=== PATIENT | male | born 1950 | race Caucasian/White ===

== ENCOUNTER → 2017-09-26 | Outpatient (CLI) | payer MEDICARE, MEDICAID ==
[~2017-09-26] MED LIST: ACET-2267 PO; ACET325T38 PO; ACHD5005 PO; ALBU17AE3 IH; ALBU8.5H2 INH; AMIN887L16 PO; AMOX-358 PO; ASPI-983 PO; CALC10009 PO; CALCIUM ALGINATE TOP; CHOL10007 PO; CHOL200059 PO; CHOLESTEROL PILL PO; CIPR-225 PO; CLIN150C17 PO; CLN150C PO; CLOP75TA28 PO; CLOP75TA69 PO; CYAN10006 PO; DCS100C PO; DESV50TA PO; DESV50TA18 PO; DOXY100C2 PO; DULO20CA PO; DULO60CA58 PO; DVL125C PO; ENXP40I.4 SQ; EXELON; FAMO1TAB3 PO; FERR-84 PO; FERR325T18 PO; FOLI1TAB24 PO; GABA-488 PO; GABA-490 PO; GABA300C PO; GUAI100L13 PO; HYDR1TAB PO; IBUP-1780 PO; INSU100I29 SC; INSU100V5 SQ; IPRA3AMP IH; Insulin Human Lispro SC; LACT1CAP57 PO; LACT1CAP8 PO; LITH150C PO; LURA20TA PO; LURA40TA3 PO; MECL-124 PO; MELA1TAB10 PO; MENT5.8L MM; MENT71OI TP; METF-380 PO; METF1000 PO; METF500T4 PO; MULT-928 PO; PIOG45TA18 PO; PIOG45TA7 PO; POLY119P PO; POLY17PO6 PO; PRAV40TA PO; Polyethylene Glycol PO; RIVA1.5C2 PO; RIVA1.5C6 PO; RIVA1PAT TD; SERT100T PO; SIMV40TA4 PO; SULF1TAB35 PO; TRAM50TA2 PO; ZIPR80CA9 PO; ZPR20C PO; [UNRECOGNIZED DRUG - CODE] TP
[2017-09-26 12:09] LABS: BILIRUBIN,URINE NEGATIVE (NEGATIVE); CLARITY,URINE CLEAR; COLOR,URINE YELLOW; GLUCOSE, URINE (UA) 1+ (NEGATIVE); KETONES,URINE NEGATIVE (NEGATIVE); LEUKOCYTE ESTERASE ,URINE 2+ (NEGATIVE); NITRITE,URINE NEGATIVE (NEGATIVE); PH,URINE 6 (5-9); PROTEIN,URINE 1+ (NEGATIVE); UROBILINOGEN,URINE 1 MG/DL (NORMAL)
[2017-09-26 12:17] LABS: BACTERIA,URINE NEGATIVE /HPF; CALCIUM OXALATE CRYSTALS,UR LARGE /LPF; RBC,URINE RARE /HPF; WBC,URINE 0-2 /HPF
== END ==
PROVIDERS: ATTEND Internal Medicine
DX: N40.0 Benign prostatic hyperplasia without lower urinary tract symptoms (principal)
CPT/HCPCS: 81000

== ENCOUNTER 2018-05-13 07:00 | Inpatient (IN) | payer MEDICARE, MEDICAID ==
[~2018-05-13] VITALS: Ht 182.9 cm; Wt 86.7 kg
[~2018-05-13 07:00] MED LIST changes: +DIVA125C PO; -DVL125C PO; -IPRA3AMP IH; +IPRA3AMP31 IH; +METF-399 PO; -METF1000 PO; -PIOG45TA18 PO; +PIOG45TA65 PO
[2018-05-13] MEDS ORDERED: NS IV 1000 ML 1,000 ML ONE (07:21)
--- OUTSIDE RECORDS SUMMARY | 2018-05-13 07:28 | XMS REPORT ---
Author Author PRECIOUS BOTELLO [facility] Address [address] [place] [address] Care Team Providers Care Individual Pension Consultant Name Role Phone PRECIOUS BOTELLO Unavailable PROBLEMS Type Condition ICD9-CM Code LYF27-BQ Code Onset Dates Condition Status SNOMED Code Problem Status post closed fracture of hip Z87.81 Active 621165758 Problem Dementia in other diseases classified elsewhere without behavioral disturbance F02.80 Active 735908293 Problem Type 2 diabetes mellitus with other circulatory complication, without long-term current use of insulin E11.59 Active 48250422 Problem Panlobular emphysema J43.1 Active 0618074 Problem Enlarged prostate with lower urinary tract symptoms N40.1 Active [id number] Problem Benign prostatic hyperplasia with lower urinary tract symptoms N40.1 Active 834739613 Problem Polydipsia R63.1 Active 01438651 Problem Depression F32.9 Active 75433032 Problem Type 2 diabetes mellitus with hyperglycemia E11.65 Active [id number] Problem HTN (hypertension) I10 Active 54678078 Problem Bipolar disorder, unspecified F31.9 Active 67604314 Problem Acute left-sided low back pain with left-sided sciatica M54.42 Active 827132771 Problem Low back pain, unspecified back pain laterality, with sciatica presence unspecified M54.5 Active 284779146 Problem 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 Active 44392674 Problem Type 2 diabetes mellitus with diabetic polyneuropathy E11.42 Active 175620549 Problem GERD with esophagitis K21.0 Active 136375424 Problem Status post partial amputation of left foot Z89.432 Active 867197274 Problem Hammer toe, unspecified laterality M20.40 Active 002310671 Problem Tinea pedis, unspecified laterality B35.3 Active 9229001 Problem Other Alzheimers disease G30.8 Active 31114898 Problem Peripheral vascular disease due to secondary diabetes E13.51 Active 0440553 Problem Severe pain R52 Active 58841657 ALLERGIES Substance Reaction Event Type Date Status Keflex Unknown Drug Allergy Apr, Active ENCOUNTERS Encounter Location Date Diagnosis [facility] [address] [id number] 15 Apr, 2018 Depression F32.9 and Bipolar disorder, unspecified F31.9 [facility] [address] [place] [address] 85446- 7887 13 Apr, 2018 [facility] [id number] [place] [address] 07584- 4634 Apr, [facility] [id number] [place] [address] 33831- 2425 Mar, [facility] [id number] [place] [address] 83258- 0221 14 Feb, 2018 Acute left-sided low back pain with left-sided sciatica M54.42 [facility] [id number] [place] [address] 50073- 5600 Feb, [facility] [address] [id number] Jan, Acute left-sided low back pain with left-sided sciatica M54.42 [facility] [id number] [place] [address] 84318- 6145 Jan, Arthralgia, unspecified joint M25.[address] [facility] [address] [id number] Jan, Left hip pain M25.552 ; Acute pain of left knee M25.562 and Tobacco abuse Z72.0 [facility] [address] [place] [address] 31617- 4765 Jan, [facility] [address] [place] [id number] Jan, Tobacco abuse Z72.0 [facility] [address] [place] [address] 96644- 1041 Dec, [facility] [id number] [place] [address] 30340- 7657 Dec, Arthralgia, unspecified joint M25.50 [facility] [address] [place] [address] 00252- 9478 Dec, [facility] [id number] [place] [address] 71333- 6815 Dec, [facility] [id number] Dec, Dementia in other diseases classified elsewhere without behavioral disturbance F02.80 ; Peripheral vascular disease due to secondary diabetes E13.51 and 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 [facility] [id number] [place] [address] 04744- 2614 Nov, Arthralgia, unspecified joint M25.50 [facility] [id number] [place] [address] 39515- 6321 Nov, [facility] [id number] [place] [address] 12350- 8610 October, Arthralgia, unspecified joint M25.[address] [id number] October, Arthralgia, unspecified joint M25.[address] [id number] Sep, Weakness R53.1 ; Panlobular emphysema J43.1 ; Bipolar disorder, unspecified F31.9 ; Benign prostatic hyperplasia with lower urinary tract symptoms N40.1 and Frequency of micturition R35.0 [facility] [address] [address] 0528 Sep, [facility] [id number] [place] [address] 25475- 1474 Aug, [address] [id number] Jul, Dementia in other diseases classified elsewhere without behavioral disturbance F02.80 [facility] [id number] [place] [address] [id number] Jul, [facility] [id number] [address] 4056 Jun, Bipolar disorder, unspecified F31.[address] [facility] [address] [id number] Jun, Pneumonia due to infectious organism, unspecified laterality, unspecified part of lung J18.9 [facility] [id number] [place] [address] 45989- 6046 Jun, [facility] [id number] [place] [address] [id number] Jun, [facility] [address] [id number] Apr, Type 2 diabetes mellitus with other circulatory complication, without long -term current use of insulin E11.59 [facility] [id number] [place] [address] 14857- 9306 Apr, [facility] [id number] [place] [address] [id number] Feb, [facility] [id number] [place] [address] [id number] Feb, [facility] [address] [id number] Feb, Sore throat J02.9 and Polyuria R35.8 [facility] [id number] [place] [address] [id number] Jan, Bronchitis J40 [facility] [address] [id number] Dec, Cervicalgia M54.2 [facility] [address] [place] [address] 99800- 4723 October, Acute left-sided low back pain with left-sided sciatica M54.42 and Cervicalgia M54.2 [facility] [address] [address]- 6926 Sep, Acute left-sided low back pain with left-sided sciatica M54.42 [facility] [id number] [id number] Sep, Cervicalgia M54.[address] [id number] Sep, Cervicalgia M54.2 and Acute left-sided low back pain with left-sided sciatica M54.42 [facility] [id number] [place] [address] [id number] Sep, [address] [id number] Jul, Type 2 diabetes mellitus with hyperglycemia E11.65 ; Bipolar disorder F31.9 ; 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 ; Peripheral vascular disease due to secondary diabetes E13.51 and Status post partial amputation of left foot Z89.432 [facility] [id number] [place] [address] 11508- 5972 Mar, [facility] [id number] [place] [address] 93416- 2015 Mar, [facility] [address] [place] [address] 38659- 9742 Mar, [address] [id number] Mar, Dementia in other diseases classified elsewhere without behavioral disturbance F02.80 ; Polydipsia R63.1 ; HTN (hypertension) I10 ; Hypo- osmolality and hyponatremia E87.1 ; Type 2 diabetes mellitus with other circulatory complication, without long-term current use of insulin E11.59 ; Peripheral vascular disease due to secondary diabetes E13.51 and Bipolar disorder, unspecified F31.9 [facility] [address] [place] [address] 29341- 5477 Feb, [facility] [id number] [place] [address] 83871- 3982 Jan, [facility] [address] [address]- 5114 Jan, [address] [place] [id number] Jan, Pain of left hip joint M25.552 ; Tobacco abuse Z72.0 and Polydipsia R63.1 [facility] [address] [address]- 7213 Jan, [facility] [address] [address]- 6578 Jan, [facility] [address] [address] 2002 Dec, [facility] [id number] [place] [address] 89372- 5303 Dec, [facility] [address] [id number] Dec, Status post partial amputation of left foot Z89.432 and Peripheral vascular disease due to secondary diabetes E13.51 [facility] [address], [place] [address]- 0360 Dec, [facility] [address], [place] [address]- 1653 Dec, [facility] [address], [place] [address]- 3025 Dec, [facility] [address] [address]- 4639 Nov, [facility] [address] [address]- 2406 Nov, [facility] [address] [id number] Nov, Severe pain R52 and Status post closed fracture of hip Z87.81 [facility] [address] [address]- 2900 Nov, [facility] [address], [place] [address]- 6415 Nov, [facility] [address] [address]- 3846 October, Severe pain R52 [facility] [facility] [address] [place] [address] 50903- 8159 October, [facility] [id number] [place] [address] 42168- 3694 October, Other Alzheimers disease G30.8 and Dementia in other diseases classified elsewhere without behavioral disturbance F02.80 [facility] [address] [place] [address] 40830- 0160 Sep, [facility] [id number] [place] [address] 68171- 7486 Aug, [facility] [address] [id number] Aug, Status post partial amputation of left foot Z89.432 ; 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 and Peripheral vascular disease due to secondary diabetes E13.51 [address] [place] [address] 06302- 4132 Jun, [address] [place] [address] 05518- 5235 Jun, [facility] [address] [id number] Jun, 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 and Status post partial amputation of left foot Z89.432 [facility] [address] [place] [id number] May, Peripheral vascular disease due to secondary diabetes E13.51 ; Status post partial amputation of left foot Z89.432 and 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 [place] [facility] [address] [place] [address] 67539- 2903 Mar, Gangrene associated with type II diabetes mellitus E11.52 [facility] [address], [place] [address]- 9413 Mar, [facility] [address] [id number] Mar, [facility] [address], [place] [address]- 9259 Feb, Nicotine abuse 305.1 [facility] [address], [place] [address]- 4206 Feb, [facility] [address], [place] [address]- 2290 Feb, [facility] [id number] [place] [address] 27759- 1632 Jan, [facility] [address], [place] [address]- 6774 Jan, Diabetes 250.00 ; Peripheral vascular disease 443.9 and Bipolar affective disorder 296.80 [facility] [address], [place] [address]- 1379 Dec, [facility] [id number] [place] [address] 69411- 6278 Dec, [facility] [address], [place] [address]- 6560 Dec, [facility] [address], [place] [address]- 6500 Dec, [facility] [id number], [place] [address]- 3450 Dec, Diabetes mellitus without mention of complication, type II or unspecified type, uncontrolled 250.02 and Vertigo 780.4 [facility] [id number], [place] [address]- 5851 Nov, [facility] [id number], [place] [address]- 4535 October, Follow-up examination V67.9 ; Diabetes mellitus without mention of complication, type II or unspecified type, uncontrolled 250.02 and Upper respiratory infection 465.9 [facility] [id number], [place] [address]- 9399 October, [facility] [place] [facility] [address] [id number] [place] [address]- 0227 14 Sep, 2014 [facility] [place] [facility] [address] [id number] [place] [address]- 0250 Sep, [facility] [place] [facility] [address] [id number] [place] [address]- 6849 Aug, [facility] [place] [facility] [address] [id number] [place] [address]- 2865 Aug, [facility] [place] [facility] [address] [id number] [place] [address]- 6405 Aug, [facility] [place] [facility] [address] [id number] [place] [address]- 3388 Jul, 2014 [facility] [place] [facility] [address] [id number] [place] [address]- 4455 Jul, 2014 [facility] [place] [facility] [address] [id number] [place] [address]- 6206 Jul, 2014 [facility] [place] [facility] [address] [id number] [place] [address]- 3443 Jul, [facility] [place] [facility] [address] [id number] [place] [address]- 0314 May, [facility] [place] [facility] [address] [id number] [place] [address]- 0881 May, [facility] [place] [facility] [address] [id number] [place] [address]- 2695 May, [facility] [place] [facility] [address] [id number] [place] [address]- 6504 May, [facility] [place] [facility] [address] [id number] [place] [address]- 6955 Apr, [facility] [place] [facility] [address] [id number] [place] [address]- 2061 Apr, [facility] [place] [facility] [address] [id number], [place] [address]- 0885 16 Mar, 2013 [facility] [place] [facility] [address] [id number] [place] [address]- 7010 16 Mar, 2013 [facility] [place] [facility] [address] [id number] [place] [address]- 9729 07 Mar, 2013 [facility] [place] [facility] [address] [id number] [place] [address]- 7985 07 Mar, 2013 [facility] [place] [facility] [address] [id number] [place] [address]- 1435 29 Sep, 2013 [facility] [place] [facility] [address] [id number] [place] [address]- 6451 29 Sep, 2013 [facility] [place] [facility] [address] [id number] [place] [address]- 0136 23 Sep, 2013 [facility] [place] [facility] [address] [id number] [place] [address]- 4237 23 Sep, 2013 [facility] [place] [facility] [address] [id number] [place] [address]- 2743 22 Sep, 2013 [facility] [place] [facility] [address] [id number] [place] [address]- 0060 22 Sep, 2013 [facility] [place] [facility] [address] [id number] [place] [address]- 9664 16 Sep, 2013 [facility] [place] [facility] [address] [id number] [place] [address]- 2544 16 Sep, 2013 [facility] [place] [facility] [address] [id number], [place] [address]- 2540 16 Sep, 2013 [facility] [place] [facility] [address] [id number] [place] [address]- 254 16 Sep, 2013 [facility] [place] [facility] [address] [id number] [place] [address]- 2542 16 Sep, 2013 [facility] [place] [facility] [address] [id number] [place] [address]- 4806 16 Sep, 2013 [facility] [place] [facility] [address] [id number] [place] [address]- 2267 11 Feb, 2013 [facility] [place] [facility] [address] [id number] [place] [address]- 2231 11 Feb, 2013 [facility] [place] [facility] [address] [id number] [place] [address]- 2916 10 Feb, 2013 [facility] [place] [facility] [address] [id number] [place] [address]- 7655 10 Feb, 2013 [facility] [place] [facility] [address] [id number] [place] [address]- 4645 07 Feb, 2013 [facility] [place] [facility] [address] [id number] [place] [address]- 1202 04 Feb, 2013 [facility] [place] [facility] [address] [id number] [place] [address]- 7041 04 Feb, 2013 [facility] [place] [facility] [address] [id number] [place] [address]- 4767 Feb, 2013 [facility] [place] [facility] [address] [id number] [place] [address]- 9309 Feb, [facility] [place] [facility] [address] [id number] [place] [address]- 3635 Jan, [facility] [place] [facility] [address] [id number] [place] [address]- 4817 Jan, [facility] [place] [facility] [address] [id number] [place] [address]- 7020 Jan, [facility] [place] [facility] [address] [id number] [place] [address]- 2575 Jan, [facility] [place] [facility] [address] [id number] [place] [address]- 1335 Nov, [facility] [place] [facility] [address] [id number] [place] [address]- 3504 Nov, [facility] [place] [facility] [address] [id number] [place] [address]- 6002 October, [facility] [place] [facility] [address] [id number] [place] [address]- 9941 October, [facility] [place] [facility] [address] [id number] [place] [address]- 3356 October, [facility] [place] [facility] [address] [id number] [place] [address]- 4616 October, [facility] [place] [facility] [address] [id number] [place] [address]- 8356 October, [facility] [place] [facility] [address] [id number] [place] [address]- 9978 October, [facility] [place] [facility] [address] [id number] [place] [address]- 5796 October, [facility] [place] [facility] [address] [id number] [place] [address]- 1579 October, [facility] [place] [facility] [address] [id number] [place] [address]- 0055 Sep, [facility] [place] [facility] [address] [id number] [place] [address]- 7421 Sep, [facility] [place] [facility] [address] [id number] [place] [address]- 9861 Sep, [facility] [place] [facility] [address] [id number] [place] [address]- 2286 Sep, [facility] [place] [facility] [address] [id number], [place] [address]- 9055 Jul, [facility] [place] [facility] [address] [id number] [place] [address]- 5579 Jul, [facility] [place] [facility] [address] [id number] [place] [address]- 6227 May, [facility] [place] [facility] [address] [id number] [place] [address]- 5202 May, [facility] [place] [facility] [address] [id number] [place] [address]- 5578 Apr, [facility] [place] [facility] [address] [id number] [place] [address]- 3168 Apr, [facility] [place] [facility] [address] [id number] [place] [address]- 6141 Apr, [facility] [place] [facility] [address] [id number] [place] [address]- 4339 Apr, [facility] [place] [facility] [address] [id number] [place] [address]- 8837 Mar, [facility] [place] [facility] [address] [id number] [place] [address]- 9547 Mar, [facility] [place] [facility] [address] [id number] [place] [address] 2540 Mar, [facility] [place] [facility] [address] [id number] [place] [address]- 6201 Mar, [facility] [place] [facility] [address] [id number] [place] [address]- 9398 Feb, [facility] [place] [facility] [address] [id number] [place] [address]- 6553 Jan, [facility] [place] [facility] [address] [id number] [place] [address]- 0422 Jan, [facility] [place] [facility] [address] [id number] [place] [address]- 0569 Jan, [facility] [place] [facility] [address] [id number] [place] [address]- 2549 Dec, [facility] [place] [facility] [address] [id number] [place] [address]- 5247 October, [facility] [place] [facility] [address] [id number] [place] [address] 2546 October, [facility] [place] [facility] [address] [id number] [place] [address]- 8305 October, [facility] [place] [facility] [address] [id number] [place] [address]- 9114 October, [facility] [address] [id number] [place] [address]- 6362 October, [facility] [address] [id number] [place] [address]- 2856 October, [facility] [address] [id number] [place] [address]- 9436 Sep, [facility] [address] [id number] [place] [address]- 9543 Sep, [facility] [address] [id number] [place] [address]- 0961 Jul, [facility] [address] [id number] [place] [address]- 6092 Jun, [facility] [address] [id number] [place] [address]- 8358 Jun, [facility] [address] [id number] [place] [address]- 3525 Jun, [facility] [address] [id number] [place] [address] May, [facility] [address] [id number] [place] [address] May, [facility] [address] [id number] [place] [address] May, [facility] [address] [id number] [place] [address] May, [facility] [address] [id number] [place] May, [facility] [address] [id number] [place] [address] May, [facility] [address] [id number] [place] [address] Mar, [facility] [place] [facility] [address] [id number] [place] [address] Mar, [facility] [place] [facility] [address] [id number] [place] [address] Mar, [facility] [place] [facility] [address] [id number] [place] [address] Mar, [facility] [place] [facility] [address] [id number] [place] [address] Feb, [facility] [place] [facility] [address] [id number] [place] [address] Dec, [facility] [place] [facility] [address] [id number] [place] [address] Dec, [facility] [place] [facility] [address] [id number] [place] [address] Dec, [facility] [place] [facility] [address] [id number] [place] [address] Nov, [facility] [place] [facility] [address] [id number] [place] [address] Nov, [facility] [place] [facility] [address] [id number] [place] [address] Nov, [facility] [place] [facility] [address] [id number] [place] [address] Nov, [facility] [place] [facility] [address] [id number] [place] [address] Aug, [facility] [place] [facility] [address] [id number] [place] [address] Jun, [facility] [place] [facility] [address] [id number] [place] [address] May, [facility] [place] [facility] [address] [id number] [place] [address] Apr, [facility] [place] [facility] [address] [id number] [place] [id number] Mar, [facility] [address] [facility] [id number] [id number] May, IMMUNIZATIONS No Known Immunizations SOCIAL HISTORY Never Assessed REASON FOR VISIT Routine Visit PLAN OF CARE Activity Details Follow Up prn Reason: VITAL SIGNS MEDICATIONS Medication Instructions Dosage Frequency Start Date End Date Duration Status Simvastatin 20 mg Orally Once a day 1 tablet in the evening 24h 30 days Active Clopidogrel Bisulfate 75 MG TAKE 1 TABLET BY MOUTH ONCE DAILY 30 Active Stress B Complex/Zinc by oral route Once a day 1 tablet 24h Active Zinc Oxide 10 % as directed Active Aspirin Adult Low Dose 81 MG Orally Once a day 1 tablet 24h Active Folic Acid 1 MG Orally Once a day 1 tablet 24h Active Calmoseptine 0.44-20.6 % Externally to buttocks as needed Not- Taking Latuda 40 MG TAKE 1 TABLET BY MOUTH EVERY DAY 30 Active Exelon 1.5 MG Orally Twice a day 1 capsule with food 12h October, 30 day(s) Active Albuterol Sulfate 1.25 MG/3ML Inhalation every 12 hours 3 ml as needed 12h Active Tamsulosin HCl 0.4 MG TAKE 1 CAPSULE BY MOUTH ONCE DAILY 30 Active Gabapentin 300 MG TAKE 1 CAPSULE BY MOUTH THREE TIMES DAILY 30 Active Actos 45 MG Orally Once a day 1 tablet 24h Apr, Active MiraLax 17 gm/dose Orally once daily as needed 17 grams mixed in 8 oz of water or juice Active Ferrous Sulfate 325 (65 Fe) MG Orally Once a day 1 tablet 24h Active Metformin HCl 1000 MG TAKE 1 TABLET BY MOUTH TWICE DAILY 30 Active Tums 500 mg Orally every 12 hrs 1 tablet as needed 12h Active Cough Drops 5.8 MG Mouth/Throat every 2-4 hrs 1 lozenge as needed Active Vitamin D3 2000 UNIT Orally Once a day 1 capsule 24h Active Ibuprofen 200 mg Orally Three times a day with the Tramado 1 capsule Jan, Apr, 30 days Active Tramadol HCl 50 mg Orally 4 times a day 1 tablet as needed 6h 17 Mar, 2018 28 days Active Venlafaxine HCl ER 150 MG TAKE 1 CAPSULE BY MOUTH ONCE DAILY 30 Active Lactobacillus Orally Once a day 1 tablet 24h Active Pioglitazone HCl 45 MG TAKE 1 TABLET BY MOUTH EVERY DAY 30 Not- Taking Carlota-Tussin 100 MG/5ML Orally every 6 hrs 15 ml as needed 6h Active Rivastigmine Tartrate 1.5 MG TAKE 1 CAPSULE BY MOUTH TWICE DAILY 30 Not-Taking RESULTS No Results PROCEDURES Procedure Date Ordered Result Body Site Minor complication (15 mins) May 07, 2018 INSTRUCTIONS MEDICATIONS ADMINISTERED No Known Medications MEDICAL (GENERAL) HISTORY Type Description Date Medical History diabetes mellitus Medical History back pain Medical History peripheral neuropathy Medical History hyperlipidemia Medical History Bipolar Medical History constipation Medical History hyponatremia Medical History polydipsia Medical History muscle weakness Medical History catatonia Surgical History orthopedic surgery Surgical History S/P Left hip IM nail (Left Femoral Neck Fracture) 11/18/15 Hospitalization History Left Femoral Neck Fracture with left hip IM Nail 11/16 Hospitalization History [facility]. discharged 07/07/17 07/04/17
[2018-05-13 07:29] LABS: BASOPHILS % (AUTO) 0 % (0-10); EOSINOPHILS # (AUTO) 0.3 10^3/uL (0.0-0.3); EOSINOPHILS % (AUTO) 2 % (0-10); HEMATOCRIT 35 % (40-54); HEMOGLOBIN 12.3 G/DL (13.3-17.7); LYMPHOCYTES # (AUTO) 0.8 X 10^3 (1.0-4.0); LYMPHOCYTES % (AUTO) 6 % (12-44); MEAN CORPUSCULAR HEMOGLOBIN 33 PG (25-34); MEAN CORPUSCULAR HGB CONC 35 G/DL (32-36); MEAN CORPUSCULAR VOLUME 93 FL (80-99); MEAN PLATELET VOLUME 9.4 FL (7.4-10.4); MONOCYTES # (AUTO) 1.8 X 10^3 (0.0-1.0); MONOCYTES % (AUTO) 14 % (0-12); NEUTROPHILS # (AUTO) 10.1 X 10^3 (1.8-7.8); NEUTROPHILS % (AUTO) 78 % (42-75); PLATELET COUNT 231 10^3/uL (130-400); RED BLOOD COUNT 3.79 10^6/uL (4.35-5.85); RED CELL DISTRIBUTION WIDTH 12.4 % (10.0-14.5)
--- OUTSIDE RECORDS SUMMARY | 2018-05-13 07:29 | XMS REPORT ---
Author Author PRECIOUS BOTELLO [facility] Address [address] [place] [address] Care Team Providers Care Systems Librarian Name Role Phone PRECIOUS BOTELLO Unavailable PROBLEMS Type Condition ICD9-CM Code BJS07-UQ Code Onset Dates Condition Status SNOMED Code Problem Status post closed fracture of hip Z87.81 Active 556636221 Problem Dementia in other diseases classified elsewhere without behavioral disturbance F02.80 Active 164771800 Problem Type 2 diabetes mellitus with other circulatory complication, without long-term current use of insulin E11.59 Active 82191155 Problem Panlobular emphysema J43.1 Active 1378382 Problem Enlarged prostate with lower urinary tract symptoms N40.1 Active [id number] Problem Benign prostatic hyperplasia with lower urinary tract symptoms N40.1 Active 137056745 Problem Polydipsia R63.1 Active 27728786 Problem Depression F32.9 Active 34032554 Problem Type 2 diabetes mellitus with hyperglycemia E11.65 Active 815668043027084 Problem HTN (hypertension) I10 Active 38676005 Problem Bipolar disorder, unspecified F31.9 Active 79489075 Problem Acute left-sided low back pain with left-sided sciatica M54.42 Active 884905121 Problem Low back pain, unspecified back pain laterality, with sciatica presence unspecified M54.5 Active 265030379 Problem 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 Active 53119105 Problem Type 2 diabetes mellitus with diabetic polyneuropathy E11.42 Active 765711128 Problem GERD with esophagitis K21.0 Active 582700334 Problem Status post partial amputation of left foot Z89.432 Active 124864578 Problem Hammer toe, unspecified laterality M20.40 Active 169307548 Problem Tinea pedis, unspecified laterality B35.3 Active 3768920 Problem Other Alzheimers disease G30.8 Active 40440014 Problem Peripheral vascular disease due to secondary diabetes E13.51 Active 7247232 Problem Severe pain R52 Active 42743318 ALLERGIES No Information ENCOUNTERS Encounter Location Date Diagnosis [facility] [address], [place] [address] Apr, [facility] [address], [place] [address] Apr, [facility] [address], [place] [address] Mar, [facility] [id number] [place] [address] 30216- 5180 Feb, Acute left-sided low back pain with left-sided sciatica M54.42 [facility] [id number] [place] [address] 12047- 5967 Feb, [facility] [address] [id number] Jan, Acute left-sided low back pain with left-sided sciatica M54.42 [facility] [id number] [place] [address] 57752- 9319 Jan, Arthralgia, unspecified joint M25.[address] [facility] [address] [id number] Jan, Left hip pain M25.552 ; Acute pain of left knee M25.562 and Tobacco abuse Z72.0 [place] [id number] [place] [address] 95605- 4434 Jan, [facility] [address] [id number] Jan, Tobacco abuse Z72.0 [facility] [address], [place] [address] Dec, [facility] [id number] [place] [address] 39770- 1310 Dec, Arthralgia, unspecified joint M25.50 [facility] [address], [place] [address]- 4749 Dec, [place] [id number] [place] [address] 25083- 4809 Dec, [facility] [address] [id number] Dec, Dementia in other diseases classified elsewhere without behavioral disturbance F02.80 ; Peripheral vascular disease due to secondary diabetes E13.51 and 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 [place] [id number] [place] [address] 63267- 8000 Nov, Arthralgia, unspecified joint M25.50 [place] [id number] [place] [address] 34052- 9033 Nov, [place] [id number] [place] [address] 677537- 5553 October, Arthralgia, unspecified joint M25.[address] [id number] October, Arthralgia, unspecified joint M25.[address] [facility] [address] [id number] Sep, Weakness R53.1 ; Panlobular emphysema J43.1 ; Bipolar disorder, unspecified F31.9 ; Benign prostatic hyperplasia with lower urinary tract symptoms N40.1 and Frequency of micturition R35.0 [place] [address] [place] [address] 66421- 4002 Sep, [place] [address] [place] [address] 32011- 3814 Aug, [facility] [address] [id number] Jul, Dementia in other diseases classified elsewhere without behavioral disturbance F02.80 [place] [id number] [place] [address] [id number] Jul, [place] [id number] [place] [address] [id number]- 2212 Jun, Bipolar disorder, unspecified F31.[address] [facility] [address] [id number] Jun, Pneumonia due to infectious organism, unspecified laterality, unspecified part of lung J18.9 [facility] [address], [place] [address] 9976 Jun, [facility] [id number] [id number] Jun, [facility] [address] [id number] Apr, Type 2 diabetes mellitus with other circulatory complication, without long -term current use of insulin E11.59 [place] [address] [place] [address] 57042- 1276 Apr, [facility] [id number] [place] [address] [id number] Feb, [place] [id number] [place] [address] [id number] Feb, [facility] [address] [id number] Feb, Sore throat J02.9 and Polyuria R35.8 [facility] [id number] [place] [address] [id number] Jan, Bronchitis J[address] [facility] [id number] Dec, Cervicalgia M54.2 [facility] [address] [place] [address] 07500- 0723 October, Acute left-sided low back pain with left-sided sciatica M54.42 and Cervicalgia M54.2 [facility] [address], [place] [address]- 6945 Sep, Acute left-sided low back pain with left-sided sciatica M54.42 [facility] [id number] [id number] Sep, Cervicalgia M54.[address] [facility] [address] [id number] Sep, Cervicalgia M54.2 and Acute left-sided low back pain with left-sided sciatica M54.42 [facility] [id number] [place] [address] [id number] Sep, [facility] [id number] Jul, Type 2 diabetes mellitus with hyperglycemia E11.65 ; Bipolar disorder F31.9 ; 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 ; Peripheral vascular disease due to secondary diabetes E13.51 and Status post partial amputation of left foot Z89.432 [place] [id number] [place] [address] 30346- 2800 Mar, [place] [id number] [place] [address] 59324- 3831 Mar, [place] [id number] [place] [address] 60969- 8235 Mar, [address] [id number] Mar, Dementia in other diseases classified elsewhere without behavioral disturbance F02.80 ; Polydipsia R63.1 ; HTN (hypertension) I10 ; Hypo- osmolality and hyponatremia E87.1 ; Type 2 diabetes mellitus with other circulatory complication, without long-term current use of insulin E11.59 ; Peripheral vascular disease due to secondary diabetes E13.51 and Bipolar disorder, unspecified F31.9 [place] [address], [place] [address]- 7148 Feb, [place] [address] [place] [address] 81911- 4309 Jan, [address] [place] [address] 14021- 9241 Jan, [facility] [id number] Jan, Pain of left hip joint M25.552 ; Tobacco abuse Z72.0 and Polydipsia R63.1 [place] [id number], [place] [address]- 1838 Jan, [facility] [address] [facility] [id number] [address] 6442 Jan, [facility] [address] [facility] [id number] [address]- 2894 Dec, [facility] [address], [place] [address]- 3318 Dec, [facility] [place] [address] [id number] Dec, Status post partial amputation of left foot Z89.432 and Peripheral vascular disease due to secondary diabetes E13.51 [facility] [id number], [place] [address]- 2476 Dec, [facility] [id number], [place] [address]- 2182 Dec, [facility] [address], [place] [address]- 2439 Dec, [facility] [id number], [place] [address]- 9109 Nov, [facility] [id number], [place] [address]- 7458 Nov, [facility] [place] [address] [id number] Nov, Severe pain R52 and Status post closed fracture of hip Z87.81 [facility] [address] [facility] [id number], [place] [address]- 3700 Nov, [facility] [address] [facility] [id number] 6988 Nov, [facility] [address] [facility] [id number] 4173 October, Severe pain R52 [facility] [id number] 0353 October, [place] [address], [place] [address]- 9676 October, Other Alzheimers disease G30.8 and Dementia in other diseases classified elsewhere without behavioral disturbance F02.80 [place] [address], [place] [address]- 5584 Sep, [place] [id number] [place] [address] 90635- 4205 Aug, [facility] [id number] Aug, Status post partial amputation of left foot Z89.432 ; 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 and Peripheral vascular disease due to secondary diabetes E13.51 [place] [address] [place] [address] 36896- 3733 Jun, [id number] [place] [address] 40706- 3219 Jun, [facility] [address] [id number] Jun, 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 and Status post partial amputation of left foot Z89.[address] [id number] May, Peripheral vascular disease due to secondary diabetes E13.51 ; Status post partial amputation of left foot Z89.432 and 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 [place] [address] [place] [address] 89240- 0990 Mar, Gangrene associated with type II diabetes mellitus E11.52 [place] [address] [place] [address] 27269- 5978 Mar, [facility] [address] [id number] Mar, [place] [address] [place] [address] 46980- 0746 16 Feb, 2015 Nicotine abuse 305.1 [address] [id number] [place] [address] 49951- 1780 Feb, [facility] [id number], [place] [address]- 1753 Feb, [facility] [address], [place] [address]- 0055 Jan, [facility] [address] 4403 Jan, Diabetes 250.00 ; Peripheral vascular disease 443.9 and Bipolar affective disorder 296.80 [facility] [id number], [place] [address]- 7227 Dec, [facility] [address] 8145 Dec, [facility] [address], [place] [address]- 2250 Dec, [facility] [address], [place] [address]- 7681 Dec, [facility] [id number], [place] [address]- 2089 Dec, Diabetes mellitus without mention of complication, type II or unspecified type, uncontrolled 250.02 and Vertigo 780.4 [facility] [id number], [place] [address]- 0069 Nov, [facility] [id number] 2126 October, Follow-up examination V67.9 ; Diabetes mellitus without mention of complication, type II or unspecified type, uncontrolled 250.02 and Upper respiratory infection 465.9 [facility] [id number], [place] [address]- 0346 October, [facility] [id number] 2883 Sep, [facility] [id number], [place] [address]- 9580 Sep, [facility] [place] [facility] [address] [id number] [place] [address]- 4328 Aug, [facility] [place] [facility] [address] [id number] [place] [address]- 9877 Aug, 2014 [facility] [place] [facility] [address] [id number] [place] 9377 Aug, [facility] [place] [facility] [address] [id number] [place] [address]- 4051 Jul, 2014 [facility] [place] [facility] [address] [id number] [place] [address]- 6144 Jul, [facility] [place] [facility] [address] [id number] [place] [address]- 0782 Jul, [facility] [place] [facility] [address] [id number] [place] [address]- 1993 Jul, [facility] [place] [facility] [address] [id number] [place] [address]- 5826 May, [facility] [place] [facility] [address] [id number] [place] [address]- 6929 May, [facility] [place] [facility] [address] [id number] [place] [address]- 9988 May, [facility] [place] [facility] [address] [id number] [place] [address]- 9269 May, [facility] [place] [facility] [address] [id number] [place] [address]- 4247 Apr, [facility] [place] [facility] [address] [id number] [place] [address]- 7929 Apr, [facility] [place] [facility] [address] [id number] [place] 0438 Mar, [facility] [place] [facility] [address] [id number] [place]- 3959 Mar, [facility] [place] [facility] [address] [id number] [place] [address]- 9327 07 Mar, 2013 [facility] [place] [facility] [address] [id number] [place] [address]- 2998 07 Mar, 2013 [facility] [place] [facility] [address] [id number] [place] [address]- 2546 29 Sep, 2013 [facility] [place] [facility] [address] [id number] [place] [address]- 6181 29 Sep, 2013 [facility] [place] [facility] [address] [id number] [place] [address]- 2543 23 Sep, 2013 [facility] [place] [facility] [address] [id number] [place] [address]- 8250 23 Sep, 2013 [facility] [place] [facility] [address] [id number] [place] [address]- 6142 22 Sep, 2013 [facility] [place] [facility] [address] [id number] [place] [address]- 2545 22 Sep, 2013 [facility] [place] [facility] [address] [id number] [place] [address]- 2541 16 Sep, 2013 [facility] [place] [facility] [address] [id number] [place] [address]- 2540 16 Sep, 2013 [facility] [place] [facility] [address] [id number] [place] [address]- 2545 16 Sep, 2013 [facility] [place] [facility] [address] [id number] [place] [address] 2544 16 Sep, 2013 [facility] [place] [facility] [address] [id number] [place] [address]- 2549 16 Sep, 2013 [facility] [place] [facility] [address] [id number] [place] [address]- 2548 16 Sep, 2013 [facility] [place] [facility] [address] [id number] [place] [address]- 2545 11 Sep, 2013 [facility] [place] [facility] [address] [id number] [place]- 7068 11 Sep, 2013 [facility] [place] [facility] [address] [id number] [place] [address]- 0261 10 Feb, 2013 [facility] [place] [facility] [address] [id number] [place] [address]- 0625 10 Feb, 2013 [facility] [place] [facility] [address] [id number] [place] [address]- 1360 07 Feb, 2013 [facility] [place] [facility] [address] [id number] [place] [address]- 6421 04 Feb, 2013 [facility] [place] [facility] [address] [id number] [place] [address]- 7909 04 Feb, 2013 [facility] [place] [facility] [address] [id number] [place] [address]- 6390 Feb, 2013 [facility] [place] [facility] [address] [id number] [place] [address]- 3331 Feb, 2013 [facility] [place] [facility] [address] [id number] [place] [address]- 1489 Jan, [facility] [place] [facility] [address] [id number] [place] [address]- 6138 Jan, [facility] [place] [facility] [address] [id number] [place] [address]- 4903 Jan, [facility] [place] [facility] [address] [id number] [place] [address]- 0134 Jan, [facility] [place] [facility] [address] [id number], [place] [address]- 8094 Nov, [facility] [place] [facility] [address] [id number] [place] [address]- 6480 Nov, [facility] [place] [facility] [address] [id number] [place] [address]- 1437 October, [facility] [place] [facility] [address] [id number] [place] [address]- 4800 October, [facility] [place] [facility] [address] [id number], [place] [address]- 4365 October, [facility] [address] [id number] [place] [address]- 1199 October, [facility] [place] [facility] [address] [id number] [place] [address]- 5149 October, [facility] [address] [id number] [place] [address]- 2471 October, [facility] [place] [facility] [address] [id number] [place] [address]- 2099 October, [facility] [address] [id number] [place] [address]- 9432 October, [facility] [address] [id number] [place] [address]- 2206 Sep, [facility] [address] [id number] [place] [address]- 8784 Sep, [facility] [place] [facility] [address] [id number] [place] [address]- 2225 Sep, [facility] [address] [id number] [place] [address]- 9896 Sep, [facility] [place] [facility] [address] [facility] [id number] [place] [address]- 4198 Jul, [facility] [place] [facility] [address] [id number] [place] [address]- 3892 Jul, [facility] [place] [facility] [address] [id number] [place] [address]- 7081 May, [facility] [place] [facility] [address] [id number] [place] 7449 May, [facility] [place] [facility] [address] [id number] [place] [address]- 1593 Apr, [facility] [place] [facility] [address] [facility] [id number] [place] 0297 Apr, [facility] [place] [facility] [address] [id number] [place] [address] 2549 Apr, [facility] [place] [facility] [address] [id number] [place] [address]- 0863 Apr, [facility] [place] [facility] [address] [id number] [place] [address]- 2546 Mar, [facility] [place] [facility] [address] [id number] [place] [address] 2540 Mar, [facility] [place] [facility] [address] [id number] [place] [address]- 2540 Mar, [facility] [place] [facility] [address] [id number] [place] [address]- 2549 Mar, [facility] [place] [facility] [address] [id number] [place] [address] 2540 Feb, [facility] [place] [facility] [address] [id number] [place] [address]- 5162 Jan, [facility] [place] [facility] [address] [id number] [place] [address]- 2525 Jan, [facility] [place] [facility] [address] [id number] [place] [address]- 5319 Jan, [facility] [place] [facility] [address] [id number] [place] [address]- 6400 Dec, [facility] [place] [facility] [address] [id number] [place] [address]- 0306 October, [facility] [place] [facility] [address] [id number] [place] [address]- 4188 October, [facility] [place] [facility] [address] [id number] [place] [address]- 5336 October, [facility] [place] [facility] [address] [id number] [place] [address]- 2546 October, [facility] [place] [facility] [address] [id number] [place] [address]- 2684 October, [facility] [address] [id number] [place] [address]- 1209 October, [facility] [address] [id number] [place] [address]- 8639 Sep, [facility] [address] [facility] [id number] [place] [address]- 0907 Sep, [facility] [address] [id number] [place] [address]- 8355 Jul, [facility] [address] [id number] [place] [address]- 6899 Jun, [facility] [address] [id number] [place] 7794 Jun, [facility] [address] [id number] [place] [address]- 7649 Jun, [facility] [address] [id number] [place] [address]- 8156 May, [facility] [address] [id number] [place] [address]- 5155 May, [facility] [place] [facility] [address] [id number] [place] [address]- 9011 May, [facility] [address] [id number], [place] [address]- 8857 May, [facility] [place] [facility] [address] [id number], [place] [address]- 2522 May, [facility] [place] [facility] [address] [id number] [place] 3741 May, [facility] [place] [facility] [address] [facility] [place] [id number] [place] [address] Mar, [facility] [place] [facility] [address] [facility] [place] [id number] [place] [address] Mar, [facility] [place] [facility] [address] [id number] [place] [address] Mar, [facility] [address] [id number] [place] [address] Mar, [facility] [address] [id number] [place] [address] Feb, [facility] [address] [id number] [place] [address] Dec, [facility] [address] [id number] [place] [address] Dec, [facility] [address] [facility] [place] [id number] [place] [address], [place] [address] Dec, [facility] [address] [facility] [place] [id number] [place] [address] Nov, [facility] [address] [facility] [place] [id number] [place] [address] Nov, [facility] [address] [facility] [place] [id number] [place] [address] Nov, [facility] [id number] [place] [address] Nov, [facility] [address] [facility] [place] [id number] [place] [address] Aug, [facility] [address] [facility] [place] [id number] [place] [address] Jun, [facility] [address] [facility] [place] [id number] [place] [address] May, [facility] [address] [facility] [place] [id number] [place] [address] Apr, [facility] [address] [facility] [place] [id number] [place] [address] Mar, [facility] [address] [facility] [place] [id number] [place] [address] May, IMMUNIZATIONS No Known Immunizations SOCIAL HISTORY Never Assessed REASON FOR VISIT Controlled Med Refill 05/06/18 PLAN OF CARE VITAL SIGNS MEDICATIONS Medication Instructions Dosage Frequency Start Date End Date Duration Status Tramadol HCl 50 mg Orally 4 times a day 1 tablet as needed 6h Mar, 28 days Active RESULTS No Results PROCEDURES No Known procedures INSTRUCTIONS MEDICATIONS ADMINISTERED No Known Medications MEDICAL [...]
--- OUTSIDE RECORDS SUMMARY | 2018-05-13 07:29 | XMS REPORT ---
Author Author PRECIOUS BOTELLO [facility] Address [address] [place] [address] Care Team Providers Care Office Clerk Routine Name Role Phone PRECIOUS BOTELLO Unavailable PROBLEMS Type Condition ICD9-CM Code CPG56-DH Code Onset Dates Condition Status SNOMED Code Problem Status post closed fracture of hip Z87.81 Active 432982383 Problem Dementia in other diseases classified elsewhere without behavioral disturbance F02.80 Active 068298764 Problem Type 2 diabetes mellitus with other circulatory complication, without long-term current use of insulin E11.59 Active 29473458 Problem Panlobular emphysema J43.1 Active 4364476 Problem Enlarged prostate with lower urinary tract symptoms N40.1 Active 440440833000873 Problem Benign prostatic hyperplasia with lower urinary tract symptoms N40.1 Active 687768627 Problem Polydipsia R63.1 Active 56746447 Problem Depression F32.9 Active 32156738 Problem Type 2 diabetes mellitus with hyperglycemia E11.65 Active 706701233382451 Problem HTN (hypertension) I10 Active 15592854 Problem Bipolar disorder, unspecified F31.9 Active 61174161 Problem Acute left-sided low back pain with left-sided sciatica M54.42 Active 619667447 Problem Low back pain, unspecified back pain laterality, with sciatica presence unspecified M54.5 Active 354322480 Problem 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 Active 96392249 Problem Type 2 diabetes mellitus with diabetic polyneuropathy E11.42 Active 699860686 Problem GERD with esophagitis K21.0 Active 739746398 Problem Status post partial amputation of left foot Z89.432 Active 342041281 Problem Hammer toe, unspecified laterality M20.40 Active 048674661 Problem Tinea pedis, unspecified laterality B35.3 Active 8695565 Problem Other Alzheimers disease G30.8 Active 85495790 Problem Peripheral vascular disease due to secondary diabetes E13.51 Active 7559671 Problem Severe pain R52 Active 92010879 ALLERGIES No Information ENCOUNTERS Encounter Location Date Diagnosis [facility] [address] [address] Apr, [facility] [address] [place] [address] Mar, [facility] [address] [place] [address] Feb, Acute left-sided low back pain with left-sided sciatica M54.42 [facility] [address] [place] [address] Feb, [facility] [address] [id number] Jan, Acute left-sided low back pain with left-sided sciatica M54.42 [facility] [address] [place] [address] Jan, Arthralgia, unspecified joint M25.50 [facility] [address] [id number] Jan, Left hip pain M25.552 ; Acute pain of left knee M25.562 and Tobacco abuse Z72.0 [facility] [address] [place] [address] Jan, [facility] [address] [id number] Jan, Tobacco abuse Z72.0 [facility] [address] [place] [address] Dec, [facility] [address] [place] [address] Dec, Arthralgia, unspecified joint M25.50 [facility] [address] [place] [address] Dec, [facility] [address] [place] [address] Dec, [facility] [address] [place] [id number] Dec, Dementia in other diseases classified elsewhere without behavioral disturbance F02.80 ; Peripheral vascular disease due to secondary diabetes E13.51 and 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 [place] [address] [place] [address] Nov, Arthralgia, unspecified joint M25.50 [place] [id number] [place] [address] 9936 Nov, [place] [id number] [place] [address] October, Arthralgia, unspecified joint M25.[address] [id number] October, Arthralgia, unspecified joint M25.[address] [id number] Sep, Weakness R53.1 ; Panlobular emphysema J43.1 ; Bipolar disorder, unspecified F31.9 ; Benign prostatic hyperplasia with lower urinary tract symptoms N40.1 and Frequency of micturition R35.0 [place] [id number] [place] [address]- 4916 Sep, [place] [id number] [place] [address]- [address] Aug, [address] [id number] Jul, Dementia in other diseases classified elsewhere without behavioral disturbance F02.80 [facility] [id number] [place] [id number] Jul, [place] [id number] [place] [address]- 7696 Jun, Bipolar disorder, unspecified F31.[address] [id number] Jun, Pneumonia due to infectious organism, unspecified laterality, unspecified part of lung J18.9 [place] [address] [address] Jun, [place] [id number] [place] [address] Jun, [facility] [place] [address] [id number] Apr, Type 2 diabetes mellitus with other circulatory complication, without long -term current use of insulin E11.59 [place] [address] [address] Apr, [place] [id number] [place] [id number] Feb, [place] [address] [id number] [place] [id number] Feb, [facility] [address] [id number] Feb, Sore throat J02.9 and Polyuria R35.8 [place] [id number] [place] [address] Jan, Bronchitis J40 [facility] [address] [id number] Dec, Cervicalgia M54.2 [place] [address] [address] October, Acute left-sided low back pain with left-sided sciatica M54.42 and Cervicalgia M54.2 [place] [address] [id number] [address] Sep, Acute left-sided low back pain with left-sided sciatica M54.42 [place] [id number] [place] [id number] Sep, Cervicalgia M54.[address] [facility] [address] [id number] Sep, Cervicalgia M54.2 and Acute left-sided low back pain with left-sided sciatica M54.42 [facility] [id number] [place] [address] Sep, [facility] [id number] Jul, Type 2 diabetes mellitus with hyperglycemia E11.65 ; Bipolar disorder F31.9 ; 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 ; Peripheral vascular disease due to secondary diabetes E13.51 and Status post partial amputation of left foot Z89.432 [place] [address] [place] [address]- 8929 Mar, [place] [id number] [place] [address]- 1362 Mar, [place] [id number] [place] [address] 9017 Mar, [address] [id number] Mar, Dementia in other diseases classified elsewhere without behavioral disturbance F02.80 ; Polydipsia R63.1 ; HTN (hypertension) I10 ; Hypo- osmolality and hyponatremia E87.1 ; Type 2 diabetes mellitus with other circulatory complication, without long-term current use of insulin E11.59 ; Peripheral vascular disease due to secondary diabetes E13.51 and Bipolar disorder, unspecified F31.9 [place] [address] [address] Feb, [place] [address] [address] Jan, [place] [address] [address] Jan, [address] [id number] Jan, Pain of left hip joint M25.552 ; Tobacco abuse Z72.0 and Polydipsia R63.1 [address] [place] [address]- 9708 Jan, [place] [address] [place] [id number] [address] Jan, [facility] [address] [facility] [id number] [place] [address] Dec, [facility] [address] [facility] [id number] [place] [address] Dec, [facility] [address] [id number] Dec, Status post partial amputation of left foot Z89.432 and Peripheral vascular disease due to secondary diabetes E13.51 [facility] [address] [facility] [id number] [place] [address] 7[address] Dec, [facility] [address] [id number] [place] [address] 3086 Dec, [facility] [address] [place] [address]- 6968 Dec, [facility] [address] [place] [address]- 61[address] Nov, [facility] [address] [place] [id number] [address] 80[address] Nov, [facility] [address] [id number] Nov, Severe pain R52 and Status post closed fracture of hip Z87.81 [facility] [address] [place] [address]- 49[address] Nov, [facility] [address] [facility] [id number] [place] [address]- 5448 Nov, [facility] [address] [id number] [place] [address]- 0111 October, Severe pain R52 [facility] [address] 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 and Peripheral vascular disease due to secondary diabetes E13.51 [place] [id number] [place] [address] 71293- 7716 Jun, [place] [id number] [place] [address] 01287- 0248 Jun, [facility] [address] [address] Jun, 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 and Status post partial amputation of left foot Z89.432 [facility] [address] [id number] May, Peripheral vascular disease due to secondary diabetes E13.51 ; Status post partial amputation of left foot Z89.432 and 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 [place] [address] [place] [address]05- 5029 Mar, Gangrene associated with type II diabetes mellitus E11.52 [place] [address] [place] [address]27- 9634 Mar, [facility] [address] [id number] Mar, [place] [id number] [place] [address]859- 6934 Feb, Nicotine abuse 305.1 [place] [address] [address]- 1315 Feb, [place] [address] [address] [id number] [place] [address] 73754- 2286 Feb, [facility] [address] [address]- 6463 Jan, [facility] [address] [place] [address]- 9276 Jan, Diabetes 250.00 ; Peripheral vascular disease 443.9 and Bipolar affective disorder 296.80 [facility] [address] [place] [address]- 8476 Dec, [facility] [address] [place] [address]- 9388 Dec, [facility] [address] [place] [address]- 9896 Dec, [facility] [address] [place] [address]- 3538 Dec, [facility] [address] [place] [address]- 5420 Dec, Diabetes mellitus without mention of complication, type II or unspecified type, uncontrolled 250.02 and Vertigo 780.4 [facility] [address] [address]- 6056 Nov, [facility] [address] [id number] [address]- 9626 October, Follow-up examination V67.9 ; Diabetes mellitus without mention of complication, type II or unspecified type, uncontrolled 250.02 and Upper respiratory infection 465.9 [facility] [address] [place] [address]- 6976 October, [facility] [address] [place] [address]- 2866 Sep, [facility] [address] [place] [address] [id number] [address]- 4476 Sep, [facility] [id number] [place] [address]- 9126 Aug, 2014 [facility] [place] [facility] [address] [id number] [place] [address]- 6190 Aug, [facility] [place] [facility] [address] [id number] [place] [address]- 3435 Aug, 2014 [facility] [place] [facility] [address] [id number] [place] [address]- 4979 Jul, 2014 [facility] [place] [facility] [address] [id number] [place] [address]- 6149 Jul, 2014 [facility] [place] [facility] [address] [id number] [place] [address]- 7933 Jul, [facility] [place] [facility] [address] [id number] [place] [address]- 1880 Jul, [facility] [place] [facility] [address] [id number] [place] [address]- 2208 May, [facility] [place] [facility] [address] [id number] [place] [address]- 4098 May, [facility] [place] [facility] [address] [id number] [place] [address]- 2547 May, [facility] [place] [facility] [address] [id number] [place] [address]- 9785 May, [facility] [place] [facility] [address] [id number] [place] [address]- 8288 Apr, [facility] [place] [facility] [address] [id number] [place] [address]- 1691 Apr, [facility] [place] [facility] [address] [id number] [place] [address]- 2066 Mar, [facility] [place] [facility] [address] [id number] [place] [address]- 4414 Mar, [facility] [place] [facility] [address] [id number] [place] [address] Mar, [facility] [place] [facility] [address] [id number] [place] [address]- 0802 07 Mar, 2013 [facility] [place] [facility] [address] [id number] [place] [address] 2546 29 Sep, 2013 [facility] [place] [facility] [address] [id number] [place] [address] 2546 29 Sep, 2013 [facility] [place] [facility] [address] [id number] [place] [address]- 2136 23 Sep, 2013 [facility] [place] [facility] [address] [id number] [place] [address]- 2548 23 Sep, 2013 [facility] [place] [facility] [address] [id number] [place] [address]- 5684 22 Sep, 2013 [facility] [place] [facility] [address] [id number] [place] [address]- 2548 22 Sep, 2013 [facility] [place] [facility] [address] [id number] [place] [address]- 2545 16 Sep, 2013 [facility] [place] [facility] [address] [id number] [place] [address]- 2547 16 Sep, 2013 [facility] [place] [facility] [address] [id number] [place] [address]- 2545 16 Sep, 2013 [facility] [place] [facility] [address] [id number] [place] [address]- 2547 16 Sep, 2013 [facility] [place] [facility] [address] [id number] [place] [address] 2540 16 Sep, 2013 [facility] [place] [facility] [address] [id number] [place] [address]- 2540 16 Sep, 2013 [facility] [place] [facility] [address] [id number] [place] [address] 2546 11 Sep, 2013 [facility] [place] [facility] [address] [id number] [place] [address]- 2546 11 Sep, 2013 [facility] [place] [facility] [address] [id number] [place] [address]31 10 Sep, 2013 [facility] [place] [facility] [address] [id number] [place] [address]- 1303 10 Feb, 2013 [facility] [place] [facility] [address] [id number] [place] [address]- 7662 Feb, 2013 [facility] [place] [facility] [address] [id number] [place] [address]- 6929 Feb, 2013 [facility] [place] [facility] [address] [id number] [place] [address]- 1684 Feb, 2013 [facility] [place] [facility] [address] [id number] [place] [address]- 7891 Feb, [facility] [place] [facility] [address] [id number] [place] [address]- 4845 Feb, [facility] [place] [facility] [address] [id number] [place] [address]- 3265 Jan, [facility] [place] [facility] [address] [id number] [place] [address]- 0751 Jan, [facility] [place] [facility] [address] [id number] [place] [address]- 2132 Jan, [facility] [place] [facility] [address] [id number] [place] [address]- 9472 Jan, [facility] [place] [facility] [address] [id number] [place] [address]- 3444 Nov, [facility] [place] [facility] [address] [id number] [place] [address]- 4079 Nov, [facility] [place] [facility] [address] [id number] [place] [address]- 0813 October, [facility] [place] [facility] [address] [id number] [place] [address]- 4066 October, [facility] [place] [facility] [address] [id number] [place] [address]- 6355 October, [facility] [place] [facility] [address] [id number] [place] [address]- 6820 October, [facility] [address] [id number] [place] [address]- 9636 October, [facility] [place] [facility] [address] [id number] [place] [address]- 3538 October, [facility] [place] [facility] [address] [id number] [place] [address]- 1417 October, [facility] [place] [facility] [address] [id number] [place] [address]- 6539 October, [facility] [place] [facility] [address] [id number] [place] [address]- 5892 Sep, [facility] [place] [facility] [address] [id number] [place] [address]- 8410 Sep, [facility] [address] [facility] [id number] [place] [address]- 1861 Sep, [facility] [place] [facility] [address] [id number] [place] [address]- 8988 Sep, [facility] [address] [id number] [place] [address]- 7662 Jul, [facility] [place] [facility] [address] [facility] [id number] [place] [address]- 6905 Jul, [facility] [place] [facility] [address] [facility] [id number] [place] [address]- 5157 May, [facility] [place] [facility] [address] [id number] [place] [address]- 3828 May, [facility] [place] [facility] [address] [id number] [place] [address]- 7132 Apr, [facility] [place] [facility] [address] [id number] [place] [address]- 2265 Apr, [facility] [place] [facility] [address] [facility] [id number] [place] [address]- 1004 Apr, [facility] [place] [facility] [address] [id number] [place] [address]- 7675 Apr, [facility] [place] [facility] [address] [id number] [place] [address]- 1855 Mar, [facility] [place] [facility] [address] [id number] [place] [address]- 2546 Mar, [facility] [place] [facility] [address] [id number] [place] [address] 254 Mar, [facility] [place] [facility] [address] [id number] [place] [address] 2547 Mar, [facility] [place] [facility] [address] [id number] [place] [address]- 2401 Feb, [facility] [place] [facility] [address] [id number] [place] [address]- 3807 Jan, [facility] [place] [facility] [address] [id number] [place] [address]- 1395 Jan, [facility] [place] [facility] [address] [id number] [place] [address]- 8017 Jan, [facility] [place] [facility] [address] [id number] [place] [address]- 3900 Dec, [facility] [place] [facility] [address] [id number] [place] [address]- 4275 October, [facility] [place] [facility] [address] [id number] [place] [address]- 5806 October, [facility] [place] [facility] [address] [id number] [place] [address]- 1828 October, [facility] [place] [facility] [address] [id number] [place] [address]- 2546 October, [facility] [place] [facility] [address] [id number] [place] [address]- 2546 October, [facility] [place] [facility] [id number] [address]- 5418 October, [facility] [address] [id number] [place] [address]- 2752 Sep, [facility] [place] [facility] [address] [id number] [place] [address]- 9307 Sep, [facility] [address] [facility] [id number] [place] [address]- 7572 Jul, [facility] [place] [facility] [address] [id number] [place] [address]- 5014 Jun, [facility] [place] [facility] [address] [id number] [place] 8388 Jun, [facility] [place] [facility] [address] [id number] [place] 1312 Jun, [facility] [address] [id number] [place] [address]- 0600 May, [facility] [place] [facility] [address] [id number] [place] [address]- 0077 May, [facility] [address] [id number] [place] [address]- 4831 May, [facility] [place] [facility] [address] [id number] [place] [address]- 1084 May, [facility] [place] [facility] [address] [id number] [place] [address]- 4162 May, [facility] [place] [facility] [address] [id number] [place] [address]- 1945 May, [facility] [place] [facility] [address] [id number] [place] 3635 Mar, [facility] [place] [facility] [address] [id number] [place] 5616 Mar, [facility] [place] [facility] [address] [id number] [place] 2087 Mar, [facility] [place] [facility] [address] [place] [address]- 7024 Mar, [facility] [address] [facility] [id number] [place] [address] Feb, [facility] [address] [facility] [id number] [place] [address] Dec, [facility] [id number] [place] [address] Dec, [facility] [address] [facility] [id number] [place] [address] Dec, [facility] [id number] [place] [address] Nov, [facility] [address] [id number] [place] [address] Nov, [facility] [id number] [place] [address] Nov, [facility] [id number] [place] [address] Nov, [facility] [id number] [place] [address] Aug, [facility] [id number] [place] [address] Jun, [facility] [id number] [place] [address] May, [facility] [address] [id number] [place] [address] Apr, [facility] [id number] [place] [address] Mar, [facility] [id number] [place] [address] May, IMMUNIZATIONS No Known Immunizations SOCIAL HISTORY Never Assessed REASON FOR VISIT medication reconciliation--order summary [place] PLAN OF CARE VITAL SIGNS MEDICATIONS Medication Instructions Dosage Frequency Start Date End Date Duration Status Stress B Complex/Zinc by oral route Once a day 1 tablet 24h Active Metformin HCl 1000 MG TAKE 1 TABLET BY MOUTH TWICE DAILY 30 Active Exelon 1.5 MG Orally Twice a day 1 capsule with food 12h 24 Oct, 2015 30 day(s) Active Tums 500 mg Orally every 12 hrs 1 tablet as needed 12h Active Zinc Oxide 10 % as directed Active Clopidogrel Bisulfate 75 MG TAKE 1 TABLET BY MOUTH ONCE DAILY 30 Active Simvastatin 20 mg Orally Once a day 1 tablet in the evening 24h 30 days Active Latuda 20 MG TAKE 1 TABLET BY MOUTH EVERY DAY 30 Active Tramadol HCl 50 mg Orally 4 times a day 1 tablet as needed 6h Mar, Apr, 28 days Active Rivastigmine Tartrate 1.5 MG TAKE 1 CAPSULE BY MOUTH TWICE DAILY 30 Not-Taking Carlota-Tussin 100 MG/5ML Orally every 6 hrs 15 ml as needed 6h Active Vitamin D3 2000 UNIT Orally Once a day 1 capsule 24h Active Folic Acid 1 MG Orally Once a day 1 tablet 24h Active Ferrous Sulfate 325 (65 Fe) MG Orally Once a day 1 tablet 24h Active Pioglitazone HCl 45 MG TAKE 1 TABLET BY MOUTH EVERY DAY 30 Not- Taking Tamsulosin HCl 0.4 MG TAKE 1 CAPSULE BY MOUTH ONCE DAILY 30 Active Actos 45 MG Orally Once a day 1 tablet 24h Apr, Active Lactobacillus Orally Once a day 1 tablet 24h Active Aspirin Adult Low Dose 81 MG Orally Once a day 1 tablet 24h Active Calmoseptine 0.44-20.6 % Externally to buttocks as needed Not- Taking Venlafaxine HCl ER 150 MG TAKE 1 CAPSULE BY MOUTH ONCE DAILY 30 Active Cough Drops 5.8 MG Mouth/Throat every 2-4 hrs 1 lozenge as needed Active Albuterol Sulfate 1.25 MG/3ML Inhalation every 12 hours 3 ml as needed 12h Active Ibuprofen 200 mg Orally Three times a day with the Tramado 1 capsule Jan, Apr, 30 days Active MiraLax 17 gm/dose Orally once daily as needed 17 grams mixed in 8 oz of water or juice Active Gabapentin 300 MG TAKE 1 CAPSULE BY MOUTH THREE TIMES DAILY 30 Active RESULTS No Results PROCEDURES No Known [...]
--- OUTSIDE RECORDS SUMMARY | 2018-05-13 07:30 | XMS REPORT ---
Author Author PRECIOUS BOTELLO [facility] Address [address] [place] [address] Care Team Providers Care Rn Liaison Name Role Phone PRECIOUS BOTELLO Unavailable PROBLEMS Type Condition ICD9-CM Code QON19-FU Code Onset Dates Condition Status SNOMED Code Problem Status post closed fracture of hip Z87.81 Active 027108728 Problem Dementia in other diseases classified elsewhere without behavioral disturbance F02.80 Active 539857740 Problem Type 2 diabetes mellitus with other circulatory complication, without long-term current use of insulin E11.59 Active 38692839 Problem Panlobular emphysema J43.1 Active 5537039 Problem Enlarged prostate with lower urinary tract symptoms N40.1 Active [id number] Problem Benign prostatic hyperplasia with lower urinary tract symptoms N40.1 Active 727053410 Problem Polydipsia R63.1 Active 05879881 Problem Depression F32.9 Active 70684160 Problem Type 2 diabetes mellitus with hyperglycemia E11.65 Active 994399165446360 Problem HTN (hypertension) I10 Active 34091061 Problem Bipolar disorder, unspecified F31.9 Active 09068981 Problem Acute left-sided low back pain with left-sided sciatica M54.42 Active 904717978 Problem Low back pain, unspecified back pain laterality, with sciatica presence unspecified M54.5 Active 452736169 Problem 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 Active 35312469 Problem Type 2 diabetes mellitus with diabetic polyneuropathy E11.42 Active 320210073 Problem GERD with esophagitis K21.0 Active 003179032 Problem Status post partial amputation of left foot Z89.432 Active 173037684 Problem Hammer toe, unspecified laterality M20.40 Active 137505333 Problem Tinea pedis, unspecified laterality B35.3 Active 5853763 Problem Other Alzheimers disease G30.8 Active 75137788 Problem Peripheral vascular disease due to secondary diabetes E13.51 Active 6119721 Problem Severe pain R52 Active 41202905 ALLERGIES No Information ENCOUNTERS Encounter Location Date Diagnosis [facility] [address], [place] [address] 14 Feb, 2018 Acute left-sided low back pain with left-sided sciatica M54.42 [place] [id number] [place] [address] Feb, [facility] [address] [id number] Jan, Acute left-sided low back pain with left-sided sciatica M54.42 [place] [address] [id number] [place] [address] 61991- 2139 Jan, Arthralgia, unspecified joint M25.[address] [id number] Jan, Left hip pain M25.552 ; Acute pain of left knee M25.562 and Tobacco abuse Z72.0 [place] [id number] [place] [address] 67969- 2355 Jan, [facility] [address] [id number] Jan, Tobacco abuse Z72.0 [place] [id number] [place] [address] 71670- 4304 Dec, [place] [id number] [place] [address] 09932- 6938 Dec, Arthralgia, unspecified joint M25.50 [place] [address], [place] [address] 87[address] Dec, [place] [id number] [place] [address] 73004- 3203 Dec, [facility] [id number] Dec, Dementia in other diseases classified elsewhere without behavioral disturbance F02.80 ; Peripheral vascular disease due to secondary diabetes E13.51 and 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 [place] [address], [place] [address] Nov, Arthralgia, unspecified joint M25.50 [facility] [address], [place] [address] Nov, [facility] [address], [place] [address] October, Arthralgia, unspecified joint M25.50 [facility] [place] [address] [place] [id number] October, Arthralgia, unspecified joint M25.50 [facility] [place] [address] [place] [id number] Sep, Weakness R53.1 ; Panlobular emphysema J43.1 ; Bipolar disorder, unspecified F31.9 ; Benign prostatic hyperplasia with lower urinary tract symptoms N40.1 and Frequency of micturition R35.0 [place] [id number] [place] [address] 80372- 4646 Sep, [place] [id number] [place] [address] 96368- 3407 Aug, [facility] [address] [id number] Jul, Dementia in other diseases classified elsewhere without behavioral disturbance F02.80 [place] [id number] [id number] Jul, [place] [id number] [place] [address] 95901- 8352 Jun, Bipolar disorder, unspecified F31.[address] [facility] [address] [id number] Jun, Pneumonia due to infectious organism, unspecified laterality, unspecified part of lung J18.9 [facility] [address], [place] [address] 1106 Jun, [facility] [id number] [place] [id number] Jun, [facility] [place] [address] [place] [id number] Apr, Type 2 diabetes mellitus with other circulatory complication, without long -term current use of insulin E11.59 [facility] [id number], [place] [address] 25[address] Apr, [place] [address] [id number] [address] Feb, [place] [address] [place] [id number] [address] Feb, [facility] [place] [address] [place] [id number] Feb, Sore throat J02.9 and Polyuria R35.8 [place] [address] [id number] [id number] Jan, Bronchitis J40 [facility] [address] [place] [id number] Dec, Cervicalgia M54.2 [place] [address], [place] [address] October, Acute left-sided low back pain with left-sided sciatica M54.42 and Cervicalgia M54.2 [place] [id number], [place] [address] 7906 Sep, Acute left-sided low back pain with left-sided sciatica M54.42 [place] [id number] [address] Sep, Cervicalgia M54.2 [facility] [place] [address] [place] [id number] Sep, Cervicalgia M54.2 and Acute left-sided low back pain with left-sided sciatica M54.42 [place] [id number] [address] Sep, [facility] [place] [address] [place] [id number] Jul, Type 2 diabetes mellitus with hyperglycemia E11.65 ; Bipolar disorder F31.9 ; 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 ; Peripheral vascular disease due to secondary diabetes E13.51 and Status post partial amputation of left foot Z89.432 [place] [id number] [place] [address] 84340- 3156 Mar, [place] [address] [id number] [place] [address]- 1975 Mar, [place] [id number] [place] [address] 38174- 5531 Mar, [facility] [address] [place] [id number] Mar, Dementia in other diseases classified elsewhere without behavioral disturbance F02.80 ; Polydipsia R63.1 ; HTN (hypertension) I10 ; Hypo- osmolality and hyponatremia E87.1 ; Type 2 diabetes mellitus with other circulatory complication, without long-term current use of insulin E11.59 ; Peripheral vascular disease due to secondary diabetes E13.51 and Bipolar disorder, unspecified F31.9 [place] [id number] [place] [address] 85966- 2015 Feb, [place] [address] [id number] [place] [address] 79799- 9922 Jan, [place] [address] [id number] [place] [address] 56906- 3646 Jan, [facility] [address] [place] [id number] Jan, Pain of left hip joint M25.552 ; Tobacco abuse Z72.0 and Polydipsia R63.1 [place] [id number] [place] [address] 01316- 2799 Jan, [place] [address] [id number] [place] [address] 20699- 4396 Jan, [place] [id number] [place] [address] 14944- 0065 Dec, [place] [address], [place] [address]- 3900 Dec, [facility] [place] [address] [place] [id number] Dec, Status post partial amputation of left foot Z89.432 and Peripheral vascular disease due to secondary diabetes E13.51 [facility] [address], [place] [address]- 0981 Dec, [facility] [address] [facility] [id number] [address]- 2184 Dec, [facility] [id number], [place] [address]- 9938 Dec, [facility] [address], [place] [address]- 3372 Nov, [facility] [address], [place] [address]- 9056 Nov, [facility] [place] [address] [place] [address] Nov, Severe pain R52 and Status post closed fracture of hip Z87.81 [facility] [address], [place] [address] 9970 Nov, [facility] [address], [place] [address]- 7524 Nov, [facility] [address], [place] [address]- 2467 October, Severe pain R52 [facility] [address], [place] [address]- 4319 October, [facility] [address], [place] [address]- 1016 October, Other Alzheimers disease G30.8 and Dementia in other diseases classified elsewhere without behavioral disturbance F02.80 [facility] [address], [place] [address]- 7295 Sep, [facility] [address], [place] [address]- 2558 Aug, [facility] [place] [address] [place] [address] Aug, Status post partial amputation of left foot Z89.432 ; 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 and Peripheral vascular disease due to secondary diabetes E13.51 [facility] [address], [place] [address]- 9395 Jun, [facility] [address], [place] [address]- 4627 Jun, [facility] [place] [address] [place] [address] Jun, 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 and Status post partial amputation of left foot Z89.432 [facility] [place] [address] [place] [address] May, Peripheral vascular disease due to secondary diabetes E13.51 ; Status post partial amputation of left foot Z89.432 and 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 [place] [address], [place] [address]- 7114 Mar, Gangrene associated with type II diabetes mellitus E11.52 [place] [id number] [place] [address] 04863- 3670 Mar, [facility] [place] [address] [id number] Mar, [place] [address], [place] [address]- 3512 Feb, Nicotine abuse 305.1 [facility] [address], [place] [address]- 7946 Feb, [facility] [address], [place] [address]- 3311 Feb, [facility] [address], [place] [address]- 0245 Jan, [place] [address], [place] [address]- 9926 Jan, Diabetes 250.00 ; Peripheral vascular disease 443.9 and Bipolar affective disorder 296.80 [facility] [address], [place] [address]- 3346 Dec, [facility] [address], [place] [address]- 8996 Dec, [facility] [id number] [address]- 1456 Dec, [facility] [address], [place] [address]- 0336 Dec, [facility] [address], [place] [address]- 6056 Dec, Diabetes mellitus without mention of complication, type II or unspecified type, uncontrolled 250.02 and Vertigo 780.4 [facility] [address], [place] [address]- 3416 Nov, [facility] [address], [place] [address]- 6446 October, Follow-up examination V67.9 ; Diabetes mellitus without mention of complication, type II or unspecified type, uncontrolled 250.02 and Upper respiratory infection 465.9 [facility] [address], [place] [address]- 7206 October, [facility] [address] [id number], [place] [address]- 0586 Sep, [facility] [address], [place] [address]- 3006 Sep, [facility] [address], [place] [address]- 9176 Aug, [facility] [id number], [place] [address]- 2546 Aug, [facility] [id number], [place] [address]- 2100 Aug, [facility] [place] [facility] [address] [id number] [place] [address]- 0625 Jul, 2014 [facility] [place] [facility] [address] [id number] [place] [address]- 4786 Jul, 2014 [facility] [place] [facility] [address] [id number] [place] [address]- 1247 Jul, 2014 [facility] [place] [facility] [address] [id number] [place] [address]- 8920 Jul, 2014 [facility] [place] [facility] [address] [id number] [place] [address]- 7050 May, [facility] [place] [facility] [address] [id number] [place] [address]- 1048 May, [facility] [place] [facility] [address] [id number] [place] [address]- 9280 May, [facility] [place] [facility] [address] [id number] [place] [address]- 4015 May, [facility] [place] [facility] [address] [id number] [place] [address]- 0907 Apr, [facility] [place] [facility] [address] [id number] [place] [address]- 5573 Apr, [facility] [place] [facility] [address] [id number] [place] [address]- 6061 Mar, [facility] [place] [facility] [address] [id number], [place] [address]- 7294 Mar, [facility] [place] [facility] [address] [id number] [place] [address]- 9797 Mar, [facility] [place] [facility] [address] [id number] [place] [address]- 2816 Mar, [facility] [place] [facility] [address] [id number] [place] [address]- 9467 29 Feb, 2014 [facility] [place] [facility] [address] [id number] [place] [address]- 2542 29 Sep, 2013 [facility] [place] [facility] [address] [id number] [place] [address] 2546 23 Sep, 2013 [facility] [place] [facility] [address] [id number] [place] [address] 2546 23 Sep, 2013 [facility] [place] [facility] [address] [id number] [place] [address] 2543 22 Sep, 2013 [facility] [place] [facility] [address] [id number] [place] [address]- 2542 22 Sep, 2013 [facility] [place] [facility] [address] [id number] [place] [address]- 4208 16 Sep, 2013 [facility] [place] [facility] [address] [id number] [place] [address]- 2547 16 Sep, 2013 [facility] [place] [facility] [address] [id number] [place] [address]- 2547 16 Sep, 2013 [facility] [place] [facility] [address] [id number] [place] [address]- 2545 16 Sep, 2013 [facility] [place] [facility] [address] [id number] [place] [address]- 2547 16 Sep, 2013 [facility] [place] [facility] [address] [id number] [place] [address]- 2544 16 Sep, 2013 [facility] [place] [facility] [address] [id number] [place] [address] 2544 11 Sep, 2013 [facility] [place] [facility] [address] [id number] [place] [address]- 2549 11 Sep, 2013 [facility] [place] [facility] [address] [id number] [place] [address] 2546 10 Sep, 2013 [facility] [place] [facility] [address] [id number] [place] [address]- 2546 10 Sep, 2013 [facility] [place] [facility] [address] [id number] [place] [address] Feb, [facility] [place] [facility] [address] [id number] [place] [address]- 0955 Feb, 2013 [facility] [place] [facility] [address] [id number] [place] [address]- 0125 Feb, [facility] [place] [facility] [address] [id number] [place] [address]- 2604 Feb, [facility] [place] [facility] [address] [id number] [place] [address]- 5829 Feb, [facility] [place] [facility] [address] [id number] [place] [address]- 8594 Jan, [facility] [place] [facility] [address] [id number] [place] [address]- 7393 Jan, [facility] [place] [facility] [address] [id number] [place] [address]- 7847 Jan, [facility] [place] [facility] [address] [id number] [place] [address]- 7937 Jan, [facility] [place] [facility] [address] [id number] [place] [address]- 9210 Nov, [facility] [place] [facility] [address] [id number] [place] [address]- 8409 Nov, [facility] [place] [facility] [address] [id number] [place] [address]- 3661 October, [facility] [place] [facility] [address] [id number] [place] [address]- 2752 October, [facility] [place] [facility] [address] [id number] [place] [address]- 6187 October, [facility] [place] [facility] [address] [id number] [place] [address]- 3067 October, [facility] [place] [facility] [address] [id number] [place] [address]- 4972 October, [facility] [place] [facility] [address] [id number], [place] [address]- 1363 October, [facility] [address] [id number] [place] [address]- 9695 October, [facility] [place] [facility] [address] [facility] [id number] [place] [address]- 6094 October, [facility] [place] [facility] [address] [facility] [id number] [place] [address]- 8862 Sep, [facility] [place] [facility] [address] [facility] [id number] [place] [address]- 5700 Sep, [facility] [place] [facility] [address] [facility] [id number] [place] [address]- 7891 Sep, [facility] [place] [facility] [address] [facility] [id number] [place] [address]- 8090 Sep, [facility] [address] [place] [address]- 3393 Jul, [facility] [place] [facility] [address] [facility] [id number] [place] [address]- 9101 Jul, [facility] [place] [facility] [id number] [address]- 7671 May, [facility] [place] [facility] [address] [facility] [id number] [place] [address]- 5813 May, [facility] [place] [facility] [id number] [place] [address]- 8389 Apr, [facility] [place] [facility] [address] [facility] [id number] [place] [address]- 5760 Apr, [facility] [place] [facility] [address] [facility] [id number] [place] [address]- 4626 Apr, [facility] [place] [facility] [address] [facility] [id number] [place] [address]- 6739 Apr, [facility] [place] [facility] [id number], [place] [address]- 3811 Mar, [facility] [place] [facility] [address] [id number] [place] [address]- 7050 Mar, [facility] [address] [id number] [place] [address]- 4467 Mar, [facility] [place] [facility] [address] [id number] [place] [address]- 2546 Mar, [facility] [address] [id number] [place] [address]- 5741 Feb, [facility] [address] [id number] [place] [address]- 9319 Jan, [facility] [address] [id number] [place] [address]- 0725 Jan, [facility] [address] [id number] [place] [address]- 8102 Jan, [facility] [address] [id number] [place] [address]- 8646 Dec, [facility] [address] [id number] [place] [address]- 3518 October, [facility] [address] [id number] [place] [address]- 5422 October, [facility] [address] [id number] [place] [address]- 6293 October, [facility] [address] [id number] [place] [address]- 4217 October, [facility] [address] [id number] [place] [address]- 2072 October, [facility] [place] [facility] [address] [id number] [place] [address]- 0896 October, [facility] [place] [facility] [address] [id number] [place] [address]- 9787 Sep, [facility] [place] [facility] [address] [id number] [place] [address]- 0441 Sep, [facility] [place] [facility] [address] [id number] [place] [address]- 4419 Jul, [facility] [place] [facility] [address] [id number] [place] [address]- 0107 Jun, [facility] [place] [facility] [address] [id number] [place] [address]65 Jun, [facility] [place] [facility] [address] [id number] [place] [address]- 0938 16 Jun, 2012 [facility] [place] [facility] [address] [id number] [place] [address]- 7308 May, [facility] [place] [facility] [address] [id number] [place] [address]- 9582 May, [facility] [place] [facility] [address] [id number] [place] [address] May, [facility] [place] [facility] [address] [id number] [place] [address] May, [facility] [place] [facility] [address] [id number] [place] [address] May, [facility] [place] [facility] [address] [id number] [place] [address] May, [facility] [place] [facility] [address] [id number], [place] [address] Mar, [facility] [place] [facility] [address] [id number], [place] [address] Mar, [facility] [place] [facility] [address] [id number] [place] [address] Mar, [facility] [place] [facility] [address] [id number] [place] [address] Mar, [facility] [place] [facility] [address] [id number] [place] [address] Feb, [facility] [place] [facility] [address] [id number], [place] [address] Dec, [facility] [id number], [place] [address] Dec, [facility] [id number], [place] [address] Dec, [facility] [id number], [place] [address] Nov, [facility] [id number], [place] [address] Nov, [facility] [id number], [place] [address] Nov, [facility] [id number] [address] Nov, [facility] [id number], [place] [address] Aug, [facility] [id number], [place] [address] Jun, [facility] [id number], [place] [address] May, [facility] [id number], [place] [address] Apr, [facility] [address] [id number], [place] [address] Mar, [facility] [address] [id number], [place] [address] May, IMMUNIZATIONS No Known Immunizations SOCIAL HISTORY Never Assessed REASON FOR VISIT med list reconcilliation PLAN OF CARE VITAL SIGNS MEDICATIONS Medication Instructions Dosage Frequency Start Date End Date Duration Status Ferrous Sulfate 325 (65 Fe) MG Orally Once a day 1 tablet 24h Active Tamsulosin HCl 0.4 MG TAKE 1 CAPSULE BY MOUTH ONCE DAILY 30 Active Folic Acid 1 MG Orally Once a day 1 tablet 24h Active Latuda 20 MG TAKE 1 TABLET BY MOUTH EVERY DAY 30 Active Tums 500 mg Orally every 12 hrs 1 tablet as needed 12h Active Albuterol Sulfate 1.25 MG/3ML Inhalation every 12 hours 3 ml as needed 12h Active Vitamin D3 2000 UNIT Orally Once a day 1 capsule 24h Active Gabapentin 300 MG TAKE 1 CAPSULE BY MOUTH THREE TIMES DAILY 30 Active [place]-Tussin 100 MG/5ML Orally every 6 hrs 15 ml as needed 6h Active Clopidogrel Bisulfate 75 MG Orally Once a day 1 tablet 24h Active Cough Drops 5.8 MG Mouth/Throat every 2-4 hrs 1 lozenge as needed Active Aspirin Adult Low Dose 81 MG Orally Once a day 1 tablet 24h Active Lactobacillus Orally Once a day 1 tablet 24h Active Stress B Complex/Zinc by oral route Once a day 1 tablet 24h Active Tramadol HCl 50 mg Orally 3 times a day with the Ibuprofen 1 tablet October, Active Actos 45 MG Orally Once a day 1 tablet 24h Apr, Active Exelon 1.5 MG Orally Twice a day 1 capsule with food 12h October, 30 day(s) Active Ibuprofen 200 mg Orally Three times a day with the Tramado 1 capsule Jan, Apr, 30 days Active MiraLax 17 gm/dose Orally once daily as needed 17 grams mixed in 8 oz of water or juice Active Simvastatin 20 mg Orally Once a day 1 tablet in the evening 24h 30 days Active Venlafaxine HCl ER 150 MG TAKE 1 CAPSULE BY MOUTH ONCE DAILY 30 Active Metformin HCl 1000 MG TAKE 1 TABLET BY MOUTH TWICE DAILY 30 Active Calmoseptine 0.44-20.6 % Externally to buttocks as needed Active RESULTS No Results PROCEDURES No Known [...]
--- OUTSIDE RECORDS SUMMARY | 2018-05-13 07:30 | XMS REPORT ---
Author Author PRECIOUS BOTELLO [facility] Address [address] [place] [address] Care Team Providers Care Carpenter Prototype Name Role Phone PRECIOUS BOTELLO Unavailable PROBLEMS Type Condition ICD9-CM Code EGH54-NR Code Onset Dates Condition Status SNOMED Code Problem Status post closed fracture of hip Z87.81 Active 825659676 Problem Dementia in other diseases classified elsewhere without behavioral disturbance F02.80 Active 503874208 Problem Type 2 diabetes mellitus with other circulatory complication, without long-term current use of insulin E11.59 Active 58430672 Problem Panlobular emphysema J43.1 Active 7112210 Problem Enlarged prostate with lower urinary tract symptoms N40.1 Active 849981088419642 Problem Benign prostatic hyperplasia with lower urinary tract symptoms N40.1 Active 719842886 Problem Polydipsia R63.1 Active 44769683 Problem Depression F32.9 Active 82806909 Problem Type 2 diabetes mellitus with hyperglycemia E11.65 Active 745487030367998 Problem HTN (hypertension) I10 Active 26863777 Problem Bipolar disorder, unspecified F31.9 Active 41282123 Problem Acute left-sided low back pain with left-sided sciatica M54.42 Active 270610110 Problem Low back pain, unspecified back pain laterality, with sciatica presence unspecified M54.5 Active 586081717 Problem 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 Active 88005512 Problem Type 2 diabetes mellitus with diabetic polyneuropathy E11.42 Active 781319617 Problem GERD with esophagitis K21.0 Active 251947233 Problem Status post partial amputation of left foot Z89.432 Active 979108450 Problem Hammer toe, unspecified laterality M20.40 Active 769428528 Problem Tinea pedis, unspecified laterality B35.3 Active 9554049 Problem Other Alzheimers disease G30.8 Active 16580412 Problem Peripheral vascular disease due to secondary diabetes E13.51 Active 2876309 Problem Severe pain R52 Active 44285216 ALLERGIES No Information ENCOUNTERS Encounter Location Date Diagnosis [facility] [address] [address] 14 Feb, 2018 Acute left-sided low back pain with left-sided sciatica M54.42 [place] [id number] [place] [address]- 8[address] Feb, [facility] [address] [id number] Jan, Acute left-sided low back pain with left-sided sciatica M54.42 [place] [id number] [place] [address]- 2916 Jan, Arthralgia, unspecified joint M25.[address] [id number] Jan, Left hip pain M25.552 ; Acute pain of left knee M25.562 and Tobacco abuse Z72.0 [place] [id number] [place] [address] 97126- 6045 Jan, [facility] [address] [id number] Jan, Tobacco abuse Z72.0 [place] [id number] [place] [address] 96909- 5955 Dec, [place] [id number] [place] [address] 14041- 8991 Dec, Arthralgia, unspecified joint M25.50 [place] [address], [place] [address] 6[address] Dec, [place] [id number] [place] [address] 38170- 4211 Dec, [facility] [id number] Dec, Dementia in other diseases classified elsewhere without behavioral disturbance F02.80 ; Peripheral vascular disease due to secondary diabetes E13.51 and 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 [place] [address] [address] Nov, Arthralgia, unspecified joint M25.50 [facility] [address], [place] [address] 1596 Nov, [facility] [address], [place] [address] October, Arthralgia, unspecified joint M25.50 [facility] [address] [place] [id number] October, Arthralgia, unspecified joint M25.50 [facility] [address] [place] [address] Sep, Weakness R53.1 ; Panlobular emphysema J43.1 ; Bipolar disorder, unspecified F31.9 ; Benign prostatic hyperplasia with lower urinary tract symptoms N40.1 and Frequency of micturition R35.0 [place] [id number] [place] [address] 57584- 1276 Sep, [place] [id number] [place] [address] 86498- 8525 Aug, [facility] [address] [id number] Jul, Dementia in other diseases classified elsewhere without behavioral disturbance F02.80 [place] [id number] [id number] Jul, [place] [id number] [place] [address]0540- 3720 Jun, Bipolar disorder, unspecified F31.[address] [facility] [address] [id number] Jun, Pneumonia due to infectious organism, unspecified laterality, unspecified part of lung J18.9 [facility] [address], [place] [address] 8[address] Jun, [facility] [id number] [place] [id number] Jun, [facility] [address] [place] [id number] Apr, Type 2 diabetes mellitus with other circulatory complication, without long -term current use of insulin E11.59 [facility] [id number], [place] [address] 2546 Apr, [place] [address] [id number] [address] Feb, [place] [address] [place] [id number] [address] Feb, [facility] [address] [place] [id number] Feb, Sore throat J02.9 and Polyuria R35.8 [place] [id number] [address] Jan, Bronchitis J40 [facility] [place] [address] [place] [id number] Dec, Cervicalgia M54.2 [place] [address], [place] [address] October, Acute left-sided low back pain with left-sided sciatica M54.42 and Cervicalgia M54.2 [place] [address] [place] [address] [id number] [address] 77[address] Sep, Acute left-sided low back pain with left-sided sciatica M54.42 [place] [id number] [address] Sep, Cervicalgia M54.2 [facility] [place] [address] [place] [address] Sep, Cervicalgia M54.2 and Acute left-sided low back pain with left-sided sciatica M54.42 [place] [id number] [address] Sep, [facility] [address] [place] [address] Jul, Type 2 diabetes mellitus with hyperglycemia E11.65 ; Bipolar disorder F31.9 ; 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 ; Peripheral vascular disease due to secondary diabetes E13.51 and Status post partial amputation of left foot Z89.432 [place] [address] [place] [address] 35516- 0607 Mar, [place] [id number] [place] [address] 08188- 3966 Mar, [place] [id number] [place] [address] 23819- 4083 Mar, [facility] [address] [id number] Mar, Dementia in other diseases classified elsewhere without behavioral disturbance F02.80 ; Polydipsia R63.1 ; HTN (hypertension) I10 ; Hypo- osmolality and hyponatremia E87.1 ; Type 2 diabetes mellitus with other circulatory complication, without long-term current use of insulin E11.59 ; Peripheral vascular disease due to secondary diabetes E13.51 and Bipolar disorder, unspecified F31.9 [place] [address] [place] [address] 69353- 9763 Feb, [place] [id number] [place] [address] 56756- 0270 Jan, [place] [id number] [place] [address] 97806- 0075 Jan, [facility] [address] [place] [address] Jan, Pain of left hip joint M25.552 ; Tobacco abuse Z72.0 and Polydipsia R63.1 [place] [address] [place] [address] 16470- 9272 Jan, [place] [id number] [place] [address] 35611- 2191 Jan, [place] [id number] [place] [address] 06623- 8131 Dec, [place] [address], [place] [address]- 4577 Dec, [facility] [address] [place] [id number] Dec, Status post partial amputation of left foot Z89.432 and Peripheral vascular disease due to secondary diabetes E13.51 [facility] [address], [place] [address] 5411 Dec, [facility] [address] [facility] [id number], [place] [address]- 9433 Dec, [facility] [address] [place] [id number], [place] [address]- 9914 Dec, [facility] [address], [place] [address]- 2152 Nov, [facility] [address], [place] [address]- 4411 Nov, [facility] [address] [place] [address] Nov, Severe pain R52 and Status post closed fracture of hip Z87.81 [facility] [address], [place] [address]- 0058 Nov, [facility] [address], [place] [address]- 2643 Nov, [facility] [address], [place] [address]- 5017 October, Severe pain R52 [facility] [address], [place] [address]- 0422 October, [facility] [address], [place] [address]- 9366 October, Other Alzheimers disease G30.8 and Dementia in other diseases classified elsewhere without behavioral disturbance F02.80 [facility] [address], [place] [address]- 7052 Sep, [facility] [address], [place] [address]- 6309 Aug, [facility] [address] [place] [id number] Aug, Status post partial amputation of left foot Z89.432 ; 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 and Peripheral vascular disease due to secondary diabetes E13.51 [facility] [address], [place] [address]- 6243 Jun, [facility] [address], [place] [address]- 3607 Jun, [facility] [address] [place] [id number] Jun, 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 and Status post partial amputation of left foot Z89.432 [facility] [address] [place] [address] May, Peripheral vascular disease due to secondary diabetes E13.51 ; Status post partial amputation of left foot Z89.432 and 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 [place] [address], [place] [address]- 4391 Mar, Gangrene associated with type II diabetes mellitus E11.52 [place] [id number] [place] [address] 27844- 5284 Mar, [facility] [address] [place] [address] Mar, [place] [address], [place] [address]- 5521 Feb, Nicotine abuse 305.1 [facility] [address], [place] [address]- 4388 Feb, [facility] [address], [place] [address]- 4062 Feb, [facility] [address], [place] [address]- 0607 Jan, [place] [address], [place] [address]- 1106 Jan, Diabetes 250.00 ; Peripheral vascular disease 443.9 and Bipolar affective disorder 296.80 [facility] [address], [place] [address]- 5826 Dec, [facility] [address], [place] [address]- 0216 Dec, [facility] [id number] [address]- 0146 Dec, [facility] [address], [place] [address]- 3426 Dec, [facility] [address], [place] [address]- 2726 Dec, Diabetes mellitus without mention of complication, type II or unspecified type, uncontrolled 250.02 and Vertigo 780.4 [facility] [address], [place] [address]- 3016 Nov, [facility] [address], [place] [address]- 7586 October, Follow-up examination V67.9 ; Diabetes mellitus without mention of complication, type II or unspecified type, uncontrolled 250.02 and Upper respiratory infection 465.9 [facility] [address], [place] [address]- 2446 October, [facility] [address] [place] [id number], [place] [address]- 2166 Sep, [facility] [address], [place] [address]- 9966 Sep, [facility] [address], [place] [address]- 2826 Aug, [facility] [address] [place] [address] [id number], [place] [address]- 2546 Aug, [facility] [address] [place] [address] [id number] [address]- 1918 Aug, [facility] [place] [facility] [address] [id number] [place] [address]- 4645 Jul, 2014 [facility] [place] [facility] [address] [id number] [place] [address]- 7701 Jul, 2014 [facility] [place] [facility] [address] [id number] [place] [address]- 9986 Jul, 2014 [facility] [place] [facility] [address] [id number] [place] [address]- 2958 Jul, 2014 [facility] [place] [facility] [address] [id number] [place] [address]- 7381 May, [facility] [place] [facility] [address] [id number] [place] [address]- 3838 May, [facility] [place] [facility] [address] [id number] [place] [address]- 6636 May, [facility] [place] [facility] [address] [id number] [place] [address]- 1715 May, [facility] [place] [facility] [address] [id number] [place] [address]- 5255 Apr, [facility] [place] [facility] [address] [id number] [place] [address]- 3889 Apr, [facility] [place] [facility] [address] [id number] [place] [address]- 2663 Mar, [facility] [place] [facility] [address] [id number], [place] [address]- 3612 Mar, [facility] [place] [facility] [address] [id number] [place] [address]- 2769 Mar, [facility] [place] [facility] [address] [id number] [place] [address]- 0703 Mar, [facility] [place] [facility] [address] [id number] [place] [address]- 6020 29 Feb, 2014 [facility] [place] [facility] [address] [id number] [place] [address]- 2542 29 Sep, 2013 [facility] [place] [facility] [address] [id number] [place] [address] 2546 23 Sep, 2013 [facility] [place] [facility] [address] [id number] [place] [address] 2546 23 Sep, 2013 [facility] [place] [facility] [address] [id number] [place] [address] 2541 22 Sep, 2013 [facility] [place] [facility] [address] [id number] [place] [address]- 2541 22 Sep, 2013 [facility] [place] [facility] [address] [id number] [place] [address]- 9455 16 Sep, 2013 [facility] [place] [facility] [address] [id number] [place] [address]- 2549 16 Sep, 2013 [facility] [place] [facility] [address] [id number] [place] [address]- 2548 16 Sep, 2013 [facility] [place] [facility] [address] [id number] [place] [address]- 2543 16 Sep, 2013 [facility] [place] [facility] [address] [id number] [place] [address]- 2545 16 Sep, 2013 [facility] [place] [facility] [address] [id number] [place] [address]- 2547 16 Sep, 2013 [facility] [place] [facility] [address] [id number] [place] [address] 2548 11 Sep, 2013 [facility] [place] [facility] [address] [id number] [place] [address]- 2542 11 Sep, 2013 [facility] [place] [facility] [address] [id number] [place] [address] 2546 10 Sep, 2013 [facility] [place] [facility] [address] [id number] [place] [address]- 2546 10 Sep, 2013 [facility] [place] [facility] [address] [id number] [place] 9788 Feb, [facility] [place] [facility] [address] [id number] [place] [address]- 5282 Feb, 2013 [facility] [place] [facility] [address] [id number] [place] [address]- 8842 Feb, [facility] [place] [facility] [address] [id number] [place] [address]- 2733 Feb, [facility] [place] [facility] [address] [id number] [place] [address]- 2249 Feb, [facility] [place] [facility] [address] [id number] [place] [address]- 8400 Jan, [facility] [place] [facility] [address] [id number] [place] [address]- 3511 Jan, [facility] [place] [facility] [address] [id number] [place] [address]- 0520 Jan, [facility] [place] [facility] [address] [id number] [place] [address]- 5371 Jan, [facility] [place] [facility] [address] [id number] [place] [address]- 9182 Nov, [facility] [place] [facility] [address] [id number] [place] [address]- 8515 Nov, [facility] [place] [facility] [address] [id number] [place] [address]- 4144 October, [facility] [place] [facility] [address] [id number] [place] [address]- 9806 October, [facility] [place] [facility] [address] [id number] [place] [address]- 7232 October, [facility] [place] [facility] [address] [id number] [place] [address]- 3630 October, [facility] [place] [facility] [address] [id number] [place] [address]- 2844 October, [facility] [place] [facility] [address] [id number], [place] [address]- 3181 October, [facility] [address] [id number] [place] [address]- 2263 October, [facility] [place] [facility] [address] [facility] [id number] [place] [address]- 6493 October, [facility] [place] [facility] [address] [facility] [id number] [place] [address]- 1516 Sep, [facility] [place] [facility] [address] [facility] [id number] [place] [address]- 6525 Sep, [facility] [place] [facility] [address] [facility] [id number] [place] [address]- 8126 Sep, [facility] [place] [facility] [address] [facility] [id number] [place] [address]- 3186 Sep, [facility] [address] [place] [address]- 2802 Jul, [facility] [place] [facility] [address] [facility] [id number] [place] [address]- 2208 Jul, [facility] [place] [facility] [address] [place] [id number] [place] [address]- 2240 May, [facility] [place] [facility] [address] [facility] [id number] [place] [address]- 8638 May, [facility] [place] [facility] [address] [place] [id number] [place] [address]- 2606 Apr, [facility] [place] [facility] [address] [facility] [id number] [place] [address]- 0093 Apr, [facility] [place] [facility] [address] [facility] [id number] [place] [address]- 4836 Apr, [facility] [place] [facility] [address] [facility] [id number] [place] [address]- 5165 Apr, [facility] [place] [facility] [address] [place] [id number], [place] [address]- 5283 Mar, [facility] [place] [facility] [address] [id number] [place] [address]- 9970 Mar, [facility] [address] [id number] [place] [address]- 7891 Mar, [facility] [place] [facility] [address] [id number] [place] [address]- 2546 Mar, [facility] [address] [id number] [place] [address]- 4785 Feb, [facility] [address] [id number] [place] [address]- 5068 Jan, [facility] [address] [id number] [place] [address]- 3477 Jan, [facility] [address] [id number] [place] [address]- 3288 Jan, [facility] [address] [id number] [place] [address]- 1031 Dec, [facility] [address] [id number] [place] [address]- 2828 October, [facility] [address] [id number] [place] [address]- 7007 October, [facility] [address] [id number] [place] [address]- 7592 October, [facility] [address] [id number] [place] [address]- 9131 October, [facility] [address] [id number] [place] [address]- 3445 October, [facility] [place] [facility] [address] [id number] [place] [address]- 9976 October, [facility] [place] [facility] [address] [id number] [place] [address]- 6366 Sep, [facility] [place] [facility] [address] [id number] [place] [address]- 7709 Sep, [facility] [place] [facility] [address] [id number] [place] [address]- 6377 Jul, [facility] [place] [facility] [address] [id number] [place] [address]- 7822 Jun, [facility] [place] [facility] [address] [id number] [place] 6050 Jun, [facility] [place] [facility] [address] [id number] [place] [address]- 3709 16 Jun, 2012 [facility] [place] [facility] [address] [id number] [place] [address]- 0937 May, [facility] [place] [facility] [address] [id number] [place] [address]- 7027 May, [facility] [place] [facility] [address] [id number] [place] [address] May, [facility] [place] [facility] [address] [id number] [place] [address] May, [facility] [place] [facility] [address] [id number] [place] [address] May, [facility] [place] [facility] [address] [id number] [place] [address] May, [facility] [place] [facility] [address] [id number], [place] [address] Mar, [facility] [place] [facility] [address] [id number], [place] [address] Mar, [facility] [place] [facility] [address] [id number] [place] [address] Mar, [facility] [place] [facility] [address] [id number] [place] [address] Mar, [facility] [place] [facility] [address] [id number] [place] [address] Feb, [facility] [place] [facility] [id number] [address] Dec, [facility] [id number] [address] Dec, [facility] [id number], [place] [address] Dec, [facility] [id number] [address] Nov, [facility] [id number], [place] [address] Nov, [facility] [id number] [place] [address] Nov, [facility] [id number], [place] [address] Nov, [facility] [id number], [place] [address] Aug, [facility] [id number], [place] [address] Jun, [facility] [id number], [place] [address] May, [facility] [id number], [place] [address] Apr, [facility] [id number], [place] [address] Mar, [facility] [id number] [address] May, IMMUNIZATIONS No Known Immunizations SOCIAL HISTORY Never Assessed REASON FOR VISIT Controlled Med Refill PLAN OF CARE VITAL SIGNS MEDICATIONS Medication Instructions Dosage Frequency Start Date End Date Duration Status Tramadol HCl 50 mg Orally 4 times a day 1 tablet 6h October, Mar, 28 days Active RESULTS No Results [...]
--- OUTSIDE RECORDS SUMMARY | 2018-05-13 07:31 | XMS REPORT ---
Author Author PRECIOUS BOTELLO [facility] Address [address] [place] [address] Care Team Providers Care Food Manager Name Role Phone PRECIOUS BOTELLO Unavailable PROBLEMS Type Condition ICD9-CM Code TWU71-FQ Code Onset Dates Condition Status SNOMED Code Problem Status post closed fracture of hip Z87.81 Active 769916171 Problem Dementia in other diseases classified elsewhere without behavioral disturbance F02.80 Active 750477496 Problem Type 2 diabetes mellitus with other circulatory complication, without long-term current use of insulin E11.59 Active 21919615 Problem Panlobular emphysema J43.1 Active 9344256 Problem Enlarged prostate with lower urinary tract symptoms N40.1 Active [id number] Problem Benign prostatic hyperplasia with lower urinary tract symptoms N40.1 Active 994724386 Problem Polydipsia R63.1 Active 88811029 Problem Depression F32.9 Active 75529458 Problem Type 2 diabetes mellitus with hyperglycemia E11.65 Active 589999531289769 Problem HTN (hypertension) I10 Active 11050837 Problem Bipolar disorder, unspecified F31.9 Active 41778199 Problem Acute left-sided low back pain with left-sided sciatica M54.42 Active 900080202 Problem Low back pain, unspecified back pain laterality, with sciatica presence unspecified M54.5 Active 721784947 Problem 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 Active 53773751 Problem Type 2 diabetes mellitus with diabetic polyneuropathy E11.42 Active 933511588 Problem GERD with esophagitis K21.0 Active 619677429 Problem Status post partial amputation of left foot Z89.432 Active 083964369 Problem Hammer toe, unspecified laterality M20.40 Active 947715835 Problem Tinea pedis, unspecified laterality B35.3 Active 6572212 Problem Other Alzheimers disease G30.8 Active 08829159 Problem Peripheral vascular disease due to secondary diabetes E13.51 Active 1028713 Problem Severe pain R52 Active 53337136 ALLERGIES No Information ENCOUNTERS Encounter Location Date Diagnosis [facility] [place] [address] [address] 14 Feb, 2018 Acute left-sided low back pain with left-sided sciatica M54.42 [facility] [id number] [place] [address]67- 4789 Feb, [facility] [address] [id number] Jan, Acute left-sided low back pain with left-sided sciatica M54.42 [place] [address] [place] [id number] [place] [address]- 490[address] Jan, Arthralgia, unspecified joint M25.[address] [id number] Jan, Left hip pain M25.552 ; Acute pain of left knee M25.562 and Tobacco abuse Z72.0 [place] [address] [place] [id number] [place] [address] 66927- 1124 Jan, [facility] [address] [id number] Jan, Tobacco abuse Z72.0 [place] [id number] [place] [address] 59743- 2799 Dec, [place] [id number] [place] [address] 76787- 4429 Dec, Arthralgia, unspecified joint M25.50 [place] [address] [address] 94[address] Dec, [place] [id number] [place] [address] 58063- 9992 Dec, [facility] [id number] Dec, Dementia in other diseases classified elsewhere without behavioral disturbance F02.80 ; Peripheral vascular disease due to secondary diabetes E13.51 and 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 [place] [address] [address] Nov, Arthralgia, unspecified joint M25.50 [facility] [place] [address] [address] 9[address] Nov, [facility] [place] [address] [address] October, Arthralgia, unspecified joint M25.50 [facility] [place] [address] [place] [id number] October, Arthralgia, unspecified joint M25.50 [facility] [place] [address] [place] [address] Sep, Weakness R53.1 ; Panlobular emphysema J43.1 ; Bipolar disorder, unspecified F31.9 ; Benign prostatic hyperplasia with lower urinary tract symptoms N40.1 and Frequency of micturition R35.0 [place] [id number] [place] [address]- 3506 Sep, [facility] [id number] [place] [address] 90891- 3389 Aug, [facility] [address] [id number] Jul, Dementia in other diseases classified elsewhere without behavioral disturbance F02.80 [place] [id number] [address] Jul, [facility] [id number] [place] [address]13- 8422 Jun, Bipolar disorder, unspecified F31.[address] [facility] [address] [id number] Jun, Pneumonia due to infectious organism, unspecified laterality, unspecified part of lung J18.9 [facility] [place] [address] [address] 75[address] Jun, [facility] [id number] [place] [address] [id number] Jun, [facility] [place] [address] [place] [id number] Apr, Type 2 diabetes mellitus with other circulatory complication, without long -term current use of insulin E11.59 [facility] [place] [id number] [address]- [address] Apr, [place] [address] [place] [id number] [address] Feb, [place] [address] [place] [id number] [address] Feb, [facility] [place] [address] [place] [id number] Feb, Sore throat J02.9 and Polyuria R35.8 [place] [address] [id number] [address] Jan, Bronchitis J40 [facility] [address] [place] [id number] Dec, Cervicalgia M54.2 [place] [address] [address] October, Acute left-sided low back pain with left-sided sciatica M54.42 and Cervicalgia M54.2 [place] [address] [place] [id number] [address] 4[address] Sep, Acute left-sided low back pain with left-sided sciatica M54.42 [place] [id number] [address] Sep, Cervicalgia M54.2 [facility] [place] [address] [place] [address] Sep, Cervicalgia M54.2 and Acute left-sided low back pain with left-sided sciatica M54.42 [place] [id number] [address] Sep, [facility] [place] [address] [place] [address] Jul, Type 2 diabetes mellitus with hyperglycemia E11.65 ; Bipolar disorder F31.9 ; 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 ; Peripheral vascular disease due to secondary diabetes E13.51 and Status post partial amputation of left foot Z89.432 [place] [address] [place] [address] 42442- 3311 Mar, [place] [address] [place] [id number] [place] [address] 53921- 6189 Mar, [place] [address] [place] [address] [id number] [place] [address] 68915- 8378 Mar, [facility] [address] [place] [id number] Mar, Dementia in other diseases classified elsewhere without behavioral disturbance F02.80 ; Polydipsia R63.1 ; HTN (hypertension) I10 ; Hypo- osmolality and hyponatremia E87.1 ; Type 2 diabetes mellitus with other circulatory complication, without long-term current use of insulin E11.59 ; Peripheral vascular disease due to secondary diabetes E13.51 and Bipolar disorder, unspecified F31.9 [place] [address] [place] [address] 28959- 8330 Feb, [place] [address] [place] [id number] [place] [address] 82008- 6294 Jan, [place] [address] [address] [id number] [place] [address] 03800- 4696 Jan, [facility] [address] [place] [address] Jan, Pain of left hip joint M25.552 ; Tobacco abuse Z72.0 and Polydipsia R63.1 [place] [address] [place] [address] 75411- 6480 Jan, [place] [address] [place] [id number] [place] [address] 90141- 1271 Jan, [place] [id number] [place] [address] 69516- 3349 Dec, [place] [address] [address]- 1805 Dec, [facility] [place] [address] [place] [address] Dec, Status post partial amputation of left foot Z89.432 and Peripheral vascular disease due to secondary diabetes E13.51 [facility] [place] [address] [address]- 2341 Dec, [facility] [place] [address] [facility] [id number] [address]- 5426 Dec, [facility] [place] [address] [place] [id number] [address]- 0039 Dec, [facility] [place] [address] [address]- 5054 Nov, [facility] [place] [address] [address]- 1178 Nov, [facility] [place] [address] [place] [address] Nov, Severe pain R52 and Status post closed fracture of hip Z87.81 [facility] [place] [address] [address]- 3079 Nov, [facility] [place] [address] [address]- 0769 Nov, [facility] [place] [address] [address]- 3551 October, Severe pain R52 [facility] [place] [address] [address]- 8183 October, [facility] [place] [address] [address]- 8285 October, Other Alzheimers disease G30.8 and Dementia in other diseases classified elsewhere without behavioral disturbance F02.80 [facility] [place] [address] [address]- 6948 Sep, [facility] [place] [address] [address]- 1011 Aug, [facility] [place] [address] [place] [address] Aug, Status post partial amputation of left foot Z89.432 ; 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 and Peripheral vascular disease due to secondary diabetes E13.51 [facility] [place] [address] [address]- 9671 Jun, [facility] [place] [address] [address]- 6351 Jun, [facility] [place] [address] [place] [id number] Jun, 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 and Status post partial amputation of left foot Z89.432 [facility] [place] [address] [place] [id number] May, Peripheral vascular disease due to secondary diabetes E13.51 ; Status post partial amputation of left foot Z89.432 and 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 [place] [address] [address]- 2034 Mar, Gangrene associated with type II diabetes mellitus E11.52 [place] [id number] [place] [address] 14377- 8534 Mar, [facility] [place] [address] [place] [address] Mar, [place] [address] [address]- 4233 Feb, Nicotine abuse 305.1 [facility] [place] [address] [address]- 0321 Feb, [facility] [place] [address] [address]- 9927 Feb, [facility] [place] [address] [address]- 5741 Jan, [place] [address] [address] Jan, Diabetes 250.00 ; Peripheral vascular disease 443.9 and Bipolar affective disorder 296.80 [facility] [place] [address] [address]- 9226 Dec, [facility] [place] [address] [address]- 0236 Dec, [facility] [place] [address] [id number] [address]- 2816 Dec, [facility] [place] [address] [address]- 7256 Dec, [facility] [place] [address] [address]- 4576 Dec, Diabetes mellitus without mention of complication, type II or unspecified type, uncontrolled 250.02 and Vertigo 780.4 [facility] [place] [address] [address]- 0966 Nov, [facility] [place] [address] [address]- 3266 October, Follow-up examination V67.9 ; Diabetes mellitus without mention of complication, type II or unspecified type, uncontrolled 250.02 and Upper respiratory infection 465.9 [facility] [place] [address] [address]- 1586 October, [facility] [place] [address] [place] [id number] [address]- 2236 Sep, [facility] [place] [address] [address]- 3276 Sep, [facility] [place] [address] [address]- 4396 Aug, [facility] [place] [address] [place] [id number] [address]- 2546 Aug, [facility] [place] [address] [place] [id number] [address]- 9442 Aug, [facility] [place] [facility] [address] [id number] [place] [address]- 0525 Jul, 2014 [facility] [place] [facility] [address] [id number] [place] [address]- 2580 Jul, 2014 [facility] [place] [facility] [address] [id number] [place] [address]- 9298 Jul, 2014 [facility] [place] [facility] [address] [id number] [place] [address]- 7085 Jul, 2014 [facility] [place] [facility] [address] [id number] [place] [address]- 1632 May, [facility] [place] [facility] [address] [id number] [place] [address]- 4100 May, [facility] [place] [facility] [address] [id number] [place] [address]- 6393 May, [facility] [place] [facility] [address] [id number] [place] [address]- 6172 May, [facility] [place] [facility] [address] [id number] [place] [address]- 5293 Apr, [facility] [place] [facility] [address] [id number] [place] [address]- 4309 Apr, [facility] [place] [facility] [address] [id number] [place] [address]- 8312 Mar, [facility] [place] [facility] [address] [id number] [address]- 0623 Mar, [facility] [place] [facility] [address] [id number] [place] [address]- 3422 Mar, [facility] [place] [facility] [address] [id number] [place] [address]- 5441 Mar, [facility] [place] [facility] [address] [id number] [place] [address]- 5645 29 Feb, 2014 [facility] [place] [facility] [address] [id number] [place] [address]- 2543 29 Sep, 2013 [facility] [place] [facility] [address] [id number] [place] [address] 2546 23 Sep, 2013 [facility] [place] [facility] [address] [id number] [place] [address] 2546 23 Sep, 2013 [facility] [place] [facility] [address] [id number] [place] [address] 2542 22 Sep, 2013 [facility] [place] [facility] [address] [id number] [place] [address]- 2541 22 Sep, 2013 [facility] [place] [facility] [address] [id number] [place] [address]- 8247 16 Sep, 2013 [facility] [place] [facility] [address] [id number] [place] [address]- 2542 16 Sep, 2013 [facility] [place] [facility] [address] [id number] [place] [address]- 2540 16 Sep, 2013 [facility] [place] [facility] [address] [id number] [place] [address]- 2540 16 Sep, 2013 [facility] [place] [facility] [address] [id number] [place] [address]- 2543 16 Sep, 2013 [facility] [place] [facility] [address] [id number] [place] [address]- 2542 16 Sep, 2013 [facility] [place] [facility] [address] [id number] [place] [address] 2540 11 Sep, 2013 [facility] [place] [facility] [address] [id number] [place] [address]- 2548 11 Sep, 2013 [facility] [place] [facility] [address] [id number] [place] [address] 2546 10 Sep, 2013 [facility] [place] [facility] [address] [id number] [place] [address]- 2546 10 Sep, 2013 [facility] [place] [facility] [address] [id number] [place] 2301 Feb, [facility] [place] [facility] [address] [id number] [place] [address]- 0385 Feb, 2013 [facility] [place] [facility] [address] [id number] [place] [address]- 9661 Feb, [facility] [place] [facility] [address] [id number] [place] [address]- 9549 Feb, [facility] [place] [facility] [address] [id number] [place] [address]- 5868 Feb, [facility] [place] [facility] [address] [id number] [place] [address]- 8843 Jan, [facility] [place] [facility] [address] [id number] [place] [address]- 5561 Jan, [facility] [place] [facility] [address] [id number] [place] [address]- 1906 Jan, [facility] [place] [facility] [address] [id number] [place] [address]- 7844 Jan, [facility] [place] [facility] [address] [id number] [place] [address]- 2520 Nov, [facility] [place] [facility] [address] [id number] [place] [address]- 6984 Nov, [facility] [place] [facility] [address] [id number] [place] [address]- 3528 October, [facility] [place] [facility] [address] [id number] [place] [address]- 6410 October, [facility] [place] [facility] [address] [id number] [place] [address]- 0401 October, [facility] [place] [facility] [address] [id number] [place] [address]- 8271 October, [facility] [place] [facility] [address] [id number] [place] [address]- 5956 October, [facility] [place] [facility] [address] [id number] [address]- 1351 October, [facility] [address] [id number] [place] [address]- 3661 October, [facility] [place] [facility] [address] [facility] [id number] [place] [address]- 7396 October, [facility] [place] [facility] [address] [facility] [id number] [place] [address]- 9699 Sep, [facility] [place] [facility] [address] [facility] [id number] [place] [address]- 8805 Sep, [facility] [place] [facility] [address] [facility] [id number] [place] [address]- 2497 Sep, [facility] [place] [facility] [address] [facility] [id number] [place] [address]- 8185 Sep, [facility] [address] [place] [address]- 1123 Jul, [facility] [place] [facility] [address] [facility] [id number] [place] [address]- 0213 Jul, [facility] [place] [facility] [address] [id number] [place] [address]- 2816 May, [facility] [place] [facility] [address] [facility] [id number] [place] [address]- 5822 May, [facility] [place] [facility] [address] [id number] [place] [address]- 8488 Apr, [facility] [place] [facility] [address] [facility] [id number] [place] [address]- 9668 Apr, [facility] [place] [facility] [address] [facility] [id number] [place] [address]- 2734 Apr, [facility] [place] [facility] [address] [facility] [id number] [place] [address]- 5862 Apr, [facility] [place] [facility] [address] [id number] [address]- 3589 Mar, [facility] [place] [facility] [address] [id number] [place] [address]- 8547 Mar, [facility] [address] [id number] [place] [address]- 7358 Mar, [facility] [place] [facility] [address] [id number] [place] [address]- 2546 Mar, [facility] [address] [id number] [place] [address]- 6872 Feb, [facility] [address] [id number] [place] [address]- 2899 Jan, [facility] [address] [id number] [place] [address]- 5336 Jan, [facility] [address] [id number] [place] [address]- 7218 Jan, [facility] [address] [id number] [place] [address]- 3279 Dec, [facility] [address] [id number] [place] [address]- 8084 October, [facility] [address] [id number] [place] [address]- 7457 October, [facility] [address] [id number] [place] [address]- [address] October, [facility] [address] [id number] [place] [address] October, [facility] [address] [id number] [place] [address] October, [facility] [place] [facility] [address] [id number] [place] [address] October, [facility] [place] [facility] [address] [id number] [place] [address] Sep, [facility] [place] [facility] [address] [id number] [place] [address] Sep, [facility] [place] [facility] [address] [id number] [place] [address] Jul, [facility] [place] [facility] [address] [id number] [place] [address] Jun, [facility] [place] [facility] [address] [id number] [place] [address] Jun, [facility] [place] [facility] [address] [id number] [place] [address] 16 Jun, 2012 [facility] [place] [facility] [address] [id number] [place] [address] May, [facility] [place] [facility] [address] [id number] [place] [address] May, [facility] [place] [facility] [address] [id number] [place] [address] May, [facility] [place] [facility] [address] [id number] [place] [address] May, [facility] [place] [facility] [address] [id number] [place] [address] May, [facility] [place] [facility] [address] [id number] [place] [address] May, [facility] [place] [facility] [address] [id number] [address] Mar, [facility] [place] [facility] [address] [id number] [address] Mar, [facility] [place] [facility] [address] [id number] [place] [address] Mar, [facility] [place] [facility] [address] [id number] [place] [address] Mar, [facility] [place] [facility] [address] [id number] [place] [address] Feb, [facility] [place] [facility] [id number] [address] Dec, [facility] [place] [id number] [address] Dec, [facility] [place] [id number] [address] Dec, [facility] [place] [id number] [address] Nov, [facility] [place] [id number] [address] Nov, [facility] [place] [id number] [place] [address] Nov, [facility] [place] [id number] [address] Nov, [facility] [place], [facility] [id number] [address] Aug, [facility], [place], [facility] [id number] [address] Jun, [facility], [place], [facility] [id number] [address] May, [facility], [place], [facility] [id number] [address] Apr, [facility], [place], [facility] [id number] [address] Mar, [facility], [place], [facility] [id number] [address] May, IMMUNIZATIONS No Known Immunizations SOCIAL HISTORY Never Assessed REASON FOR VISIT Chronic pain follow up PLAN OF CARE Activity Details Follow Up prn Reason: VITAL SIGNS MEDICATIONS Medication Instructions Dosage Frequency Start Date End Date Duration Status Vitamin D3 2000 UNIT Orally Once a day 1 capsule 24h Active [place]-Tussin 100 MG/5ML Orally every 6 hrs 15 ml as needed 6h Active Exelon 1.5 MG Orally Twice a day 1 capsule with food 12h October, 30 day(s) Active Cough Drops 5.8 MG Mouth/Throat every 2-4 hrs 1 lozenge as needed Active Tramadol HCl 50 mg Orally 3 times a day with the Ibuprofen 1 tablet October, Active Ibuprofen 200 mg Orally Three times a day with the Tramado 1 capsule Jan, Apr, 30 days Active Tamsulosin HCl 0.4 MG TAKE 1 CAPSULE BY MOUTH ONCE DAILY 30 Active Latuda 20 MG TAKE 1 TABLET BY MOUTH EVERY DAY 30 Active Aspirin Adult Low Dose 81 MG Orally Once a day 1 tablet 24h Active Pioglitazone HCl 45 MG TAKE 1 TABLET BY MOUTH EVERY DAY 30 Active MiraLax 17 gm/dose Orally once daily as needed 17 grams mixed in 8 oz of water or juice Active Lactobacillus Orally Once a day 1 tablet 24h Active Stress B Complex/Zinc by oral route Once a day 1 tablet 24h Active Albuterol Sulfate 1.25 MG/3ML Inhalation every 12 hours 3 ml as needed 12h Active Simvastatin 20 mg Orally Once a day 1 tablet in the evening 24h 30 days Active Tylenol Extra Strength 500 mg Orally every 6 hrs 1-2 tablets as needed 6h Sep, Active Actos 45 MG Orally Once a day 1 tablet 24h Apr, Active Ferrous Sulfate 325 (65 Fe) MG Orally Once a day 1 tablet 24h Active Clopidogrel Bisulfate 75 MG TAKE 1 TABLET BY MOUTH ONCE DAILY 30 Active Gabapentin 300 MG TAKE 1 CAPSULE BY MOUTH THREE TIMES DAILY 30 Active Tums 500 mg Orally every 12 hrs 1 tablet as needed 12h Active Folic Acid 1 MG Orally Once a day 1 tablet 24h Active Metformin HCl 1000 MG TAKE 1 TABLET BY MOUTH TWICE DAILY 30 Active Calmoseptine 0.44-20.6 % Externally to buttocks as needed Active Venlafaxine HCl ER 150 MG TAKE 1 CAPSULE BY MOUTH ONCE DAILY 30 Active RESULTS No Results PROCEDURES Procedure Date Ordered Result Body Site Stable Visit (10 minutes) Feb 19, 2018 INSTRUCTIONS MEDICATIONS ADMINISTERED No Known Medications [...]
--- OUTSIDE RECORDS SUMMARY | 2018-05-13 07:31 | XMS REPORT ---
Author Author PRECIOUS BOTELLO [facility] Address [address] [place] [address] Care Team Providers Care International Manager Name Role Phone PRECIOUS BOTELLO Unavailable PROBLEMS Type Condition ICD9-CM Code PGN40-KX Code Onset Dates Condition Status SNOMED Code Problem Status post closed fracture of hip Z87.81 Active 029971957 Problem Dementia in other diseases classified elsewhere without behavioral disturbance F02.80 Active 925788896 Problem Type 2 diabetes mellitus with other circulatory complication, without long-term current use of insulin E11.59 Active 90425367 Problem Panlobular emphysema J43.1 Active 4231049 Problem Enlarged prostate with lower urinary tract symptoms N40.1 Active 896431866360773 Problem Benign prostatic hyperplasia with lower urinary tract symptoms N40.1 Active 049758199 Problem Polydipsia R63.1 Active 67235188 Problem Depression F32.9 Active 58077175 Problem Type 2 diabetes mellitus with hyperglycemia E11.65 Active [id number] Problem HTN (hypertension) I10 Active 98778771 Problem Bipolar disorder, unspecified F31.9 Active 68421135 Problem Acute left-sided low back pain with left-sided sciatica M54.42 Active 778033742 Problem Low back pain, unspecified back pain laterality, with sciatica presence unspecified M54.5 Active 796821374 Problem 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 Active 46684716 Problem Type 2 diabetes mellitus with diabetic polyneuropathy E11.42 Active 801148422 Problem GERD with esophagitis K21.0 Active 019135755 Problem Status post partial amputation of left foot Z89.432 Active 639696137 Problem Hammer toe, unspecified laterality M20.40 Active 028283948 Problem Tinea pedis, unspecified laterality B35.3 Active 6640056 Problem Other Alzheimers disease G30.8 Active 10332423 Problem Peripheral vascular disease due to secondary diabetes E13.51 Active 4958403 Problem Severe pain R52 Active 59225384 ALLERGIES No Information ENCOUNTERS Encounter Location Date Diagnosis [facility] [address], [place] [address] 14 Feb, 2018 Acute left-sided low back pain with left-sided sciatica M54.42 [place] [address] [place] [address] 118[address] Feb, [facility] [address] [id number] Jan, Acute left-sided low back pain with left-sided sciatica M54.42 [place] [address] [place] [id number] [place] [address] Jan, Arthralgia, unspecified joint M25.[address] [id number] Jan, Left hip pain M25.552 ; Acute pain of left knee M25.562 and Tobacco abuse Z72.0 [place] [address] [place] [id number] [place] [address]09- 6447 Jan, [facility] [address] [id number] Jan, Tobacco abuse Z72.0 [place] [id number] [place] [address]674- 0967 Dec, [place] [address] [place] [address]498- 5980 Dec, Arthralgia, unspecified joint M25.50 [place] [address], [place] [address] Dec, [place] [address] [place] [address]33- 2672 Dec, [facility] [id number] Dec, Dementia in other diseases classified elsewhere without behavioral disturbance F02.80 ; Peripheral vascular disease due to secondary diabetes E13.51 and 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 [place] [address], [place] [address] Nov, Arthralgia, unspecified joint M25.50 [facility] [address], [place] [address] Nov, [facility] [address], [place] [address] October, Arthralgia, unspecified joint M25.50 [facility] [address] [place] [id number] October, Arthralgia, unspecified joint M25.50 [facility] [address] [place] [address] Sep, Weakness R53.1 ; Panlobular emphysema J43.1 ; Bipolar disorder, unspecified F31.9 ; Benign prostatic hyperplasia with lower urinary tract symptoms N40.1 and Frequency of micturition R35.0 [place] [address] [place] [address]- 6886 Sep, [place] [address] [place] [address] 96992- 1224 Aug, [facility] [address] [id number] Jul, Dementia in other diseases classified elsewhere without behavioral disturbance F02.80 [place] [id number] [id number] Jul, [place] [address] [place] [address]338- 6141 Jun, Bipolar disorder, unspecified F31.[address] [facility] [address] [id number] Jun, Pneumonia due to infectious organism, unspecified laterality, unspecified part of lung J18.9 [facility] [address], [place] [address] Jun, [facility] [address] [place] [id number] [place] [id number] Jun, [facility] [place] [address] [id number] Apr, Type 2 diabetes mellitus with other circulatory complication, without long -term current use of insulin E11.59 [facility] [address] [place] [id number], [place] [address] Apr, [place] [address] [place] [id number] [id number] Feb, [place] [address] [place] [id number] [address] Feb, [facility] [place] [address] [address] Feb, Sore throat J02.9 and Polyuria R35.8 [place] [address] [id number] [id number] Jan, Bronchitis J40 [facility] [address] [place] [id number] Dec, Cervicalgia M54.2 [place] [address], [place] [address] October, Acute left-sided low back pain with left-sided sciatica M54.42 and Cervicalgia M54.2 [place] [address] [place] [id number], [place] [address] Sep, Acute left-sided low back pain with left-sided sciatica M54.42 [place] [id number] [address] Sep, Cervicalgia M54.2 [facility] [place] [address] [id number] Sep, Cervicalgia M54.2 and Acute left-sided low back pain with left-sided sciatica M54.42 [place] [id number] [address] Sep, [facility] [address] [address] Jul, Type 2 diabetes mellitus with hyperglycemia E11.65 ; Bipolar disorder F31.9 ; 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 ; Peripheral vascular disease due to secondary diabetes E13.51 and Status post partial amputation of left foot Z89.432 [place] [address] [place] [address] 15934- 1042 Mar, [place] [address] [place] [id number] [place] [address] 86125- 8170 Mar, [place] [address] [place] [id number] [place] [address] 84160- 0501 Mar, [facility] [address] [id number] Mar, Dementia in other diseases classified elsewhere without behavioral disturbance F02.80 ; Polydipsia R63.1 ; HTN (hypertension) I10 ; Hypo- osmolality and hyponatremia E87.1 ; Type 2 diabetes mellitus with other circulatory complication, without long-term current use of insulin E11.59 ; Peripheral vascular disease due to secondary diabetes E13.51 and Bipolar disorder, unspecified F31.9 [place] [address] [place] [address] 78275- 6523 Feb, [place] [address] [place] [id number] [place] [address] 76379- 7878 Jan, [place] [address] [place] [id number] [place] [address] 54438- 8208 Jan, [facility] [address] [id number] Jan, Pain of left hip joint M25.552 ; Tobacco abuse Z72.0 and Polydipsia R63.1 [place] [address] [place] [address] 60623- 2161 Jan, [place] [address] [place] [id number] [place] [address] 07818- 8450 Jan, [place] [address] [place] [address] 21818- 2640 Dec, [place] [address], [place] [address] 1331 Dec, [facility] [address] [id number] Dec, Status post partial amputation of left foot Z89.432 and Peripheral vascular disease due to secondary diabetes E13.51 [facility] [address], [place] [address] Dec, [facility] [address] [facility] [id number], [place] [address] 48[address] Dec, [facility] [address] [place] [id number], [place] [address] 8873 Dec, [facility] [address], [place] [address]- 9893 Nov, [facility] [address], [place] [address] 0827 Nov, [facility] [address] [id number] Nov, Severe pain R52 and Status post closed fracture of hip Z87.81 [facility] [address], [place] [address] 9309 Nov, [facility] [address], [place] [address]- 4981 Nov, [facility] [address], [place] [address]- 2759 October, Severe pain R52 [facility] [address], [place] [address]- 59[address] October, [facility] [address], [place] [address] 51[address] October, Other Alzheimers disease G30.8 and Dementia in other diseases classified elsewhere without behavioral disturbance F02.80 [facility] [address], [place] [address]- 77[address] Sep, [facility] [address], [place] [address] 6247 Aug, [facility] [address] [id number] Aug, Status post partial amputation of left foot Z89.432 ; 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 and Peripheral vascular disease due to secondary diabetes E13.51 [facility] [address], [place] [address]- 5131 Jun, [facility] [address], [place] [address]- 7[address] Jun, [facility] [address] [address] Jun, 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 and Status post partial amputation of left foot Z89.432 [facility] [address] [address] May, Peripheral vascular disease due to secondary diabetes E13.51 ; Status post partial amputation of left foot Z89.432 and 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 [place] [address], [place] [address]- 7231 Mar, Gangrene associated with type II diabetes mellitus E11.52 [place] [address] [place] [address] 19738- 1933 Mar, [facility] [address] [place] [id number] Mar, [place] [address], [place] [address]- 6401 Feb, Nicotine abuse 305.1 [facility] [address], [place] [address]- 9272 Feb, [facility] [address], [place] [address]- 6029 Feb, [facility] [address], [place] [address]- 3118 Jan, [place] [address], [place] [address]- 0226 Jan, Diabetes 250.00 ; Peripheral vascular disease 443.9 and Bipolar affective disorder 296.80 [facility] [address], [place] [address]- 0146 Dec, [facility] [address], [place] [address]- 2256 Dec, [facility] [address] [place] [id number] [address]- 7296 Dec, [facility] [address], [place] [address]- 7516 Dec, [facility] [address], [place] [address]- 3976 Dec, Diabetes mellitus without mention of complication, type II or unspecified type, uncontrolled 250.02 and Vertigo 780.4 [facility] [address], [place] [address]- 3356 Nov, [facility] [address], [place] [address]- 5866 October, Follow-up examination V67.9 ; Diabetes mellitus without mention of complication, type II or unspecified type, uncontrolled 250.02 and Upper respiratory infection 465.9 [facility] [address], [place] [address]- 2306 October, [facility] [address] [place] [address] [id number], [place] [address]- 2106 Sep, [facility] [address], [place] [address]- 4556 Sep, [facility] [address], [place] [address]- 5056 Aug, [facility] [address] [place] [id number], [place] [address]- 2546 Aug, [facility] [address] [place] [id number], [place] [address]- 6350 Aug, [facility] [place] [facility] [address] [id number] [place] [address]- 3028 Jul, 2014 [facility] [place] [facility] [address] [id number] [place] [address]- 0129 Jul, 2014 [facility] [place] [facility] [address] [id number] [place] [address]- 6512 Jul, 2014 [facility] [place] [facility] [address] [id number] [place] [address]- 7914 Jul, 2014 [facility] [place] [facility] [address] [id number] [place] [address]- 6839 May, [facility] [place] [facility] [address] [id number] [place] [address]- 0430 May, [facility] [place] [facility] [address] [id number] [place] [address]- 4723 May, [facility] [place] [facility] [address] [id number] [place] [address]- 2838 May, [facility] [place] [facility] [address] [id number] [place] [address]- 7960 Apr, [facility] [place] [facility] [address] [id number] [place] [address]- 8430 Apr, [facility] [place] [facility] [address] [id number] [place] [address]- 5978 Mar, [facility] [place] [facility] [address] [id number], [place] [address]- 6867 Mar, [facility] [place] [facility] [address] [id number] [place] [address]- 8563 Mar, [facility] [place] [facility] [address] [id number] [place] [address]- 8669 Mar, [facility] [place] [facility] [address] [id number] [place] [address]- 0764 29 Feb, 2014 [facility] [place] [facility] [address] [id number] [place] [address]- 2542 29 Sep, 2013 [facility] [place] [facility] [address] [id number] [place] [address] 2546 23 Sep, 2013 [facility] [place] [facility] [address] [id number] [place] [address] 2546 23 Sep, 2013 [facility] [place] [facility] [address] [id number] [place] [address] 2545 22 Sep, 2013 [facility] [place] [facility] [address] [id number] [place] [address]- 2543 22 Sep, 2013 [facility] [place] [facility] [address] [id number] [place] [address]- 1398 16 Sep, 2013 [facility] [place] [facility] [address] [id number] [place] [address]- 2548 16 Sep, 2013 [facility] [place] [facility] [address] [id number] [place] [address]- 2547 16 Sep, 2013 [facility] [place] [facility] [address] [id number] [place] [address]- 2545 16 Sep, 2013 [facility] [place] [facility] [address] [id number] [place] [address]- 254 16 Sep, 2013 [facility] [place] [facility] [address] [id number] [place] [address]- 2549 16 Sep, 2013 [facility] [place] [facility] [address] [id number] [place] [address] 2547 11 Sep, 2013 [facility] [place] [facility] [address] [id number] [place] [address]- 2543 11 Sep, 2013 [facility] [place] [facility] [address] [id number] [place] [address] 2546 10 Sep, 2013 [facility] [place] [facility] [address] [id number] [place] [address]- 2546 10 Sep, 2013 [facility] [place] [facility] [address] [id number] [place] [address] Feb, [facility] [place] [facility] [address] [id number] [place] [address]- 1503 Feb, 2013 [facility] [place] [facility] [address] [id number] [place] [address]- 1874 Feb, [facility] [place] [facility] [address] [id number] [place] [address]- 6946 Feb, [facility] [place] [facility] [address] [id number] [place] [address]- 5585 Feb, [facility] [place] [facility] [address] [id number] [place] [address]- 2657 Jan, [facility] [place] [facility] [address] [id number] [place] [address]- 7267 Jan, [facility] [place] [facility] [address] [id number] [place] [address]- 2881 Jan, [facility] [place] [facility] [address] [id number] [place] [address]- 1947 Jan, [facility] [place] [facility] [address] [id number] [place] [address]- 5839 Nov, [facility] [place] [facility] [address] [id number] [place] [address]- 8364 Nov, [facility] [place] [facility] [address] [id number] [place] [address]- 1807 October, [facility] [place] [facility] [address] [id number] [place] [address]- 2107 October, [facility] [place] [facility] [address] [id number] [place] [address]- 2976 October, [facility] [place] [facility] [address] [id number] [place] [address]- 2915 October, [facility] [place] [facility] [address] [id number] [place] [address]- 3116 October, [facility] [place] [facility] [address] [id number], [place] [address]- 5454 October, [facility] [address] [id number] [place] [address]- 8969 October, [facility] [place] [facility] [address] [facility] [id number] [place] [address]- 3829 October, [facility] [place] [facility] [address] [facility] [id number] [place] [address]- 3883 Sep, [facility] [place] [facility] [address] [facility] [id number] [place] [address]- 3609 Sep, [facility] [place] [facility] [address] [facility] [id number] [place] [address]- 1390 Sep, [facility] [place] [facility] [address] [facility] [id number] [place] [address]- 6814 Sep, [facility] [address] [place] [address]- 1237 Jul, [facility] [place] [facility] [address] [facility] [id number] [place] [address]- 3039 Jul, [facility] [place] [facility] [address] [place] [id number] [place] [address]- 5254 May, [facility] [place] [facility] [address] [facility] [id number] [place] [address]- 4875 May, [facility] [place] [facility] [address] [place] [id number] [place] [address]- 0445 Apr, [facility] [place] [facility] [address] [facility] [id number] [place] [address]- 4567 Apr, [facility] [place] [facility] [address] [facility] [id number] [place] [address]- 1605 Apr, [facility] [place] [facility] [address] [facility] [id number] [place] [address]- 3733 Apr, [facility] [place] [facility] [id number], [place] [address]- 4293 Mar, [facility] [place] [facility] [address] [id number] [place] [address]- 6719 Mar, [facility] [address] [id number] [place] [address]- 7462 Mar, [facility] [place] [facility] [address] [id number] [place] [address]- 2546 Mar, [facility] [address] [id number] [place] [address]- 9604 Feb, [facility] [address] [id number] [place] [address]- 6739 Jan, [facility] [address] [id number] [place] [address]- 0372 Jan, [facility] [address] [id number] [place] [address]- 5887 Jan, [facility] [address] [id number] [place] [address]- 5522 Dec, [facility] [address] [id number] [place] [address]- 2610 October, [facility] [address] [id number] [place] [address]- 4635 October, [facility] [address] [id number] [place] [address]- 7422 October, [facility] [address] [id number] [place] [address]- 2200 October, [facility] [address] [id number] [place] [address]- 0027 October, [facility] [place] [facility] [address] [id number] [place] [address]- 5846 October, [facility] [place] [facility] [address] [id number] [place] [address]- 4223 Sep, [facility] [place] [facility] [address] [id number] [place] [address]- 5752 Sep, [facility] [place] [facility] [address] [id number] [place] [address]- 1773 Jul, [facility] [place] [facility] [address] [id number] [place] [address]- 7061 Jun, [facility] [place] [facility] [address] [id number] [place] [address] Jun, [facility] [place] [facility] [address] [id number] [place] [address]- 2099 16 Jun, 2012 [facility] [place] [facility] [address] [id number] [place] [address]- 9321 May, [facility] [place] [facility] [address] [id number] [place] [address]- 8486 May, [facility] [place] [facility] [address] [id number] [place] [address]- 1057 May, [facility] [place] [facility] [address] [id number] [place] [address]- 7111 May, [facility] [place] [facility] [address] [id number] [place] [address]- 2040 May, [facility] [place] [facility] [address] [id number] [place] [address]- 4374 May, [facility] [place] [facility] [address] [id number], [place] [address]- 6586 Mar, [facility] [place] [facility] [address] [id number], [place] [address]- 7329 Mar, [facility] [place] [facility] [address] [id number] [place] [address]- 1981 Mar, [facility] [place] [facility] [address] [id number] [place] [address]- 3459 Mar, [facility] [place] [facility] [address] [id number] [place] [address] Feb, [facility] [place] [facility] [id number] [address] Dec, [facility] [id number], [place] [address] Dec, [facility] [id number], [place] [address] Dec, [facility] [id number], [place] [address] Nov, [facility] [id number], [place] [address] Nov, [facility] [id number] [place] [address] Nov, [facility] [id number], [place] [address] Nov, [facility] [id number], [place] [address] Aug, [facility] [id number], [place] [address] Jun, [facility] [id number], [place] [address] May, [facility] [id number], [place] [address] Apr, [facility] [id number], [place] [address] Mar, [facility] [id number], [place] [address] May, IMMUNIZATIONS No Known Immunizations SOCIAL HISTORY Never Assessed REASON FOR VISIT Controlled Med Refill PLAN OF CARE VITAL SIGNS MEDICATIONS Medication Instructions Dosage Frequency Start Date End Date Duration Status Tramadol HCl 50 mg Orally 4 times a day 1 tablet 6h October, 28 days Active RESULTS No Results PROCEDURES [...]
--- OUTSIDE RECORDS SUMMARY | 2018-05-13 07:32 | XMS REPORT ---
Author Author PRECIOUS BOTELLO [facility] Address [address] [place] [address] Care Team Providers Care Zipper Setter Name Role Phone PRECIOUS BOTELLO Unavailable PROBLEMS Type Condition ICD9-CM Code OLZ83-YR Code Onset Dates Condition Status SNOMED Code Problem Status post closed fracture of hip Z87.81 Active 321143678 Problem Dementia in other diseases classified elsewhere without behavioral disturbance F02.80 Active 892156296 Problem Type 2 diabetes mellitus with other circulatory complication, without long-term current use of insulin E11.59 Active 32778465 Problem Panlobular emphysema J43.1 Active 7092288 Problem Enlarged prostate with lower urinary tract symptoms N40.1 Active [id number] Problem Benign prostatic hyperplasia with lower urinary tract symptoms N40.1 Active 220328876 Problem Polydipsia R63.1 Active 14844655 Problem Depression F32.9 Active 00174212 Problem Type 2 diabetes mellitus with hyperglycemia E11.65 Active 474429943642155 Problem HTN (hypertension) I10 Active 03121645 Problem Bipolar disorder, unspecified F31.9 Active 44799612 Problem Acute left-sided low back pain with left-sided sciatica M54.42 Active 598606025 Problem Low back pain, unspecified back pain laterality, with sciatica presence unspecified M54.5 Active 495039934 Problem 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 Active 02873674 Problem Type 2 diabetes mellitus with diabetic polyneuropathy E11.42 Active 336714985 Problem GERD with esophagitis K21.0 Active 897578717 Problem Status post partial amputation of left foot Z89.432 Active 949237625 Problem Hammer toe, unspecified laterality M20.40 Active 506098279 Problem Tinea pedis, unspecified laterality B35.3 Active 2969647 Problem Other Alzheimers disease G30.8 Active 50984978 Problem Peripheral vascular disease due to secondary diabetes E13.51 Active 6452587 Problem Severe pain R52 Active 23960048 ALLERGIES No Information ENCOUNTERS Encounter Location Date Diagnosis [facility] [address] [address] 14 Feb, 2018 Acute left-sided low back pain with left-sided sciatica M54.42 [place] [address] [place] [address] Feb, [facility] [address] [id number] Jan, Acute left-sided low back pain with left-sided sciatica M54.42 [place] [address] [place] [id number] [place] [address] 69195- 5276 Jan, Arthralgia, unspecified joint M25.[address] [id number] Jan, Left hip pain M25.552 ; Acute pain of left knee M25.562 and Tobacco abuse Z72.0 [place] [address] [place] [address] [id number] [place] [address] 38377- 7712 Jan, [facility] [address] [id number] Jan, Tobacco abuse Z72.0 [place] [address] [place] [address] 77020- 8426 Dec, [place] [address] [place] [address] 87635- 3985 Dec, Arthralgia, unspecified joint M25.50 [place] [address] [address] Dec, [place] [address] [place] [address] 48356- 5[address] Dec, [facility] [id number] Dec, Dementia in other diseases classified elsewhere without behavioral disturbance F02.80 ; Peripheral vascular disease due to secondary diabetes E13.51 and 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 [place] [address] [address] Nov, Arthralgia, unspecified joint M25.50 [facility] [address] [address] Nov, [facility] [address], [place] [address] October, Arthralgia, unspecified joint M25.50 [facility] [address] [place] [address] October, Arthralgia, unspecified joint M25.50 [facility] [address] [place] [address] Sep, Weakness R53.1 ; Panlobular emphysema J43.1 ; Bipolar disorder, unspecified F31.9 ; Benign prostatic hyperplasia with lower urinary tract symptoms N40.1 and Frequency of micturition R35.0 [place] [address] [place] [address] 19034- 2596 Sep, [place] [address] [place] [address] 22623- 3940 Aug, [facility] [address] [id number] Jul, Dementia in other diseases classified elsewhere without behavioral disturbance F02.80 [place] [id number] [id number] Jul, [place] [address] [place] [address] 50795- 7160 Jun, Bipolar disorder, unspecified F31.[address] [facility] [address] [id number] Jun, Pneumonia due to infectious organism, unspecified laterality, unspecified part of lung J18.9 [facility] [address] [address] Jun, [facility] [id number] [place] [id number] Jun, [facility] [address] [place] [id number] Apr, Type 2 diabetes mellitus with other circulatory complication, without long -term current use of insulin E11.59 [facility] [address] [id number] [address] 25[address] Apr, [place] [address] [place] [id number] [id number] Feb, [place] [address] [place] [id number] [address] Feb, [facility] [address] [place] [address] Feb, Sore throat J02.9 and Polyuria R35.8 [place] [address] [id number] [id number] Jan, Bronchitis J40 [facility] [address] [place] [id number] Dec, Cervicalgia M54.2 [place] [address], [place] [address] October, Acute left-sided low back pain with left-sided sciatica M54.42 and Cervicalgia M54.2 [place] [address] [id number] [address] Sep, Acute left-sided low back pain with left-sided sciatica M54.42 [place] [id number] [address] Sep, Cervicalgia M54.2 [facility] [place] [address] [place] [address] Sep, Cervicalgia M54.2 and Acute left-sided low back pain with left-sided sciatica M54.42 [place] [id number] [address] Sep, [facility] [address] [place] [id number] Jul, Type 2 diabetes mellitus with hyperglycemia E11.65 ; Bipolar disorder F31.9 ; 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 [address] [place] [address] Mar, Dementia in other diseases classified elsewhere without behavioral disturbance F02.80 ; Polydipsia R63.1 ; HTN (hypertension) I10 ; Hypo- osmolality and hyponatremia E87.1 ; Type 2 diabetes mellitus with other circulatory complication, without long-term current use of insulin E11.59 ; Peripheral vascular disease due to secondary diabetes E13.51 and Bipolar disorder, unspecified F31.9 [place] [address] [place] [address] 00203- 1199 Feb, [place] [address] [place] [id number] [place] [address] 17375- 5341 Jan, [place] [address] [place] [address] [id number] [place] [address] 93339- 7837 Jan, [facility] [address] [place] [id number] Jan, Pain of left hip joint M25.552 ; Tobacco abuse Z72.0 and Polydipsia R63.1 [place] [address] [place] [address] 65477- 8709 Jan, [place] [address] [place] [address] [id number] [place] [address] 79770- 0561 Jan, [place] [address] [place] [address] 50849- 4682 Dec, [place] [address], [place] [address] 6[address] Dec, [facility] [address] [place] [id number] Dec, Status post partial amputation of left foot Z89.432 and Peripheral vascular disease due to secondary diabetes E13.51 [facility] [address], [place] [address] 14[address] Dec, [facility] [address] [facility] [id number] [address] 4411 Dec, [facility] [address] [place] [id number] [address]- 8619 Dec, [facility] [address], [place] [address] 6[address] Nov, [facility] [address], [place] [address]- 3069 Nov, [facility] [address] [place] [id number] Nov, Severe pain R52 and Status post closed fracture of hip Z87.81 [facility] [address], [place] [address] 0108 Nov, [facility] [address], [place] [address]- 0487 Nov, [facility] [address], [place] [address]- 9485 October, Severe pain R52 [facility] [address], [place] [address]- 5[address] October, [facility] [address] [address]- 6534 October, Other Alzheimers disease G30.8 and Dementia in other diseases classified elsewhere without behavioral disturbance F02.80 [facility] [address], [place] [address] 9733 Sep, [facility] [address], [place] [address] 2371 Aug, [facility] [address] [place] [address] Aug, Status post partial amputation of left foot Z89.432 ; 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 and Peripheral vascular disease due to secondary diabetes E13.51 [facility] [address], [place] [address]- 1092 Jun, [facility] [address], [place] [address]- 5718 Jun, [facility] [address] [place] [id number] Jun, 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 and Status post partial amputation of left foot Z89.432 [facility] [address] [place] [address] May, Peripheral vascular disease due to secondary diabetes E13.51 ; Status post partial amputation of left foot Z89.432 and 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 [place] [address], [place] [address]- 7854 Mar, Gangrene associated with type II diabetes mellitus E11.52 [place] [address] [place] [address] 34118- 6596 Mar, [facility] [address] [place] [id number] Mar, [place] [address], [place] [address]- 8239 Feb, Nicotine abuse 305.1 [facility] [address], [place] [address]- 1615 Feb, [facility] [address], [place] [address]- 5833 Feb, [facility] [address], [place] [address]- 08[address] Jan, [place] [address], [place] [address]- 0916 Jan, Diabetes 250.00 ; Peripheral vascular disease 443.9 and Bipolar affective disorder 296.80 [facility] [address], [place] [address]- 0356 Dec, [facility] [address], [place] [address]- 7406 Dec, [facility] [address] [place] [id number], [place] [address]- 6136 Dec, [facility] [address], [place] [address]- 0396 Dec, [facility] [address], [place] [address]- 8866 Dec, Diabetes mellitus without mention of complication, type II or unspecified type, uncontrolled 250.02 and Vertigo 780.4 [facility] [address], [place] [address]- 9536 Nov, [facility] [address], [place] [address]- 6[address] October, Follow-up examination V67.9 ; Diabetes mellitus without mention of complication, type II or unspecified type, uncontrolled 250.02 and Upper respiratory infection 465.9 [facility] [address], [place] [address]- 6146 October, [facility] [address] [place] [id number] [address]- 0376 Sep, [facility] [address], [place] [address]- 6256 Sep, [facility] [address], [place] [address]- 5896 Aug, [facility] [address] [place] [id number] [address]- 2546 Aug, [facility] [address] [place] [address] [id number] [address]- 0578 Aug, [facility] [place] [facility] [address] [id number] [place] [address]- 0337 Jul, 2014 [facility] [place] [facility] [address] [id number] [place] [address]- 5024 Jul, 2014 [facility] [place] [facility] [address] [id number] [place] [address]- 2975 Jul, 2014 [facility] [place] [facility] [address] [id number] [place] [address]- 1655 Jul, 2014 [facility] [place] [facility] [address] [id number] [place] [address]- 0904 May, [facility] [place] [facility] [address] [id number] [place] [address]- 9219 May, [facility] [place] [facility] [address] [id number] [place] [address]- 1556 May, [facility] [place] [facility] [address] [id number] [place] [address]- 0804 May, [facility] [place] [facility] [address] [id number] [place] [address]- 3229 Apr, [facility] [place] [facility] [address] [id number] [place] [address]- 5104 Apr, [facility] [place] [facility] [address] [id number] [place] [address]- 1408 Mar, [facility] [place] [facility] [address] [id number] [address]- 6732 Mar, [facility] [place] [facility] [address] [id number] [place] [address]- 9378 Mar, [facility] [place] [facility] [address] [id number] [place] [address]- 8019 Mar, [facility] [place] [facility] [address] [id number] [place] [address]- 0468 29 Feb, 2014 [facility] [place] [facility] [address] [id number] [place] [address]- 254 29 Sep, 2013 [facility] [place] [facility] [address] [id number] [place] [address] 2546 23 Sep, 2013 [facility] [place] [facility] [address] [id number] [place] [address] 2546 23 Sep, 2013 [facility] [place] [facility] [address] [id number] [place] [address] 2540 22 Sep, 2013 [facility] [place] [facility] [address] [id number] [place] [address]- 254 22 Sep, 2013 [facility] [place] [facility] [address] [id number] [place] [address]- 1581 16 Sep, 2013 [facility] [place] [facility] [address] [id number] [place] [address]- 2544 16 Sep, 2013 [facility] [place] [facility] [address] [id number] [place] [address]- 2542 16 Sep, 2013 [facility] [place] [facility] [address] [id number] [place] [address]- 2548 16 Sep, 2013 [facility] [place] [facility] [address] [id number] [place] [address]- 2540 16 Sep, 2013 [facility] [place] [facility] [address] [id number] [place] [address]- 2548 16 Sep, 2013 [facility] [place] [facility] [address] [id number] [place] [address] 2544 11 Sep, 2013 [facility] [place] [facility] [address] [id number] [place] [address]- 2548 11 Sep, 2013 [facility] [place] [facility] [address] [id number] [place] [address] 2546 10 Sep, 2013 [facility] [place] [facility] [address] [id number] [place] [address]- 2546 10 Sep, 2013 [facility] [place] [facility] [address] [id number] [place] 9008 Feb, [facility] [place] [facility] [address] [id number] [place] [address]- 9731 Feb, 2013 [facility] [place] [facility] [address] [id number] [place] [address]- 8407 Feb, [facility] [place] [facility] [address] [id number] [place] [address]- 4872 Feb, [facility] [place] [facility] [address] [id number] [place] [address]- 1388 Feb, [facility] [place] [facility] [address] [id number] [place] [address]- 0131 Jan, [facility] [place] [facility] [address] [id number] [place] [address]- 0639 Jan, [facility] [place] [facility] [address] [id number] [place] [address]- 3319 Jan, [facility] [place] [facility] [address] [id number] [place] [address]- 8116 Jan, [facility] [place] [facility] [address] [id number] [place] [address]- 4551 Nov, [facility] [place] [facility] [address] [id number] [place] [address]- 6347 Nov, [facility] [place] [facility] [address] [id number] [place] [address]- 4709 October, [facility] [place] [facility] [address] [id number] [place] [address]- 0280 October, [facility] [place] [facility] [address] [id number] [place] [address]- 3427 October, [facility] [place] [facility] [address] [id number] [place] [address]- 2855 October, [facility] [place] [facility] [address] [id number] [place] [address]- 3726 October, [facility] [place] [facility] [address] [id number], [place] [address]- 8047 October, [facility] [address] [id number] [place] [address]- 5980 October, [facility] [place] [facility] [address] [facility] [id number] [place] [address]- 8027 October, [facility] [place] [facility] [address] [facility] [id number] [place] [address]- 0796 Sep, [facility] [place] [facility] [address] [facility] [id number] [place] [address]- 4920 Sep, [facility] [place] [facility] [address] [facility] [id number] [place] [address]- 3953 Sep, [facility] [place] [facility] [address] [facility] [id number] [place] [address]- 0474 Sep, [facility] [address] [address]- 1945 Jul, [facility] [place] [facility] [address] [facility] [id number] [place] [address]- 1132 Jul, [facility] [place] [facility] [address] [place] [id number] [address]- 3465 May, [facility] [place] [facility] [address] [facility] [id number] [place] [address]- 0605 May, [facility] [place] [facility] [address] [id number] [address]- 4832 Apr, [facility] [place] [facility] [address] [facility] [id number] [place] [address]- 2708 Apr, [facility] [place] [facility] [address] [facility] [id number] [place] [address]- 2104 Apr, [facility] [place] [facility] [address] [facility] [id number] [place] [address]- 2683 Apr, [facility] [place] [facility] [id number] [address]- 9451 Mar, [facility] [place] [facility] [address] [id number] [place] [address]- 3691 Mar, [facility] [address] [id number] [place] [address]- 8082 Mar, [facility] [place] [facility] [address] [id number] [place] [address]- 2546 Mar, [facility] [address] [id number] [place] [address]- 3637 Feb, [facility] [address] [id number] [place] [address]- 3380 Jan, [facility] [address] [id number] [place] [address]- 1089 Jan, [facility] [address] [id number] [place] [address]- 0286 Jan, [facility] [address] [id number] [place] [address]- 3794 Dec, [facility] [address] [id number] [place] [address]- 4715 October, [facility] [address] [id number] [place] [address]- 8677 October, [facility] [address] [id number] [place] [address]- 4927 October, [facility] [address] [id number] [place] [address]- 4898 October, [facility] [address] [id number] [place] [address]- 8126 October, [facility] [place] [facility] [address] [id number] [place] [address]- 1826 October, [facility] [place] [facility] [address] [id number] [place] [address]- 1067 Sep, [facility] [place] [facility] [address] [id number] [place] [address]- 9393 Sep, [facility] [place] [facility] [address] [id number] [place] [address]- 7064 Jul, [facility] [place] [facility] [address] [id number] [place] [address]- 2639 Jun, [facility] [place] [facility] [address] [id number] [place] 7486 Jun, [facility] [place] [facility] [address] [id number] [place] [address]- 4073 16 Jun, 2012 [facility] [place] [facility] [address] [id number] [place] [address]- 5775 May, [facility] [place] [facility] [address] [id number] [place] [address]- 4004 May, [facility] [place] [facility] [address] [id number] [place] [address]- 8523 May, [facility] [place] [facility] [address] [id number] [place] [address]- 3979 May, [facility] [place] [facility] [address] [id number] [place] [address]- 8656 May, [facility] [place] [facility] [address] [id number] [place] [address]- 4621 May, [facility] [place] [facility] [address] [id number], [place] [address]- 9073 Mar, [facility] [place] [facility] [address] [id number], [place] [address]- 6026 Mar, [facility] [place] [facility] [address] [id number] [place] [address]- 5956 Mar, [facility] [place] [facility] [address] [id number] [place] [address]- 0058 Mar, [facility] [place] [facility] [address] [id number] [place] [address] Feb, [facility] [place] [facility] [id number] [address] Dec, [facility] [id number] [address] Dec, [facility] [id number] [address] Dec, [facility] [id number] [address] Nov, [facility] [id number] [address] Nov, [facility] [id number] [place] [address] Nov, [facility] [id number] [address] Nov, [facility] [id number] [address] Aug, [facility] [id number], [place] [address] Jun, [facility] [id number] [address] May, [facility] [id number], [place] [address] Apr, [facility] [id number] [address] Mar, [facility] [id number] [address] May, IMMUNIZATIONS No Known Immunizations SOCIAL HISTORY Never Assessed REASON FOR VISIT Wants to quit smoking PLAN OF CARE Activity Details Follow Up prn Reason: VITAL SIGNS MEDICATIONS Medication Instructions Dosage Frequency Start Date End Date Duration Status Calmoseptine 0.44-20.6 % Externally to buttocks as needed Active Clopidogrel Bisulfate 75 MG TAKE 1 TABLET BY MOUTH ONCE DAILY 30 Active Chantix 0.5 MG Orally Once a day at hs X 14 days then 0.5mg bid 1 tablet Jan, Feb, 30 day(s) Active Pioglitazone HCl 45 MG TAKE 1 TABLET BY MOUTH EVERY DAY 30 Active Ferrous Sulfate 325 (65 Fe) MG Orally Once a day 1 tablet 24h Active Albuterol Sulfate 1.25 MG/3ML Inhalation every 12 hours 3 ml as needed 12h Active Tramadol HCl 50 mg Orally 4 times a day 1 tablet 6h October, 28 days Active Aspirin Adult Low Dose 81 MG Orally Once a day 1 tablet 24h Active Latuda 20 MG TAKE 1 TABLET BY MOUTH EVERY DAY 30 Active [place]-Tussin 100 MG/5ML Orally every 6 hrs 15 ml as needed 6h Active Cough Drops 5.8 MG Mouth/Throat every 2-4 hrs 1 lozenge as needed Active Folic Acid 1 MG Orally Once a day 1 tablet 24h Active Vitamin D3 2000 UNIT Orally Once a day 1 capsule 24h Active Exelon 1.5 MG Orally Twice a day 1 capsule with food 12h 24 Oct, 2015 30 day(s) Active Tamsulosin HCl 0.4 MG TAKE 1 CAPSULE BY MOUTH ONCE DAILY 30 Active Tylenol Extra Strength 500 mg Orally every 6 hrs 1-2 tablets as needed 6h Sep, Active Actos 45 MG Orally Once a day 1 tablet 24h Apr, Active Stress B Complex/Zinc by oral route Once a day 1 tablet 24h Active Tums 500 mg Orally every 12 hrs 1 tablet as needed 12h Active Gabapentin 300 MG TAKE 1 CAPSULE BY MOUTH THREE TIMES DAILY 30 Active Metformin HCl 1000 MG TAKE 1 TABLET BY MOUTH TWICE DAILY 30 Active Lactobacillus Orally Once a day 1 tablet 24h Active Venlafaxine HCl ER 150 MG TAKE 1 CAPSULE BY MOUTH ONCE DAILY 30 Active MiraLax 17 gm/dose Orally once daily as needed 17 grams mixed in 8 oz of water or juice Active Simvastatin 20 mg Orally Once a day 1 tablet in the evening 24h 30 days Active RESULTS No Results PROCEDURES Procedure Date Ordered Result Body Site Minor complication (15 mins) Jan 22, 2018 INSTRUCTIONS MEDICATIONS ADMINISTERED No Known Medications [...]
--- OUTSIDE RECORDS SUMMARY | 2018-05-13 07:32 | XMS REPORT ---
Author Author PRECIOUS BOTELLO [facility] Address [address] [place] [address] Care Team Providers Care Senior Care Provider Name Role Phone PRECIOUS BOTELLO Unavailable PROBLEMS Type Condition ICD9-CM Code ULV08-PS Code Onset Dates Condition Status SNOMED Code Problem Status post closed fracture of hip Z87.81 Active 630652070 Problem Dementia in other diseases classified elsewhere without behavioral disturbance F02.80 Active 131692857 Problem Type 2 diabetes mellitus with other circulatory complication, without long-term current use of insulin E11.59 Active 78737718 Problem Panlobular emphysema J43.1 Active 0390543 Problem Enlarged prostate with lower urinary tract symptoms N40.1 Active 749070289972696 Problem Benign prostatic hyperplasia with lower urinary tract symptoms N40.1 Active 982373963 Problem Polydipsia R63.1 Active 88208089 Problem Depression F32.9 Active 68440904 Problem Type 2 diabetes mellitus with hyperglycemia E11.65 Active 247676318641020 Problem HTN (hypertension) I10 Active 07980621 Problem Bipolar disorder, unspecified F31.9 Active 92419102 Problem Acute left-sided low back pain with left-sided sciatica M54.42 Active 403125850 Problem Low back pain, unspecified back pain laterality, with sciatica presence unspecified M54.5 Active 599580307 Problem 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 Active 25620944 Problem Type 2 diabetes mellitus with diabetic polyneuropathy E11.42 Active 351402387 Problem GERD with esophagitis K21.0 Active 617786668 Problem Status post partial amputation of left foot Z89.432 Active 645943422 Problem Hammer toe, unspecified laterality M20.40 Active 307246816 Problem Tinea pedis, unspecified laterality B35.3 Active 4879829 Problem Other Alzheimers disease G30.8 Active 57899110 Problem Peripheral vascular disease due to secondary diabetes E13.51 Active 0252872 Problem Severe pain R52 Active 17264976 ALLERGIES No Information ENCOUNTERS Encounter Location Date Diagnosis [facility] [address] [address] 14 Feb, 2018 Acute left-sided low back pain with left-sided sciatica M54.42 [place] [address] [place] [address]47- [address]88 Feb, [facility] [address] [id number] Jan, Acute left-sided low back pain with left-sided sciatica M54.42 [place] [address] [place] [id number] [place] [address] 84[address] Jan, Arthralgia, unspecified joint M25.[address] [id number] Jan, Left hip pain M25.552 ; Acute pain of left knee M25.562 and Tobacco abuse Z72.0 [place] [address] [place] [id number] [place] [address] 41352- 2178 Jan, [facility] [address] [id number] Jan, Tobacco abuse Z72.0 [place] [address] [place] [address] 66612- 1503 Dec, [place] [address] [place] [address] 92116- 9323 Dec, Arthralgia, unspecified joint M25.50 [place] [address] [address] Dec, [place] [address] [place] [address] 56567- 6568 Dec, [facility] [id number] Dec, Dementia in other diseases classified elsewhere without behavioral disturbance F02.80 ; Peripheral vascular disease due to secondary diabetes E13.51 and 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 [place] [address] [address] Nov, Arthralgia, unspecified joint M25.50 [facility] [address] [address] Nov, [facility] [address] [address] October, Arthralgia, unspecified joint M25.50 [facility] [place] [address] [place] [address] October, Arthralgia, unspecified joint M25.50 [facility] [place] [address] [place] [address] Sep, Weakness R53.1 ; Panlobular emphysema J43.1 ; Bipolar disorder, unspecified F31.9 ; Benign prostatic hyperplasia with lower urinary tract symptoms N40.1 and Frequency of micturition R35.0 [place] [address] [place] [address] 14046- 6626 Sep, [place] [address] [place] [address]8563- [address] Aug, [facility] [address] [id number] Jul, Dementia in other diseases classified elsewhere without behavioral disturbance F02.80 [place] [id number] [id number] Jul, [place] [address] [place] [address] 33726- 0521 Jun, Bipolar disorder, unspecified F31.[address] [facility] [address] [id number] Jun, Pneumonia due to infectious organism, unspecified laterality, unspecified part of lung J18.9 [facility] [address] [address] 8[address] Jun, [facility] [address] [place] [id number] [place] [address] [id number] Jun, [facility] [place] [address] [place] [id number] Apr, Type 2 diabetes mellitus with other circulatory complication, without long -term current use of insulin E11.59 [facility] [address] [place] [id number] [address] 25[address] Apr, [place] [address] [place] [id number] [address] Feb, [place] [address] [place] [id number] [address] Feb, [facility] [place] [address] [place] [id number] Feb, Sore throat J02.9 and Polyuria R35.8 [place] [address] [id number] [id number] Jan, Bronchitis J40 [facility] [address] [place] [id number] Dec, Cervicalgia M54.2 [place] [address] [address] October, Acute left-sided low back pain with left-sided sciatica M54.42 and Cervicalgia M54.2 [place] [address] [place] [id number] [address] Sep, Acute left-sided low back pain with left-sided sciatica M54.42 [place] [address] [id number] [address] Sep, Cervicalgia M54.2 [facility] [place] [address] [place] [address] Sep, Cervicalgia M54.2 and Acute left-sided low back pain with left-sided sciatica M54.42 [place] [id number] [place] [address] Sep, [facility] [place] [address] [place] [address] Jul, Type 2 diabetes mellitus with hyperglycemia E11.65 ; Bipolar disorder F31.9 ; 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 ; Peripheral vascular disease due to secondary diabetes E13.51 and Status post partial amputation of left foot Z89.432 [place] [address] [place] [address] 89942- 8864 Mar, [place] [address] [place] [id number] [place] [address] 37077- 9333 Mar, [place] [address] [place] [id number] [place] [address] 11925- 3230 Mar, [facility] [address] [place] [id number] Mar, Dementia in other diseases classified elsewhere without behavioral disturbance F02.80 ; Polydipsia R63.1 ; HTN (hypertension) I10 ; Hypo- osmolality and hyponatremia E87.1 ; Type 2 diabetes mellitus with other circulatory complication, without long-term current use of insulin E11.59 ; Peripheral vascular disease due to secondary diabetes E13.51 and Bipolar disorder, unspecified F31.9 [place] [address] [place] [address] 11017- 6531 Feb, [place] [address] [place] [id number] [place] [address] 94748- 5755 Jan, [place] [address] [place] [id number] [place] [address] 39846- 3985 Jan, [facility] [address] [place] [id number] Jan, Pain of left hip joint M25.552 ; Tobacco abuse Z72.0 and Polydipsia R63.1 [place] [address] [place] [address] 61745- 0990 Jan, [place] [address] [place] [id number] [place] [address] 14572- 0105 Jan, [place] [address] [place] [address] 99098- 6489 Dec, [place] [address] [address]- 1754 Dec, [facility] [place] [address] [place] [address] Dec, Status post partial amputation of left foot Z89.432 and Peripheral vascular disease due to secondary diabetes E13.51 [facility] [address] [address]- 2335 Dec, [facility] [address] [facility] [id number] [address]- 0361 Dec, [facility] [address] [place] [id number] [address] 0815 Dec, [facility] [address] [address]- 8330 Nov, [facility] [address] [address]- 3[address] Nov, [facility] [place] [address] [place] [address] Nov, Severe pain R52 and Status post closed fracture of hip Z87.81 [facility] [address] [address]- 3750 Nov, [facility] [address] [address]- 3287 Nov, [facility] [address] [address]- 3696 October, Severe pain R52 [facility] [address] [address]- 5612 October, [facility] [address] [address]- 1276 October, Other Alzheimers disease G30.8 and Dementia in other diseases classified elsewhere without behavioral disturbance F02.80 [facility] [address] [address]- 8408 Sep, [facility] [address] [address]- 9952 Aug, [facility] [place] [address] [place] [address] Aug, Status post partial amputation of left foot Z89.432 ; 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 and Peripheral vascular disease due to secondary diabetes E13.51 [facility] [address] [address]- 0155 Jun, [facility] [address] [address]- 4550 Jun, [facility] [address] [place] [address] Jun, 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 and Status post partial amputation of left foot Z89.432 [facility] [address] [place] [address] May, Peripheral vascular disease due to secondary diabetes E13.51 ; Status post partial amputation of left foot Z89.432 and 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 [place] [address] [address]- 2717 Mar, Gangrene associated with type II diabetes mellitus E11.52 [place] [address] [place] [address] 61956- 9838 Mar, [facility] [place] [address] [place] [address] Mar, [place] [address] [address]- 0710 Feb, Nicotine abuse 305.1 [facility] [address] [address]- 1891 Feb, [facility] [address] [address]- 7177 Feb, [facility] [address] [address]- 2962 Jan, [place] [address] [address]- 1426 Jan, Diabetes 250.00 ; Peripheral vascular disease 443.9 and Bipolar affective disorder 296.80 [facility] [address] [address]- 7546 Dec, [facility] [address] [address]- 1406 Dec, [facility] [address] [place] [address] [id number] [address]- 7326 Dec, [facility] [address] [address]- 7076 Dec, [facility] [address] [address]- 1416 Dec, Diabetes mellitus without mention of complication, type II or unspecified type, uncontrolled 250.02 and Vertigo 780.4 [facility] [address] [address]- 6536 Nov, [facility] [address] [address]- 3956 October, Follow-up examination V67.9 ; Diabetes mellitus without mention of complication, type II or unspecified type, uncontrolled 250.02 and Upper respiratory infection 465.9 [facility] [address] [address]- 8116 October, [facility] [address] [place] [address] [id number] [address]- 6916 Sep, [facility] [address] [address]- 7396 Sep, [facility] [address] [address]- 5996 Aug, [facility] [address] [place] [address] [id number] [address]- 2546 Aug, [facility] [address] [place] [address] [id number] [address]- 0391 Aug, [facility] [place] [facility] [address] [id number] [place] [address]- 7826 Jul, 2014 [facility] [place] [facility] [address] [id number] [place] [address]- 2217 Jul, 2014 [facility] [place] [facility] [address] [id number] [place] [address]- 2640 Jul, 2014 [facility] [place] [facility] [address] [id number] [place] [address]- 3511 Jul, 2014 [facility] [place] [facility] [address] [id number] [place] [address]- 8209 May, [facility] [place] [facility] [address] [id number] [place] [address]- 7898 May, [facility] [place] [facility] [address] [id number] [place] [address]- 5056 May, [facility] [place] [facility] [address] [id number] [place] [address]- 5060 May, [facility] [place] [facility] [address] [id number] [place] [address]- 6889 Apr, [facility] [place] [facility] [address] [id number] [place] [address]- 4843 Apr, [facility] [place] [facility] [address] [id number] [place] [address]- 9951 Mar, [facility] [place] [facility] [address] [id number] [address]- 9138 Mar, [facility] [place] [facility] [address] [id number] [place] [address]- 3861 Mar, [facility] [place] [facility] [address] [id number] [place] [address]- 8811 Mar, [facility] [place] [facility] [address] [id number] [place] [address]- 6869 29 Feb, 2014 [facility] [place] [facility] [address] [id number] [place] [address]- 2540 29 Sep, 2013 [facility] [place] [facility] [address] [id number] [place] [address] 2546 23 Sep, 2013 [facility] [place] [facility] [address] [id number] [place] [address] 2546 23 Sep, 2013 [facility] [place] [facility] [address] [id number] [place] [address] 2540 22 Sep, 2013 [facility] [place] [facility] [address] [id number] [place] [address]- 2549 22 Sep, 2013 [facility] [place] [facility] [address] [id number] [place] [address]- 5430 16 Sep, 2013 [facility] [place] [facility] [address] [id number] [place] [address]- 2541 16 Sep, 2013 [facility] [place] [facility] [address] [id number] [place] [address]- 254 16 Sep, 2013 [facility] [place] [facility] [address] [id number] [place] [address]- 2540 16 Sep, 2013 [facility] [place] [facility] [address] [id number] [place] [address]- 2541 16 Sep, 2013 [facility] [place] [facility] [address] [id number] [place] [address]- 2541 16 Sep, 2013 [facility] [place] [facility] [address] [id number] [place] [address] 2541 11 Sep, 2013 [facility] [place] [facility] [address] [id number] [place] [address]- 2545 11 Sep, 2013 [facility] [place] [facility] [address] [id number] [place] [address] 2546 10 Sep, 2013 [facility] [place] [facility] [address] [id number] [place] [address]- 2546 10 Sep, 2013 [facility] [place] [facility] [address] [id number] [place] 8911 Feb, [facility] [place] [facility] [address] [id number] [place] [address]- 1557 Feb, 2013 [facility] [place] [facility] [address] [id number] [place] [address]- 3425 Feb, [facility] [place] [facility] [address] [id number] [place] [address]- 6563 Feb, [facility] [place] [facility] [address] [id number] [place] [address]- 0561 Feb, [facility] [place] [facility] [address] [id number] [place] [address]- 0295 Jan, [facility] [place] [facility] [address] [id number] [place] [address]- 9988 Jan, [facility] [place] [facility] [address] [id number] [place] [address]- 1743 Jan, [facility] [place] [facility] [address] [id number] [place] [address]- 8293 Jan, [facility] [place] [facility] [address] [id number] [place] [address]- 4027 Nov, [facility] [place] [facility] [address] [id number] [place] [address]- 1132 Nov, [facility] [place] [facility] [address] [id number] [place] [address]- 6046 October, [facility] [place] [facility] [address] [id number] [place] [address]- 7240 October, [facility] [place] [facility] [address] [id number] [place] [address]- 8544 October, [facility] [place] [facility] [address] [id number] [place] [address]- 7360 October, [facility] [place] [facility] [address] [id number] [place] [address]- 4316 October, [facility] [place] [facility] [address] [id number] [address]- 6214 October, [facility] [address] [id number] [place] [address]- 3573 October, [facility] [place] [facility] [address] [facility] [id number] [place] [address]- 8398 October, [facility] [place] [facility] [address] [facility] [id number] [place] [address]- 6013 Sep, [facility] [place] [facility] [address] [facility] [id number] [place] [address]- 7780 Sep, [facility] [place] [facility] [address] [facility] [id number] [place] [address]- 6195 Sep, [facility] [place] [facility] [address] [facility] [id number] [place] [address]- 1443 Sep, [facility] [address] [place] [address]- 8424 Jul, [facility] [place] [facility] [address] [facility] [id number] [place] [address]- 4728 Jul, [facility] [place] [facility] [address] [place] [address] [id number] [place] [address]- 9477 May, [facility] [place] [facility] [address] [facility] [id number] [place] [address]- 1830 May, [facility] [place] [facility] [address] [place] [address] [id number] [place] [address]- 5283 Apr, [facility] [place] [facility] [address] [facility] [id number] [place] [address]- 9938 Apr, [facility] [place] [facility] [address] [facility] [id number] [place] [address]- 5793 Apr, [facility] [place] [facility] [address] [facility] [id number] [place] [address]- 1915 Apr, [facility] [place] [facility] [id number] [address]- 3386 Mar, [facility] [place] [facility] [address] [id number] [place] [address]- 2478 Mar, [facility] [address] [id number] [place] [address]- 1917 Mar, [facility] [place] [facility] [address] [id number] [place] [address]- 2546 Mar, [facility] [address] [id number] [place] [address]- 8731 Feb, [facility] [address] [id number] [place] [address]- 9714 Jan, [facility] [address] [id number] [place] [address]- 2849 Jan, [facility] [address] [id number] [place] [address]- 1320 Jan, [facility] [address] [id number] [place] [address]- 9343 Dec, [facility] [address] [id number] [place] [address]- 5329 October, [facility] [address] [id number] [place] [address]- 1671 October, [facility] [address] [id number] [place] [address]- 2009 October, [facility] [address] [id number] [place] [address]- 8107 October, [facility] [address] [id number] [place] [address]- 8868 October, [facility] [place] [facility] [address] [id number] [place] [address]- 2606 October, [facility] [place] [facility] [address] [id number] [place] [address]- 0322 Sep, [facility] [place] [facility] [address] [id number] [place] [address]- 7722 Sep, [facility] [place] [facility] [address] [id number] [place] [address]- 6264 Jul, [facility] [place] [facility] [address] [id number] [place] [address]- 4988 Jun, [facility] [place] [facility] [address] [id number] [place] [address] Jun, [facility] [place] [facility] [address] [id number] [place] [address]- 2443 16 Jun, 2012 [facility] [place] [facility] [address] [id number] [place] [address]- 0472 May, [facility] [place] [facility] [address] [id number] [place] [address]- 1218 May, [facility] [place] [facility] [address] [id number] [place] [address]- 0258 May, [facility] [place] [facility] [address] [id number] [place] [address] May, [facility] [place] [facility] [address] [id number] [place] [address] May, [facility] [place] [facility] [address] [id number] [place] [address] May, [facility] [place] [facility] [address] [id number] [address] Mar, [facility] [place] [facility] [address] [id number] [place] [address] Mar, [facility] [place] [facility] [address] [id number] [place] [address] Mar, [facility] [place] [facility] [address] [id number] [place] [address] Mar, [facility] [place] [facility] [address] [id number] [place] [address] Feb, [facility] [place] [facility] [id number] [address] Dec, [facility] [id number] [address] Dec, [facility] [id number] [address] Dec, [facility] [id number] [address] Nov, [facility] [id number] [address] Nov, [facility] [id number] [place] [address] Nov, [facility] [id number] [address] Nov, [facility] [id number] [address] Aug, [facility] [id number] [address] Jun, [facility] [id number] [address] May, [facility] [id number] [address] Apr, [facility] [id number] [address] Mar, [facility] [id number] [address] [address] May, IMMUNIZATIONS No Known Immunizations SOCIAL HISTORY Never Assessed REASON FOR VISIT Chantix-non coverage PLAN OF CARE VITAL SIGNS MEDICATIONS Unknown Medications RESULTS No Results PROCEDURES No Known procedures [...]
--- OUTSIDE RECORDS SUMMARY | 2018-05-13 07:33 | XMS REPORT ---
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 Name Role Phone PRECIOUS BOTELLO Unavailable PROBLEMS Type Condition ICD9-CM Code AXB57-NE Code Onset Dates Condition Status SNOMED Code Problem Status post closed fracture of hip Z87.81 Active 534707786 Problem Dementia in other diseases classified elsewhere without behavioral disturbance F02.80 Active 720885254 Problem Type 2 diabetes mellitus with other circulatory complication, without long-term current use of insulin E11.59 Active 04686833 Problem Panlobular emphysema J43.1 Active 8750711 Problem Enlarged prostate with lower urinary tract symptoms N40.1 Active [id number] Problem Benign prostatic hyperplasia with lower urinary tract symptoms N40.1 Active 713809715 Problem Polydipsia R63.1 Active 10985150 Problem Depression F32.9 Active 40411810 Problem Type 2 diabetes mellitus with hyperglycemia E11.65 Active 529926790759809 Problem HTN (hypertension) I10 Active 85979158 Problem Bipolar disorder, unspecified F31.9 Active 16914334 Problem Acute left-sided low back pain with left-sided sciatica M54.42 Active 770533819 Problem Low back pain, unspecified back pain laterality, with sciatica presence unspecified M54.5 Active 607965231 Problem 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 Active 67006612 Problem Type 2 diabetes mellitus with diabetic polyneuropathy E11.42 Active 431827300 Problem GERD with esophagitis K21.0 Active 579841962 Problem Status post partial amputation of left foot Z89.432 Active 341983401 Problem Hammer toe, unspecified laterality M20.40 Active 742826079 Problem Tinea pedis, unspecified laterality B35.3 Active 4227997 Problem Other Alzheimers disease G30.8 Active 06884208 Problem Peripheral vascular disease due to secondary diabetes E13.51 Active 7264275 Problem Severe pain R52 Active 04147362 ALLERGIES No Information ENCOUNTERS Encounter Location Date Diagnosis [facility] [address] [address] Feb, [facility] [place] [address] [place] [id number] Jan, Acute left-sided low back pain with left-sided sciatica M54.42 [place] [id number] [place] [address] Jan, Arthralgia, unspecified joint M25.[address] [facility] [address] [id number] Jan, Left hip pain M25.552 ; Acute pain of left knee M25.562 and Tobacco abuse Z72.0 [place] [id number] [place] [address]35- 1512 Jan, [facility] [place] [address] [place] [id number] Jan, Tobacco abuse Z72.0 [facility] [id number] [place] [address]160- 7926 Dec, [facility] [id number] [place] [address] 72104- 0327 Dec, Arthralgia, unspecified joint M25.50 [facility] [address] [address] Dec, [facility] [id number] [place] [address]- [address]92 Dec, [facility] [id number] Dec, Dementia in other diseases classified elsewhere without behavioral disturbance F02.80 ; Peripheral vascular disease due to secondary diabetes E13.51 and 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 [facility] [address], [place] [address] Nov, Arthralgia, unspecified joint M25.50 [facility] [id number] [address] Nov, [facility] [id number] [place] [address] 73705- 9996 October, Arthralgia, unspecified joint M25.50 [facility] [address] [place] [id number] October, Arthralgia, unspecified joint M25.50 [facility] [address] [place] [id number] Sep, Weakness R53.1 ; Panlobular emphysema J43.1 ; Bipolar disorder, unspecified F31.9 ; Benign prostatic hyperplasia with lower urinary tract symptoms N40.1 and Frequency of micturition R35.0 [facility] [id number] [place] [address] 22133- 8526 Sep, [facility] [id number] [place] [address] 83208- [address]806 Aug, [facility] [id number] Jul, Dementia in other diseases classified elsewhere without behavioral disturbance F02.80 [facility] [id number] [place] [id number] Jul, [facility] [address] [place] [address] 77134- 5236 Jun, Bipolar disorder, unspecified F31.9 [facility] [address] [place] [id number] Jun, Pneumonia due to infectious organism, unspecified laterality, unspecified part of lung J18.9 [facility] [address] [place] [address] 2546 Jun, [facility] [id number] [place] [id number] Jun, [facility] [address] [id number] Apr, Type 2 diabetes mellitus with other circulatory complication, without long -term current use of insulin E11.59 [place] [address] [facility] [id number] [address] Apr, [place] [id number] [id number] Feb, [place] [id number] [id number] Feb, [facility] [address] [id number] Feb, Sore throat J02.9 and Polyuria R35.8 [place] [id number] [id number] Jan, [facility]chitis J40 [facility] [id number] Dec, Cervicalgia M54.2 [place] [id number] [address]46 October, Acute left-sided low back pain with left-sided sciatica M54.42 and Cervicalgia M54.2 [place] [id number] [address] Sep, Acute left-sided low back pain with left-sided sciatica M54.42 [place] [id number] [address] Sep, Cervicalgia M54.[address] [id number] Sep, Cervicalgia M54.2 and Acute left-sided low back pain with left-sided sciatica M54.42 [place] [address] [id number] [id number] Sep, [facility] [id number] Jul, Type 2 diabetes mellitus with hyperglycemia E11.65 ; Bipolar disorder F31.9 ; 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 ; Peripheral vascular disease due to secondary diabetes E13.51 and Status post partial amputation of left foot Z89.432 [place] [address], [place] [address] Mar, [facility] [address], [place] [address] 3[address] Mar, [facility] [address], [place] [address] Mar, [facility] [id number] Mar, Dementia in other diseases classified elsewhere without behavioral disturbance F02.80 ; Polydipsia R63.1 ; HTN (hypertension) I10 ; Hypo- osmolality and hyponatremia E87.1 ; Type 2 diabetes mellitus with other circulatory complication, without long-term current use of insulin E11.59 ; Peripheral vascular disease due to secondary diabetes E13.51 and Bipolar disorder, unspecified F31.9 [facility] [address], [place] [address] Feb, [facility] [address], [place] [address] 47[address] Jan, [facility] [address], [place] [address] 15[address] Jan, [facility] [address] [place] [id number] Jan, Pain of left hip joint M25.552 ; Tobacco abuse Z72.0 and Polydipsia R63.1 [facility] [address], [place] [address] Jan, [facility] [address], [place] [address] 1381 Jan, [facility] [address], [place] [address] 2330 Dec, [facility] [id number] [address] 69[address] Dec, [facility] [address] [place] [id number] Dec, Status post partial amputation of left foot Z89.432 and Peripheral vascular disease due to secondary diabetes E13.51 [facility] [address], [place] [address] 9311 Dec, [facility] [address], [place] [address] 5486 Dec, [facility] [address], [place] [address]- 2644 Dec, [facility] [address], [place] [address]- 3078 Nov, [facility] [address], [place] [address] 3[address] Nov, [facility] [address] [place] [id number] Nov, Severe pain R52 and Status post closed fracture of hip Z87.81 [facility] [address], [place] [address] 3254 Nov, [facility] [address], [place] [address] Nov, [facility] [address], [place] [address]- 2046 October, Severe pain R52 [facility] [address], [place] [address]- 1474 October, [facility] [address], [place] [address]- 6922 October, Other Alzheimers disease G30.8 and Dementia in other diseases classified elsewhere without behavioral disturbance F02.80 [facility] [address], [place] [address] 45[address] Sep, [facility] [address], [place] [address] 9[address] Aug, [facility] [address] [place] [id number] Aug, Status post partial amputation of left foot Z89.432 ; 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 and Peripheral vascular disease due to secondary diabetes E13.51 [facility] [address] [place] [address] 88313- 3196 Jun, [facility] [address], [place] [address]- 1836 Jun, [facility] [address] [place] [address] Jun, 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 and Status post partial amputation of left foot Z89.432 [facility] [address] [place] [id number] May, Peripheral vascular disease due to secondary diabetes E13.51 ; Status post partial amputation of left foot Z89.432 and 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 [place] [address], [place] [address] 2707 Mar, Gangrene associated with type II diabetes mellitus E11.52 [place] [address] [place] [address] 52494- 5969 Mar, [facility] [address] [place] [id number] Mar, [place] [address] [place] [address] 63023- 0707 Feb, Nicotine abuse 305.1 [place] [id number] [place] [address] 47986- 8448 Feb, [facility] [address] [place] [address] 42926- 2547 Feb, [place] [id number] [place] [address] 05431- 2978 Jan, [place] [id number] [place] [address] 18096- 8730 Jan, Diabetes 250.00 ; Peripheral vascular disease 443.9 and Bipolar affective disorder 296.80 [place] [id number] [place] [address] [place] [address] 9643 Dec, [facility] [address], [place] [address]- 7153 Dec, [facility] [address], [place] [address]- 5449 Dec, [facility] [address], [place] [address]- 0360 Dec, [facility] [id number] [address]- 9183 Dec, Diabetes mellitus without mention of complication, type II or unspecified type, uncontrolled 250.02 and Vertigo 780.4 [facility] [address], [place] [address]- 1685 Nov, [facility] [address], [place] [address]- 4616 October, Follow-up examination V67.9 ; Diabetes mellitus without mention of complication, type II or unspecified type, uncontrolled 250.02 and Upper respiratory infection 465.9 [facility] [address], [place] [address]- 2796 October, [facility] [address], [place] [address]- 9185 Sep, [facility] [address], [place] [address]- 6059 Sep, [facility] [address], [place] [address]- 4513 Aug, [facility] [address], [place] [address]- 8940 Aug, [facility] [address], [place] [address]- 8414 Aug, [facility] [id number] [address]- 5225 Jul, [facility] [address] [place] [address]- 8811 Jul, 2014 [facility] [place] [facility] [address] [id number] [place] [address]- 8206 Jul, 2014 [facility] [place] [facility] [address] [id number] [place] [address]- 3086 Jul, 2014 [facility] [place] [facility] [address] [id number] [place] [address]- 3985 May, [facility] [place] [facility] [address] [id number] [place] [address]- 6635 May, [facility] [place] [facility] [address] [id number] [place] [address]- 9049 May, [facility] [place] [facility] [address] [id number] [place] [address]- 3411 May, [facility] [place] [facility] [address] [id number] [place] [address]- 4835 Apr, [facility] [place] [facility] [address] [id number] [place] [address]- 5867 Apr, [facility] [place] [facility] [address] [id number] [place] [address]- 4094 Mar, [facility] [place] [facility] [address] [facility] [id number] [place] 4966 Mar, [facility] [place] [facility] [address] [id number] [place] [address]- 0630 Mar, [facility] [place] [facility] [address] [id number] [place] [address]- 7166 Mar, [facility] [place] [facility] [address] [id number] [place] [address]- 4814 29 Feb, 2014 [facility] [place] [facility] [address] [id number] [place] [address]- 6 29 Feb, 2014 [facility] [place] [facility] [address] [id number] [place] [address]- 7850 23 Sep, 2013 [facility] [place] [facility] [address] [id number] [place] [address]- 4735 23 Sep, 2013 [facility] [place] [facility] [address] [id number] [place] [address]- 9564 22 Sep, 2013 [facility] [place] [facility] [address] [id number] [place] [address]- 4815 22 Sep, 2013 [facility] [place] [facility] [address] [id number] [place] [address]- 2953 16 Sep, 2013 [facility] [place] [facility] [address] [id number] [place] [address]- 2503 16 Sep, 2013 [facility] [place] [facility] [address] [id number] [place] [address]- 2732 16 Sep, 2013 [facility] [place] [facility] [address] [id number] [place] [address]- 2840 16 Sep, 2013 [facility] [place] [facility] [address] [id number] [place] [address]- 1214 16 Sep, 2013 [facility] [place] [facility] [address] [id number] [place] [address]- 5196 16 Sep, 2013 [facility] [place] [facility] [address] [id number] [place] [address]- 1014 11 Sep, 2013 [facility] [place] [facility] [address] [id number] [address]- 5273 11 Sep, 2013 [facility] [place] [facility] [address] [id number] [address]- 2371 10 Sep, 2013 [facility] [place] [facility] [address] [id number] [place] [address]- 2548 10 Sep, 2013 [facility] [place] [facility] [address] [id number] [place] [address]- 9064 07 Sep, 2013 [facility] [place] [facility] [address] [id number] [place] [address]- 3042 04 Sep, 2013 [facility] [place] [facility] [address] [id number] [place] [address]- 9610 Feb, [facility] [place] [facility] [address] [id number] [place] [address]- 7130 Feb, [facility] [place] [facility] [address] [id number] [place] 9480 Feb, [facility] [place] [facility] [address] [id number] [place] [address]- 7617 Jan, [facility] [place] [facility] [address] [id number] [place] [address]- 7689 Jan, [facility] [place] [facility] [address] [id number] [place] [address]- 7361 Jan, [facility] [place] [facility] [address] [id number] [place] [address]- 0465 Jan, [facility] [place] [facility] [address] [id number] [place] [address]- 6845 Nov, [facility] [place] [facility] [address] [id number] [place] [address]- 9071 Nov, [facility] [place] [facility] [address] [id number] [place] [address]- 3721 October, [facility] [place] [facility] [address] [id number] [place] [address]- 6251 October, [facility] [place] [facility] [address] [id number] [place] [address]- 0592 October, [facility] [place] [facility] [address] [id number] [place] [address]- 8243 October, [facility] [place] [facility] [address] [id number] [place] [address]- 5394 October, [facility] [place] [facility] [address] [id number] [place] [address]- 2144 October, [facility] [place] [facility] [address] [id number] [place] [address]- 7774 October, [facility] [place] [facility] [address] [id number] [place] [address]- 8532 October, [facility] [place] [facility] [address] [id number] [place] [address]- 1039 Sep, [facility] [place] [facility] [address] [id number] [place] [address]- 0103 Sep, [facility] [place] [facility] [address] [id number] [place] [address]- 8689 Sep, [facility] [place] [facility] [address] [id number] [place] [address]- 2030 Sep, [facility] [place] [facility] [address] [id number] [place] [address]- 0018 Jul, [facility] [place] [facility] [address] [id number] [place] [address]- 3724 Jul, [facility] [place] [facility] [address] [id number] [place] [address]- 8228 May, [facility] [place] [facility] [address] [id number] [place] [address]- 2559 May, [facility] [place] [facility] [address] [id number] [place] [address]- 8505 Apr, [facility] [place] [facility] [address] [id number] [place] [address]- 4009 Apr, [facility] [place] [facility] [address] [id number] [place] [address]- 2508 Apr, [facility] [place] [facility] [address] [id number] [place] [address]- 0093 Apr, [facility] [place] [facility] [address] [id number] [place] [address]- 4521 Mar, [facility] [place] [facility] [address] [id number] [place] [address]- 1646 Mar, [facility] [place] [facility] [address] [id number] [place] [address]- 6366 Mar, [facility] [address] [id number] [place] [address]- 6463 Mar, [facility] [place] [facility] [address] [id number] [place] [address]- 7986 Feb, [facility] [address] [id number] [place] [address]- 0760 Jan, [facility] [place] [facility] [address] [id number] [place] [address]- 5726 Jan, [facility] [place] [facility] [address] [id number] [place] [address]- 9988 Jan, [facility] [place] [facility] [address] [id number] [place] [address]- 9670 Dec, [facility] [address] [id number] [place] [address]- 0055 October, [facility] [place] [facility] [address] [id number] [place] [address]- 1728 October, [facility] [address] [id number] [place] [address]- 6904 October, [facility] [place] [facility] [address] [id number] [place] [address]- 2288 October, [facility] [address] [id number] [place] [address]- 0318 October, [facility] [place] [facility] [address] [id number] [place] [address] 2548 October, [facility] [place] [facility] [address] [id number] [place] [address]- 9504 Sep, [facility] [place] [facility] [address] [id number] [place] [address]- 5344 Sep, [facility] [place] [facility] [address] [id number] [place] [address]- 0362 Jul, [facility] [place] [facility] [address] [id number] [place] [address]- 8072 31 Jun, 2012 [facility] [address] [id number] [place] [address]- 0604 Jun, [facility] [place] [facility] [address] [id number] [place] [address]- 8726 Jun, [facility] [address] [id number] [place] [address]- 8936 May, [facility] [place] [facility] [address] [id number] [place] [address]- 3841 May, [facility] [address] [id number] [place] [address]- 1126 May, [facility] [place] [facility] [address] [id number] [place] [address]- 4635 May, [facility] [place] [facility] [address] [id number] [place] [address]- 6460 May, [facility] [address] [id number] [place] [address]- 5365 May, [facility] [place] [facility] [address] [id number] [place] [address]- 3968 Mar, [facility] [place] [facility] [address] [id number] [place] 3[address] Mar, [facility] [place] [facility] [address] [id number] [place] [address]- 9262 Mar, [facility] [place] [facility] [address] [id number] [place] [address]- 8007 Mar, [facility] [place] [facility] [address] [id number] [place] [address]- 8772 Feb, [facility] [place] [facility] [address] [id number] [place] [address]- 2546 Dec, [facility] [place] [facility] [address] [id number] [place] [address] Dec, [facility] [address] [facility] [id number] [address] Dec, [facility] [address] [facility] [id number], [place] [address] Nov, [facility] [address] [facility] [id number], [place] [address] Nov, [facility] [address] [facility] [id number] [address] Nov, [facility] [address] [facility] [id number] [address] Nov, [facility] [address] [facility] [id number], [place] [address] Aug, [facility] [id number] [address] Jun, [facility] [id number] [address] May, [facility] [address] [id number] [address] Apr, [facility] [address] [id number] [address] Mar, [facility] [address] [id number] [address] May, IMMUNIZATIONS No Known Immunizations SOCIAL HISTORY Never Assessed REASON FOR VISIT Wanting to quit smoking PLAN OF CARE VITAL SIGNS MEDICATIONS Unknown [...]
--- OUTSIDE RECORDS SUMMARY | 2018-05-13 07:33 | XMS REPORT ---
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 Name Role Phone PRECIOUS BOTELLO Unavailable PROBLEMS Type Condition ICD9-CM Code SDA41-LJ Code Onset Dates Condition Status SNOMED Code Problem Status post closed fracture of hip Z87.81 Active 416204029 Problem Dementia in other diseases classified elsewhere without behavioral disturbance F02.80 Active 630428053 Problem Type 2 diabetes mellitus with other circulatory complication, without long-term current use of insulin E11.59 Active 71263179 Problem Panlobular emphysema J43.1 Active 5034562 Problem Enlarged prostate with lower urinary tract symptoms N40.1 Active 205687917049392 Problem Benign prostatic hyperplasia with lower urinary tract symptoms N40.1 Active 017743512 Problem Polydipsia R63.1 Active 70198625 Problem Depression F32.9 Active 49182980 Problem Type 2 diabetes mellitus with hyperglycemia E11.65 Active 749253349544776 Problem HTN (hypertension) I10 Active 50311079 Problem Bipolar disorder, unspecified F31.9 Active 78155016 Problem Acute left-sided low back pain with left-sided sciatica M54.42 Active 954029226 Problem Low back pain, unspecified back pain laterality, with sciatica presence unspecified M54.5 Active 946609230 Problem 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 Active 12068009 Problem Type 2 diabetes mellitus with diabetic polyneuropathy E11.42 Active 130402986 Problem GERD with esophagitis K21.0 Active 468191658 Problem Status post partial amputation of left foot Z89.432 Active 118593249 Problem Hammer toe, unspecified laterality M20.40 Active 324781943 Problem Tinea pedis, unspecified laterality B35.3 Active 9384617 Problem Other Alzheimers disease G30.8 Active 86450009 Problem Peripheral vascular disease due to secondary diabetes E13.51 Active 0586455 Problem Severe pain R52 Active 71438793 ALLERGIES No Information ENCOUNTERS Encounter Location Date Diagnosis [facility] [address] [id number] Jan, Acute left-sided low back pain with left-sided sciatica M54.42 [facility] [id number] [place] [address] 68145- 5834 Jan, Arthralgia, unspecified joint M25.[address] [id number] Jan, Left hip pain M25.552 ; Acute pain of left knee M25.562 and Tobacco abuse Z72.0 [place] [address] [address] Jan, [facility] [id number] Jan, Tobacco abuse Z72.0 [place] [id number] [place] [address] 56051- 1850 Dec, [facility] [id number] [place] [address] 02628- 0576 Dec, Arthralgia, unspecified joint M25.50 [place] [id number] [place] [address] 58589- 6333 Dec, [facility] [id number] [place] [address] 24427- 0788 Dec, [facility] [address] [id number] Dec, Dementia in other diseases classified elsewhere without behavioral disturbance F02.80 ; Peripheral vascular disease due to secondary diabetes E13.51 and 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 [facility] [id number] [place] [address] 09698- 3953 Nov, Arthralgia, unspecified joint M25.50 [facility] [id number] [place] [address] 56182- 0111 Nov, [facility] [address] [place] [address] 8056 October, Arthralgia, unspecified joint M25.50 [facility] [address] [id number] October, Arthralgia, unspecified joint M25.50 [facility] [address] [id number] Sep, Weakness R53.1 ; Panlobular emphysema J43.1 ; Bipolar disorder, unspecified F31.9 ; Benign prostatic hyperplasia with lower urinary tract symptoms N40.1 and Frequency of micturition R35.0 [place] [id number] [place] [address] 18298- 1126 Sep, [place] [id number] [place] [address] 02301- 9426 Aug, [facility] [address] [id number] Jul, Dementia in other diseases classified elsewhere without behavioral disturbance F02.80 [place] [id number] [place] [address] [id number] Jul, [place] [id number] [place] [address] 14911803- 2333 Jun, Bipolar disorder, unspecified F31.[address] [id number] Jun, Pneumonia due to infectious organism, unspecified laterality, unspecified part of lung J18.9 [place] [id number] [place] [address] 22401- 5865 Jun, [facility] [id number] [place] [address] [id number] Jun, [facility] [id number] 16 Apr, 2017 Type 2 diabetes mellitus with other circulatory complication, without long -term current use of insulin E11.59 [place] [id number] [place] [address] 44611- 7510 Apr, [facility] [address] [id number] [id number] Feb, [place] [id number] [id number] Feb, [facility] [address] [id number] Feb, Sore throat J02.9 and Polyuria R35.8 [place] [id number] [id number] Jan, Bronchitis J40 [facility] [address] [id number] Dec, Cervicalgia M54.2 [place] [address] [address]- 6066 October, Acute left-sided low back pain with left-sided sciatica M54.42 and Cervicalgia M54.2 [place] [address] [place] [address] 36695- 9206 Sep, Acute left-sided low back pain with left-sided sciatica M54.42 [place] [id number] [place] [address] [id number] Sep, Cervicalgia M54.[address] [facility] [address] [id number] Sep, Cervicalgia M54.2 and Acute left-sided low back pain with left-sided sciatica M54.42 [place] [id number] [place] [address] [id number] Sep, [facility] [address] [id number] Jul, Type 2 diabetes mellitus with hyperglycemia E11.65 ; Bipolar disorder F31.9 ; 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 ; Peripheral vascular disease due to secondary diabetes E13.51 and Status post partial amputation of left foot Z89.432 [place] [id number] [address] 1550 Mar, [place] [address] [address]- 8705 Mar, [place] [id number] [place] [address] 00358- 6530 Mar, [facility] [address] [id number] Mar, Dementia in other diseases classified elsewhere without behavioral disturbance F02.80 ; Polydipsia R63.1 ; HTN (hypertension) I10 ; Hypo- osmolality and hyponatremia E87.1 ; Type 2 diabetes mellitus with other circulatory complication, without long-term current use of insulin E11.59 ; Peripheral vascular disease due to secondary diabetes E13.51 and Bipolar disorder, unspecified F31.9 [place] [address] [address]- 7661 Feb, [place] [address] [address]- 0889 Jan, [place] [address] [address]- 9274 Jan, [facility] [address] [id number] Jan, Pain of left hip joint M25.552 ; Tobacco abuse Z72.0 and Polydipsia R63.1 [place] [address] [address]- 3810 Jan, [place] [address], [place] [address]- 0110 Jan, [place] [address] [address]- 0483 Dec, [place] [id number] [place] [address] 44898- 5400 Dec, [facility] [address] [id number] Dec, Status post partial amputation of left foot Z89.432 and Peripheral vascular disease due to secondary diabetes E13.51 [place] [address] [address]- 4563 Dec, [facility] [address], [place] [address]- 2864 Dec, [facility] [address], [place] [address]- 0308 Dec, [facility] [address], [place] [address]- 3341 Nov, [facility] [address], [place] [address]- 7699 Nov, [facility] [address] [id number] Nov, Severe pain R52 and Status post closed fracture of hip Z87.81 [facility] [address], [place] [address]- 0096 Nov, [facility] [address] [address]- 7374 Nov, [facility] [address], [place] [address]- 2292 October, Severe pain R52 [facility] [address], [place] [address]- 5930 October, [facility] [address] [id number], [place] [address]- 4942 October, Other Alzheimers disease G30.8 and Dementia in other diseases classified elsewhere without behavioral disturbance F02.80 [facility] [address] [id number] [address]- 9782 Sep, [facility] [address], [place] [address]- 6524 Aug, [facility] [address] [id number] Aug, Status post partial amputation of left foot Z89.432 ; 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 and Peripheral vascular disease due to secondary diabetes E13.51 [facility] [address] [address]- 4047 Jun, [facility] [id number] [place] [address] 28044- 6820 Jun, [facility] [address] [place] [id number] Jun, 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 and Status post partial amputation of left foot Z89.432 [facility] [address] [address] May, Peripheral vascular disease due to secondary diabetes E13.51 ; Status post partial amputation of left foot Z89.432 and 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 [place] [id number] [place] [address] 47907- 9005 Mar, Gangrene associated with type II diabetes mellitus E11.52 [facility] [id number] [place] [address] 41326- 7580 Mar, [facility] [address] [id number] Mar, [facility] [id number] [place] [address] 75950- 7166 Feb, Nicotine abuse 305.1 [facility] [id number] [place] [address] 71499- 5269 Feb, [facility] [id number] [place] [address] 94310- 5494 Feb, [facility] [id number] [place] [address] 18578- 0457 Jan, [facility] [id number] [place] [address] 48602- 8965 Jan, Diabetes 250.00 ; Peripheral vascular disease 443.9 and Bipolar affective disorder 296.80 [facility] [address] [place] [address] 56254- 7858 Dec, [facility] [id number] [place] [address] [place] [address]- 7592 Dec, [facility] [address] [address]- 8034 Dec, [facility] [address], [place] [address]- 2593 Dec, [facility] [address], [place] [address]- 0161 Dec, Diabetes mellitus without mention of complication, type II or unspecified type, uncontrolled 250.02 and Vertigo 780.4 [facility] [address], [place] [address]- 0994 Nov, [facility] [id number] 7448 October, Follow-up examination V67.9 ; Diabetes mellitus without mention of complication, type II or unspecified type, uncontrolled 250.02 and Upper respiratory infection 465.9 [facility] [address], [place] [address]- 8032 October, [facility] [address], [place] [address]- 8566 Sep, [facility] [address] [address]- 2977 Sep, [facility] [address], [place] [address]- 5086 Aug, [facility] [address], [place] [address]- 8293 Aug, [facility] [address] [address]- 2292 Aug, [facility] [address], [place] [address]- 8998 Jul, [facility] [address] [address]- 0504 Jul, [facility] [address] [id number] [place] [address]- 2611 Jul, [facility] [place] [facility] [address] [id number] [place] [address]- 8703 Jul, [facility] [place] [facility] [address] [id number] [place] [address]- 8937 May, [facility] [place] [facility] [address] [id number] [place] [address]- 1746 May, [facility] [place] [facility] [address] [id number] [place] [address]- 3480 May, [facility] [place] [facility] [address] [id number] [place] [address]- 1984 May, [facility] [place] [facility] [address] [id number] [place] [address]- 3442 Apr, [facility] [place] [facility] [address] [id number] [place] [address]- 1000 Apr, [facility] [place] [facility] [address] [id number] [place] [address]- 1151 Mar, [facility] [place] [facility] [address] [id number] [place] [address]- 2780 Mar, [facility] [place] [facility] [address] [facility] [id number] [place] [address]- 5768 Mar, [facility] [place] [facility] [address] [id number] [place] [address]- 6786 Mar, [facility] [place] [facility] [address] [id number] [place] [address]- 9758 29 Feb, 2014 [facility] [place] [facility] [address] [id number] [place] [address]- 2058 29 Feb, 2014 [facility] [place] [facility] [address] [id number] [place] [address]- 5137 Feb, [facility] [place] [facility] [address] [id number] [place] [address]- 8896 23 Sep, 2013 [facility] [place] [facility] [address] [id number] [place] [address]- 5273 22 Sep, 2013 [facility] [place] [facility] [address] [id number] [place] [address]- 4423 22 Sep, 2013 [facility] [place] [facility] [address] [id number] [place] [address]- 8794 16 Sep, 2013 [facility] [place] [facility] [address] [id number] [place] [address]- 2544 16 Sep, 2013 [facility] [place] [facility] [address] [id number] [place] [address]- 2641 16 Sep, 2013 [facility] [place] [facility] [address] [id number] [place] [address]- 9123 16 Sep, 2013 [facility] [place] [facility] [address] [id number] [place] [address]- 2922 16 Sep, 2013 [facility] [place] [facility] [address] [id number] [place] [address]- 0003 16 Sep, 2013 [facility] [place] [facility] [address] [id number] [place] [address]- 1350 11 Sep, 2013 [facility] [place] [facility] [address] [id number] [place] [address]- 4116 11 Sep, 2013 [facility] [place] [facility] [address] [id number], [place] [address]- 1875 10 Sep, 2013 [facility] [place] [facility] [address] [id number], [place] [address]- 3659 10 Sep, 2013 [facility] [place] [facility] [address] [id number] [place] [address]- 1816 07 Sep, 2013 [facility] [place] [facility] [address] [id number] [place] [address]- 7477 04 Sep, 2013 [facility] [place] [facility] [address] [id number] [place] [address]- 9988 04 Sep, 2013 [facility] [place] [facility] [address] [id number] [place] [address]- 8333 Feb, [facility] [place] [facility] [address] [id number] [place] [address]- 2168 Feb, [facility] [place] [facility] [address] [id number] [place] [address]- 2879 Jan, [facility] [place] [facility] [address] [id number] [place] [address]- 3083 Jan, [facility] [place] [facility] [address] [id number] [place] [address]- 9767 Jan, [facility] [place] [facility] [address] [id number] [place] [address]- 7559 Jan, [facility] [place] [facility] [address] [id number] [place] [address]- 5578 Nov, [facility] [place] [facility] [address] [id number] [place] [address]- 6327 Nov, [facility] [place] [facility] [address] [id number] [place] [address]- 3799 October, [facility] [place] [facility] [address] [id number] [place] [address]- 8961 October, [facility] [place] [facility] [address] [id number] [place] [address]- 1154 October, [facility] [place] [facility] [address] [id number] [place] [address]- 8249 October, [facility] [place] [facility] [address] [id number] [place] [address]- 9040 October, [facility] [place] [facility] [address] [id number] [place] [address]- 3706 October, [facility] [place] [facility] [address] [id number] [place] [address]- 4999 October, [facility] [place] [facility] [address] [id number] [place] 3839 October, [facility] [place] [facility] [address] [id number] [place] [address]- 1607 Sep, [facility] [place] [facility] [address] [id number] [place] [address]- 5194 Sep, [facility] [place] [facility] [address] [id number] [place] [address]- 9044 Sep, [facility] [place] [facility] [address] [id number] [place] [address]- 5539 Sep, [facility] [place] [facility] [address] [id number] [place] [address]- 7072 Jul, [facility] [place] [facility] [address] [id number] [place] [address]- 4958 Jul, [facility] [place] [facility] [address] [id number] [place] [address]- 2285 May, [facility] [place] [facility] [address] [id number] [place] [address]- 9637 May, [facility] [place] [facility] [address] [id number] [place] [address]- 7280 Apr, [facility] [place] [facility] [address] [id number] [place] [address]- 6153 Apr, [facility] [place] [facility] [address] [id number] [place] [address]- 8129 Apr, [facility] [place] [facility] [address] [id number] [place] [address]- 1899 Apr, [facility] [place] [facility] [address] [id number] [place] [address]- 0132 Mar, [facility] [place] [facility] [address] [id number] [place] [address]- 2401 Mar, [facility] [place] [facility] [address] [id number] [place] [address]- 5330 Mar, [facility] [place] [facility] [address] [id number] [place] [address]- 2856 Mar, [facility] [address] [id number] [place] [address]- 2384 Feb, [facility] [place] [facility] [address] [id number] [place] [address]- 3485 Jan, [facility] [address] [id number] [place] [address]- 2897 Jan, [facility] [place] [facility] [address] [id number] [place] [address]- 7805 Jan, [facility] [place] [facility] [address] [id number] [place] [address]- 6628 Dec, [facility] [place] [facility] [address] [id number] [place] [address]- 2108 October, [facility] [address] [id number] [place] [address]- 1188 October, [facility] [place] [facility] [address] [id number] [place] [address]- 1857 October, [facility] [address] [id number] [place] [address]- 8809 October, [facility] [place] [facility] [address] [id number] [place] [address]- 5533 October, [facility] [address] [id number] [place] [address]- 1309 October, [facility] [place] [facility] [address] [id number] [place] [address]- 6620 Sep, [facility] [place] [facility] [address] [id number] [place] [address]- 5107 Sep, [facility] [place] [facility] [address] [id number] [place] [address]- 7250 Jul, [facility] [place] [facility] [address] [id number] [place] [address]- 4063 Jun, [facility] [place] [facility] [address] [id number] [place] [address]- 9359 Jun, [facility] [address] [id number] [place] [address]- 8058 Jun, [facility] [place] [facility] [address] [id number] [place] [address]- 1845 May, [facility] [place] [facility] [address] [id number] [place] [address]- 7332 May, [facility] [place] [facility] [address] [id number] [place] [address]- 5025 May, [facility] [place] [facility] [address] [id number] [place] [address]- 9122 May, [facility] [place] [facility] [address] [id number] [place] 7407 May, [facility] [place] [facility] [address] [id number] [place] [address]- 4559 May, [facility] [address] [id number] [place] [address]- 1472 Mar, [facility] [place] [facility] [address] [id number] [place] [address]- 3912 Mar, [facility] [place] [facility] [address] [id number] [place] 7599 Mar, [facility] [place] [facility] [address] [id number] [place] [address]- 8460 Mar, [facility] [place] [facility] [address] [id number] [place] [address]- 2032 Feb, [facility] [place] [facility] [address] [id number] [place] [address]- 7316 Dec, [facility] [place] [facility] [address] [id number] [place] [address]- 2546 Dec, [facility] [place] [facility] [address] [id number] [place] [address]- 2546 Dec, [facility] [address] [id number], [place] [address]- 0261 Nov, [facility] [address] [facility] [id number], [place] [address]- 4353 Nov, [facility] [address], [place] [address]- 4847 Nov, [facility] [address] [facility] [id number], [place] [address] Nov, [facility] [id number] [address] Aug, [facility] [id number], [place] [address] Jun, [facility] [id number], [place] [address] May, [facility] [id number], [place] [address] Apr, [facility] [id number], [place] [address] Mar, [facility] [id number], [place] [address] May, IMMUNIZATIONS No Known Immunizations SOCIAL HISTORY [...]
[2018-05-13 07:34] LABS: BILIRUBIN,URINE NEGATIVE (NEGATIVE); CLARITY,URINE VERY CLOUDY; COLOR,URINE YELLOW; GLUCOSE, URINE (UA) 2+ (NEGATIVE); KETONES,URINE 2+ (NEGATIVE); LEUKOCYTE ESTERASE ,URINE 3+ (NEGATIVE); NITRITE,URINE POSITIVE (NEGATIVE); PH,URINE 5 (5-9); PROTEIN,URINE 3+ (NEGATIVE); UROBILINOGEN,URINE 1 MG/DL (NORMAL)
--- OUTSIDE RECORDS SUMMARY | 2018-05-13 07:34 | XMS REPORT ---
Author Author PRECIOUS BOTELLO [facility] Address [address] [place] [address] Care Team Providers Care Business Process Associate Name Role Phone PRECIOUS BOTELLO Unavailable PROBLEMS Type Condition ICD9-CM Code JKO22-LP Code Onset Dates Condition Status SNOMED Code Problem Status post closed fracture of hip Z87.81 Active 062413832 Problem Dementia in other diseases classified elsewhere without behavioral disturbance F02.80 Active 779836104 Problem Type 2 diabetes mellitus with other circulatory complication, without long-term current use of insulin E11.59 Active 23745243 Problem Panlobular emphysema J43.1 Active 8756412 Problem Enlarged prostate with lower urinary tract symptoms N40.1 Active [id number] Problem Benign prostatic hyperplasia with lower urinary tract symptoms N40.1 Active 009741881 Problem Polydipsia R63.1 Active 27007524 Problem Depression F32.9 Active 95780836 Problem Type 2 diabetes mellitus with hyperglycemia E11.65 Active 952295962850592 Problem HTN (hypertension) I10 Active 08649700 Problem Bipolar disorder, unspecified F31.9 Active 08949806 Problem Acute left-sided low back pain with left-sided sciatica M54.42 Active 145297830 Problem Low back pain, unspecified back pain laterality, with sciatica presence unspecified M54.5 Active 486171163 Problem 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 Active 44551414 Problem Type 2 diabetes mellitus with diabetic polyneuropathy E11.42 Active 669665572 Problem GERD with esophagitis K21.0 Active 842382019 Problem Status post partial amputation of left foot Z89.432 Active 668517850 Problem Hammer toe, unspecified laterality M20.40 Active 346182273 Problem Tinea pedis, unspecified laterality B35.3 Active 4785985 Problem Other Alzheimers disease G30.8 Active 89745105 Problem Peripheral vascular disease due to secondary diabetes E13.51 Active 6098588 Problem Severe pain R52 Active 84924345 ALLERGIES No Information ENCOUNTERS Encounter Location Date Diagnosis [facility] [address] [id number] Jan, Acute left-sided low back pain with left-sided sciatica M54.42 [facility] [id number] [place] [address] 78466- 9733 Jan, Arthralgia, unspecified joint M25.[address] [id number] Jan, Left hip pain M25.552 ; Acute pain of left knee M25.562 and Tobacco abuse Z72.0 [place] [address] [address] Jan, [facility] [id number] Jan, Tobacco abuse Z72.0 [place] [id number] [place] [address] 65474- 4989 Dec, [facility] [id number] [place] [address] 70594- 2414 Dec, Arthralgia, unspecified joint M25.50 [place] [id number] [place] [address] 26862- 2522 Dec, [facility] [id number] [place] [address] 06784- 3166 Dec, [facility] [address] [id number] Dec, Dementia in other diseases classified elsewhere without behavioral disturbance F02.80 ; Peripheral vascular disease due to secondary diabetes E13.51 and 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 [facility] [id number] [place] [address] 34315- 2222 Nov, Arthralgia, unspecified joint M25.50 [facility] [id number] [place] [address] 67821- 6950 Nov, [facility] [address] [place] [address] October, Arthralgia, unspecified joint M25.50 [facility] [place] [id number] October, Arthralgia, unspecified joint M25.50 [facility] [address] [address] [place] [id number] Sep, Weakness R53.1 ; Panlobular emphysema J43.1 ; Bipolar disorder, unspecified F31.9 ; Benign prostatic hyperplasia with lower urinary tract symptoms N40.1 and Frequency of micturition R35.0 [place] [id number] [place] [address] 51382- 3296 Sep, [place] [id number] [place] [address] 74111- 7376 Aug, [facility] [address] [id number] Jul, Dementia in other diseases classified elsewhere without behavioral disturbance F02.80 [place] [id number] [place] [address] [id number] Jul, [place] [id number] [place] [address] 41536336- 4733 Jun, Bipolar disorder, unspecified F31.[address] [id number] Jun, Pneumonia due to infectious organism, unspecified laterality, unspecified part of lung J18.9 [place] [address] [place] [address] 41562- 1578 Jun, [facility] [id number] [place] [id number] Jun, [facility] [id number] 16 Apr, 2017 Type 2 diabetes mellitus with other circulatory complication, without long -term current use of insulin E11.59 [place] [id number] [place] [address] 09497- 6739 Apr, [facility] [address] [id number] [id number] Feb, [place] [id number] [id number] Feb, [facility] [address] [id number] Feb, Sore throat J02.9 and Polyuria R35.8 [place] [id number] [id number] Jan, Bronchitis J40 [facility] [address] [id number] Dec, Cervicalgia M54.2 [place] [address] [address] 89[address] October, Acute left-sided low back pain with left-sided sciatica M54.42 and Cervicalgia M54.2 [place] [address] [place] [address] 40157- 7216 Sep, Acute left-sided low back pain with left-sided sciatica M54.42 [place] [id number] [place] [address] [id number] Sep, Cervicalgia M54.[address] [facility] [address] [id number] Sep, Cervicalgia M54.2 and Acute left-sided low back pain with left-sided sciatica M54.42 [place] [id number] [place] [address] [id number] Sep, [facility] [address] [id number] Jul, Type 2 diabetes mellitus with hyperglycemia E11.65 ; Bipolar disorder F31.9 ; 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 ; Peripheral vascular disease due to secondary diabetes E13.51 and Status post partial amputation of left foot Z89.432 [place] [id number] [address] 8077 Mar, [place] [address] [address]- 6921 Mar, [place] [address] [place] [address] 71221- 1218 Mar, [facility] [address] [place] [id number] Mar, Dementia in other diseases classified elsewhere without behavioral disturbance F02.80 ; Polydipsia R63.1 ; HTN (hypertension) I10 ; Hypo- osmolality and hyponatremia E87.1 ; Type 2 diabetes mellitus with other circulatory complication, without long-term current use of insulin E11.59 ; Peripheral vascular disease due to secondary diabetes E13.51 and Bipolar disorder, unspecified F31.9 [place] [address] [address]- 4345 Feb, [place] [address] [address]- 8879 Jan, [place] [address] [address]- 3174 Jan, [facility] [address] [place] [id number] Jan, Pain of left hip joint M25.552 ; Tobacco abuse Z72.0 and Polydipsia R63.1 [place] [address] [address]- 0886 Jan, [place] [address] [address]- 0293 Jan, [place] [address] [address]- 3795 Dec, [place] [address] [place] [address] 24193- 5645 Dec, [facility] [address] [place] [id number] Dec, Status post partial amputation of left foot Z89.432 and Peripheral vascular disease due to secondary diabetes E13.51 [place] [address] [address]- 4305 Dec, [facility] [address] [address]- 6995 Dec, [facility] [address] [address]- 2694 Dec, [facility] [address] [address]- 3369 Nov, [facility] [address] [address]- 2717 Nov, [facility] [address] [place] [address] Nov, Severe pain R52 and Status post closed fracture of hip Z87.81 [facility] [address] [address]- 1427 Nov, [facility] [address] [address]- 3130 Nov, [facility] [address] [address]- 2144 October, Severe pain R52 [facility] [address] [address]- 8909 October, [facility] [id number] [address]- 7967 October, Other Alzheimers disease G30.8 and Dementia in other diseases classified elsewhere without behavioral disturbance F02.80 [facility] [address] [id number] [address]- 3364 Sep, [facility] [address] [address]- 9829 Aug, [facility] [address] [place] [id number] Aug, Status post partial amputation of left foot Z89.432 ; 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 and Peripheral vascular disease due to secondary diabetes E13.51 [facility] [address] [address]- 1875 Jun, [facility] [id number] [place] [address] 06689- 5573 Jun, [facility] [address] [place] [id number] Jun, 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 and Status post partial amputation of left foot Z89.432 [facility] [address] [place] [address] May, Peripheral vascular disease due to secondary diabetes E13.51 ; Status post partial amputation of left foot Z89.432 and 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 [place] [id number] [place] [address] 73767- 1128 Mar, Gangrene associated with type II diabetes mellitus E11.52 [facility] [id number] [place] [address] 67160- 5621 Mar, [facility] [address] [place] [address] Mar, [facility] [id number] [place] [address] 43531- 8476 Feb, Nicotine abuse 305.1 [facility] [id number] [place] [address] 77535- 0491 Feb, [facility] [id number] [place] [address] 81178- 4610 Feb, [facility] [id number] [place] [address] 74623- 4483 Jan, [facility] [id number] [place] [address] 73935- 7840 Jan, Diabetes 250.00 ; Peripheral vascular disease 443.9 and Bipolar affective disorder 296.80 [facility] [address] [place] [address] 87136- 2196 Dec, [facility] [id number] [place] [address] [place] [address]- 3597 Dec, [facility] [address] [address]- 3537 Dec, [facility] [address] [address]- 7744 Dec, [facility] [address] [address]- 8406 Dec, Diabetes mellitus without mention of complication, type II or unspecified type, uncontrolled 250.02 and Vertigo 780.4 [facility] [address] [address]- 3975 Nov, [facility] [id number] 9491 October, Follow-up examination V67.9 ; Diabetes mellitus without mention of complication, type II or unspecified type, uncontrolled 250.02 and Upper respiratory infection 465.9 [facility] [address] [address]- 2940 October, [facility] [address] [address]- 0505 Sep, [facility] [address] [address]- 1425 Sep, [facility] [address] [address]- 3530 Aug, [facility] [address] [address]- 4768 Aug, [facility] [address] [address]- 4805 Aug, [facility] [address] [address]- 3243 Jul, [facility] [address] [address]- 4519 Jul, [facility] [id number] [address]- 0847 Jul, [facility] [place] [facility] [address] [id number] [place] [address]- 9290 Jul, [facility] [place] [facility] [address] [id number] [place] [address]- 9588 May, [facility] [place] [facility] [address] [id number] [place] [address]- 9915 May, [facility] [place] [facility] [address] [id number] [place] [address]- 2617 May, [facility] [place] [facility] [address] [id number] [place] [address]- 5325 May, [facility] [place] [facility] [address] [id number] [place] [address]- 8714 Apr, [facility] [place] [facility] [address] [id number] [place] [address]- 3833 Apr, [facility] [place] [facility] [address] [id number] [place] [address]- 8643 Mar, [facility] [place] [facility] [address] [id number] [place] [address]- 4827 Mar, [facility] [place] [facility] [address] [facility] [id number] [place] [address]- 2134 Mar, [facility] [place] [facility] [address] [id number] [place] [address]- 6469 Mar, [facility] [place] [facility] [address] [id number] [place] [address]- 0097 29 Feb, 2014 [facility] [place] [facility] [address] [id number] [place] [address]- 3916 29 Feb, 2014 [facility] [place] [facility] [address] [id number] [place] [address]- 8520 Feb, [facility] [place] [facility] [address] [id number] [place] [address]- 9663 23 Sep, 2013 [facility] [place] [facility] [address] [id number] [place] [address]- 0245 22 Sep, 2013 [facility] [place] [facility] [address] [id number] [place] [address]- 6968 22 Sep, 2013 [facility] [place] [facility] [address] [id number] [place] [address]- 1605 16 Sep, 2013 [facility] [place] [facility] [address] [id number] [place] [address]- 2543 16 Sep, 2013 [facility] [place] [facility] [address] [id number] [place] [address]- 7510 16 Sep, 2013 [facility] [place] [facility] [address] [id number] [place] [address]- 6309 16 Sep, 2013 [facility] [place] [facility] [address] [id number] [place] [address]- 9558 16 Sep, 2013 [facility] [place] [facility] [address] [id number] [place] [address]- 6295 16 Sep, 2013 [facility] [place] [facility] [address] [id number] [place] [address]- 4637 11 Sep, 2013 [facility] [place] [facility] [address] [id number] [place] [address]- 4027 11 Sep, 2013 [facility] [place] [facility] [address] [id number] [address]- 3516 10 Sep, 2013 [facility] [place] [facility] [address] [id number] [address]- 2075 10 Sep, 2013 [facility] [place] [facility] [address] [id number] [place] [address]- 2475 07 Sep, 2013 [facility] [place] [facility] [address] [id number] [place] [address]- 1365 04 Sep, 2013 [facility] [place] [facility] [address] [id number] [place] [address]- 8638 04 Sep, 2013 [facility] [place] [facility] [address] [id number] [place] [address]- 6341 Feb, [facility] [place] [facility] [address] [id number] [place] [address]- 8837 Feb, [facility] [place] [facility] [address] [id number] [place] [address]- 2155 Jan, [facility] [place] [facility] [address] [id number] [place] [address]- 5959 Jan, [facility] [place] [facility] [address] [id number] [place] [address]- 1169 Jan, [facility] [place] [facility] [address] [id number] [place] [address]- 6232 Jan, [facility] [place] [facility] [address] [id number] [place] [address]- 4801 Nov, [facility] [place] [facility] [address] [id number] [place] [address]- 2003 Nov, [facility] [place] [facility] [address] [id number] [place] [address]- 6242 October, [facility] [place] [facility] [address] [id number] [place] [address]- 9789 October, [facility] [place] [facility] [address] [id number] [place] [address]- 0936 October, [facility] [place] [facility] [address] [id number] [place] [address]- 7236 October, [facility] [place] [facility] [address] [id number] [place] [address]- 9473 October, [facility] [place] [facility] [address] [id number] [place] [address]- 6460 October, [facility] [place] [facility] [address] [id number] [place] [address]- 1909 October, [facility] [place] [facility] [address] [id number] [place] 3847 October, [facility] [place] [facility] [address] [id number] [place] [address]- 8534 Sep, [facility] [place] [facility] [address] [id number] [place] [address]- 2762 Sep, [facility] [place] [facility] [address] [id number] [place] [address]- 3478 Sep, [facility] [place] [facility] [address] [id number] [place] [address]- 4995 Sep, [facility] [place] [facility] [address] [id number] [place] [address]- 4050 Jul, [facility] [place] [facility] [address] [id number] [place] [address]- 1092 Jul, [facility] [place] [facility] [address] [id number] [place] [address]- 0491 May, [facility] [place] [facility] [address] [id number] [place] [address]- 0973 May, [facility] [place] [facility] [address] [id number] [place] [address]- 2362 Apr, [facility] [place] [facility] [address] [id number] [place] [address]- 2528 Apr, [facility] [place] [facility] [address] [id number] [place] [address]- 7230 Apr, [facility] [place] [facility] [address] [id number] [place] [address]- 5675 Apr, [facility] [place] [facility] [address] [id number] [place] [address]- 8388 Mar, [facility] [place] [facility] [address] [id number] [place] [address]- 4752 Mar, [facility] [place] [facility] [address] [id number] [place] [address]- 2506 Mar, [facility] [place] [facility] [address] [id number] [place] [address]- 8376 Mar, [facility] [address] [id number] [place] [address]- 7921 Feb, [facility] [place] [facility] [address] [id number] [place] [address]- 3759 Jan, [facility] [address] [id number] [place] [address]- 0429 Jan, [facility] [place] [facility] [address] [id number] [place] [address]- 3942 Jan, [facility] [place] [facility] [address] [id number] [place] [address]- 8657 Dec, [facility] [place] [facility] [address] [id number] [place] [address]- 3922 October, [facility] [address] [id number] [place] [address]- 3533 October, [facility] [place] [facility] [address] [id number] [place] [address]- 2592 October, [facility] [address] [id number] [place] [address]- 6235 October, [facility] [place] [facility] [address] [id number] [place] [address]- 8146 October, [facility] [address] [id number] [place] [address]- 5542 October, [facility] [place] [facility] [address] [id number] [place] [address]- 6332 Sep, [facility] [place] [facility] [address] [id number] [place] [address]- 0293 Sep, [facility] [place] [facility] [address] [id number] [place] [address]- 1473 Jul, [facility] [place] [facility] [address] [id number] [place] [address]- 8492 Jun, [facility] [place] [facility] [address] [id number] [place] [address]- 1950 Jun, [facility] [address] [id number] [place] [address]- 1321 Jun, [facility] [place] [facility] [address] [id number] [place] [address]- 7244 May, [facility] [place] [facility] [address] [id number] [place] [address]- 1653 May, [facility] [place] [facility] [address] [id number] [place] [address]- 4113 May, [facility] [place] [facility] [address] [id number] [place] [address] May, [facility] [place] [facility] [address] [id number] [place] [address] May, [facility] [place] [facility] [address] [id number] [place] [address] May, [facility] [address] [id number] [place] [address] Mar, [facility] [place] [facility] [address] [id number] [place] [address] Mar, [facility] [place] [facility] [address] [id number] [place] [address] Mar, [facility] [place] [facility] [address] [id number] [place] [address] Mar, [facility] [place] [facility] [address] [id number] [place] [address] Feb, [facility] [place] [facility] [address] [id number] [place] [address] Dec, [facility] [place] [facility] [address] [id number] [place] [address] Dec, [facility] [place] [facility] [address] [id number] [place] [address] Dec, [facility] [address] [id number] [address] Nov, [facility] [address] [facility] [id number] [address] Nov, [facility] [address] [facility] [id number] [address] Nov, [facility] [address] [facility] [id number] [address] Nov, [facility] [address] [facility] [id number] [address] Aug, [facility] [id number] [address] Jun, [facility] [id number] [address] May, [facility] [id number] [address] Apr, [facility] [address] [id number] [address] Mar, [facility] [address] [id number] [address] May, IMMUNIZATIONS No Known Immunizations SOCIAL HISTORY Never Assessed REASON FOR VISIT Medication refill request PLAN OF CARE VITAL SIGNS MEDICATIONS Medication Instructions Dosage Frequency Start Date End Date Duration Status Simvastatin 20 mg Orally Once a day 1 tablet in the evening 24h 30 days Active RESULTS No Results PROCEDURES No [...]
--- OUTSIDE RECORDS SUMMARY | 2018-05-13 07:35 | XMS REPORT ---
Author Author PRECIOUS BOTELLO [facility] Address [address] [place] [address] Care Team Providers Care Veterinary Medical Officer Name Role Phone PRECIOUS BOTELLO Unavailable PROBLEMS Type Condition ICD9-CM Code ULE82-UB Code Onset Dates Condition Status SNOMED Code Problem Status post closed fracture of hip Z87.81 Active 421407590 Problem Dementia in other diseases classified elsewhere without behavioral disturbance F02.80 Active 020962809 Problem Type 2 diabetes mellitus with other circulatory complication, without long-term current use of insulin E11.59 Active 16856006 Problem Panlobular emphysema J43.1 Active 2980535 Problem Enlarged prostate with lower urinary tract symptoms N40.1 Active [id number] Problem Benign prostatic hyperplasia with lower urinary tract symptoms N40.1 Active 257926957 Problem Polydipsia R63.1 Active 25829259 Problem Depression F32.9 Active 40581780 Problem Type 2 diabetes mellitus with hyperglycemia E11.65 Active 906903993374671 Problem HTN (hypertension) I10 Active 28202111 Problem Bipolar disorder, unspecified F31.9 Active 36909113 Problem Acute left-sided low back pain with left-sided sciatica M54.42 Active 070309149 Problem Low back pain, unspecified back pain laterality, with sciatica presence unspecified M54.5 Active 967011380 Problem 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 Active 83924675 Problem Type 2 diabetes mellitus with diabetic polyneuropathy E11.42 Active 508286514 Problem GERD with esophagitis K21.0 Active 649884956 Problem Status post partial amputation of left foot Z89.432 Active 350867157 Problem Hammer toe, unspecified laterality M20.40 Active 813460250 Problem Tinea pedis, unspecified laterality B35.3 Active 7300083 Problem Other Alzheimers disease G30.8 Active 95158503 Problem Peripheral vascular disease due to secondary diabetes E13.51 Active 9054587 Problem Severe pain R52 Active 59017096 ALLERGIES No Information ENCOUNTERS Encounter Location Date Diagnosis [facility] [address] [id number] Jan, Acute left-sided low back pain with left-sided sciatica M54.42 [facility] [id number] [place] [address]21- 8339 Jan, Arthralgia, unspecified joint M25.[address] [id number] Jan, Left hip pain M25.552 ; Acute pain of left knee M25.562 and Tobacco abuse Z72.0 [place] [address] [address]- [address] Jan, [facility] [id number] Jan, Tobacco abuse Z72.0 [place] [id number] [place] [address] 74192- 8652 Dec, [facility] [id number] [place] [address] 70636- 0309 Dec, Arthralgia, unspecified joint M25.50 [place] [id number] [place] [address] 67838- 1077 Dec, [facility] [id number] [place] [address] 39362- 6324 Dec, [facility] [address] [id number] Dec, Dementia in other diseases classified elsewhere without behavioral disturbance F02.80 ; Peripheral vascular disease due to secondary diabetes E13.51 and 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 [facility] [id number] [place] [address] 50478- 9724 Nov, Arthralgia, unspecified joint M25.50 [facility] [id number] [place] [address] 29252- 6758 Nov, [facility] [address] [place] [address] October, Arthralgia, unspecified joint M25.50 [facility] [place] [address] [id number] October, Arthralgia, unspecified joint M25.50 [facility] [place] [address] [id number] Sep, Weakness R53.1 ; Panlobular emphysema J43.1 ; Bipolar disorder, unspecified F31.9 ; Benign prostatic hyperplasia with lower urinary tract symptoms N40.1 and Frequency of micturition R35.0 [place] [id number] [place] [address] 90154- 2756 Sep, [place] [id number] [place] [address] 49188- 2986 Aug, [facility] [address] [id number] Jul, Dementia in other diseases classified elsewhere without behavioral disturbance F02.80 [place] [id number] [place] [address] [id number] Jul, [place] [id number] [place] [address] 44612451- 6532 Jun, Bipolar disorder, unspecified F31.[address] [id number] Jun, Pneumonia due to infectious organism, unspecified laterality, unspecified part of lung J18.9 [place] [id number] [place] [address] 75155- 6929 Jun, [facility] [id number] [place] [address] [id number] Jun, [facility] [id number] 16 Apr, 2017 Type 2 diabetes mellitus with other circulatory complication, without long -term current use of insulin E11.59 [place] [id number] [place] [address] 94310- 2479 Apr, [facility] [address] [id number] [id number] Feb, [place] [id number] [id number] Feb, [facility] [address] [id number] Feb, Sore throat J02.9 and Polyuria R35.8 [place] [id number] [id number] Jan, Bronchitis J40 [facility] [address] [id number] Dec, Cervicalgia M54.2 [place] [address] [address]- 4926 October, Acute left-sided low back pain with left-sided sciatica M54.42 and Cervicalgia M54.2 [place] [id number] [place] [address] 75376- 3156 Sep, Acute left-sided low back pain with left-sided sciatica M54.42 [place] [id number] [place] [address] [id number] Sep, Cervicalgia M54.[address] [facility] [address] [id number] Sep, Cervicalgia M54.2 and Acute left-sided low back pain with left-sided sciatica M54.42 [place] [id number] [place] [address] [id number] Sep, [facility] [address] [id number] Jul, Type 2 diabetes mellitus with hyperglycemia E11.65 ; Bipolar disorder F31.9 ; 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 ; Peripheral vascular disease due to secondary diabetes E13.51 and Status post partial amputation of left foot Z89.432 [place] [id number] [address] 6443 Mar, [place] [address] [address]- 6242 Mar, [place] [id number] [place] [address] 05337- 3361 Mar, [facility] [place] [address] [id number] Mar, Dementia in other diseases classified elsewhere without behavioral disturbance F02.80 ; Polydipsia R63.1 ; HTN (hypertension) I10 ; Hypo- osmolality and hyponatremia E87.1 ; Type 2 diabetes mellitus with other circulatory complication, without long-term current use of insulin E11.59 ; Peripheral vascular disease due to secondary diabetes E13.51 and Bipolar disorder, unspecified F31.9 [place] [address] [address]- 8696 Feb, [place] [address] [address]- 4066 Jan, [place] [address] [address] 1847 Jan, [facility] [place] [address] [id number] Jan, Pain of left hip joint M25.552 ; Tobacco abuse Z72.0 and Polydipsia R63.1 [place] [address] [address]- 0280 Jan, [place] [address] [address]- 6621 Jan, [place] [address] [address]- 6907 Dec, [place] [id number] [place] [address] 60101- 5846 Dec, [facility] [address] [id number] Dec, Status post partial amputation of left foot Z89.432 and Peripheral vascular disease due to secondary diabetes E13.51 [place] [address] [address]- 6714 Dec, [facility] [address] [address]- 5063 Dec, [facility] [address] [address]- 9620 Dec, [facility] [address] [address]- 6316 Nov, [facility] [address] [address]- 1238 Nov, [facility] [place] [address] [id number] Nov, Severe pain R52 and Status post closed fracture of hip Z87.81 [facility] [address] [address]- 3073 Nov, [facility] [address] [address]- 4664 Nov, [facility] [address] [address]- 4025 October, Severe pain R52 [facility] [address] [address]- 6575 October, [facility] [id number] [address]- 9654 October, Other Alzheimers disease G30.8 and Dementia in other diseases classified elsewhere without behavioral disturbance F02.80 [facility] [address] [id number] [address] 1820 Sep, [facility] [address] [address]- 5310 Aug, [facility] [place] [address] [id number] Aug, Status post partial amputation of left foot Z89.432 ; 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 and Peripheral vascular disease due to secondary diabetes E13.51 [facility] [address] [address]- 1274 Jun, [facility] [id number] [place] [address] 59805- 6313 Jun, [facility] [place] [address] [place] [id number] Jun, 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 and Status post partial amputation of left foot Z89.432 [facility] [place] [address] [id number] May, Peripheral vascular disease due to secondary diabetes E13.51 ; Status post partial amputation of left foot Z89.432 and 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 [place] [id number] [place] [address] 71584- 9531 Mar, Gangrene associated with type II diabetes mellitus E11.52 [facility] [id number] [place] [address] 55433- 9423 Mar, [facility] [place] [address] [id number] Mar, [facility] [id number] [place] [address] 27642- 5658 Feb, Nicotine abuse 305.1 [facility] [id number] [place] [address] 61421- 9626 Feb, [facility] [id number] [place] [address] 20960- 9797 Feb, [facility] [id number] [place] [address] 31066- 5347 Jan, [facility] [id number] [place] [address] 18349- 5520 Jan, Diabetes 250.00 ; Peripheral vascular disease 443.9 and Bipolar affective disorder 296.80 [facility] [id number] [place] [address] 02282- 5256 Dec, [facility] [id number] [place] [address] [place] [address]- 4746 Dec, [facility] [address] [address]- 8138 Dec, [facility] [address] [address]- 1245 Dec, [facility] [address] [address]- 0066 Dec, Diabetes mellitus without mention of complication, type II or unspecified type, uncontrolled 250.02 and Vertigo 780.4 [facility] [address] [address]- 2881 Nov, [facility] [id number] 7078 October, Follow-up examination V67.9 ; Diabetes mellitus without mention of complication, type II or unspecified type, uncontrolled 250.02 and Upper respiratory infection 465.9 [facility] [address] [address]- 5129 October, [facility] [address] [address]- 0342 Sep, [facility] [address] [address]- 7286 Sep, [facility] [address] [address]- 7825 Aug, [facility] [address] [address]- 6629 Aug, [facility] [address] [address]- 9156 Aug, [facility] [address] [address]- 5480 Jul, [facility] [address] [address]- 4310 Jul, [facility] [id number] [place] [address]- 8798 Jul, [facility] [place] [facility] [address] [id number] [place] [address]- 1089 Jul, [facility] [place] [facility] [address] [id number] [place] [address]- 2179 May, [facility] [place] [facility] [address] [id number] [place] [address]- 1178 May, [facility] [place] [facility] [address] [id number] [place] [address]- 8229 May, [facility] [place] [facility] [address] [id number] [place] [address]- 7810 May, [facility] [place] [facility] [address] [id number] [place] [address]- 8550 Apr, [facility] [place] [facility] [address] [id number] [place] [address]- 3991 Apr, [facility] [place] [facility] [address] [id number] [place] [address]- 5015 Mar, [facility] [place] [facility] [address] [id number] [place] [address]- 1815 Mar, [facility] [place] [facility] [address] [facility] [id number] [place] [address]- 6775 Mar, [facility] [place] [facility] [address] [id number] [place] [address]- 8360 Mar, [facility] [place] [facility] [address] [id number] [place] [address]- 4417 29 Feb, 2014 [facility] [place] [facility] [address] [id number] [place] [address]- 5016 29 Feb, 2014 [facility] [place] [facility] [address] [id number] [place] [address]- 6434 Feb, [facility] [place] [facility] [address] [id number] [place] [address]- 2500 23 Sep, 2013 [facility] [place] [facility] [address] [id number] [place] [address]- 2211 22 Sep, 2013 [facility] [place] [facility] [address] [id number] [place] [address]- 5807 22 Sep, 2013 [facility] [place] [facility] [address] [id number] [place] [address]- 6898 16 Sep, 2013 [facility] [place] [facility] [address] [id number] [place] [address]- 2545 16 Sep, 2013 [facility] [place] [facility] [address] [id number] [place] [address]- 6110 16 Sep, 2013 [facility] [place] [facility] [address] [id number] [place] [address]- 7995 16 Sep, 2013 [facility] [place] [facility] [address] [id number] [place] [address]- 0331 16 Sep, 2013 [facility] [place] [facility] [address] [id number] [place] [address]- 5182 16 Sep, 2013 [facility] [place] [facility] [address] [id number] [place] [address]- 0944 11 Sep, 2013 [facility] [place] [facility] [address] [id number] [place] [address]- 3395 11 Sep, 2013 [facility] [place] [facility] [address] [id number], [place] [address]- 8449 10 Sep, 2013 [facility] [place] [facility] [address] [id number], [place] [address]- 9873 10 Sep, 2013 [facility] [place] [facility] [address] [id number] [place] [address]- 0440 07 Sep, 2013 [facility] [place] [facility] [address] [id number] [place] [address]- 4868 04 Sep, 2013 [facility] [place] [facility] [address] [id number] [place] [address]- 9187 04 Sep, 2013 [facility] [place] [facility] [address] [id number] [place] [address]- 5530 Feb, [facility] [place] [facility] [address] [id number] [place] [address]- 8479 Feb, [facility] [place] [facility] [address] [id number] [place] [address]- 9958 Jan, [facility] [place] [facility] [address] [id number] [place] [address]- 3613 Jan, [facility] [place] [facility] [address] [id number] [place] [address]- 0274 Jan, [facility] [place] [facility] [address] [id number] [place] [address]- 9271 Jan, [facility] [place] [facility] [address] [id number] [place] [address]- 7247 Nov, [facility] [place] [facility] [address] [id number] [place] [address]- 2317 Nov, [facility] [place] [facility] [address] [id number] [place] [address]- 9853 October, [facility] [place] [facility] [address] [id number] [place] [address]- 9895 October, [facility] [place] [facility] [address] [id number] [place] [address]- 4626 October, [facility] [place] [facility] [address] [id number] [place] [address]- 3280 October, [facility] [place] [facility] [address] [id number] [place] [address]- 7325 October, [facility] [place] [facility] [address] [id number] [place] [address]- 0275 October, [facility] [place] [facility] [address] [id number] [place] [address]- 7852 October, [facility] [place] [facility] [address] [id number] [place] 3321 October, [facility] [place] [facility] [address] [id number] [place] [address]- 6680 Sep, [facility] [place] [facility] [address] [id number] [place] [address]- 6730 Sep, [facility] [place] [facility] [address] [id number] [place] [address]- 1515 Sep, [facility] [place] [facility] [address] [id number] [place] [address]- 0944 Sep, [facility] [place] [facility] [address] [id number] [place] [address]- 8290 Jul, [facility] [place] [facility] [address] [id number] [place] [address]- 4219 Jul, [facility] [place] [facility] [address] [id number] [place] [address]- 7431 May, [facility] [place] [facility] [address] [id number] [place] [address]- 0180 May, [facility] [place] [facility] [address] [id number] [place] [address]- 3807 Apr, [facility] [place] [facility] [address] [id number] [place] [address]- 7555 Apr, [facility] [place] [facility] [address] [id number] [place] [address]- 7127 Apr, [facility] [place] [facility] [address] [id number] [place] [address]- 2642 Apr, [facility] [place] [facility] [address] [id number] [place] [address]- 3923 Mar, [facility] [place] [facility] [address] [id number] [place] [address]- 2292 Mar, [facility] [place] [facility] [address] [id number] [place] [address]- 8668 Mar, [facility] [place] [facility] [address] [id number] [place] [address]- 8006 Mar, [facility] [address] [id number] [place] [address]- 1696 Feb, [facility] [place] [facility] [address] [id number] [place] [address]- 6629 Jan, [facility] [address] [id number] [place] [address]- 7350 Jan, [facility] [place] [facility] [address] [id number] [place] [address]- 1453 Jan, [facility] [place] [facility] [address] [id number] [place] [address]- 9499 Dec, [facility] [place] [facility] [address] [id number] [place] [address]- 8313 October, [facility] [address] [id number] [place] [address]- 4615 October, [facility] [place] [facility] [address] [id number] [place] [address]- 2865 October, [facility] [address] [id number] [place] [address]- 2368 October, [facility] [place] [facility] [address] [id number] [place] [address]- 6546 October, [facility] [address] [id number] [place] [address]- 7211 October, [facility] [place] [facility] [address] [id number] [place] [address]- 4514 Sep, [facility] [place] [facility] [address] [id number] [place] [address]- 4717 Sep, [facility] [place] [facility] [address] [id number] [place] [address]- 6040 Jul, [facility] [place] [facility] [address] [id number] [place] [address]- 5218 Jun, [facility] [place] [facility] [address] [id number] [place] [address]- 1374 Jun, [facility] [address] [id number] [place] [address]- 8064 Jun, [facility] [place] [facility] [address] [id number] [place] [address]- 2672 May, [facility] [place] [facility] [address] [id number] [place] [address]- 9507 May, [facility] [place] [facility] [address] [id number] [place] [address]- 1225 May, [facility] [place] [facility] [address] [id number] [place] [address]- 6320 May, [facility] [place] [facility] [address] [id number] [place] 5675 May, [facility] [place] [facility] [address] [id number] [place] [address]- 4430 May, [facility] [address] [id number] [place] [address]- 8740 Mar, [facility] [place] [facility] [address] [id number] [place] [address]- 8839 Mar, [facility] [place] [facility] [address] [id number] [place] [address] Mar, [facility] [place] [facility] [address] [id number] [place] [address] Mar, [facility] [place] [facility] [address] [id number] [place] [address] Feb, [facility] [place] [facility] [address] [id number] [place] [address] Dec, [facility] [place] [facility] [address] [id number] [place] [address] Dec, [facility] [place] [facility] [address] [id number] [place] [address] Dec, [facility] [address] [id number] [address] Nov, [facility] [id number] [address] Nov, [facility] [id number] [address] Nov, [facility] [id number] [address] Nov, [facility] [id number] [address] Aug, [facility] [id number] [address] Jun, [facility] [id number] [place] [address] May, [facility] [id number] [place] [address] Apr, [facility] [id number] [place] [address] Mar, [facility] [id number] [place] [address] May, IMMUNIZATIONS No Known Immunizations SOCIAL HISTORY Never Assessed REASON FOR VISIT Routine visit PLAN OF CARE Activity Details Follow Up prn Reason: VITAL SIGNS MEDICATIONS Medication Instructions Dosage Frequency Start Date End Date Duration Status Cough Drops 5.8 MG Mouth/Throat every 2-4 hrs 1 lozenge as needed Active Lactobacillus Orally Once a day 1 tablet 24h Active Simvastatin 40 MG TAKE 1 TABLET BY MOUTH AT BEDTIME 30 Active Actos 45 MG Orally Once a day 1 tablet 24h Apr, Active Latuda 20 MG TAKE 1 TABLET BY MOUTH EVERY DAY 30 Active Tylenol Extra Strength 500 mg Orally every 6 hrs 1-2 tablets as needed 6h Sep, Active Tums 500 mg Orally every 12 hrs 1 tablet as needed 12h Active Albuterol Sulfate 1.25 MG/3ML Inhalation every 12 hours 3 ml as needed 12h Active Stress B Complex/Zinc by oral route Once a day 1 tablet 24h Active Venlafaxine HCl ER 150 MG TAKE 1 CAPSULE BY MOUTH ONCE DAILY 30 Active Exelon 1.5 MG Orally Twice a day 1 capsule with food 12h October, 30 day(s) Active Tramadol HCl 50 mg Orally 4 times a day 1 tablet 6h October, 28 days Active Carlota-Tussin 100 MG/5ML Orally every 6 hrs 15 ml as needed 6h Active Tamsulosin HCl 0.4 MG TAKE 1 CAPSULE BY MOUTH ONCE DAILY 30 Active Gabapentin 300 MG Orally 3 times a day 1 capsule 8h Active Folic Acid 1 MG Orally Once a day 1 tablet 24h Active Clopidogrel Bisulfate 75 MG TAKE 1 TABLET BY MOUTH ONCE DAILY 30 Active MiraLax 17 gm/dose Orally once daily as needed 17 grams mixed in 8 oz of water or juice Active Calmoseptine 0.44-20.6 % Externally to buttocks as needed Active Metformin HCl 1000 MG TAKE 1 TABLET BY MOUTH TWICE DAILY 30 Active Ferrous Sulfate 325 (65 Fe) MG Orally Once a day 1 tablet 24h Active Vitamin D3 2000 UNIT Orally Once a day 1 capsule 24h Active Aspirin Adult Low Dose 81 MG Orally Once a day 1 tablet 24h Active Pioglitazone HCl 45 MG TAKE 1 TABLET BY MOUTH EVERY DAY 30 Active RESULTS No Results PROCEDURES Procedure Date Ordered Result Body Site [facility] VISIT ESTABLISHED PATIENT January 01, 2018 NURSING FAC CARE SUBSEQ January 01, 2018 INSTRUCTIONS MEDICATIONS ADMINISTERED No Known Medications [...]
--- OUTSIDE RECORDS SUMMARY | 2018-05-13 07:35 | XMS REPORT ---
Author Author PRECIOUS BOTELLO [facility] Address [address] [place] [address] Care Team Providers Care Processing Manager Name Role Phone PRECIOUS BOTELLO Unavailable PROBLEMS Type Condition ICD9-CM Code QVL06-WW Code Onset Dates Condition Status SNOMED Code Problem Status post closed fracture of hip Z87.81 Active 750504950 Problem Dementia in other diseases classified elsewhere without behavioral disturbance F02.80 Active 838298296 Problem Type 2 diabetes mellitus with other circulatory complication, without long-term current use of insulin E11.59 Active 15136952 Problem Panlobular emphysema J43.1 Active 8845796 Problem Enlarged prostate with lower urinary tract symptoms N40.1 Active 416440688618193 Problem Benign prostatic hyperplasia with lower urinary tract symptoms N40.1 Active 830336877 Problem Polydipsia R63.1 Active 88146658 Problem Depression F32.9 Active 37325801 Problem Type 2 diabetes mellitus with hyperglycemia E11.65 Active 847990337550232 Problem HTN (hypertension) I10 Active 14789191 Problem Bipolar disorder, unspecified F31.9 Active 63571384 Problem Acute left-sided low back pain with left-sided sciatica M54.42 Active 358477243 Problem Low back pain, unspecified back pain laterality, with sciatica presence unspecified M54.5 Active 234049825 Problem 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 Active 77361506 Problem Type 2 diabetes mellitus with diabetic polyneuropathy E11.42 Active 557309880 Problem GERD with esophagitis K21.0 Active 651863756 Problem Status post partial amputation of left foot Z89.432 Active 740812700 Problem Hammer toe, unspecified laterality M20.40 Active 999837149 Problem Tinea pedis, unspecified laterality B35.3 Active 8940454 Problem Other Alzheimers disease G30.8 Active 53800635 Problem Peripheral vascular disease due to secondary diabetes E13.51 Active 3128897 Problem Severe pain R52 Active 60889129 ALLERGIES No Information ENCOUNTERS Encounter Location Date Diagnosis [place] [id number] [id number] [place] [address] 15792- 8038 Jan, Arthralgia, unspecified joint M25.[address] [id number] Jan, Left hip pain M25.552 ; Acute pain of left knee M25.562 and Tobacco abuse Z72.0 [place] [id number] [place] [address] 47981- 0242 Jan, [facility] [address] [place] [id number] Jan, Tobacco abuse Z72.0 [place] [id number] [place] [address] 60478- 5040 Dec, [place] [id number] [place] [address] 93494- 5052 Dec, Arthralgia, unspecified joint M25.50 [place] [id number] [place] [address] 24207- 6550 Dec, [place] [id number] [place] [address] 95708- 6813 Dec, [facility] [id number] Dec, Dementia in other diseases classified elsewhere without behavioral disturbance F02.80 ; Peripheral vascular disease due to secondary diabetes E13.51 and 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 [place] [id number] [place] [address] 36760- 6861 Nov, Arthralgia, unspecified joint M25.50 [place] [id number] [place] [address] 62957- 8252 Nov, [place] [id number] [place] [address] 29810- 9676 October, Arthralgia, unspecified joint M25.50 [facility] [address] [place] [id number] October, Arthralgia, unspecified joint M25.[address] [facility] [address] [id number] Sep, Weakness R53.1 ; Panlobular emphysema J43.1 ; Bipolar disorder, unspecified F31.9 ; Benign prostatic hyperplasia with lower urinary tract symptoms N40.1 and Frequency of micturition R35.0 [place] [id number] [place] [address] 90262- 2786 Sep, [place] [id number] [place] [address] 52361- 0158 Aug, [facility] [address] [id number] Jul, Dementia in other diseases classified elsewhere without behavioral disturbance F02.80 [place] [address] [id number] [place] [address] [id number] Jul, [place] [id number] [place] [address] 77759- 8436 Jun, Bipolar disorder, unspecified F31.[address] [facility] [address] [id number] Jun, Pneumonia due to infectious organism, unspecified laterality, unspecified part of lung J18.9 [place] [address] [address]- 4006 Jun, [place] [address] [id number] [place] [address] [id number] Jun, [facility] [address] [id number] Apr, Type 2 diabetes mellitus with other circulatory complication, without long -term current use of insulin E11.59 [place] [id number] [place] [address] 03759 2546 Apr, [place] [id number] [id number] Feb, [place] [address] [id number] [address] Feb, [facility] [address] [place] [id number] Feb, Sore throat J02.[address] [facility] [id number] [id number] Jan, Bronchitis J40 [facility] [address] [id number] Dec, Cervicalgia M54.2 [place] [address] [place] [address] 75366- 4138 October, Acute left-sided low back pain with left-sided sciatica M54.42 and Cervicalgia M54.2 [place] [address], [place] [address]- 2956 Sep, Acute left-sided low back pain with left-sided sciatica M54.42 [place] [address] [id number] [place] [address] [id number] Sep, Cervicalgia M54.[address] [id number] Sep, Cervicalgia M54.2 and Acute left-sided low back pain with left-sided sciatica M54.42 [place] [id number] [address] Sep, [facility] [address] [id number] Jul, Type 2 diabetes mellitus with hyperglycemia E11.65 ; Bipolar disorder F31.9 ; 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 ; Peripheral vascular disease due to secondary diabetes E13.51 and Status post partial amputation of left foot Z89.432 [place] [address] 0137 Mar, [place] [address] [address] 0022 Mar, [place] [id number] [address]- 1244 Mar, [facility] [address] [place] [id number] Mar, Dementia in other diseases classified elsewhere without behavioral disturbance F02.80 ; Polydipsia R63.1 ; HTN (hypertension) I10 ; Hypo- osmolality and hyponatremia E87.1 ; Type 2 diabetes mellitus with other circulatory complication, without long-term current use of insulin E11.59 ; Peripheral vascular disease due to secondary diabetes E13.51 and Bipolar disorder, unspecified F31.9 [place] [address] [place] [address] 03715- 1402 Feb, [place] [id number] [place] [address] 70349- 9939 Jan, [place] [id number] [place] [address] 16380- 7783 Jan, [facility] [address] [place] [address] Jan, Pain of left hip joint M25.552 ; Tobacco abuse Z72.0 and Polydipsia R63.1 [place] [id number] [place] [address] 92481- 2503 Jan, [place] [id number] [place] [address] 58446- 8105 Jan, [place] [address] [id number] [place] [address] 34611- 8295 Dec, [place] [id number] [place] [address] 28017- 9954 Dec, [facility] [address] [place] [id number] Dec, Status post partial amputation of left foot Z89.432 and Peripheral vascular disease due to secondary diabetes E13.51 [place] [address] [place] [address] 37226- 7221 Dec, [facility] [id number] [place] [address] 15117- 0197 Dec, [facility] [address], [place] [address]- 6886 Dec, [facility] [address], [place] [address]- 3409 Nov, [facility] [address], [place] [address]- 9506 Nov, [facility] [address] [place] [id number] Nov, Severe pain R52 and Status post closed fracture of hip Z87.81 [facility] [address], [place] [address]- 8916 Nov, [facility] [address], [place] [address]- 4543 Nov, [facility] [address], [place] [address]- 2630 October, Severe pain R52 [facility] [address], [place] [address]- 8596 October, [facility] [address], [place] [address]- 8996 October, Other Alzheimers disease G30.8 and Dementia in other diseases classified elsewhere without behavioral disturbance F02.80 [facility] [address], [place] [address]- 8051 Sep, [facility] [address], [place] [address]- 9275 Aug, [facility] [address] [place] [id number] Aug, Status post partial amputation of left foot Z89.432 ; 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 and Peripheral vascular disease due to secondary diabetes E13.51 [facility] [id number] [address]- 8329 Jun, [facility] [address] [address]- 6166 Jun, [facility] [address] [place] [address] Jun, 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 and Status post partial amputation of left foot Z89.432 [facility] [address] [place] [address] May, Peripheral vascular disease due to secondary diabetes E13.51 ; Status post partial amputation of left foot Z89.432 and 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 [facility] [address] [place] [address] 75510- 8603 Mar, Gangrene associated with type II diabetes mellitus E11.52 [facility] [id number] [place] [address] 96791- 7126 Mar, [facility] [address] [place] [id number] Mar, [facility] [address] [place] [address] 95464- 8280 Feb, Nicotine abuse 305.1 [facility] [id number] [place] [address] 47319- 9013 Feb, [facility] [id number] [place] [address] 46465- 8202 Feb, [facility] [address] [place] [address] 73888- 6553 Jan, [facility] [id number] [place] [address] 48689- 7333 Jan, Diabetes 250.00 ; Peripheral vascular disease 443.9 and Bipolar affective disorder 296.80 [facility] [id number] [place] [address] 372977- 3775 Dec, [facility] [id number] [place] [address] 50996- 2596 Dec, [facility] [id number] [place] [address] 771938- 4464 Dec, [facility] [address], [place] [address]- 2019 Dec, [facility] [address], [place] [address]- 7616 Dec, Diabetes mellitus without mention of complication, type II or unspecified type, uncontrolled 250.02 and Vertigo 780.4 [facility] [address], [place] [address]- 2883 Nov, [facility] [address] 4750 October, Follow-up examination V67.9 ; Diabetes mellitus without mention of complication, type II or unspecified type, uncontrolled 250.02 and Upper respiratory infection 465.9 [facility] [address], [place] [address]- 8496 October, [facility] [address], [place] [address]- 1462 Sep, [facility] [address], [place] [address]- 6855 Sep, [facility] [address], [place] [address]- 8111 Aug, [facility] [address], [place] [address]- 3566 Aug, [facility] [address], [place] [address]- 8846 Aug, [facility] [id number], [place] [address]- 6917 Jul, [facility] [address], [place] [address]- 6736 Jul, [facility] [id number], [place] [address]- 2546 Jul, [facility] [address], [place] [address]- 1114 Jul, [facility] [place] [facility] [address] [id number] [place] [address]- 5849 May, [facility] [place] [facility] [address] [id number] [place] [address]- 6797 May, [facility] [place] [facility] [address] [id number] [place] [address]- 0444 May, [facility] [place] [facility] [address] [id number] [place] [address]- 0805 May, [facility] [place] [facility] [address] [id number] [place] [address]- 4182 Apr, [facility] [place] [facility] [address] [id number] [place] [address]- 8733 Apr, [facility] [place] [facility] [address] [facility] [id number] [address]- 2871 Mar, [facility] [place] [facility] [address] [id number] [place] [address]- 6619 Mar, [facility] [place] [facility] [address] [facility] [id number] [place] [address]- 6819 Mar, [facility] [place] [facility] [address] [facility] [id number], [place] [address]- 3349 Mar, [facility] [place] [facility] [address] [id number], [place] [address]- 1752 29 Feb, 2014 [facility] [place] [facility] [address] [id number], [place] [address]- 7443 29 Feb, 2014 [facility] [place] [facility] [address] [id number], [place] [address]- 6829 23 Feb, 2014 [facility] [place] [facility] [address] [id number], [place] [address]- 1213 23 Feb, 2013 [facility] [place] [facility] [address] [id number], [place] [address]- 4403 22 Feb, 2013 [facility] [place] [facility] [address] [id number] [place] [address] 2540 22 Sep, 2013 [facility] [place] [facility] [address] [id number] [place] [address] 2546 16 Sep, 2013 [facility] [place] [facility] [address] [id number] [place] [address] 2546 16 Sep, 2013 [facility] [place] [facility] [address] [id number] [place] [address] 2546 16 Sep, 2013 [facility] [place] [facility] [address] [id number] [place] [address] 2546 16 Sep, 2013 [facility] [place] [facility] [address] [id number] [place] [address] 2546 16 Sep, 2013 [facility] [place] [facility] [address] [id number] [place] [address]- 6302 16 Sep, 2013 [facility] [place] [facility] [address] [id number] [place] [address] 2541 11 Sep, 2013 [facility] [place] [facility] [address] [id number] [place] [address] 2540 11 Sep, 2013 [facility] [place] [facility] [address] [id number] [place] [address] 2543 10 Sep, 2013 [facility] [place] [facility] [address] [id number] [place] [address] 254 10 Sep, 2013 [facility] [place] [facility] [address] [id number] [place] [address]- 2541 07 Sep, 2013 [facility] [place] [facility] [address] [id number] [place] [address] 2540 04 Sep, 2013 [facility] [place] [facility] [address] [id number] [place] [address] 2546 04 Sep, 2013 [facility] [place] [facility] [address] [id number] [place] [address] 2547 02 Sep, 2013 [facility] [place] [facility] [address] [id number] [place] [address]- 8229 Feb, [facility] [place] [facility] [address] [id number] [place] [address]- 4471 Jan, [facility] [place] [facility] [address] [id number] [place] [address]- 0696 Jan, [facility] [place] [facility] [address] [id number] [place] [address]- 3357 Jan, [facility] [place] [facility] [address] [id number] [place] [address]- 0525 Jan, [facility] [place] [facility] [address] [id number] [place] [address]- 1734 Nov, [facility] [place] [facility] [address] [id number] [place] [address]- 2674 Nov, [facility] [place] [facility] [address] [id number] [place] [address]- 9658 October, [facility] [place] [facility] [address] [id number] [place] [address]- 8556 October, [facility] [place] [facility] [address] [id number] [place] [address]- 7903 October, [facility] [place] [facility] [address] [id number] [place] [address]- 7459 October, [facility] [place] [facility] [address] [id number] [place] [address]- 4861 October, [facility] [place] [facility] [address] [id number], [place] [address]- 4477 October, [facility] [place] [facility] [address] [id number] [place] [address]- 8360 October, [facility] [place] [facility] [address] [id number] [place] [address]- 7688 October, [facility] [place] [facility] [address] [id number] [place] [address]- 1654 Sep, [facility] [place] [facility] [address] [id number] [place] [address]- 2132 15 Sep, 2013 [facility] [address] [id number] [place] 7576 Sep, [facility] [place] [facility] [address] [id number] [place] 9326 Sep, [facility] [address] [id number] [place] 2047 Jul, [facility] [place] [facility] [address] [id number] [place] [address]- 7243 Jul, [facility] [address] [id number] [place] 1445 May, [facility] [place] [facility] [address] [id number] [place] [address]- 0126 May, [facility] [address] [id number] [place] [address]- 7773 Apr, [facility] [address] [id number] [place] [address]- 9906 Apr, [facility] [place] [facility] [address] [facility] [id number] [place] [address]- 8459 Apr, [facility] [address] [facility] [id number] [place] [address]- 9053 Apr, [facility] [place] [facility] [address] [id number] [place] [address]- 3914 Mar, [facility] [place] [facility] [address] [id number] [place] [address]- 4201 Mar, [facility] [place] [facility] [address] [id number] [place] [address]- 4662 Mar, [facility] [place] [facility] [address] [id number] [place] [address] 2543 Mar, [facility] [place] [facility] [address] [id number] [place] [address]- 4183 Feb, [facility] [place] [facility] [address] [id number] [place] [address]- 1221 Jan, [facility] [address] [id number] [place] [address]- 4295 Jan, [facility] [address] [id number] [place] [address]- 7840 Jan, [facility] [address] [id number] [place] [address]- 1156 Dec, [facility] [address] [id number] [place] [address]- 2555 October, [facility] [address] [id number] [place] [address]- 0123 October, [facility] [address] [id number] [place] [address]- 4421 October, [facility] [address] [id number] [place] [address]- 1132 October, [facility] [address] [id number] [place] [address]- 8324 October, [facility] [address] [id number] [place] [address]- 6321 October, [facility] [address] [id number] [place] [address]- 7169 Sep, [facility] [place] [facility] [address] [id number] [place] [address]- 3877 Sep, [facility] [place] [facility] [address] [id number] [place] [address]- 3236 Jul, [facility] [place] [facility] [address] [id number] [place] [address]- 9516 Jun, [facility] [place] [facility] [address] [id number] [place] [address]- 7046 Jun, [facility] [place] [facility] [address] [id number], [place] [address]- 3426 Jun, [facility] [place] [facility] [address] [id number] [place] [address]- 8409 May, [facility] [place] [facility] [address] [id number] [place] [address]- 2976 May, [facility] [place] [facility] [address] [id number] [place] [address] May, [facility] [place] [facility] [address] [id number] [place] [address] May, [facility] [place] [facility] [address] [id number] [place] [address] May, [facility] [place] [facility] [address] [id number] [place] [address] May, [facility] [place] [facility] [address] [facility] [id number] [place] [address] Mar, [facility] [place] [facility] [address] [id number] [place] [address] Mar, [facility] [place] [facility] [address] [facility] [id number] [place] [address] Mar, [facility] [place] [facility] [address] [facility] [id number] [place] [address] Mar, [facility] [place] [facility] [address] [facility] [id number], [place] [address] Feb, [facility] [place] [facility] [address] [id number], [place] [address] Dec, [facility] [place] [facility] [address] [id number] [place] [address] Dec, [facility] [place] [facility] [address] [facility] [id number] [place] [address] Dec, [facility] [place] [facility] [address] [facility] [id number] [place] [address] Nov, [facility] [place] [facility] [address] [id number], [place] [address] Nov, [facility] [address] [id number], [place] [address] Nov, [facility] [address] [id number], [place] [address] Nov, [facility] [address] [id number], [place] [address] Aug, [facility] [id number], [place] [address] Jun, [facility] [id number], [place] [address] May, [facility] [id number], [place] [address] Apr, [facility] [id number], [place] [address] Mar, [facility] [address] [id number], [place] [address] May, IMMUNIZATIONS No Known Immunizations SOCIAL HISTORY [...]
--- OUTSIDE RECORDS SUMMARY | 2018-05-13 07:35 | XMS REPORT ---
Author Author PRECIOUS BOTELLO [facility] Address [address] [place] [address] Care Team Providers Care Nurse Charge Rn Name Role Phone PRECIOUS BOTELLO Unavailable PROBLEMS Type Condition ICD9-CM Code LGE90-ZK Code Onset Dates Condition Status SNOMED Code Problem Status post closed fracture of hip Z87.81 Active 931835953 Problem Dementia in other diseases classified elsewhere without behavioral disturbance F02.80 Active 470301104 Problem Type 2 diabetes mellitus with other circulatory complication, without long-term current use of insulin E11.59 Active 11924515 Problem Panlobular emphysema J43.1 Active 4426691 Problem Enlarged prostate with lower urinary tract symptoms N40.1 Active 667133013993607 Problem Benign prostatic hyperplasia with lower urinary tract symptoms N40.1 Active 007937580 Problem Polydipsia R63.1 Active 12463580 Problem Depression F32.9 Active 59260549 Problem Type 2 diabetes mellitus with hyperglycemia E11.65 Active 688013790709707 Problem HTN (hypertension) I10 Active 09269051 Problem Bipolar disorder, unspecified F31.9 Active 33516035 Problem Acute left-sided low back pain with left-sided sciatica M54.42 Active 097089324 Problem Low back pain, unspecified back pain laterality, with sciatica presence unspecified M54.5 Active 816632881 Problem 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 Active 82316671 Problem Type 2 diabetes mellitus with diabetic polyneuropathy E11.42 Active 831869332 Problem GERD with esophagitis K21.0 Active 229618641 Problem Status post partial amputation of left foot Z89.432 Active 236686024 Problem Hammer toe, unspecified laterality M20.40 Active 658254831 Problem Tinea pedis, unspecified laterality B35.3 Active 7158371 Problem Other Alzheimers disease G30.8 Active 84106807 Problem Peripheral vascular disease due to secondary diabetes E13.51 Active 8429113 Problem Severe pain R52 Active 75623669 ALLERGIES No Information ENCOUNTERS Encounter Location Date Diagnosis [facility] [address] [id number] Jan, Acute left-sided low back pain with left-sided sciatica M54.42 [facility] [id number] [place] [address] 87713- 6834 Jan, Arthralgia, unspecified joint M25.[address] [id number] Jan, Left hip pain M25.552 ; Acute pain of left knee M25.562 and Tobacco abuse Z72.0 [place] [address] [address] Jan, [facility] [id number] Jan, Tobacco abuse Z72.0 [place] [id number] [place] [address] 71391- 4675 Dec, [facility] [id number] [place] [address] 26051- 0137 Dec, Arthralgia, unspecified joint M25.50 [place] [id number] [place] [address] 81574- 7260 Dec, [facility] [id number] [place] [address] 46735- 4777 Dec, [facility] [address] [id number] Dec, Dementia in other diseases classified elsewhere without behavioral disturbance F02.80 ; Peripheral vascular disease due to secondary diabetes E13.51 and 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 [facility] [id number] [place] [address] 40444- 7611 Nov, Arthralgia, unspecified joint M25.50 [facility] [id number] [place] [address] 27549- 2247 Nov, [facility] [address] [place] [address] October, Arthralgia, unspecified joint M25.50 [facility] [address] [address] October, Arthralgia, unspecified joint M25.50 [facility] [place] [address] [id number] Sep, Weakness R53.1 ; Panlobular emphysema J43.1 ; Bipolar disorder, unspecified F31.9 ; Benign prostatic hyperplasia with lower urinary tract symptoms N40.1 and Frequency of micturition R35.0 [place] [id number] [place] [address] 60399- 9286 Sep, [place] [id number] [place] [address] 35503- 4666 Aug, [facility] [address] [id number] Jul, Dementia in other diseases classified elsewhere without behavioral disturbance F02.80 [place] [id number] [place] [address] [id number] Jul, [place] [id number] [place] [address] [id number] 4094 Jun, Bipolar disorder, unspecified F31.[address] [id number] Jun, Pneumonia due to infectious organism, unspecified laterality, unspecified part of lung J18.9 [place] [id number] [place] [address] 09969- 4899 Jun, [facility] [id number] [place] [id number] Jun, [facility] [id number] 16 Apr, 2017 Type 2 diabetes mellitus with other circulatory complication, without long -term current use of insulin E11.59 [place] [id number] [place] [address] 39981- 6975 Apr, [facility] [address] [id number] [id number] Feb, [place] [id number] [id number] Feb, [facility] [address] [id number] Feb, Sore throat J02.9 and Polyuria R35.8 [place] [id number] [address] Jan, Bronchitis J40 [facility] [address] [id number] Dec, Cervicalgia M54.2 [place] [address] [address] 6816 October, Acute left-sided low back pain with left-sided sciatica M54.42 and Cervicalgia M54.2 [place] [address] [place] [address] 89892- 7056 Sep, Acute left-sided low back pain with left-sided sciatica M54.42 [place] [id number] [place] [address] [id number] Sep, Cervicalgia M54.[address] [facility] [address] [id number] Sep, Cervicalgia M54.2 and Acute left-sided low back pain with left-sided sciatica M54.42 [place] [id number] [place] [address] [id number] Sep, [facility] [address] [id number] Jul, Type 2 diabetes mellitus with hyperglycemia E11.65 ; Bipolar disorder F31.9 ; 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 ; Peripheral vascular disease due to secondary diabetes E13.51 and Status post partial amputation of left foot Z89.432 [place] [id number] [address]- 7537 Mar, [place] [address] [address]- 8112 Mar, [place] [id number] [place] [address] 30972- 4706 Mar, [facility] [place] [address] [id number] Mar, Dementia in other diseases classified elsewhere without behavioral disturbance F02.80 ; Polydipsia R63.1 ; HTN (hypertension) I10 ; Hypo- osmolality and hyponatremia E87.1 ; Type 2 diabetes mellitus with other circulatory complication, without long-term current use of insulin E11.59 ; Peripheral vascular disease due to secondary diabetes E13.51 and Bipolar disorder, unspecified F31.9 [place] [address] [address]- 5[address] Feb, [place] [address] [address]- 4900 Jan, [place] [address] [address]- 2805 Jan, [facility] [place] [address] [id number] Jan, Pain of left hip joint M25.552 ; Tobacco abuse Z72.0 and Polydipsia R63.1 [place] [address] [address]- 2919 Jan, [place] [address] [address]- 9549 Jan, [place] [address] [address]- 3891 Dec, [place] [address] [place] [address] 34493- 4648 Dec, [facility] [address] [id number] Dec, Status post partial amputation of left foot Z89.432 and Peripheral vascular disease due to secondary diabetes E13.51 [place] [address] [address]- 6293 Dec, [facility] [address] [address]- 4172 Dec, [facility] [address], [place] [address]- 6874 Dec, [facility] [address] [address]- 7582 Nov, [facility] [address], [place] [address]- 7614 Nov, [facility] [place] [address] [id number] Nov, Severe pain R52 and Status post closed fracture of hip Z87.81 [facility] [address] [address]- 0803 Nov, [facility] [address], [place] [address]- 0174 Nov, [facility] [address], [place] [address]- 6636 October, Severe pain R52 [facility] [address], [place] [address]- 7257 October, [facility] [id number] [address]- 9933 October, Other Alzheimers disease G30.8 and Dementia in other diseases classified elsewhere without behavioral disturbance F02.80 [facility] [id number] [address]- 7999 Sep, [facility] [address], [place] [address]- 1054 Aug, [facility] [place] [address] [id number] Aug, Status post partial amputation of left foot Z89.432 ; 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 and Peripheral vascular disease due to secondary diabetes E13.51 [facility] [address], [place] [address]- 0780 Jun, [facility] [id number] [place] [address] 85346- 6936 Jun, [facility] [place] [address] [place] [id number] Jun, 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 and Status post partial amputation of left foot Z89.432 [facility] [place] [address] [address] May, Peripheral vascular disease due to secondary diabetes E13.51 ; Status post partial amputation of left foot Z89.432 and 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 [place] [id number] [place] [address] 11656- 5455 Mar, Gangrene associated with type II diabetes mellitus E11.52 [facility] [id number] [place] [address] 72526- 3345 Mar, [facility] [place] [address] [id number] Mar, [facility] [id number] [place] [address] 38730- 6845 Feb, Nicotine abuse 305.1 [facility] [id number] [place] [address] 29913- 0671 Feb, [facility] [id number] [place] [address] 95871- 8025 Feb, [facility] [id number] [place] [address] 95956- 5659 Jan, [facility] [id number] [place] [address] 93611- 2158 Jan, Diabetes 250.00 ; Peripheral vascular disease 443.9 and Bipolar affective disorder 296.80 [facility] [id number] [place] [address] 18252- 7497 Dec, [facility] [id number] [place] [address] [place] [address]- 7456 Dec, [facility] [address], [place] [address]- 4618 Dec, [facility] [address], [place] [address]- 7556 Dec, [facility] [address] [address]- 1752 Dec, Diabetes mellitus without mention of complication, type II or unspecified type, uncontrolled 250.02 and Vertigo 780.4 [facility] [address], [place] [address]- 9721 Nov, [facility] [id number] 9551 October, Follow-up examination V67.9 ; Diabetes mellitus without mention of complication, type II or unspecified type, uncontrolled 250.02 and Upper respiratory infection 465.9 [facility] [address], [place] [address]- 0334 October, [facility] [address], [place] [address]- 7077 Sep, [facility] [address], [place] [address]- 8770 Sep, [facility] [address], [place] [address]- 3773 Aug, [facility] [address], [place] [address]- 9508 Aug, [facility] [address], [place] [address]- 7568 Aug, [facility] [address], [place] [address]- 1816 Jul, [facility] [address], [place] [address]- 9807 Jul, [facility] [id number] [place] [address]- 9217 Jul, [facility] [place] [facility] [address] [id number] [place] [address]- 9932 Jul, [facility] [place] [facility] [address] [id number] [place] [address]- 2398 May, [facility] [place] [facility] [address] [id number] [place] [address]- 5986 May, [facility] [place] [facility] [address] [id number] [place] [address]- 5975 May, [facility] [place] [facility] [address] [id number] [place] [address]- 5012 May, [facility] [place] [facility] [address] [id number] [place] [address]- 4003 Apr, [facility] [place] [facility] [address] [id number] [place] [address]- 9583 Apr, [facility] [place] [facility] [address] [id number] [place] [address]- 5475 Mar, [facility] [place] [facility] [address] [id number] [place] [address]- 0480 Mar, [facility] [place] [facility] [address] [facility] [id number] [place] [address]- 0344 Mar, [facility] [place] [facility] [address] [id number] [place] [address]- 0577 Mar, [facility] [place] [facility] [address] [id number] [place] [address]- 8151 29 Feb, 2014 [facility] [place] [facility] [address] [id number] [place] [address]- 7854 29 Feb, 2014 [facility] [place] [facility] [address] [id number] [place] [address]- 8298 Feb, [facility] [place] [facility] [address] [id number] [place] [address]- 4412 23 Sep, 2013 [facility] [place] [facility] [address] [id number] [place] [address]- 1849 22 Sep, 2013 [facility] [place] [facility] [address] [id number] [place] [address]- 0268 22 Sep, 2013 [facility] [place] [facility] [address] [id number] [place] [address]- 7428 16 Sep, 2013 [facility] [place] [facility] [address] [id number] [place] [address]- 2544 16 Sep, 2013 [facility] [place] [facility] [address] [id number] [place] [address]- 7105 16 Sep, 2013 [facility] [place] [facility] [address] [id number] [place] [address]- 9452 16 Sep, 2013 [facility] [place] [facility] [address] [id number] [place] [address]- 8797 16 Sep, 2013 [facility] [place] [facility] [address] [id number] [place] [address]- 6809 16 Sep, 2013 [facility] [place] [facility] [address] [id number] [place] [address]- 3928 11 Sep, 2013 [facility] [place] [facility] [address] [id number] [place] [address]- 2606 11 Sep, 2013 [facility] [place] [facility] [address] [id number], [place] [address]- 4990 10 Sep, 2013 [facility] [place] [facility] [address] [id number], [place] [address]- 1945 10 Sep, 2013 [facility] [place] [facility] [address] [id number] [place] [address]- 4506 07 Sep, 2013 [facility] [place] [facility] [address] [id number] [place] [address]- 5215 04 Sep, 2013 [facility] [place] [facility] [address] [id number] [place] [address]- 0309 04 Sep, 2013 [facility] [place] [facility] [address] [id number] [place] [address]- 6567 Feb, [facility] [place] [facility] [address] [id number] [place] [address]- 1184 Feb, [facility] [place] [facility] [address] [id number] [place] [address]- 7797 Jan, [facility] [place] [facility] [address] [id number] [place] [address]- 4666 Jan, [facility] [place] [facility] [address] [id number] [place] [address]- 9520 Jan, [facility] [place] [facility] [address] [id number] [place] [address]- 7002 Jan, [facility] [place] [facility] [address] [id number] [place] [address]- 9948 Nov, [facility] [place] [facility] [address] [id number] [place] [address]- 4596 Nov, [facility] [place] [facility] [address] [id number] [place] [address]- 9610 October, [facility] [place] [facility] [address] [id number] [place] [address]- 6497 October, [facility] [place] [facility] [address] [id number] [place] [address]- 1015 October, [facility] [place] [facility] [address] [id number] [place] [address]- 5695 October, [facility] [place] [facility] [address] [id number] [place] [address]- 1743 October, [facility] [place] [facility] [address] [id number] [place] [address]- 6922 October, [facility] [place] [facility] [address] [id number] [place] [address]- 0255 October, [facility] [place] [facility] [address] [id number] [place] 1713 October, [facility] [place] [facility] [address] [id number] [place] [address]- 8263 Sep, [facility] [place] [facility] [address] [id number] [place] [address]- 5528 Sep, [facility] [place] [facility] [address] [id number] [place] [address]- 9176 Sep, [facility] [place] [facility] [address] [id number] [place] [address]- 2273 Sep, [facility] [place] [facility] [address] [id number] [place] [address]- 2866 Jul, [facility] [place] [facility] [address] [id number] [place] [address]- 3178 Jul, [facility] [place] [facility] [address] [id number] [place] [address]- 3288 May, [facility] [place] [facility] [address] [id number] [place] [address]- 5534 May, [facility] [place] [facility] [address] [id number] [place] [address]- 5834 Apr, [facility] [place] [facility] [address] [id number] [place] [address]- 2916 Apr, [facility] [place] [facility] [address] [id number] [place] [address]- 0044 Apr, [facility] [place] [facility] [address] [id number] [place] [address]- 4186 Apr, [facility] [place] [facility] [address] [id number] [place] [address]- 1954 Mar, [facility] [place] [facility] [address] [id number] [place] [address]- 4782 Mar, [facility] [place] [facility] [address] [id number] [place] [address]- 1208 Mar, [facility] [place] [facility] [address] [id number] [place] [address]- 0536 Mar, [facility] [address] [id number] [place] [address]- 7890 Feb, [facility] [place] [facility] [address] [id number] [place] [address]- 2605 Jan, [facility] [address] [id number] [place] [address]- 8056 Jan, [facility] [place] [facility] [address] [id number] [place] [address]- 3136 Jan, [facility] [place] [facility] [address] [id number] [place] [address]- 5336 Dec, [facility] [place] [facility] [address] [id number] [place] [address]- 5680 October, [facility] [address] [id number] [place] [address]- 2154 October, [facility] [place] [facility] [address] [id number] [place] [address]- 0962 October, [facility] [address] [id number] [place] [address]- 4132 October, [facility] [place] [facility] [address] [id number] [place] [address]- 1511 October, [facility] [address] [id number] [place] [address]- 4665 October, [facility] [place] [facility] [address] [id number] [place] [address]- 5001 Sep, [facility] [place] [facility] [address] [id number] [place] [address]- 7631 Sep, [facility] [place] [facility] [address] [id number] [place] [address]- 7257 Jul, [facility] [place] [facility] [address] [id number] [place] [address]- 8618 Jun, [facility] [place] [facility] [address] [id number] [place] [address]- 9601 Jun, [facility] [address] [id number] [place] [address]- 4383 Jun, [facility] [place] [facility] [address] [id number] [place] [address]- 6387 May, [facility] [place] [facility] [address] [id number] [place] [address]- 9575 May, [facility] [place] [facility] [address] [id number] [place] [address]- 1547 May, [facility] [place] [facility] [address] [id number] [place] [address]- 8264 May, [facility] [place] [facility] [address] [id number] [place] 1634 May, [facility] [place] [facility] [address] [id number] [place] [address]- 2010 May, [facility] [address] [id number] [place] [address] Mar, [facility] [place] [facility] [address] [id number] [place] [address] Mar, [facility] [place] [facility] [address] [id number] [place] [address] Mar, [facility] [place] [facility] [address] [id number] [place] [address] Mar, [facility] [place] [facility] [address] [id number] [place] [address] Feb, [facility] [place] [facility] [address] [id number] [place] [address] Dec, [facility] [place] [facility] [address] [id number] [place] [address] Dec, [facility] [place] [facility] [address] [id number] [place] [address] Dec, [facility] [address] [id number] [address] Nov, [facility] [address] [facility] [id number], [place] [address] Nov, [facility] [address] [id number], [place] [address] Nov, [facility] [address] [facility] [id number], [place] [address] Nov, [facility] [address] [id number] [address] Aug, [facility] [id number], [place] [address] Jun, [facility] [id number], [place] [address] May, [facility] [id number], [place] [address] Apr, [facility] [address] [id number], [place] [address] Mar, [facility] [address] [id number], [place] [address] May, IMMUNIZATIONS No Known Immunizations SOCIAL HISTORY Never Assessed REASON FOR VISIT Pharmacy Recommendations PLAN OF CARE VITAL SIGNS MEDICATIONS Medication Instructions Dosage Frequency Start Date End Date Duration Status Simvastatin 20 MG Orally Once a day 1 tablet in the evening 24h Active RESULTS No Results PROCEDURES No Known [...]
--- OUTSIDE RECORDS SUMMARY | 2018-05-13 07:36 | XMS REPORT ---
Author Author PRECIOUS BOTELLO [facility] Address [address] [place] [address] Care Team Providers Care Transfer Table Operator Name Role Phone PRECIOUS BOTELLO Unavailable PROBLEMS Type Condition ICD9-CM Code WKH55-HG Code Onset Dates Condition Status SNOMED Code Problem Status post closed fracture of hip Z87.81 Active 834270922 Problem Dementia in other diseases classified elsewhere without behavioral disturbance F02.80 Active 217346981 Problem Type 2 diabetes mellitus with other circulatory complication, without long-term current use of insulin E11.59 Active 78778707 Problem Panlobular emphysema J43.1 Active 7147636 Problem Enlarged prostate with lower urinary tract symptoms N40.1 Active 824673050348829 Problem Benign prostatic hyperplasia with lower urinary tract symptoms N40.1 Active 535522024 Problem Polydipsia R63.1 Active 09067924 Problem Depression F32.9 Active 29654101 Problem Type 2 diabetes mellitus with hyperglycemia E11.65 Active 026841250561961 Problem HTN (hypertension) I10 Active 51199579 Problem Bipolar disorder, unspecified F31.9 Active 71579546 Problem Acute left-sided low back pain with left-sided sciatica M54.42 Active 916371723 Problem Low back pain, unspecified back pain laterality, with sciatica presence unspecified M54.5 Active 531680191 Problem 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 Active 66734481 Problem Type 2 diabetes mellitus with diabetic polyneuropathy E11.42 Active 669307610 Problem GERD with esophagitis K21.0 Active 227742894 Problem Status post partial amputation of left foot Z89.432 Active 860917265 Problem Hammer toe, unspecified laterality M20.40 Active 775719325 Problem Tinea pedis, unspecified laterality B35.3 Active 0492227 Problem Other Alzheimers disease G30.8 Active 68827566 Problem Peripheral vascular disease due to secondary diabetes E13.51 Active 6046063 Problem Severe pain R52 Active 33194248 ALLERGIES No Information ENCOUNTERS Encounter Location Date Diagnosis [facility] [id number] [place] [address] 92201- 1727 Jan, Arthralgia, unspecified joint M25.[address] [id number] Jan, Left hip pain M25.552 ; Acute pain of left knee M25.562 and Tobacco abuse Z72.0 [facility] [id number] [place] [address] 92218- 1777 Jan, [facility] [address] [place] [id number] Jan, Tobacco abuse Z72.0 [facility] [id number] [place] [address] 99011- 1841 Dec, [facility] [id number] [place] [address] 74369- 5221 Dec, Arthralgia, unspecified joint M25.50 [facility] [id number] [place] [address] 74743- 0828 Dec, [facility] [id number] [place] [address] 29366- 9629 Dec, [facility] [id number] Dec, Dementia in other diseases classified elsewhere without behavioral disturbance F02.80 ; Peripheral vascular disease due to secondary diabetes E13.51 and 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 [facility] [id number] [place] [address] 37142- 5416 Nov, Arthralgia, unspecified joint M25.50 [facility] [id number] [place] [address] 08621- 0353 Nov, [facility] [id number] [place] [address] 79249- 3647 October, Arthralgia, unspecified joint M25.50 [facility] [address] [place] [id number] October, Arthralgia, unspecified joint M25.[address] [facility] [address] [id number] Sep, Weakness R53.1 ; Panlobular emphysema J43.1 ; Bipolar disorder, unspecified F31.9 ; Benign prostatic hyperplasia with lower urinary tract symptoms N40.1 and Frequency of micturition R35.0 [facility] [id number] [place] [address] 12030- 3026 Sep, [facility] [id number] [place] [address] 59855- 0869 Aug, [facility] [address] [id number] Jul, Dementia in other diseases classified elsewhere without behavioral disturbance F02.80 [facility] [id number] [place] [id number] Jul, [facility] [id number] [place] [address] 66863- 9596 Jun, Bipolar disorder, unspecified F31.[address] [facility] [address] [id number] Jun, Pneumonia due to infectious organism, unspecified laterality, unspecified part of lung J18.9 [facility] [address] [address]- 8636 Jun, [place] [id number] [place] [address] [id number] Jun, [facility] [address] [id number] Apr, Type 2 diabetes mellitus with other circulatory complication, without long -term current use of insulin E11.59 [facility] [id number] [place] [address] 35515 2546 Apr, [place] [facility] [id number] [place] [address] Feb, [place] [id number] [address] Feb, [facility] [address] [id number] Feb, Sore throat J02.9 and Polyuria R35.8 [facility] [id number] [place] [address] Jan, Bronchitis J40 [facility] [address] [id number] Dec, Cervicalgia M54.2 [facility] [address] [place] [address] 40859- 4489 October, Acute left-sided low back pain with left-sided sciatica M54.42 and Cervicalgia M54.2 [facility] [address] [address]- 7436 Sep, Acute left-sided low back pain with left-sided sciatica M54.42 [place] [id number] [place] [address] [id number] Sep, Cervicalgia M54.[address] [id number] Sep, Cervicalgia M54.2 and Acute left-sided low back pain with left-sided sciatica M54.42 [place] [id number] [place] [address] Sep, [facility] [address] [id number] Jul, Type 2 diabetes mellitus with hyperglycemia E11.65 ; Bipolar disorder F31.9 ; 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 ; Peripheral vascular disease due to secondary diabetes E13.51 and Status post partial amputation of left foot Z89.432 [facility] [address] 2451 Mar, [facility] [address] [address] 8059 Mar, [facility] [id number] [address]- 6258 Mar, [facility] [address] [id number] Mar, Dementia in other diseases classified elsewhere without behavioral disturbance F02.80 ; Polydipsia R63.1 ; HTN (hypertension) I10 ; Hypo- osmolality and hyponatremia E87.1 ; Type 2 diabetes mellitus with other circulatory complication, without long-term current use of insulin E11.59 ; Peripheral vascular disease due to secondary diabetes E13.51 and Bipolar disorder, unspecified F31.9 [facility] [address] [place] [address] 31947- 6273 Feb, [facility] [id number] [place] [address] 61236- 4926 Jan, [facility] [id number] [place] [address] 62702- 8285 Jan, [facility] [address] [id number] Jan, Pain of left hip joint M25.552 ; Tobacco abuse Z72.0 and Polydipsia R63.1 [place] [id number] [place] [address] 87272- 2446 Jan, [facility] [id number] [place] [address] 83265- 2879 Jan, [place] [id number] [place] [address] 05385- 3454 Dec, [facility] [id number] [place] [address] 92910- 4393 Dec, [facility] [address] [id number] Dec, Status post partial amputation of left foot Z89.432 and Peripheral vascular disease due to secondary diabetes E13.51 [facility] [address] [place] [address] 11209- 4609 Dec, [facility] [id number] [place] [address] 22806- 5801 Dec, [facility] [address] [address]- 6110 Dec, [facility] [address] [address]- 1429 Nov, [facility] [address] [address]- 7415 Nov, [facility] [address] [address] Nov, Severe pain R52 and Status post closed fracture of hip Z87.81 [facility] [address] [address]- 6796 Nov, [facility] [address] [address]- 2099 Nov, [facility] [address] [address]- 1610 October, Severe pain R52 [facility] [address] [address]- 3612 October, [facility] [address] [address]- 6317 October, Other Alzheimers disease G30.8 and Dementia in other diseases classified elsewhere without behavioral disturbance F02.80 [facility] [address] [address]- 3962 Sep, [facility] [address] [address]- 8357 Aug, [facility] [address] [id number] Aug, Status post partial amputation of left foot Z89.432 ; 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 and Peripheral vascular disease due to secondary diabetes E13.51 [facility] [id number] [address]- 7841 Jun, [facility] [id number] [address]- 7056 Jun, [facility] [address] [address] Jun, 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 and Status post partial amputation of left foot Z89.432 [facility] [address] [id number] May, Peripheral vascular disease due to secondary diabetes E13.51 ; Status post partial amputation of left foot Z89.432 and 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 [facility] [address] [place] [address] 24987- 1883 Mar, Gangrene associated with type II diabetes mellitus E11.52 [facility] [id number] [place] [address] 79326- 8936 Mar, [facility] [address] [place] [address] Mar, [facility] [id number] [place] [address] 70239- 6191 Feb, Nicotine abuse 305.1 [facility] [id number] [place] [address] 75285- 7822 Feb, [facility] [id number] [place] [address] 61016- 5741 Feb, [facility] [id number] [place] [address] 36639- 5417 Jan, [facility] [id number] [place] [address] 54485- 9944 Jan, Diabetes 250.00 ; Peripheral vascular disease 443.9 and Bipolar affective disorder 296.80 [facility] [id number] [place] [address] 493291- 1767 Dec, [facility] [id number] [place] [address] 90101- 2696 Dec, [facility] [id number] [place] [address] 442101- 6191 Dec, [facility] [address] [address]- 8462 Dec, [facility] [address] [address]- 7046 Dec, Diabetes mellitus without mention of complication, type II or unspecified type, uncontrolled 250.02 and Vertigo 780.4 [facility] [address] [address]- 5470 Nov, [facility] [address] 9638 October, Follow-up examination V67.9 ; Diabetes mellitus without mention of complication, type II or unspecified type, uncontrolled 250.02 and Upper respiratory infection 465.9 [facility] [address] [address]- 8176 October, [facility] [address] [address]- 2767 Sep, [facility] [address] [address]- 6468 Sep, [facility] [address] [address]- 6905 Aug, [facility] [address] [address]- 1426 Aug, [facility] [address] [address]- 7556 Aug, [facility] [id number] [address]- 2466 Jul, [facility] [address] [address]- 8676 Jul, [facility] [id number] [address]- 2546 Jul, [facility] [address] [address]- 4552 Jul, [facility] [place] [facility] [address] [id number] [place] [address]- 4884 May, [facility] [place] [facility] [address] [id number] [place] [address]- 4608 May, [facility] [place] [facility] [address] [id number] [place] [address]- 7752 May, [facility] [place] [facility] [address] [id number] [place] [address]- 3077 May, [facility] [place] [facility] [address] [id number] [place] [address]- 5145 Apr, [facility] [place] [facility] [address] [id number] [place] [address]- 7457 Apr, [facility] [place] [facility] [address] [facility] [id number] [place] [address]- 1160 Mar, [facility] [place] [facility] [address] [id number] [place] [address]- 7879 Mar, [facility] [place] [facility] [address] [facility] [id number] [place] [address]- 7897 Mar, [facility] [place] [facility] [address] [facility] [id number] [place] [address]- 8446 Mar, [facility] [place] [facility] [address] [id number] [place] [address]- 3625 29 Feb, 2014 [facility] [place] [facility] [address] [id number] [place] [address]- 2956 29 Feb, 2014 [facility] [place] [facility] [address] [id number] [place] [address]- 3337 23 Feb, 2014 [facility] [place] [facility] [address] [id number] [place] [address]- 9183 23 Feb, 2013 [facility] [place] [facility] [address] [id number] [place] [address]- 1468 22 Feb, 2013 [facility] [place] [facility] [address] [id number] [place] [address] 2544 22 Sep, 2013 [facility] [place] [facility] [address] [id number] [place] [address] 2546 16 Sep, 2013 [facility] [place] [facility] [address] [id number] [place] [address] 2546 16 Sep, 2013 [facility] [place] [facility] [address] [id number] [place] [address] 2546 16 Sep, 2013 [facility] [place] [facility] [address] [id number] [place] [address] 2546 16 Sep, 2013 [facility] [place] [facility] [address] [id number] [place] [address] 2546 16 Sep, 2013 [facility] [place] [facility] [address] [id number] [place] [address]- 6992 16 Sep, 2013 [facility] [place] [facility] [address] [id number] [place] [address] 2545 11 Sep, 2013 [facility] [place] [facility] [address] [id number] [place] [address] 254 11 Sep, 2013 [facility] [place] [facility] [address] [id number] [place] [address] 2548 10 Sep, 2013 [facility] [place] [facility] [address] [id number] [place] [address] 2549 10 Sep, 2013 [facility] [place] [facility] [address] [id number] [place] [address]- 2549 07 Sep, 2013 [facility] [place] [facility] [address] [id number] [place] [address] 2545 04 Sep, 2013 [facility] [place] [facility] [address] [id number] [place] [address] 2546 04 Sep, 2013 [facility] [place] [facility] [address] [id number] [place] [address] 2549 02 Sep, 2013 [facility] [place] [facility] [address] [id number] [place] [address]- 4512 Feb, [facility] [place] [facility] [address] [id number] [place] [address]- 8196 Jan, [facility] [place] [facility] [address] [id number] [place] [address]- 9436 Jan, [facility] [place] [facility] [address] [id number] [place] [address]- 2861 Jan, [facility] [place] [facility] [address] [id number] [place] [address]- 4220 Jan, [facility] [place] [facility] [address] [id number] [place] [address]- 9811 Nov, [facility] [place] [facility] [address] [id number] [place] [address]- 9063 Nov, [facility] [place] [facility] [address] [id number] [place] [address]- 5935 October, [facility] [place] [facility] [address] [id number] [place] [address]- 5580 October, [facility] [place] [facility] [address] [id number] [place] [address]- 8214 October, [facility] [place] [facility] [address] [id number] [place] [address]- 5243 October, [facility] [place] [facility] [address] [id number] [place] [address]- 9612 October, [facility] [place] [facility] [address] [id number] [place] [address]- 5133 October, [facility] [place] [facility] [address] [id number] [place] [address]- 6042 October, [facility] [place] [facility] [address] [id number] [place] [address]- 2718 October, [facility] [place] [facility] [address] [id number] [place] [address]- 9640 Sep, [facility] [place] [facility] [address] [id number] [place] [address]- 6631 15 Sep, 2013 [facility] [address] [id number] [place] 1168 Sep, [facility] [place] [facility] [address] [id number] [place] 7161 Sep, [facility] [address] [id number] [place] 3333 Jul, [facility] [place] [facility] [address] [id number] [place] [address]- 7824 Jul, [facility] [address] [id number] [place] 5809 May, [facility] [place] [facility] [address] [id number] [place] [address]- 0721 May, [facility] [address] [id number] [place] [address]- 2424 Apr, [facility] [address] [id number] [place] [address]- 2428 Apr, [facility] [place] [facility] [address] [facility] [id number] [place] [address]- 2746 Apr, [facility] [address] [facility] [id number] [place] [address]- 8028 Apr, [facility] [place] [facility] [address] [id number] [place] [address]- 8610 Mar, [facility] [place] [facility] [address] [id number] [place] [address]- 3276 Mar, [facility] [place] [facility] [address] [id number] [place] [address]- 0553 Mar, [facility] [place] [facility] [address] [id number] [place] [address] 2541 Mar, [facility] [place] [facility] [address] [id number] [place] [address]- 3267 Feb, [facility] [place] [facility] [address] [id number] [place] [address]- 8184 Jan, [facility] [address] [id number] [place] [address]- 4709 Jan, [facility] [address] [id number] [place] [address]- 5712 Jan, [facility] [address] [id number] [place] [address]- 9073 Dec, [facility] [address] [id number] [place] [address]- 5652 October, [facility] [address] [id number] [place] [address]- 3902 October, [facility] [address] [id number] [place] [address]- 2378 October, [facility] [address] [id number] [place] [address]- 6233 October, [facility] [address] [id number] [place] [address]- 2644 October, [facility] [address] [id number] [place] [address]- 0037 October, [facility] [address] [id number] [place] [address]- 0610 Sep, [facility] [place] [facility] [address] [id number] [place] [address]- 6338 Sep, [facility] [place] [facility] [address] [id number] [place] [address]- 5558 Jul, [facility] [place] [facility] [address] [id number] [place] [address]- 3166 Jun, [facility] [place] [facility] [address] [id number] [place] [address]- 5628 Jun, [facility] [place] [facility] [address] [id number] [place] [address]- 1118 Jun, [facility] [place] [facility] [address] [id number] [place] [address]- 8827 May, [facility] [place] [facility] [address] [id number] [place] [address]- 1666 May, [facility] [place] [facility] [address] [id number] [place] 7996 May, [facility] [place] [facility] [address] [id number] [place] [address] May, [facility] [place] [facility] [address] [id number] [place] [address] May, [facility] [place] [facility] [address] [id number] [place] [address] May, [facility] [place] [facility] [address] [facility] [id number] [place] [address] Mar, [facility] [place] [facility] [address] [id number] [place] [address] Mar, [facility] [place] [facility] [address] [facility] [id number] [place] [address] Mar, [facility] [place] [facility] [address] [facility] [id number] [place] [address] Mar, [facility] [place] [facility] [address] [facility] [id number] [place] [address] Feb, [facility] [place] [facility] [address] [id number] [place] [address] Dec, [facility] [place] [facility] [address] [id number] [place] [address] Dec, [facility] [place] [facility] [address] [facility] [id number] [place] [address] Dec, [facility] [place] [facility] [address] [facility] [id number] [place] [address] Nov, [facility] [place] [facility] [address] [id number] [place] [id number] Nov, [facility] [address] [id number] [place] [address] Nov, [facility] [address] [id number] [place] [address] Nov, [facility] [id number] [address] Aug, [facility] [id number] [address] Jun, [facility] [id number] [place] [address] May, [facility] [id number] [address] Apr, [facility] [id number] [address] Mar, [facility] [address] [id number] [address] May, IMMUNIZATIONS No Known Immunizations SOCIAL HISTORY Never Assessed REASON FOR VISIT Medication List Upated PLAN OF CARE VITAL SIGNS MEDICATIONS Medication Instructions Dosage Frequency Start Date End Date Duration Status Vitamin D3 2000 UNIT Orally Once a day 1 capsule 24h Active Stress B Complex/Zinc by oral route Once a day 1 tablet 24h Active Cough Drops 5.8 MG Mouth/Throat every 2-4 hrs 1 lozenge as needed Active Calmoseptine 0.44-20.6 % Externally to buttocks as needed Active Albuterol Sulfate 1.25 MG/3ML Inhalation every 12 hours 3 ml as needed 12h Active Actos 45 MG Orally Once a day 1 tablet 24h Apr, Active Clopidogrel Bisulfate 75 MG TAKE 1 TABLET BY MOUTH ONCE DAILY 30 Active Folic Acid 1 MG Orally Once a day 1 tablet 24h Active Simvastatin 40 MG TAKE 1 TABLET BY MOUTH AT BEDTIME 30 Active Latuda 20 MG TAKE 1 TABLET BY MOUTH EVERY DAY 30 Active Gabapentin 300 MG Orally 3 times a day 1 capsule 8h Active Tylenol Extra Strength 500 mg Orally every 6 hrs 1-2 tablets as needed 6h Sep, Active Tums 500 mg Orally every 12 hrs 1 tablet as needed 12h Active [place]ota-Tussin 100 MG/5ML Orally every 6 hrs 15 ml as needed 6h Active Lactobacillus Orally Once a day 1 tablet 24h Active Venlafaxine HCl ER 150 MG TAKE 1 CAPSULE BY MOUTH ONCE DAILY 30 Active MiraLax 17 gm/dose Orally once daily as needed 17 grams mixed in 8 oz of water or juice Active Exelon 1.5 MG Orally Twice a day 1 capsule with food 12h October, 30 day(s) Active Metformin HCl 1000 MG TAKE 1 TABLET BY MOUTH TWICE DAILY 30 Active Aspirin Adult Low Dose 81 MG Orally Once a day 1 tablet 24h Active Ferrous Sulfate 325 (65 Fe) MG Orally Once a day 1 tablet 24h Active Tramadol HCl 50 mg Orally 4 times a day 1 tablet 6h October, 28 days Active Tamsulosin HCl 0.4 MG TAKE [...]
--- OUTSIDE RECORDS SUMMARY | 2018-05-13 07:36 | XMS REPORT ---
Author Author PRECIOUS BOTELLO [facility] Address [address] [place] [address] Care Team Providers Care Supervisor Hardboard Name Role Phone PRECIOUS BOTELLO Unavailable PROBLEMS Type Condition ICD9-CM Code OKF27-QV Code Onset Dates Condition Status SNOMED Code Problem Status post closed fracture of hip Z87.81 Active 765862091 Problem Dementia in other diseases classified elsewhere without behavioral disturbance F02.80 Active 466947066 Problem Type 2 diabetes mellitus with other circulatory complication, without long-term current use of insulin E11.59 Active 94557430 Problem Panlobular emphysema J43.1 Active 4768396 Problem Enlarged prostate with lower urinary tract symptoms N40.1 Active [id number] Problem Benign prostatic hyperplasia with lower urinary tract symptoms N40.1 Active 382440033 Problem Polydipsia R63.1 Active 38759677 Problem Depression F32.9 Active 35075767 Problem Type 2 diabetes mellitus with hyperglycemia E11.65 Active 469502332905114 Problem HTN (hypertension) I10 Active 55585815 Problem Bipolar disorder, unspecified F31.9 Active 19733609 Problem Acute left-sided low back pain with left-sided sciatica M54.42 Active 434325098 Problem Low back pain, unspecified back pain laterality, with sciatica presence unspecified M54.5 Active 540200459 Problem 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 Active 94492116 Problem Type 2 diabetes mellitus with diabetic polyneuropathy E11.42 Active 795081565 Problem GERD with esophagitis K21.0 Active 847645438 Problem Status post partial amputation of left foot Z89.432 Active 282893891 Problem Hammer toe, unspecified laterality M20.40 Active 372648221 Problem Tinea pedis, unspecified laterality B35.3 Active 8825628 Problem Other Alzheimers disease G30.8 Active 47475312 Problem Peripheral vascular disease due to secondary diabetes E13.51 Active 2888161 Problem Severe pain R52 Active 73353205 ALLERGIES No Information ENCOUNTERS Encounter Location Date Diagnosis [facility] [address] [place] [id number] Jan, Left hip pain M25.552 ; Acute pain of left knee M25.562 and Tobacco abuse Z72.0 [facility] [address], [place] [address] Jan, [facility] [address] [place] [id number] Jan, Tobacco abuse Z72.0 [facility] [id number] [place] [address] 43096- 9102 Dec, [facility] [id number] [place] [address] 24008- 7633 Dec, Arthralgia, unspecified joint M25.50 [facility] [id number] [place] [address] 39463- 6784 Dec, [facility] [id number] [place] [address] 46098- 0770 Dec, [facility] [address] [place] [id number] Dec, Dementia in other diseases classified elsewhere without behavioral disturbance F02.80 ; Peripheral vascular disease due to secondary diabetes E13.51 and 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 [facility] [id number] [place] [address] 79057- 8580 Nov, Arthralgia, unspecified joint M25.50 [facility] [address], [place] [address] 0[address] Nov, [facility] [id number] [place] [address] 83775- 8185 October, Arthralgia, unspecified joint M25.50 [facility] [address] [place] [id number] October, Arthralgia, unspecified joint M25.50 [facility] [address] [place] [address] Sep, Weakness R53.1 ; Panlobular emphysema J43.1 ; Bipolar disorder, unspecified F31.9 ; Benign prostatic hyperplasia with lower urinary tract symptoms N40.1 and Frequency of micturition R35.0 [facility] [address], [place] [address] 2466 Sep, [facility] [address] [place] [address] 85239- 3773 Aug, [facility] [address] [place] [id number] Jul, Dementia in other diseases classified elsewhere without behavioral disturbance F02.80 [facility] [id number] [place] [id number] Jul, [facility] [address] [place] [id number]- 1617 Jun, Bipolar disorder, unspecified F31.[address] [id number] Jun, Pneumonia due to infectious organism, unspecified laterality, unspecified part of lung J18.9 [facility] [address], [place] [address] Jun, [facility] [id number] [address] Jun, [facility] [id number] Apr, Type 2 diabetes mellitus with other circulatory complication, without long -term current use of insulin E11.59 [facility] [address], [place] [address] 8016 Apr, [facility] [id number] [place] [id number] Feb, [facility] [id number] [id number] Feb, [facility] [address] [place] [id number] Feb, Sore throat J02.9 and Polyuria R35.8 [facility] [id number] [address] Jan, Bronchitis J[address] [facility] [id number] Dec, Cervicalgia M54.2 [facility] [address] [place] [address] 66648- 0416 October, Acute left-sided low back pain with left-sided sciatica M54.42 and Cervicalgia M54.2 [facility] [address], [place] [address] 0216 Sep, Acute left-sided low back pain with left-sided sciatica M54.42 [facility] [id number] [place] [id number] Sep, Cervicalgia M54.[address] [facility] [address] [id number] Sep, Cervicalgia M54.2 and Acute left-sided low back pain with left-sided sciatica M54.42 [facility] [id number] [place] [id number] Sep, [address] [id number] Jul, Type 2 diabetes mellitus with hyperglycemia E11.65 ; Bipolar disorder F31.9 ; 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 ; Peripheral vascular disease due to secondary diabetes E13.51 and Status post partial amputation of left foot Z89.432 [facility] [id number] [address] Mar, [facility] [address] [place] [address] 083761- 2249 Mar, [facility] [address] [address] 78[address] Mar, [facility] [address] [id number] Mar, Dementia in other diseases classified elsewhere without behavioral disturbance F02.80 ; Polydipsia R63.1 ; HTN (hypertension) I10 ; Hypo- osmolality and hyponatremia E87.1 ; Type 2 diabetes mellitus with other circulatory complication, without long-term current use of insulin E11.59 ; Peripheral vascular disease due to secondary diabetes E13.51 and Bipolar disorder, unspecified F31.9 [facility] [id number] [place] [address] 01560- 3543 Feb, [facility] [id number] [place] [address] 79290- 7730 Jan, [facility] [id number] [place] [address] 32169- 6630 Jan, [facility] [address] [place] [id number] Jan, Pain of left hip joint M25.552 ; Tobacco abuse Z72.0 and Polydipsia R63.1 [facility] [id number] [place] [address] 15161- 3470 Jan, [facility] [id number] [place] [address] 95145- 6079 Jan, [facility] [id number] [place] [address] 29632- 6137 Dec, [facility] [id number] [place] [address] 50717- 3469 Dec, [facility] [address] [place] [address] Dec, Status post partial amputation of left foot Z89.432 and Peripheral vascular disease due to secondary diabetes E13.51 [facility] [id number] [place] [address] 64646- 3440 Dec, [facility] [id number] [place] [address] 39065- 8444 Dec, [facility] [id number] [place] [address] 83627- 6934 Dec, [facility] [address], [place] [address]- 0809 Nov, [facility] [address] [place] [address] 68792- 2852 Nov, [facility] [address] [place] [id number] Nov, Severe pain R52 and Status post closed fracture of hip Z87.81 [facility] [id number] [place] [address] 41835- 6939 Nov, [facility] [address], [place] [address]- 3706 Nov, [facility] [address] [place] [address] 12987- 6621 October, Severe pain R52 [facility] [id number] [place] [address] 68530- 6968 October, [facility] [id number] [place] [address] 66083- 6449 October, Other Alzheimers disease G30.8 and Dementia in other diseases classified elsewhere without behavioral disturbance F02.80 [facility] [address], [place] [address]- 5907 Sep, [facility] [address], [place] [address]- 6640 Aug, [facility] [address] [place] [id number] Aug, Status post partial amputation of left foot Z89.432 ; 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 and Peripheral vascular disease due to secondary diabetes E13.51 [facility] [address] [place] [address] 73287- 1363 Jun, [facility] [address], [place] [address]- 6080 Jun, [facility] [address] [place] [address] Jun, 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 and Status post partial amputation of left foot Z89.432 [facility] [address] [place] [address] May, Peripheral vascular disease due to secondary diabetes E13.51 ; Status post partial amputation of left foot Z89.432 and 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 [facility] [address], [place] [address] 5633 Mar, Gangrene associated with type II diabetes mellitus E11.52 [facility] [address] [place] [address] 52503- 7258 Mar, [facility] [address] [place] [id number] Mar, [facility] [address] [place] [address] 77513- 1986 Feb, Nicotine abuse 305.1 [facility] [id number] [place] [address] 79858- 3450 Feb, [facility] [address] [place] [address] 65276- 5855 Feb, [facility] [id number] [place] [address] 36528- 8134 Jan, [facility] [address], [place] [address]- 8206 Jan, Diabetes 250.00 ; Peripheral vascular disease 443.9 and Bipolar affective disorder 296.80 [facility] [address], [place] [address]- 4219 Dec, [facility] [id number] [place] [address] 46002- 2900 Dec, [facility] [address] [address] 8145 Dec, [facility] [address], [place] [address]- 2631 Dec, [facility] [address], [place] [address]- 2584 Dec, Diabetes mellitus without mention of complication, type II or unspecified type, uncontrolled 250.02 and Vertigo 780.4 [facility] [address], [place] [address]- 6723 Nov, [facility] [id number] [place] [address]- 3366 October, Follow-up examination V67.9 ; Diabetes mellitus without mention of complication, type II or unspecified type, uncontrolled 250.02 and Upper respiratory infection 465.9 [facility] [address], [place] [address]- 1336 October, [facility] [address], [place] [address]- 3992 Sep, [facility] [id number] [address]- 4122 Sep, [facility] [address], [place] [address]- 3918 Aug, [facility] [address]- 7735 Aug, [facility] [address], [place] [address]- 1051 Aug, [facility] [address], [place] [address]- 8946 Jul, [facility] [address], [place] [address]- 6796 Jul, [facility] [address], [place] [address]- 8146 Jul, [facility] [address], [place] [address]- 2546 Jul, [facility] [address], [place] [address]- 8513 May, [facility] [place] [facility] [address] [id number] [place] [address]- 1543 May, [facility] [place] [facility] [address] [id number] [place] [address]- 5753 May, [facility] [place] [facility] [address] [id number] [place] [address]- 9457 May, [facility] [place] [facility] [address] [id number] [place] [address]- 2901 Apr, [facility] [place] [facility] [address] [id number] [place] [address]- 2296 Apr, [facility] [place] [facility] [address] [id number] [place] [address]- 0449 Mar, [facility] [place] [facility] [address] [id number] [place] [address]- 5207 Mar, [facility] [place] [facility] [address] [id number] [place] [address]- 8907 Mar, [facility] [place] [facility] [address] [id number] [place] [address]- 6874 Mar, [facility] [place] [facility] [address] [id number] [place] [address]- 0785 29 Feb, 2014 [facility] [place] [facility] [address] [id number] [place] [address]- 8715 29 Feb, 2014 [facility] [place] [facility] [address] [id number], [place] [address]- 1307 23 Feb, 2014 [facility] [place] [facility] [address] [id number] [place] [address]- 2540 23 Feb, 2014 [facility] [place] [facility] [address] [id number] [place] [address]- 6660 22 Feb, 2014 [facility] [place] [facility] [address] [id number] [place] [address]- 4427 22 Feb, 2014 [facility] [place] [facility] [address] [id number] [place] [address]- 5845 16 Sep, 2013 [facility] [place] [facility] [address] [id number] [place] [address] 2546 16 Sep, 2013 [facility] [place] [facility] [address] [id number] [place] [address]- 8816 16 Sep, 2013 [facility] [place] [facility] [address] [id number] [place] [address] 2546 16 Sep, 2013 [facility] [place] [facility] [address] [id number] [place] [address]- 4249 16 Sep, 2013 [facility] [place] [facility] [address] [id number] [place] [address]- 2875 16 Sep, 2013 [facility] [place] [facility] [address] [id number] [place] [address]- 9863 11 Sep, 2013 [facility] [place] [facility] [address] [id number] [place] [address]- 5840 11 Sep, 2013 [facility] [place] [facility] [address] [id number] [place] [address]- 6300 10 Sep, 2013 [facility] [place] [facility] [address] [id number] [place] [address]- 9392 10 Sep, 2013 [facility] [place] [facility] [address] [id number] [place] [address]- 5522 07 Sep, 2013 [facility] [place] [facility] [address] [id number] [place] [address] 2543 04 Sep, 2013 [facility] [place] [facility] [address] [id number], [place] [address]- 2549 04 Sep, 2013 [facility] [place] [facility] [address] [id number] [place] [address]- 5620 02 Sep, 2013 [facility] [place] [facility] [address] [id number] [place] [address]- 2883 02 Sep, 2013 [facility] [place] [facility] [address] [id number] [place] [address]- 4868 Jan, 2013 [facility] [place] [facility] [address] [id number] [place] [address]- 5551 Jan, [facility] [place] [facility] [address] [id number] [place] [address]- 5452 Jan, [facility] [place] [facility] [address] [id number] [place] [address]- 2916 Jan, [facility] [place] [facility] [address] [id number] [place] [address]- 0526 Nov, [facility] [place] [facility] [address] [id number] [place] [address]- 5356 Nov, [facility] [place] [facility] [address] [id number] [place] [address]- 3624 October, [facility] [place] [facility] [address] [id number] [place] [address]- 3606 October, [facility] [place] [facility] [address] [id number] [place] [address]- 2010 October, [facility] [place] [facility] [address] [id number] [place] [address]- 3270 October, [facility] [place] [facility] [address] [id number] [place] [address]- 3915 October, [facility] [place] [facility] [address] [id number] [place] [address]- 3930 October, [facility] [place] [facility] [address] [id number] [place] [address]- 7132 October, [facility] [place] [facility] [address] [id number] [place] [address]- 1048 October, [facility] [place] [facility] [address] [id number] [place]- 3219 Sep, [facility] [place] [facility] [address] [id number] [place] 6653 Sep, [facility] [place] [facility] [address] [id number] [place] [address]- 6906 Sep, [facility] [place] [facility] [address] [id number] [place] [address]- 4061 Sep, [facility] [place] [facility] [address] [id number] [place] [address]- 0617 Jul, [facility] [place] [facility] [address] [facility] [id number] [place] [address]- 0876 Jul, [facility] [place] [facility] [address] [id number], [place] [address]- 7271 May, [facility] [place] [facility] [address] [id number] [place] [address]- 4932 May, [facility] [place] [facility] [address] [facility] [id number][place]- 1109 Apr, [facility] [place] [facility] [address] [facility] [id number][place]- 9816 Apr, [facility] [place] [facility] [address] [id number], [place] [address]- 3208 Apr, [facility] [place] [facility] [address] [id number], [place] [address]- 8662 Apr, [facility] [place] [facility] [address] [facility] [id number], [place] [address]- 9104 Mar, [facility] [place] [facility] [address] [id number], [place] [address]- 5579 Mar, [facility] [place] [facility] [address] [id number], [place] [address]- 5853 Mar, [facility] [place] [facility] [address] [id number], [place] [address]- 8255 Mar, [facility] [place] [facility] [address] [facility] [id number], [place] [address]- 0436 Feb, [facility] [place] [facility] [address] [facility] [id number], [place] [address]- 2585 Jan, [facility] [place] [facility] [address] [id number] [place] [address]- 4879 Jan, [facility] [address] [id number] [place] [address]- 3762 Jan, [facility] [address] [id number] [place] [address] 2546 Dec, [facility] [address] [id number] [place] [address]- 9366 October, [facility] [address] [id number] [place] [address]- 0328 October, [facility] [address] [id number] [place] [address]- 9866 October, [facility] [address] [id number] [place] [address]- 7776 October, [facility] [address] [id number] [place] [address]- 1413 October, [facility] [address] [id number] [place] [address]- 9747 October, [facility] [address] [id number] [place] [address]- 4658 Sep, [facility] [address] [id number] [place] [address]- 9574 Sep, [facility] [address] [id number] [place] [address]- 5491 Jul, [facility] [address] [id number] [place] [address]- 0527 Jun, [facility] [address] [id number] [place] [address]- 3707 Jun, [facility] [address] [id number] [place] [address]- 2546 Jun, [facility] [address] [id number] [place] [address]- 8973 May, [facility] [place] [facility] [address] [id number] [place] [address]- 2508 May, [facility] [place] [facility] [address] [id number] [place] [address]- 8484 May, [facility] [place] [facility] [address] [id number] [place] 5059 May, [facility] [place] [facility] [address] [id number] [place] [address]- 2317 May, [facility] [place] [facility] [address] [id number] [place] [address]- 2054 May, [facility] [place] [facility] [address] [id number] [place] [address]- 3694 Mar, [facility] [place] [facility] [address] [id number] [place] [address]- 6028 Mar, [facility] [place] [facility] [address] [id number] [place] [address]- 9257 Mar, [facility] [place] [facility] [address] [id number] [place] [address] Mar, [facility] [place] [facility] [address] [facility] [id number], [place] [address] Feb, [facility] [place] [facility] [address] [id number], [place] [address] Dec, [facility] [place] [facility] [address] [id number], [place] [address] Dec, [facility] [place] [facility] [address] [id number] [address] [address] Dec, [facility] [place] [facility] [address] [id number], [place] [address] Nov, [facility] [place] [facility] [address] [id number], [place] [address] Nov, [facility] [place] [facility] [address] [id number], [place] [address] Nov, [facility] [address] [id number], [place] [address] Nov, [facility] [address] [id number], [place] [address] Aug, [facility] [address] [id number], [place] [address] Jun, [facility] [id number], [place] [address] May, [facility] [id number], [place] [address] Apr, [facility] [id number], [place] [address] Mar, [facility] [id number], [place] [address] May, IMMUNIZATIONS No Known Immunizations SOCIAL HISTORY Never Assessed REASON FOR VISIT Controlled Med Refill 11/19/17 PLAN OF CARE VITAL SIGNS MEDICATIONS Medication [...]
--- OUTSIDE RECORDS SUMMARY | 2018-05-13 07:37 | XMS REPORT ---
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 Role Phone PRECIOUS BOTELLO Unavailable PROBLEMS Type Condition ICD9-CM Code YFZ32-LP Code Onset Dates Condition Status SNOMED Code Problem Status post closed fracture of hip Z87.81 Active 144820484 Problem Dementia in other diseases classified elsewhere without behavioral disturbance F02.80 Active 641146478 Problem Type 2 diabetes mellitus with other circulatory complication, without long-term current use of insulin E11.59 Active 50591869 Problem Panlobular emphysema J43.1 Active 8628798 Problem Enlarged prostate with lower urinary tract symptoms N40.1 Active 917536256009285 Problem Benign prostatic hyperplasia with lower urinary tract symptoms N40.1 Active 642819324 Problem Polydipsia R63.1 Active 88177753 Problem Depression F32.9 Active 14273575 Problem Type 2 diabetes mellitus with hyperglycemia E11.65 Active 666888751832245 Problem HTN (hypertension) I10 Active 38304940 Problem Bipolar disorder, unspecified F31.9 Active 40603144 Problem Acute left-sided low back pain with left-sided sciatica M54.42 Active 153229265 Problem Low back pain, unspecified back pain laterality, with sciatica presence unspecified M54.5 Active 941868561 Problem 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 Active 50270933 Problem Type 2 diabetes mellitus with diabetic polyneuropathy E11.42 Active 078205083 Problem GERD with esophagitis K21.0 Active 840955907 Problem Status post partial amputation of left foot Z89.432 Active 186693068 Problem Hammer toe, unspecified laterality M20.40 Active 483417215 Problem Tinea pedis, unspecified laterality B35.3 Active 9596143 Problem Other Alzheimers disease G30.8 Active 29084110 Problem Peripheral vascular disease due to secondary diabetes E13.51 Active 5367340 Problem Severe pain R52 Active 75431661 ALLERGIES No Information ENCOUNTERS Encounter Location Date Diagnosis [facility] [address] [id number] Jan, Left hip pain M25.552 ; Acute pain of left knee M25.562 and Tobacco abuse Z72.0 [facility] [address], [place] [address] Jan, [facility] [address] [id number] Jan, Tobacco abuse Z72.0 [place] [address] [place] [id number] [place] [address] 84884- 1338 Dec, [facility] [id number] [place] [address] 08001- 8971 Dec, Arthralgia, unspecified joint M25.50 [facility] [id number] [place] [address] 88182- 9646 Dec, [facility] [id number] [place] [address] 16771- 3353 Dec, [facility] [address] [place] [id number] Dec, Dementia in other diseases classified elsewhere without behavioral disturbance F02.80 ; Peripheral vascular disease due to secondary diabetes E13.51 and 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 [facility] [id number] [place] [address] 63315- 9738 Nov, Arthralgia, unspecified joint M25.50 [place] [address], [place] [address] 7567 Nov, [facility] [id number] [place] [address] 53723- 3204 October, Arthralgia, unspecified joint M25.50 [facility] [address] [id number] October, Arthralgia, unspecified joint M25.50 [facility] [address] [id number] Sep, Weakness R53.1 ; Panlobular emphysema J43.1 ; Bipolar disorder, unspecified F31.9 ; Benign prostatic hyperplasia with lower urinary tract symptoms N40.1 and Frequency of micturition R35.0 [facility] [address], [place] [address] Sep, [facility] [address] [place] [address] 74807- 5407 Aug, [facility] [address] [id number] Jul, Dementia in other diseases classified elsewhere without behavioral disturbance F02.80 [place] [address] [place] [id number] [place] [id number] Jul, [facility] [address] [place] [address] [id number]- 0202 Jun, Bipolar disorder, unspecified F31.[address] [id number] Jun, Pneumonia due to infectious organism, unspecified laterality, unspecified part of lung J18.9 [facility] [address], [place] [address] 0266 Jun, [facility] [id number] [address] Jun, [facility] [id number] Apr, Type 2 diabetes mellitus with other circulatory complication, without long -term current use of insulin E11.59 [facility] [address], [place] [address] Apr, [facility] [facility] [address] [address] [id number] [place] [address] [id number] Feb, [place] [id number] [address] Feb, [facility] [address] [id number] Feb, Sore throat J02.9 and Polyuria R35.8 [facility] [id number] [address] Jan, [facility]chitis J40 [facility] [id number] Dec, Cervicalgia M54.2 [facility] [address] [place] [address] 57021- 2386 October, Acute left-sided low back pain with left-sided sciatica M54.42 and Cervicalgia M54.2 [facility] [address], [place] [address] 3076 Sep, Acute left-sided low back pain with left-sided sciatica M54.42 [facility] [id number] [place] [address] [id number] Sep, Cervicalgia M54.[address] [facility] [address] [id number] Sep, Cervicalgia M54.2 and Acute left-sided low back pain with left-sided sciatica M54.42 [facility] [address] [id number] [place] [id number] Sep, [address] [id number] Jul, Type 2 diabetes mellitus with hyperglycemia E11.65 ; Bipolar disorder F31.9 ; 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 ; Peripheral vascular disease due to secondary diabetes E13.51 and Status post partial amputation of left foot Z89.432 [facility] [id number] [address] Mar, [facility] [address] [place] [address] 099460- 5759 Mar, [facility] [address] [address] Mar, [facility] [address] [id number] Mar, Dementia in other diseases classified elsewhere without behavioral disturbance F02.80 ; Polydipsia R63.1 ; HTN (hypertension) I10 ; Hypo- osmolality and hyponatremia E87.1 ; Type 2 diabetes mellitus with other circulatory complication, without long-term current use of insulin E11.59 ; Peripheral vascular disease due to secondary diabetes E13.51 and Bipolar disorder, unspecified F31.9 [facility] [id number] [place] [address] 01451- 3857 Feb, [facility] [id number] [place] [address] 27719- 5758 Jan, [facility] [id number] [place] [address] 65148- 7630 Jan, [facility] [address] [address] Jan, Pain of left hip joint M25.552 ; Tobacco abuse Z72.0 and Polydipsia R63.1 [facility] [id number] [place] [address] 87333- 1788 Jan, [facility] [id number] [place] [address] 91397- 6148 Jan, [facility] [id number] [place] [address] 05484- 9993 Dec, [facility] [id number] [place] [address] 54976- 9550 Dec, [facility] [address] [id number] Dec, Status post partial amputation of left foot Z89.432 and Peripheral vascular disease due to secondary diabetes E13.51 [facility] [id number] [place] [address] 36693- 8745 Dec, [facility] [id number] [place] [address] 75937- 2494 Dec, [facility] [id number] [place] [address] 03739- 5198 Dec, [facility] [address] [address]- 0684 Nov, [facility] [address] [place] [address] 29470- 1803 Nov, [facility] [address] [id number] Nov, Severe pain R52 and Status post closed fracture of hip Z87.81 [facility] [id number] [place] [address] 56713- 1455 Nov, [facility] [address], [place] [address]- 6435 Nov, [facility] [address] [place] [address] 35621- 6790 October, Severe pain R52 [facility] [id number] [place] [address] 25831- 9527 October, [facility] [id number] [place] [address] 09596- 4559 October, Other Alzheimers disease G30.8 and Dementia in other diseases classified elsewhere without behavioral disturbance F02.80 [facility] [address], [place] [address]- 9286 Sep, [facility] [address], [place] [address] 0864 Aug, [facility] [address] [id number] Aug, Status post partial amputation of left foot Z89.432 ; 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 and Peripheral vascular disease due to secondary diabetes E13.51 [facility] [address] [place] [address] 17160- 8056 Jun, [facility] [address] [address]- 1195 Jun, [facility] [address] [address] Jun, 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 and Status post partial amputation of left foot Z89.432 [facility] [address] [id number] May, Peripheral vascular disease due to secondary diabetes E13.51 ; Status post partial amputation of left foot Z89.432 and 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 [facility] [address], [place] [address]- 1796 Mar, Gangrene associated with type II diabetes mellitus E11.52 [facility] [address] [place] [address] 42398- 4836 Mar, [facility] [address] [id number] Mar, [facility] [id number] [place] [address] 16022- 4731 Feb, Nicotine abuse 305.1 [facility] [id number] [place] [address] 46206- 4935 Feb, [facility] [id number] [place] [address] 52384- 3419 Feb, [facility] [id number] [place] [address] 59258- 7120 Jan, [facility] [address], [place] [address]- 9371 Jan, Diabetes 250.00 ; Peripheral vascular disease 443.9 and Bipolar affective disorder 296.80 [facility] [address], [place] [address]- 8210 Dec, [facility] [id number] [place] [address] 89266- 9889 Dec, [facility] [address] [address] 4759 Dec, [facility] [address], [place] [address]- 6628 Dec, [facility] [address], [place] [address]- 3235 Dec, Diabetes mellitus without mention of complication, type II or unspecified type, uncontrolled 250.02 and Vertigo 780.4 [facility] [address], [place] [address]- 5934 Nov, [facility] [id number] [address]- 9266 October, Follow-up examination V67.9 ; Diabetes mellitus without mention of complication, type II or unspecified type, uncontrolled 250.02 and Upper respiratory infection 465.9 [facility] [address], [place] [address]- 7616 October, [facility] [address], [place] [address]- 4673 Sep, [facility] [id number] [address]- 0822 Sep, [facility] [address], [place] [address]- 1856 Aug, [facility] [address] 6687 Aug, [facility] [address], [place] [address]- 1748 Aug, [facility] [address], [place] [address]- 0036 Jul, [facility] [address], [place] [address]- 0606 Jul, [facility] [address], [place] [address]- 8966 Jul, [facility] [address], [place] [address]- 2546 Jul, [facility] [address], [place] [address]- 0156 May, [facility] [place] [facility] [address] [id number] [place] [address]- 7145 May, [facility] [place] [facility] [address] [id number] [place] [address]- 8865 May, [facility] [place] [facility] [address] [id number] [place] [address]- 5094 May, [facility] [place] [facility] [address] [id number] [place] [address]- 9608 Apr, [facility] [place] [facility] [address] [id number] [place] [address]- 8280 Apr, [facility] [place] [facility] [address] [id number] [place] [address]- 0502 Mar, [facility] [place] [facility] [address] [id number] [place] [address]- 7916 Mar, [facility] [place] [facility] [address] [id number] [place] [address]- 5141 Mar, [facility] [place] [facility] [address] [id number] [place] [address]- 2885 Mar, [facility] [place] [facility] [address] [id number] [place] [address]- 8053 29 Feb, 2014 [facility] [place] [facility] [address] [id number] [place] [address]- 4266 29 Feb, 2014 [facility] [place] [facility] [address] [id number], [place] [address]- 8969 23 Feb, 2014 [facility] [place] [facility] [address] [id number] [place] [address]- 254 23 Feb, 2014 [facility] [place] [facility] [address] [id number] [place] [address]- 3463 22 Feb, 2014 [facility] [place] [facility] [address] [id number] [place] [address]- 8980 22 Feb, 2014 [facility] [place] [facility] [address] [id number] [place] [address]- 8382 16 Sep, 2013 [facility] [place] [facility] [address] [id number] [place] [address] 2546 16 Sep, 2013 [facility] [place] [facility] [address] [id number] [place] [address]- 4856 16 Sep, 2013 [facility] [place] [facility] [address] [id number] [place] [address] 2546 16 Sep, 2013 [facility] [place] [facility] [address] [id number] [place] [address]- 3912 16 Sep, 2013 [facility] [place] [facility] [address] [id number] [place] [address]- 2062 16 Sep, 2013 [facility] [place] [facility] [address] [id number] [place] [address]- 7820 11 Sep, 2013 [facility] [place] [facility] [address] [id number] [place] [address]- 0037 11 Sep, 2013 [facility] [place] [facility] [address] [id number] [place] [address]- 5084 10 Sep, 2013 [facility] [place] [facility] [address] [id number] [place] [address]- 5324 10 Sep, 2013 [facility] [place] [facility] [address] [id number] [place] [address]- 8537 07 Sep, 2013 [facility] [place] [facility] [address] [id number] [place] [address] 2549 04 Sep, 2013 [facility] [place] [facility] [address] [id number], [place] [address]- 2549 04 Sep, 2013 [facility] [place] [facility] [address] [id number] [place] [address]- 6565 02 Sep, 2013 [facility] [place] [facility] [address] [id number] [place] [address]- 7688 02 Sep, 2013 [facility] [place] [facility] [address] [id number] [place] [address]- 5398 Jan, 2013 [facility] [place] [facility] [address] [id number] [place] [address]- 7626 Jan, [facility] [place] [facility] [address] [id number] [place] [address]- 1820 Jan, [facility] [place] [facility] [address] [id number] [place] [address]- 5846 Jan, [facility] [place] [facility] [address] [id number] [place] [address]- 7338 Nov, [facility] [place] [facility] [address] [id number] [place] [address]- 8856 Nov, [facility] [place] [facility] [address] [id number] [place] [address]- 2063 October, [facility] [place] [facility] [address] [id number] [place] [address]- 3448 October, [facility] [place] [facility] [address] [id number] [place] [address]- 5257 October, [facility] [place] [facility] [address] [id number] [place] [address]- 2781 October, [facility] [place] [facility] [address] [id number] [place] [address]- 6162 October, [facility] [place] [facility] [address] [id number] [place] [address]- 7070 October, [facility] [place] [facility] [address] [id number] [place] [address]- 3587 October, [facility] [place] [facility] [address] [id number] [place] [address]- 4306 October, [facility] [place] [facility] [address] [id number] [place] 4360 Sep, [facility] [place] [facility] [address] [id number] [place] 1907 Sep, [facility] [place] [facility] [address] [id number] [place] [address]- 0219 Sep, [facility] [place] [facility] [address] [id number] [place] [address]- 4426 Sep, [facility] [place] [facility] [address] [id number] [place] [address]- 6194 Jul, [facility] [place] [facility] [address] [facility] [id number] [place] [address]- 5838 Jul, [facility] [place] [facility] [address] [id number], [place] [address]- 6532 May, [facility] [place] [facility] [address] [id number] [place] [address]- 3328 May, [facility] [place] [facility] [address] [facility] [id number][place]- 6731 Apr, [facility] [place] [facility] [address] [facility] [id number][place]- 5667 Apr, [facility] [place] [facility] [address] [id number], [place] [address]- 2500 Apr, [facility] [place] [facility] [address] [id number], [place] [address]- 4264 Apr, [facility] [place] [facility] [address] [facility] [id number], [place] [address]- 2874 Mar, [facility] [place] [facility] [address] [id number], [place] [address]- 1041 Mar, [facility] [place] [facility] [address] [id number], [place] [address]- 7500 Mar, [facility] [place] [facility] [address] [id number], [place] [address]- 5096 Mar, [facility] [place] [facility] [address] [facility] [id number], [place] [address]- 2105 Feb, [facility] [place] [facility] [address] [facility] [id number], [place] [address]- 7182 Jan, [facility] [place] [facility] [address] [id number] [place] [address]- 2441 Jan, [facility] [address] [id number] [place] [address]- 0049 Jan, [facility] [address] [id number] [place] [address] 2546 Dec, [facility] [address] [id number] [place] [address]- 0072 October, [facility] [address] [id number] [place] [address]- 2464 October, [facility] [address] [id number] [place] [address]- 4066 October, [facility] [address] [id number] [place] [address]- 5046 October, [facility] [address] [id number] [place] [address]- 3452 October, [facility] [address] [id number] [place] [address]- 9551 October, [facility] [address] [id number] [place] [address]- 8997 Sep, [facility] [address] [id number] [place] [address]- 1738 Sep, [facility] [address] [id number] [place] [address]- 8457 Jul, [facility] [address] [id number] [place] [address]- 9516 Jun, [facility] [address] [id number] [place] [address]- 6067 Jun, [facility] [address] [id number] [place] [address]- 2546 Jun, [facility] [address] [id number] [place] [address]- 1482 May, [facility] [place] [facility] [address] [id number] [place] [address]- 5975 May, [facility] [place] [facility] [address] [id number] [place] [address]- 5553 May, [facility] [place] [facility] [address] [id number] [place] 0561 May, [facility] [place] [facility] [address] [id number] [place] [address]- 6567 May, [facility] [place] [facility] [address] [id number] [place] [address]- 3572 May, [facility] [place] [facility] [address] [id number] [place] [address]- 2858 Mar, [facility] [place] [facility] [address] [id number] [place] [address]- 4287 Mar, [facility] [place] [facility] [address] [id number] [place] [address]- 1376 Mar, [facility] [place] [facility] [address] [id number] [place] [address]- 3020 Mar, [facility] [place] [facility] [address] [facility] [id number], [place] [address]- 4642 Feb, [facility] [place] [facility] [address] [id number], [place] [address]- 0422 Dec, [facility] [place] [facility] [address] [id number], [place] [address]- 0315 Dec, [facility] [place] [address] [id number] Dec, [facility] [address] [id number], [place] [address] Nov, [facility] [address] [id number], [place] [address] Nov, [facility] [address] [id number], [place] [address] Nov, [facility] [address] [id number], [place] [address] Nov, [facility] [id number], [place] [address] Aug, [facility] [id number] [address] Jun, [facility] [id number], [place] [address] May, [facility] [id number] [place] [id number] Apr, [facility] [id number], [place] [address] Mar, [facility] [id number], [place] [address] May, IMMUNIZATIONS No Known Immunizations SOCIAL HISTORY Never Assessed REASON FOR VISIT increased pain PLAN OF CARE Activity Details Follow Up prn Reason: VITAL SIGNS MEDICATIONS Medication Instructions Dosage Frequency Start Date End Date Duration Status Exelon 1.5 MG Orally Twice a day 1 capsule with food 12h October, 30 day(s) Unknown Latuda 20 MG TAKE 1 TABLET BY MOUTH EVERY DAY 30 Unknown Metformin HCl 1000 MG TAKE 1 TABLET BY MOUTH TWICE DAILY 30 Unknown Cough Drops 5.8 MG Mouth/Throat every 2-4 hrs 1 lozenge as needed Unknown Pioglitazone HCl 45 MG TAKE 1 TABLET BY MOUTH EVERY DAY 30 Unknown Tylenol Extra Strength 500 mg Orally every 6 hrs 1-2 tablets as needed 6h Sep, Unknown Vitamin D3 2000 UNIT Orally Once a day 1 capsule 24h Unknown Melatonin 3 MG Orally Once a day 1 tablet at bedtime as needed with food 24h Unknown Folic Acid 1 MG Orally Once a day 1 tablet 24h Unknown Actos 45 MG Orally Once a day 1 tablet 24h 07 Apr, 2017 Unknown Lactobacillus Orally Once a day 1 tablet 24h Unknown Aspirin Adult Low Dose 81 MG Orally Once a day 1 tablet 24h Unknown Simvastatin 40 MG TAKE 1 TABLET BY MOUTH AT BEDTIME 30 Unknown Calmoseptine 0.44-20.6 % Externally to buttocks as needed Unknown Acetaminophen 500 mg Orally 4 times a day with the Tramdol 1 capsule October, October, 28 days Active MiraLax 17 gm/dose Orally once daily as needed 17 grams mixed in 8 oz of water or juice Unknown Stress B Complex/Zinc by oral route Once a day 1 tablet 24h Unknown Glucometer Elite Classic glucometer as directed Dec, Unknown Clopidogrel Bisulfate 75 MG TAKE 1 TABLET BY MOUTH ONCE DAILY 30 Unknown Tums 500 mg Orally every 12 hrs 1 tablet as needed 12h Unknown Tramadol HCl 50 mg Orally 4 times a day 1 tablet 6h October, October, 28 days Active Tamsulosin HCl 0.4 MG TAKE 1 CAPSULE BY MOUTH ONCE DAILY 30 Unknown Test strips Test Strips as directed Dec, Unknown Gabapentin 300 MG TAKE 1 CAPSULE BY MOUTH THREE TIMES DAILY 30 Unknown [place]-Tussin 100 MG/5ML Orally every 6 hrs 15 ml as needed 6h Unknown Zoloft 100 MG Orally Once a day 1 tablet 24h Unknown Rivastigmine Tartrate 1.5 MG TAKE 1 CAPSULE BY MOUTH TWICE DAILY 30 Unknown Ferrous Sulfate 325 (65 Fe) MG Orally Once a day 1 tablet 24h Unknown Venlafaxine HCl ER 150 MG TAKE 1 CAPSULE BY MOUTH ONCE DAILY 30 Unknown RESULTS No Results PROCEDURES Procedure Date Ordered Result Body Site Minor complication (15 mins) October 23, 2017 INSTRUCTIONS MEDICATIONS ADMINISTERED No Known Medications MEDICAL [...]
--- OUTSIDE RECORDS SUMMARY | 2018-05-13 07:38 | XMS REPORT ---
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 Name Role Phone PRECIOUS BOTELLO Unavailable PROBLEMS Type Condition ICD9-CM Code [id number] Code Onset Dates Condition Status SNOMED Code Problem Status post closed fracture of hip Z87.81 Active 848879332 Problem Dementia in other diseases classified elsewhere without behavioral disturbance F02.80 Active 281607623 Problem Type 2 diabetes mellitus with other circulatory complication, without long-term current use of insulin E11.59 Active 07788538 Problem Panlobular emphysema J43.1 Active 0763889 Problem Enlarged prostate with lower urinary tract symptoms N40.1 Active 066427932675716 Problem Benign prostatic hyperplasia with lower urinary tract symptoms N40.1 Active 461094787 Problem Polydipsia R63.1 Active 16596538 Problem Depression F32.9 Active 88988983 Problem Type 2 diabetes mellitus with hyperglycemia E11.65 Active 163413616933495 Problem HTN (hypertension) I10 Active 39034741 Problem Bipolar disorder, unspecified F31.9 Active 45723056 Problem Acute left-sided low back pain with left-sided sciatica M54.42 Active 197868066 Problem Low back pain, unspecified back pain laterality, with sciatica presence unspecified M54.5 Active 047315452 Problem 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 Active 16730457 Problem Type 2 diabetes mellitus with diabetic polyneuropathy E11.42 Active 430235651 Problem GERD with esophagitis K21.0 Active 513988853 Problem Status post partial amputation of left foot Z89.432 Active 909937794 Problem Hammer toe, unspecified laterality M20.40 Active 322102341 Problem Tinea pedis, unspecified laterality B35.3 Active 5315265 Problem Other Alzheimers disease G30.8 Active 00422587 Problem Peripheral vascular disease due to secondary diabetes E13.51 Active 3989470 Problem Severe pain R52 Active 47298279 ALLERGIES No Information ENCOUNTERS Encounter Location Date Diagnosis [place] [id number] [place] [address]2- 7114 Jan, [facility] [id number] Jan, Tobacco abuse Z72.0 [place] [address] [place] [id number] [place] [address] 36149- 4287 Dec, [place] [address] [place] [id number] [place] [address] 23251- 7423 Dec, Arthralgia, unspecified joint M25.50 [place] [address] [place] [id number] [place] [address] 73198- 4773 Dec, [place] [address] [place] [id number] [place] [address] 03614- 2928 Dec, [facility] [id number] Dec, Dementia in other diseases classified elsewhere without behavioral disturbance F02.80 ; Peripheral vascular disease due to secondary diabetes E13.51 and 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 [place] [address] [place] [id number] [place] [address] 56757- 1034 Nov, Arthralgia, unspecified joint M25.50 [place] [address] [place] [id number] [place] [address] 64994- 2776 Nov, [place] [address] [place] [id number] [place] [address] 80760- 3362 October, Arthralgia, unspecified joint M25.[address] [id number] October, Arthralgia, unspecified joint M25.50 [facility] [id number] Sep, Weakness R53.1 ; Panlobular emphysema J43.1 ; Bipolar disorder, unspecified F31.9 ; Benign prostatic hyperplasia with lower urinary tract symptoms N40.1 and Frequency of micturition R35.0 [place] [address] [place] [id number] [address] [address]678 Sep, [place] [address] [address] Aug, [facility] [address] [id number] Jul, Dementia in other diseases classified elsewhere without behavioral disturbance F02.80 [place] [address] [place] [id number] [place] [address] [id number] Jul, [place] [address] [place] [address] 78865- 2005 Jun, Bipolar disorder, unspecified F31.[address] [id number] Jun, Pneumonia due to infectious organism, unspecified laterality, unspecified part of lung J18.9 [place] [address], [place] [address]- 8233 Jun, [place] [address] [place] [id number] [id number] Jun, [facility] [address] [id number] Apr, Type 2 diabetes mellitus with other circulatory complication, without long -term current use of insulin E11.59 [place] [address] [address] 1656 Apr, [place] [address] [place] [id number] [id number] Feb, [place] [id number] [address] Feb, [facility] [address] [id number] Feb, Sore throat J02.9 and Polyuria R35.8 [place] [id number] [id number] 15 Aug, 2017 Bronchitis J40 [facility] [address] [id number] Dec, Cervicalgia M54.2 [place] [address] [place] [id number] [place] [address] 71674- 6419 October, Acute left-sided low back pain with left-sided sciatica M54.42 and Cervicalgia M54.2 [place] [address] [place] [id number] [place] [address] 90686- 0729 Sep, Acute left-sided low back pain with left-sided sciatica M54.42 [place] [address] [place] [id number] [place] [address] [id number] Sep, Cervicalgia M54.[address] [facility] [address] [id number] Sep, Cervicalgia M54.2 and Acute left-sided low back pain with left-sided sciatica M54.42 [place] [address] [place] [id number] [place] [address] [id number] Sep, [facility] [address] [id number] Jul, Type 2 diabetes mellitus with hyperglycemia E11.65 ; Bipolar disorder F31.9 ; 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 ; Peripheral vascular disease due to secondary diabetes E13.51 and Status post partial amputation of left foot Z89.432 [place] [address] [place] [address] 00413- 3987 Mar, [place] [address] [place] [address] 11632421- 7962 Mar, [place] [address] [place] [address] [id number]- 5767 Mar, [address] [id number] Mar, Dementia in other diseases classified elsewhere without behavioral disturbance F02.80 ; Polydipsia R63.1 ; HTN (hypertension) I10 ; Hypo- osmolality and hyponatremia E87.1 ; Type 2 diabetes mellitus with other circulatory complication, without long-term current use of insulin E11.59 ; Peripheral vascular disease due to secondary diabetes E13.51 and Bipolar disorder, unspecified F31.9 [facility] [address], [place] [address]- 2518 Feb, [facility] [address], [place] [address]- 6986 Jan, [facility] [address] [place] [id number] [place] [address] 57939- 5193 Jan, [facility] [id number] Jan, Pain of left hip joint M25.552 ; Tobacco abuse Z72.0 and Polydipsia R63.1 [facility] [address] [place] [address] 01996- 4045 Jan, [place] [address] [place] [id number] [place] [address] 54973- 1669 Jan, [facility] [address] [place] [address] 01648- 8699 Dec, [facility] [address] [place] [address] 55981- 9124 Dec, [employer] [id number] Dec, Status post partial amputation of left foot Z89.432 and Peripheral vascular disease due to secondary diabetes E13.51 [facility] [address], [place] [address]- 3644 Dec, [facility] [address], [place] [address]- 2596 Dec, [facility] [address], [place] [address]- 4087 Dec, [facility] [address], [place] [address]- 3611 Nov, [facility] [address], [place] [address]- 9676 Nov, [facility] [place] [address] [place] [id number] Nov, Severe pain R52 and Status post closed fracture of hip Z87.81 [facility] [address], [place] [address]- 3233 Nov, [facility] [address], [place] [address]- 5646 Nov, [facility] [address], [place] [address]- 5096 October, Severe pain R52 [place] [address], [place] [address]- 9805 October, [facility] [address], [place] [address]- 3159 October, Other Alzheimers disease G30.8 and Dementia in other diseases classified elsewhere without behavioral disturbance F02.80 [facility] [address], [place] [address]- 0836 Sep, [place] [address], [place] [address]- 4149 Aug, [facility] [place] [address] [place] [id number] Aug, Status post partial amputation of left foot Z89.432 ; 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 and Peripheral vascular disease due to secondary diabetes E13.51 [facility] [address] [place] [id number], [place] [address]- 6210 Jun, [facility] [address] [place] [id number] [address]- 3333 Jun, [facility] [place] [address] [place] [id number] Jun, 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 and Status post partial amputation of left foot Z89.[address] [facility] [address] [id number] May, Peripheral vascular disease due to secondary diabetes E13.51 ; Status post partial amputation of left foot Z89.432 and 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 [facility] [address] [place] [address] 25652- 4615 Mar, Gangrene associated with type II diabetes mellitus E11.52 [facility] [address], [place] [address]- 7273 Mar, [facility] [place] [address] [place] [id number] Mar, [facility] [address], [place] [address]- 7188 Feb, Nicotine abuse 305.1 [facility] [address] [place] [id number] [place] [address] 70368- 6400 Feb, [facility] [address] [place] [id number] [place] [address] 41278- 3971 Feb, [facility] [address] [place] [id number] [place] [address] 13726- 6843 Jan, [facility] [address] [place] [id number] [place] [address] 77065- 2723 Jan, Diabetes 250.00 ; Peripheral vascular disease 443.9 and Bipolar affective disorder 296.80 [facility] [address], [place] [address]- 9186 Dec, [facility] [address] [place] [address] [id number], [place] [address]- 5067 Dec, [facility] [address] [place] [address] 59449- 5464 Dec, [facility] [address] [place] [id number] [place] [address] 75708- 7907 Dec, [facility] [address], [place] [address]- 3055 Dec, Diabetes mellitus without mention of complication, type II or unspecified type, uncontrolled 250.02 and Vertigo 780.4 [facility] [address] [address]- 7724 Nov, [facility] [address] 0240 October, Follow-up examination V67.9 ; Diabetes mellitus without mention of complication, type II or unspecified type, uncontrolled 250.02 and Upper respiratory infection 465.9 [facility] [address] [place] [address]- 7293 October, [facility] [address] [place] [address]- 5887 Sep, [facility] [address] [place] [address]- 5977 Sep, [facility] [address], [place] [address]- 5631 Aug, [facility] [address] 3143 Aug, [facility] [address] [place] [address]- 2325 Aug, [facility] [address], [place] [address]- 2035 Jul, [facility] [address], [place] [address]- 3326 Jul, [facility] [address], [place] [address]- 5896 Jul, [facility] [address] [place] [id number] [place] [address]- 5956 Jul, [facility] [address], [place] [address]- 0066 May, [facility] [address] [place] [id number] [address]- 3146 May, [facility] [address] [place] [address]- 2893 May, [facility] [place] [facility] [address] [id number] [place] [address]- 6078 May, [facility] [place] [facility] [address] [id number] [place] [address]- 0611 Apr, [facility] [place] [facility] [address] [id number] [place] [address]- 2352 Apr, [facility] [place] [facility] [address] [id number] [place] [address]- 2469 Mar, [facility] [place] [facility] [address] [id number] [place] [address]- 6724 Mar, [facility] [place] [facility] [address] [id number] [place] [address]- 8781 Mar, [facility] [place] [facility] [address] [id number] [place] [address]- 0622 Mar, [facility] [place] [facility] [address] [id number] [place] [address]- 7860 29 Feb, 2013 [facility] [place] [facility] [address] [id number] [place] [address]- 8406 29 Sep, 2013 [facility] [place] [facility] [address] [id number] [place] [address]- 6163 23 Sep, 2013 [facility] [place] [facility] [address] [id number] [place] [address]- 7035 23 Sep, 2013 [facility] [place] [facility] [address] [id number], [place] [address]- 2547 22 Sep, 2013 [facility] [place] [facility] [address] [id number] [place] [address]- 8553 22 Sep, 2013 [facility] [place] [facility] [address] [id number] [place] [address]- 2109 16 Sep, 2013 [facility] [place] [facility] [address] [id number] [place] [address]- 4463 16 Sep, 2013 [facility] [place] [facility] [address] [id number] [place] [address] 2546 16 Sep, 2013 [facility] [place] [facility] [address] [id number] [place] [address] 2546 16 Sep, 2013 [facility] [place] [facility] [address] [id number] [place] [address] 2546 16 Sep, 2013 [facility] [place] [facility] [address] [id number] [place] [address] 2546 16 Sep, 2013 [facility] [place] [facility] [address] [id number] [place] [address] 2546 11 Sep, 2013 [facility] [place] [facility] [address] [id number] [place] [address] 2546 11 Feb, 2013 [facility] [place] [facility] [address] [id number] [place] [address]- 2329 10 Feb, 2013 [facility] [place] [facility] [address] [id number] [place] [address]- 9596 10 Feb, 2013 [facility] [place] [facility] [address] [id number] [place] [address]- 8815 07 Sep, 2013 [facility] [place] [facility] [address] [id number] [place] [address] 2540 04 Sep, 2013 [facility] [place] [facility] [address] [id number] [place] [address] 254 04 Feb, 2013 [facility] [place] [facility] [address] [id number] [place] [address] 2543 02 Sep, 2013 [facility] [place] [facility] [address] [id number] [place] [address] 2543 02 Feb, 2013 [facility] [place] [facility] [address] [id number] [place] [address] 2548 22 Jan, 2013 [facility] [place] [facility] [address] [id number] [place] [address]- 2547 22 Jan, 2013 [facility] [place] [facility] [address] [id number] [place] [address]- 2542 Jan, [facility] [place] [facility] [address] [id number] [place] [address]- 3548 Jan, [facility] [place] [facility] [address] [id number] [place] [address]- 9062 Nov, [facility] [place] [facility] [address] [id number] [place] [address]- 7750 Nov, [facility] [place] [facility] [address] [id number] [place] [address]- 3909 October, [facility] [place] [facility] [address] [id number] [place] [address]- 9230 October, [facility] [place] [facility] [address] [id number] [place] [address]- 4264 October, [facility] [place] [facility] [address] [id number] [place] [address]- 9451 October, [facility] [place] [facility] [address] [id number] [place] [address]- 9483 October, [facility] [place] [facility] [address] [id number] [place] [address]- 4595 October, [facility] [place] [facility] [address] [id number] [place] [address]- 8278 October, [facility] [place] [facility] [address] [id number] [place] [address]- 6559 October, [facility] [place] [facility] [address] [id number], [place] [address]- 6242 Sep, [facility] [place] [facility] [address] [id number] [place] [address]- 2762 Sep, [facility] [place] [facility] [address] [id number] [place] [address]- 2111 Sep, [facility] [place] [facility] [address] [id number] [place] [address]- 9311 Sep, [facility] [place] [facility] [address] [id number] [place] [address]- 7223 Jul, [facility] [address] [id number] [place] [address]- 5734 Jul, [facility] [address] [id number] [place] [address]- 9601 May, [facility] [address] [id number] [place] [address]- 9590 May, [facility] [address] [id number] [place] [address]- 8316 Apr, [facility] [address] [id number] [place] [address]- 6144 Apr, [facility] [address] [facility] [id number] [place] [address]- 7153 Apr, [facility] [address] [id number] [place] [address]- 2313 Apr, [facility] [address] [id number] [place] [address]- 3166 Mar, [facility] [address] [facility] [id number] [place] [address]- 4050 Mar, [facility] [address] [facility] [id number] [place] [address]- 6843 Mar, [facility] [place] [facility] [address] [id number] [place] [address]- 7710 Mar, [facility] [place] [facility] [address] [id number] [place] [address]- 3687 Feb, [facility] [place] [facility] [address] [id number] [place] [address]- 2031 Jan, [facility] [place] [facility] [address] [id number] [place] [address]- 4917 Jan, [facility] [place] [facility] [address] [id number] [place] [address]- 5369 Jan, [facility] [address] [id number] [place] [address]- 7806 Dec, [facility] [address] [id number] [place] [address]- 1256 October, [facility] [address] [id number] [place] [address]- 1136 October, [facility] [address] [id number] [place] [address]- 4186 October, [facility] [address] [id number] [place] [address]- 3556 October, [facility] [address] [id number] [place] [address]- 2226 October, [facility] [address] [id number] [place] [address]- 5756 October, [facility] [address] [id number] [place] [address]- 9356 Sep, [facility] [address] [id number] [place] [address]- 9226 Sep, [facility] [address] [id number] [place] [address]- 9996 Jul, [facility] [address] [id number] [place] [address]- 9056 Jun, [facility] [place] [facility] [address] [id number] [place] [address]- 3816 Jun, [facility] [place] [facility] [address] [id number] [place] [address]- 5576 Jun, [facility] [place] [facility] [address] [id number] [place] [address]- 8726 May, [facility] [place] [facility] [address] [id number] [place] [address]- 8916 May, [facility] [place] [facility] [address] [id number], [place] [address]- 2968 May, [facility] [place] [facility] [address] [id number] [place] [address]- 7095 May, [facility] [place] [facility] [address] [id number] [place] 0266 May, [facility] [place] [facility] [address] [facility] [id number] [place] [address]- 4036 May, [facility] [place] [facility] [address] [id number] [place] [address]- 6663 Mar, [facility] [place] [facility] [address] [id number] [place] [address]- 2698 Mar, [facility] [place] [facility] [address] [facility] [id number] [place] [address]- 8878 Mar, [facility] [place] [facility] [address] [place] [address]- 0694 Mar, [facility] [place] [facility] [address] [facility] [id number] [place] [address]- 3354 Feb, [facility] [place] [facility] [id number] [place] [address]- 7965 Dec, [facility] [place] [facility] [id number] [address]- 4977 Dec, [facility] [place] [facility] [address] [facility] [id number] [place] [address]- 8978 Dec, [facility] [place] [facility] [address] [facility] [id number], [place] [address]- 0443 Nov, [facility] [place] [facility] [address] [id number] [place] [address] Nov, [facility] [place] [facility] [address] [facility] [id number] [place] [address] Nov, [facility] [place] [facility] [address] [id number] [place] [address] Nov, [facility] [place] [facility] [address] [facility] [id number], [place] [address] Aug, [facility] [address] [facility] [id number], [place] [address] Jun, [facility] [address] [facility] [id number], [place] [address] May, [facility] [address] [facility] [id number], [place] [address] Apr, [facility] [address] [facility] [id number], [place] [address] Mar, [facility] [address] [facility] [id number], [place] [address] May, IMMUNIZATIONS No Known Immunizations SOCIAL HISTORY Never Assessed REASON FOR VISIT not feeling well PLAN OF CARE Activity Details Follow Up prn Reason: VITAL SIGNS Height 76 in 2017-09-25 Temperature 97.4 degrees Fahrenheit 2017-09-25 Heart Rate 78 bpm 2017-09-25 Respiratory Rate 20 2017-09-25 Blood pressure systolic 143 mmHg 2017-09-25 Blood pressure diastolic 93 mmHg 2017-09-25 MEDICATIONS Medication Instructions Dosage Frequency Start Date End Date Duration Status Gabapentin 300 MG Orally 3 times a day 1 capsule 8h Active Ibuprofen 800 MG Orally Three times a day 1 tablet with food or milk 8h Active Simvastatin 40 MG TAKE 1 TABLET BY MOUTH AT BEDTIME 30 Active Calmoseptine 0.44-20.6 % Externally to buttocks as needed Active Melatonin 3 MG Orally Once a day 1 tablet at bedtime as needed with food 24h Not-Taking Folic Acid 1 MG Orally Once a day 1 tablet 24h Active Lactobacillus Orally Once a day 1 tablet 24h Active Tamsulosin HCl 0.4 MG Orally Once a day 1 capsule 24h Sep, Nov, 30 day(s) Active Stress B Complex/Zinc by oral route Once a day 1 tablet 24h Active Ferrous Sulfate 325 (65 Fe) MG Orally Once a day 1 tablet 24h Active Aspirin Adult Low Dose 81 MG Orally Once a day 1 tablet 24h Active Clopidogrel Bisulfate 75 MG TAKE 1 TABLET BY MOUTH ONCE DAILY 30 Active Tums 500 mg Orally every 12 hrs 1 tablet as needed 12h Active Tylenol Extra Strength 500 mg Orally every 6 hrs 1-2 tablets as needed 6h Sep, Active Vitamin D3 2000 UNIT Orally Once a day 1 capsule 24h Active Exelon 1.5 MG Orally Twice a day 1 capsule with food 12h October, 30 day(s) Active Glucometer Elite Classic glucometer as directed Dec, Not -Taking Carlota-Tussin 100 MG/5ML Orally every 6 hrs 15 ml as needed 6h Active Latuda 20 MG TAKE 1 TABLET BY MOUTH EVERY DAY 30 Active Actos 45 MG Orally Once a day 1 tablet 24h Apr, Active Metformin HCl 1000 MG TAKE 1 TABLET BY MOUTH TWICE DAILY 30 Active Zoloft 100 MG Orally Once a day 1 tablet 24h Not-Taking Rivastigmine Tartrate 1.5 MG TAKE 1 CAPSULE BY MOUTH TWICE DAILY 30 Active MiraLax 17 gm/dose Orally once daily as needed 17 grams mixed in 8 oz of water or juice Active Test strips Test Strips as directed Dec, Not-Taking Cough Drops 5.8 MG Mouth/Throat every 2-4 hrs 1 lozenge as needed Active Venlafaxine HCl ER 150 MG TAKE 1 CAPSULE BY MOUTH ONCE DAILY Active Tylenol 325 MG Orally every 4 hours 2 tablets as needed 4h Not- Taking RESULTS No Results PROCEDURES Procedure Date Ordered Result Body Site Significant Complication (25 mins) September 25, 2017 INSTRUCTIONS MEDICATIONS ADMINISTERED No Known Medications [...]
--- OUTSIDE RECORDS SUMMARY | 2018-05-13 07:38 | XMS REPORT ---
Author Author PRECIOUS BOTELLO 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 Name Role Phone PRECIOUS BOTELLO Unavailable PROBLEMS Type Condition ICD9-CM Code KYC77-OY Code Onset Dates Condition Status SNOMED Code Problem Status post closed fracture of hip Z87.81 Active 964614835 Problem Dementia in other diseases classified elsewhere without behavioral disturbance F02.80 Active 663393996 Problem Type 2 diabetes mellitus with other circulatory complication, without long-term current use of insulin E11.59 Active 49658269 Problem Panlobular emphysema J43.1 Active 3229842 Problem Enlarged prostate with lower urinary tract symptoms N40.1 Active 800299527098659 Problem Benign prostatic hyperplasia with lower urinary tract symptoms N40.1 Active 023180220 Problem Polydipsia R63.1 Active 11965153 Problem Depression F32.9 Active 97854501 Problem Type 2 diabetes mellitus with hyperglycemia E11.65 Active 907046708251423 Problem HTN (hypertension) I10 Active 12910561 Problem Bipolar disorder, unspecified F31.9 Active 76196452 Problem Acute left-sided low back pain with left-sided sciatica M54.42 Active 192183178 Problem Low back pain, unspecified back pain laterality, with sciatica presence unspecified M54.5 Active 262857345 Problem 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 Active 96446082 Problem Type 2 diabetes mellitus with diabetic polyneuropathy E11.42 Active 667134228 Problem GERD with esophagitis K21.0 Active 761795707 Problem Status post partial amputation of left foot Z89.432 Active 484375117 Problem Hammer toe, unspecified laterality M20.40 Active 053751202 Problem Tinea pedis, unspecified laterality B35.3 Active 9942327 Problem Other Alzheimers disease G30.8 Active 51889211 Problem Peripheral vascular disease due to secondary diabetes E13.51 Active 5801109 Problem Severe pain R52 Active 01430312 ALLERGIES No Information ENCOUNTERS Encounter Location Date Diagnosis [place] [address] [address] Dec, Arthralgia, unspecified joint M25.50 [facility] [address] [address] Dec, [place] [address] [place] [id number] [place] [address] Dec, [facility] [id number] Dec, Dementia in other diseases classified elsewhere without behavioral disturbance F02.80 ; Peripheral vascular disease due to secondary diabetes E13.51 and 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 [place] [address] [place] [id number] [place] [address] Nov, Arthralgia, unspecified joint M25.50 [place] [address] [place] [id number] [place] [address]- 8488 Nov, [place] [id number] [place] [address]35- [address]35 October, Arthralgia, unspecified joint M25.[address] [id number] October, Arthralgia, unspecified joint M25.[address] [id number] Sep, Weakness R53.1 ; Panlobular emphysema J43.1 ; Bipolar disorder, unspecified F31.9 ; Benign prostatic hyperplasia with lower urinary tract symptoms N40.1 and Frequency of micturition R35.0 [place] [address] [address] Sep, [place] [address] [address] Aug, [facility] [address] [id number] Jul, Dementia in other diseases classified elsewhere without behavioral disturbance F02.80 [facility] [address] [id number] [id number] Jul, [facility] [address] [place] [id number] [address] Jun, Bipolar disorder, unspecified F31.9 [facility] [place] [address] [place] [id number] Jun, Pneumonia due to infectious organism, unspecified laterality, unspecified part of lung J18.9 [place] [address] [place] [id number] [address] Jun, [place] [address] [place] [id number] [address] Jun, [facility] [place] [address] [place] [id number] Apr, Type 2 diabetes mellitus with other circulatory complication, without long -term current use of insulin E11.59 [place] [address] [place] [id number] [address]46 Apr, [place] [id number] [address] Feb, [place] [id number] [address] Feb, [facility] [place] [address] [place] [address] Feb, Sore throat J02.9 and Polyuria R35.8 [place] [address] [id number] [address] Jan, Bronchitis J40 [facility] [address] [id number] Dec, Cervicalgia M54.2 [place] [address] [place] [id number] October, Acute left-sided low back pain with left-sided sciatica M54.42 and Cervicalgia M54.2 [place] [address] [address] Sep, Acute left-sided low back pain with left-sided sciatica M54.42 [place] [address] [place] [id number] [address] Sep, Cervicalgia M54.[address] [facility] [address] [id number] Sep, Cervicalgia M54.2 and Acute left-sided low back pain with left-sided sciatica M54.42 [place] [id number] [address] Sep, [facility] [address] [id number] Jul, Type 2 diabetes mellitus with hyperglycemia E11.65 ; Bipolar disorder F31.9 ; 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 ; Peripheral vascular disease due to secondary diabetes E13.51 and Status post partial amputation of left foot Z89.432 [place] [address] [address] Mar, [place] [address] [place] [id number] [place] [address] 39398- 1374 Mar, [place] [id number] [place] [address]- [address] Mar, [facility] [id number] Mar, Dementia in other diseases classified elsewhere without behavioral disturbance F02.80 ; Polydipsia R63.1 ; HTN (hypertension) I10 ; Hypo- osmolality and hyponatremia E87.1 ; Type 2 diabetes mellitus with other circulatory complication, without long-term current use of insulin E11.59 ; Peripheral vascular disease due to secondary diabetes E13.51 and Bipolar disorder, unspecified F31.9 [facility] [address] [address] Feb, [place] [id number] [place] [address]159- 0345 Jan, [facility] [address] [facility] [id number] [address] Jan, [facility] [place] [address] [place] [id number] Jan, Pain of left hip joint M25.552 ; Tobacco abuse Z72.0 and Polydipsia R63.1 [facility] [address] [address] Jan, [facility] [address] [facility] [id number] [address] Jan, [facility] [address] [place] [id number] [address] 7765 Dec, [facility] [address] [place] [id number] [address] Dec, [facility] [place] [address] [place] [address] Dec, Status post partial amputation of left foot Z89.432 and Peripheral vascular disease due to secondary diabetes E13.51 [facility] [address] [place] [id number] [address]- [address] Dec, [facility] [address] [place] [id number] [address]- 6[address] Dec, [facility] [address] [place] [id number] [address] 29[address] Dec, [facility] [address] [place] [id number] [address]- 68[address] Nov, [facility] [address] [place] [id number] [address] Nov, [facility] [place] [address] [place] [id number] Nov, Severe pain R52 and Status post closed fracture of hip Z87.81 [facility] [address] [place] [id number] [address]- 8766 Nov, [facility] [address] [address]- 9[address] Nov, [place] [address] [address]- 99[address] October, Severe pain R52 [place] [address] [address]- 77[address] October, [place] [address] [place] [address]- 6405 October, Other Alzheimers disease G30.8 and Dementia in other diseases classified elsewhere without behavioral disturbance F02.80 [address] [place] [address]- 6066 Sep, [place] [address] [place] [address]43- 8540 Aug, [facility] [place] [address] [place] [address] Aug, Status post partial amputation of left foot Z89.432 ; 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 and Peripheral vascular disease due to secondary diabetes E13.51 [address] [place] [address] 44241- 9434 Jun, [place] [address] [place] [address] 16493- 7431 Jun, [facility] [place] [address] [place] [address] Jun, 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 and Status post partial amputation of left foot Z89.432 [facility] [place] [address] [place] [address] May, Peripheral vascular disease due to secondary diabetes E13.51 ; Status post partial amputation of left foot Z89.432 and 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 [place] [address] [address]- 9181 Mar, Gangrene associated with type II diabetes mellitus E11.52 [address] [place] [address]- 3699 Mar, [facility] [place] [address] [place] [address] Mar, [facility] [address] [address] Feb, Nicotine abuse 305.1 [facility] [address] [address]- 8[address] Feb, [facility] [address] [place] [id number] Feb, [facility] [address] [address]- 1367 Jan, [facility] [address] [place] [id number] [place] [address] 67268- 2244 Jan, Diabetes 250.00 ; Peripheral vascular disease 443.9 and Bipolar affective disorder 296.80 [facility] [address] [place] [id number] [address]- 3100 Dec, [facility] [address] [address]- 8412 Dec, [facility] [address] [address]- 9355 Dec, [facility] [address] [address] [address] Dec, [facility] [address] [place] [id number] [address]- 8089 Dec, Diabetes mellitus without mention of complication, type II or unspecified type, uncontrolled 250.02 and Vertigo 780.4 [facility] [address] [address]- 9035 Nov, [facility] [address] [place] [id number] [address] October, Follow-up examination V67.9 ; Diabetes mellitus without mention of complication, type II or unspecified type, uncontrolled 250.02 and Upper respiratory infection 465.9 [facility] [address] [id number] [place] [address]- 9186 October, [facility] [place] [facility] [address] [id number] [place] [address]- 0969 Sep, [facility] [place] [facility] [address] [id number] [place] [address]- 2905 Sep, [facility] [place] [facility] [address] [id number] [place] [address]- 4769 Aug, [facility] [place] [facility] [address] [id number] [place] [address]- 6322 Aug, [facility] [place] [facility] [address] [id number] [place] [address]- 2859 Aug, [facility] [place] [facility] [address] [facility] [id number] [place] [address]- 5012 Jul, [facility] [place] [facility] [address] [id number] [place] [address]- 1596 Jul, [facility] [place] [facility] [address] [facility] [id number] [place] [address]- 1485 Jul, [facility] [place] [facility] [address] [facility] [id number] [place] [address]- 2195 Jul, [facility] [place] [facility] [address] [facility] [id number] [place] [address]- 9239 May, [facility] [place] [facility] [address] [id number] [place] [address]- 8662 May, [facility] [place] [facility] [address] [id number] [place] [address]- 5412 May, [facility] [place] [facility] [address] [id number] [place] [address]- 0789 May, [facility] [place] [facility] [address] [facility] [id number] [place] [address]- 6086 Apr, [facility] [place] [facility] [address] [id number] [address]- 8027 Apr, [facility] [place] [facility] [address] [id number] [place] [address]- 1418 16 Mar, 2013 [facility] [place] [facility] [address] [id number] [place] [address]- 1489 16 Mar, 2013 [facility] [place] [facility] [address] [id number] [place] [address]- 3149 07 Mar, 2013 [facility] [place] [facility] [address] [id number] [place] [address]- 6965 07 Mar, 2013 [facility] [place] [facility] [address] [id number] [place] [address]- 8685 29 Sep, 2013 [facility] [place] [facility] [address] [id number] [place] [address]- 0265 29 Sep, 2013 [facility] [place] [facility] [address] [id number] [place] [address]- 2432 23 Sep, 2013 [facility] [place] [facility] [address] [id number] [place] [address]- 0044 23 Sep, 2013 [facility] [place] [facility] [address] [id number] [place] [address]- 5270 22 Sep, 2013 [facility] [place] [facility] [address] [id number] [place] [address]- 3584 22 Sep, 2013 [facility] [place] [facility] [address] [id number] [place] [address]- 3641 16 Sep, 2013 [facility] [place] [facility] [address] [id number] [address]- 2547 16 Sep, 2013 [facility] [place] [facility] [address] [id number] [place] [address]- 2540 16 Sep, 2013 [facility] [place] [facility] [address] [id number] [place] [address]- 2548 16 Sep, 2013 [facility] [place] [facility] [address] [id number] [place] [address]- 8960 16 Sep, 2013 [facility] [place] [facility] [address] [id number] [place] [address]- 3429 16 Sep, 2013 [facility] [place] [facility] [address] [id number] [place] [address] 2546 11 Feb, 2013 [facility] [place] [facility] [address] [id number] [place] [address] 2546 11 Feb, 2013 [facility] [place] [facility] [address] [id number] [place] [address] 2546 10 Feb, 2013 [facility] [place] [facility] [address] [id number] [place] [address] 2543 10 Feb, 2013 [facility] [place] [facility] [address] [id number] [place] [address]- 8877 07 Feb, 2013 [facility] [place] [facility] [address] [id number] [place] [address]- 7993 04 Feb, 2013 [facility] [place] [facility] [address] [id number] [place] [address]- 7401 04 Feb, 2013 [facility] [place] [facility] [address] [id number] [place] [address]- 3294 02 Feb, 2013 [facility] [place] [facility] [address] [id number] [place] [address]- 2545 02 Feb, 2013 [facility] [place] [facility] [address] [id number] [place] [address]- 2375 Jan, [facility] [place] [facility] [address] [id number] [place] [address]- 254 Jan, [facility] [place] [facility] [address] [id number] [place] [address] 2549 Jan, [facility] [place] [facility] [address] [id number] [place] [address]- 2548 Jan, [facility] [place] [facility] [address] [id number] [place] [address]- 2788 Nov, [facility] [place] [facility] [address] [id number] [place] [address]- 2540 Nov, [facility] [place] [facility] [address] [id number] [place] [address]- 5187 October, [facility] [place] [facility] [address] [id number] [place] [address]- 6009 October, [facility] [place] [facility] [address] [id number] [place] [address]- 5239 October, [facility] [place] [facility] [address] [id number] [place] [address]- 4428 October, [facility] [place] [facility] [address] [id number] [place] [address]- 0204 October, [facility] [place] [facility] [address] [id number] [place] [address]- 0363 October, [facility] [place] [facility] [address] [id number] [place] [address]- 3448 October, [facility] [place] [facility] [address] [id number] [place] [address]- 5975 October, [facility] [place] [facility] [address] [id number] [place] [address]- 7042 Sep, [facility] [place] [facility] [address] [id number] [place] [address]- 2800 Sep, [facility] [place] [facility] [address] [id number] [place] [address]- 1478 Sep, [facility] [place] [facility] [address] [id number] [address]- 7536 Sep, [facility] [place] [facility] [address] [id number] [place] [address]- 7801 Jul, [facility] [place] [facility] [address] [id number] [place] [address]- 6868 Jul, [facility] [place] [facility] [address] [id number] [place] [address]- 9383 May, [facility] [place] [facility] [address] [id number] [place] [address]- 2546 May, [facility] [address] [id number] [place] [address]- 8660 Apr, [facility] [place] [facility] [address] [id number] [place] [address]- 2546 Apr, [facility] [address] [id number] [place] [address]- 4778 Apr, [facility] [place] [facility] [address] [id number] [place] [address]- 254 Apr, [facility] [address] [id number] [place] [address]- 0704 Mar, [facility] [address] [id number] [place] [address]- 9866 Mar, [facility] [address] [id number] [place] [address]- 7794 Mar, [facility] [address] [id number] [place] [address]- 1182 Mar, [facility] [place] [facility] [address] [id number] [place] [address]- 8315 Feb, [facility] [address] [id number] [place] [address]- 9532 Jan, [facility] [place] [facility] [address] [id number] [place] [address]- 6426 Jan, [facility] [place] [facility] [address] [id number] [place] [address]- 2545 Jan, [facility] [place] [facility] [address] [id number] [place] [address]- 2546 Dec, [facility] [place] [facility] [address] [id number] [place] [address]- 2546 October, [facility] [place] [facility] [address] [id number] [place] [address]- 7390 October, [facility] [address] [id number] [place] [address]- 6956 October, [facility] [address] [id number] [place] [address]- 6086 October, [facility] [address] [id number] [place] [address]- 5046 October, [facility] [address] [id number] [place] [address]- 5476 October, [facility] [address] [id number] [place] [address]- 4883 Sep, [facility] [address] [id number] [place] [address]- 0796 Sep, [facility] [address] [id number] [place] [address]- 0182 Jul, [facility] [address] [id number] [place] [address]- 4283 Jun, [facility] [address] [id number] [place] [address]- 3581 Jun, [facility] [address] [id number] [address]- 8242 Jun, [facility] [address] [id number] [place] [address]- 5452 May, [facility] [address] [id number] [place] [address]- 2526 May, [facility] [place] [facility] [address] [id number] [place] [address]- 4222 May, [facility] [place] [facility] [address] [id number] [place] [address]- 6356 May, [facility] [place] [facility] [address] [id number] [place] [address]- 1715 May, [facility] [place] [facility] [address] [id number] [address]- 8822 May, [facility] [place] [facility] [address] [id number] [place] [address]- 1726 Mar, [facility] [place] [facility] [address] [id number] [place] [address]- 4076 Mar, [facility] [place] [facility] [address] [id number] [place] [address]- 4074 Mar, [facility] [place] [facility] [address] [id number] [place] [address]- 9393 Mar, [facility] [place] [facility] [address] [id number] [place] [address]- 8172 Feb, [facility] [place] [facility] [address] [id number] [place] [address]- 2382 Dec, [facility] [place] [facility] [id number] [place] [address]- 0607 Dec, [facility] [place] [facility] [address] [id number] [place] [address]- 9032 Dec, [facility] [place] [facility] [id number] [place] [address]- 7514 Nov, [facility] [place] [facility] [address] [facility] [id number] [place] [address]- 1531 Nov, [facility] [place] [facility] [address] [id number] [place] [address]- 8856 Nov, [facility] [place] [facility] [address] [id number] [place] [address]- 9135 Nov, [facility] [place] [facility] [address] [id number] [place] [address]- 6838 Aug, [facility] [place] [facility] [address] [facility] [id number] [place] [address] Jun, [facility] [place] [facility] [address] [facility] [id number] [place] [address] May, [facility] [place] [facility] [address] [facility] [id number] [place] [address] Apr, [facility] [address] [facility] [id number] [place] [address] Mar, [facility] [address] [facility] [id number] [place] [address] May, IMMUNIZATIONS No Known Immunizations SOCIAL HISTORY Never Assessed REASON FOR VISIT Acting unusual PLAN OF CARE VITAL SIGNS MEDICATIONS Unknown [...]
--- OUTSIDE RECORDS SUMMARY | 2018-05-13 07:39 | XMS REPORT ---
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 Name Role Phone PRECIOUS BOTELLO Unavailable PROBLEMS Type Condition ICD9-CM Code FTQ17-SQ Code Onset Dates Condition Status SNOMED Code Problem Status post closed fracture of hip Z87.81 Active 976660555 Problem Dementia in other diseases classified elsewhere without behavioral disturbance F02.80 Active 707685465 Problem Type 2 diabetes mellitus with other circulatory complication, without long-term current use of insulin E11.59 Active 38333569 Problem Panlobular emphysema J43.1 Active 0233978 Problem Enlarged prostate with lower urinary tract symptoms N40.1 Active [id number] Problem Benign prostatic hyperplasia with lower urinary tract symptoms N40.1 Active 397153405 Problem Polydipsia R63.1 Active 30784185 Problem Depression F32.9 Active 92451916 Problem Type 2 diabetes mellitus with hyperglycemia E11.65 Active 449332128677330 Problem HTN (hypertension) I10 Active 64954876 Problem Bipolar disorder, unspecified F31.9 Active 63895551 Problem Acute left-sided low back pain with left-sided sciatica M54.42 Active 841975285 Problem Low back pain, unspecified back pain laterality, with sciatica presence unspecified M54.5 Active 340171758 Problem 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 Active 65869625 Problem Type 2 diabetes mellitus with diabetic polyneuropathy E11.42 Active 897849145 Problem GERD with esophagitis K21.0 Active 510284404 Problem Status post partial amputation of left foot Z89.432 Active 031913850 Problem Hammer toe, unspecified laterality M20.40 Active 522310387 Problem Tinea pedis, unspecified laterality B35.3 Active 9535858 Problem Other Alzheimers disease G30.8 Active 24066090 Problem Peripheral vascular disease due to secondary diabetes E13.51 Active 5490056 Problem Severe pain R52 Active 70785127 ALLERGIES No Information ENCOUNTERS Encounter Location Date Diagnosis [place] [id number] [address] Dec, [place] [address] [place] [id number] [place] [address] 13283- 6766 Dec, [facility] [id number] Dec, Dementia in other diseases classified elsewhere without behavioral disturbance F02.80 ; Peripheral vascular disease due to secondary diabetes E13.51 and 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 [place] [address] [place] [id number] [place] [address] 27266- 1757 Nov, Arthralgia, unspecified joint M25.50 [place] [address] [place] [id number] [place] [address] 24979- 3698 Nov, [place] [address] [place] [id number] [place] [address] 60462- 2925 October, Arthralgia, unspecified joint M25.[address] [facility] [address] [id number] October, Arthralgia, unspecified joint M25.[address] [facility] [address] [id number] Sep, Weakness R53.1 ; Panlobular emphysema J43.1 ; Bipolar disorder, unspecified F31.9 ; Benign prostatic hyperplasia with lower urinary tract symptoms N40.1 and Frequency of micturition R35.0 [place] [address] [address] Sep, [place] [id number] [place] [address] 17669- 0648 Aug, [facility] [address] [id number] Jul, Dementia in other diseases classified elsewhere without behavioral disturbance F02.80 [facility] [address] [place] [id number] [place] [id number] Jul, [facility] [address] [address] 0[address] Jun, Bipolar disorder, unspecified F31.9 [facility] [place] [address] [place] [id number] Jun, Pneumonia due to infectious organism, unspecified laterality, unspecified part of lung J18.9 [place] [address] [address]598 Jun, [facility] [id number] [place] [address] [id number] Jun, [facility] [address] [id number] Apr, Type 2 diabetes mellitus with other circulatory complication, without long -term current use of insulin E11.59 [place] [id number] [place] [address] 98483- 6426 Apr, [place] [address] [place] [id number] [place] [address] [id number] Feb, [place] [address] [place] [id number] [place] [address] [id number] Feb, [facility] [address] [id number] Feb, Sore throat J02.9 and Polyuria R35.8 [place] [id number] [id number] Jan, Bronchitis J40 [facility] [address] [id number] Dec, Cervicalgia M54.2 [facility] [address] [address] October, Acute left-sided low back pain with left-sided sciatica M54.42 and Cervicalgia M54.2 [place] [address] [address] 5503 Sep, Acute left-sided low back pain with left-sided sciatica M54.42 [place] [id number] [address] Sep, [facility]icalgia M54.2 [facility] [id number] Sep, Cervicalgia M54.2 and Acute left-sided low back pain with left-sided sciatica M54.42 [facility] [id number] [address] Sep, [facility] [id number] Jul, Type 2 diabetes mellitus with hyperglycemia E11.65 ; Bipolar disorder F31.9 ; 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 ; Peripheral vascular disease due to secondary diabetes E13.51 and Status post partial amputation of left foot Z89.432 [place] [address] [place] [id number] [place] [address] 34970- 1531 Mar, [place] [address] [place] [id number] [place] [address] 52266- 3070 Mar, [place] [id number] [place] [address] 76855- 3459 Mar, [address] [id number] Mar, Dementia in other diseases classified elsewhere without behavioral disturbance F02.80 ; Polydipsia R63.1 ; HTN (hypertension) I10 ; Hypo- osmolality and hyponatremia E87.1 ; Type 2 diabetes mellitus with other circulatory complication, without long-term current use of insulin E11.59 ; Peripheral vascular disease due to secondary diabetes E13.51 and Bipolar disorder, unspecified F31.9 [place] [address] [address] 6904 Feb, [place] [address] [place] [id number] [place] [address] [id number]- 1193 Jan, [place] [id number] [place] [address] 03304- 3982 Jan, [address] [id number] Jan, Pain of left hip joint M25.552 ; Tobacco abuse Z72.0 and Polydipsia R63.1 [facility] [address] [address] [id number] [place] [address] 88751- 9559 Jan, [facility] [address] [address] [id number] [place] [address] 55852- 6484 Jan, [facility] [address] [address] [id number] [place] [address] 59549- 9123 Dec, [facility] [address] [place] [id number] [place] [address] 27695- 6126 Dec, [facility] [address] [place] [id number] Dec, Status post partial amputation of left foot Z89.432 and Peripheral vascular disease due to secondary diabetes E13.51 [facility] [address] [place] [id number] [place] [address] 26143- 8638 Dec, [facility] [address] [place] [id number] [place] [address] 10616- 6601 Dec, [facility] [address] [place] [address] [id number] [place] [address] 46989- 1613 Dec, [facility] [id number] [place] [address] 44768- 5647 Nov, [facility] [id number] [place] [address] 23760- 8138 Nov, [facility] [address] [place] [id number] Nov, Severe pain R52 and Status post closed fracture of hip Z87.81 [facility] [address] [place] [id number] [place] [address] 65740- 4042 Nov, [facility] [address] [place] [address] [id number] [place] [address] 77157- 2192 Nov, [facility] [address] [id number] [place] [address] 65042- 0730 October, Severe pain R52 [place] [address] [address]- 6990 October, [place] [id number] [place] [address] 80400- 2910 October, Other Alzheimers disease G30.8 and Dementia in other diseases classified elsewhere without behavioral disturbance F02.80 [id number] [place] [address] 06022- 6154 Sep, [place] [id number] [place] [address] 56311- 7923 Aug, [facility] [address] [id number] Aug, Status post partial amputation of left foot Z89.432 ; 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 and Peripheral vascular disease due to secondary diabetes E13.51 [place] [id number] [place] [address] 23229- 1793 Jun, [address] [address]- 0781 Jun, [facility] [address] [id number] Jun, 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 and Status post partial amputation of left foot Z89.[address] [id number] May, Peripheral vascular disease due to secondary diabetes E13.51 ; Status post partial amputation of left foot Z89.432 and 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 [place] [address] [address]- 6358 Mar, Gangrene associated with type II diabetes mellitus E11.52 [address] [address]- 4286 Mar, [facility] [address] [place] [id number] Mar, [address] [address]- 2578 Feb, Nicotine abuse 305.1 [facility] [address] [address] Feb, [facility] [address] [address]- 3097 Feb, [facility] [address] [address]- 5268 Jan, [facility] [address] [address]- 8386 Jan, Diabetes 250.00 ; Peripheral vascular disease 443.9 and Bipolar affective disorder 296.80 [facility] [address] [address]- 3264 Dec, [facility] [address] [address]- 3000 Dec, [facility] [address] [address]- 1018 Dec, [facility] [address] [address]- 9807 Dec, [facility] [address] [place] [id number] [address]- 2686 Dec, Diabetes mellitus without mention of complication, type II or unspecified type, uncontrolled 250.02 and Vertigo 780.4 [facility] [address] [place] [id number] [address]- 8589 Nov, [facility] [address] [id number] [address]- 2983 October, Follow-up examination V67.9 ; Diabetes mellitus without mention of complication, type II or unspecified type, uncontrolled 250.02 and Upper respiratory infection 465.9 [facility] [address] [id number] [address]- 0692 October, [facility] [address] [place] [address] [id number] [place] [address]- 5257 14 Sep, 2014 [facility] [place] [facility] [address] [id number] [place] [address]- 6763 13 Sep, 2014 [facility] [place] [facility] [address] [id number] [place] [address]- 7366 17 Aug, 2014 [facility] [place] [facility] [address] [id number] [place] [address]- 9756 Aug, 2014 [facility] [place] [facility] [address] [id number] [place] [address]- 0416 Aug, 2014 [facility] [place] [facility] [address] [id number] [place] [address]- 5734 Jul, 2014 [facility] [place] [facility] [address] [facility] [id number] [place] [address]- 9143 Jul, 2014 [facility] [place] [facility] [address] [id number] [place] [address]- 7715 Jul, 2014 [facility] [place] [facility] [address] [id number] [place] [address]- 8583 Jul, [facility] [place] [facility] [address] [id number] [place] [address]- 3950 May, [facility] [place] [facility] [address] [facility] [id number] [place] [address]36 May, [facility] [place] [facility] [address] [id number] [place] [address]- 3287 May, [facility] [place] [facility] [address] [id number] [place] [address]- 3727 May, [facility] [place] [facility] [address] [id number] [place] [address]- 6705 Apr, [facility] [place] [facility] [address] [facility] [id number] [place] [address]- 8316 Apr, [facility] [place] [facility] [address] [facility] [id number] [place] [address]- 8068 Mar, [facility] [place] [facility] [address] [id number] [place] [address]- 4586 16 Mar, 2013 [facility] [place] [facility] [address] [id number] [place] [address]- 5775 07 Mar, 2013 [facility] [place] [facility] [address] [id number] [place] [address]- 3714 07 Mar, 2013 [facility] [place] [facility] [address] [id number] [place] [address]- 1463 29 Sep, 2013 [facility] [place] [facility] [address] [id number] [place] [address]- 4868 29 Sep, 2013 [facility] [place] [facility] [address] [id number] [place] [address]- 8156 23 Sep, 2013 [facility] [place] [facility] [address] [id number] [place] [address]- 5346 23 Feb, 2013 [facility] [place] [facility] [address] [id number] [place] [address]- 0472 22 Sep, 2013 [facility] [place] [facility] [address] [id number] [place] [address]- 3619 22 Sep, 2013 [facility] [place] [facility] [address] [id number] [place] [address]- 7309 16 Sep, 2013 [facility] [place] [facility] [address] [id number] [address]- 6487 16 Sep, 2013 [facility] [place] [facility] [address] [id number] [address]- 2878 16 Sep, 2013 [facility] [place] [facility] [address] [id number] [place] [address]- 2547 16 Sep, 2013 [facility] [place] [facility] [address] [id number] [place] [address]- 9465 16 Sep, 2013 [facility] [place] [facility] [address] [id number] [place] [address]- 1142 16 Sep, 2013 [facility] [place] [facility] [address] [id number] [place] [address]- 8503 11 Feb, 2013 [facility] [place] [facility] [address] [id number] [place] [address]- 8615 11 Feb, 2013 [facility] [place] [facility] [address] [id number] [place] [address]- 6999 10 Feb, 2013 [facility] [place] [facility] [address] [id number] [place] [address]- 2064 10 Feb, 2013 [facility] [place] [facility] [address] [id number] [place] [address]- 9341 07 Feb, 2013 [facility] [place] [facility] [address] [id number] [place] [address]- 3418 04 Feb, 2013 [facility] [place] [facility] [address] [id number] [place] [address]- 6616 04 Feb, 2013 [facility] [place] [facility] [address] [id number] [place] [address]- 6971 02 Feb, 2013 [facility] [place] [facility] [address] [id number] [place] [address]- 4993 Feb, 2013 [facility] [place] [facility] [address] [id number] [place] [address]- 9404 Jan, [facility] [place] [facility] [address] [id number] [place] [address]- 2348 Jan, [facility] [place] [facility] [address] [id number] [place] [address]- 4335 Jan, [facility] [place] [facility] [address] [id number] [place] [address]- 3176 Jan, [facility] [place] [facility] [address] [id number] [place] [address]- 6055 Nov, [facility] [place] [facility] [address] [id number] [place] [address]- 6199 Nov, [facility] [place] [facility] [address] [id number] [place] [address]- 5725 October, [facility] [place] [facility] [address] [id number] [place] [address]- 0335 October, [facility] [place] [facility] [address] [id number] [place] [address]- 0082 October, [facility] [place] [facility] [address] [id number] [place] [address]- 9542 October, [facility] [place] [facility] [address] [id number] [place] [address]- 3925 October, [facility] [place] [facility] [address] [id number] [place] [address]- 2116 October, [facility] [place] [facility] [address] [id number] [place] [address]- 2738 October, [facility] [place] [facility] [address] [id number] [place] [address]- 4000 October, [facility] [place] [facility] [address] [id number] [place] [address]- 5578 Sep, [facility] [place] [facility] [address] [id number] [place] [address]- 0675 Sep, [facility] [place] [facility] [address] [id number] [place] [address]- 1385 Sep, [facility] [place] [facility] [address] [id number] [place] [address]- 4246 Sep, [facility] [place] [facility] [address] [id number] [place] [address]- 7661 Jul, [facility] [place] [facility] [address] [id number] [place] [address]- 9725 Jul, [facility] [place] [facility] [address] [id number] [place] 1023 May, [facility] [place] [facility] [address] [id number] [place] [address]- 6771 May, [facility] [place] [facility] [address] [id number] [place] [address]- 2546 Apr, [facility] [place] [facility] [address] [id number] [place] [address]- 8761 Apr, [facility] [place] [facility] [address] [id number] [place] [address]- 0686 Apr, [facility] [place] [facility] [address] [id number] [place] [address] 2549 Apr, [facility] [place] [facility] [address] [id number] [place] [address]- 2837 Mar, [facility] [place] [facility] [address] [id number] [place] [address]- 0200 Mar, [facility] [place] [facility] [address] [id number] [place] [address] 2544 Mar, [facility] [place] [facility] [address] [id number] [place] [address]- 4392 Mar, [facility] [place] [facility] [address] [id number] [place] [address]- 8257 Feb, [facility] [place] [facility] [address] [id number] [place] [address]- 9888 Jan, [facility] [place] [facility] [address] [id number] [place] [address]- 7915 Jan, [facility] [place] [facility] [address] [id number] [place] [address]- 5881 Jan, [facility] [place] [facility] [address] [id number] [place] [address] 2545 Dec, [facility] [place] [facility] [address] [id number] [place] [address]- 7760 October, [facility] [place] [facility] [address] [id number] [place] [address]- 8656 October, [facility] [place] [facility] [address] [id number] [place] [address] 2546 October, [facility] [place] [facility] [address] [id number] [place] [address]- 2546 16 Oct, 2012 [facility] [address] [id number] [place] [address]- 4151 October, [facility] [address] [id number] [place] [address]- 2546 October, [facility] [address] [id number] [place] [address]- 1711 Sep, [facility] [address] [id number] [place] [address]- 7852 Sep, [facility] [address] [id number] [place] [address]- 2125 Jul, [facility] [address] [id number] [place] [address]- 8078 Jun, [facility] [address] [id number] [place] [address]- 1695 Jun, [facility] [address] [id number] [place] [address]- 6640 Jun, [facility] [address] [id number] [place] [address]- 3695 May, [facility] [address] [id number] [place] [address]- 6297 May, [facility] [address] [id number] [place] [address]- 7418 May, [facility] [address] [id number] [place] 9235 May, [facility] [address] [id number] [place] [address]- 3037 May, [facility] [address] [id number] [place] [address]- 0346 May, [facility] [address] [id number] [place] [address]- 3646 Mar, [facility] [place] [facility] [address] [id number] [place] [address]- 1893 Mar, [facility] [place] [facility] [address] [id number] [place] [address]- 1127 Mar, [facility] [place] [facility] [address] [id number] [place] [address]- 6811 Mar, [facility] [place] [facility] [address] [id number] [place] [address]- 9092 Feb, [facility] [place] [facility] [address] [id number] [place] [address]- 2990 Dec, [facility] [place] [facility] [address] [id number] [place] [address] Dec, [facility] [place] [facility] [address] [id number] [place] [address] Dec, [facility] [place] [facility] [address] [id number] [place] [address] Nov, [facility] [place] [facility] [address] [id number] [place] [address] Nov, [facility] [place] [facility] [address] [id number] [place] [address] Nov, [facility] [place] [facility] [address] [id number] [place] [address] Nov, [facility] [place] [facility] [address] [id number] [place] [address] Aug, [facility] [place] [facility] [address] [id number] [place] [address] Jun, [facility] [place] [facility] [address] [id number] [place] [address] May, [facility] [place] [facility] [address] [id number] [place] [address] Apr, [facility] [place] [facility] [address] [id number] [place] [address] Mar, [facility] [address] [facility] [id number] [place] [address] May, IMMUNIZATIONS No Known Immunizations SOCIAL HISTORY Never Assessed [facility] C[facility] VITAL SIGNS MEDICATIONS Unknown [...]
--- OUTSIDE RECORDS SUMMARY | 2018-05-13 07:39 | XMS REPORT ---
Author Author EVONNE LAZO Organization [facility] Address [address] [place] [address] Care Team Providers Care Paper Deliverer Name Role Phone EVONNE LAZO Unavailable PROBLEMS Type Condition ICD9-CM Code TXS37-AO Code Onset Dates Condition Status SNOMED Code Problem Status post closed fracture of hip Z87.81 Active 481178915 Problem Dementia in other diseases classified elsewhere without behavioral disturbance F02.80 Active 961149688 Problem Type 2 diabetes mellitus with other circulatory complication, without long-term current use of insulin E11.59 Active 27159872 Problem Panlobular emphysema J43.1 Active 5941569 Problem Enlarged prostate with lower urinary tract symptoms N40.1 Active 870243871920971 Problem Benign prostatic hyperplasia with lower urinary tract symptoms N40.1 Active 156250576 Problem Polydipsia R63.1 Active 64461178 Problem Depression F32.9 Active 03711362 Problem Type 2 diabetes mellitus with hyperglycemia E11.65 Active 532233810735215 Problem HTN (hypertension) I10 Active 41312164 Problem Bipolar disorder, unspecified F31.9 Active 64539558 Problem Acute left-sided low back pain with left-sided sciatica M54.42 Active 629400786 Problem Low back pain, unspecified back pain laterality, with sciatica presence unspecified M54.5 Active 446153383 Problem 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 Active 63116099 Problem Type 2 diabetes mellitus with diabetic polyneuropathy E11.42 Active 310501423 Problem GERD with esophagitis K21.0 Active 801732326 Problem Status post partial amputation of left foot Z89.432 Active 598387346 Problem Hammer toe, unspecified laterality M20.40 Active 233879687 Problem Tinea pedis, unspecified laterality B35.3 Active 0468910 Problem Other Alzheimers disease G30.8 Active 60536583 Problem Peripheral vascular disease due to secondary diabetes E13.51 Active 1432594 Problem Severe pain R52 Active 06240587 ALLERGIES No Information ENCOUNTERS Encounter Location Date Diagnosis [facility] [address] [address] Nov, [place] [id number] [place] [address]185[address] October, Arthralgia, unspecified joint M25.50 [facility] [address] [place] [id number] October, Arthralgia, unspecified joint M25.50 [facility] [address] [place] [id number] Sep, Weakness R53.1 ; Panlobular emphysema J43.1 ; Bipolar disorder, unspecified F31.9 ; Benign prostatic hyperplasia with lower urinary tract symptoms N40.1 and Frequency of micturition R35.0 [place] [id number] [place] [address] 56511- 0276 Sep, [place] [id number] [place] [address] 28313- 3840 Aug, [facility] [address] [id number] Jul, Dementia in other diseases classified elsewhere without behavioral disturbance F02.80 [place] [id number] [place] [id number] Jul, [place] [id number] [place] [address] 45065- 1203 Jun, Bipolar disorder, unspecified F31.[address] [facility] [address] [id number] Jun, Pneumonia due to infectious organism, unspecified laterality, unspecified part of lung J18.9 [place] [id number] [place] [address] 30754- 3056 Jun, [place] [id number] [place] [address] [id number] Jun, [facility] [address] [place] [id number] Apr, Type 2 diabetes mellitus with other circulatory complication, without long -term current use of insulin E11.59 [place] [address] [address]46 Apr, [place] [address] [id number] Feb, [place] [id number] [place] [id number] Feb, [facility] [id number] Feb, Sore throat J02.9 and Polyuria R35.8 [place] [id number] [place] [id number] Jan, [facility] [id number] Dec, Cervicalgia M54.2 [place] [address] [place] [address] 36403- 4936 October, Acute left-sided low back pain with left-sided sciatica M54.42 and Cervicalgia M54.2 [place] [address] [place] [address] 91972- 2406 Sep, Acute left-sided low back pain with left-sided sciatica M54.42 [place] [id number] [address] Sep, Cervicalgia M54.[address] [id number] Sep, Cervicalgia M54.2 and Acute left-sided low back pain with left-sided sciatica M54.42 [place] [address] [id number] [place] [address] [id number] Sep, [facility] [id number] Jul, Type 2 diabetes mellitus with hyperglycemia E11.65 ; Bipolar disorder F31.9 ; 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 ; Peripheral vascular disease due to secondary diabetes E13.51 and Status post partial amputation of left foot Z89.432 [facility] [address], [place] [address] Mar, [facility] [address], [place] [address] 6[address] Mar, [facility] [address] [place] [address] 64944- 1830 Mar, [facility] [id number] Mar, Dementia in other diseases classified elsewhere without behavioral disturbance F02.80 ; Polydipsia R63.1 ; HTN (hypertension) I10 ; Hypo- osmolality and hyponatremia E87.1 ; Type 2 diabetes mellitus with other circulatory complication, without long-term current use of insulin E11.59 ; Peripheral vascular disease due to secondary diabetes E13.51 and Bipolar disorder, unspecified F31.9 [place] [address], [place] [address] Feb, [place] [address] [place] [address] 55473- 9905 Jan, [place] [address] [place] [address] 32278- 0592 Jan, [facility] [id number] Jan, Pain of left hip joint M25.552 ; Tobacco abuse Z72.0 and Polydipsia R63.1 [facility] [address], [place] [address] Jan, [facility] [address] [place] [address] 76106- 5321 Jan, [facility] [address] [place] [address] 70345- 9442 Dec, [place] [address], [place] [address] Dec, [facility] [id number] Dec, Status post partial amputation of left foot Z89.432 and Peripheral vascular disease due to secondary diabetes E13.51 [facility] [address], [place] [address] 37[address] Dec, [facility] [address], [place] [address] 2908 Dec, [facility] [address], [place] [address] 9[address] Dec, [facility] [address], [place] [address] Nov, [facility] [address], [place] [address] Nov, [facility] [id number] Nov, Severe pain R52 and Status post closed fracture of hip Z87.81 [facility] [address], [place] [address] 3[address] Nov, [facility] [address], [place] [address] 1204 Nov, [facility] [address], [place] [address] 0[address] October, Severe pain R52 [facility] [address], [place] [address] October, [facility] [id number] [address] October, Other Alzheimers disease G30.8 and Dementia in other diseases classified elsewhere without behavioral disturbance F02.80 [facility] [address], [place] [address] 7[address] Sep, [facility] [address], [place] [address] Aug, [address] [id number] Aug, Status post partial amputation of left foot Z89.432 ; 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 and Peripheral vascular disease due to secondary diabetes E13.51 [facility] [address], [place] [address] Jun, [facility] [address] [place] [address] 39844- 2406 Jun, [facility] [id number] Jun, 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 and Status post partial amputation of left foot Z89.[address] [id number] May, Peripheral vascular disease due to secondary diabetes E13.51 ; Status post partial amputation of left foot Z89.432 and 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 [place] [address] [place] [address] 27552- 4223 Mar, Gangrene associated with type II diabetes mellitus E11.52 [facility] [id number] [place] [address] 76024- 6980 Mar, [address] [id number] Mar, [facility] [address], [place] [address]- 6[address] Feb, Nicotine abuse 305.1 [facility] [address] [place] [address] 15753- 5807 Feb, [facility] [id number] [place] [address] 76568- 0635 Feb, [facility] [id number] [place] [address] 76960- 3011 Jan, [facility] [address] [place] [address] [id number]- 6740 Jan, Diabetes 250.00 ; Peripheral vascular disease 443.9 and Bipolar affective disorder 296.80 [facility] [address], [place] [address]- 8[address] Dec, [facility] [address] [address] 7377 Dec, [facility] [address], [place] [address]- 7377 Dec, [facility] [id number] [place] [address] 54951- 6986 Dec, [facility] [address], [place] [address]- 9[address] Dec, Diabetes mellitus without mention of complication, type II or unspecified type, uncontrolled 250.02 and Vertigo 780.4 [facility] [address], [place] [address]- 5554 Nov, [facility] [id number] [place] [address] 83040- 8374 October, Follow-up examination V67.9 ; Diabetes mellitus without mention of complication, type II or unspecified type, uncontrolled 250.02 and Upper respiratory infection 465.9 [facility] [address], [place] [address]- 6[address] October, [facility] [address], [place] [address]- 3138 Sep, [facility] [address], [place] [address]- 9061 Sep, [facility] [address], [place] [address]- 7459 Aug, [facility] [address] [address]- 0250 Aug, [facility] [address], [place] [address]- 97[address] Aug, [facility] [address], [place] [address]- 4236 Jul, 2014 [facility] [place] [facility] [address] [id number] [place] [address]- 7452 Jul, 2014 [facility] [place] [facility] [address] [id number] [place] [address]- 9111 Jul, 2014 [facility] [place] [facility] [address] [facility] [id number] [place] [address]- 2148 Jul, [facility] [place] [facility] [address] [id number] [place] [address]- 8523 May, [facility] [place] [facility] [address] [id number] [place] [address]- 6576 May, [facility] [place] [facility] [address] [facility] [id number] [place] [address]- 9446 May, [facility] [place] [facility] [address] [facility] [id number] [place] [address]- 3874 May, [facility] [place] [facility] [address] [facility] [id number] [place] [address]- 2971 Apr, [facility] [place] [facility] [address] [facility] [id number] [place] [address]- 5222 Apr, [facility] [place] [facility] [address] [facility] [id number] [place] [address]- 3270 Mar, [facility] [place] [facility] [address] [facility] [id number] [address]- 5026 Mar, [facility] [place] [facility] [address] [facility] [id number] [address]- 9277 Mar, [facility] [place] [facility] [address] [facility] [id number], [place] [address]- 9241 Mar, [facility] [place] [facility] [address] [facility] [id number], [place] [address]- 7759 Feb, [facility] [place] [facility] [address] [facility] [id number] [place] [address]- 7756 29 Feb, 2014 [facility] [place] [facility] [address] [id number] [place] [address]- 3593 23 Sep, 2013 [facility] [place] [facility] [address] [id number] [place] [address] 2546 23 Sep, 2013 [facility] [place] [facility] [address] [id number] [place] [address] 2546 22 Sep, 2013 [facility] [place] [facility] [address] [id number] [place] [address] 2546 22 Sep, 2013 [facility] [place] [facility] [address] [id number] [place] [address] 2546 16 Sep, 2013 [facility] [place] [facility] [address] [id number] [place] [address] 2546 16 Sep, 2013 [facility] [place] [facility] [address] [id number] [place] [address] 2548 16 Sep, 2013 [facility] [place] [facility] [address] [id number] [place] [address] 2542 16 Sep, 2013 [facility] [place] [facility] [address] [id number] [place] [address] 2544 16 Sep, 2013 [facility] [place] [facility] [address] [id number] [place] [address] 2541 16 Sep, 2014 [facility] [place] [facility] [address] [id number] [place] [address] 2543 11 Sep, 2013 [facility] [place] [facility] [address] [id number] [place] [address]- 2543 11 Sep, 2013 [facility] [place] [facility] [address] [id number] [place] [address] 2546 10 Sep, 2013 [facility] [place] [facility] [address] [id number] [place] [address] 2546 10 Sep, 2013 [facility] [place] [facility] [address] [id number] [place] [address]- 2546 07 Sep, 2013 [facility] [place] [facility] [address] [id number] [place] [address]- 2546 Feb, [facility] [place] [facility] [address] [id number] [place] [address]- 6302 Feb, [facility] [place] [facility] [address] [id number] [place] [address]- 9152 Feb, [facility] [place] [facility] [address] [id number] [place] [address]- 3028 Feb, [facility] [place] [facility] [address] [id number] [place] [address]- 4069 Jan, [facility] [place] [facility] [address] [id number] [place] [address]- 3264 Jan, [facility] [place] [facility] [address] [id number] [place] [address]- 8202 Jan, [facility] [place] [facility] [address] [id number] [place] [address]- 1504 Jan, [facility] [place] [facility] [address] [id number] [place] [address]- 3348 Nov, [facility] [place] [facility] [address] [id number] [place] [address]- 3796 Nov, [facility] [place] [facility] [address] [id number] [place] [address]- 1237 October, [facility] [place] [facility] [address] [id number] [place] [address]- 1917 October, [facility] [place] [facility] [address] [id number] [place] [address]- 5044 October, [facility] [place] [facility] [address] [id number] [place] [address]- 5524 October, [facility] [place] [facility] [address] [id number] [place] [address]- 4319 October, [facility] [place] [facility] [address] [id number] [place] [address]- 4675 October, [facility] [place] [facility] [address] [id number] [place] [address]- 8446 October, [facility] [address] [id number] [place] 8731 October, [facility] [place] [facility] [address] [id number] [place] [address]- 3801 Sep, [facility] [place] [facility] [address] [id number] [place] [address]- 9905 Sep, [facility] [place] [facility] [address] [id number] [place] [address]- 9015 Sep, [facility] [place] [facility] [address] [id number] [place] 5529 Sep, [facility] [place] [facility] [address] [id number] [place] [address]- 5276 Jul, [facility] [place] [facility] [address] [id number] [place] [address]- 3204 Jul, [facility] [place] [facility] [address] [id number] [place] [address]- 7723 May, [facility] [place] [facility] [address] [id number] [place] [address]- 5301 May, [facility] [place] [facility] [address] [facility] [id number] [place] [address]- 9434 Apr, [facility] [place] [facility] [address] [id number] [place] [address]- 0938 Apr, [facility] [place] [facility] [address] [id number] [place] [address]- 0270 Apr, [facility] [place] [facility] [address] [id number] [place] 1368 Apr, [facility] [place] [facility] [address] [id number] [place]- 7728 Mar, [facility] [place] [facility] [address] [id number] [place] 8246 Mar, [facility] [place] [facility] [address] [id number] [place] [address]- 2548 Mar, [facility] [address] [id number] [place] [address]- 2546 Mar, [facility] [address] [id number] [place] [address]- 2546 Feb, [facility] [address] [id number] [place] [address] 2545 Jan, [facility] [address] [id number] [place] [address]- 7072 Jan, [facility] [address] [id number] [place] [address]- 4306 Jan, [facility] [address] [id number] [place] [address]- 4464 Dec, [facility] [address] [id number] [place] [address]- 7236 October, [facility] [address] [id number] [place] [address]- 5067 October, [facility] [address] [id number] [place] [address]- 4396 October, [facility] [address] [id number] [place] [address]- 2546 October, [facility] [address] [id number] [place] [address]- 2546 October, [facility] [address] [id number] [place] [address]- 2546 October, [facility] [address] [id number] [place] [address]- 2546 Sep, [facility] [address] [id number] [place] [address]- 2546 Sep, [facility] [address] [id number], [place] [address]- 8905 Jul, [facility] [address] [id number] [place] [address]- 5505 Jun, [facility] [place] [facility] [address] [id number] [place] [address]- 6596 Jun, [facility] [place] [facility] [address] [id number] [place] [address]- 0889 Jun, [facility] [place] [facility] [address] [id number] [place] [address]- 4425 May, [facility] [place] [facility] [address] [id number] [place] [address]- 3811 May, [facility] [place] [facility] [address] [id number] [place] [address]- 4394 May, [facility] [place] [facility] [address] [id number] [place] [address]- 7756 May, [facility] [place] [facility] [address] [id number] [place] [address]- 8965 May, [facility] [place] [facility] [address] [id number] [place] [address]- 6598 May, [facility] [place] [facility] [address] [id number] [place] [address]- 2919 Mar, [facility] [place] [facility] [address] [id number], [place] [address]- 6492 Mar, [facility] [place] [facility] [address] [id number], [place] [address]- 6894 Mar, [facility] [place] [facility] [address] [id number] [place] [address]- 5926 Mar, [facility] [place] [facility] [address] [id number] 1304 Feb, [facility] [place] [facility] [address] [id number] [place] [address]- 0809 Dec, [facility] [place] [facility] [id number] [address]- 7056 Dec, [facility] [id number] [address]- 9846 Dec, [facility] [address], [place] [address]- 7929 Nov, [facility] [address], [place] [address]- 7224 Nov, [facility] [address] [facility] [id number], [place] [address]- 5229 Nov, [facility] [address], [place] [address]- 6542 Nov, [facility] [address], [place] [address]- 2866 Aug, [facility] [address], [place] [address]- 7326 Jun, [facility] [address], [place] [address]- 0611 May, [facility] [id number] [address]- 3334 Apr, [facility] [id number] [address]- 6167 Mar, [facility] [id number] [address]- 9516 May, IMMUNIZATIONS No Known Immunizations SOCIAL HISTORY Never Assessed REASON FOR VISIT Pt not feeling well PLAN OF CARE VITAL SIGNS MEDICATIONS No Known Medications RESULTS No Results PROCEDURES No Known [...]
--- OUTSIDE RECORDS SUMMARY | 2018-05-13 07:39 | XMS REPORT ---
Author Author PRECIOUS BOTELLO [facility] Address [address] [place] [address] Care Team Providers Care Coil Assembler Name Role Phone PRECIOUS BOTELLO Unavailable PROBLEMS Type Condition ICD9-CM Code AAQ01-EP Code Onset Dates Condition Status SNOMED Code Problem Status post closed fracture of hip Z87.81 Active 199230592 Problem Dementia in other diseases classified elsewhere without behavioral disturbance F02.80 Active 298510408 Problem Type 2 diabetes mellitus with other circulatory complication, without long-term current use of insulin E11.59 Active 08548763 Problem Panlobular emphysema J43.1 Active 0773620 Problem Enlarged prostate with lower urinary tract symptoms N40.1 Active 587751701535715 Problem Benign prostatic hyperplasia with lower urinary tract symptoms N40.1 Active 695133039 Problem Polydipsia R63.1 Active 35333508 Problem Depression F32.9 Active 98209813 Problem Type 2 diabetes mellitus with hyperglycemia E11.65 Active 353372722866433 Problem HTN (hypertension) I10 Active 01529050 Problem Bipolar disorder, unspecified F31.9 Active 28162060 Problem Acute left-sided low back pain with left-sided sciatica M54.42 Active 923790221 Problem Low back pain, unspecified back pain laterality, with sciatica presence unspecified M54.5 Active 719186012 Problem 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 Active 26785672 Problem Type 2 diabetes mellitus with diabetic polyneuropathy E11.42 Active 935726463 Problem GERD with esophagitis K21.0 Active 717174352 Problem Status post partial amputation of left foot Z89.432 Active 603013727 Problem Hammer toe, unspecified laterality M20.40 Active 858112766 Problem Tinea pedis, unspecified laterality B35.3 Active 7747981 Problem Other Alzheimers disease G30.8 Active 49784522 Problem Peripheral vascular disease due to secondary diabetes E13.51 Active 4224461 Problem Severe pain R52 Active 41712813 ALLERGIES No Information ENCOUNTERS Encounter Location Date Diagnosis [place] [address], [place] [address] Nov, [place] [address] [place] [address] [id number] [place] [address] 858422- 8360 October, Arthralgia, unspecified joint M25.50 [facility] [address] [id number] October, Arthralgia, unspecified joint M25.50 [facility] [address] [id number] Sep, Weakness R53.1 ; Panlobular emphysema J43.1 ; Bipolar disorder, unspecified F31.9 ; Benign prostatic hyperplasia with lower urinary tract symptoms N40.1 and Frequency of micturition R35.0 [place] [address] [id number] [place] [address] 33451- 6790 Sep, [place] [address] [id number] [place] [address] 22556- 6012 Aug, [facility] [address] [id number] Jul, Dementia in other diseases classified elsewhere without behavioral disturbance F02.80 [place] [address] [address] [id number] [place] [address] [id number] Jul, [place] [id number] [place] [address] 69563- 8323 Jun, Bipolar disorder, unspecified F31.[address] [facility] [address] [id number] Jun, Pneumonia due to infectious organism, unspecified laterality, unspecified part of lung J18.9 [place] [address] [id number] [place] [address] 38243- 8156 Jun, [place] [address] [address] [id number] [place] [address] [id number] Jun, [facility] [address] [id number] Apr, Type 2 diabetes mellitus with other circulatory complication, without long -term current use of insulin E11.59 [place] [address], [place] [address] 2546 Apr, [place] [address] [id number] [id number] Feb, [place] [address] [address] [id number] [place] [address] [id number] Feb, [address] [id number] Feb, Sore throat J02.9 and Polyuria R35.8 [place] [address] [address] [id number] [place] [id number] Jan, [facility] [id number] Dec, Cervicalgia M54.2 [place] [id number] [place] [address]65 2546 October, Acute left-sided low back pain with left-sided sciatica M54.42 and Cervicalgia M54.2 [place] [address], [place] [address] 2546 Sep, Acute left-sided low back pain with left-sided sciatica M54.42 [place] [address] [address] [id number] [place] [address] [id number] Sep, C[facility]icalgia M54.2 [facility] [id number] Sep, Cervicalgia M54.2 and Acute left-sided low back pain with left-sided sciatica M54.42 [place] [address] [place] [address] [id number] [place] [address] [id number] Sep, [facility] [id number] Jul, Type 2 diabetes mellitus with hyperglycemia E11.65 ; Bipolar disorder F31.9 ; 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 ; Peripheral vascular disease due to secondary diabetes E13.51 and Status post partial amputation of left foot Z89.432 [place] [address], [place] [address] 7196 Mar, [place] [address] [place] [address] 00863- 3143 Mar, [place] [address] [address] [id number] [place] [address] 32735- 3887 Mar, [facility] [address] [id number] Mar, Dementia in other diseases classified elsewhere without behavioral disturbance F02.80 ; Polydipsia R63.1 ; HTN (hypertension) I10 ; Hypo- osmolality and hyponatremia E87.1 ; Type 2 diabetes mellitus with other circulatory complication, without long-term current use of insulin E11.59 ; Peripheral vascular disease due to secondary diabetes E13.51 and Bipolar disorder, unspecified F31.9 [place] [address] [place] [address] 19138- 9458 Feb, [place] [address] [place] [address] 02460- 5735 Jan, [place] [address] [place] [address] 02115- 3719 Jan, [facility] [address] [id number] Jan, Pain of left hip joint M25.552 ; Tobacco abuse Z72.0 and Polydipsia R63.1 [place] [address], [place] [address] 48[address] Jan, [place] [address] [place] [address] [id number] [place] [address] 44980- 0171 Jan, [place] [address] [place] [address] 91606- 1255 Dec, [place] [address] [place] [address] 11110- 3528 Dec, [facility] [address] [id number] Dec, Status post partial amputation of left foot Z89.432 and Peripheral vascular disease due to secondary diabetes E13.51 [facility] [address], [place] [address] 237[address] Dec, [facility] [address], [place] [address] 0522 Dec, [facility] [address], [place] [address]- 5856 Dec, [facility] [address], [place] [address] 4234 Nov, [facility] [address], [place] [address] 5[address] Nov, [facility] [address] [id number] Nov, Severe pain R52 and Status post closed fracture of hip Z87.81 [facility] [address], [place] [address]- 4509 Nov, [facility] [address], [place] [address]- 2412 Nov, [facility] [address], [place] [address]- 4230 October, Severe pain R52 [facility] [address], [place] [address]- 9457 October, [facility] [address] [place] [id number], [place] [address] 1747 October, Other Alzheimers disease G30.8 and Dementia in other diseases classified elsewhere without behavioral disturbance F02.80 [facility] [address], [place] [address]- 4286 Sep, [facility] [address], [place] [address] 3085 Aug, [facility] [id number] Aug, Status post partial amputation of left foot Z89.432 ; 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 and Peripheral vascular disease due to secondary diabetes E13.51 [place] [address], [place] [address]- 6[address] Jun, [place] [address] [place] [address] 87298- 3036 Jun, [facility] [id number] Jun, 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 and Status post partial amputation of left foot Z89.432 [facility] [id number] May, Peripheral vascular disease due to secondary diabetes E13.51 ; Status post partial amputation of left foot Z89.432 and 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 [place] [address] [place] [address] 01062- 8632 Mar, Gangrene associated with type II diabetes mellitus E11.52 [place] [address] [place] [address] 44177- 4539 Mar, [address] [id number] Mar, [place] [address] [place] [address] 25707- 4572 Feb, Nicotine abuse 305.1 [place] [address] [place] [address] [id number] [place] [address] 23168- 2686 Feb, [place] [address] [place] [address] 83255- 4370 Feb, [place] [address] [place] [address] [id number] [place] [address] 97302- 2546 Jan, [place] [address], [place] [address]- 5509 Jan, Diabetes 250.00 ; Peripheral vascular disease 443.9 and Bipolar affective disorder 296.80 [facility] [address], [place] [address]- 7105 Dec, [facility] [address] [place] [id number] [place] [address]- 1316 Dec, [facility] [address], [place] [address]- 8386 Dec, [facility] [address] [place] [id number] [place] [address] 95185- 7114 Dec, [facility] [address], [place] [address]- 6414 Dec, Diabetes mellitus without mention of complication, type II or unspecified type, uncontrolled 250.02 and Vertigo 780.4 [facility] [address], [place] [address]- 0955 Nov, [facility] [address] [place] [id number] [place] [address] 35237- 7125 October, Follow-up examination V67.9 ; Diabetes mellitus without mention of complication, type II or unspecified type, uncontrolled 250.02 and Upper respiratory infection 465.9 [facility] [address], [place] [address]- 5435 October, [facility] [address], [place] [address]- 2290 Sep, [facility] [address], [place] [address]- 7482 Sep, [facility] [address], [place] [address]- 0229 Aug, [facility] [address] [place] [id number] [address]- 0646 Aug, [facility] [address] [place] [id number], [place] [address]- 5666 Aug, [facility] [address] [place] [id number] [place] [address] 67111- 6560 Jul, 2014 [facility] [place] [facility] [address] [id number] [place] [address]- 3781 Jul, 2014 [facility] [place] [facility] [address] [id number] [place] [address]- 6406 Jul, 2014 [facility] [place] [facility] [address] [facility] [id number] [place] [address]- 4006 Jul, [facility] [place] [facility] [address] [id number] [place] [address]- 5557 May, [facility] [place] [facility] [address] [id number] [place] [address]- 5281 May, [facility] [place] [facility] [address] [facility] [id number] [place] [address]- 1449 May, [facility] [place] [facility] [address] [facility] [id number] [place] [address]- 4198 May, [facility] [place] [facility] [address] [facility] [id number] [place] [address]- 9815 Apr, [facility] [place] [facility] [address] [facility] [id number] [place] [address]- 5697 Apr, [facility] [place] [facility] [address] [facility] [id number] [place] [address]- 6366 Mar, [facility] [place] [facility] [address] [facility] [id number] [place] [address]- 1039 Mar, [facility] [place] [facility] [address] [facility] [id number] [address]- 9603 Mar, [facility] [place] [facility] [address] [id number] [place] [address]- 2645 Mar, [facility] [place] [facility] [address] [facility] [id number] [place] [address]- 3518 Feb, [facility] [place] [facility] [address] [facility] [id number] [place] 3541 Feb, [facility] [place] [facility] [address] [id number] [place] [address]- 4747 23 Sep, 2013 [facility] [place] [facility] [address] [id number] [place] [address]- 2699 23 Sep, 2013 [facility] [place] [facility] [address] [id number] [place] [address]- 4721 22 Sep, 2013 [facility] [place] [facility] [address] [id number] [place] [address] 2542 22 Sep, 2013 [facility] [place] [facility] [address] [id number] [place] [address]- 6529 16 Sep, 2013 [facility] [place] [facility] [address] [id number] [place] [address]- 2541 16 Sep, 2013 [facility] [place] [facility] [address] [id number] [place] [address]- 9449 16 Sep, 2013 [facility] [place] [facility] [address] [id number] [place] [address]- 5268 16 Sep, 2013 [facility] [place] [facility] [address] [id number] [place] [address]- 254 16 Sep, 2013 [facility] [place] [facility] [address] [id number] [place] [address]- 5134 16 Sep, 2013 [facility] [place] [facility] [address] [id number] [place] [address]- 2541 11 Sep, 2013 [facility] [place] [facility] [address] [id number] [place] [address]- 2541 11 Sep, 2013 [facility] [place] [facility] [address] [id number] [place] [address]- 254 10 Sep, 2013 [facility] [place] [facility] [address] [id number] [place] [address]- 2546 10 Sep, 2013 [facility] [place] [facility] [address] [id number] [place] [address]- 8651 07 Sep, 2013 [facility] [place] [facility] [address] [id number] [place] [address]- 4352 Feb, [facility] [place] [facility] [address] [id number] [place] [address]- 4090 Feb, [facility] [place] [facility] [address] [id number] [place] 0836 Feb, [facility] [place] [facility] [address] [id number] [place] [address]- 5789 Feb, [facility] [place] [facility] [address] [id number] [place] [address]- 3883 Jan, [facility] [place] [facility] [address] [id number] [place] [address]- 8842 Jan, [facility] [place] [facility] [address] [id number] [place] [address]- 3117 Jan, [facility] [place] [facility] [address] [id number] [place] [address]- 6416 Jan, [facility] [place] [facility] [address] [id number] [place] [address]- 4004 Nov, [facility] [place] [facility] [address] [id number] [place] [address]- 5428 Nov, [facility] [place] [facility] [address] [id number] [place] [address]- 7244 October, [facility] [place] [facility] [address] [id number] [place] [address]- 0881 October, [facility] [place] [facility] [address] [id number] [place] [address]- 9628 October, [facility] [place] [facility] [address] [id number] [place] [address]- 8672 October, [facility] [place] [facility] [address] [id number] [place] [address]- 1564 October, [facility] [place] [facility] [address] [id number] [place] [address]- 6445 October, [facility] [place] [facility] [address] [id number] [place] [address]- 2433 October, [facility] [address] [id number] [place] [address]- 3991 October, [facility] [place] [facility] [address] [id number] [place] [address]- 9381 Sep, [facility] [address] [id number] [place] [address]- 5307 Sep, [facility] [place] [facility] [address] [id number] [place] [address]- 6737 Sep, [facility] [address] [id number] [place] [address]- 8202 Sep, [facility] [address] [id number] [place] [address]- 0914 Jul, [facility] [place] [facility] [address] [id number] [place] [address]- 1841 Jul, [facility] [address] [id number] [place] [address]- 9547 May, [facility] [address] [id number] [place] [address]- 9484 May, [facility] [address] [facility] [id number] [place] [address]- 2922 Apr, [facility] [place] [facility] [address] [id number] [place] [address]- 4081 Apr, [facility] [place] [facility] [address] [id number] [place] [address]- 9536 Apr, [facility] [place] [facility] [address] [id number] [place] [address]- 1297 Apr, [facility] [place] [facility] [address] [id number] [place] [address]- 2546 Mar, [facility] [place] [facility] [address] [id number] [place] [address]- 2172 Mar, [facility] [address] [id number] [place] [address]- 2773 Mar, [facility] [place] [facility] [address] [id number] [place] [address]- 2239 Mar, [facility] [place] [facility] [address] [id number] [place] [address]- 4468 Feb, [facility] [place] [facility] [address] [id number] [place] [address]- 7689 Jan, [facility] [address] [id number] [place] 9142 Jan, [facility] [place] [facility] [address] [id number] [place] [address]- 9090 Jan, [facility] [place] [facility] [address] [id number] [place] [address]- 0780 Dec, [facility] [place] [facility] [address] [id number] [place] [address]- 0069 October, [facility] [place] [facility] [address] [id number] [place] [address]- 7110 October, [facility] [place] [facility] [address] [id number] [place] [address]- 9087 October, [facility] [place] [facility] [address] [id number] [place] [address]- 0328 October, [facility] [place] [facility] [address] [id number] [place] [address]- 2663 October, [facility] [place] [facility] [address] [id number] [place] [address]- 0296 October, [facility] [place] [facility] [address] [id number] [place] [address]- 4276 Sep, [facility] [place] [facility] [address] [id number] [place] [address]- 8518 Sep, [facility] [place] [facility] [address] [id number] [place] [address]- 7569 Jul, [facility] [address] [id number] [place] [address]- 0442 Jun, [facility] [place] [facility] [address] [id number] [place]- 8962 28 Jun, 2012 [facility] [address] [id number] [place] [address]- 0560 Jun, [facility] [place] [facility] [address] [id number] [place] [address]- 6747 May, [facility] [place] [facility] [address] [id number] [place] [address]- 5483 May, [facility] [place] [facility] [address] [id number] [place] [address]- 7654 May, [facility] [address] [id number] [place] [address]- 6921 May, [facility] [place] [facility] [address] [id number] [place] [address]- 0856 May, [facility] [place] [facility] [address] [id number] [place] [address]- 9518 May, [facility] [place] [facility] [address] [id number] [place] [address]- 1347 Mar, [facility] [place] [facility] [address] [id number] [place] [address]- 4864 Mar, [facility] [place] [facility] [address] [id number] [place] [address]- 9646 Mar, [facility] [place] [facility] [address] [id number] [place] [address]- 7299 Mar, [facility] [place] [facility] [address] [id number] [place] 6860 Feb, [facility] [place] [facility] [address] [id number] [place] [address]96 Dec, [facility] [id number], [place] [address]- 6021 Dec, [facility] [address], [place] [address]- 1350 Dec, [facility] [address], [place] [address]- 5038 Nov, [facility] [address], [place] [address]- 1654 Nov, [facility] [address], [place] [address]- 7469 Nov, [facility] [address], [place] [address]- 4520 Nov, [facility] [address], [place] [address]- 1410 Aug, [facility] [address], [place] [address]- 1766 Jun, [facility] [address], [place] [address]- 3433 May, [facility] [id number] [address] Apr, [facility] [id number] [address] Mar, [facility] [id number] [address] May, IMMUNIZATIONS No Known Immunizations SOCIAL HISTORY Never Assessed REASON FOR VISIT Celexa PLAN OF CARE VITAL SIGNS MEDICATIONS No [...]
--- OUTSIDE RECORDS SUMMARY | 2018-05-13 07:40 | XMS REPORT ---
Author Author PRECIOUS BOTELLO [facility] Address [address] [place] [address] Care Team Providers Care Warehouse Representative Name Role Phone PRECIOUS BOTELLO Unavailable PROBLEMS Type Condition ICD9-CM Code TUS00-DZ Code Onset Dates Condition Status SNOMED Code Problem Status post closed fracture of hip Z87.81 Active 082153133 Problem Dementia in other diseases classified elsewhere without behavioral disturbance F02.80 Active 448040129 Problem Type 2 diabetes mellitus with other circulatory complication, without long-term current use of insulin E11.59 Active 32578987 Problem Panlobular emphysema J43.1 Active 1155907 Problem Enlarged prostate with lower urinary tract symptoms N40.1 Active 963688554746309 Problem Benign prostatic hyperplasia with lower urinary tract symptoms N40.1 Active 443911738 Problem Polydipsia R63.1 Active 65743704 Problem Depression F32.9 Active 03474495 Problem Type 2 diabetes mellitus with hyperglycemia E11.65 Active 999136670594741 Problem HTN (hypertension) I10 Active 14421110 Problem Bipolar disorder, unspecified F31.9 Active 58083901 Problem Acute left-sided low back pain with left-sided sciatica M54.42 Active 065152825 Problem Low back pain, unspecified back pain laterality, with sciatica presence unspecified M54.5 Active 000165899 Problem 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 Active 42129549 Problem Type 2 diabetes mellitus with diabetic polyneuropathy E11.42 Active 833344702 Problem GERD with esophagitis K21.0 Active 176722121 Problem Status post partial amputation of left foot Z89.432 Active 749749424 Problem Hammer toe, unspecified laterality M20.40 Active 333222831 Problem Tinea pedis, unspecified laterality B35.3 Active 2329819 Problem Other Alzheimers disease G30.8 Active 05433982 Problem Peripheral vascular disease due to secondary diabetes E13.51 Active 2871861 Problem Severe pain R52 Active 99534931 ALLERGIES No Information ENCOUNTERS Encounter Location Date Diagnosis [place] [address] [id number] October, Arthralgia, unspecified joint M25.50 [facility] [address] [id number] October, Arthralgia, unspecified joint M25.50 [facility] [address] [id number] Sep, Weakness R53.1 ; Panlobular emphysema J43.1 ; Bipolar disorder, unspecified F31.9 ; Benign prostatic hyperplasia with lower urinary tract symptoms N40.1 and Frequency of micturition R35.0 [place] [id number] [place] [address] Sep, [place] [address] [place] [id number] [place] [address] Aug, [facility] [id number] Jul, Dementia in other diseases classified elsewhere without behavioral disturbance F02.80 [place] [address] [place] [id number] [place] [id number] Jul, [place] [id number] [place] [id number]- [address] Jun, Bipolar disorder, unspecified F31.[address] [id number] Jun, Pneumonia due to infectious organism, unspecified laterality, unspecified part of lung J18.9 [place] [address], [place] [address] Jun, [place] [address] [place] [id number] [place] [id number] Jun, [address] [id number] Apr, Type 2 diabetes mellitus with other circulatory complication, without long -term current use of insulin E11.59 [place] [address] [place] [id number] [address] Apr, [place] [id number] [id number] Feb, [place] [id number] [id number] Feb, [facility] [address] [id number] Feb, Sore throat J02.9 and Polyuria R35.8 [place] [address] [id number] [address] Jan, Bronchitis J40 [facility] [address] [id number] Dec, Cervicalgia M54.2 [place] [address] [place] [address] [id number] [address] 2546 October, Acute left-sided low back pain with left-sided sciatica M54.42 and Cervicalgia M54.2 [place] [address] [place] [address] [id number] [address] Sep, Acute left-sided low back pain with left-sided sciatica M54.42 [place] [id number] [id number] Sep, Cervicalgia M54.[address] [facility] [address] [id number] Sep, Cervicalgia M54.2 and Acute left-sided low back pain with left-sided sciatica M54.42 [place] [address] [id number] [id number] Sep, [facility] [address] [id number] Jul, Type 2 diabetes mellitus with hyperglycemia E11.65 ; Bipolar disorder F31.9 ; 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 ; Peripheral vascular disease due to secondary diabetes E13.51 and Status post partial amputation of left foot Z89.432 [place] [address], [place] [address] Mar, [facility] [address], [place] [address] Mar, [facility] [address], [place] [address] 99[address] Mar, [facility] [address] [id number] Mar, Dementia in other diseases classified elsewhere without behavioral disturbance F02.80 ; Polydipsia R63.1 ; HTN (hypertension) I10 ; Hypo- osmolality and hyponatremia E87.1 ; Type 2 diabetes mellitus with other circulatory complication, without long-term current use of insulin E11.59 ; Peripheral vascular disease due to secondary diabetes E13.51 and Bipolar disorder, unspecified F31.9 [facility] [address], [place] [address] Feb, [place] [address], [place] [address] Jan, [facility] [address], [place] [address] Jan, [facility] [place] [address] [id number] Jan, Pain of left hip joint M25.552 ; Tobacco abuse Z72.0 and Polydipsia R63.1 [place] [address], [place] [address] 6[address] Jan, [facility] [address], [place] [address] 88[address] Jan, [place] [address], [place] [address] Dec, [facility] [address], [place] [address] Dec, [facility] [place] [address] [address] Dec, Status post partial amputation of left foot Z89.432 and Peripheral vascular disease due to secondary diabetes E13.51 [facility] [address], [place] [address] 0237 Dec, [facility] [address], [place] [address] 6153 Dec, [facility] [address], [place] [address] 2558 Dec, [facility] [address], [place] [address] 8[address] Nov, [facility] [address], [place] [address] Nov, [facility] [place] [address] [address] Nov, Severe pain R52 and Status post closed fracture of hip Z87.81 [facility] [address], [place] [address] 96[address] Nov, [facility] [address], [place] [address] 8[address] Nov, [facility] [address], [place] [address] October, Severe pain R52 [facility] [address], [place] [address]- 69[address] October, [facility] [address], [place] [address] 78[address] October, Other Alzheimers disease G30.8 and Dementia in other diseases classified elsewhere without behavioral disturbance F02.80 [facility] [address], [place] [address] Sep, [facility] [address], [place] [address] Aug, [facility] [place] [address] [id number] Aug, Status post partial amputation of left foot Z89.432 ; 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 and Peripheral vascular disease due to secondary diabetes E13.51 [place] [address], [place] [address] Jun, [facility] [address], [place] [address]- 07[address] Jun, [facility] [place] [address] [address] Jun, 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 and Status post partial amputation of left foot Z89.432 [facility] [place] [address] [id number] May, Peripheral vascular disease due to secondary diabetes E13.51 ; Status post partial amputation of left foot Z89.432 and 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 [place] [address], [place] [address]- 0987 Mar, Gangrene associated with type II diabetes mellitus E11.52 [place] [id number] [place] [address]- 6697 Mar, [facility] [place] [address] [address] Mar, [place] [id number] [place] [address] Feb, Nicotine abuse 305.1 [place] [id number] [place] [address]- 4830 Feb, [place] [address] [place] [id number] [place] [address]- 4214 Feb, [facility] [id number] [place] [address]- 2808 Jan, [place] [address] [place] [id number] [place] [address] 7537 Jan, Diabetes 250.00 ; Peripheral vascular disease 443.9 and Bipolar affective disorder 296.80 [place] [address] [place] [id number] [place] [address]- 1703 Dec, [facility] [address] [place] [id number], [place] [address]- 67[address] Dec, [facility] [address], [place] [address]- 2946 Dec, [facility] [address], [place] [address]- 2546 Dec, [facility] [address], [place] [address]- 8[address] Dec, Diabetes mellitus without mention of complication, type II or unspecified type, uncontrolled 250.02 and Vertigo 780.4 [facility] [address], [place] [address]- 9266 Nov, [facility] [address], [place] [address]- 99[address] October, Follow-up examination V67.9 ; Diabetes mellitus without mention of complication, type II or unspecified type, uncontrolled 250.02 and Upper respiratory infection 465.9 [facility] [address], [place] [address] 6466 October, [facility] [address], [place] [address]- 3133 Sep, [facility] [address] [place] [id number], [place] [address]- 1856 Sep, [facility] [address], [place] [address]- 0426 Aug, [facility] [address] [place] [id number], [place] [address]- 9286 Aug, [facility] [address], [place] [address]- 5186 Aug, [facility] [address] [place] [id number], [place] [address]- 8816 Jul, [facility] [address] [place] [address]- [address] Jul, 2014 [facility] [place] [facility] [address] [id number] [place] [address]- 4061 Jul, 2014 [facility] [place] [facility] [address] [id number] [place] 97[address] Jul, [facility] [place] [facility] [address] [id number] [place] [address] May, [facility] [place] [facility] [address] [id number] [place] [address]- 2847 May, [facility] [place] [facility] [address] [id number] [place] 8799 May, [facility] [place] [facility] [address] [id number] [place] [address]- 6738 May, [facility] [place] [facility] [address] [id number] [place] [address]- 5004 Apr, [facility] [place] [facility] [address] [id number] [place] [address]- 0701 Apr, [facility] [place] [facility] [address] [id number] [place] [address]- 3534 Mar, [facility] [place] [facility] [address] [facility] [id number] [place] [address]- 6620 Mar, [facility] [place] [facility] [address] [id number] [place] [address]- 2654 Mar, [facility] [place] [facility] [address] [id number] [address]- 0421 Mar, [facility] [place] [facility] [address] [id number] [place] [address]- 1770 29 Feb, 2014 [facility] [place] [facility] [address] [id number] [place] [address]- 0799 29 Feb, 2014 [facility] [place] [facility] [address] [id number] [place]- [address]184 23 Feb, 2014 [facility] [place] [facility] [address] [id number] [place] [address]- 5052 23 Sep, 2013 [facility] [place] [facility] [address] [id number] [place] [address]- 9210 22 Sep, 2013 [facility] [place] [facility] [address] [id number] [place] [address]- 5334 22 Sep, 2013 [facility] [place] [facility] [address] [id number] [place] [address]- 2549 16 Sep, 2013 [facility] [place] [facility] [address] [id number] [place] [address]- 6507 16 Sep, 2013 [facility] [place] [facility] [address] [id number] [place] [address]- 7594 16 Sep, 2013 [facility] [place] [facility] [address] [id number] [place] [address]- 0111 16 Sep, 2013 [facility] [place] [facility] [address] [id number] [place] [address]- 5877 16 Sep, 2013 [facility] [place] [facility] [address] [id number] [place] [address]- 2425 16 Sep, 2013 [facility] [place] [facility] [address] [id number] [place] [address]- 8322 11 Sep, 2013 [facility] [place] [facility] [address] [id number] [place] [address]- 2250 11 Sep, 2013 [facility] [place] [facility] [address] [id number] [place] [address]- 254 10 Sep, 2013 [facility] [place] [facility] [address] [id number] [place] [address]- 2541 10 Sep, 2013 [facility] [place] [facility] [address] [id number] [place] [address]- 2549 07 Sep, 2013 [facility] [place] [facility] [address] [id number] [place] [address]- 4600 04 Sep, 2013 [facility] [place] [facility] [address] [id number] [place] [address]- 8836 Feb, [facility] [place] [facility] [address] [id number] [place] [address]- 9696 Feb, [facility] [place] [facility] [address] [id number] [place] [address]99 Feb, [facility] [place] [facility] [address] [id number] [place] [address]- 5856 Jan, [facility] [place] [facility] [address] [id number] [place] [address]- 1740 Jan, [facility] [place] [facility] [address] [id number] [place] [address]- 7239 Jan, [facility] [place] [facility] [address] [id number] [place] [address]- 3596 Jan, [facility] [place] [facility] [address] [id number] [place] [address]- 1959 Nov, [facility] [place] [facility] [address] [id number] [place] [address]- 1218 Nov, [facility] [place] [facility] [address] [id number] [place] [address]- 7764 October, [facility] [place] [facility] [address] [id number] [place] [address]- 5969 October, [facility] [place] [facility] [address] [id number] [place] [address]- 7448 October, [facility] [place] [facility] [address] [id number] [place] [address]- 3485 October, [facility] [place] [facility] [address] [id number] [place] [address]- 8683 October, [facility] [place] [facility] [address] [id number] [place] [address]- 6541 October, [facility] [place] [facility] [address] [id number] [place] 3948 October, [facility] [place] [facility] [address] [id number] [place] [address]- 7082 October, [facility] [address] [id number] [place] [address]- 1867 Sep, [facility] [place] [facility] [address] [id number] [place] [address]- 1337 Sep, [facility] [address] [id number] [place] [address]- 9341 Sep, [facility] [place] [facility] [address] [id number] [place] [address]- 2479 Sep, [facility] [place] [facility] [address] [id number] [place] [address]- 1099 Jul, [facility] [place] [facility] [address] [id number] [place] [address]- 3783 Jul, [facility] [place] [facility] [address] [id number] [place] [address]- 7701 May, [facility] [address] [id number] [place] 6914 May, [facility] [place] [facility] [address] [id number] [place] [address]- 6166 Apr, [facility] [address] [facility] [id number] [place] [address]- 6765 Apr, [facility] [place] [facility] [address] [id number] [place] [address]- 4498 Apr, [facility] [place] [facility] [address] [id number] [place] [address]- 5263 Apr, [facility] [place] [facility] [address] [id number] [place] [address]- 7527 Mar, [facility] [place] [facility] [address] [id number] [place] [address]- 2546 Mar, [facility] [place] [facility] [address] [id number] [place] [address]- 9759 Mar, [facility] [address] [id number] [place] [address]- 4636 Mar, [facility] [place] [facility] [address] [id number] [place] [address]- 4626 Feb, [facility] [address] [id number] [place] [address]- 7033 Jan, [facility] [place] [facility] [address] [id number] [place] [address]- 2356 Jan, [facility] [address] [id number] [place] [address]- 7940 Jan, [facility] [place] [facility] [address] [id number] [place] [address]- 5693 Dec, [facility] [place] [facility] [address] [id number] [place] [address]- 3214 October, [facility] [place] [facility] [address] [id number] [place] [address]- 2527 October, [facility] [place] [facility] [address] [id number] [place] [address]- 4196 October, [facility] [place] [facility] [address] [id number] [place] [address]- 1647 October, [facility] [place] [facility] [address] [id number] [place] [address]- 0490 October, [facility] [place] [facility] [address] [id number] [place] [address]- 3060 October, [facility] [place] [facility] [address] [id number] [place] [address]- 9278 Sep, [facility] [place] [facility] [address] [id number] [place] [address]- 5646 Sep, [facility] [place] [facility] [address] [id number] [place] [address]- 9839 Jul, [facility] [place] [facility] [address] [id number] [place] [address]- 1603 31 Jun, 2012 [facility] [address] [id number] [place] [address]- 0850 Jun, [facility] [place] [facility] [address] [id number] [place] 2334 Jun, [facility] [address] [id number] [place] [address]- 3983 May, [facility] [place] [facility] [address] [id number] [place] [address]- 8605 May, [facility] [place] [facility] [address] [id number] [place] 98[address] May, [facility] [place] [facility] [address] [id number] [place] [address]- 3931 May, [facility] [address] [id number] [place] [address]- 8950 May, [facility] [place] [facility] [address] [id number] [place] [address]- 6136 May, [facility] [place] [facility] [address] [id number] [place] [address]- 8601 Mar, [facility] [place] [facility] [address] [id number] [place] [address]- 2867 Mar, [facility] [place] [facility] [address] [id number] [place] [address]- 1491 Mar, [facility] [place] [facility] [address] [id number] [place] [address]- 1172 Mar, [facility] [place] [facility] [address] [id number] [place] [address]- 5268 Feb, [facility] [place] [facility] [address] [id number] [place] [address]- 7966 Dec, [facility] [place] [facility] [address] [id number] [place] [address]- 2361 Dec, [facility] [id number] [address]- 6436 Dec, [facility] [address], [place] [address]- 1157 Nov, [facility] [address] [facility] [id number], [place] [address]- 8726 Nov, [facility] [address], [place] [address]- 0979 Nov, [facility] [address] [facility] [id number], [place] [address]- 3862 Nov, [facility] [address], [place] [address]- 7288 Aug, [facility] [address], [place] [address]- 0065 Jun, [facility] [address], [place] [address]- 7634 May, [facility] [address], [place] [address]- 3080 Apr, [facility] [address], [place] [address]- 5075 Mar, [facility] [id number], [place] [address]- 3886 May, IMMUNIZATIONS No Known Immunizations SOCIAL HISTORY Never Assessed REASON FOR VISIT Routine Visit PLAN OF CARE Activity Details Follow Up prn Reason: VITAL SIGNS MEDICATIONS Medication Instructions Dosage Frequency Start Date End Date Duration Status Vitamin D3 2000 UNIT Orally Once a day 1 capsule 24h Active Melatonin 3 MG Orally Once a day 1 tablet at bedtime as needed with food 24h Active Simvastatin 40 mg Orally Once a day 1 tablet in the evening 24h 30 days Active Stress B Complex/Zinc by oral route Once a day 1 tablet 24h Active Clopidogrel Bisulfate 75 MG Orally Once a day 1 tablet 24h Active Lactobacillus Orally Once a day 1 tablet 24h Active Metformin HCl 1000 MG TAKE 1 TABLET BY MOUTH TWICE A DAY 30 Active Ferrous Sulfate 325 (65 Fe) MG Orally Once a day 1 tablet 24h Active Gabapentin 400 MG Orally 3 times a day 1 capsule 8h Active Duloxetine HCl 60 mg Orally twice a day 1 capsule 12h Active Latuda 20 MG TAKE 1 TABLET BY MOUTH EVERY DAY 30 Active MiraLax 17 gm/dose Orally twice weekly on fri an friday 17 grams mixed in 8 oz of water or juice Active Test strips Test Strips as directed Dec, Active Glucometer Elite Classic glucometer as directed Dec, Active Exelon 1.5 MG Orally Twice a day 1 capsule with food 12h October, 30 day(s) Active Pristiq 100 MG Orally Once a day 1 tablet 24h Mar, 30 day(s) Active Zoloft 100 MG Orally Once a day 1 tablet 24h Active Tylenol 325 MG Orally every 4 hours 2 tablets as needed 4h Active Tylenol Extra Strength 500 mg Orally every 6 hrs 1-2 tablets as needed 6h Sep, Active Folic Acid 1 MG Orally Once a day 1 tablet 24h Active Ipratropium-Albuterol 0.5-2.5 (3) MG/3ML Inhalation 2 times a day 3 ml 12h Active Aspirin Adult Low Dose 81 MG Orally Once a day 1 tablet 24h Active Actos 30 MG Orally Once a day 1 tablet 24h Apr, 90 days Active RESULTS No Results PROCEDURES Procedure Date Ordered Result Body Site Minor complication (15 mins) May 08, 2017 INSTRUCTIONS MEDICATIONS ADMINISTERED No Known Medications [...]
--- OUTSIDE RECORDS SUMMARY | 2018-05-13 07:41 | XMS REPORT ---
Author Author PRECIOUS BOTELLO [facility] Address [address] [place] [address] Care Team Providers Care Asp Developer Name Role Phone PRECIOUS BOTELLO Unavailable PROBLEMS Type Condition ICD9-CM Code CGX69-QZ Code Onset Dates Condition Status SNOMED Code Problem Status post closed fracture of hip Z87.81 Active 313774572 Problem Dementia in other diseases classified elsewhere without behavioral disturbance F02.80 Active 575790648 Problem Type 2 diabetes mellitus with other circulatory complication, without long-term current use of insulin E11.59 Active 85055592 Problem Panlobular emphysema J43.1 Active 4146250 Problem Enlarged prostate with lower urinary tract symptoms N40.1 Active 459511949677357 Problem Benign prostatic hyperplasia with lower urinary tract symptoms N40.1 Active 146051738 Problem Polydipsia R63.1 Active 87476418 Problem Depression F32.9 Active 37728016 Problem Type 2 diabetes mellitus with hyperglycemia E11.65 Active 724060370911264 Problem HTN (hypertension) I10 Active 30817665 Problem Bipolar disorder, unspecified F31.9 Active 79076895 Problem Acute left-sided low back pain with left-sided sciatica M54.42 Active 358570279 Problem Low back pain, unspecified back pain laterality, with sciatica presence unspecified M54.5 Active 076107919 Problem 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 Active 70252288 Problem Type 2 diabetes mellitus with diabetic polyneuropathy E11.42 Active 587111809 Problem GERD with esophagitis K21.0 Active 007490551 Problem Status post partial amputation of left foot Z89.432 Active 030003744 Problem Hammer toe, unspecified laterality M20.40 Active 041154278 Problem Tinea pedis, unspecified laterality B35.3 Active 2380630 Problem Other Alzheimers disease G30.8 Active 12778092 Problem Peripheral vascular disease due to secondary diabetes E13.51 Active 2533331 Problem Severe pain R52 Active 12910900 ALLERGIES No Information ENCOUNTERS Encounter Location Date Diagnosis [facility] [address] [place] [id number] Sep, Weakness R53.1 ; Panlobular emphysema J43.1 ; Bipolar disorder, unspecified F31.9 ; Benign prostatic hyperplasia with lower urinary tract symptoms N40.1 and Frequency of micturition R35.0 [place] [id number] [place] [id number]- 0663 Sep, [place] [address] [place] [id number] [place] [address] 253169- 5453 Aug, [facility] [address] [place] [id number] Jul, Dementia in other diseases classified elsewhere without behavioral disturbance F02.80 [place] [address] [place] [id number] [place] [id number] Jul, [place] [address] [place] [id number] [place] [address] [id number]- 9122 Jun, Bipolar disorder, unspecified F31.[address] [facility] [address] [id number] Jun, Pneumonia due to infectious organism, unspecified laterality, unspecified part of lung J18.9 [place] [id number] [place] [address] 03805- 0861 Jun, [place] [address] [address] [id number] [place] [address] [id number] Jun, [facility] [address] [place] [id number] Apr, Type 2 diabetes mellitus with other circulatory complication, without long -term current use of insulin E11.59 [place] [address] [address] [id number] [place] [address] 37821- 2546 Apr, [place] [address] [id number] [place] [address] [id number] Feb, [place] [address] [id number] [place] [address] [id number] Feb, [facility] [address] [place] [id number] Feb, Sore throat J02.9 and Polyuria R35.8 [facility] [id number] [address] Jan, Bronchitis J40 [facility] [place] [address] [place] [id number] Dec, Cervicalgia M54.2 [facility] [id number] [place] [address] 18079- 6816 October, Acute left-sided low back pain with left-sided sciatica M54.42 and Cervicalgia M54.2 [place] [id number] [place] [address] 75624- 7256 Sep, Acute left-sided low back pain with left-sided sciatica M54.42 [place] [address] [id number] [place] [address] [id number] Sep, Cervicalgia M54.[address] [facility] [address] [id number] Sep, Cervicalgia M54.2 and Acute left-sided low back pain with left-sided sciatica M54.42 [facility] [id number] [id number] Sep, [facility] [address] [id number] Jul, Type 2 diabetes mellitus with hyperglycemia E11.65 ; Bipolar disorder F31.9 ; 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 ; Peripheral vascular disease due to secondary diabetes E13.51 and Status post partial amputation of left foot Z89.432 [facility] [address] [address] 96[address] Mar, [facility] [address] [address] 8174 Mar, [facility] [id number] [place] [address] 67332- 2707 Mar, [facility] [address] [id number] Mar, Dementia in other diseases classified elsewhere without behavioral disturbance F02.80 ; Polydipsia R63.1 ; HTN (hypertension) I10 ; Hypo- osmolality and hyponatremia E87.1 ; Type 2 diabetes mellitus with other circulatory complication, without long-term current use of insulin E11.59 ; Peripheral vascular disease due to secondary diabetes E13.51 and Bipolar disorder, unspecified F31.9 [place] [address] [address] 2651 Feb, [place] [address] [address] [id number] [place] [address] 09918- 9378 Jan, [place] [address] [id number] [place] [address] 03639- 2709 Jan, [facility] [address] [id number] Jan, Pain of left hip joint M25.552 ; Tobacco abuse Z72.0 and Polydipsia R63.1 [place] [address] [address] Jan, [place] [address] [address]- 7897 Jan, [place] [address] [address] 1496 Dec, [place] [address] [address] 7240 Dec, [facility] [address] [id number] Dec, Status post partial amputation of left foot Z89.432 and Peripheral vascular disease due to secondary diabetes E13.51 [place] [address] [address] 7587 Dec, [place] [address] [address] 8209 Dec, [facility] [address] [address] 0706 Dec, [facility] [address] [address] 6277 Nov, [facility] [address] [address] Nov, [facility] [address] [id number] Nov, Severe pain R52 and Status post closed fracture of hip Z87.81 [facility] [address] [address]- 0564 Nov, [facility] [id number] [place] [address] 91427- 6694 Nov, [facility] [address] [address] 5297 October, Severe pain R52 [facility] [address] [id number] [address] 6812 October, [facility] [id number] [place] [address] 28439- 4238 October, Other Alzheimers disease G30.8 and Dementia in other diseases classified elsewhere without behavioral disturbance F02.80 [facility] [address], [place] [address]- 7394 Sep, [facility] [address], [place] [address]- 0159 Aug, [facility] [address] [id number] Aug, Status post partial amputation of left foot Z89.432 ; 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 and Peripheral vascular disease due to secondary diabetes E13.51 [facility] [address] [address]- 3634 Jun, [facility] [address] [address] [id number] [place] [address] 78577- 3983 Jun, [facility] [address] [id number] Jun, 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 and Status post partial amputation of left foot Z89.432 [facility] [address] [id number] May, Peripheral vascular disease due to secondary diabetes E13.51 ; Status post partial amputation of left foot Z89.432 and 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 [facility] [id number] [place] [address] 52917- 3378 Mar, Gangrene associated with type II diabetes mellitus E11.52 [facility] [address] [place] [id number] [place] [address] 50703- 8011 Mar, [facility] [address] [id number] Mar, [facility] [address] [id number] [place] [address] 26727- 9937 Feb, Nicotine abuse 305.1 [facility] [address] [place] [id number] [place] [address] 88446- 1568 Feb, [facility] [address] [place] [address] [id number] [place] [address] 09315- 3421 Feb, [facility] [address] [place] [id number] [place] [address] 40569- 2476 Jan, [facility] [address] [place] [id number] [place] [address] 08931- 1181 Jan, Diabetes 250.00 ; Peripheral vascular disease 443.9 and Bipolar affective disorder 296.80 [facility] [address] [place] [id number] [place] [address] 08483- 7557 Dec, [facility] [address] [place] [id number] [place] [address] [id number]- 8207 Dec, [facility] [address] [address] [id number] [place] [address] 20841- 5077 Dec, [facility] [address] [address]- 4066 Dec, [facility] [address] [address]- 9817 Dec, Diabetes mellitus without mention of complication, type II or unspecified type, uncontrolled 250.02 and Vertigo 780.4 [facility] [address] [address]- 6476 Nov, [facility] [address] [address]- 4546 October, Follow-up examination V67.9 ; Diabetes mellitus without mention of complication, type II or unspecified type, uncontrolled 250.02 and Upper respiratory infection 465.9 [facility] [address] [address]- 2626 October, [facility] [address], [place] [address]- 0176 Sep, [facility] [address], [place] [address]- 7121 Sep, [facility] [address] [address]- 1870 Aug, [facility] [address], [place] [address]- 8456 Aug, [facility] [address], [place] [address]- 3036 Aug, [facility] [address] [address]- 8846 Jul, [facility] [address], [place] [address]- 8216 Jul, [facility] [address] [address]- 2546 Jul, [facility] [address], [place] [address]- 5602 Jul, [facility] [place] [facility] [address] [id number] [place] [address]- 9559 May, [facility] [place] [facility] [address] [id number] [place] [address]- 7736 May, [facility] [place] [facility] [address] [id number] [place] [address]- 0558 May, [facility] [place] [facility] [address] [id number] [place] [address]- 6690 May, [facility] [place] [facility] [address] [id number] [place] [address]- 8132 Apr, [facility] [place] [facility] [address] [id number] [place] [address]- 9048 Apr, [facility] [place] [facility] [address] [id number] [place] [address]- 7522 Mar, [facility] [place] [facility] [address] [id number] [place] [address]- 7474 Mar, [facility] [place] [facility] [address] [id number] [place] [address]- 1204 Mar, [facility] [place] [facility] [address] [id number], [place] [address]- 5557 Mar, [facility] [place] [facility] [address] [id number], [place] [address]- 2492 29 Feb, 2014 [facility] [place] [facility] [address] [id number] [address]- 7422 29 Feb, 2014 [facility] [place] [facility] [address] [id number] [place] [address]- 1484 23 Feb, 2014 [facility] [place] [facility] [address] [id number] [place] [address]- 1126 23 Feb, 2014 [facility] [place] [facility] [address] [id number] [address]- 1088 22 Feb, 2014 [facility] [place] [facility] [address] [id number], [place] [address]- 9881 22 Sep, 2013 [facility] [place] [facility] [address] [id number] [place] [address] 2546 16 Sep, 2013 [facility] [place] [facility] [address] [id number] [place] [address] 2546 16 Sep, 2013 [facility] [place] [facility] [address] [id number] [place] [address] 2546 16 Sep, 2013 [facility] [place] [facility] [address] [id number] [place] [address]- 2548 16 Sep, 2013 [facility] [place] [facility] [address] [id number] [place] [address]- 4779 16 Sep, 2013 [facility] [place] [facility] [address] [id number] [place] [address]- 6462 16 Sep, 2013 [facility] [place] [facility] [address] [id number] [place] [address]- 0289 11 Sep, 2013 [facility] [place] [facility] [address] [id number] [place] [address]- 2549 11 Sep, 2013 [facility] [place] [facility] [address] [id number] [place] [address]- 9422 10 Sep, 2013 [facility] [place] [facility] [address] [id number] [place] [address]- 6364 10 Sep, 2013 [facility] [place] [facility] [address] [id number] [place] [address]- 2708 07 Sep, 2013 [facility] [place] [facility] [address] [id number], [place] [address]- 2542 04 Sep, 2013 [facility] [place] [facility] [address] [id number] [place] [address]- 2549 04 Sep, 2013 [facility] [place] [facility] [address] [id number] [place] [address]- 0309 02 Sep, 2013 [facility] [place] [facility] [address] [id number] [place] [address]- 0983 02 Sep, 2013 [facility] [place] [facility] [address] [id number] [place] 237[address] Jan, [facility] [place] [facility] [address] [id number] [place] [address]- 4540 Jan, [facility] [place] [facility] [address] [id number] [place] 6694 Jan, [facility] [place] [facility] [address] [id number] [place] [address]- 8424 Jan, [facility] [place] [facility] [address] [id number] [place] [address]- 9980 Nov, [facility] [place] [facility] [address] [id number] [place] [address]- 6159 Nov, [facility] [place] [facility] [address] [id number] [place] [address]- 9076 October, [facility] [place] [facility] [address] [id number] [place] [address]- 9785 October, [facility] [place] [facility] [address] [id number] [place] [address]- 6297 October, [facility] [place] [facility] [address] [id number] [place] [address]- 8858 October, [facility] [place] [facility] [address] [id number] [place] [address]- 3932 October, [facility] [place] [facility] [address] [id number] [place] [address]- 0984 October, [facility] [place] [facility] [address] [id number] [place] 5772 October, [facility] [place] [facility] [address] [id number] [place] 5576 October, [facility] [place] [facility] [address] [id number] [place] [address]- 8401 Sep, [facility] [place] [facility] [address] [id number] [place] [address]- 0070 Sep, [facility] [place] [facility] [address] [id number] [place]- 4348 Sep, [facility] [place] [facility] [address] [id number] [place] [address]- 1839 Sep, [facility] [place] [facility] [address] [facility] [id number] [place] [address]- 3356 Jul, [facility] [place] [facility] [address] [id number] [place] [address]- 7680 Jul, [facility] [place] [facility] [address] [id number] [place] 1299 May, [facility] [place] [facility] [address] [id number] [place] [address]- 4912 May, [facility] [place] [facility] [address] [id number] [place] [address]- 0795 Apr, [facility] [place] [facility] [address] [id number] [place] [address]- 1668 Apr, [facility] [place] [facility] [address] [id number] [place] [address]- 3575 Apr, [facility] [place] [facility] [address] [id number] [place] [address]- 2110 Apr, [facility] [place] [facility] [address] [id number], [place] [address]- 2974 Mar, [facility] [place] [facility] [address] [id number], [place] [address]- 3982 Mar, [facility] [place] [facility] [address] [id number] [place] [address]- 8375 Mar, [facility] [place] [facility] [address] [facility] [id number], [place] [address]- 1988 Mar, [facility] [place] [facility] [address] [facility] [id number], [place] [address]- 4942 Feb, [facility] [place] [facility] [address] [id number] [place] [address]- 7413 Jan, [facility] [address] [id number] [place] [address]- 2016 Jan, [facility] [address] [id number] [place] [address]- 7139 Jan, [facility] [address] [id number] [place] [address]- 8322 Dec, [facility] [address] [id number] [place] [address]- 4167 October, [facility] [address] [id number] [place] [address]- 2378 October, [facility] [address] [id number] [place] [address]- 1616 October, [facility] [address] [id number] [place] [address]- 4767 October, [facility] [address] [id number] [place] [address]- 0751 October, [facility] [address] [id number] [place] [address]- 6384 October, [facility] [address] [id number] [place] [address]- 0869 Sep, [facility] [address] [id number] [place] [address]- 1538 Sep, [facility] [address] [id number] [place] [address]- 3374 Jul, [facility] [address] [id number] [place] [address]- 3944 Jun, [facility] [address] [id number] [place] [address]- 0717 Jun, [facility] [address] [id number] [place] [address]- 8401 Jun, [facility] [place] [facility] [address] [id number] [place] [address]- 1801 May, [facility] [place] [facility] [address] [id number] [place] [address]- 7406 May, [facility] [place] [facility] [address] [id number] [place] [address]- 4921 May, [facility] [place] [facility] [address] [id number] [place] [address]- 6176 May, [facility] [place] [facility] [address] [id number] [place] [address]- 5925 May, [facility] [place] [facility] [address] [id number] [place] [address]- 0586 May, [facility] [place] [facility] [address] [id number] [place] [address]- 3934 Mar, [facility] [place] [facility] [address] [id number] [place] [address]- 8455 Mar, [facility] [place] [facility] [address] [id number] [place] [address]- 9993 Mar, [facility] [place] [facility] [address] [id number] [place] [address]- 3808 Mar, [facility] [place] [facility] [address] [facility] [id number], [place] [address]- 9036 Feb, [facility] [place] [facility] [address] [id number] [address]- 1366 Dec, [facility] [place] [facility] [address] [id number] [place] [address]- 0401 Dec, [facility] [place] [facility] [address] [id number], [place] [address]- 6346 Dec, [facility] [place] [facility] [address] [id number], [place] [address]- 0776 Nov, [facility] [place] [facility] [address] [id number], [place] [address]- 2546 Nov, [facility] [id number] [address]- 2546 Nov, [facility] [id number] [address] Nov, [facility] [address] [id number] [address] Aug, [facility] [id number] [address] Jun, [facility] [address] [id number] [address] May, [facility] [address] [id number] [address] Apr, [facility] [id number] [address] Mar, [facility] [address] [id number] [address] May, IMMUNIZATIONS No Known Immunizations SOCIAL HISTORY Never Assessed REASON FOR VISIT Latuda reduction PLAN OF CARE VITAL SIGNS MEDICATIONS Medication Instructions Dosage Frequency Start Date End Date Duration Status Latuda 20 MG Orally Once a day 1 tablet with food 24h Active RESULTS No Results PROCEDURES No [...]
--- OUTSIDE RECORDS SUMMARY | 2018-05-13 07:42 | XMS REPORT ---
Author Author PRECIOUS BOTELLO [facility] Address [address] [place] [address] Care Team Providers Care Buyer Assistant Name Role Phone PRECIOUS BOTELLO Unavailable PROBLEMS Type Condition ICD9-CM Code YUW73-SK Code Onset Dates Condition Status SNOMED Code Problem Status post closed fracture of hip Z87.81 Active 296948395 Problem Dementia in other diseases classified elsewhere without behavioral disturbance F02.80 Active 862400620 Problem Type 2 diabetes mellitus with other circulatory complication, without long-term current use of insulin E11.59 Active 25189863 Problem Panlobular emphysema J43.1 Active 2607230 Problem Enlarged prostate with lower urinary tract symptoms N40.1 Active 338098530994993 Problem Benign prostatic hyperplasia with lower urinary tract symptoms N40.1 Active 396767387 Problem Polydipsia R63.1 Active 60357090 Problem Depression F32.9 Active 83005097 Problem Type 2 diabetes mellitus with hyperglycemia E11.65 Active 152388222147970 Problem HTN (hypertension) I10 Active 05078663 Problem Bipolar disorder, unspecified F31.9 Active 39762770 Problem Acute left-sided low back pain with left-sided sciatica M54.42 Active 398526022 Problem Low back pain, unspecified back pain laterality, with sciatica presence unspecified M54.5 Active 278621968 Problem 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 Active 99923495 Problem Type 2 diabetes mellitus with diabetic polyneuropathy E11.42 Active 777331436 Problem GERD with esophagitis K21.0 Active 118806724 Problem Status post partial amputation of left foot Z89.432 Active 133821936 Problem Hammer toe, unspecified laterality M20.40 Active 457976460 Problem Tinea pedis, unspecified laterality B35.3 Active 1099693 Problem Other Alzheimers disease G30.8 Active 22200987 Problem Peripheral vascular disease due to secondary diabetes E13.51 Active 7660917 Problem Severe pain R52 Active 07652201 ALLERGIES No Information ENCOUNTERS Encounter Location Date Diagnosis [facility] [address] [place] [id number] Sep, Weakness R53.1 ; Panlobular emphysema J43.1 ; Bipolar disorder, unspecified F31.9 ; Benign prostatic hyperplasia with lower urinary tract symptoms N40.1 and Frequency of micturition R35.0 [place] [address] [place] [id number] Sep, [place] [id number] [place] [address] 425281- 5602 Aug, [facility] [address] [id number] Jul, Dementia in other diseases classified elsewhere without behavioral disturbance F02.80 [place] [id number] [place] [id number] Jul, [place] [id number] [place] [address] [id number] Jun, Bipolar disorder, unspecified F31.[address] [facility] [address] [id number] Jun, Pneumonia due to infectious organism, unspecified laterality, unspecified part of lung J18.9 [place] [address] [place] [address]54- 0463 Jun, [place] [id number] [place] [id number] Jun, [facility] [address] [id number] Apr, Type 2 diabetes mellitus with other circulatory complication, without long -term current use of insulin E11.59 [place] [id number] [place] [address] 31296- 2546 Apr, [place] [id number] [place] [address] [id number] Feb, [place] [id number] [place] [id number] Feb, [facility] [address] [place] [address] Feb, Sore throat J02.9 and Polyuria R35.8 [facility] [id number] [address] Jan, Bronchitis J40 [facility] [address] [place] [address] Dec, Cervicalgia M54.2 [facility] [id number] [place] [address] 76683- 3456 October, Acute left-sided low back pain with left-sided sciatica M54.42 and Cervicalgia M54.2 [place] [address] [place] [address]- 1956 Sep, Acute left-sided low back pain with left-sided sciatica M54.42 [place] [id number] [place] [id number] Sep, Cervicalgia M54.[address] [facility] [address] [id number] Sep, Cervicalgia M54.2 and Acute left-sided low back pain with left-sided sciatica M54.42 [facility] [address] [id number] [address] Sep, [facility] [address] [id number] Jul, Type 2 diabetes mellitus with hyperglycemia E11.65 ; Bipolar disorder F31.9 ; 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 ; Peripheral vascular disease due to secondary diabetes E13.51 and Status post partial amputation of left foot Z89.432 [facility] [address] [address]24 Mar, [facility] [address] [address] 4567 Mar, [facility] [address] [place] [address] 03138- 5797 Mar, [facility] [address] [place] [id number] Mar, Dementia in other diseases classified elsewhere without behavioral disturbance F02.80 ; Polydipsia R63.1 ; HTN (hypertension) I10 ; Hypo- osmolality and hyponatremia E87.1 ; Type 2 diabetes mellitus with other circulatory complication, without long-term current use of insulin E11.59 ; Peripheral vascular disease due to secondary diabetes E13.51 and Bipolar disorder, unspecified F31.9 [place] [address] [address] 6263 Feb, [place] [id number] [place] [address] 09456- 2101 Jan, [place] [id number] [place] [address] 30406- 7987 Jan, [facility] [address] [id number] Jan, Pain of left hip joint M25.552 ; Tobacco abuse Z72.0 and Polydipsia R63.1 [place] [address] [address] 6603 Jan, [place] [address] [address]- 2068 Jan, [place] [address] [address]- 9859 Dec, [place] [address] [address] Dec, [facility] [address] [place] [address] Dec, Status post partial amputation of left foot Z89.432 and Peripheral vascular disease due to secondary diabetes E13.51 [place] [address] [address]- 9319 Dec, [place] [address] [address] 7972 Dec, [facility] [address] [address]- 1041 Dec, [facility] [address] [address]- 7757 Nov, [facility] [address] [address] 3601 Nov, [facility] [address] [place] [id number] Nov, Severe pain R52 and Status post closed fracture of hip Z87.81 [facility] [address] [address]- 4765 Nov, [facility] [address] [place] [address] 02055- 1403 Nov, [facility] [address] [address]- 4685 October, Severe pain R52 [facility] [id number] [address]- 9086 October, [facility] [address] [place] [address] 35373- 4574 October, Other Alzheimers disease G30.8 and Dementia in other diseases classified elsewhere without behavioral disturbance F02.80 [facility] [address] [address]- 0477 Sep, [facility] [address] [address]- 7287 Aug, [facility] [address] [address] Aug, Status post partial amputation of left foot Z89.432 ; 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 and Peripheral vascular disease due to secondary diabetes E13.51 [facility] [address] [address] 9900 Jun, [facility] [id number] [place] [address] 23702- 5255 Jun, [facility] [address] [address] Jun, 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 and Status post partial amputation of left foot Z89.432 [facility] [address] [place] [address] May, Peripheral vascular disease due to secondary diabetes E13.51 ; Status post partial amputation of left foot Z89.432 and 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 [facility] [id number] [place] [address] 45978- 5090 Mar, Gangrene associated with type II diabetes mellitus E11.52 [facility] [id number] [place] [address] 67648- 9653 Mar, [facility] [address] [id number] Mar, [facility] [id number] [place] [address] 18989- 7577 Feb, Nicotine abuse 305.1 [facility] [id number] [place] [address] 36494- 2743 Feb, [facility] [id number] [place] [address] 41026- 4321 Feb, [facility] [id number] [place] [address] 26316- 0774 Jan, [facility] [address] [place] [address] 31237- 0781 Jan, Diabetes 250.00 ; Peripheral vascular disease 443.9 and Bipolar affective disorder 296.80 [facility] [id number] [place] [address] 93729- 1860 Dec, [facility] [id number] [place] [address] 11351258- 0094 Dec, [facility] [id number] [place] [address] 62451- 3113 Dec, [facility] [address] [address]- 4786 Dec, [facility] [address] [address]- 0611 Dec, Diabetes mellitus without mention of complication, type II or unspecified type, uncontrolled 250.02 and Vertigo 780.4 [facility] [address] [address]- 7866 Nov, [facility] [address] [address]- 0366 October, Follow-up examination V67.9 ; Diabetes mellitus without mention of complication, type II or unspecified type, uncontrolled 250.02 and Upper respiratory infection 465.9 [facility] [address] [address]- 0996 October, [facility] [address] [address]- 6946 Sep, [facility] [address] [address]- 6823 Sep, [facility] [address] [address]- 2064 Aug, [facility] [address] [address]- 5036 Aug, [facility] [address], [place] [address]- 7446 Aug, [facility] [address], [place] [address]- 1586 Jul, [facility] [address], [place] [address]- 3676 Jul, [facility] [address], [place] [address]- 2546 Jul, [facility] [address], [place] [address]- 1630 Jul, [facility] [place] [facility] [address] [id number] [place] [address]- 2082 May, [facility] [place] [facility] [address] [id number] [place] [address]- 6116 May, [facility] [place] [facility] [address] [id number] [place] [address]- 9929 May, [facility] [place] [facility] [address] [id number] [place] [address]- 1392 May, [facility] [place] [facility] [address] [id number] [place] [address]- 9035 Apr, [facility] [place] [facility] [address] [id number] [place] [address]- 3006 Apr, [facility] [place] [facility] [address] [id number] [place] [address]- 4665 Mar, [facility] [place] [facility] [address] [id number] [place] [address]- 1257 Mar, [facility] [place] [facility] [address] [id number] [place] [address]- 6730 Mar, [facility] [place] [facility] [address] [id number], [place] [address]- 4770 Mar, [facility] [place] [facility] [address] [id number], [place] [address]- 6852 29 Feb, 2014 [facility] [place] [facility] [address] [id number], [place] [address]- 7652 29 Feb, 2014 [facility] [place] [facility] [address] [id number] [place] [address]- 0187 23 Feb, 2014 [facility] [place] [facility] [address] [id number] [place] [address]- 5512 23 Feb, 2014 [facility] [place] [facility] [address] [id number], [place] [address]- 1329 22 Feb, 2014 [facility] [place] [facility] [address] [id number], [place] [address]- 7239 22 Sep, 2013 [facility] [place] [facility] [address] [id number] [place] [address] 2546 16 Sep, 2013 [facility] [place] [facility] [address] [id number] [place] [address] 2546 16 Sep, 2013 [facility] [place] [facility] [address] [id number] [place] [address] 2546 16 Sep, 2013 [facility] [place] [facility] [address] [id number] [place] [address]- 254 16 Sep, 2013 [facility] [place] [facility] [address] [id number] [place] [address]- 8674 16 Sep, 2013 [facility] [place] [facility] [address] [id number] [place] [address]- 9212 16 Sep, 2013 [facility] [place] [facility] [address] [id number] [place] [address]- 3964 11 Sep, 2013 [facility] [place] [facility] [address] [id number] [place] [address]- 2540 11 Sep, 2013 [facility] [place] [facility] [address] [id number] [place] [address]- 1882 10 Sep, 2013 [facility] [place] [facility] [address] [id number] [place] [address]- 1198 10 Sep, 2013 [facility] [place] [facility] [address] [id number] [place] [address]- 4038 07 Sep, 2013 [facility] [place] [facility] [address] [id number], [place] [address]- 2545 04 Sep, 2013 [facility] [place] [facility] [address] [id number] [place] [address]- 2547 04 Sep, 2013 [facility] [place] [facility] [address] [id number] [place] [address]- 8290 02 Sep, 2013 [facility] [place] [facility] [address] [id number] [place] [address]- 8800 02 Sep, 2013 [facility] [place] [facility] [address] [id number] [place] [address]505 Jan, [facility] [place] [facility] [address] [id number] [place] [address]- 0290 Jan, [facility] [place] [facility] [address] [id number] [place] 5697 Jan, [facility] [place] [facility] [address] [id number] [place] [address]- 5770 Jan, [facility] [place] [facility] [address] [id number] [place] [address]- 4749 Nov, [facility] [place] [facility] [address] [id number] [place] [address]- 3912 Nov, [facility] [place] [facility] [address] [id number] [place] [address]- 8874 October, [facility] [place] [facility] [address] [id number] [place] [address]- 9101 October, [facility] [place] [facility] [address] [id number] [place] [address]- 1536 October, [facility] [place] [facility] [address] [id number] [place] [address]- 8431 October, [facility] [place] [facility] [address] [id number] [place] [address]- 2185 October, [facility] [place] [facility] [address] [id number] [place] [address]- 6830 October, [facility] [place] [facility] [address] [id number] [place] 5509 October, [facility] [place] [facility] [address] [id number] [place] 3572 October, [facility] [place] [facility] [address] [id number] [place] [address]- 7513 Sep, [facility] [place] [facility] [address] [id number] [place] [address]- 3851 Sep, [facility] [place] [facility] [address] [id number] [place] 0211 Sep, [facility] [place] [facility] [address] [id number] [place] [address]- 5849 Sep, [facility] [place] [facility] [address] [facility] [id number] [place] [address]- 3541 Jul, [facility] [place] [facility] [address] [id number] [place] [address]- 3503 Jul, [facility] [place] [facility] [address] [id number] [place] 1967 May, [facility] [place] [facility] [address] [id number] [place] [address]- 9118 May, [facility] [place] [facility] [address] [id number] [place] [address]- 2487 Apr, [facility] [place] [facility] [address] [id number] [place] [address]- 6655 Apr, [facility] [place] [facility] [address] [id number] [place] [address]- 3289 Apr, [facility] [place] [facility] [address] [id number] [place] [address]- 4176 Apr, [facility] [place] [facility] [address] [id number], [place] [address]- 1398 Mar, [facility] [place] [facility] [address] [id number], [place] [address]- 6155 Mar, [facility] [place] [facility] [address] [id number] [place] [address]- 2665 Mar, [facility] [place] [facility] [address] [facility] [id number], [place] [address]- 1222 Mar, [facility] [place] [facility] [address] [facility] [id number], [place] [address]- 5443 Feb, [facility] [place] [facility] [address] [id number] [place] [address]- 8167 Jan, [facility] [address] [id number] [place] [address]- 9844 Jan, [facility] [address] [id number] [place] [address]- 4335 Jan, [facility] [address] [id number] [place] [address]- 4866 Dec, [facility] [address] [id number] [place] [address]- 2888 October, [facility] [address] [id number] [place] [address]- 9988 October, [facility] [address] [id number] [place] [address]- 6776 October, [facility] [address] [id number] [place] [address]- 9420 October, [facility] [address] [id number] [place] [address]- 3742 October, [facility] [address] [id number] [place] [address]- 3226 October, [facility] [address] [id number] [place] [address]- 9709 Sep, [facility] [address] [id number] [place] [address]- 9638 Sep, [facility] [address] [id number] [place] [address]- 4331 Jul, [facility] [address] [id number] [place] [address]- 0703 Jun, [facility] [address] [id number] [place] [address]- 2670 Jun, [facility] [address] [id number] [place] [address]- 7776 Jun, [facility] [place] [facility] [address] [id number] [place] [address]- 8515 May, [facility] [place] [facility] [address] [id number] [place] [address]- 1346 May, [facility] [place] [facility] [address] [id number] [place] [address]- 2171 May, [facility] [place] [facility] [address] [id number] [place] [address]- 8406 May, [facility] [place] [facility] [address] [id number] [place] [address]- 6192 May, [facility] [place] [facility] [address] [id number] [place] [address]- 1516 May, [facility] [place] [facility] [address] [id number] [place] [address]- 3661 Mar, [facility] [place] [facility] [address] [id number] [place] [address]- 0526 Mar, [facility] [place] [facility] [address] [id number] [place] [address]- 2393 Mar, [facility] [place] [facility] [address] [id number] [place] [address]- 9022 Mar, [facility] [place] [facility] [address] [facility] [id number], [place] [address]- 0036 Feb, [facility] [place] [facility] [address] [id number], [place] [address]- 6026 Dec, [facility] [place] [facility] [address] [id number] [place] [address]- 8043 Dec, [facility] [place] [facility] [address] [id number], [place] [address]- 6176 Dec, [facility] [place] [facility] [address] [id number], [place] [address]- 4576 Nov, [facility] [place] [facility] [address] [id number], [place] [address]- 2546 Nov, [facility] [address] [id number], [place] [address]- 7516 Nov, [facility] [address] [id number], [place] [address]- 4216 Nov, [facility] [address] [id number], [place] [address]- 2546 Aug, [facility] [address], [place] [address]- 2546 Jun, [facility] [address], [place] [address]- 3496 May, [facility] [address], [place] [address]- 2546 Apr, [facility] [address] [id number], [place] [address]- 2066 Mar, [facility] [id number], [place] [address]- 2546 May, IMMUNIZATIONS No Known Immunizations SOCIAL HISTORY Never Assessed REASON FOR VISIT Residents complaints PLAN OF CARE VITAL SIGNS MEDICATIONS Medication Instructions Dosage Frequency Start Date End Date Duration Status Gabapentin 400 MG Orally 3 times a day 1 capsule 8h Active RESULTS No Results PROCEDURES No Known [...]
--- OUTSIDE RECORDS SUMMARY | 2018-05-13 07:43 | XMS REPORT ---
Author Author PRECIOUS BOTELLO [facility] [address] Address [address] [place] [address] Care Team Providers Care Park Guard Name Role Phone PRECIOUS BOTELLO Unavailable PROBLEMS Type Condition ICD9-CM Code VEO05-KO Code Onset Dates Condition Status SNOMED Code Problem Status post closed fracture of hip Z87.81 Active 041891657 Problem Dementia in other diseases classified elsewhere without behavioral disturbance F02.80 Active 627010863 Problem Type 2 diabetes mellitus with other circulatory complication, without long-term current use of insulin E11.59 Active 98562721 Problem Panlobular emphysema J43.1 Active 6639750 Problem Enlarged prostate with lower urinary tract symptoms N40.1 Active 087017776124498 Problem Benign prostatic hyperplasia with lower urinary tract symptoms N40.1 Active 318917379 Problem Polydipsia R63.1 Active 26391072 Problem Depression F32.9 Active 51514478 Problem Type 2 diabetes mellitus with hyperglycemia E11.65 Active 082461845253598 Problem HTN (hypertension) I10 Active 82911858 Problem Bipolar disorder, unspecified F31.9 Active 71897287 Problem Acute left-sided low back pain with left-sided sciatica M54.42 Active 312051823 Problem Low back pain, unspecified back pain laterality, with sciatica presence unspecified M54.5 Active 708147135 Problem 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 Active 84457084 Problem Type 2 diabetes mellitus with diabetic polyneuropathy E11.42 Active 490573274 Problem GERD with esophagitis K21.0 Active 502880539 Problem Status post partial amputation of left foot Z89.432 Active 740876198 Problem Hammer toe, unspecified laterality M20.40 Active 937319724 Problem Tinea pedis, unspecified laterality B35.3 Active 7571417 Problem Other Alzheimers disease G30.8 Active 46557287 Problem Peripheral vascular disease due to secondary diabetes E13.51 Active 0641295 Problem Severe pain R52 Active 89338125 ALLERGIES No Information ENCOUNTERS Encounter Location Date Diagnosis [facility] [address] [id number] October, Arthralgia, unspecified joint M25.[address] [facility] [address] [id number] Sep, Weakness R53.1 ; Panlobular emphysema J43.1 ; Bipolar disorder, unspecified F31.9 ; Benign prostatic hyperplasia with lower urinary tract symptoms N40.1 and Frequency of micturition R35.0 [place] [address] [place] [address]47- 5209 Sep, [place] [address] [place] [id number] [place] [address] [id number]- 3033 Aug, [facility] [id number] Jul, Dementia in other diseases classified elsewhere without behavioral disturbance F02.80 [place] [address] [id number] [place] [address] [id number] Jul, [place] [address] [id number] [place] [address] 55495- 8667 Jun, Bipolar disorder, unspecified F31.[address] [facility] [address] [id number] Jun, Pneumonia due to infectious organism, unspecified laterality, unspecified part of lung J18.9 [place] [address] [address] Jun, [place] [id number] [place] [address] [id number] Jun, [facility] [id number] Apr, Type 2 diabetes mellitus with other circulatory complication, without long -term current use of insulin E11.59 [place] [address] [place] [address] [id number] 8018 07 Apr, 2017 [facility] [id number] [id number] Feb, [facility] [id number] [id number] Feb, [facility] [address] [id number] Feb, Sore throat J02.9 and Polyuria R35.8 [facility] [id number] [id number] Jan, Bronchitis J40 [facility] [address] [id number] Dec, Cervicalgia M54.2 [place] [address] [id number] [place] [address] 99180- 5469 October, Acute left-sided low back pain with left-sided sciatica M54.42 and Cervicalgia M54.2 [place] [address] [id number] [place] [address] 96290- 4965 Sep, Acute left-sided low back pain with left-sided sciatica M54.42 [place] [address] [address] [id number] [place] [address] [id number] Sep, Cervicalgia M54.[address] [facility] [id number] Sep, Cervicalgia M54.2 and Acute left-sided low back pain with left-sided sciatica M54.42 [facility] [address] [place] [address] [id number] [place] [address] [id number] Sep, [facility] [id number] Jul, Type 2 diabetes mellitus with hyperglycemia E11.65 ; Bipolar disorder F31.9 ; 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 ; Peripheral vascular disease due to secondary diabetes E13.51 and Status post partial amputation of left foot Z89.432 [facility] [address] [place] [address] [id number] 5201 Mar, [facility] [id number] [place] [address] 52575- 8408 14 Mar, 2016 [place] [address] [address] Mar, [facility] [address] [id number] Mar, Dementia in other diseases classified elsewhere without behavioral disturbance F02.80 ; Polydipsia R63.1 ; HTN (hypertension) I10 ; Hypo- osmolality and hyponatremia E87.1 ; Type 2 diabetes mellitus with other circulatory complication, without long-term current use of insulin E11.59 ; Peripheral vascular disease due to secondary diabetes E13.51 and Bipolar disorder, unspecified F31.9 [place] [address] [place] [address] 89044- 1520 Feb, [place] [address] [address] [id number] [address]- 6847 Jan, [place] [id number] [place] [address] 55889- 6193 Jan, [facility] [place] [address] [place] [id number] Jan, Pain of left hip joint M25.552 ; Tobacco abuse Z72.0 and Polydipsia R63.1 [place] [address]005[address]100[place] [address]- 0886 Jan, [place] [address]100[place] [address]- 2604 Jan, [place] [address] [place] [address] 12582- 5004 Dec, [place] [address] [address] 5027 Dec, [facility] [address] [id number] Dec, Status post partial amputation of left foot Z89.432 and Peripheral vascular disease due to secondary diabetes E13.51 [address] [place] [address] 60291- 3049 Dec, [facility] [address] [address]- 6317 Dec, [facility] [address] [address]- 1366 Dec, [facility] [address] [address]- 9911 Nov, [facility] [address] [address]- 4583 Nov, [facility] [address] [place] [id number] Nov, Severe pain R52 and Status post closed fracture of hip Z87.81 [facility] [address] [address] Nov, [facility] [address] [address]- 4967 Nov, [facility] [address] [address]- 0780 October, Severe pain R52 [facility] [address] [address]- 0436 October, [facility] [address] [address]- 6628 October, Other Alzheimers disease G30.8 and Dementia in other diseases classified elsewhere without behavioral disturbance F02.80 [facility] [address] [address]- 6179 Sep, [facility] [address] [address]- 8669 Aug, [facility] [address] [id number] Aug, Status post partial amputation of left foot Z89.432 ; 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 and Peripheral vascular disease due to secondary diabetes E13.51 [facility] [address] [address]- 7747 Jun, [facility] [address] [address]- 4664 Jun, [facility] [address] [id number] Jun, 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 and Status post partial amputation of left foot Z89.432 [facility] [place] [address] [place] [id number] May, Peripheral vascular disease due to secondary diabetes E13.51 ; Status post partial amputation of left foot Z89.432 and 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 [facility] [address] [place] [address] 97842- 8056 Mar, Gangrene associated with type II diabetes mellitus E11.52 [facility] [address] [address]- 5336 Mar, [facility] [address] [id number] Mar, [facility] [address] [place] [address] 39001- 3407 Feb, Nicotine abuse 305.1 [facility] [address] [place] [id number] [place] [address] 66388- 3821 Feb, [facility] [address] [address]- 2975 Feb, [facility] [address] [place] [address] 77503- 1024 Jan, [facility] [address] [address]- 9176 Jan, Diabetes 250.00 ; Peripheral vascular disease 443.9 and Bipolar affective disorder 296.80 [facility] [address] [address]- 7790 Dec, [facility] [address] [address] [id number] [place] [address] 15136- 1423 Dec, [facility] [address] [address]- 1946 Dec, [facility] [address] [place] [address]- 6646 Dec, [facility] [address]100[facility] [place] [address]- 2476 Dec, Diabetes mellitus without mention of complication, type II or unspecified type, uncontrolled 250.02 and Vertigo 780.4 [facility] [address] [place] [address]- 3976 Nov, [facility] [address] [address]- 5226 October, Follow-up examination V67.9 ; Diabetes mellitus without mention of complication, type II or unspecified type, uncontrolled 250.02 and Upper respiratory infection 465.9 [facility] [address] [place] [address]- 5346 October, [facility] [address] [address]- 8321 Sep, [facility] [address] [place] [address]- 4196 Sep, [facility] [address] [address]- 5496 Aug, [facility] [address] [place] [address]- 2546 Aug, [facility] [address] [place] [id number] [address]- 2546 Aug, [facility] [address] [place] [address]- 2546 Jul, [facility] [id number] [address]- 2546 Jul, [facility] [address] [id number] [address] 2540 Jul, [facility] [place] [facility] [address] [id number] [place] [address]- 1905 Jul, [facility] [place] [facility] [address] [id number] [place] [address]- 5623 May, [facility] [place] [facility] [address] [id number] [place] [address]- 1712 May, [facility] [place] [facility] [address] [id number] [place] [address]- 1221 May, [facility] [place] [facility] [address] [id number] [place] [address]- 0047 May, [facility] [place] [facility] [address] [id number] [place] [address]- 2571 Apr, [facility] [place] [facility] [address] [id number] [place] [address]- 0667 Apr, [facility] [place] [facility] [address] [id number] [place] [address]- 8337 Mar, [facility] [place] [facility] [address] [id number] [place] [address]- 0483 Mar, [facility] [place] [facility] [address] [id number] [place] [address]- 7770 Mar, [facility] [place] [facility] [address] [id number] [address]- 5880 Mar, [facility] [place] [facility] [address] [id number] [address]- 0548 Feb, [facility] [place] [facility] [address] [id number] [place] [address]- 0476 29 Feb, 2014 [facility] [place] [facility] [address] [id number] [address]- 3519 Feb, [facility] [place] [facility] [address] [id number] [place] [address]- 3722 Feb, [facility] [place] [facility] [address] [id number] [place] [address] 2546 22 Sep, 2013 [facility] [place] [facility] [address] [id number] [place] [address] 2546 22 Sep, 2013 [facility] [place] [facility] [address] [id number] [place] [address] 2546 16 Sep, 2013 [facility] [place] [facility] [address] [id number] [place] [address] 2546 16 Sep, 2013 [facility] [place] [facility] [address] [id number] [place] [address] 2546 16 Sep, 2013 [facility] [place] [facility] [address] [id number] [place] [address] 2546 16 Sep, 2013 [facility] [place] [facility] [address] [id number] [place] [address] 2544 16 Sep, 2013 [facility] [place] [facility] [address] [id number] [place] [address] 2543 16 Sep, 2013 [facility] [place] [facility] [address] [id number] [place] [address] 2549 11 Sep, 2013 [facility] [place] [facility] [address] [id number] [place] [address] 2546 11 Sep, 2013 [facility] [place] [facility] [address] [id number] [place] [address] 2540 10 Sep, 2013 [facility] [place] [facility] [address] [id number] [place] [address] 2546 10 Sep, 2013 [facility] [place] [facility] [address] [id number] [place] [address]- 2549 07 Sep, 2013 [facility] [place] [facility] [address] [id number] [place] [address] 2541 04 Sep, 2013 [facility] [place] [facility] [address] [id number] [place] [address] 2541 04 Sep, 2013 [facility] [place] [facility] [address] [id number] [place] [address] 2543 Feb, [facility] [place] [facility] [address] [id number] [place] [address]- 5100 Feb, [facility] [place] [facility] [address] [id number] [place] [address]- 8362 Jan, [facility] [place] [facility] [address] [id number] [place] [address]- 4574 Jan, [facility] [place] [facility] [address] [id number] [place] [address]- 6552 Jan, [facility] [place] [facility] [address] [id number] [place] [address]- 2949 Jan, [facility] [place] [facility] [address] [id number] [place] [address]- 5301 Nov, [facility] [place] [facility] [address] [id number] [place] [address]- 0993 Nov, [facility] [place] [facility] [address] [id number] [place] [address]- 6338 October, [facility] [place] [facility] [address] [id number] [place] [address]- 4819 October, [facility] [place] [facility] [address] [id number] [place] [address]- 4321 October, [facility] [place] [facility] [address] [id number] [place] [address]- 9727 October, [facility] [place] [facility] [address] [id number] [place] [address]- 8614 October, [facility] [place] [facility] [address] [id number] [place] [address]- 8123 October, [facility] [place] [facility] [address] [id number] [place] [address]- 9087 October, [facility] [place] [facility] [address] [id number] [place] [address]- 6537 October, [facility] [place] [facility] [address] [id number] [address]- 2924 Sep, [facility] [place] [facility] [address] [id number] [place] [address]- 1622 Sep, [facility] [place] [facility] [address] [id number] [place] [address]- 5791 Sep, [facility] [place] [facility] [address] [facility] [id number] [place] [address]- 9135 Sep, [facility] [place] [facility] [address] [id number] [place] [address]- 1444 Jul, [facility] [place] [facility] [address] [id number] [place] [address]- 3807 Jul, [facility] [place] [facility] [address] [facility] [id number] [place] [address]- 7598 May, [facility] [place] [facility] [address] [facility] [id number] [place] [address]- 5041 May, [facility] [place] [facility] [address] [facility] [id number] [place] [address]- 3098 Apr, [facility] [place] [facility] [address] [facility] [id number] [place] [address]- 4305 Apr, [facility] [place] [facility] [address] [facility] [id number] [place] [address]- 5662 Apr, [facility] [place] [facility] [address] [facility] [id number][place] [address]- 9727 Apr, [facility] [place] [facility] [address] [facility] [id number][place] [address]- 4554 Mar, [facility] [place] [facility] [address] [id number] [place] [address]- 8462 Mar, [facility] [place] [facility] [address] [facility] [id number] [place] [address]- 6117 Mar, [facility] [place] [facility] [address] [facility] [id number] 0669 Mar, [facility] [place] [facility] [address] [id number] [place] [address]- 2546 Feb, [facility] [address] [id number] [place] [address]- 6584 Jan, [facility] [place] [facility] [address] [id number] [place] [address]- 6736 Jan, [facility] [address] [id number] [place] [address]- 7116 Jan, [facility] [address] [id number] [place] [address]- 0124 Dec, [facility] [address] [id number] [place] [address]- 8386 October, [facility] [address] [id number] [place] [address]- 0270 October, [facility] [address] [id number] [place] [address]- 4846 October, [facility] [address] [id number] [place] [address]- 7020 October, [facility] [address] [id number] [place] [address]- 2086 October, [facility] [address] [id number] [place] [address]- 3376 October, [facility] [address] [id number] [place] [address]- 3024 Sep, [facility] [place] [facility] [address] [id number] [place] [address]- 2547 Sep, [facility] [place] [facility] [address] [id number] [place] [address]- 5696 Jul, [facility] [place] [facility] [address] [id number] [place] [address]- 2546 Jun, [facility] [place] [facility] [address] [id number] [place] [address]- 3343 Jun, [facility] [place] [facility] [address] [id number] [place] [address]- 9778 Jun, [facility] [place] [facility] [address] [id number] [place] [address]- 5577 May, [facility] [place] [facility] [address] [id number] [place] [address]- 6657 May, [facility] [place] [facility] [address] [id number] [place] 8934 May, [facility] [place] [facility] [address] [id number] [place] 7460 May, [facility] [place] [facility] [address] [id number] [place] 7601 May, [facility] [place] [facility] [address] [id number] [place] [address]- 7366 May, [facility] [place] [facility] [address] [id number] [place] [address]- 7797 Mar, [facility] [place] [facility] [address] [id number] [place] [address]- 9269 Mar, [facility] [place] [facility] [address] [id number] [place] [address]- 9014 Mar, [facility] [place] [facility] [address] [id number][place] [address]- 1750 Mar, [facility] [place] [facility] [address] [id number][place] [address]- 0542 Feb, [facility] [place] [facility] [address] [id number] [place] [address]- 7733 Dec, [facility] [place] [facility] [address] [id number][place] [address]- 7926 Dec, [facility] [place] [facility] [address] [id number] [place] [address]- 2546 Dec, [facility] [place] [facility] [id number] [address]- 9116 28 Nov, 2011 [facility] [address] [id number] [address]- 5293 27 Nov, 2011 [facility] [address] [id number] [address]- 4450 Nov, [facility] [address] [id number] [address]- 0406 Nov, [facility] [address] [address]- 7790 Aug, [facility] [address] [address]- 3696 Jun, [facility] [address] [address]- 3113 May, [facility] [address] [address]- 7940 Apr, [facility] [address] [id number] [address]- 8935 Mar, [facility] [address] [id number] [address]- 3295 May, IMMUNIZATIONS No Known Immunizations SOCIAL HISTORY Never Assessed REASON FOR VISIT stop Levemir and start Actos PLAN OF CARE VITAL SIGNS MEDICATIONS Medication Instructions Dosage Frequency Start Date End Date Duration Status Actos 30 MG Orally Once a day 1 tablet 24h Apr, 90 days Active RESULTS No Results PROCEDURES No [...]
--- OUTSIDE RECORDS SUMMARY | 2018-05-13 07:43 | XMS REPORT ---
Author Author SABINA CHOE [facility] Address [address] [place] [address] Care Team Providers Care Recreational Counselor Name Role Phone SABINA CHOE Unavailable PROBLEMS Type Condition ICD9-CM Code ICN30-NO Code Onset Dates Condition Status SNOMED Code Problem Status post closed fracture of hip Z87.81 Active 239225882 Problem Dementia in other diseases classified elsewhere without behavioral disturbance F02.80 Active 720897432 Problem Type 2 diabetes mellitus with other circulatory complication, without long-term current use of insulin E11.59 Active 74571575 Problem Panlobular emphysema J43.1 Active 0284783 Problem Enlarged prostate with lower urinary tract symptoms N40.1 Active 323154592534221 Problem Benign prostatic hyperplasia with lower urinary tract symptoms N40.1 Active 727646263 Problem Polydipsia R63.1 Active 22295317 Problem Depression F32.9 Active 84363770 Problem Type 2 diabetes mellitus with hyperglycemia E11.65 Active 787546286949602 Problem HTN (hypertension) I10 Active 57410010 Problem Bipolar disorder, unspecified F31.9 Active 91017356 Problem Acute left-sided low back pain with left-sided sciatica M54.42 Active 787594564 Problem Low back pain, unspecified back pain laterality, with sciatica presence unspecified M54.5 Active 970887520 Problem 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 Active 04273208 Problem Type 2 diabetes mellitus with diabetic polyneuropathy E11.42 Active 874818702 Problem GERD with esophagitis K21.0 Active 871890447 Problem Status post partial amputation of left foot Z89.432 Active 695843805 Problem Hammer toe, unspecified laterality M20.40 Active 503196970 Problem Tinea pedis, unspecified laterality B35.3 Active 3558600 Problem Other Alzheimers disease G30.8 Active 87684986 Problem Peripheral vascular disease due to secondary diabetes E13.51 Active 5118005 Problem Severe pain R52 Active 94399025 ALLERGIES No Information ENCOUNTERS Encounter Location Date Diagnosis [facility] [address] [place] [id number] Sep, Weakness R53.1 ; Panlobular emphysema J43.1 ; Bipolar disorder, unspecified F31.9 ; Benign prostatic hyperplasia with lower urinary tract symptoms N40.1 and Frequency of micturition R35.0 [place] [id number] [place] [address] [id number]- 2194 Sep, [place] [address] [place] [id number] [place] [address] 601805- 1819 Aug, [facility] [address] [place] [id number] Jul, Dementia in other diseases classified elsewhere without behavioral disturbance F02.80 [place] [address] [id number] [place] [address] [id number] Jul, [place] [address] [id number] [place] [address] [id number]- 0691 Jun, Bipolar disorder, unspecified F31.[address] [facility] [address] [id number] Jun, Pneumonia due to infectious organism, unspecified laterality, unspecified part of lung J18.9 [place] [id number] [place] [address] 14080- 7267 Jun, [place] [id number] [place] [address] [id number] Jun, [facility] [address] [place] [id number] Apr, Type 2 diabetes mellitus with other circulatory complication, without long -term current use of insulin E11.59 [place] [address] [id number] [place] [address] 96158- 2546 Apr, [place] [id number] [place] [address] [id number] Feb, [place] [id number] [place] [address] [id number] Feb, [facility] [address] [id number] Feb, Sore throat J02.9 and Polyuria R35.8 [facility] [place] [id number] [id number] Jan, Bronchitis J40 [facility] [place] [facility] [address] [place] [id number] Dec, Cervicalgia M54.2 [facility] [id number] [place] [address] 10769- 9876 October, Acute left-sided low back pain with left-sided sciatica M54.42 and Cervicalgia M54.2 [place] [address] [place] [address] 66018- 4546 Sep, Acute left-sided low back pain with left-sided sciatica M54.42 [place] [id number] [place] [address] [id number] Sep, Cervicalgia M54.[address] [facility] [address] [id number] Sep, Cervicalgia M54.2 and Acute left-sided low back pain with left-sided sciatica M54.42 [facility] [place] [id number] [address] Sep, [facility] [address] [id number] Jul, Type 2 diabetes mellitus with hyperglycemia E11.65 ; Bipolar disorder F31.9 ; 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 [address], [place] [address] Mar, [facility] [address] [address] 0172 Mar, [facility] [address] [place] [address] 03353- 3498 Mar, [facility] [address] [id number] Mar, Dementia in other diseases classified elsewhere without behavioral disturbance F02.80 ; Polydipsia R63.1 ; HTN (hypertension) I10 ; Hypo- osmolality and hyponatremia E87.1 ; Type 2 diabetes mellitus with other circulatory complication, without long-term current use of insulin E11.59 ; Peripheral vascular disease due to secondary diabetes E13.51 and Bipolar disorder, unspecified F31.9 [place] [address], [place] [address]- 3142 Feb, [place] [address] [id number] [place] [address] 36603- 9345 Jan, [place] [address] [address] [id number] [place] [address] 04391- 7607 Jan, [facility] [address] [id number] Jan, Pain of left hip joint M25.552 ; Tobacco abuse Z72.0 and Polydipsia R63.1 [place] [address], [place] [address]- 2307 Jan, [place] [address], [place] [address]- 4584 Jan, [place] [address], [place] [address]- 3036 Dec, [place] [address], [place] [address]- 0821 Dec, [facility] [address] [address] Dec, Status post partial amputation of left foot Z89.432 and Peripheral vascular disease due to secondary diabetes E13.51 [place] [address], [place] [address]- 1126 Dec, [place] [address], [place] [address] 3333 Dec, [facility] [address], [place] [address] 2285 Dec, [facility] [address], [place] [address] 4031 Nov, [facility] [address], [place] [address]- 8335 Nov, [facility] [address] [id number] Nov, Severe pain R52 and Status post closed fracture of hip Z87.81 [facility] [address], [place] [address]- 0566 Nov, [facility] [address] [place] [address] 38528- 8124 Nov, [facility] [address], [place] [address]- 1567 October, Severe pain R52 [facility] [id number] [address] 4481 October, [facility] [address] [place] [address] 52023- 3890 October, Other Alzheimers disease G30.8 and Dementia in other diseases classified elsewhere without behavioral disturbance F02.80 [facility] [address], [place] [address]- 1040 Sep, 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 [address], [place] [address]- 1532 Jun, 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 [id number] [place] [address] 17631- 7926 Mar, Gangrene associated with type II diabetes mellitus E11.52 [facility] [address] [id number] [place] [address] 87489- 5072 Mar, [facility] [address] [address] Mar, [facility] [id number] [place] [address] 43377- 5393 Feb, Nicotine abuse 305.1 [facility] [address] [id number] [place] [address] 92707- 2144 Feb, [facility] [id number] [place] [address] 84671- 3333 Feb, [facility] [id number] [place] [address] 44261- 8913 Jan, [facility] [id number] [place] [address] 92588- 4763 Jan, Diabetes 250.00 ; Peripheral vascular disease 443.9 and Bipolar affective disorder 296.80 [facility] [address] [address] [id number] [place] [address] 13185- 7660 Dec, [facility] [id number] [place] [address] 83343109- 5997 Dec, [facility] [id number] [place] [address] 06232- 6100 Dec, [facility] [address], [place] [address]- 3026 Dec, [facility] [address], [place] [address]- 6938 Dec, Diabetes mellitus without mention of complication, type II or unspecified type, uncontrolled 250.[address] [facility] [address], [place] [address]- 7206 Nov, [facility] [address], [place] [address]- 8456 October, Follow-up examination V67.9 ; Diabetes mellitus without mention of complication, type II or unspecified type, uncontrolled 250.02 and Upper respiratory infection 465.9 [facility] [address], [place] [address]- 7486 October, [facility] [address] [address] 8606 Sep, [facility] [address] [address]- 5569 Sep, [facility] [address] [address]- 0367 Aug, [facility] [address] [address]- 7176 Aug, [facility] [address] [address]- 3356 Aug, [facility] [address], [place] [address]- 5676 Jul, [facility] [address], [place] [address]- 9866 Jul, [facility] [address], [place] [address]- 2546 Jul, [facility] [address], [place] [address]- 7539 Jul, [facility] [place] [facility] [address] [id number] [place] [address]- 8822 May, [facility] [place] [facility] [address] [id number] [place] [address]- 5136 May, [facility] [place] [facility] [address] [id number] [place] [address]- 3347 May, [facility] [place] [facility] [address] [id number] [place] [address]- 4097 May, [facility] [place] [facility] [address] [id number] [place] [address]- 2800 Apr, [facility] [place] [facility] [address] [id number] [place] [address]- 5400 Apr, [facility] [place] [facility] [address] [id number] [place] [address]- 0264 Mar, [facility] [place] [facility] [address] [id number] [place] [address]- 0531 Mar, [facility] [place] [facility] [address] [id number] [place] [address]- 8444 Mar, [facility] [place] [facility] [address] [id number], [place] [address]- 5994 Mar, [facility] [place] [facility] [address] [id number], [place] [address]- 1913 29 Feb, 2014 [facility] [place] [facility] [address] [id number], [place] [address]- 7634 29 Feb, 2014 [facility] [place] [facility] [address] [id number] [place] [address]- 0454 23 Feb, 2014 [facility] [place] [facility] [address] [id number] [place] [address]- 9915 23 Feb, 2014 [facility] [place] [facility] [address] [id number], [place] [address]- 4521 22 Feb, 2014 [facility] [place] [facility] [address] [id number], [place] [address]- 8214 22 Sep, 2013 [facility] [place] [facility] [address] [id number] [place] [address] 2546 16 Sep, 2013 [facility] [place] [facility] [address] [id number] [place] [address] 2546 16 Sep, 2013 [facility] [place] [facility] [address] [id number] [place] [address] 2546 16 Sep, 2013 [facility] [place] [facility] [address] [id number] [place] [address]- 254 16 Sep, 2013 [facility] [place] [facility] [address] [id number] [place] [address]- 7408 16 Sep, 2013 [facility] [place] [facility] [address] [id number] [place] [address]- 8105 16 Sep, 2013 [facility] [place] [facility] [address] [id number] [place] [address]- 5587 11 Sep, 2013 [facility] [place] [facility] [address] [id number] [place] [address]- 2543 11 Sep, 2013 [facility] [place] [facility] [address] [id number] [place] [address]- 0700 10 Sep, 2013 [facility] [place] [facility] [address] [id number] [place] [address]- 6411 10 Sep, 2013 [facility] [place] [facility] [address] [id number] [place] [address]- 4507 07 Sep, 2013 [facility] [place] [facility] [address] [id number], [place] [address]- 2545 04 Sep, 2013 [facility] [place] [facility] [address] [id number] [place] [address]- 2549 04 Sep, 2013 [facility] [place] [facility] [address] [id number] [place] [address]- 7701 02 Sep, 2013 [facility] [place] [facility] [address] [id number] [place] [address]- 9111 02 Sep, 2013 [facility] [place] [facility] [address] [id number] [place] 8711 Jan, [facility] [place] [facility] [address] [id number] [place] [address]- 7507 Jan, [facility] [place] [facility] [address] [id number] [place] 3350 Jan, [facility] [place] [facility] [address] [id number] [place] [address]- 9793 Jan, [facility] [place] [facility] [address] [id number] [place] [address]- 1257 Nov, [facility] [place] [facility] [address] [id number] [place] [address]- 4761 Nov, [facility] [place] [facility] [address] [id number] [place] [address]- 0993 October, [facility] [place] [facility] [address] [id number] [place] [address]- 6891 October, [facility] [place] [facility] [address] [id number] [place] [address]- 8230 October, [facility] [place] [facility] [address] [id number] [place] [address]- 5276 October, [facility] [place] [facility] [address] [id number] [place] [address]- 3710 October, [facility] [place] [facility] [address] [id number] [place] [address]- 1427 October, [facility] [place] [facility] [address] [id number] [place] 9899 October, [facility] [place] [facility] [address] [id number] [place] 7842 October, [facility] [place] [facility] [address] [id number] [place] [address]- 7699 Sep, [facility] [place] [facility] [address] [id number] [place] [address]- 9976 Sep, [facility] [place] [facility] [address] [id number] [place] 2175 Sep, [facility] [place] [facility] [address] [id number] [place] [address]- 0076 Sep, [facility] [place] [facility] [address] [facility] [id number] [place] [address]- 5453 Jul, [facility] [place] [facility] [address] [id number] [place] [address]- 9711 Jul, [facility] [place] [facility] [address] [id number] [place] 0336 May, [facility] [place] [facility] [address] [id number] [place] [address]- 9211 May, [facility] [place] [facility] [address] [id number] [place] [address]- 6867 Apr, [facility] [place] [facility] [address] [id number] [place] [address]- 5537 Apr, [facility] [place] [facility] [address] [id number] [place] [address]- 0908 Apr, [facility] [place] [facility] [address] [id number] [place] [address]- 0055 Apr, [facility] [place] [facility] [address] [id number], [place] [address]- 4743 Mar, [facility] [place] [facility] [address] [id number], [place] [address]- 7651 Mar, [facility] [place] [facility] [address] [id number] [place] [address]- 8097 Mar, [facility] [place] [facility] [address] [facility] [id number], [place] [address]- 8214 Mar, [facility] [place] [facility] [address] [facility] [id number], [place] [address]- 2461 Feb, [facility] [place] [facility] [address] [id number] [place] [address]- 9264 Jan, [facility] [address] [id number] [place] [address]- 9969 Jan, [facility] [address] [id number] [place] [address]- 3344 Jan, [facility] [address] [id number] [place] [address]- 5837 Dec, [facility] [address] [id number] [place] [address]- 8835 October, [facility] [address] [id number] [place] [address]- 3342 October, [facility] [address] [id number] [place] [address]- 2366 October, [facility] [address] [id number] [place] [address]- 2038 October, [facility] [address] [id number] [place] [address]- 0955 October, [facility] [address] [id number] [place] [address]- 2242 October, [facility] [address] [id number] [place] [address]- 1314 Sep, [facility] [address] [id number] [place] [address]- 3255 Sep, [facility] [address] [id number] [place] [address]- 6671 Jul, [facility] [address] [id number] [place] [address]- 3257 Jun, [facility] [address] [id number] [place] [address]- 9096 Jun, [facility] [address] [id number] [place] [address]- 7458 Jun, [facility] [place] [facility] [address] [id number] [place] [address]- 2211 May, [facility] [place] [facility] [address] [id number] [place] [address]- 4566 May, [facility] [place] [facility] [address] [id number] [place] [address]- 2888 May, [facility] [place] [facility] [address] [id number] [place] [address]- 3746 May, [facility] [place] [facility] [address] [id number] [place] [address]- 8710 May, [facility] [place] [facility] [address] [id number] [place] [address]- 1486 May, [facility] [place] [facility] [address] [id number] [place] [address]- 6726 Mar, [facility] [place] [facility] [address] [id number] [place] [address]- 3837 Mar, [facility] [place] [facility] [address] [id number] [place] [address]- 7113 Mar, [facility] [place] [facility] [address] [id number] [place] [address]- 2018 Mar, [facility] [place] [facility] [address] [facility] [id number], [place] [address]- 5126 Feb, [facility] [place] [facility] [address] [id number], [place] [address]- 7096 Dec, [facility] [place] [facility] [address] [id number] [place] [address]- 9940 Dec, [facility] [place] [facility] [address] [id number], [place] [address]- 1066 Dec, [facility] [place] [facility] [address] [id number], [place] [address]- 4926 Nov, [facility] [place] [facility] [address] [id number], [place] [address]- 4236 Nov, [facility] [id number], [place] [address]- 7[address] Nov, [facility] [id number], [place] [address]- 9096 Nov, [facility] [id number], [place] [address]- 7796 Aug, [facility] [address], [place] [address]- [address] Jun, [facility] [address] [id number], [place] [address]- 5503 May, [facility] [address], [place] [address]- 7796 Apr, [facility] [address] [id number], [place] [address]- 9434 Mar, [facility] [id number], [place] [address]- 2376 May, IMMUNIZATIONS No Known Immunizations SOCIAL HISTORY Never Assessed REASON FOR VISIT BS f/u attempt PLAN OF CARE VITAL SIGNS MEDICATIONS Unknown [...]
--- OUTSIDE RECORDS SUMMARY | 2018-05-13 07:44 | XMS REPORT ---
Author Author PRECIOUS BOTELLO [facility] Address [address] [place] [address] Care Team Providers Care Outreach Analyst Name Role Phone PRECIOUS BOTELLO Unavailable PROBLEMS Type Condition ICD9-CM Code JHI64-JR Code Onset Dates Condition Status SNOMED Code Problem Status post closed fracture of hip Z87.81 Active 137715748 Problem Dementia in other diseases classified elsewhere without behavioral disturbance F02.80 Active 756657540 Problem Type 2 diabetes mellitus with other circulatory complication, without long-term current use of insulin E11.59 Active 26830425 Problem Panlobular emphysema J43.1 Active 8972493 Problem Enlarged prostate with lower urinary tract symptoms N40.1 Active 058583557533250 Problem Benign prostatic hyperplasia with lower urinary tract symptoms N40.1 Active 179371135 Problem Polydipsia R63.1 Active 99402871 Problem Depression F32.9 Active 07401074 Problem Type 2 diabetes mellitus with hyperglycemia E11.65 Active 035280704926137 Problem HTN (hypertension) I10 Active 91269864 Problem Bipolar disorder, unspecified F31.9 Active 43731516 Problem Acute left-sided low back pain with left-sided sciatica M54.42 Active 776586286 Problem Low back pain, unspecified back pain laterality, with sciatica presence unspecified M54.5 Active 380800768 Problem 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 Active 70365724 Problem Type 2 diabetes mellitus with diabetic polyneuropathy E11.42 Active 184302096 Problem GERD with esophagitis K21.0 Active 145216120 Problem Status post partial amputation of left foot Z89.432 Active 305680823 Problem Hammer toe, unspecified laterality M20.40 Active 856859383 Problem Tinea pedis, unspecified laterality B35.3 Active 6047438 Problem Other Alzheimers disease G30.8 Active 00786193 Problem Peripheral vascular disease due to secondary diabetes E13.51 Active 1703849 Problem Severe pain R52 Active 85897253 ALLERGIES No Information ENCOUNTERS Encounter Location Date Diagnosis [place] [id number] [place] [address] 99672- 3676 Nov, Arthralgia, unspecified joint M25.50 [place] [address] [place] [id number] [place] [address] 30953- 3378 Nov, [place] [address] [place] [id number] [place] [address] 34498- 1694 October, Arthralgia, unspecified joint M25.[address] [facility] [address] [id number] October, Arthralgia, unspecified joint M25.[address] [facility] [address] [id number] Sep, Weakness R53.1 ; Panlobular emphysema J43.1 ; Bipolar disorder, unspecified F31.9 ; Benign prostatic hyperplasia with lower urinary tract symptoms N40.1 and Frequency of micturition R35.0 [place] [id number] [place] [address] 72715- 1497 Sep, [place] [address] [place] [id number] [place] [address] 52718- 8707 Aug, [facility] [address] [id number] Jul, Dementia in other diseases classified elsewhere without behavioral disturbance F02.80 [place] [address] [place] [id number] [place] [address] [id number] Jul, [place] [id number] [place] [address] 34387- 3896 Jun, Bipolar disorder, unspecified F31.[address] [facility] [address] [id number] Jun, Pneumonia due to infectious organism, unspecified laterality, unspecified part of lung J18.9 [place] [address] [address]- 2527 Jun, [place] [address] [id number] [id number] Jun, [facility] [address] [id number] Apr, Type 2 diabetes mellitus with other circulatory complication, without long -term current use of insulin E11.59 [facility] [address] [address] 2546 Apr, [facility] [address] [place] [id number] [id number] Feb, [facility] [id number] [id number] Feb, [facility] [address] [id number] Feb, Sore throat J02.9 and Polyuria R35.8 [place] [address] [id number] [id number] Jan, Bronchitis J40 [facility] [address] [id number] Dec, Cervicalgia M54.2 [place] [id number] [place] [address] 87714- 1516 October, Acute left-sided low back pain with left-sided sciatica M54.42 and Cervicalgia M54.2 [place] [address] [place] [id number] [address] 2546 Sep, Acute left-sided low back pain with left-sided sciatica M54.42 [place] [id number] [id number] Sep, Cervicalgia M54.[address] [facility] [address] [id number] Sep, Cervicalgia M54.2 and Acute left-sided low back pain with left-sided sciatica M54.42 [facility] [address] [id number] [id number] Sep, [facility] [address] [id number] Jul, Type 2 diabetes mellitus with hyperglycemia E11.65 ; Bipolar disorder F31.9 ; 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 ; Peripheral vascular disease due to secondary diabetes E13.51 and Status post partial amputation of left foot Z89.432 [place] [address] [place] [id number] [place] [address] 20577- 1114 Mar, [place] [address] [address]61- 9036 Mar, [place] [address] [place] [id number] [place] [address] 49422- 4839 Mar, [address] [id number] Mar, Dementia in other diseases classified elsewhere without behavioral disturbance F02.80 ; Polydipsia R63.1 ; HTN (hypertension) I10 ; Hypo- osmolality and hyponatremia E87.1 ; Type 2 diabetes mellitus with other circulatory complication, without long-term current use of insulin E11.59 ; Peripheral vascular disease due to secondary diabetes E13.51 and Bipolar disorder, unspecified F31.9 [place] [address] [place] [id number] [place] [address] 09154- 5569 Feb, [place] [address] [place] [id number] [place] [address] 42314- 3677 Jan, [place] [address] [place] [id number] [place] [address] 22087- 6548 Jan, [address] [id number] Jan, Pain of left hip joint M25.552 ; Tobacco abuse Z72.0 and Polydipsia R63.1 [place] [address] [place] [id number] [place] [address] 17422- 7509 Jan, [place] [address] [place] [id number] [place] [address] 52156- 4917 Jan, [place] [address] [place] [id number] [place] [address] 80247- 8987 Dec, [facility] [address] [address]- 3903 Dec, [facility] [place] [address] [place] [id number] Dec, Status post partial amputation of left foot Z89.432 and Peripheral vascular disease due to secondary diabetes E13.51 [facility] [address] [address]- 1605 Dec, [facility] [address] [address]- 7948 Dec, [facility] [address] [address]- 2240 Dec, [facility] [address] [address]- 4478 Nov, [facility] [address] [address]- 8517 Nov, [facility] [place] [address] [place] [id number] Nov, Severe pain R52 and Status post closed fracture of hip Z87.81 [facility] [address] [address]- 0904 Nov, [facility] [address] [address]- 3401 Nov, [facility] [address] [address]- 1450 October, Severe pain R52 [facility] [address] [address]- 9504 October, [facility] [address] [address]- 0804 October, Other Alzheimers disease G30.8 and Dementia in other diseases classified elsewhere without behavioral disturbance F02.80 [facility] [address] [address]- 6991 Sep, [facility] [address] [address]- 5318 Aug, [facility] [id number] Aug, Status post partial amputation of left foot Z89.432 ; 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 and Peripheral vascular disease due to secondary diabetes E13.51 [facility] [id number] [place] [address] 00265- 1045 Jun, [facility] [id number] [place] [address] 00342- 1944 Jun, [facility] [id number] Jun, 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 and Status post partial amputation of left foot Z89.[address] [id number] May, Peripheral vascular disease due to secondary diabetes E13.51 ; Status post partial amputation of left foot Z89.432 and 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 [place] [id number] [place] [address] 08566- 3982 Mar, Gangrene associated with type II diabetes mellitus E11.52 [place] [id number] [place] [address] 54270- 8915 Mar, [facility] [address] [place] [id number] Mar, [facility] [address] [address]- 8110 Feb, Nicotine abuse 305.1 [place] [id number] [place] [address] 307898- 3516 Feb, [facility] [address] 6236 Feb, [facility] [id number] [place] [address] 91908- 6183 Jan, [facility] [address] [address]- 4751 Jan, Diabetes 250.00 ; Peripheral vascular disease 443.9 and Bipolar affective disorder 296.80 [facility] [address] [address]- 1411 Dec, [facility] [address] [place] [id number] [address]- 4158 Dec, [facility] [address] [address]- 6990 Dec, [facility] [address] [place] [id number] [place] [address] 019394- 3642 Dec, [facility] [address] [address]- 9618 Dec, Diabetes mellitus without mention of complication, type II or unspecified type, uncontrolled 250.02 and Vertigo 780.4 [facility] [address] [address]- 1431 Nov, [facility] [address] [address]- 1897 October, Follow-up examination V67.9 ; Diabetes mellitus without mention of complication, type II or unspecified type, uncontrolled 250.02 and Upper respiratory infection 465.9 [facility] [address] [address]- 4929 October, [facility] [address] [address]- 5614 Sep, [facility] [address] [address]- 7087 Sep, [facility] [address] 2610 Aug, [facility] [address] [address]- 2766 Aug, [facility] [place] [facility] [address] [id number] [place] [address]- 8153 Aug, 2014 [facility] [place] [facility] [address] [id number] [place] [address]- 3450 Jul, 2014 [facility] [place] [facility] [address] [id number] [place] [address]- 2229 Jul, 2014 [facility] [place] [facility] [address] [id number] [place] [address]- 7981 Jul, 2014 [facility] [place] [facility] [address] [id number] [place] [address]- 8413 Jul, 2014 [facility] [place] [facility] [address] [id number] [place] [address]- 1448 May, [facility] [place] [facility] [address] [id number] [place] [address]- 4309 May, [facility] [place] [facility] [address] [id number] [place] [address]- 4932 May, [facility] [place] [facility] [address] [id number] [place] [address]- 6850 May, [facility] [place] [facility] [address] [id number] [place] [address]- 6286 Apr, [facility] [place] [facility] [address] [id number] [place] [address]- 6507 Apr, [facility] [place] [facility] [address] [id number] [place] [address]- 1618 Mar, [facility] [place] [facility] [address] [id number] [place] [address]- 4017 Mar, [facility] [place] [facility] [address] [id number] [place] [address]- 0618 Mar, [facility] [place] [facility] [address] [id number] [place] [address]- 0635 Mar, [facility] [place] [facility] [address] [id number] [place] [address]- 0831 29 Sep, 2013 [facility] [place] [facility] [address] [id number] [place] [address] 2547 29 Sep, 2013 [facility] [place] [facility] [address] [id number] [place] [address]- 2226 23 Sep, 2013 [facility] [place] [facility] [address] [id number] [place] [address] 2546 23 Sep, 2013 [facility] [place] [facility] [address] [id number] [place] [address] 2541 22 Sep, 2013 [facility] [place] [facility] [address] [id number] [place] [address] 2540 22 Sep, 2013 [facility] [place] [facility] [address] [id number] [place] [address]- 3360 16 Sep, 2013 [facility] [place] [facility] [address] [id number] [place] [address]- 6529 16 Sep, 2013 [facility] [place] [facility] [address] [id number] [place] [address] 2542 16 Sep, 2013 [facility] [place] [facility] [address] [id number] [place] [address] 2545 16 Sep, 2013 [facility] [place] [facility] [address] [id number] [place] [address]- 2549 16 Sep, 2013 [facility] [place] [facility] [address] [id number] [place] [address]- 2548 16 Sep, 2013 [facility] [place] [facility] [address] [id number] [address] 2544 11 Sep, 2013 [facility] [place] [facility] [address] [id number] [place] [address] 2546 11 Sep, 2013 [facility] [place] [facility] [address] [id number] [place] [address]- 2544 10 Sep, 2013 [facility] [place] [facility] [address] [id number] [place] [address] 2546 10 Sep, 2013 [facility] [place] [facility] [address] [id number] [place] [address]- 6856 07 Feb, 2013 [facility] [address] [id number] [place] [address]- 2869 04 Feb, 2014 [facility] [place] [facility] [address] [id number] [place] [address]- 8326 Feb, [facility] [place] [facility] [address] [id number] [place] [address]- 1567 Feb, [facility] [place] [facility] [address] [id number] [place] [address]- 8100 Feb, [facility] [place] [facility] [address] [id number] [place] [address]- 1179 Jan, [facility] [place] [facility] [address] [id number] [place] [address]- 3006 Jan, [facility] [place] [facility] [address] [id number] [place] [address]- 2359 Jan, [facility] [place] [facility] [address] [id number] [place] [address]- 5904 Jan, [facility] [place] [facility] [address] [id number] [place] [address]- 2633 Nov, [facility] [place] [facility] [address] [id number] [place] [address]- 2431 Nov, [facility] [place] [facility] [address] [id number] [place] [address]- 7065 October, [facility] [place] [facility] [address] [id number] [place] [address]- 7365 October, [facility] [place] [facility] [address] [id number] [place] [address]- 0781 October, [facility] [place] [facility] [address] [id number] [place] [address]- 2350 October, [facility] [place] [facility] [address] [id number] [place] [address]- 2588 October, [facility] [address] [id number] [place] [address]- 0306 October, [facility] [place] [facility] [address] [id number] [place] [address]- 1316 October, [facility] [place] [facility] [address] [id number] [place] [address]- 5996 October, [facility] [place] [facility] [address] [id number] [place] [address]- 0080 Sep, [facility] [place] [facility] [address] [id number] [place] [address]- 1654 Sep, [facility] [place] [facility] [address] [id number] [place] [address]- 7186 Sep, [facility] [place] [facility] [address] [id number] [place] [address]- 2280 Sep, [facility] [place] [facility] [address] [id number] [place] [address]- 2369 Jul, [facility] [place] [facility] [address] [id number] [place] [address]- 6363 Jul, [facility] [place] [facility] [address] [id number] [place] [address]- 2707 May, [facility] [place] [facility] [address] [id number] [place] [address]- 9636 May, [facility] [place] [facility] [address] [id number] [place] [address]- 1729 Apr, [facility] [place] [facility] [address] [id number] [place] [address]- 3603 Apr, [facility] [place] [facility] [address] [id number] [place] [address]- 3546 Apr, [facility] [place] [facility] [address] [id number] [place] [address]- 2450 Apr, [facility] [place] [facility] [address] [id number] [place] [address] 2542 Mar, [facility] [address] [id number] [place] [address]- 1600 Mar, [facility] [address] [id number] [place] [address]- 1366 Mar, [facility] [address] [id number] [place] [address] 2546 Mar, [facility] [address] [id number] [place] [address] 2541 Feb, [facility] [address] [id number] [place] [address]- 9782 Jan, [facility] [address] [id number] [place] [address]- 3761 Jan, [facility] [address] [id number] [place] [address]- 7034 Jan, [facility] [address] [id number] [place] [address]- 5078 Dec, [facility] [address] [id number] [place] [address]- 1284 October, [facility] [address] [id number] [place] [address]- 6814 October, [facility] [address] [id number] [place] [address]- 2326 October, [facility] [address] [id number] [place] [address]- 2546 October, [facility] [address] [id number] [place] [address]- 6102 October, [facility] [address] [id number] [place] [address] 2546 October, [facility] [address] [id number] [place] [address]- 5584 Sep, [facility] [address] [id number] [place] [address]- 7982 Sep, [facility] [place] [facility] [address] [id number] [place] [address]- 0323 Jul, [facility] [place] [facility] [address] [id number] [place] [address]- 2177 Jun, [facility] [place] [facility] [address] [id number] [place] [address]- 0372 Jun, [facility] [place] [facility] [address] [id number] [place] [address]- 6291 16 Jun, 2012 [facility] [place] [facility] [address] [id number] [place] [address]- 8986 May, [facility] [place] [facility] [address] [id number] [place] [address]- 3283 May, [facility] [place] [facility] [address] [id number] [place] [address]- 9619 May, [facility] [place] [facility] [address] [id number] [place] [address]- 0495 May, [facility] [place] [facility] [address] [id number] [place] [address]- 2735 May, [facility] [place] [facility] [address] [id number] [place] [address]- 2495 May, [facility] [place] [facility] [address] [id number] [place] [address]- 2332 Mar, [facility] [place] [facility] [address] [id number] [place] [address]- 6693 Mar, [facility] [place] [facility] [address] [id number] [place] [address]- 8695 Mar, [facility] [place] [facility] [address] [id number] [place] [address]- 0412 Mar, [facility] [place] [facility] [address] [id number] [place] [address]- 8941 Feb, [facility] [id number] [address]- 2031 Dec, [facility] [address] [address]- 1766 Dec, [facility] [address] [address]- 1176 Dec, [facility] [address] [address]- 2500 Nov, [facility] [address] [address]- 7708 Nov, [facility] [id number] [place] [address] 40429- 0347 Nov, [facility] [id number] [address] Nov, [facility] [id number] [address] Aug, [facility] [id number] [address] Jun, [facility] [id number] [address] May, [facility] [id number] [address] Apr, [facility] [id number] [address] Mar, [facility] [id number] [address] May, IMMUNIZATIONS No Known Immunizations SOCIAL HISTORY Never Assessed REASON FOR VISIT Ins not covering Pristiq Change PLAN OF CARE VITAL SIGNS MEDICATIONS Medication Instructions Dosage Frequency Start Date End Date Duration Status Venlafaxine HCl ER 75 MG Orally Once a day 1 capsule with food 24h Jun, 30 day(s) Active RESULTS No Results PROCEDURES No Known [...]
--- OUTSIDE RECORDS SUMMARY | 2018-05-13 07:44 | XMS REPORT ---
Author Author PRECIOUS BOTELLO [facility] Address [address] [place] [address] Care Team Providers Care Senior Biostatistician Name Role Phone PRECIOUS BOTELLO Unavailable PROBLEMS Type Condition ICD9-CM Code BMQ55-DF Code Onset Dates Condition Status SNOMED Code Problem Status post closed fracture of hip Z87.81 Active 781323577 Problem Dementia in other diseases classified elsewhere without behavioral disturbance F02.80 Active 852541735 Problem Type 2 diabetes mellitus with other circulatory complication, without long-term current use of insulin E11.59 Active 78538935 Problem Panlobular emphysema J43.1 Active 6199975 Problem Enlarged prostate with lower urinary tract symptoms N40.1 Active 279596751807899 Problem Benign prostatic hyperplasia with lower urinary tract symptoms N40.1 Active 773822571 Problem Polydipsia R63.1 Active 91784612 Problem Depression F32.9 Active 55888319 Problem Type 2 diabetes mellitus with hyperglycemia E11.65 Active 819632159710835 Problem HTN (hypertension) I10 Active 66250398 Problem Bipolar disorder, unspecified F31.9 Active 23528505 Problem Acute left-sided low back pain with left-sided sciatica M54.42 Active 635517118 Problem Low back pain, unspecified back pain laterality, with sciatica presence unspecified M54.5 Active 237698603 Problem 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 Active 72288451 Problem Type 2 diabetes mellitus with diabetic polyneuropathy E11.42 Active 759786213 Problem GERD with esophagitis K21.0 Active 707049829 Problem Status post partial amputation of left foot Z89.432 Active 859067426 Problem Hammer toe, unspecified laterality M20.40 Active 943526088 Problem Tinea pedis, unspecified laterality B35.3 Active 3311137 Problem Other Alzheimers disease G30.8 Active 52858795 Problem Peripheral vascular disease due to secondary diabetes E13.51 Active 6193497 Problem Severe pain R52 Active 08553149 ALLERGIES No Information ENCOUNTERS Encounter Location Date Diagnosis [facility] [address] [place], [place] [id number] Sep, Weakness R53.1 ; Panlobular emphysema J43.1 ; Bipolar disorder, unspecified F31.9 ; Benign prostatic hyperplasia with lower urinary tract symptoms N40.1 and Frequency of micturition R35.0 [place] [id number] [place] [id number]- 8506 Sep, [place] [address] [place] [id number] [place] [address] 144895- 6250 Aug, [facility] [address] [place] [id number] Jul, Dementia in other diseases classified elsewhere without behavioral disturbance F02.80 [place] [id number] [place] [id number] Jul, [place] [id number] [place] [address] [id number]- 4480 Jun, Bipolar disorder, unspecified F31.[address] [facility] [address] [id number] Jun, Pneumonia due to infectious organism, unspecified laterality, unspecified part of lung J18.9 [place] [id number] [place] [address] 58124- 4591 Jun, [place] [id number] [place] [address] [id number] Jun, [facility] [address] [place] [id number] Apr, Type 2 diabetes mellitus with other circulatory complication, without long -term current use of insulin E11.59 [place] [id number] [place] [address] 06754- 2546 Apr, [place] [id number] [place] [address] [id number] Feb, [place] [id number] [place] [address] [id number] Feb, [facility] [address] [id number] Feb, Sore throat J02.9 and Polyuria R35.8 [facility] [id number] [id number] Jan, Bronchitis J40 [facility] [address] [id number] Dec, Cervicalgia M54.2 [facility] [id number] [place] [address] 32296- 8056 October, Acute left-sided low back pain with left-sided sciatica M54.42 and Cervicalgia M54.2 [place] [address] [place] [address] 72455- 1916 Sep, Acute left-sided low back pain with left-sided sciatica M54.42 [place] [id number] [place] [address] [id number] Sep, Cervicalgia M54.[address] [facility] [address] [id number] Sep, Cervicalgia M54.2 and Acute left-sided low back pain with left-sided sciatica M54.42 [facility] [id number] [id number] Sep, [facility] [address] [id number] Jul, Type 2 diabetes mellitus with hyperglycemia E11.65 ; Bipolar disorder F31.9 ; 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 ; Peripheral vascular disease due to secondary diabetes E13.51 and Status post partial amputation of left foot Z89.432 [facility] [address] [address] 5590 Mar, [facility] [address] [address]13 Mar, [facility] [address] [place] [address] 89779- 6839 Mar, [facility] [address] [id number] Mar, Dementia in other diseases classified elsewhere without behavioral disturbance F02.80 ; Polydipsia R63.1 ; HTN (hypertension) I10 ; Hypo- osmolality and hyponatremia E87.1 ; Type 2 diabetes mellitus with other circulatory complication, without long-term current use of insulin E11.59 ; Peripheral vascular disease due to secondary diabetes E13.51 and Bipolar disorder, unspecified F31.9 [place] [address] [address] 2956 Feb, [place] [id number] [place] [address] 42463- 7271 Jan, [place] [id number] [place] [address] 83681- 7081 Jan, [facility] [address] [id number] Jan, Pain of left hip joint M25.552 ; Tobacco abuse Z72.0 and Polydipsia R63.1 [place] [address] [address] 3[address] Jan, [place] [address] [address]- 6912 Jan, [place] [address] [address]- 0547 Dec, [place] [address] [address]- 0243 Dec, [facility] [address] [id number] Dec, Status post partial amputation of left foot Z89.432 and Peripheral vascular disease due to secondary diabetes E13.51 [place] [address] [address]- 8538 Dec, [place] [address] [address]- 8512 Dec, [facility] [address] [address]- 7227 Dec, [facility] [address] [address]- 2960 Nov, [facility] [address] [address]- 3565 Nov, [facility] [address] [id number] Nov, Severe pain R52 and Status post closed fracture of hip Z87.81 [facility] [address] [address] 0120 Nov, [facility] [address] [place] [address] 62768- 1354 Nov, [facility] [address] [address]- 7426 October, Severe pain R52 [facility] [id number] [address] 2897 October, [facility] [address] [place] [address] 97850- 6545 October, Other Alzheimers disease G30.8 and Dementia in other diseases classified elsewhere without behavioral disturbance F02.80 [facility] [address] [address] 4801 Sep, [facility] [address] [address]- 4025 Aug, [facility] [address] [id number] Aug, Status post partial amputation of left foot Z89.432 ; 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 and Peripheral vascular disease due to secondary diabetes E13.51 [facility] [address] [address]- 7557 Jun, [facility] [id number] [place] [address] 49510- 3557 Jun, [facility] [address] [address] Jun, 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 and Status post partial amputation of left foot Z89.432 [facility] [address] [id number] May, Peripheral vascular disease due to secondary diabetes E13.51 ; Status post partial amputation of left foot Z89.432 and 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 [facility] [id number] [place] [address] 79547- 0999 Mar, Gangrene associated with type II diabetes mellitus E11.52 [facility] [id number] [place] [address] 83260- 5803 Mar, [facility] [address] [id number] Mar, [facility] [id number] [place] [address] 74255- 4306 Feb, Nicotine abuse 305.1 [facility] [id number] [place] [address] 68317- 6913 Feb, [facility] [id number] [place] [address] 47026- 9979 Feb, [facility] [id number] [place] [address] 48255- 7455 Jan, [facility] [id number] [place] [address] 72093- 8987 Jan, Diabetes 250.00 ; Peripheral vascular disease 443.9 and Bipolar affective disorder 296.80 [facility] [id number] [place] [address] 42834- 3985 Dec, [facility] [id number] [place] [address] 05049960- 4248 Dec, [facility] [id number] [place] [address] 50588- 5465 Dec, [facility] [address] [address]- 0576 Dec, [facility] [address] [address]- 9304 Dec, Diabetes mellitus without mention of complication, type II or unspecified type, uncontrolled 250.02 and Vertigo 780.4 [facility] [address] [address]- 0366 Nov, [facility] [address] [address]- 8996 October, Follow-up examination V67.9 ; Diabetes mellitus without mention of complication, type II or unspecified type, uncontrolled 250.02 and Upper respiratory infection 465.9 [facility] [address] [address]- 4976 October, [facility] [address] [address]- 4926 Sep, [facility] [address] [address]- 0090 Sep, [facility] [address] [address]- 0910 Aug, [facility] [address], [place] [address]- 2116 Aug, [facility] [address] [address]- 2466 Aug, [facility] [address] [address]- 1386 Jul, [facility] [address], [place] [address]- 8146 Jul, [facility] [address] [address]- 2546 Jul, [facility] [address] [address]- 2599 Jul, [facility] [place] [facility] [address] [id number] [place] [address]- 7362 May, [facility] [place] [facility] [address] [id number] [place] [address]- 7746 May, [facility] [place] [facility] [address] [id number] [place] [address]- 5946 May, [facility] [place] [facility] [address] [id number] [place] [address]- 3958 May, [facility] [place] [facility] [address] [id number] [place] [address]- 5140 Apr, [facility] [place] [facility] [address] [id number] [place] [address]- 8510 Apr, [facility] [place] [facility] [address] [id number] [place] [address]- 2052 Mar, [facility] [place] [facility] [address] [id number] [place] [address]- 3054 Mar, [facility] [place] [facility] [address] [id number] [place] [address]- 3732 Mar, [facility] [place] [facility] [address] [id number], [place] [address]- 5723 Mar, [facility] [place] [facility] [address] [id number], [place] [address]- 1692 29 Feb, 2014 [facility] [place] [facility] [address] [id number], [place] [address]- 0893 29 Feb, 2014 [facility] [place] [facility] [address] [id number] [place] [address]- 0181 23 Feb, 2014 [facility] [place] [facility] [address] [id number] [place] [address]- 1835 23 Feb, 2014 [facility] [place] [facility] [address] [id number], [place] [address]- 2992 22 Feb, 2014 [facility] [place] [facility] [address] [id number][place] [address]- 2496 22 Sep, 2013 [facility] [place] [facility] [address] [id number] [place] [address] 2546 16 Sep, 2013 [facility] [place] [facility] [address] [id number] [place] [address] 2546 16 Sep, 2013 [facility] [place] [facility] [address] [id number] [place] [address] 2546 16 Sep, 2013 [facility] [place] [facility] [address] [id number] [place] [address]- 2541 16 Sep, 2013 [facility] [place] [facility] [address] [id number] [place] [address]- 6636 16 Sep, 2013 [facility] [place] [facility] [address] [id number] [place] [address]- 6087 16 Sep, 2013 [facility] [place] [facility] [address] [id number] [place] [address]- 6651 11 Sep, 2013 [facility] [place] [facility] [address] [id number] [place] [address]- 2541 11 Sep, 2013 [facility] [place] [facility] [address] [id number] [place] [address]- 8072 10 Sep, 2013 [facility] [place] [facility] [address] [id number] [place] [address]- 5386 10 Sep, 2013 [facility] [place] [facility] [address] [id number] [place] [address]- 8507 07 Sep, 2013 [facility] [place] [facility] [address] [id number], [place] [address]- 2540 04 Sep, 2013 [facility] [place] [facility] [address] [id number] [place] [address]- 2541 04 Sep, 2013 [facility] [place] [facility] [address] [id number] [place] [address]- 5736 02 Sep, 2013 [facility] [place] [facility] [address] [id number] [place] [address]- 6076 02 Sep, 2013 [facility] [place] [facility] [address] [id number] [place] [address]457 Jan, [facility] [place] [facility] [address] [id number] [place] [address]- 7330 Jan, [facility] [place] [facility] [address] [id number] [place] [address]359 Jan, [facility] [place] [facility] [address] [id number] [place] [address]- 3407 Jan, [facility] [place] [facility] [address] [id number] [place] [address]- 8132 Nov, [facility] [place] [facility] [address] [id number] [place] [address]- 5102 Nov, [facility] [place] [facility] [address] [id number] [place] [address]- 2986 October, [facility] [place] [facility] [address] [id number] [place] [address]- 9028 October, [facility] [place] [facility] [address] [id number] [place] [address]- 9354 October, [facility] [place] [facility] [address] [id number] [place] [address]- 7078 October, [facility] [place] [facility] [address] [id number] [place] [address]- 0473 October, [facility] [place] [facility] [address] [id number] [place] [address]- 6976 October, [facility] [place] [facility] [address] [id number] [place] 1497 October, [facility] [place] [facility] [address] [id number] [place] 7298 October, [facility] [place] [facility] [address] [id number] [place] [address]- 2437 Sep, [facility] [place] [facility] [address] [id number] [place] [address]- 5231 Sep, [facility] [place] [facility] [address] [id number] [place] 4516 Sep, [facility] [place] [facility] [address] [id number] [place] [address]- 1464 Sep, [facility] [place] [facility] [address] [facility] [id number] [place] [address]- 1532 Jul, [facility] [place] [facility] [address] [id number] [place] [address]- 1369 Jul, [facility] [place] [facility] [address] [id number] [place] 5442 May, [facility] [place] [facility] [address] [id number] [place] [address]- 6214 May, [facility] [place] [facility] [address] [id number] [place] [address]- 5304 Apr, [facility] [place] [facility] [address] [id number] [place] [address]- 2998 Apr, [facility] [place] [facility] [address] [id number] [place] [address]- 5163 Apr, [facility] [place] [facility] [address] [id number] [place] [address]- 7431 Apr, [facility] [place] [facility] [address] [id number], [place] [address]- 2099 Mar, [facility] [place] [facility] [address] [id number], [place] [address]- 2703 Mar, [facility] [place] [facility] [address] [id number] [place] [address]- 5281 Mar, [facility] [place] [facility] [address] [facility] [id number], [place] [address]- 4176 Mar, [facility] [place] [facility] [address] [facility] [id number], [place] [address]- 7297 Feb, [facility] [place] [facility] [address] [id number] [place] [address]- 9640 Jan, [facility] [address] [id number] [place] [address]- 3377 Jan, [facility] [address] [id number] [place] [address]- 5287 Jan, [facility] [address] [id number] [place] [address]- 5088 Dec, [facility] [address] [id number] [place] [address]- 8664 October, [facility] [address] [id number] [place] [address]- 7261 October, [facility] [address] [id number] [place] [address]- 3836 October, [facility] [address] [id number] [place] [address]- 2696 October, [facility] [address] [id number] [place] [address]- 9806 October, [facility] [address] [id number] [place] [address]- 5198 October, [facility] [address] [id number] [place] [address]- 1707 Sep, [facility] [address] [id number] [place] [address]- 2032 Sep, [facility] [address] [id number] [place] [address]- 7633 Jul, [facility] [address] [id number] [place] [address]- 4780 Jun, [facility] [address] [id number] [place] [address]- 3473 Jun, [facility] [address] [id number] [place] [address]- 9075 Jun, [facility] [place] [facility] [address] [id number] [place] [address]- 5280 May, [facility] [place] [facility] [address] [id number] [place] [address]- 7186 May, [facility] [place] [facility] [address] [id number] [place] [address]- 6343 May, [facility] [place] [facility] [address] [id number] [place] [address]- 1476 May, [facility] [place] [facility] [address] [id number] [place] [address]- 0135 May, [facility] [place] [facility] [address] [id number] [place] [address]- 1436 May, [facility] [place] [facility] [address] [id number] [place] [address]- 4177 Mar, [facility] [place] [facility] [address] [id number] [place] [address]- 9850 Mar, [facility] [place] [facility] [address] [id number] [place] [address]- 2766 Mar, [facility] [place] [facility] [address] [id number] [place] [address]- 7595 Mar, [facility] [place] [facility] [address] [facility] [id number], [place] [address]- 7646 Feb, [facility] [place] [facility] [address] [id number], [place] [address]- 7806 Dec, [facility] [place] [facility] [address] [id number] [place] [address]- 1089 Dec, [facility] [place] [facility] [address] [id number], [place] [address]- 4796 Dec, [facility] [place] [facility] [address] [id number], [place] [address]- 2386 Nov, [facility] [place] [facility] [address] [id number], [place] [address]- 2546 Nov, [facility] [address] [id number] [address] 2546 Nov, [facility] [address] [id number], [place] [address]- 9536 Nov, [facility] [address] [id number], [place] [address]- 2546 Aug, [facility] [address], [place] [address]- 2546 Jun, [facility] [address], [place] [address]- 8276 May, [facility] [address], [place] [address]- 2546 Apr, [facility] [address] [id number], [place] [address]- 7316 Mar, [facility] [address] [id number], [place] [address]- 2546 May, IMMUNIZATIONS No Known Immunizations SOCIAL HISTORY Never Assessed REASON FOR VISIT MLF PLAN OF CARE Activity Details Follow Up prn Reason: VITAL SIGNS MEDICATIONS Unknown Medications RESULTS No Results PROCEDURES Procedure Date Ordered Result Body Site Stable Visit (10 minutes) December 31, 2016 INSTRUCTIONS MEDICATIONS ADMINISTERED No Known Medications MEDICAL [...]
[2018-05-13] MEDS ORDERED: RT-ALBUTEROL/IPRATROPIUM 3 ML (DUONEB) VIAL INH SCH (07:45)
[2018-05-13 07:47] LABS: FIBRIN DEGRADATION PRODUCTS 0.87 UG/ML (0.00-0.49); PROTHROMBIN TIME PATIENT 12.7 SEC (12.2-14.7)
[2018-05-13 07:51] LABS: BACTERIA,URINE LARGE /HPF; RBC,URINE 50-100 /HPF; WBC,URINE TNTC /HPF
--- OUTSIDE RECORDS SUMMARY | 2018-05-13 07:51 | XMS REPORT | Continuity of Care Document ---
Author Author [facility] Address Unknown Phone Unavailable Allergies Active Description Code Type Severity Reaction Onset Reported/Identified Relationship to Patient Clinical Status Yes Keflex Drug Allergy 01/16/2009 Yes Keflex Drug Allergy N/A N/A 01/16/2009 Yes Cephalexin Monohydrate [id number] Drug Allergy Unknown N/A 02/02/2015 Medications There is no data. Problems Date Dx Coded Attending Type Code Diagnosis Diagnosed By 02/17/2008 BARBER YO APRN 250.00 DIABETES MELLITUS 02/17/2008 BARBER YO APRN 250.40 NEPHROPATHY DIABETIC 02/17/2008 BARBER YO APRN 272.4 HYPERLIPIDEMIA UNSPECIFIED 02/17/2008 250.00 DIABETES MELLITUS 02/17/2008 250.40 NEPHROPATHY DIABETIC 02/17/2008 272.4 HYPERLIPIDEMIA UNSPECIFIED 02/17/2008 250.00 DIABETES MELLITUS 02/17/2008 250.40 NEPHROPATHY DIABETIC 02/17/2008 272.4 HYPERLIPIDEMIA UNSPECIFIED 02/17/2008 250.00 DIABETES MELLITUS 02/17/2008 250.40 NEPHROPATHY DIABETIC 02/17/2008 272.4 HYPERLIPIDEMIA UNSPECIFIED 02/17/2008 BARBER YO APRN 250.00 DIABETES MELLITUS 02/17/2008 BARBER YO APRN 250.40 NEPHROPATHY DIABETIC 02/17/2008 BARBER YO APRN 272.4 HYPERLIPIDEMIA UNSPECIFIED 02/17/2008 250.00 DIABETES MELLITUS 02/17/2008 250.40 NEPHROPATHY DIABETIC 02/17/2008 272.4 HYPERLIPIDEMIA UNSPECIFIED 02/17/2008 250.00 DIABETES MELLITUS 02/17/2008 250.40 NEPHROPATHY DIABETIC 02/17/2008 272.4 HYPERLIPIDEMIA UNSPECIFIED 02/17/2008 250.00 DIABETES MELLITUS 02/17/2008 250.40 NEPHROPATHY DIABETIC 02/17/2008 272.4 HYPERLIPIDEMIA UNSPECIFIED 02/17/2008 250.00 DIABETES MELLITUS 02/17/2008 250.40 NEPHROPATHY DIABETIC 02/17/2008 272.4 HYPERLIPIDEMIA UNSPECIFIED 02/17/2008 250.00 DIABETES MELLITUS 02/17/2008 250.40 NEPHROPATHY DIABETIC 02/17/2008 272.4 HYPERLIPIDEMIA UNSPECIFIED 02/17/2008 250.00 DIABETES MELLITUS 02/17/2008 250.40 NEPHROPATHY DIABETIC 02/17/2008 272.4 HYPERLIPIDEMIA UNSPECIFIED 02/17/2008 DONALDSON CASHERO CERTIFIED MEDICINE AIDE, SABINA N 250.00 DIABETES MELLITUS 02/17/2008 DONALDSON CASHERO CERTIFIED MEDICINE AIDE, SABINA N 250.40 NEPHROPATHY DIABETIC 02/17/2008 DONALDSON CASHERO CERTIFIED MEDICINE AIDE, SABINA N 272.4 HYPERLIPIDEMIA UNSPECIFIED 02/17/2008 AVILA DO, AILYN K 250.00 DIABETES MELLITUS 02/17/2008 AVILA DO, AILYN K 250.40 NEPHROPATHY DIABETIC 02/17/2008 AVILA DO, AILYN K 272.4 HYPERLIPIDEMIA UNSPECIFIED 02/17/2008 DONALDSON CASHERO CERTIFIED MEDICINE AIDE, SABINA N 250.00 DIABETES MELLITUS 02/17/2008 DONALDSON CASHERO CERTIFIED MEDICINE AIDE, SABINA N 250.40 NEPHROPATHY DIABETIC 02/17/2008 DONALDSON CASHERO CERTIFIED MEDICINE AIDE, SABINA N 272.4 HYPERLIPIDEMIA UNSPECIFIED 02/17/2008 DONALDSON CASHERO CERTIFIED MEDICINE AIDE, SABINA N 250.00 DIABETES MELLITUS 02/17/2008 DONALDSON CASHERO CERTIFIED MEDICINE AIDE, SABINA N 250.40 NEPHROPATHY DIABETIC 02/17/2008 DONALDSON CASHERO CERTIFIED MEDICINE AIDE, SABINA N 272.4 HYPERLIPIDEMIA UNSPECIFIED 02/17/2008 DONALDSON CASHERO CERTIFIED MEDICINE AIDE, SABINA N 250.00 DIABETES MELLITUS 02/17/2008 DONALDSON CASHERO CERTIFIED MEDICINE AIDE, SABINA N 250.40 NEPHROPATHY DIABETIC 02/17/2008 DONALDSON CASHERO CERTIFIED MEDICINE AIDE, SABINA N 272.4 HYPERLIPIDEMIA UNSPECIFIED 02/17/2008 AVILA DO, AILYN K 250.00 DIABETES MELLITUS 02/17/2008 AVILA DO, AILYN K 250.40 NEPHROPATHY DIABETIC 02/17/2008 AVILA DO, AILYN K 272.4 HYPERLIPIDEMIA UNSPECIFIED 02/17/2008 DONALDSON CASHERO CERTIFIED MEDICINE AIDE, SABINA N 250.00 DIABETES MELLITUS 02/17/2008 DONALDSON CASHERO CERTIFIED MEDICINE AIDE, SAIBNA N 250.40 NEPHROPATHY DIABETIC 02/17/2008 DONALDSON CASHERO CERTIFIED MEDICINE AIDE, SABINA N 272.4 HYPERLIPIDEMIA UNSPECIFIED 02/17/2008 DONALDSON CASHERO CERTIFIED MEDICINE AIDE, SABINA N 250.00 DIABETES MELLITUS 02/17/2008 DONALDSON CASHERO CERTIFIED MEDICINE AIDE, SABINA N 250.40 NEPHROPATHY DIABETIC 02/17/2008 DNOALDSON CASHERO CERTIFIED MEDICINE AIDE, SABINA N 272.4 HYPERLIPIDEMIA UNSPECIFIED 02/17/2008 AVILA DO, AILYN K 250.00 DIABETES MELLITUS 02/17/2008 AVILA DO, AILYN K 250.40 NEPHROPATHY DIABETIC 02/17/2008 AVILA DO, AILYN K 272.4 HYPERLIPIDEMIA UNSPECIFIED 02/17/2008 DONALDSON CASHERO CERTIFIED MEDICINE AIDE, SABINA N 250.00 DIABETES MELLITUS 02/17/2008 DONALDSON CASHERO CERTIFIED MEDICINE AIDE, SABINA N 250.40 NEPHROPATHY DIABETIC 02/17/2008 DONALDSON CASHERO CERTIFIED MEDICINE AIDE, SABINA N 272.4 HYPERLIPIDEMIA UNSPECIFIED 02/17/2008 SHELBI DPM, MCKENZIE 250.00 DIABETES MELLITUS 02/17/2008 SHELBI DPM, MCKENZIE 250.40 NEPHROPATHY DIABETIC 02/17/2008 SHELBI DPM, MCKENZIE 272.4 HYPERLIPIDEMIA UNSPECIFIED 02/17/2008 DONALDSON CASHERO CERTIFIED MEDICINE AIDE, SABINA N 250.00 DIABETES MELLITUS 02/17/2008 DONALDSON CASHERO CERTIFIED MEDICINE AIDE, SABINA N 250.40 NEPHROPATHY DIABETIC 02/17/2008 DONALDSON CASHERO CERTIFIED MEDICINE AIDE, SABINA N 272.4 HYPERLIPIDEMIA UNSPECIFIED 02/17/2008 DONALDSON CASHERO CERTIFIED MEDICINE AIDE, SABINA N 250.00 DIABETES MELLITUS 02/17/2008 DONALDSON CASHERO CERTIFIED MEDICINE AIDE, SABINA N 250.40 NEPHROPATHY DIABETIC 02/17/2008 DONALDSON CASHERO CERTIFIED MEDICINE AIDE, SABINA N 272.4 HYPERLIPIDEMIA UNSPECIFIED 02/17/2008 DONALDSON CASHERO CERTIFIED MEDICINE AIDE, SABINA N 250.00 DIABETES MELLITUS 02/17/2008 DONALDSON CASHERO CERTIFIED MEDICINE AIDE, SABINA N 250.40 NEPHROPATHY DIABETIC 02/17/2008 DONALDSON CASHERO CERTIFIED MEDICINE AIDE, SABINA N 272.4 HYPERLIPIDEMIA UNSPECIFIED 02/17/2008 DONALDSON CASHERO CERTIFIED MEDICINE AIDE, SABINA N 250.00 DIABETES MELLITUS 02/17/2008 DONALDSON CASHERO CERTIFIED MEDICINE AIDE, SABINA N 250.40 NEPHROPATHY DIABETIC 02/17/2008 DONALDSON CASHERO CERTIFIED MEDICINE AIDE, SABINA N 272.4 HYPERLIPIDEMIA UNSPECIFIED 02/26/2008 BARBER YO APRN 465.9 UPPER RESPIRATORY INFECTION 02/26/2008 465.9 UPPER RESPIRATORY INFECTION 02/26/2008 465.9 UPPER RESPIRATORY INFECTION 02/26/2008 465.9 UPPER RESPIRATORY INFECTION 02/26/2008 BARBER YO APRN 465.9 UPPER RESPIRATORY INFECTION 02/26/2008 465.9 UPPER RESPIRATORY INFECTION 02/26/2008 465.9 UPPER RESPIRATORY INFECTION 02/26/2008 465.9 UPPER RESPIRATORY INFECTION 02/26/2008 465.9 UPPER RESPIRATORY INFECTION 02/26/2008 465.9 UPPER RESPIRATORY INFECTION 02/26/2008 465.9 UPPER RESPIRATORY INFECTION 02/26/2008 DONALDSON CASHERO CERTIFIED MEDICINE AIDE, SABINA N 465.9 UPPER RESPIRATORY INFECTION 02/26/2008 AVILA DO, AILYN K 465.9 UPPER RESPIRATORY INFECTION 02/26/2008 DONALDSON CASHERO CERTIFIED MEDICINE AIDE, SABINA N 465.9 UPPER RESPIRATORY INFECTION 02/26/2008 DONALDSON CASHERO CERTIFIED MEDICINE AIDE, SABINA N 465.9 UPPER RESPIRATORY INFECTION 02/26/2008 DONALDSON CASHERO CERTIFIED MEDICINE AIDE, SABINA N 465.9 UPPER RESPIRATORY INFECTION 02/26/2008 AVIAL DO, AILYN K 465.9 UPPER RESPIRATORY INFECTION 02/26/2008 DONALDSON CASHERO CERTIFIED MEDICINE AIDE, SABNIA N 465.9 UPPER RESPIRATORY INFECTION 02/26/2008 DONALDSON CASHERO CERTIFIED MEDICINE AIDE, SABINA N 465.9 UPPER RESPIRATORY INFECTION 02/26/2008 AVILA DO, AILYN K 465.9 UPPER RESPIRATORY INFECTION 02/26/2008 DONALDSON CASHERO CERTIFIED MEDICINE AIDE, SABINA N 465.9 UPPER RESPIRATORY INFECTION 02/26/2008 SHELBI DPM, MCKENZIE 465.9 UPPER RESPIRATORY INFECTION 02/26/2008 DONALDSON CASHERO CERTIFIED MEDICINE AIDE, SABINA N 465.9 UPPER RESPIRATORY INFECTION 02/26/2008 DONALDSON CASHERO CERTIFIED MEDICINE AIDE, SABINA N 465.9 UPPER RESPIRATORY INFECTION 02/26/2008 DONALDSON CASHERO CERTIFIED MEDICINE AIDE, SABINA N 465.9 UPPER RESPIRATORY INFECTION 02/26/2008 DONALDSON CASHERO CERTIFIED MEDICINE AIDE, SABINA N 465.9 UPPER RESPIRATORY INFECTION 04/21/2008 BARBER YO APRN 466.0 BRONCHITIS, ACUTE 04/21/2008 466.0 BRONCHITIS, ACUTE 04/21/2008 466.0 BRONCHITIS, ACUTE 04/21/2008 466.0 BRONCHITIS, ACUTE 04/21/2008 BARBER YO APRN 466.0 BRONCHITIS, ACUTE 04/21/2008 466.0 BRONCHITIS, ACUTE 04/21/2008 466.0 BRONCHITIS, ACUTE 04/21/2008 466.0 BRONCHITIS, ACUTE 04/21/2008 466.0 BRONCHITIS, ACUTE 04/21/2008 466.0 BRONCHITIS, ACUTE 04/21/2008 466.0 BRONCHITIS, ACUTE 04/21/2008 DONALDSON CASHERO CERTIFIED MEDICINE AIDE, SABINA N 466.0 BRONCHITIS, ACUTE 04/21/2008 AVILA DO, AILYN K 466.0 BRONCHITIS, ACUTE 04/21/2008 DONALDSON CASHERO CERTIFIED MEDICINE AIDE, SABINA N 466.0 BRONCHITIS, ACUTE 04/21/2008 DONALDSON CASHERO CERTIFIED MEDICINE AIDE, SABINA N 466.0 BRONCHITIS, ACUTE 04/21/2008 DONALDSON CASHERO CERTIFIED MEDICINE AIDE, SABINA N 466.0 BRONCHITIS, ACUTE 04/21/2008 AVILA DO, AILYN K 466.0 BRONCHITIS, ACUTE 04/21/2008 DONALDSON CASHERO CERTIFIED MEDICINE AIDE, SABINA N 466.0 BRONCHITIS, ACUTE 04/21/2008 DONALDSON CASHERO CERTIFIED MEDICINE AIDE, SABINA N 466.0 BRONCHITIS, ACUTE 04/21/2008 AVILA DO, AILYN K 466.0 BRONCHITIS, ACUTE 04/21/2008 DONALDSON CASHERO CERTIFIED MEDICINE AIDE, SABINA N 466.0 BRONCHITIS, ACUTE 04/21/2008 SHELBI DPM, MCKENZIE 466.0 BRONCHITIS, ACUTE 04/21/2008 DONALDSON CASHERO CERTIFIED MEDICINE AIDE, SABINA N 466.0 BRONCHITIS, ACUTE 04/21/2008 DONALDSON CASHERO CERTIFIED MEDICINE AIDE, SABINA N 466.0 BRONCHITIS, ACUTE 04/21/2008 DONALDSON CASHERO CERTIFIED MEDICINE AIDE, SABINA N 466.0 BRONCHITIS, ACUTE 04/21/2008 DONALDSON CASHERO CERTIFIED MEDICINE AIDE, SABINA N 466.0 BRONCHITIS, ACUTE 05/26/2008 BARBER YO APRN 682.9 CELLULITIS AND ABSCESS OF UNSPECIFIED SITES 05/26/2008 BARBER YO APRN 782.3 soft tissue swelling (non-joint) [Sx] 05/26/2008 682.9 CELLULITIS AND ABSCESS OF UNSPECIFIED SITES 05/26/2008 782.3 soft tissue swelling (non-joint) [Sx] 05/26/2008 682.9 CELLULITIS AND ABSCESS OF UNSPECIFIED SITES 05/26/2008 782.3 soft tissue swelling (non-joint) [Sx] 05/26/2008 682.9 CELLULITIS AND ABSCESS OF UNSPECIFIED SITES 05/26/2008 782.3 soft tissue swelling (non-joint) [Sx] 05/26/2008 BARBER YO APRN 682.9 CELLULITIS AND ABSCESS OF UNSPECIFIED SITES 05/26/2008 BARBER YO APRN 782.3 soft tissue swelling (non-joint) [Sx] 05/26/2008 682.9 CELLULITIS AND ABSCESS OF UNSPECIFIED SITES 05/26/2008 782.3 soft tissue swelling (non-joint) [Sx] 05/26/2008 682.9 CELLULITIS AND ABSCESS OF UNSPECIFIED SITES 05/26/2008 782.3 soft tissue swelling (non-joint) [Sx] 05/26/2008 682.9 CELLULITIS AND ABSCESS OF UNSPECIFIED SITES 05/26/2008 782.3 soft tissue swelling (non-joint) [Sx] 05/26/2008 682.9 CELLULITIS AND ABSCESS OF UNSPECIFIED SITES 05/26/2008 782.3 soft tissue swelling (non-joint) [Sx] 05/26/2008 682.9 CELLULITIS AND ABSCESS OF UNSPECIFIED SITES 05/26/2008 782.3 soft tissue swelling (non-joint) [Sx] 05/26/2008 682.9 CELLULITIS AND ABSCESS OF UNSPECIFIED SITES 05/26/2008 782.3 soft tissue swelling (non-joint) [Sx] 05/26/2008 DONALDSON CASHERO CERTIFIED MEDICINE AIDE, SABINA N 682.9 CELLULITIS AND ABSCESS OF UNSPECIFIED SITES 05/26/2008 DONALDSON CASHERO CERTIFIED MEDICINE AIDE, SABINA N 782.3 soft tissue swelling (non-joint) [Sx] 05/26/2008 AVILA DO, AILYN K 682.9 CELLULITIS AND ABSCESS OF UNSPECIFIED SITES 05/26/2008 AVILA DO, AILYN K 782.3 soft tissue swelling (non-joint) [Sx] 05/26/2008 DONALDSON CASHERO CERTIFIED MEDICINE AIDE, SABINA N 682.9 CELLULITIS AND ABSCESS OF UNSPECIFIED SITES 05/26/2008 DONALDSON CASHERO CERTIFIED MEDICINE AIDE, SABINA N 782.3 soft tissue swelling (non-joint) [Sx] 05/26/2008 DONALDSON CASHERO CERTIFIED MEDICINE AIDE, SABINA N 682.9 CELLULITIS AND ABSCESS OF UNSPECIFIED SITES 05/26/2008 DONALDSON CASHERO CERTIFIED MEDICINE AIDE, SABINA N 782.3 soft tissue swelling (non-joint) [Sx] 05/26/2008 DONALDSON CASHERO CERTIFIED MEDICINE AIDE, SABINA N 682.9 CELLULITIS AND ABSCESS OF UNSPECIFIED SITES 05/26/2008 DONALDSON CASHERO CERTIFIED MEDICINE AIDE, SABINA N 782.3 soft tissue swelling (non-joint) [Sx] 05/26/2008 AVILA DO, AILYN K 682.9 CELLULITIS AND ABSCESS OF UNSPECIFIED SITES 05/26/2008 AVILA DO, AILYN K 782.3 soft tissue swelling (non-joint) [Sx] 05/26/2008 DONALDSON CASHERO CERTIFIED MEDICINE AIDE, SABINA N 682.9 CELLULITIS AND ABSCESS OF UNSPECIFIED SITES 05/26/2008 DONALDSON CASHERO CERTIFIED MEDICINE AIDE, SABINA N 782.3 soft tissue swelling (non-joint) [Sx] 05/26/2008 DONALDSON CASHERO CERTIFIED MEDICINE AIDE, SABINA N 682.9 CELLULITIS AND ABSCESS OF UNSPECIFIED SITES 05/26/2008 DONALDSON CASHERO CERTIFIED MEDICINE AIDE, SABINA N 782.3 soft tissue swelling (non-joint) [Sx] 05/26/2008 AVILA DO, AILYN K 682.9 CELLULITIS AND ABSCESS OF UNSPECIFIED SITES 05/26/2008 AVILA DO AILYN K 782.3 soft tissue swelling (non-joint) [Sx] 05/26/2008 DONALDSON CASHERO CERTIFIED MEDICINE AIDE, SABINA N 682.9 CELLULITIS AND ABSCESS OF UNSPECIFIED SITES 05/26/2008 DONALDSON CASHERO CERTIFIED MEDICINE AIDE, SABINA N 782.3 soft tissue swelling (non-joint) [Sx] 05/26/2008 SHELBI DPM, MCKENZIE 682.9 CELLULITIS AND ABSCESS OF UNSPECIFIED SITES 05/26/2008 SHELBI DPM, MCKENZIE 782.3 soft tissue swelling (non-joint) [Sx] 05/26/2008 DONALDSON CASHERO CERTIFIED MEDICINE AIDE, SABINA N 682.9 CELLULITIS AND ABSCESS OF UNSPECIFIED SITES 05/26/2008 DONALDSON CASHERO CERTIFIED MEDICINE AIDE, SABINA N 782.3 soft tissue swelling (non-joint) [Sx] 05/26/2008 DONALDSON CASHERO CERTIFIED MEDICINE AIDE, SABINA N 682.9 CELLULITIS AND ABSCESS OF UNSPECIFIED SITES 05/26/2008 DONALDSON CASHERO CERTIFIED MEDICINE AIDE, SABINA N 782.3 soft tissue swelling (non-joint) [Sx] 05/26/2008 DONALDSON CASHERO CERTIFIED MEDICINE AIDE, SABINA N 682.9 CELLULITIS AND ABSCESS OF UNSPECIFIED SITES 05/26/2008 DONALDSON CASHERO CERTIFIED MEDICINE AIDE, SABINA N 782.3 soft tissue swelling (non-joint) [Sx] 05/26/2008 DONALDSON CASHERO CERTIFIED MEDICINE AIDE, SABINA N 682.9 CELLULITIS AND ABSCESS OF UNSPECIFIED SITES 05/26/2008 DONALDSON CASHERO CERTIFIED MEDICINE AIDE, SABINA N 782.3 soft tissue swelling (non-joint) [Sx] 03/31/2009 BARBER YO APRN 788.42 frequent, full-bladder emptying (polyuria) 03/31/2009 788.42 frequent, full-bladder emptying (polyuria) 03/31/2009 788.42 frequent, full-bladder emptying (polyuria) 03/31/2009 788.42 frequent, full-bladder emptying (polyuria) 03/31/2009 BARBER YO APRN 788.42 frequent, full-bladder emptying (polyuria) 03/31/2009 788.42 frequent, full-bladder emptying (polyuria) 03/31/2009 788.42 frequent, full-bladder emptying (polyuria) 03/31/2009 788.42 frequent, full-bladder emptying (polyuria) 03/31/2009 788.42 frequent, full-bladder emptying (polyuria) 03/31/2009 788.42 frequent, full-bladder emptying (polyuria) 03/31/2009 788.42 frequent, full-bladder emptying (polyuria) 03/31/2009 DONALDSON CASHERO CERTIFIED MEDICINE AIDE, SABINA N 788.42 frequent, full-bladder emptying (polyuria) 03/31/2009 AILYN AVILA DO K 788.42 frequent, full-bladder emptying (polyuria) 03/31/2009 DONALDSON CASHERO CERTIFIED MEDICINE AIDE, SABINA N 788.42 frequent, full-bladder emptying (polyuria) 03/31/2009 DONALDSON CASHERO CERTIFIED MEDICINE AIDE, SABINA N 788.42 frequent, full-bladder emptying (polyuria) 03/31/2009 DONALDSON CASHERO CERTIFIED MEDICINE AIDE, SABINA N 788.42 frequent, full-bladder emptying (polyuria) 03/31/2009 AVILA LA AVILAA K 788.42 frequent, full-bladder emptying (polyuria) 03/31/2009 DONALDSON CASHERO CERTIFIED MEDICINE AIDE, SABINA N 788.42 frequent, full-bladder emptying (polyuria) 03/31/2009 DONALDSON CASHERO CERTIFIED MEDICINE AIDE, SABINA N 788.42 frequent, full-bladder emptying (polyuria) 03/31/2009 AVILA DO, AILYN K 788.42 frequent, full-bladder emptying (polyuria) 03/31/2009 DONALDSON CASHERO CERTIFIED MEDICINE AIDE, SABINA N 788.42 frequent, full-bladder emptying (polyuria) 03/31/2009 SHELBI DPM, MCKENZIE 788.42 frequent, full-bladder emptying (polyuria) 03/31/2009 DONALDSON CASHERO CERTIFIED MEDICINE AIDE, SABINA N 788.42 frequent, full-bladder emptying (polyuria) 03/31/2009 DONALDSON CASHERO CERTIFIED MEDICINE AIDE, SABINA N 788.42 frequent, full-bladder emptying (polyuria) 03/31/2009 DONALDSON CASHERO CERTIFIED MEDICINE AIDE, SABINA N 788.42 frequent, full-bladder emptying (polyuria) 03/31/2009 DONALDSON CASHERO CERTIFIED MEDICINE AIDE, SABINA N 788.42 frequent, full-bladder emptying (polyuria) 04/28/2009 BARBER YO APRN 486 PNEUMONIA UNSPECIFIED 04/28/2009 486 PNEUMONIA UNSPECIFIED 04/28/2009 486 PNEUMONIA UNSPECIFIED 04/28/2009 486 PNEUMONIA UNSPECIFIED 04/28/2009 BARBER YO APRN 486 PNEUMONIA UNSPECIFIED 04/28/2009 486 PNEUMONIA UNSPECIFIED 04/28/2009 486 PNEUMONIA UNSPECIFIED 04/28/2009 486 PNEUMONIA UNSPECIFIED 04/28/2009 486 PNEUMONIA UNSPECIFIED 04/28/2009 486 PNEUMONIA UNSPECIFIED 04/28/2009 486 PNEUMONIA UNSPECIFIED 04/28/2009 DONALDSON CASHERO CERTIFIED MEDICINE AIDE, SABINA N 486 PNEUMONIA UNSPECIFIED 04/28/2009 AVILA DO, AILYN K 486 PNEUMONIA UNSPECIFIED 04/28/2009 DONALDSON CASHERO CERTIFIED MEDICINE AIDE, SABINA N 486 PNEUMONIA UNSPECIFIED 04/28/2009 DONALDSON CASHERO CERTIFIED MEDICINE AIDE, SABINA N 486 PNEUMONIA UNSPECIFIED 04/28/2009 DONALDSON CASHERO CERTIFIED MEDICINE AIDE, SABINA N 486 PNEUMONIA UNSPECIFIED 04/28/2009 AVILA DO, AILYN K 486 PNEUMONIA UNSPECIFIED 04/28/2009 DONALDSON CASHERO CERTIFIED MEDICINE AIDE, SABINA N 486 PNEUMONIA UNSPECIFIED 04/28/2009 DONALDSON CASHERO CERTIFIED MEDICINE AIDE, SABINA N 486 PNEUMONIA UNSPECIFIED 04/28/2009 AVILA DO, AILYN K 486 PNEUMONIA UNSPECIFIED 04/28/2009 DONALDSON CASHERO CERTIFIED MEDICINE AIDE, SABINA N 486 PNEUMONIA UNSPECIFIED 04/28/2009 SHELBI DPM, MCKENZIE 486 PNEUMONIA UNSPECIFIED 04/28/2009 DONALDSON CASHERO CERTIFIED MEDICINE AIDE, SABINA N 486 PNEUMONIA UNSPECIFIED 04/28/2009 DONALDSON CASHERO CERTIFIED MEDICINE AIDE, SABINA N 486 PNEUMONIA UNSPECIFIED 04/28/2009 DONALSDON CASHERO CERTIFIED MEDICINE AIDE, SABINA N 486 PNEUMONIA UNSPECIFIED 04/28/2009 DONALDSON CASHERO CERTIFIED MEDICINE AIDE, SABINA N 486 PNEUMONIA UNSPECIFIED 02/27/2010 BARBER YO APRN 555.9 REGIONAL ENTERITIS OF UNSPECIFIED SITE 02/27/2010 555.9 REGIONAL ENTERITIS OF UNSPECIFIED SITE 02/27/2010 555.9 REGIONAL ENTERITIS OF UNSPECIFIED SITE 02/27/2010 555.9 REGIONAL ENTERITIS OF UNSPECIFIED SITE 02/27/2010 BARBER YO APRN 555.9 REGIONAL ENTERITIS OF UNSPECIFIED SITE 02/27/2010 555.9 REGIONAL ENTERITIS OF UNSPECIFIED SITE 02/27/2010 555.9 REGIONAL ENTERITIS OF UNSPECIFIED SITE 02/27/2010 555.9 REGIONAL ENTERITIS OF UNSPECIFIED SITE 02/27/2010 555.9 REGIONAL ENTERITIS OF UNSPECIFIED SITE 02/27/2010 555.9 REGIONAL ENTERITIS OF UNSPECIFIED SITE 02/27/2010 555.9 REGIONAL ENTERITIS OF UNSPECIFIED SITE 02/27/2010 DONALDSON CASHERO CERTIFIED MEDICINE AIDE, SABINA N 555.9 REGIONAL ENTERITIS OF UNSPECIFIED SITE 02/27/2010 AVILA DO, AILYN K 555.9 REGIONAL ENTERITIS OF UNSPECIFIED SITE 02/27/2010 DONALDSON CASHERO CERTIFIED MEDICINE AIDE, SABINA N 555.9 REGIONAL ENTERITIS OF UNSPECIFIED SITE 02/27/2010 DONALDSON CASHERO CERTIFIED MEDICINE AIDE, SABINA N 555.9 REGIONAL ENTERITIS OF UNSPECIFIED SITE 02/27/2010 DONALDSON CASHERO CERTIFIED MEDICINE AIDE, SABINA N 555.9 REGIONAL ENTERITIS OF UNSPECIFIED SITE 02/27/2010 AVILA DO, AILYN K 555.9 REGIONAL ENTERITIS OF UNSPECIFIED SITE 02/27/2010 DONALDSON CASHERO CERTIFIED MEDICINE AIDE, SABINA N 555.9 REGIONAL ENTERITIS OF UNSPECIFIED SITE 02/27/2010 DONALDSON CASHERO CERTIFIED MEDICINE AIDE, SABINA N 555.9 REGIONAL ENTERITIS OF UNSPECIFIED SITE 02/27/2010 AVILA DO, AILYN K 555.9 REGIONAL ENTERITIS OF UNSPECIFIED SITE 02/27/2010 DONALDSON CASHERO CERTIFIED MEDICINE AIDE, SABINA N 555.9 REGIONAL ENTERITIS OF UNSPECIFIED SITE 02/27/2010 SHELBI DPM, MCKENZIE 555.9 REGIONAL ENTERITIS OF UNSPECIFIED SITE 02/27/2010 DONALDSON CASHERO CERTIFIED MEDICINE AIDE, SABINA N 555.9 REGIONAL ENTERITIS OF UNSPECIFIED SITE 02/27/2010 DONALDSON CASHERO CERTIFIED MEDICINE AIDE, SABINA N 555.9 REGIONAL ENTERITIS OF UNSPECIFIED SITE 02/27/2010 DONALDSON CASHERO CERTIFIED MEDICINE AIDE, SABINA N 555.9 REGIONAL ENTERITIS OF UNSPECIFIED SITE 02/27/2010 DONALDSON CASHERO CERTIFIED MEDICINE AIDE, SABINA N 555.9 REGIONAL ENTERITIS OF UNSPECIFIED SITE 01/20/2011 Ot 250.60 01/20/2011 Ot 357.2 01/20/2011 Ot 789.06 01/20/2011 Ot V58.69 01/22/2011 BARBER YO APRN 789.07 ABDOMINAL PAIN GENERALIZED 01/22/2011 789.07 ABDOMINAL PAIN GENERALIZED 01/22/2011 789.07 ABDOMINAL PAIN GENERALIZED 01/22/2011 789.07 ABDOMINAL PAIN GENERALIZED 01/22/2011 BARBER YO APRN 789.07 ABDOMINAL PAIN GENERALIZED 01/22/2011 789.07 ABDOMINAL PAIN GENERALIZED 01/22/2011 789.07 ABDOMINAL PAIN GENERALIZED 01/22/2011 789.07 ABDOMINAL PAIN GENERALIZED 01/22/2011 789.07 ABDOMINAL PAIN GENERALIZED 01/22/2011 789.07 ABDOMINAL PAIN GENERALIZED 01/22/2011 789.07 ABDOMINAL PAIN GENERALIZED 01/22/2011 DONALDSON CASHERO CERTIFIED MEDICINE AIDE, SABINA N 789.07 ABDOMINAL PAIN GENERALIZED 01/22/2011 [place]IN DOAILYN K 789.07 ABDOMINAL PAIN GENERALIZED 01/22/2011 DONALDSON CASHERO CERTIFIED MEDICINE AIDEKHRIS FarleyCY N 789.07 ABDOMINAL PAIN GENERALIZED 01/22/2011 DONALDSON CASHERO CERTIFIED MEDICINE AIDE, SABINA N 789.07 ABDOMINAL PAIN GENERALIZED 01/22/2011 DONALDSON CASHERO CERTIFIED MEDICINE AIDE, SABINA N 789.07 ABDOMINAL PAIN GENERALIZED 01/22/2011 AVILA DOLAA K 789.07 ABDOMINAL PAIN GENERALIZED 01/22/2011 DONALDSON CASHERO CERTIFIED MEDICINE AIDE, SABINA N 789.07 ABDOMINAL PAIN GENERALIZED 01/22/2011 DONALDSON CASHERO CERTIFIED MEDICINE AIDE, SABINA N 789.07 ABDOMINAL PAIN GENERALIZED 01/22/2011 AVILA DOAILYN K 789.07 ABDOMINAL PAIN GENERALIZED 01/22/2011 DONALDSON CASHERO CERTIFIED MEDICINE AIDE, SABINA N 789.07 ABDOMINAL PAIN GENERALIZED 01/22/2011 MCKENZIE PRESCOTT DPM 789.07 ABDOMINAL PAIN GENERALIZED 01/22/2011 DONALDSON CASHERO CERTIFIED MEDICINE AIDE, SABINA N 789.07 ABDOMINAL PAIN GENERALIZED 01/22/2011 DONALDSON CASHERO CERTIFIED MEDICINE AIDE, SABINA N 789.07 ABDOMINAL PAIN GENERALIZED 01/22/2011 DONALDSON CASHERO CERTIFIED MEDICINE AIDE, SABINA N 789.07 ABDOMINAL PAIN GENERALIZED 01/22/2011 DONALDSON CASHERO CERTIFIED MEDICINE AIDE, SABINA N 789.07 ABDOMINAL PAIN GENERALIZED 03/19/2011 BARBER YO APRN V04.81 FLU DX (MEDICARE ONLY) 03/19/2011 V04.81 FLU DX ( MEDICARE ONLY) 03/19/2011 V04.81 FLU DX ( MEDICARE ONLY) 03/19/2011 V04.81 FLU DX ( MEDICARE ONLY) 03/19/2011 BARBER YO APRN V04.81 FLU DX (MEDICARE ONLY) 03/19/2011 V04.81 FLU DX ( MEDICARE ONLY) 03/19/2011 V04.81 FLU DX ( MEDICARE ONLY) 03/19/2011 V04.81 FLU DX ( MEDICARE ONLY) 03/19/2011 V04.81 FLU DX ( MEDICARE ONLY) 03/19/2011 V04.81 FLU DX ( MEDICARE ONLY) 03/19/2011 V04.81 FLU DX ( MEDICARE ONLY) 03/19/2011 DONALDSON CASHERO CERTIFIED MEDICINE AIDE, SABINA N V04.81 FLU DX (MEDICARE ONLY) 03/19/2011 AILYN AVILA DO V04.81 FLU DX (MEDICARE ONLY) 03/19/2011 DONALDSON CASHERO CERTIFIED MEDICINE AIDE, SABINA N V04.81 FLU DX (MEDICARE ONLY) 03/19/2011 DONALDSON CASHERO CERTIFIED MEDICINE AIDE, SABINA N V04.81 FLU DX (MEDICARE ONLY) 03/19/2011 DONALDSON CASHERO CERTIFIED MEDICINE AIDE, SABINA N V04.81 FLU DX (MEDICARE ONLY) 03/19/2011 AILYN AVILA DO V04.81 FLU DX (MEDICARE ONLY) 03/19/2011 DONALDSON CASHERO CERTIFIED MEDICINE AIDE, SABINA N V04.81 FLU DX (MEDICARE ONLY) 03/19/2011 DONALDSON CASHERO CERTIFIED MEDICINE AIDE, SABINA N V04.81 FLU DX (MEDICARE ONLY) 03/19/2011 AILYN AVILA DO V04.81 FLU DX (MEDICARE ONLY) 03/19/2011 DONALDSON CASHERO CERTIFIED MEDICINE AIDE, SABINA N V04.81 FLU DX (MEDICARE ONLY) 03/19/2011 MCKENZIE PRESCOTT DPM V04.81 FLU DX (MEDICARE ONLY) 03/19/2011 DONALDSON CASHERO CERTIFIED MEDICINE AIDE, SABINA N V04.81 FLU DX (MEDICARE ONLY) 03/19/2011 DONALDSON CASHERO CERTIFIED MEDICINE AIDE, SABINA N V04.81 FLU DX (MEDICARE ONLY) 03/19/2011 DONALDSON CASHERO CERTIFIED MEDICINE AIDE, SABINA N V04.81 FLU DX (MEDICARE ONLY) 03/19/2011 DONALDSON CASHERO CERTIFIED MEDICINE AIDE, SABINA N V04.81 FLU DX (MEDICARE ONLY) 12/11/2011 BARBER YO APRN 682.7 SKIN ABSCESS OF THE HEEL 12/11/2011 BARBER YO APRN 707.00 CHRONIC CUTANEOUS ULCER DECUBITUS 12/11/2011 682.7 SKIN ABSCESS OF THE HEEL 12/11/2011 707.00 CHRONIC CUTANEOUS ULCER DECUBITUS 12/11/2011 682.7 SKIN ABSCESS OF THE HEEL 12/11/2011 707.00 CHRONIC CUTANEOUS ULCER DECUBITUS 12/11/2011 682.7 SKIN ABSCESS OF THE HEEL 12/11/2011 707.00 CHRONIC CUTANEOUS ULCER DECUBITUS 12/11/2011 BARBER YO APRN 682.7 SKIN ABSCESS OF THE HEEL 12/11/2011 BARBER YO APRN 707.00 CHRONIC CUTANEOUS ULCER DECUBITUS 12/11/2011 682.7 SKIN ABSCESS OF THE HEEL 12/11/2011 707.00 CHRONIC CUTANEOUS ULCER DECUBITUS 12/11/2011 682.7 SKIN ABSCESS OF THE HEEL 12/11/2011 707.00 CHRONIC CUTANEOUS ULCER DECUBITUS 12/11/2011 682.7 SKIN ABSCESS OF THE HEEL 12/11/2011 707.00 CHRONIC CUTANEOUS ULCER DECUBITUS 12/11/2011 682.7 SKIN ABSCESS OF THE HEEL 12/11/2011 707.00 CHRONIC CUTANEOUS ULCER DECUBITUS 12/11/2011 682.7 SKIN ABSCESS OF THE HEEL 12/11/2011 707.00 CHRONIC CUTANEOUS ULCER DECUBITUS 12/11/2011 682.7 SKIN ABSCESS OF THE HEEL 12/11/2011 707.00 CHRONIC CUTANEOUS ULCER DECUBITUS 12/11/2011 DONALDSON CASHERO CERTIFIED MEDICINE AIDE, SABINA N 682.7 SKIN ABSCESS OF THE HEEL 12/11/2011 DONALDSON CASHERO CERTIFIED MEDICINE AIDE, SABINA N 707.00 CHRONIC CUTANEOUS ULCER DECUBITUS 12/11/2011 AVILA DO, AILYN K 682.7 SKIN ABSCESS OF THE HEEL 12/11/2011 AVILA DO, AILYN K 707.00 CHRONIC CUTANEOUS ULCER DECUBITUS 12/11/2011 DONALDSON INESERO CERTIFIED MEDICINE AIDE, SABINA N 682.7 SKIN ABSCESS OF THE HEEL 12/11/2011 DONALDSON CASHERO CERTIFIED MEDICINE AIDE, SABINA N 707.00 CHRONIC CUTANEOUS ULCER DECUBITUS 12/11/2011 DONALDSON CASHERO CERTIFIED MEDICINE AIDE, SABINA N 682.7 SKIN ABSCESS OF THE HEEL 12/11/2011 DONALDSON CASHERO CERTIFIED MEDICINE AIDE, SABINA N 707.00 CHRONIC CUTANEOUS ULCER DECUBITUS 12/11/2011 DONALDSON CASHERO CERTIFIED MEDICINE AIDE, SABINA N 682.7 SKIN ABSCESS OF THE HEEL 12/11/2011 DONALDSON VALENTIN CERTIFIED MEDICINE AIDE, SABINA N 707.00 CHRONIC CUTANEOUS ULCER DECUBITUS 12/11/2011 AVILA DO, AILYN K 682.7 SKIN ABSCESS OF THE HEEL 12/11/2011 AVILA DO, AILYN K 707.00 CHRONIC CUTANEOUS ULCER DECUBITUS 12/11/2011 DONALDSON CASHERO CERTIFIED MEDICINE AIDE, SABINA N 682.7 SKIN ABSCESS OF THE HEEL 12/11/2011 DONALDSON CASHERO CERTIFIED MEDICINE AIDE, SABINA N 707.00 CHRONIC CUTANEOUS ULCER DECUBITUS 12/11/2011 DONALDSON CASHERO CERTIFIED MEDICINE AIDE, SABINA N 682.7 SKIN ABSCESS OF THE HEEL 12/11/2011 DONALDSON CASHERO CERTIFIED MEDICINE AIDE, SABINA N 707.00 CHRONIC CUTANEOUS ULCER DECUBITUS 12/11/2011 AVILA DO, AILYN K 682.7 SKIN ABSCESS OF THE HEEL 12/11/2011 AVILA DO, AILYN K 707.00 CHRONIC CUTANEOUS ULCER DECUBITUS 12/11/2011 DONALDSON CASHERO CERTIFIED MEDICINE AIDE, SABINA N 682.7 SKIN ABSCESS OF THE HEEL 12/11/2011 DONALDSON CASHERO CERTIFIED MEDICINE AIDE, SABINA N 707.00 CHRONIC CUTANEOUS ULCER DECUBITUS 12/11/2011 SHELBI DPM, MCKENZIE 682.7 SKIN ABSCESS OF THE HEEL 12/11/2011 SHELBI DPM, MCKENZIE 707.00 CHRONIC CUTANEOUS ULCER DECUBITUS 12/11/2011 DONALDSON CASHERO CERTIFIED MEDICINE AIDE, SABINA N 682.7 SKIN ABSCESS OF THE HEEL 12/11/2011 DONALDSON CASHERO CERTIFIED MEDICINE AIDE, SABINA N 707.00 CHRONIC CUTANEOUS ULCER DECUBITUS 12/11/2011 DONALDSON CASHERO CERTIFIED MEDICINE AIDE, SABINA N 682.7 SKIN ABSCESS OF THE HEEL 12/11/2011 DONALDSON CASHERO CERTIFIED MEDICINE AIDE, SABINA N 707.00 CHRONIC CUTANEOUS ULCER DECUBITUS 12/11/2011 DONALDSON CASHERO CERTIFIED MEDICINE AIDE, SABINA N 682.7 SKIN ABSCESS OF THE HEEL 12/11/2011 DONALDSON CASHERO CERTIFIED MEDICINE AIDE, SABINA N 707.00 CHRONIC CUTANEOUS ULCER DECUBITUS 12/11/2011 DONALDSON CASHERO CERTIFIED MEDICINE AIDE, SABINA N 682.7 SKIN ABSCESS OF THE HEEL 12/11/2011 DONALDSON CASHERO CERTIFIED MEDICINE AIDE, SABINA N 707.00 CHRONIC CUTANEOUS ULCER DECUBITUS 12/18/2011 BARBER YO APRN 682.9 Cellulitis And Abscess Of Unspecified Sites 12/18/2011 BARBER YO APRN V58.31 WOUND DRESSING 12/18/2011 682.9 Cellulitis And Abscess Of Unspecified Sites 12/18/2011 V58.31 WOUND DRESSING 12/18/2011 682.9 Cellulitis And Abscess Of Unspecified Sites 12/18/2011 V58.31 WOUND DRESSING 12/18/2011 682.9 Cellulitis And Abscess Of Unspecified Sites 12/18/2011 V58.31 WOUND DRESSING 12/18/2011 BARBER YO APRN 682.9 Cellulitis And Abscess Of Unspecified Sites 12/18/2011 BARBER YO APRN V58.31 WOUND DRESSING 12/18/2011 682.9 Cellulitis And Abscess Of Unspecified Sites 12/18/2011 V58.31 WOUND DRESSING 12/18/2011 682.9 Cellulitis And Abscess Of Unspecified Sites 12/18/2011 V58.31 WOUND DRESSING 12/18/2011 682.9 Cellulitis And Abscess Of Unspecified Sites 12/18/2011 V58.31 WOUND DRESSING 12/18/2011 682.9 Cellulitis And Abscess Of Unspecified Sites 12/18/2011 V58.31 WOUND DRESSING 12/18/2011 682.9 Cellulitis And Abscess Of Unspecified Sites 12/18/2011 V58.31 WOUND DRESSING 12/18/2011 682.9 Cellulitis And Abscess Of Unspecified Sites 12/18/2011 V58.31 WOUND DRESSING 12/18/2011 DONALDSON CASHERO CERTIFIED MEDICINE AIDE, SABINA N 682.9 Cellulitis And Abscess Of Unspecified Sites 12/18/2011 DONALDSON CASHERO CERTIFIED MEDICINE AIDE, SABINA N V58.31 WOUND DRESSING 12/18/2011 AVILA DO, AILYN K 682.9 Cellulitis And Abscess Of Unspecified Sites 12/18/2011 AVILA DO, AILYN K V58.31 WOUND DRESSING 12/18/2011 DONALDSON CASHERO CERTIFIED MEDICINE AIDE, SABINA N 682.9 Cellulitis And Abscess Of Unspecified Sites 12/18/2011 DONALDSON CASHERO CERTIFIED MEDICINE AIDE, SABINA N V58.31 WOUND DRESSING 12/18/2011 DONALDSON CASHERO CERTIFIED MEDICINE AIDE, SABINA N 682.9 Cellulitis And Abscess Of Unspecified Sites 12/18/2011 DONALDSON CASHERO CERTIFIED MEDICINE AIDE, SABINA N V58.31 WOUND DRESSING 12/18/2011 DONALDSON CASHERO CERTIFIED MEDICINE AIDE, SABINA N 682.9 Cellulitis And Abscess Of Unspecified Sites 12/18/2011 DONALDSON CASHERO CERTIFIED MEDICINE AIDE, SABINA N V58.31 WOUND DRESSING 12/18/2011 AVILA DO, AILYN K 682.9 Cellulitis And Abscess Of Unspecified Sites 12/18/2011 AVILA DO, AILYN K V58.31 WOUND DRESSING 12/18/2011 DONALDSON CASHERO CERTIFIED MEDICINE AIDE, SABINA N 682.9 Cellulitis And Abscess Of Unspecified Sites 12/18/2011 DONALDSON CASHERO CERTIFIED MEDICINE AIDE, SABINA N V58.31 WOUND DRESSING 12/18/2011 DONALDSON CASHERO CERTIFIED MEDICINE AIDE, SABINA N 682.9 Cellulitis And Abscess Of Unspecified Sites 12/18/2011 DONALDSON CASHERO CERTIFIED MEDICINE AIDE, SABINA N V58.31 WOUND DRESSING 12/18/2011 AVILA DO, AILYN K 682.9 Cellulitis And Abscess Of Unspecified Sites 12/18/2011 AVILA DO, AILYN K V58.31 WOUND DRESSING 12/18/2011 DONALDSON CASHERO CERTIFIED MEDICINE AIDE, SABINA N 682.9 Cellulitis And Abscess Of Unspecified Sites 12/18/2011 DONALDSON CASHERO CERTIFIED MEDICINE AIDE, SABINA N V58.31 WOUND DRESSING 12/18/2011 SHELBI DPM, MCKENZIE 682.9 Cellulitis And Abscess Of Unspecified Sites 12/18/2011 SHELBI DPM, MCKENZIE V58.31 WOUND DRESSING 12/18/2011 DONALDSON CASHERO CERTIFIED MEDICINE AIDE, SABINA N 682.9 Cellulitis And Abscess Of Unspecified Sites 12/18/2011 DONALDSON CASHERO CERTIFIED MEDICINE AIDE, SABINA N V58.31 WOUND DRESSING 12/18/2011 DONALDSON CASHERO CERTIFIED MEDICINE AIDE, SABINA N 682.9 Cellulitis And Abscess Of Unspecified Sites 12/18/2011 DONALDSON CASHERO CERTIFIED MEDICINE AIDE, SABINA N V58.31 WOUND DRESSING 12/18/2011 DONALDSON CASHERO CERTIFIED MEDICINE AIDE, SABINA N 682.9 Cellulitis And Abscess Of Unspecified Sites 12/18/2011 DONALDSON CASHERO CERTIFIED MEDICINE AIDE, SABINA N V58.31 WOUND DRESSING 12/18/2011 DONALDSON CASHERO CERTIFIED MEDICINE AIDE, SABINA N 682.9 Cellulitis And Abscess Of Unspecified Sites 12/18/2011 DONALDSON CASHERO CERTIFIED MEDICINE AIDE, SABINA N V58.31 WOUND DRESSING 01/08/2012 BARBER YO APRN 593.9 RENAL INSUFFICIENCY 01/08/2012 593.9 RENAL INSUFFICIENCY 01/08/2012 593.9 RENAL INSUFFICIENCY 01/08/2012 593.9 RENAL INSUFFICIENCY 01/08/2012 BARBER YO APRN 593.9 RENAL INSUFFICIENCY 01/08/2012 593.9 RENAL INSUFFICIENCY 01/08/2012 593.9 RENAL INSUFFICIENCY 01/08/2012 593.9 RENAL INSUFFICIENCY 01/08/2012 593.9 RENAL INSUFFICIENCY 01/08/2012 593.9 RENAL INSUFFICIENCY 01/08/2012 593.9 RENAL INSUFFICIENCY 01/08/2012 DONALDSON CASHERO CERTIFIED MEDICINE AIDE, SABINA N 593.9 RENAL INSUFFICIENCY 01/08/2012 AVILA DO, AILYN K 593.9 RENAL INSUFFICIENCY 01/08/2012 DONALDSON CASHERO CERTIFIED MEDICINE AIDE, SABINA N 593.9 RENAL INSUFFICIENCY 01/08/2012 DONALDSON CASHERO CERTIFIED MEDICINE AIDE, SABINA N 593.9 RENAL INSUFFICIENCY 01/08/2012 DONALDSON CASHERO CERTIFIED MEDICINE AIDE, SABINA N 593.9 RENAL INSUFFICIENCY 01/08/2012 AVILA DO, AILYN K 593.9 RENAL INSUFFICIENCY 01/08/2012 DONALDSON CASHERO CERTIFIED MEDICINE AIDE, SABINA N 593.9 RENAL INSUFFICIENCY 01/08/2012 DONALDSON CASHERO CERTIFIED MEDICINE AIDE, SABINA N 593.9 RENAL INSUFFICIENCY 01/08/2012 AILYN AVILA DO K 593.9 RENAL INSUFFICIENCY 01/08/2012 DONALDSON CASHERO CERTIFIED MEDICINE AIDE, SABINA N 593.9 RENAL INSUFFICIENCY 01/08/2012 MCKENZIE PRESCOTT DPM 593.9 RENAL INSUFFICIENCY 01/08/2012 DONALDSON CASHERO CERTIFIED MEDICINE AIDE, SABINA N 593.9 RENAL INSUFFICIENCY 01/08/2012 DONALDSON CASHERO CERTIFIED MEDICINE AIDE, SABINA N 593.9 RENAL INSUFFICIENCY 01/08/2012 DONALDSON CASHERO CERTIFIED MEDICINE AIDE, SABINA N 593.9 RENAL INSUFFICIENCY 01/08/2012 DONALDSON CASHERO CERTIFIED MEDICINE AIDE, SABINA N 593.9 RENAL INSUFFICIENCY 02/06/2012 Ot 250.00 DIAB FLAQUITA WO COMPL, TYPE II OR UNSPEC TY 02/06/2012 Ot 305.1 TOBACCO USE DISORDER 02/06/2012 Ot 311 DEPRESSIVE DISORDER NEC 02/06/2012 Ot 574.00 CHOLELITH W AC CHOLECYST 02/06/2012 Ot 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 04/17/2012 BARBER YO APRN 724.2 BACK PAIN, LOWER 04/17/2012 BARBER YO APRN V03.82 PCV-13 (PREVNAR) DX 04/17/2012 724.2 BACK PAIN, LOWER 04/17/2012 V03.82 PCV-13 ( PREVNAR) DX 04/17/2012 724.2 BACK PAIN, LOWER 04/17/2012 V03.82 PCV-13 ( PREVNAR) DX 04/17/2012 724.2 BACK PAIN, LOWER 04/17/2012 V03.82 PCV-13 ( PREVNAR) DX 04/17/2012 BARBER YO APRN 724.2 BACK PAIN, LOWER 04/17/2012 BARBER YO APRN V03.82 PCV-13 (PREVNAR) DX 04/17/2012 724.2 BACK PAIN, LOWER 04/17/2012 V03.82 PCV-13 ( PREVNAR) DX 04/17/2012 724.2 BACK PAIN, LOWER 04/17/2012 V03.82 PCV-13 ( PREVNAR) DX 04/17/2012 724.2 BACK PAIN, LOWER 04/17/2012 V03.82 PCV-13 ( PREVNAR) DX 04/17/2012 724.2 BACK PAIN, LOWER 04/17/2012 V03.82 PCV-13 ( PREVNAR) DX 04/17/2012 724.2 BACK PAIN, LOWER 04/17/2012 V03.82 PCV-13 ( PREVNAR) DX 04/17/2012 724.2 BACK PAIN, LOWER 04/17/2012 V03.82 PCV-13 ( PREVNAR) DX 04/17/2012 DONALDSON CASHERO CERTIFIED MEDICINE AIDE, SABINA N 724.2 BACK PAIN, LOWER 04/17/2012 DONALDSON CASHERO CERTIFIED MEDICINE AIDE, SABINA N V03.82 PCV-13 (PREVNAR) DX 04/17/2012 AVILA DO, AILYN K 724.2 BACK PAIN, LOWER 04/17/2012 AVLIA DO, AILYN K V03.82 PCV-13 (PREVNAR) DX 04/17/2012 DONALDSON CASHERO CERTIFIED MEDICINE AIDE, SABINA N 724.2 BACK PAIN, LOWER 04/17/2012 DONALDSON CASHERO CERTIFIED MEDICINE AIDE, SABINA N V03.82 PCV-13 (PREVNAR) DX 04/17/2012 DONALDSON CASHERO CERTIFIED MEDICINE AIDE, SABINA N 724.2 BACK PAIN, LOWER 04/17/2012 DONALDSON CASHERO CERTIFIED MEDICINE AIDE, SABINA N V03.82 PCV-13 (PREVNAR) DX 04/17/2012 DONALDSON CASHERO CERTIFIED MEDICINE AIDE, SABINA N 724.2 BACK PAIN, LOWER 04/17/2012 DONALDSON CASHERO CERTIFIED MEDICINE AIDE, SABINA N V03.82 PCV-13 (PREVNAR) DX 04/17/2012 AVILA DO, AILYN K 724.2 BACK PAIN, LOWER 04/17/2012 AVILA DO, AILYN K V03.82 PCV-13 (PREVNAR) DX 04/17/2012 DONALDSON CASHERO CERTIFIED MEDICINE AIDE, SABINA N 724.2 BACK PAIN, LOWER 04/17/2012 DONALDSON CASHERO CERTIFIED MEDICINE AIDE, SABINA N V03.82 PCV-13 (PREVNAR) DX 04/17/2012 DONALDSON CASHERO CERTIFIED MEDICINE AIDE, SABINA N 724.2 BACK PAIN, LOWER 04/17/2012 DONALDSON CASHERO CERTIFIED MEDICINE AIDE, SABINA N V03.82 PCV-13 (PREVNAR) DX 04/17/2012 AVILA DO, AILYN K 724.2 BACK PAIN, LOWER 04/17/2012 AVILA DO, AILYN K V03.82 PCV-13 (PREVNAR) DX 04/17/2012 DONALDSON CASHERO CERTIFIED MEDICINE AIDE, SABINA N 724.2 BACK PAIN, LOWER 04/17/2012 DONALDSON CASHERO CERTIFIED MEDICINE AIDE, SABINA N V03.82 PCV-13 (PREVNAR) DX 04/17/2012 SHELBI DPM, MCKENZIE 724.2 BACK PAIN, LOWER 04/17/2012 SHELBI DPM, MCKENZIE V03.82 PCV-13 (PREVNAR) DX 04/17/2012 DONALDSON CASHERO CERTIFIED MEDICINE AIDE, SABINA N 724.2 BACK PAIN, LOWER 04/17/2012 DONALDSON CASHERO CERTIFIED MEDICINE AIDE, SABINA N V03.82 PCV-13 (PREVNAR) DX 04/17/2012 DONALDSON CASHERO CERTIFIED MEDICINE AIDE, SABINA N 724.2 BACK PAIN, LOWER 04/17/2012 DONALDSON CASHERO CERTIFIED MEDICINE AIDE, SABINA N V03.82 PCV-13 (PREVNAR) DX 04/17/2012 DONALDSON CASHERO CERTIFIED MEDICINE AIDE, SABINA N 724.2 BACK PAIN, LOWER 04/17/2012 DONALDSON CASHERO CERTIFIED MEDICINE AIDE, SABINA N V03.82 PCV-13 (PREVNAR) DX 04/17/2012 DONALDSON CASHERO CERTIFIED MEDICINE AIDE, SABINA N 724.2 BACK PAIN, LOWER 04/17/2012 DONALDSON CASHERO CERTIFIED MEDICINE AIDE, SABINA N V03.82 PCV-13 (PREVNAR) DX 06/06/2012 Ot 466.0 ACUTE BRONCHITIS 06/06/2012 Ot 788.0 RENAL COLIC 06/06/2012 Ot 789.00 ABDOMINAL PAIN, UNSPECIFIED SITE 07/07/2012 Ot 564.00 UNSPEC CONSTIPATION 07/07/2012 Ot 789.09 ABDOMINAL PAIN, OTHER SPECIFIED SITE 07/08/2012 564.00 CONSTIPATION 07/08/2012 564.00 CONSTIPATION 07/08/2012 564.00 CONSTIPATION 07/08/2012 BARBER YO APRN 564.00 CONSTIPATION 07/08/2012 564.00 CONSTIPATION 07/08/2012 564.00 CONSTIPATION 07/08/2012 564.00 CONSTIPATION 07/08/2012 564.00 CONSTIPATION 07/08/2012 564.00 CONSTIPATION 07/08/2012 564.00 CONSTIPATION 07/08/2012 MENDOZA HANSON APRN, SABINA N 564.00 CONSTIPATION 07/08/2012 AVILA DO, AILYN K 564.00 CONSTIPATION 07/08/2012 DONALDSON CASHERO CERTIFIED MEDICINE AIDE, SABINA N 564.00 CONSTIPATION 07/08/2012 DONALDSON CASHERO CERTIFIED MEDICINE AIDE, SABINA N 564.00 CONSTIPATION 07/08/2012 DONALDSON CASHERO CERTIFIED MEDICINE AIDE, SABINA N 564.00 CONSTIPATION 07/08/2012 AVILA DO, AILYN K 564.00 CONSTIPATION 07/08/2012 DONALDSON CASHERO CERTIFIED MEDICINE AIDE, SABINA N 564.00 CONSTIPATION 07/08/2012 DONALDSON CASHERO CERTIFIED MEDICINE AIDE, SABINA N 564.00 CONSTIPATION 07/08/2012 AVILA DO, AILYN K 564.00 CONSTIPATION 07/08/2012 DONALDSON CASHERO CERTIFIED MEDICINE AIDE, SABINA N 564.00 CONSTIPATION 07/08/2012 SHELBI DPM, MCKENZIE 564.00 CONSTIPATION 07/08/2012 DONALDSON CASHERO CERTIFIED MEDICINE AIDE, SABINA N 564.00 CONSTIPATION 07/08/2012 DONALDSON CASHERO CERTIFIED MEDICINE AIDE, SABINA N 564.00 CONSTIPATION 07/08/2012 DONALDSON CASHERO CERTIFIED MEDICINE AIDE, SABINA N 564.00 CONSTIPATION 07/08/2012 DONALDSON CASHERO CERTIFIED MEDICINE AIDE, SABINA N 564.00 CONSTIPATION 07/23/2012 356.9 UNSPECIFIED IDIOPATHIC PERIPHERAL NEUROPATHY 07/23/2012 459.81 VENOUS ( PERIPHERAL) INSUFFICIENCY UNSPECIFIED 07/23/2012 600.00 HYPERTROPHY ( BENIGN) OF PROSTATE WITHOUT URINARY OBSTRUCTION AND OTHER LOWER URINARY TRACT SYMPTOMS (LUTS) 07/23/2012 788.41 URINARY FREQUENCY 07/23/2012 BARBER YO APRN 356.9 UNSPECIFIED IDIOPATHIC PERIPHERAL NEUROPATHY 07/23/2012 BARBER YO APRN 459.81 VENOUS (PERIPHERAL) INSUFFICIENCY UNSPECIFIED 07/23/2012 BARBER YO APRN 600.00 HYPERTROPHY (BENIGN) OF PROSTATE WITHOUT URINARY OBSTRUCTION AND OTHER LOWER URINARY TRACT SYMPTOMS (LUTS) 07/23/2012 BARBER YO APRN 788.41 URINARY FREQUENCY 07/23/2012 356.9 UNSPECIFIED IDIOPATHIC PERIPHERAL NEUROPATHY 07/23/2012 459.81 VENOUS ( PERIPHERAL) INSUFFICIENCY UNSPECIFIED 07/23/2012 600.00 HYPERTROPHY ( BENIGN) OF PROSTATE WITHOUT URINARY OBSTRUCTION AND OTHER LOWER URINARY TRACT SYMPTOMS (LUTS) 07/23/2012 788.41 URINARY FREQUENCY 07/23/2012 356.9 UNSPECIFIED IDIOPATHIC PERIPHERAL NEUROPATHY 07/23/2012 459.81 VENOUS ( PERIPHERAL) INSUFFICIENCY UNSPECIFIED 07/23/2012 600.00 HYPERTROPHY ( BENIGN) OF PROSTATE WITHOUT URINARY OBSTRUCTION AND OTHER LOWER URINARY TRACT SYMPTOMS (LUTS) 07/23/2012 788.41 URINARY FREQUENCY 07/23/2012 356.9 UNSPECIFIED IDIOPATHIC PERIPHERAL NEUROPATHY 07/23/2012 459.81 VENOUS ( PERIPHERAL) INSUFFICIENCY UNSPECIFIED 07/23/2012 600.00 HYPERTROPHY ( BENIGN) OF PROSTATE WITHOUT URINARY OBSTRUCTION AND OTHER LOWER URINARY TRACT SYMPTOMS (LUTS) 07/23/2012 788.41 URINARY FREQUENCY 07/23/2012 356.9 UNSPECIFIED IDIOPATHIC PERIPHERAL NEUROPATHY 07/23/2012 459.81 VENOUS ( PERIPHERAL) INSUFFICIENCY UNSPECIFIED 07/23/2012 600.00 HYPERTROPHY ( BENIGN) OF PROSTATE WITHOUT URINARY OBSTRUCTION AND OTHER LOWER URINARY TRACT SYMPTOMS (LUTS) 07/23/2012 788.41 URINARY FREQUENCY 07/23/2012 356.9 UNSPECIFIED IDIOPATHIC PERIPHERAL NEUROPATHY 07/23/2012 459.81 VENOUS ( PERIPHERAL) INSUFFICIENCY UNSPECIFIED 07/23/2012 600.00 HYPERTROPHY ( BENIGN) OF PROSTATE WITHOUT URINARY OBSTRUCTION AND OTHER LOWER URINARY TRACT SYMPTOMS (LUTS) 07/23/2012 788.41 URINARY FREQUENCY 07/23/2012 356.9 UNSPECIFIED IDIOPATHIC PERIPHERAL NEUROPATHY 07/23/2012 459.81 VENOUS ( PERIPHERAL) INSUFFICIENCY UNSPECIFIED 07/23/2012 600.00 HYPERTROPHY ( BENIGN) OF PROSTATE WITHOUT URINARY OBSTRUCTION AND OTHER LOWER URINARY TRACT SYMPTOMS (LUTS) 07/23/2012 788.41 URINARY FREQUENCY 07/23/2012 DONALDSON CASHKHRIS DUNBAR APRNCY N 356.9 UNSPECIFIED IDIOPATHIC PERIPHERAL NEUROPATHY 07/23/2012 DONALDSON CASHMANJINDER SCOTT SABINA N 459.81 VENOUS (PERIPHERAL) INSUFFICIENCY UNSPECIFIED 07/23/2012 DONALDSON CASHERO CERTIFIED MEDICINE AIDE, SABINA N 600.00 HYPERTROPHY (BENIGN) OF PROSTATE WITHOUT URINARY OBSTRUCTION AND OTHER LOWER URINARY TRACT SYMPTOMS (LUTS) 07/23/2012 DONALDSON CASHMANJINDER SCOTT SABINA N 788.41 URINARY FREQUENCY 07/23/2012 AUSTIN AVILA AILYN K 356.9 UNSPECIFIED IDIOPATHIC PERIPHERAL NEUROPATHY 07/23/2012 AUSTIN AVILA AILYN K 459.81 VENOUS (PERIPHERAL) INSUFFICIENCY UNSPECIFIED 07/23/2012 AUSTIN AVILA AILYN K 600.00 HYPERTROPHY (BENIGN) OF PROSTATE WITHOUT URINARY OBSTRUCTION AND OTHER LOWER URINARY TRACT SYMPTOMS (LUTS) 07/23/2012 AVILA DO, AILYN K 788.41 URINARY FREQUENCY 07/23/2012 DONALDSON CASHERO CERTIFIED MEDICINE AIDE, SABINA N 356.9 UNSPECIFIED IDIOPATHIC PERIPHERAL NEUROPATHY 07/23/2012 DONALDSON CASHERO CERTIFIED MEDICINE AIDE, SABINA N 459.81 VENOUS (PERIPHERAL) INSUFFICIENCY UNSPECIFIED 07/23/2012 DONALDSON CASHERO CERTIFIED MEDICINE AIDE, SABINA N 600.00 HYPERTROPHY (BENIGN) OF PROSTATE WITHOUT URINARY OBSTRUCTION AND OTHER LOWER URINARY TRACT SYMPTOMS (LUTS) 07/23/2012 DONALDSON CASHERO CERTIFIED MEDICINE AIDE, SABINA N 788.41 URINARY FREQUENCY 07/23/2012 DONALDSON CASHERO CERTIFIED MEDICINE AIDE, SABINA N 356.9 UNSPECIFIED IDIOPATHIC PERIPHERAL NEUROPATHY 07/23/2012 DONALDSON CASHERO CERTIFIED MEDICINE AIDE, SABINA N 459.81 VENOUS (PERIPHERAL) INSUFFICIENCY UNSPECIFIED 07/23/2012 DONALDSON CASHERO CERTIFIED MEDICINE AIDE, SABINA N 600.00 HYPERTROPHY (BENIGN) OF PROSTATE WITHOUT URINARY OBSTRUCTION AND OTHER LOWER URINARY TRACT SYMPTOMS (LUTS) 07/23/2012 DONALDSON CASHERO CERTIFIED MEDICINE AIDE, SABINA N 788.41 URINARY FREQUENCY 07/23/2012 DONALDSON CASHERO CERTIFIED MEDICINE AIDE, SABINA N 356.9 UNSPECIFIED IDIOPATHIC PERIPHERAL NEUROPATHY 07/23/2012 DONALDSON CASHERO CERTIFIED MEDICINE AIDE, SABINA N 459.81 VENOUS (PERIPHERAL) INSUFFICIENCY UNSPECIFIED 07/23/2012 DONALDSON CASHERO CERTIFIED MEDICINE AIDE, SABINA N 600.00 HYPERTROPHY (BENIGN) OF PROSTATE WITHOUT URINARY OBSTRUCTION AND OTHER LOWER URINARY TRACT SYMPTOMS (LUTS) 07/23/2012 DONALDSON CASHERO CERTIFIED MEDICINE AIDE, SABINA N 788.41 URINARY FREQUENCY 07/23/2012 AVILA DO, AILYN K 356.9 UNSPECIFIED IDIOPATHIC PERIPHERAL NEUROPATHY 07/23/2012 AVILA DO, AILYN K 459.81 VENOUS (PERIPHERAL) INSUFFICIENCY UNSPECIFIED 07/23/2012 AVILA DO, AILYN K 600.00 HYPERTROPHY (BENIGN) OF PROSTATE WITHOUT URINARY OBSTRUCTION AND OTHER LOWER URINARY TRACT SYMPTOMS (LUTS) 07/23/2012 AVILA DO, AILYN K 788.41 URINARY FREQUENCY 07/23/2012 DONALDSON CASHERO CERTIFIED MEDICINE AIDE, SABINA N 356.9 UNSPECIFIED IDIOPATHIC PERIPHERAL NEUROPATHY 07/23/2012 DONALDSON CASHERO CERTIFIED MEDICINE AIDE, SABINA N 459.81 VENOUS (PERIPHERAL) INSUFFICIENCY UNSPECIFIED 07/23/2012 DONALDSON CASHERO CERTIFIED MEDICINE AIDE, SABINA N 600.00 HYPERTROPHY (BENIGN) OF PROSTATE WITHOUT URINARY OBSTRUCTION AND OTHER LOWER URINARY TRACT SYMPTOMS (LUTS) 07/23/2012 DONALDSON CASHERO CERTIFIED MEDICINE AIDE, SABINA N 788.41 URINARY FREQUENCY 07/23/2012 DONALDSON CASHERO CERTIFIED MEDICINE AIDE, SABINA N 356.9 UNSPECIFIED IDIOPATHIC PERIPHERAL NEUROPATHY 07/23/2012 DONALDSON CASHERO CERTIFIED MEDICINE AIDE, SABINA N 459.81 VENOUS (PERIPHERAL) INSUFFICIENCY UNSPECIFIED 07/23/2012 DONALDSON CASHERO CERTIFIED MEDICINE AIDE, SABINA N 600.00 HYPERTROPHY (BENIGN) OF PROSTATE WITHOUT URINARY OBSTRUCTION AND OTHER LOWER URINARY TRACT SYMPTOMS (LUTS) 07/23/2012 DONALDSON CASHERO CERTIFIED MEDICINE AIDE, SABINA N 788.41 URINARY FREQUENCY 07/23/2012 AVILA DO, AILYN K 356.9 UNSPECIFIED IDIOPATHIC PERIPHERAL NEUROPATHY 07/23/2012 AVILA DO, AILYN K 459.81 VENOUS (PERIPHERAL) INSUFFICIENCY UNSPECIFIED 07/23/2012 AVILA DO, AILYN K 600.00 HYPERTROPHY (BENIGN) OF PROSTATE WITHOUT URINARY OBSTRUCTION AND OTHER LOWER URINARY TRACT SYMPTOMS (LUTS) 07/23/2012 AVILA DO, AILYN K 788.41 URINARY FREQUENCY 07/23/2012 DONALDSON CASHERO CERTIFIED MEDICINE AIDE, SABINA N 356.9 UNSPECIFIED IDIOPATHIC PERIPHERAL NEUROPATHY 07/23/2012 DONALDSON CASHERO CERTIFIED MEDICINE AIDE, SABINA N 459.81 VENOUS (PERIPHERAL) INSUFFICIENCY UNSPECIFIED 07/23/2012 DONALDSON CASHERO CERTIFIED MEDICINE AIDE, SABINA N 600.00 HYPERTROPHY (BENIGN) OF PROSTATE WITHOUT URINARY OBSTRUCTION AND OTHER LOWER URINARY TRACT SYMPTOMS (LUTS) 07/23/2012 DONALDSON CASHERO CERTIFIED MEDICINE AIDE, SABINA N 788.41 URINARY FREQUENCY 07/23/2012 SHELBI DPM, MCKENZIE 356.9 UNSPECIFIED IDIOPATHIC PERIPHERAL NEUROPATHY 07/23/2012 SHELBI DPM, MCKENZIE 459.81 VENOUS (PERIPHERAL) INSUFFICIENCY UNSPECIFIED 07/23/2012 SHELBI DPM, MCKENZIE 600.00 HYPERTROPHY (BENIGN) OF PROSTATE WITHOUT URINARY OBSTRUCTION AND OTHER LOWER URINARY TRACT SYMPTOMS (LUTS) 07/23/2012 SHELBI DPM, MCKENZIE 788.41 URINARY FREQUENCY 07/23/2012 DONALDSON CASHERO CERTIFIED MEDICINE AIDE, SABINA N 356.9 UNSPECIFIED IDIOPATHIC PERIPHERAL NEUROPATHY 07/23/2012 DONALDSON CASHERO CERTIFIED MEDICINE AIDE, SABINA N 459.81 VENOUS (PERIPHERAL) INSUFFICIENCY UNSPECIFIED 07/23/2012 DONALDSON CASHERO CERTIFIED MEDICINE AIDE, SABINA N 600.00 HYPERTROPHY (BENIGN) OF PROSTATE WITHOUT URINARY OBSTRUCTION AND OTHER LOWER URINARY TRACT SYMPTOMS (LUTS) 07/23/2012 DONALDSON CASHERO CERTIFIED MEDICINE AIDE, SABINA N 788.41 URINARY FREQUENCY 07/23/2012 DONALDSON CASHERO CERTIFIED MEDICINE AIDE, SABINA N 356.9 UNSPECIFIED IDIOPATHIC PERIPHERAL NEUROPATHY 07/23/2012 DONALDSON CASHERO CERTIFIED MEDICINE AIDE, SABINA N 459.81 VENOUS (PERIPHERAL) INSUFFICIENCY UNSPECIFIED 07/23/2012 DONALDSON CASHERO CERTIFIED MEDICINE AIDE, SABINA N 600.00 HYPERTROPHY (BENIGN) OF PROSTATE WITHOUT URINARY OBSTRUCTION AND OTHER LOWER URINARY TRACT SYMPTOMS (LUTS) 07/23/2012 DONALDSON CASHERO CERTIFIED MEDICINE AIDE, SABINA N 788.41 URINARY FREQUENCY 07/23/2012 DONALDSON CASHERO CERTIFIED MEDICINE AIDE, SABINA N 356.9 UNSPECIFIED IDIOPATHIC PERIPHERAL NEUROPATHY 07/23/2012 DONALDSON CASHERO CERTIFIED MEDICINE AIDE, SABINA N 459.81 VENOUS (PERIPHERAL) INSUFFICIENCY UNSPECIFIED 07/23/2012 DONALDSON CASHERO CERTIFIED MEDICINE AIDE, SABINA N 600.00 HYPERTROPHY (BENIGN) OF PROSTATE WITHOUT URINARY OBSTRUCTION AND OTHER LOWER URINARY TRACT SYMPTOMS (LUTS) 07/23/2012 DONALDSON CASHERO CERTIFIED MEDICINE AIDE, SABINA N 788.41 URINARY FREQUENCY 07/23/2012 DONALDSON CASHERO CERTIFIED MEDICINE AIDE, SABINA N 356.9 UNSPECIFIED IDIOPATHIC PERIPHERAL NEUROPATHY 07/23/2012 DONALDSON CASHERO CERTIFIED MEDICINE AIDE, SABINA N 459.81 VENOUS (PERIPHERAL) INSUFFICIENCY UNSPECIFIED 07/23/2012 DONALDSON CASHERO CERTIFIED MEDICINE AIDE, SABINA N 600.00 HYPERTROPHY (BENIGN) OF PROSTATE WITHOUT URINARY OBSTRUCTION AND OTHER LOWER URINARY TRACT SYMPTOMS (LUTS) 07/23/2012 DONALDSON CASHERO CERTIFIED MEDICINE AIDE, SABINA N 788.41 URINARY FREQUENCY 11/12/2012 311 DEPRESSIVE DISORDER NOT ELSEWHERE CLASSIFIED 11/12/2012 530.11 REFLUX ESOPHAGITIS 11/12/2012 311 DEPRESSIVE DISORDER NOT ELSEWHERE CLASSIFIED 11/12/2012 530.11 REFLUX ESOPHAGITIS 11/12/2012 311 DEPRESSIVE DISORDER NOT ELSEWHERE CLASSIFIED 11/12/2012 530.11 REFLUX ESOPHAGITIS 11/12/2012 DONALDSON CASHERO CERTIFIED MEDICINE AIDE, SABINA N 311 DEPRESSIVE DISORDER NOT ELSEWHERE CLASSIFIED 11/12/2012 DONALDSON CASHERO CERTIFIED MEDICINE AIDE, SABINA N 530.11 REFLUX ESOPHAGITIS 11/12/2012 AILYN AVILA DO 311 DEPRESSIVE DISORDER NOT ELSEWHERE CLASSIFIED 11/12/2012 AVILA DO, AILYN K 530.11 REFLUX ESOPHAGITIS 11/12/2012 DONALDSON CASHERO CERTIFIED MEDICINE AIDE, SABINA N 311 DEPRESSIVE DISORDER NOT ELSEWHERE CLASSIFIED 11/12/2012 DONALDSON CASHERO CERTIFIED MEDICINE AIDE, SABINA N 530.11 REFLUX ESOPHAGITIS 11/12/2012 DONALDSON CASHERO CERTIFIED MEDICINE AIDE, SABINA N 311 DEPRESSIVE DISORDER NOT ELSEWHERE CLASSIFIED 11/12/2012 DONALDSON CASHERO CERTIFIED MEDICINE AIDE, SABINA N 530.11 REFLUX ESOPHAGITIS 11/12/2012 DONALDSON CASHERO CERTIFIED MEDICINE AIDE, SABINA N 311 DEPRESSIVE DISORDER NOT ELSEWHERE CLASSIFIED 11/12/2012 DONALDSON CASHERO CERTIFIED MEDICINE AIDE, SABINA N 530.11 REFLUX ESOPHAGITIS 11/12/2012 AVILA DO, AILYN K 311 DEPRESSIVE DISORDER NOT ELSEWHERE CLASSIFIED 11/12/2012 AVILA DO, AILYN K 530.11 REFLUX ESOPHAGITIS 11/12/2012 DONALDSON CASHERO CERTIFIED MEDICINE AIDE, SABINA N 311 DEPRESSIVE DISORDER NOT ELSEWHERE CLASSIFIED 11/12/2012 DONALDSON CASHERO CERTIFIED MEDICINE AIDE, SABINA N 530.11 REFLUX ESOPHAGITIS 11/12/2012 DONALDSON CASHERO CERTIFIED MEDICINE AIDE, SABINA N 311 DEPRESSIVE DISORDER NOT ELSEWHERE CLASSIFIED 11/12/2012 DONALDSON CASHERO CERTIFIED MEDICINE AIDE, SABINA N 530.11 REFLUX ESOPHAGITIS 11/12/2012 AVILA DO, AILYN K 311 DEPRESSIVE DISORDER NOT ELSEWHERE CLASSIFIED 11/12/2012 AVILA DO, AILYN K 530.11 REFLUX ESOPHAGITIS 11/12/2012 DONALDSON CASHERO CERTIFIED MEDICINE AIDE, SABINA N 311 DEPRESSIVE DISORDER NOT ELSEWHERE CLASSIFIED 11/12/2012 DONALDSON CASHERO CERTIFIED MEDICINE AIDE, SABINA N 530.11 REFLUX ESOPHAGITIS 11/12/2012 SHELBI DPM, MCKENZIE 311 DEPRESSIVE DISORDER NOT ELSEWHERE CLASSIFIED 11/12/2012 SHELBI DPM, MCKENZIE 530.11 REFLUX ESOPHAGITIS 11/12/2012 DONALDSON CASHERO CERTIFIED MEDICINE AIDE, SABINA N 311 DEPRESSIVE DISORDER NOT ELSEWHERE CLASSIFIED 11/12/2012 DONALDSON CASHERO CERTIFIED MEDICINE AIDE, SABINA N 530.11 REFLUX ESOPHAGITIS 11/12/2012 DONALDSON CASHERO CERTIFIED MEDICINE AIDE, SABINA N 311 DEPRESSIVE DISORDER NOT ELSEWHERE CLASSIFIED 11/12/2012 DONALDSON CASHERO CERTIFIED MEDICINE AIDE, SABINA N 530.11 REFLUX ESOPHAGITIS 11/12/2012 DONALDSON CASHERO CERTIFIED MEDICINE AIDE, SABINA N 311 DEPRESSIVE DISORDER NOT ELSEWHERE CLASSIFIED 11/12/2012 DONALDSON CASHERO CERTIFIED MEDICINE AIDE, SABINA N 530.11 REFLUX ESOPHAGITIS 11/12/2012 DONALDSON CASHMANJINDER SCOTT, SABINA N 311 DEPRESSIVE DISORDER NOT ELSEWHERE CLASSIFIED 11/12/2012 DONALDSONSHEREE CHACONMANJINDER CERTIFIED MEDICINE AIDE, SABINA N 530.11 REFLUX ESOPHAGITIS 02/12/2013 110.1 ONYCHOMYCOSIS 02/12/2013 735.4 HAMMER TOE ( ACQUIRED) 02/12/2013 110.1 ONYCHOMYCOSIS 02/12/2013 735.4 HAMMER TOE ( ACQUIRED) 02/12/2013 DONALDSON INESMANJINDER CERTIFIED MEDICINE AIDE, SABINA N 110.1 ONYCHOMYCOSIS 02/12/2013 DONALDSON INESERO CERTIFIED MEDICINE AIDE, SABINA N 735.4 HAMMER TOE (ACQUIRED) 02/12/2013 AVILA DO, AILYN K 110.1 ONYCHOMYCOSIS 02/12/2013 AVILA DO, AILYN K 735.4 HAMMER TOE (ACQUIRED) 02/12/2013 DONALDSON INESMANJINDER CERTIFIED MEDICINE AIDE, SABINA N 110.1 ONYCHOMYCOSIS 02/12/2013 DONALDSON INESMANJINDER CERTIFIED MEDICINE AIDE, SABINA N 735.4 HAMMER TOE (ACQUIRED) 02/12/2013 DONALDSON INESMANJINDER CERTIFIED MEDICINE AIDE, SABINA N 110.1 ONYCHOMYCOSIS 02/12/2013 DONALDSON INESERO CERTIFIED MEDICINE AIDE, SABINA N 735.4 HAMMER TOE (ACQUIRED) 02/12/2013 DONALDSON INESERO CERTIFIED MEDICINE AIDE, SABINA N 110.1 ONYCHOMYCOSIS 02/12/2013 DONALDSON INESERO CERTIFIED MEDICINE AIDE, SABINA N 735.4 HAMMER TOE (ACQUIRED) 02/12/2013 AVILA DO, AILYN K 110.1 ONYCHOMYCOSIS 02/12/2013 AVILA DO, AILYN K 735.4 HAMMER TOE (ACQUIRED) 02/12/2013 DONALDSON CASHERO CERTIFIED MEDICINE AIDE, SABINA N 110.1 ONYCHOMYCOSIS 02/12/2013 DONALDSON CASHERO CERTIFIED MEDICINE AIDE, SABINA N 735.4 HAMMER TOE (ACQUIRED) 02/12/2013 DONALDSON CASHERO CERTIFIED MEDICINE AIDE, SABINA N 110.1 ONYCHOMYCOSIS 02/12/2013 DONALDSON CASHERO CERTIFIED MEDICINE AIDE, SABINA N 735.4 HAMMER TOE (ACQUIRED) 02/12/2013 AVILA DO, AILYN K 110.1 ONYCHOMYCOSIS 02/12/2013 AVILA DO, AILYN K 735.4 HAMMER TOE (ACQUIRED) 02/12/2013 DONALDSON CASHERO CERTIFIED MEDICINE AIDE, SABINA N 110.1 ONYCHOMYCOSIS 02/12/2013 DONALDSON CASHERO CERTIFIED MEDICINE AIDE, SABINA N 735.4 HAMMER TOE (ACQUIRED) 02/12/2013 SHELBI DPM, MCKENZIE 110.1 ONYCHOMYCOSIS 02/12/2013 SHELBI DPM, MCKENZIE 735.4 HAMMER TOE (ACQUIRED) 02/12/2013 DONALDSON CASHERO CERTIFIED MEDICINE AIDE, SABINA N 110.1 ONYCHOMYCOSIS 02/12/2013 DONALDSON CASHERO CERTIFIED MEDICINE AIDE, SABINA N 735.4 HAMMER TOE (ACQUIRED) 02/12/2013 DONALDSON CASHERO CERTIFIED MEDICINE AIDE, SABINA N 110.1 ONYCHOMYCOSIS 02/12/2013 DONALDSON CASHERO CERTIFIED MEDICINE AIDE, SABINA N 735.4 HAMMER TOE (ACQUIRED) 02/12/2013 DONALDSON CASHERO CERTIFIED MEDICINE AIDE, SABINA N 110.1 ONYCHOMYCOSIS 02/12/2013 DONALDSON CASHERO CERTIFIED MEDICINE AIDE, SABINA N 735.4 HAMMER TOE (ACQUIRED) 02/12/2013 DONALDSON CASHERO CERTIFIED MEDICINE AIDE, SABINA N 110.1 ONYCHOMYCOSIS 02/12/2013 DONALDSON CASHERO CERTIFIED MEDICINE AIDE, SABINA N 735.4 HAMMER TOE (ACQUIRED) 02/16/2013 607.84 IMPOTENCE OF ORGANIC ORIGIN 02/16/2013 V58.69 LONG-TERM ( CURRENT) USE OF OTHER MEDICATIONS 02/16/2013 DONALDSON CASHERO CERTIFIED MEDICINE AIDE, SABINA N 607.84 IMPOTENCE OF ORGANIC ORIGIN 02/16/2013 DONALDSON CASHERO CERTIFIED MEDICINE AIDE, SABINA N V58.69 LONG-TERM (CURRENT) USE OF OTHER MEDICATIONS 02/16/2013 AVILA DO, AILYN K 607.84 IMPOTENCE OF ORGANIC ORIGIN 02/16/2013 AVILA DO, AILYN K V58.69 LONG-TERM (CURRENT) USE OF OTHER MEDICATIONS 02/16/2013 DONALDSON CASHERO CERTIFIED MEDICINE AIDE, SABINA N 607.84 IMPOTENCE OF ORGANIC ORIGIN 02/16/2013 DONALDSON CASHERO CERTIFIED MEDICINE AIDE, SABINA N V58.69 LONG-TERM (CURRENT) USE OF OTHER MEDICATIONS 02/16/2013 DONALDSON CASHERO CERTIFIED MEDICINE AIDE, SABINA N 607.84 IMPOTENCE OF ORGANIC ORIGIN 02/16/2013 DONALDSON CASHERO CERTIFIED MEDICINE AIDE, SABINA N V58.69 LONG-TERM (CURRENT) USE OF OTHER MEDICATIONS 02/16/2013 DONALDSON CASHERO CERTIFIED MEDICINE AIDE, SABINA N 607.84 IMPOTENCE OF ORGANIC ORIGIN 02/16/2013 DONALDSON CASHERO CERTIFIED MEDICINE AIDE, SABINA N V58.69 LONG-TERM (CURRENT) USE OF OTHER MEDICATIONS 02/16/2013 AVILA DO, AILYN K 607.84 IMPOTENCE OF ORGANIC ORIGIN 02/16/2013 AVILA DO, AILYN K V58.69 LONG-TERM (CURRENT) USE OF OTHER MEDICATIONS 02/16/2013 DONALDSON CASHERO CERTIFIED MEDICINE AIDE, SABINA N 607.84 IMPOTENCE OF ORGANIC ORIGIN 02/16/2013 DONALDSON CASHERO CERTIFIED MEDICINE AIDE, SABINA N V58.69 LONG-TERM (CURRENT) USE OF OTHER MEDICATIONS 02/16/2013 DONALDSON CASHERO CERTIFIED MEDICINE AIDE, SABINA N 607.84 IMPOTENCE OF ORGANIC ORIGIN 02/16/2013 DONALDSON CASHERO CERTIFIED MEDICINE AIDE, SABINA N V58.69 LONG-TERM (CURRENT) USE OF OTHER MEDICATIONS 02/16/2013 AVILA DO, AILYN K 607.84 IMPOTENCE OF ORGANIC ORIGIN 02/16/2013 AVILA DO, AILYN K V58.69 LONG-TERM (CURRENT) USE OF OTHER MEDICATIONS 02/16/2013 DONALDSON CASHERO CERTIFIED MEDICINE AIDE, SABINA N 607.84 IMPOTENCE OF ORGANIC ORIGIN 02/16/2013 DONALDSON CASHERO CERTIFIED MEDICINE AIDE, SABINA N V58.69 LONG-TERM (CURRENT) USE OF OTHER MEDICATIONS 02/16/2013 SHELBI DPM, MCKENZIE 607.84 IMPOTENCE OF ORGANIC ORIGIN 02/16/2013 SHELBI DPM, MCKENZIE V58.69 LONG-TERM (CURRENT) USE OF OTHER MEDICATIONS 02/16/2013 DONALDSON CASHERO CERTIFIED MEDICINE AIDE, SABINA N 607.84 IMPOTENCE OF ORGANIC ORIGIN 02/16/2013 DONALDSON CASHERO CERTIFIED MEDICINE AIDE, SABINA N V58.69 LONG-TERM (CURRENT) USE OF OTHER MEDICATIONS 02/16/2013 DONALDSON CASHERO CERTIFIED MEDICINE AIDE, SABINA N 607.84 IMPOTENCE OF ORGANIC ORIGIN 02/16/2013 DONALDSON CASHERO CERTIFIED MEDICINE AIDE, SABINA N V58.69 LONG-TERM (CURRENT) USE OF OTHER MEDICATIONS 02/16/2013 DONALDSON CASHERO CERTIFIED MEDICINE AIDE, SABINA N 607.84 IMPOTENCE OF ORGANIC ORIGIN 02/16/2013 MENDOZA HANSON APRNKHRISCY N V58.69 LONG-TERM (CURRENT) USE OF OTHER MEDICATIONS 02/16/2013 MENDOZA HANSON APRNKHRISCY N 607.84 IMPOTENCE OF ORGANIC ORIGIN 02/16/2013 MENDOZA HANSON APRNKHRISCY N V58.69 LONG-TERM (CURRENT) USE OF OTHER MEDICATIONS 11/23/2013 MENDOZA HANSON APRMartine SABINA N 250.02 DIABETES MELLITUS WITHOUT MENTION OF COMPLICATION TYPE II OR UNSPECIFIED TYPE UNCONTROLLED 11/23/2013 MENDOZA HANSON APRMartine SABINA N 250.02 DIABETES MELLITUS WITHOUT MENTION OF COMPLICATION TYPE II OR UNSPECIFIED TYPE UNCONTROLLED 11/23/2013 AILYN AVILA DO 250.02 DIABETES MELLITUS WITHOUT MENTION OF COMPLICATION TYPE II OR UNSPECIFIED TYPE UNCONTROLLED 11/23/2013 MENDOZA HANSON APRMartine SABINA N 250.02 DIABETES MELLITUS WITHOUT MENTION OF COMPLICATION TYPE II OR UNSPECIFIED TYPE UNCONTROLLED 11/23/2013 SHELBI DPM, MCKENZIE 250.02 DIABETES MELLITUS WITHOUT MENTION OF COMPLICATION TYPE II OR UNSPECIFIED TYPE UNCONTROLLED 11/23/2013 MENDOZA HANSON APRNSABINA N 250.02 DIABETES MELLITUS WITHOUT MENTION OF COMPLICATION TYPE II OR UNSPECIFIED TYPE UNCONTROLLED 11/23/2013 MENDOZA HANSON APRNSABINA N 250.02 DIABETES MELLITUS WITHOUT MENTION OF COMPLICATION TYPE II OR UNSPECIFIED TYPE UNCONTROLLED 11/23/2013 MENDOZA HANSON APRNSABINA N 250.02 DIABETES MELLITUS WITHOUT MENTION OF COMPLICATION TYPE II OR UNSPECIFIED TYPE UNCONTROLLED 11/23/2013 MENDOZA HANSON APRMartine SABINA N 250.02 DIABETES MELLITUS WITHOUT MENTION OF COMPLICATION TYPE II OR UNSPECIFIED TYPE UNCONTROLLED 02/22/2014 MENDOZA HANSON APRMartine SABINA N 780.4 DIZZINESS AND GIDDINESS 02/22/2014 DONALDSONSHEREE HANSON APRN, SABINA N 782.0 DISTURBANCE OF SKIN SENSATION 02/22/2014 DONALDSONSHEREE HANSON APRMartine SABINA N V67.9 UNSPECIFIED FOLLOW-UP EXAMINATION 02/22/2014 SHELBI DPM, MCKENZIE 780.4 DIZZINESS AND GIDDINESS 02/22/2014 SHELBI DPM, MCKENZIE 782.0 DISTURBANCE OF SKIN SENSATION 02/22/2014 SHELBI DPM, MCKENZIE V67.9 UNSPECIFIED FOLLOW-UP EXAMINATION 02/22/2014 DONALDSON CASHERO CERTIFIED MEDICINE AIDE, SABINA N 780.4 DIZZINESS AND GIDDINESS 02/22/2014 DONALDSON CASHERO CERTIFIED MEDICINE AIDE, SABINA N 782.0 DISTURBANCE OF SKIN SENSATION 02/22/2014 DONALDSON CASHERO CERTIFIED MEDICINE AIDE, SABINA N V67.9 UNSPECIFIED FOLLOW-UP EXAMINATION 02/22/2014 DONALDSON CASHERO CERTIFIED MEDICINE AIDE, SABINA N 780.4 DIZZINESS AND GIDDINESS 02/22/2014 DONALDSON CASHERO CERTIFIED MEDICINE AIDE, SABINA N 782.0 DISTURBANCE OF SKIN SENSATION 02/22/2014 DONALDSON CASHERO CERTIFIED MEDICINE AIDE, SABINA N V67.9 UNSPECIFIED FOLLOW-UP EXAMINATION 02/22/2014 DONALDSON CASHERO CERTIFIED MEDICINE AIDE, SABINA N 780.4 DIZZINESS AND GIDDINESS 02/22/2014 DONALDSON CASHERO CERTIFIED MEDICINE AIDE, SABINA N 782.0 DISTURBANCE OF SKIN SENSATION 02/22/2014 DONALDSON CASHERO CERTIFIED MEDICINE AIDE, SABINA N V67.9 UNSPECIFIED FOLLOW-UP EXAMINATION 02/22/2014 DONALDSON CASHERO CERTIFIED MEDICINE AIDE, SABINA N 780.4 DIZZINESS AND GIDDINESS 02/22/2014 DONALDSON CASHERO CERTIFIED MEDICINE AIDE, SABINA N 782.0 DISTURBANCE OF SKIN SENSATION 02/22/2014 DONALDSON CASHERO CERTIFIED MEDICINE AIDE, SABINA N V67.9 UNSPECIFIED FOLLOW-UP EXAMINATION 01/10/2015 DORIE OWUSU, CARLOS Jackson Ot 250.00 DIAB FLAQUITA WO COMPL, TYPE II OR UNSPEC TY 01/10/2015 DORIE OWUSU, CARLOS Jackson Ot 272.4 HYPERLIPIDEMIA NEC/NOS 01/10/2015 DORIE OWUSU, CARLOS Jackson Ot 276.1 HYPOSMOLALITY 01/10/2015 CARLOS OSHEA MD Ot 296.80 BIPOLAR DISORDER, UNSPECIFIED 01/10/2015 CARLOS OSHEA MD Ot 305.1 TOBACCO USE DISORDER 01/10/2015 CARLOS OSHEA MD Ot 356.9 IDIO PERIPH NEURPTHY NOS 01/10/2015 CARLOS OSHEA MD Ot 707.15 ULCER OF OTHER PART OF FOOT 01/10/2015 CARLOS OSHEA MD Ot 788.30 UNSPECIFIED URINARY INCONTINENCE 01/10/2015 CARLOS OSHEA MD Ot V15.88 HISTORY OF FALL 01/13/2015 LEON OWUSU, VIRAL Ramirez Ot 250.60 01/13/2015 LEON OWUSU VIRAL E Ot 272.4 01/13/2015 LEON OWUSU VIRAL E Ot 276.1 01/13/2015 LEON OWUSU VIRAL E Ot 296.50 01/13/2015 LEON OWUSU VIRAL E Ot 305.1 01/13/2015 LEON OWUSU VIRAL E Ot 357.2 01/13/2015 LEON OWUSU VIRAL E Ot 788.30 01/18/2015 VIRAL QUINTERO MD E Ot 110.1 DERMATOPHYTOSIS OF NAIL 01/18/2015 VIRAL QUINTERO MD E Ot 250.60 DIAB W NEURO MANIFEST, TYPE II OR UNSPEC 01/18/2015 VIRAL QUINTERO MD E Ot 272.4 HYPERLIPIDEMIA NEC/NOS 01/18/2015 VIRAL QUINTERO MD E Ot 276.1 HYPOSMOLALITY 01/18/2015 VIRAL QUINTERO MD E Ot 296.50 BIPOL I, REC EPIS (OR CURRENT) DEPRESSED 01/18/2015 LEON OWUSU VIRAL E Ot 305.1 TOBACCO USE DISORDER 01/18/2015 LEON OWUSU VIRAL E Ot 357.2 NEUROPATHY IN DIABETES 01/18/2015 LEON OWUSU, VIRAL E Ot 707.15 ULCER OF OTHER PART OF FOOT 01/18/2015 LEON OWUSU VIRAL E Ot 735.4 OTHER HAMMER TOE 01/18/2015 LEON OWUSU, VIRAL E Ot 788.30 UNSPECIFIED URINARY INCONTINENCE 01/20/2015 AVILA , AILYN K Ot 250.00 DIAB FLAQUITA WO COMPL, TYPE II OR UNSPEC TY 01/20/2015 AVILA DO AILYN K Ot 276.1 HYPOSMOLALITY 01/20/2015 AUSTIN AVILA AILYN K Ot 296.80 BIPOLAR DISORDER, UNSPECIFIED 01/20/2015 AUSTIN AVILA AILYN K Ot 305.1 TOBACCO USE DISORDER 01/20/2015 AUSTIN AVILA AILYN K Ot 530.81 ESOPHAGEAL REFLUX 01/20/2015 AUSTIN AVILA, AILYN K Ot 780.97 ALTERED MENTAL STATUS 01/20/2015 AUSTIN AVILA AILYN K Ot V58.67 LONG-TERM (CURRENT) USE OF INSULIN 01/20/2015 AUSTIN AVILA, AILYN K Ot 250.00 01/20/2015 AVILA , AILYN K Ot 276.1 01/20/2015 AVILA DO AILYN K Ot 296.80 01/20/2015 AUSTIN AVILA AILYN K Ot 305.1 01/20/2015 AILYN AVILA DO Ot 530.81 01/20/2015 AILYN AVILA DO Ot 780.97 01/20/2015 AILYN AVILA DO Ot V58.67 02/02/2015 TAMIKO CASTRO Ot 920 CONTUSION FACE/SCALP/NCK 02/02/2015 TAMIKO CASTRO Ot 959.01 HEAD INJURY, NOS 02/02/2015 TAMIKO CASTRO Ot E000.8 OTHER EXTERNAL CAUSE STATUS 02/02/2015 TAMIKO CASTRO Ot E849.7 ACCID IN RESIDENT INSTIT 02/02/2015 TAMIKO CASTRO Ot E888.1 FALL STRIKING OBJECT NEC 02/07/2015 TAMIKO CASTRO Ot 920 02/07/2015 TAMIKO CASTRO Ot 959.01 02/07/2015 TAMIKO CASTRO Ot E000.8 02/07/2015 TAMIKO CASTRO Ot E849.7 02/07/2015 TAMIKO CASTRO Ot E888.1 02/11/2015 TAMIKO CASTRO Ot 920 02/11/2015 TAMIKO CASTRO Ot 959.01 02/11/2015 TAMIKO CASTRO Ot E000.8 02/11/2015 TAMIKO CASTRO Ot E849.7 02/11/2015 TAMIKO CASTRO Ot E888.1 02/14/2015 CRISTO VILLAVICENCIO MD Ot 250.00 DIAB FLAQUITA WO COMPL, TYPE II OR UNSPEC TY 02/14/2015 CRISTO VILLAVICENCIO MD Ot 272.4 HYPERLIPIDEMIA NEC/NOS 02/14/2015 CRISTO VILLAVICENCIO MD Ot 276.1 HYPOSMOLALITY 02/14/2015 CRISTO VILLAVICENCIO MD Ot 296.80 BIPOLAR DISORDER, UNSPECIFIED 02/14/2015 CRISTO VILLAVICENCIO MD Ot 298.9 PSYCHOSIS NOS 02/14/2015 CRISTO VILLAVICENCIO MD Ot 305.1 TOBACCO USE DISORDER 02/14/2015 CRISTO VILLAVICENCIO MD Ot 356.9 IDIO PERIPH NEURPTHY NOS 02/14/2015 CRISTO VILLAVICENCIO MD Ot 783.5 POLYDIPSIA 02/14/2015 CRISTO VILLAVICENCIO MD Ot 920 CONTUSION FACE/SCALP/NCK 02/14/2015 CRISTO VILLAVICENCIO MD Ot E000.8 OTHER EXTERNAL CAUSE STATUS 02/14/2015 CRISTO VILLAVICENCIO MD Ot E849.0 ACCIDENT IN HOME 02/14/2015 CRISTO VILLAVICENCIO MD Ot E888.9 FALL NOS 04/04/2015 RIK MELCHOR MD Ot E11.51 TYPE 2 DIABETES W DIABETIC PERIPHERAL AN 04/04/2015 RIK MELCHOR MD Ot E11.621 TYPE 2 DIABETES MELLITUS WITH FOOT ULCER 04/04/2015 RIK MELCHOR MD Ot E78.5 HYPERLIPIDEMIA, UNSPECIFIED 04/04/2015 RIK MELCHOR MD Ot F32.9 MAJOR DEPRESSIVE DISORDER, SINGLE EPISOD 04/04/2015 RIK MELCHOR MD Ot 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 04/04/2015 RIK MELCHOR MD Ot L97.529 NON-PRESSURE CHRONIC ULCER OTH PRT LEFT 04/11/2015 RIK MELCHOR MD Ot E11.51 04/11/2015 RIK MELCHOR MD, Ot E11.621 04/11/2015 RIK MELCHOR MD Ot E78.5 04/11/2015 RIK MELCHOR MD Ot F32.9 04/11/2015 RIK MELCHOR MD, Ot I70.25 04/11/2015 RIK MELCHOR MD Ot L97.529 04/13/2015 CORNELIUS URENA MD Ot E11.622 TYPE 2 DIABETES MELLITUS WITH OTHER SKIN 04/13/2015 CORNELIUS URENA MD Ot F17.200 NICOTINE DEPENDENCE, UNSPECIFIED, UNCOMP 04/13/2015 CORNELIUS URENA MD Ot G62.9 POLYNEUROPATHY, UNSPECIFIED 04/13/2015 CORNELIUS URENA MD Ot I25.10 ATHSCL HEART DISEASE OF [place] CORONARY 04/13/2015 CORNELIUS URENA MD Ot I47.1 SUPRAVENTRICULAR TACHYCARDIA 04/13/2015 CORNELIUS URENA MD Ot I70.212 ATHSCL [place] ARTERIES OF EXTRM W INTRMT 04/13/2015 CORNELIUS URENA MD Ot I70.245 ATHSCL [place] ARTERIES OF LEFT LEG W ULC 04/13/2015 CORNELIUS URENA MD Ot I70.293 OTH ATHSCL [place] ARTERIES OF EXTREMITIE 04/13/2015 CORNELIUS URENA MD Ot 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 04/13/2015 CORNELIUS UREAN MD Ot R94.39 ABNORMAL RESULT OF OTHER CARDIOVASCULAR 04/13/2015 CORNELIUS URENA MD Ot Z79.899 OTHER DIRECTOR OF EDUCATION AND TRAINING (CURRENT) DRUG THERAPY 04/27/2015 SHELBI DPM, MCKENZIE Q Ot E11.52 TYPE 2 DIABETES W DIABETIC PERIPHERAL AN 04/27/2015 SHELBI DPM, MCKENZIE Q Ot E78.5 HYPERLIPIDEMIA, UNSPECIFIED 05/10/2015 CORNELIUS URENA MD Ot E11.9 05/10/2015 CORNELIUS URENA MD Ot I47.1 05/10/2015 CORNELIUS URENA MD Ot I70.211 05/10/2015 CORNELIUS URENA MD Ot I70.299 05/10/2015 CORNELIUS URENA MD Ot Z72.0 05/10/2015 SHELBI DPM, MCKENZIE Q Ot M86.9 05/10/2015 SHELBI DPM, MCKENZIE Q Ot Z01.818 05/10/2015 SHELBI DPM, MCKENZIE Q Ot Z11.2 05/11/2015 CORNELIUS URENA MD Ot E11.9 TYPE 2 DIABETES MELLITUS WITHOUT COMPLIC 05/11/2015 CORNELIUS URENA MD Ot E78.5 HYPERLIPIDEMIA, UNSPECIFIED 05/11/2015 CORNELIUS URENA MD Ot F31.61 BIPOLAR DISORDER, CURRENT EPISODE MIXED, 05/11/2015 CORNELIUS URENA MD Ot I25.10 ATHSCL HEART DISEASE OF [place] CORONARY 05/11/2015 CORNELIUS URENA MD Ot I70.245 ATHSCL [place] ARTERIES OF LEFT LEG W ULC 05/11/2015 CORNELIUS URENA MD Ot 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 05/11/2015 CORNELIUS URENA MD Ot Z79.4 LONGTERM (CURRENT) USE OF INSULIN 05/11/2015 CORNELIUS URENA MD Ot Z79.899 OTHER DIRECTOR OF EDUCATION AND TRAINING (CURRENT) DRUG THERAPY 05/11/2015 CORNELIUS URENA MD Ot Z87.891 PERSONAL HISTORY OF NICOTINE DEPENDENCE 05/15/2015 CORNELIUS URENA MD Ot E11.9 05/15/2015 CORNELIUS URENA MD Ot I47.1 05/15/2015 CORNELIUS URENA MD Ot I70.211 05/15/2015 CORNELIUS URENA MD Ot I70.299 05/15/2015 CORNELIUS URENA MD Ot Z72.0 05/26/2015 CORNELIUS URENA MD Ot E11.9 05/26/2015 CORNELIUS URENA MD Ot I47.1 05/26/2015 CORNELIUS URENA MD Ot I70.211 05/26/2015 CORNELIUS URENA MD Ot I70.299 05/26/2015 CORNELIUS URENA MD Ot Z72.0 11/21/2015 CRISTO VILLAVICENCIO MD, Ot D62 ACUTE POSTHEMORRHAGIC ANEMIA 11/21/2015 CRISTO VILLAVICENCIO MD Ot E11.9 TYPE 2 DIABETES MELLITUS WITHOUT COMPLIC 11/21/2015 CRISTO VILLAVICENCIO MD Ot E78.5 HYPERLIPIDEMIA, UNSPECIFIED 11/21/2015 CRISTO VILLAVICENCIO MD Ot E87.1 HYPO-OSMOLALITY AND HYPONATREMIA 11/21/2015 CRISTO VILLAVICENCIO MD Ot F17.210 NICOTINE DEPENDENCE, CIGARETTES, UNCOMPL 11/21/2015 CRISTO VILLAVICENCIO MD Ot F31.9 BIPOLAR DISORDER, UNSPECIFIED 11/21/2015 CRISTO VILLAVICENCIO MD Ot F32.9 MAJOR DEPRESSIVE DISORDER, SINGLE EPISOD 11/21/2015 CRISTO VILLAVICENCIO MD Ot F41.9 ANXIETY DISORDER, UNSPECIFIED 11/21/2015 CRISTO VILLAVICENCIO MD Ot F90.9 ATTENTION-DEFICIT HYPERACTIVITY DISORDER 11/21/2015 CRISTO VILLAVICENCIO MD, Ot G62.9 POLYNEUROPATHY, UNSPECIFIED 11/21/2015 CRISTO VILLAVICENCIO MD, Ot J44.9 CHRONIC OBSTRUCTIVE PULMONARY DISEASE, U 11/21/2015 CRISTO VILLAVICENCIO MD Ot K21.9 GASTRO-ESOPHAGEAL REFLUX DISEASE WITHOUT 11/21/2015 CRISTO VILLAVICENCIO MD Ot M19.90 UNSPECIFIED OSTEOARTHRITIS, UNSPECIFIED 11/21/2015 CRISTO VILLAVICENCIO MD Ot N31.9 NEUROMUSCULAR DYSFUNCTION OF BLADDER, UN 11/21/2015 CRISTO VILLAVICENCIO MD Ot S72.142A DISPLACED INTERTROCHANTERIC FRACTURE OF 11/21/2015 CRISTO VILLAVICENCIO MD, Ot W01.0XXA FALL SAME LEV FROM SLIP/TRIP W/O STRIKE 11/21/2015 CRISTO VILLAVICENCIO MD, Ot Y92.[address] 11/21/2015 CRISTO VILLAVICENCIO MD, Ot Y93.E1 ACTIVITY, PERSONAL BATHING AND SHOWERING 11/21/2015 CRISTO VILLAVICENCIO MD, Ot Z66 DO NOT RESUSCITATE 12/08/2015 CARLOS OSHEA MD Ot N39.0 URINARY TRACT INFECTION, SITE NOT SPECIF 12/27/2015 CARLOS OSHEA MD, Ot N39.0 URINARY TRACT INFECTION, SITE NOT SPECIF 12/27/2015 CARLOS OSHEA MD, Ot N39.0 URINARY TRACT INFECTION, SITE NOT SPECIF 07/07/2017 CARLA PLATT MD Ot D64.9 ANEMIA, UNSPECIFIED 07/07/2017 CARLA PLATT MD Ot E11.42 TYPE 2 DIABETES MELLITUS WITH DIABETIC P 07/07/2017 CARLA PLATT MD Ot E78.5 HYPERLIPIDEMIA, UNSPECIFIED 07/07/2017 CARLA PLATT MD Ot E86.1 HYPOVOLEMIA 07/07/2017 CARLA PLATT MD, Ot E87.1 HYPO-OSMOLALITY AND HYPONATREMIA 07/07/2017 CARLA PLATT MD Ot E87.6 HYPOKALEMIA 07/07/2017 CARLA PLATT MD Ot F17.210 NICOTINE DEPENDENCE, CIGARETTES, UNCOMPL 07/07/2017 CARLA PLATT MD Ot F31.9 BIPOLAR DISORDER, UNSPECIFIED 07/07/2017 CARLA PLATT MD Ot F41.9 ANXIETY DISORDER, UNSPECIFIED 07/07/2017 CARLA PLATT MD Ot F90.9 ATTENTION-DEFICIT HYPERACTIVITY DISORDER 07/07/2017 CARLA PLATT MD Ot H91.90 UNSPECIFIED HEARING LOSS, UNSPECIFIED EA 07/07/2017 CARLA PLATT MD Ot J18.9 PNEUMONIA, UNSPECIFIED ORGANISM 07/07/2017 CARLA PLATT MD Ot J44.0 CHRONIC OBSTRUCTIVE PULMON DISEASE W ACU 07/07/2017 CARLA PLATT MD Ot J96.01 ACUTE RESPIRATORY FAILURE WITH HYPOXIA 07/07/2017 CARLA PLATT MD, Ot K21.9 GASTRO-ESOPHAGEAL REFLUX DISEASE WITHOUT 07/07/2017 CARLA PLATT MD, Ot M19.91 PRIMARY OSTEOARTHRITIS, UNSPECIFIED SITE 07/07/2017 CARLA PLATT MD, Ot N31.9 NEUROMUSCULAR DYSFUNCTION OF BLADDER, UN 07/07/2017 CARLA PLATT MD, Ot Z79.4 DIRECTOR OF EDUCATION AND TRAINING (CURRENT) USE OF INSULIN 07/07/2017 CARLA PLATT MD, Ot Z87.81 PERSONAL HISTORY OF (HEALED) TRAUMATIC F 07/07/2017 CARLA PLATT MD, Ot Z99.3 DEPENDENCE ON WHEELCHAIR 07/12/2017 CORNELISU URENA MD Ot E11.9 TYPE 2 DIABETES MELLITUS WITHOUT COMPLIC 07/12/2017 CORNELIUS URENA MD Ot I47.1 SUPRAVENTRICULAR TACHYCARDIA 07/12/2017 CORNELIUS URENA MD Ot 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 07/12/2017 CORNELIUS URENA MD Ot I70.299 OTH ATHSCL [place] ARTERIES OF EXTREMITIE 07/12/2017 CORNELIUS URENA MD Ot Z72.0 TOBACCO USE 07/12/2017 SHELBI DPM, MCKENZIE Q Ot M86.9 OSTEOMYELITIS, UNSPECIFIED 07/12/2017 SHELBI DPM, MCKENZIE Q Ot Z01.818 ENCOUNTER FOR OTHER PREPROCEDURAL EXAMIN 07/12/2017 SHELBI DPM, MCKENZIE Q Ot Z11.2 ENCOUNTER FOR SCREENING FOR OTHER BACTER 07/12/2017 CARLOS OSHEA MD, Ot N39.0 URINARY TRACT INFECTION, SITE NOT SPECIF 09/30/2017 CARLOS OSHEA MD, Ot N40.0 BENIGN PROSTATIC HYPERPLASIA WITHOUT LOW 10/02/2017 CARLOS OSHEA MD, Ot N40.0 BENIGN PROSTATIC HYPERPLASIA WITHOUT LOW 10/17/2017 CARLOS OSHEA MD, Ot N40.0 BENIGN PROSTATIC HYPERPLASIA WITHOUT LOW 10/21/2017 CARLOS OSHEA MD, Ot N40.0 BENIGN PROSTATIC HYPERPLASIA WITHOUT LOW Procedures Code Description Performed By Performed On 51.23 LAPAROSCOPIC CHOLECYSTECTOMY 02/03/2012 51.85 ENDOSCOPIC SPHINCTEROTOMY AND PAPILLOTOM 02/04/2012 90393 A1C (IN-HOUSE) 07/20/2012 MACI ARECHIGA 07/24/2012 41267 XRAY LUMBAR SPINE 2 OR 3 VIEWS 10/22/2012 33895 A1C (IN-HOUSE) 11/12/2012 67835 ROUTINE VENIPUNCTURE 11/12/2012 63418 GLUCOSE FINGER STICK 11/12/2012 75804 CBC 11/12/2012 27858 CMP 11/12/2012 96615 LIPID PANEL 11/12/2012 0015325 GFR CALC (RESULT ONLY) 11/12/2012 41990 TSH 11/12/2012 64878 VITAMIN D 25-HYDROXY (D2,D3 , TOTAL) 11/12/2012 93899 XRAY CHEST 2 VIEW 11/17/2012 78425 DEBRIDE NAIL >6 02/12/2013 15175 ROUTINE VENIPUNCTURE 02/16/2013 76289 GLUCOSE FINGER STICK 02/16/2013 34601 TESTOSTERONE PANEL (FREE, TOTAL, and SHBG) 02/17/2013 Podiatry Mckenzie Prescott 02/24/2013 75292 A1C (IN-HOUSE) 05/18/2013 85848 GLUCOSE FINGER STICK 05/18/2013 24897 ROUTINE VENIPUNCTURE 09/28/2013 46356 A1C (IN-HOUSE) 09/28/2013 38993 ALT/SGOT 09/28/2013 19383 CBC 09/28/2013 86795 CMP 09/28/2013 51594 LIPID PANEL 09/28/2013 7345839 GFR CALC (RESULT ONLY) 09/28/2013 16996 AMYLASE 09/28/2013 07599 LIPASE 09/28/2013 47091 PSA TOTAL 09/28/2013 15454 TSH 09/28/2013 85286 DEBRIDE NAIL >6 11/12/2013 01685 A1C (IN-HOUSE) 11/23/2013 64544 DEBRIDE NAIL >6 02/11/2014 49671 ROUTINE VENIPUNCTURE 02/22/2014 25756 VITAMIN D I-25 DIHYDROXY 02/22/2014 91304 CBC 02/22/2014 6326280 GFR CALC (RESULT ONLY) 02/22/2014 46886 CMP 02/22/2014 09568 LIPID PANEL 02/22/2014 28830 MAGNESIUM 02/22/2014 88333 TSH 02/22/2014 14603 AMYLASE 02/22/2014 18128 LIPASE 02/22/2014 96278 UA LONG DIP 10/04/2014 08401 ROUTINE VENIPUNCTURE 10/06/2014 04996 A1C (IN-HOUSE) 10/06/2014 5046601 GFR CALC (RESULT ONLY) 10/06/2014 41141 CMP 10/06/2014 51470 LIPID PANEL 10/06/2014 63869 CBC 10/06/2014 28988 PSA TOTAL 10/06/2014 09499 TSH 10/06/2014 86.27 DEBRIDEMENT OF NAIL, NAIL BED OR NAIL FO 01/17/2015 [id number] REPOSITION LEFT UPPER FEMUR WITH INTRAME 11/18/2015 Results Test Result Range Complete blood count (CBC) with automated white blood cell (WBC) differential - 07/04/17 15:03 Blood leukocytes automated count (number/volume) 22.9 10*3/uL 4.3-11.0 Blood erythrocytes automated count (number/volume) 3.69 10*6/uL 4.35-5.85 Venous blood hemoglobin measurement (mass/volume) 12.1 g/dL 13.3-17.7 Blood hematocrit (volume fraction) 33 % 40-54 Automated erythrocyte mean corpuscular volume 89 [foz_us] 80-99 Automated erythrocyte mean corpuscular hemoglobin (mass per erythrocyte) 33 pg 25-34 Automated erythrocyte mean corpuscular hemoglobin concentration measurement ( mass/volume) 37 g/dL 32-36 Automated erythrocyte distribution width ratio 12.3 % 10.0-14.5 Automated blood platelet count (count/volume) 276 10*3/uL 130-400 Automated blood platelet mean volume measurement 9.2 [foz_us] 7.4-10.4 Automated blood neutrophils/100 leukocytes 92 % 42-75 Automated blood lymphocytes/100 leukocytes 4 % 12-44 Blood monocytes/100 leukocytes 4 % 0-12 Automated blood eosinophils/100 leukocytes 0 % 0-10 Automated blood basophils/100 leukocytes 0 % 0-10 Blood neutrophils automated count (number/volume) 21.0 10*3 1.8-7.8 Blood lymphocytes automated count (number/volume) 0.9 10*3 1.0-4.0 Blood monocytes automated count (number/volume) 0.9 10*3 0.0-1.0 Automated eosinophil count 0.0 10*3/uL 0.0-0.3 Automated blood basophil count (count/volume) 0.0 10*3/uL 0.0-0.1 PT panel in platelet poor plasma by coagulation assay - 07/04/17 15:03 Prothrombin time (PT) in platelet poor plasma by coagulation assay 12.3 s 12.2-14.7 INR in platelet poor plasma or blood by coagulation assay 0.9 0.8-1.4 Activated partial thromboplastin time (aPTT) in platelet poor plasma bycoagulation assay - 07/04/17 15:03 Activated partial thromboplastin time (aPTT) in platelet poor plasma bycoagulation assay 35 s 24-35 Comprehensive metabolic panel - 07/04/17 15:03 Serum or plasma sodium measurement (moles/volume) 129 mmol/L 135-145 Serum or plasma potassium measurement (moles/volume) 3.6 mmol/L 3.6-5.0 Serum or plasma chloride measurement (moles/volume) 94 mmol/L 98-107 Carbon dioxide 23 mmol/L 21-32 Serum or plasma anion gap determination (moles/volume) 12 mmol/L 5-14 Serum or plasma urea nitrogen measurement (mass/volume) 21 mg/dL 7-18 Serum or plasma creatinine measurement (mass/volume) 0.95 mg/dL 0.60-1.30 Serum or plasma urea nitrogen/creatinine mass ratio 22 NRG Serum or plasma creatinine measurement with calculation of estimated glomerular filtration rate > NRG Serum or plasma glucose measurement (mass/volume) 117 mg/dL 70-105 Serum or plasma calcium measurement (mass/volume) 9.1 mg/dL 8.5-10.1 Serum or plasma total bilirubin measurement (mass/volume) 0.3 mg/dL 0.1-1.0 Serum or plasma alkaline phosphatase measurement (enzymatic activity/volume) 69 U/L 40-136 Serum or plasma aspartate aminotransferase measurement (enzymatic activity/ volume) 27 U/L 5-34 Serum or plasma alanine aminotransferase measurement (enzymatic activity/volume ) 20 U/L 0-55 Serum or plasma protein measurement (mass/volume) 6.0 g/dL 6.4-8.2 Serum or plasma albumin measurement (mass/volume) 3.4 g/dL 3.2-4.5 Blood manual differential performed detection - 07/04/17 15:03 Blood monocytes/100 leukocytes 4 % NRG Manual blood segmented neutrophils/100 leukocytes 85 % NRG Blood band neutrophils/100 leukocytes 9 % NRG Manual blood lymphocytes/100 leukocytes 2 % NRG Manual eosinophils/100 leukocytes in nose 0 % NRG Manual blood basophils/100 leukocytes 0 % NRG Blood erythrocyte morphology finding identification NORMAL NRG Influenza virus A and B antigen detection - 07/04/17 15:14 FLU RESULT NEGATIVE FOR INFLUENZA A AND B ANTIGENS BY IA NRG Blood lactic acid measurement (moles/volume) - 07/04/17 15:24 Blood lactic acid measurement (moles/volume) 1.52 mmol/L 0.50-2.00 Bacterial blood culture - 07/04/17 15:24 Bacterial blood culture NG NRG Bacterial blood culture - 07/04/17 15:33 Bacterial blood culture NG NRG Complete urinalysis with reflex to culture - 07/04/17 17:42 Urine color determination YELLOW NRG Urine clarity determination CLEAR NRG Urine pH measurement by test strip 6 5-9 Specific gravity of urine by test strip 1.020 1.016- 1.022 Urine protein assay by test strip, semi-quantitative 2+ NEGATIVE Urine glucose detection by automated test strip 1+ NEGATIVE Erythrocytes detection in urine sediment by light microscopy NEGATIVE NEGATIVE Urine ketones detection by automated test strip 1+ NEGATIVE Urine nitrite detection by test strip NEGATIVE NEGATIVE Urine total bilirubin detection by test strip NEGATIVE NEGATIVE Urine urobilinogen measurement by automated test strip (mass/volume) NORMAL NORMAL Urine leukocyte esterase detection by dipstick NEGATIVE NEGATIVE Automated urine sediment erythrocyte count by microscopy (number/high power field) NONE NRG Automated urine sediment leukocyte count by microscopy (number/high power field ) [HPF] NRG Bacteria detection in urine sediment by light microscopy NEGATIVE NRG Crystals detection in urine sediment by light microscopy PRESENT NRG Casts detection in urine sediment by light microscopy NONE NRG Mucus detection in urine sediment by light microscopy NEGATIVE NRG Complete urinalysis with reflex to culture NO NRG Calcium oxalate crystals detection in urine sediment by light microscopy FEW NRG Complete blood count (CBC) with automated white blood cell (WBC) differential - 07/05/17 04:11 Blood leukocytes automated count (number/volume) 19.0 10*3/uL 4.3-11.0 Blood erythrocytes automated count (number/volume) 3.28 10*6/uL 4.35-5.85 Venous blood hemoglobin measurement (mass/volume) 10.7 g/dL 13.3-17.7 Blood hematocrit (volume fraction) 29 % 40-54 Automated erythrocyte mean corpuscular volume 90 [foz_us] 80-99 Automated erythrocyte mean corpuscular hemoglobin (mass per erythrocyte) 33 pg 25-34 Automated erythrocyte mean corpuscular hemoglobin concentration measurement ( mass/volume) 36 g/dL 32-36 Automated erythrocyte distribution width ratio 12.2 % 10.0-14.5 Automated blood platelet count (count/volume) 237 10*3/uL 130-400 Automated blood platelet mean volume measurement 9.3 [foz_us] 7.4-10.4 Automated blood neutrophils/100 leukocytes 90 % 42-75 Automated blood lymphocytes/100 leukocytes 5 % 12-44 Blood monocytes/100 leukocytes 4 % 0-12 Automated blood eosinophils/100 leukocytes 0 % 0-10 Automated blood basophils/100 leukocytes 0 % 0-10 Blood neutrophils automated count (number/volume) 17.2 10*3 1.8-7.8 Blood lymphocytes automated count (number/volume) 1.0 10*3 1.0-4.0 Blood monocytes automated count (number/volume) 0.8 10*3 0.0-1.0 Automated eosinophil count 0.0 10*3/uL 0.0-0.3 Automated blood basophil count (count/volume) 0.0 10*3/uL 0.0-0.1 Comprehensive metabolic panel - 07/05/17 04:11 Serum or plasma sodium measurement (moles/volume) 131 mmol/L 135-145 Serum or plasma potassium measurement (moles/volume) 3.3 mmol/L 3.6-5.0 Serum or plasma chloride measurement (moles/volume) 98 mmol/L 98-107 Carbon dioxide 22 mmol/L 21-32 Serum or plasma anion gap determination (moles/volume) 11 mmol/L 5-14 Serum or plasma urea nitrogen measurement (mass/volume) 18 mg/dL 7-18 Serum or plasma creatinine measurement (mass/volume) 0.81 mg/dL 0.60-1.30 Serum or plasma urea nitrogen/creatinine mass ratio 22 NRG Serum or plasma creatinine measurement with calculation of estimated glomerular filtration rate > NRG Serum or plasma glucose measurement (mass/volume) 87 mg/dL 70-105 Serum or plasma calcium measurement (mass/volume) 8.5 mg/dL 8.5-10.1 Serum or plasma total bilirubin measurement (mass/volume) 0.3 mg/dL 0.1-1.0 Serum or plasma alkaline phosphatase measurement (enzymatic activity/volume) 67 U/L 40-136 Serum or plasma aspartate aminotransferase measurement (enzymatic activity/ volume) 25 U/L 5-34 Serum or plasma alanine aminotransferase measurement (enzymatic activity/volume ) 16 U/L 0-55 Serum or plasma protein measurement (mass/volume) 5.3 g/dL 6.4-8.2 Serum or plasma albumin measurement (mass/volume) 3.0 g/dL 3.2-4.5 Complete blood count (CBC) with automated white blood cell (WBC) differential - 07/06/17 05:00 Blood leukocytes automated count (number/volume) 10.4 10*3/uL 4.3-11.0 Blood erythrocytes automated count (number/volume) 3.11 10*6/uL 4.35-5.85 Venous blood hemoglobin measurement (mass/volume) 10.1 g/dL 13.3-17.7 Blood hematocrit (volume fraction) 28 % 40-54 Automated erythrocyte mean corpuscular volume 91 [foz_us] 80-99 Automated erythrocyte mean corpuscular hemoglobin (mass per erythrocyte) 33 pg 25-34 Automated erythrocyte mean corpuscular hemoglobin concentration measurement ( mass/volume) 36 g/dL 32-36 Automated erythrocyte distribution width ratio 12.4 % 10.0-14.5 Automated blood platelet count (count/volume) 216 10*3/uL 130-400 Automated blood platelet mean volume measurement 9.5 [foz_us] 7.4-10.4 Automated blood neutrophils/100 leukocytes 88 % 42-75 Automated blood lymphocytes/100 leukocytes 8 % 12-44 Blood monocytes/100 leukocytes 4 % 0-12 Automated blood eosinophils/100 leukocytes 0 % 0-10 Automated blood basophils/100 leukocytes 0 % 0-10 Blood neutrophils automated count (number/volume) 9.1 10*3 1.8-7.8 Blood lymphocytes automated count (number/volume) 0.8 10*3 1.0-4.0 Blood monocytes automated count (number/volume) 0.4 10*3 0.0-1.0 Automated eosinophil count 0.0 10*3/uL 0.0-0.3 Automated blood basophil count (count/volume) 0.0 10*3/uL 0.0-0.1 Comprehensive metabolic panel - 07/06/17 05:00 Serum or plasma sodium measurement (moles/volume) 131 mmol/L 135-145 Serum or plasma potassium measurement (moles/volume) 3.2 mmol/L 3.6-5.0 Serum or plasma chloride measurement (moles/volume) 98 mmol/L 98-107 Carbon dioxide 21 mmol/L 21-32 Serum or plasma anion gap determination (moles/volume) 12 mmol/L 5-14 Serum or plasma urea nitrogen measurement (mass/volume) 14 mg/dL 7-18 Serum or plasma creatinine measurement (mass/volume) 0.82 mg/dL 0.60-1.30 Serum or plasma urea nitrogen/creatinine mass ratio 17 NRG Serum or plasma creatinine measurement with calculation of estimated glomerular filtration rate > NRG Serum or plasma glucose measurement (mass/volume) 106 mg/dL 70-105 Serum or plasma calcium measurement (mass/volume) 8.3 mg/dL 8.5-10.1 Serum or plasma total bilirubin measurement (mass/volume) 0.3 mg/dL 0.1-1.0 Serum or plasma alkaline phosphatase measurement (enzymatic activity/volume) 55 U/L 40-136 Serum or plasma aspartate aminotransferase measurement (enzymatic activity/ volume) 25 U/L 5-34 Serum or plasma alanine aminotransferase measurement (enzymatic activity/volume ) 17 U/L 0-55 Serum or plasma protein measurement (mass/volume) 5.0 g/dL 6.4-8.2 Serum or plasma albumin measurement (mass/volume) 2.9 g/dL 3.2-4.5 Complete blood count (CBC) with automated white blood cell (WBC) differential - 07/07/17 06:20 Blood leukocytes automated count (number/volume) 10.0 10*3/uL 4.3-11.0 Blood erythrocytes automated count (number/volume) 3.04 10*6/uL 4.35-5.85 Venous blood hemoglobin measurement (mass/volume) 10.1 g/dL 13.3-17.7 Blood hematocrit (volume fraction) 27 % 40-54 Automated erythrocyte mean corpuscular volume 90 [foz_us] 80-99 Automated erythrocyte mean corpuscular hemoglobin (mass per erythrocyte) 33 pg 25-34 Automated erythrocyte mean corpuscular hemoglobin concentration measurement ( mass/volume) 37 g/dL 32-36 Automated erythrocyte distribution width ratio 12.1 % 10.0-14.5 Automated blood platelet count (count/volume) 206 10*3/uL 130-400 Automated blood platelet mean volume measurement 9.1 [foz_us] 7.4-10.4 Automated blood neutrophils/100 leukocytes 87 % 42-75 Automated blood lymphocytes/100 leukocytes 9 % 12-44 Blood monocytes/100 leukocytes 4 % 0-12 Automated blood eosinophils/100 leukocytes 0 % 0-10 Automated blood basophils/100 leukocytes 0 % 0-10 Blood neutrophils automated count (number/volume) 8.7 10*3 1.8-7.8 Blood lymphocytes automated count (number/volume) 0.9 10*3 1.0-4.0 Blood monocytes automated count (number/volume) 0.4 10*3 0.0-1.0 Automated eosinophil count 0.0 10*3/uL 0.0-0.3 Automated blood basophil count (count/volume) 0.0 10*3/uL 0.0-0.1 Comprehensive metabolic panel - 07/07/17 06:20 Serum or plasma sodium measurement (moles/volume) 127 mmol/L 135-145 Serum or plasma potassium measurement (moles/volume) 3.5 mmol/L 3.6-5.0 Serum or plasma chloride measurement (moles/volume) 97 mmol/L 98-107 Carbon dioxide 21 mmol/L 21-32 Serum or plasma anion gap determination (moles/volume) 9 mmol/L 5-14 Serum or plasma urea nitrogen measurement (mass/volume) 10 mg/dL 7-18 Serum or plasma creatinine measurement (mass/volume) 0.74 mg/dL 0.60-1.30 Serum or plasma urea nitrogen/creatinine mass ratio 14 NRG Serum or plasma creatinine measurement with calculation of estimated glomerular filtration rate > NRG Serum or plasma glucose measurement (mass/volume) 98 mg/dL 70-105 Serum or plasma calcium measurement (mass/volume) 8.0 mg/dL 8.5-10.1 Serum or plasma total bilirubin measurement (mass/volume) 0.3 mg/dL 0.1-1.0 Serum or plasma alkaline phosphatase measurement (enzymatic activity/volume) 56 U/L 40-136 Serum or plasma aspartate aminotransferase measurement (enzymatic activity/ volume) 30 U/L 5-34 Serum or plasma alanine aminotransferase measurement (enzymatic activity/volume ) 19 U/L 0-55 Serum or plasma protein measurement (mass/volume) 5.0 g/dL 6.4-8.2 Serum or plasma albumin measurement (mass/volume) 2.8 g/dL 3.2-4.5 Complete urinalysis with reflex to culture - 09/26/17 00:00 Urine color determination YELLOW NRG Urine clarity determination CLEAR NRG Urine pH measurement by test strip 6 5-9 Specific gravity of urine by test strip 1.020 1.016- 1.022 Urine protein assay by test strip, semi-quantitative 1+ NEGATIVE Urine glucose detection by automated test strip 1+ NEGATIVE Erythrocytes detection in urine sediment by light microscopy 2+ NEGATIVE Urine ketones detection by automated test strip NEGATIVE NEGATIVE Urine nitrite detection by test strip NEGATIVE NEGATIVE Urine total bilirubin detection by test strip NEGATIVE NEGATIVE Urine urobilinogen measurement by automated test strip (mass/volume) 1 mg/dL NORMAL Urine leukocyte esterase detection by dipstick 2+ NEGATIVE Automated urine sediment erythrocyte count by microscopy (number/high power field) RARE NRG Automated urine sediment leukocyte count by microscopy (number/high power field ) [HPF] NRG Bacteria detection in urine sediment by light microscopy NEGATIVE NRG Squamous epithelial cells detection in urine sediment by light microscopy NONE NRG Crystals detection in urine sediment by light microscopy PRESENT NRG Casts detection in urine sediment by light microscopy NONE NRG Mucus detection in urine sediment by light microscopy NEGATIVE NRG Complete urinalysis with reflex to culture NO NRG Calcium oxalate crystals detection in urine sediment by light microscopy LARGE NRG Complete blood count (CBC) with automated white blood cell (WBC) differential - 05/13/18 07:05 Blood leukocytes automated count (number/volume) 13.0 10*3/uL 4.3-11.0 Blood erythrocytes automated count (number/volume) 3.79 10*6/uL 4.35-5.85 Venous blood hemoglobin measurement (mass/volume) 12.3 g/dL 13.3-17.7 Blood hematocrit (volume fraction) 35 % 40-54 Automated erythrocyte mean corpuscular volume 93 [foz_us] 80-99 Automated erythrocyte mean corpuscular hemoglobin (mass per erythrocyte) 33 pg 25-34 Automated erythrocyte mean corpuscular hemoglobin concentration measurement ( mass/volume) 35 g/dL 32-36 Automated erythrocyte distribution width ratio 12.4 % 10.0-14.5 Automated blood platelet count (count/volume) 231 10*3/uL 130-400 Automated blood platelet mean volume measurement 9.4 [foz_us] 7.4-10.4 Automated blood neutrophils/100 leukocytes 78 % 42-75 Automated blood lymphocytes/100 leukocytes 6 % 12-44 Blood monocytes/100 leukocytes 14 % 0-12 Automated blood eosinophils/100 leukocytes 2 % 0-10 Automated blood basophils/100 leukocytes 0 % 0-10 Blood neutrophils automated count (number/volume) 10.1 10*3 1.8-7.8 Blood lymphocytes automated count (number/volume) 0.8 10*3 1.0-4.0 Blood monocytes automated count (number/volume) 1.8 10*3 0.0-1.0 Automated eosinophil count 0.3 10*3/uL 0.0-0.3 Automated blood basophil count (count/volume) 0.0 10*3/uL 0.0-0.1 Encounters ACCT No. Visit Date/Time Discharge Status Pt. Type Provider Facility Loc./Unit Complaint [id number] 10/06/2014 09:00:00 10/06/2014 23:59:59 CLS Outpatient MENDOZA CHACONMANJINDER SCOTT SABINA N [id number] 10/04/2014 11:23:00 10/04/2014 23:59:59 CLS Outpatient DONALDSON VALENTIN RODRIGUEZMartine SABINA N [id number] 10/04/2014 11:23:00 10/04/2014 23:59:59 CLS Outpatient DONALDSON INESMANJINDER SCOTT SABINA N [id number] 08/02/2014 11:21:00 08/02/2014 23:59:59 CLS Outpatient DONALDSONSABINA ANGELO APRN [id number] 02/22/2014 07:52:00 02/22/2014 23:59:59 CLS Outpatient DONALDSONSABINA ANGELO APRN [id number] 02/11/2014 09:03:00 02/11/2014 23:59:59 CLS Outpatient MCKENZIE PRESCOTT DPM [id number] 02/11/2014 09:03:00 02/11/2014 23:59:59 CLS Outpatient AILYN AVILA DO [id number] 11/23/2013 08:53:00 11/23/2013 23:59:59 CLS Outpatient DONALDSONSABINA ANGELO APRN [id number] 11/23/2013 08:53:00 11/23/2013 23:59:59 CLS Outpatient SABINA CHOE APRN [id number] 11/12/2013 10:10:00 11/12/2013 23:59:59 CLS Outpatient AILYN AVILA DO [id number] 09/28/2013 07:42:00 09/28/2013 23:59:59 CLS Outpatient SABINA CHOE APRN [id number] 09/28/2013 07:42:00 09/28/2013 23:59:59 CLS Outpatient SABINA CHOE APRN [id number] 08/19/2013 08:12:00 08/19/2013 23:59:59 CLS Outpatient SABINA CHOE APRN [id number] 05/18/2013 07:56:00 05/18/2013 23:59:59 CLS Outpatient AILYN AVILA DO [id number] 02/16/2013 08:24:00 02/16/2013 23:59:59 CLS Outpatient SABINA CHOE APRN [id number] 07/23/2012 11:24:00 07/23/2012 23:59:59 CLS Outpatient [id number] 07/20/2012 09:34:00 07/20/2012 23:59:59 CLS Outpatient [id number] 07/20/2012 09:34:00 07/20/2012 23:59:59 CLS Outpatient BARBER YO APRN [id number] 07/08/2012 14:32:00 07/08/2012 23:59:59 CLS Outpatient [id number] 04/17/2012 11:30:00 04/17/2012 23:59:59 CLS Outpatient BARBER YO APRN [id number] 02/16/2013 08:24:00 Document Registration [id number] 02/12/2013 09:53:00 Document Registration [id number] 11/12/2012 08:59:00 Document Registration [id number] 11/05/2012 11:02:00 Document Registration [id number] 10/22/2012 08:46:00 Document Registration [id number] 10/15/2012 16:21:00 Document Registration [id number] 09/26/2017 11:58:00 09/26/2017 23:59:59 CLS Outpatient CARLOS OSHEA MD [facility] MLF UA CULTURE [id number] 07/04/2017 17:51:00 07/07/2017 13:00:00 DIS In[address] CARLA PLATT [address] [id number] 2015 19:21:00 2015 23:59:59 CLS Outpatient CARLOS OSHEA MD [facility] MLF UTI [id number] 11/17/2015 18:50:00 11/21/2015 14:37:00 DIS Inpatient CRISTO VILLAVICENCIO MD [facility] 4TH INTERTRECHANTERIC HIP FX, CHRONIC HYPONATREMIA [id number] 05/10/2015 09:28:00 05/11/2015 10:55:00 DIS Outpatient CORNELIUS URENA MD [facility] PAD,CAD,TOBACCOISM,HLP [id number] 04/26/2015 06:00:00 04/27/2015 10:10:00 DIS Out[facility] SHELBI DPM[facility] [id number] 04/24/2015 09:24:00 04/24/2015 23:59:59 CLS Outpatient SHELBI DPM, MCKENZIE Q [facility] PREOP OSTEOMYLITIS LEFT FIRST TOE [id number] 04/12/2015 09:33:00 04/13/2015 12:00:00 DIS Outpatient CORNELIUS URENA MD [facility] CAD,CT,HLP,HTN,ABNORMAL STRESS [id number] 04/10/2015 06:52:00 04/10/2015 23:59:59 CLS Outpatient CORNELIUS URENA MD [facility] CARD IDDM,PAD,ULCERATION OF FOOT [id number] 04/04/2015 12:09:00 04/04/2015 15:00:00 DIS Outpatient RIK MELCHOR MD [facility] WOUNDCARE [id number] 02/11/2015 20:50:00 02/14/2015 13:50:00 DIS Inpatient CRISTO VILLAVICENCIO MD [facility] 4TH S/P FALLS; HEAD CONTUSION ;INABILITY TO CARE FOR [id number] 02/02/2015 14:30:00 02/02/2015 17:00:00 DIS Emergency TMAIKO CASTRO [facility] ER FALL/DIZZY [id number] 01/18/2015 19:31:00 01/20/2015 10:30:00 DIS Inpatient AUSTIN DO, AILYN K [facility] 4TH VOLUME DEPLETION,DEBILITY ,CHRONIC HYPONATREMIA,DM [id number] 01/10/2015 12:47:00 01/18/2015 15:25:00 DIS Inpatient LEON OWUSU, VIRAL Ramirez [facility] IRF WEAKNESS [id number] 01/06/2015 13:39:00 01/10/2015 11:00:00 DIS Inpatient DORIE OWUSU, CARLOS Jackson [facility] 4TH HYPONATREMIA GENERALIZED WEAKNESS [id number] 05/13/2018 07:01:00 ACT Emergency ATNVIR OWUSU, GUILLERMINA Mendoza [facility] ER STROKE [id number] 04/04/2015 12:08:00 Document Registration [id number] 04/04/2015 12:08:00 Document Registration [id number] 04/04/2015 12:08:00 Document Registration [id number] 02/04/2012 16:20:00 Document Registration [id number] 04/04/2015 12:09:43 ACT Document Registration
[2018-05-13 07:53] LABS: ALANINE AMINOTRANSFERASE 13 U/L (0-55); ALBUMIN 4.2 GM/DL (3.2-4.5); ALKALINE PHOSPHATASE 73 U/L (40-136); BILIRUBIN,TOTAL 0.7 MG/DL (0.1-1.0); BUN/CREATININE RATIO 18; CALCIUM 9.9 MG/DL (8.5-10.1); CARBON DIOXIDE 25 MMOL/L (21-32); CHLORIDE 94 MMOL/L (98-107); CREATININE SERUM 0.91 MG/DL (0.60-1.30); GFR ESTIMATED > 60; GLUCOSE 127 MG/DL (70-105); POTASSIUM 4.5 MMOL/L (3.6-5.0); SODIUM 129 MMOL/L (135-145)
[2018-05-13 08:01] LABS: BAND NEUTROPHILS 2 %; EOSINOPHILS % (MANUAL) 2 %; LYMPHOCYTES % (MANUAL) 2 %; MONOCYTES % (MANUAL) 10 %; NEUTROPHILS % (MANUAL) 83 %; REACTIVE LYMPHOCYTES 1 %
[2018-05-13 08:02] LABS: RBC MORPH NORMAL
[2018-05-13] MEDS ORDERED: PIPERACILLIN SODIUM/TAZOBACTAM 4.5 GM in NS (IVPB) 100 ML IV ONE (08:15)
--- NOTE | 2018-05-13 08:18 | Diagnostic Imaging Report ---
Indication: Altered mental status. Portable chest 7:46 AM Heart size and pulmonary vascularity are normal. Lungs are clear. There are no effusions or pneumothoraces. Impression: Negative chest. Dictated by: Dictated on workstation # [id number]
--- NOTE | 2018-05-13 08:40 | Diagnostic Imaging Report ---
PROCEDURE: CT head wo r/o stroke. TECHNIQUE: Multiple contiguous axial images were obtained through the brain without the use of intravenous contrast. INDICATION: Generalized weakness and pain The ventricles are normal in size, shape and position. There are no masses or hemorrhages. There are no extra-axial fluid collections. IMPRESSION: No acute abnormality seen in the head. Dictated by: Dictated on workstation # [id number]
--- NOTE | 2018-05-13 09:04 | ED General ---
General Chief Complaint: Fever-Adult/Adol Stated Complaint: STROKE Nursing Triage Note: PT TO ROOM 6 BY EMS. PT HAS FEVER AND ALTERED MENTAL STATUS THIS AM. PT STATES 2 DAYS AGO WAS RED. UNABLE TO DO NIH D/T INABLILITY TO FOLLOW DIRECTIONS. PT IS ALERT FOR SOME ? BUT IS UNABLE TO FOLLOW SOME DIRECTIONS. PT HAS SL IN L WRIST #20. PT FSBS FOR EMS 136 Nursing Sepsis Screen: No Definite Risk Source of Information: Patient, EMS Exam Limitations: Physical Impairments History of Present Illness Date Seen by Provider: May 13, 2018 Time Seen by Provider: 07:05 Initial Comments Here by EMS with report of altered mental status this morning. Noted to have a temperature of 101. long-term reported that he was weak and occasionally not talking and leaning to the left. Unsure of exact onset of symptoms but noted this morning. Patient does have history of smoking and history of urinary tract infections. Does intermittently answer questions appropriately. No focal deficits with respect to strength. Does appear to be globally weak but is moving all 4 extremities. Denies nausea or vomiting. Denies chest pain or breathing problems. Patient is poor historian which limits the history. Timing/Duration: 1 Hour, Changing Over Time Severity: Moderate Associated Systoms: No Chest Pain; Cough, Fever/Chills; No Headaches, No Nausea /Vomiting, No Shortness of Air; Weakness Allergies and Home Medications Allergies Coded Allergies: Cephalexin Monohydrate (Unverified Allergy, Unknown, 02/02/15) Home Medications Acetaminophen 500 Mg Tablet, 1,000 MG PO Q6H PRN for PAIN-MILD, (Reported) TAKES 2 (500 MG) TABLETS / MAY ALSO TAKE FOR ELEVATED TEMPERATURE / NOT TO EXCEED 3GM/24 HOURS Amoxicillin/Potassium Clav 1 Each Tablet, 1 EACH PO BID Prescribed by: CARLA PLATT on 07/07/17 1055 Aspirin 81 Mg Tablet.dr, 81 MG PO DAILY, (Reported) Calcium Carbonate 400 Mg Tab.chew, 800 MG PO Q12H PRN for HEARTBURN, (Reported) TAKES 2 (400 MG) TABLETS Cholecalciferol (Vitamin D3) 1,000 Unit Capsule, 2,000 UNITS PO DAILY, (Reported ) TAKES 2 (1,000 UNIT) CAPSULES Clopidogrel Bisulfate 75 Mg Tablet, 75 MG PO DAILY, (Reported) Desvenlafaxine Succinate 50 Mg Tab.er.24h, 50 MG PO DAILY, (Reported) Ferrous Sulfate 325 Mg Tablet, 325 MG PO DAILY, (Reported) Folic Acid 1 Mg Tablet, 1 MG PO DAILY, (Reported) Gabapentin 400 Mg Capsule, 400 MG PO TID, (Reported) Guaifenesin 100 Mg/5 Ml Liquid, 15 ML PO Q6H PRN for COUGH, (Reported) Ibuprofen 800 Mg Tablet, 800 MG PO Q8H, (Reported) Ipratropium/Albuterol Sulfate 3 Ml Ampul.neb, 3 ML IH Q6H PRN for SHORTNESS OF BREATH Prescribed by: CARLA PLATT on 07/07/17 1055 Lactobac Cmb #3/Fos/Pantethine 1 Each Capsule, 1 CAP PO HS, (Reported) Lurasidone HCl 20 Mg Tablet, 20 MG PO DAILY, (Reported) Menthol 5.8 Mg Lozenge, 5.8 MG MM EVERY 2-4 HOURS PRN for COUGH, (Reported) Menthol/Lanolin/Calamine/Znox 71 Gm Oint, TP PRN PRN for REDNESS, (Reported) Metformin HCl 1,000 Mg Tablet, 1,000 MG PO BID, (Reported) Multivits,Stress Formula/Zinc 1 Each Tablet, 1 TAB PO DAILY, (Reported) Pioglitazone HCl 45 Mg Tablet, 45 MG PO DAILY, (Reported) Polyethylene Glycol 3350 17 Gm Powd.pack, 17 GM PO DAILY PRN PRN for CONSTIPATION-2ND LINE, (Reported) Rivastigmine Tartrate 1.5 Mg Capsule, 1.5 MG PO BID, (Reported) Simvastatin 40 Mg Tablet, 40 MG PO HS, (Reported) Patient Home Medication List Home Medication List Reviewed: Yes Review of Systems Review of Systems Constitutional: see HPI; No chills; fever EENTM: no symptoms reported Respiratory: No cough, No short of breath Cardiovascular: No chest pain, No edema Gastrointestinal: No abdominal pain, No nausea, No vomiting Genitourinary: see HPI; No pain Musculoskeletal: no symptoms reported Skin: no symptoms reported Psychiatric/Neurological: See HPI, Weakness All Other Systems Reviewed Negative Unless Noted: Yes Past Hifngne-Pmzffh-Gptpax Hx Past Med/Social Hx: Reviewed Nursing Past Med/Soc Hx Patient Social History Alcohol Use: Denies Use Recreational Drug Use: No Smoking Status: Current Everyday Smoker Type Used: Cigarettes Recent Foreign Travel: No Contact w/Someone Who Travel: No Recent Infectious Disease Expo: No Recent Hopitalizations: No Physical Abuse: No Sexual Abuse: No Immunizations Up To Date Tetanus Booster (TDap): Unknown Date of Pneumonia Vaccine: May 13, 2017 Date of Influenza Vaccine: Mar 23, 2017 Seasonal Allergies Seasonal Allergies: No Past Medical History Surgeries: Yes Respiratory: Yes COPD Currently Using CPAP: No Currently Using BIPAP: No Cardiac: Yes Coronary Artery Disease Neurological: Yes Stroke Reproductive Disorders: No Sexually Transmitted Disease: No HIV/AIDS: No Genitourinary: Yes Neurogenic Bladder Gastrointestinal: Yes Gastroesophageal Reflux Musculoskeletal: Yes (amputation lt toes) Amputee, Arthritis Endocrine: Yes (pt states he is not DM; but takes several medications) Diabetes, Insulin dep HEENT: Yes Loss of Vision: Bilateral Hearing Impairment: Hard of Hearing Cancer: No Psychosocial: Yes ADD/ADHD, Anxiety, Bipolar, Depression Integumentary: No Blood Disorders: No Adverse Reaction/Blood Tranf: No Family Medical History Reviewed Nursing Family Hx No Pertinent Family Hx Physical Exam-Suspected Sepsis Physical Exam Vital Signs Vital Signs - First Documented 05/13/18 05/13/18 07:00 07:49 Temp 100.6 Pulse 102 Resp 22 B/P (MAP) 162/78 (106) Pulse Ox 96 O2 Delivery Room Air Capillary Refill : Less Than 3 Seconds Blood Pressure Mean: 106 Height, Weight, BMI Height: 6'0" Weight: 205lbs. 0.0oz. 92.646953zg; 21.6 BMI Method:Stated General Appearance: No Apparent Distress, Chronically ill, Mild Distress HEENT: PERRL/EOMI, Pharynx Normal Neck: Non Tender, Supple Respiratory: Decreased Breath Sounds, Wheezing Cardiovascular: No Murmur, Tachycardia Gastrointestinal: Non Tender, Soft Back: Normal Inspection, No CVA Tenderness, No Vertebral Tenderness Extremity: Normal Range of Motion, Non Tender Neurologic/Psychiatric: Alert, Motor Weakness, Other (global attempted stroke scale but patient has confusion which limits the scale. He does move all extremities and track with his eyes. There does not appear to be any facial droop. He does answer some questions appropriately but appears confused while answering others. Unable to complete stroke scale due to inability to follow directions well.) Skin: normal color, warm/dry Focused Exam Lactate Level 05/13/18 07:05: Lactic Acid Level 0.78 Lactic Acid Level Laboratory Tests Test 05/13/18 07:05 Lactic Acid Level 0.78 MMOL/L (0.50-2.00) Progress/Results/Core Measures Suspected Sepsis Recent Fever Within 48 Hours: No Infection Criteria Present: None New/Unexplained Altered Menta: No Sepsis Screen: No Definite Risk SIRS Temperature:100.6 Pulse: 102 Respiratory Rate: 22 Laboratory Tests 05/13/18 07:05: White Blood Count 13.0H Blood Pressure 162 /78 Mean: 106 05/13/18 07:05: Lactic Acid Level 0.78 Laboratory Tests 05/13/18 07:05: Creatinine 0.91, INR Comment 1.0, Platelet Count 231, Total Bilirubin 0.7 Results/Orders Lab Results Laboratory Tests Test 05/13/18 07:05 05/13/18 07:15 Range/Units White Blood Count 13.0 H 4.3-11.0 10^3/uL Red Blood Count 3.79 L 4.35-5.85 10^6/uL Hemoglobin 12.3 L 13.3-17.7 G/DL Hematocrit 35 L 40-54 % Mean Corpuscular Volume 93 80-99 FL Mean Corpuscular Hemoglobin 33 25-34 PG Mean Corpuscular Hemoglobin Concent 35 32-36 G/DL Red Cell Distribution Width 12.4 10.0-14.5 % Platelet Count 231 130-400 10^3/uL Mean Platelet Volume 9.4 7.4-10.4 FL Neutrophils (%) (Auto) 78 H 42-75 % Lymphocytes (%) (Auto) 6 L 12-44 % Monocytes (%) (Auto) 14 H 0-12 % Eosinophils (%) (Auto) 2 0-10 % Basophils (%) (Auto) 0 0-10 % Neutrophils # (Auto) 10.1 H 1.8-7.8 X 10^3 Lymphocytes # (Auto) 0.8 L 1.0-4.0 X 10^3 Monocytes # (Auto) 1.8 H 0.0-1.0 X 10^3 Eosinophils # (Auto) 0.3 0.0-0.3 10^3/uL Basophils # (Auto) 0.0 0.0-0.1 10^3/uL Neutrophils % (Manual) 83 % Lymphocytes % (Manual) 2 % Monocytes % (Manual) 10 % Eosinophils % (Manual) 2 % Band Neutrophils 2 % Reactive Lymphocytes 1 % Blood Morphology Comment NORMAL Prothrombin Time 12.7 12.2-14.7 SEC INR Comment 1.0 0.8-1.4 Activated Partial Thromboplast Time 31 24-35 SEC D-Dimer 0.87 H 0.00-0.49 UG/ML Sodium Level 129 L 135-145 MMOL/L Potassium Level 4.5 3.6-5.0 MMOL/L Chloride Level 94 L 98-107 MMOL/L Carbon Dioxide Level 25 21-32 MMOL/L Anion Gap 10 5-14 MMOL/L Blood Urea Nitrogen 16 7-18 MG/DL Creatinine 0.91 0.60-1.30 MG/DL Estimat Glomerular Filtration Rate > 60 BUN/Creatinine Ratio 18 Glucose Level 127 H 70-105 MG/DL Lactic Acid Level 0.78 0.50-2.00 MMOL/L Calcium Level 9.9 8.5-10.1 MG/DL Corrected Calcium 9.7 8.5-10.1 MG/DL Total Bilirubin 0.7 0.1-1.0 MG/DL Aspartate Amino Transf (AST/SGOT) 15 5-34 U/L Alanine Aminotransferase (ALT/SGPT) 13 0-55 U/L Alkaline Phosphatase 73 40-136 U/L Total Protein 7.0 6.4-8.2 GM/DL Albumin 4.2 3.2-4.5 GM/DL Urine Color YELLOW Urine Clarity VERY CLOUDY H Urine pH 5 5-9 Urine Specific Wesley 1.020 1.016-1.022 Urine Protein 3+ H NEGATIVE Urine Glucose (UA) 2+ H NEGATIVE Urine Ketones 2+ H NEGATIVE Urine Nitrite POSITIVE H NEGATIVE Urine Bilirubin NEGATIVE NEGATIVE Urine Urobilinogen 1 NORMAL MG/DL Urine Leukocyte Esterase 3+ H NEGATIVE Urine RBC (Auto) 5+ H NEGATIVE Urine RBC 50-100 H /HPF Urine WBC TNTC H /HPF Urine Crystals NONE /LPF Urine Bacteria LARGE H /HPF Urine Casts NONE /LPF Urine Mucus NEGATIVE /LPF Urine Culture Indicated NO My Orders Orders - GUILLERMINA RAMEY MD Cbc With Automated Diff (05/13/18 07:13) Comprehensive Metabolic Panel (05/13/18 07:13) Blood Culture (05/13/18 07:13) Sputum Culture (05/13/18 07:13) Urinalysis (05/13/18 07:13) Urine Culture (05/13/18 07:13) Protime With Inr (05/13/18 07:13) Partial Thromboplastin Time (05/13/18 07:13) Chest 1 View, Ap/Pa Only (05/13/18 07:13) Saline Lock/Iv-Start (05/13/18 07:13) Vital Signs Adult Sepsis Patie Q15M (05/13/18 07:13) O2 (05/13/18 07:13) Remove Rings In Anticipation O (05/13/18 07:13) Lactic Acid Analyzer (05/13/18 07:13) I-Stat Bedside Testing (05/13/18 07:13) Fibrin Degradation Products (05/13/18 07:13) Catheter(Urinary) Insert & Ass 03,15 (05/13/18 07:13) Nothing By Mouth (05/13/18 Lunch) Accucheck Stat ONCE (05/13/18 07:13) Vital Signs Stroke Patient Q15M (05/13/18 07:13) Ct Head Wo-R/O Stroke (05/13/18 07:13) Intake & Output 06,14,22 (05/13/18 07:13) Monitor-Rhythm Ecg Trace Only (05/13/18 07:13) Dysphagia Screening Tool (05/13/18 07:13) Lipid Panel (05/14/18 06:00) Ns Iv 1000 Ml (Sodium Chloride 0.9%) (05/13/18 07:21) Manual Differential (05/13/18 07:05) Albuterol/Ipra Inhalation Soln (Duoneb I (05/13/18 07:45) Svn Small Volume Nebulizer (05/13/18 07:43) Piperacillin Sodium/Tazobactam (Zosyn Vi (05/13/18 08:15) Nicotine Patch (Nicoderm Patch) (05/13/18 09:15) Medications Given in ED Current Medications Medications Dose Ordered Sig/Rosy Route Start Time Stop Time Status Last Admin Dose Admin Piperacillin Sod/ Tazobactam Sod 4.5 gm/Sodium Chloride 100 ml @ 200 mls/hr ONCE ONCE IV 05/13/18 08:15 05/13/18 08:44 DC 05/13/18 08:46 200 MLS/HR Sodium Chloride 1,000 ml @ ud STK-MED ONCE .ROUTE 05/13/18 07:21 05/13/18 07:23 DC 05/13/18 07:25 1,000 MLS/HR Vital Signs/I&O 05/13/18 05/13/18 07:00 07:49 Temp 100.6 Pulse 102 Resp 22 B/P (MAP) 162/78 (106) Pulse Ox 96 97 O2 Delivery Room Air Capillary Refill : Less Than 3 Seconds Blood Pressure Mean: 106 Point of Care Testing Finger Stick Blood Glucose: 136 Blood Glucose Action Taken: PER EMS Progress Note : Progress Note Seen and evaluated on arrival by EMS. IV, labs, UA, chest x-ray, CT head ordered. Attempted stroke scale evaluation the patient unable to follow commands well enough to get a good assessment. Does have movement to all 4 extremities that are equal and does not appear to have other focal neurological deficits except for confusion. Does have a temperature. Blood cultures and lactic acid been ordered. Patient is not TPA candidate due to unsure of last known well time and this appears to be more related to infectious process or other underlying process and not stroke. 0900: UA is grossly positive for urinary tract infection. Patient is allergic to cephalosporins apparently. Zosyn 4.5 g IV ordered. He did have a liter of normal saline running and we will continue that. Patient will require admission. Continue to monitor. 0940 : I did discuss the case with Dr. Platt. She accepts patient for admission, inpatient status and agrees with Zosyn. Patient agrees with plan. Patient has findings of sepsis but not septic shock or severe sepsis and does not require high-volume fluid resuscitation at this time. Diagnostic Imaging Diagonstic Imaging: Xray Plain Films/CT/US/NM/MRI: chest Comments [facility] [place], [place] NAME: CORA RODRÍGUEZ JR [facility] REC#: [id number] PT STATUS: REG ER : 1950 PHYSICIAN: GUILLERMINA RAMEY MD ADMIT DATE: 05/13/18/ER Draft Date of Exam:05/13/18 CHEST 1 VIEW, AP/PA ONLY Indication: Altered mental status. Portable chest 7:46 AM Heart size and pulmonary vascularity are normal. Lungs are clear. There are no effusions or pneumothoraces. Impression: Negative chest. Dictated on workstation # [id number] Dict: 05/13/18808 Trans: 05/13/18817 CVB [id number] Interpreted by: GUILLERMINA WRIGHT MD Electronically signed by: [facility] Imaging: CT Plain Films/CT/US/NM/MRI: head Comments NAME: CORA RODRÍGUEZ JR [facility] REC#: [id number] PT STATUS: REG ER : 1950 PHYSICIAN: GUILLERMINA RAMEY MD ADMIT DATE: 05/13/18/ER Signed Date of Exam: 05/13/18 CT HEAD WO-R/O STROKE PROCEDURE: CT head wo r/o stroke. TECHNIQUE: Multiple contiguous axial images were obtained through the brain without the use of intravenous contrast. INDICATION: Generalized weakness and pain The ventricles are normal in size, shape and position. There are no masses or hemorrhages. There are no extra-axial fluid collections. IMPRESSION: No acute abnormality seen in the head. Dictated by: Dictated on workstation # [id number] Dict: 05/13/18834 Trans: 05/13/18854 Interpreted by: GUILLERMINA WRIGHT MD Electronically signed by: GUILLERMINA WRIGHT MD 05/13/1855 Departure Communication (Admissions) Time/Spoke to Admitting Phy: 09:40 Impression Primary Impression: Urinary tract infection Qualified Codes: N30.01 - Acute cystitis with hematuria Additional Impression: Sepsis Qualified Codes: A41.9 - Sepsis, unspecified organism Disposition: ADMITTED INPATIENT Condition: Stable Admissions Decision to Admit Reason: Admit from ER (General) Decision to Admit/Date: May 13, 2018 Time/Decision to Admit Time: 09:40 Departure-Patient Inst. Referrals: CARLOS OSHEA MD (PCP/Family) Primary Care Physician GUILLERMINA RAMEY MD May 13, 2018 09:04
[2018-05-13] MEDS ORDERED: NICOTINE 21 MG (NICODERM) PATCH TD ONE (09:15)
[2018-05-13] MEDS: NICOTINE 21 MG (NICODERM) PATCH TD SCH (10:40)
--- OUTSIDE RECORDS SUMMARY | 2018-05-13 10:41 | XMS REPORT | Continuity of Care Document ---
Author Author [facility] Ctr of [facility] Ctr of [facility] Address Unknown Phone Unavailable Allergies Active Description Code Type Severity Reaction Onset Reported/Identified Relationship to Patient Clinical Status Yes Keflex Drug Allergy 01/16/2009 Yes Keflex Drug Allergy N/A N/A 01/16/2009 Yes Cephalexin Monohydrate [id number] Drug Allergy Unknown N/A 02/02/2015 Medications There [...] 02/17/2008 272.4 HYPERLIPIDEMIA UNSPECIFIED 02/17/2008 DONALDSON C[employer]ERO 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, SABINA N 250.00 DIABETES MELLITUS 02/17/2008 [employer]AL[employer]ON [employer] 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, SABINA N 250.40 NEPHROPATHY DIABETIC 02/17/2008 [employer]ALDSON [employer] 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, SABINA N 272.4 HYPERLIPIDEMIA UNSPECIFIED 02/17/2008 AVILA DO, AILYN K 250.00 DIABETES MELLITUS 02/17/2008 AVILA DO, AILYN K 250.40 NEPHROPATHY DIABETIC 02/17/2008 AVILA DO, AILYN K 272.4 HYPERLIPIDEMIA UNSPECIFIED 02/17/2008 DONALDSON C[employer] 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, SABINA N 250.00 DIABETES MELLITUS 02/17/2008 DONALDSON C[employer] 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, SABINA N 250.40 NEPHROPATHY DIABETIC 02/17/2008 DONALDSON C[employer] 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, SABINA N 272.4 HYPERLIPIDEMIA UNSPECIFIED 02/17/2008 DONAL[employer]ON C[employer] 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, SABINA N 250.00 DIABETES MELLITUS 02/17/2008 DONALDSON C[employer] 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, SABINA N 250.40 NEPHROPATHY DIABETIC 02/17/2008 DONALDSON C[employer] 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, SABINA N 272.4 HYPERLIPIDEMIA UNSPECIFIED 02/17/2008 DONALDSON C[employer] 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, SABINA N 250.00 DIABETES MELLITUS 02/17/2008 DONALDSON C[employer] 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, SABINA N 250.40 NEPHROPATHY DIABETIC 02/17/2008 DONALDSON C[employer] 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, SABINA N 272.4 HYPERLIPIDEMIA UNSPECIFIED 02/17/2008 AVILA DO, AILYN K 250.00 DIABETES MELLITUS 02/17/2008 AVILA DO, AILYN K 250.40 NEPHROPATHY DIABETIC 02/17/2008 AVILA DO, AILYN K 272.4 HYPERLIPIDEMIA UNSPECIFIED 02/17/2008 DONAL[employer]ON C[employer] 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, SABINA N 250.00 DIABETES MELLITUS 02/17/2008 DONALDSON C[employer] 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, SABINA N 250.40 NEPHROPATHY DIABETIC 02/17/2008 DONALDSON C[employer] 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, SABINA N 272.4 HYPERLIPIDEMIA UNSPECIFIED 02/17/2008 DONALDSON C[employer] 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, SABINA N 250.00 DIABETES MELLITUS 02/17/2008 DONALDSON C[employer] 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, SABINA N 250.40 NEPHROPATHY DIABETIC 02/17/2008 DONALDSON C[employer] 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, SABINA N 272.4 HYPERLIPIDEMIA UNSPECIFIED 02/17/2008 AVILA DO, AILYN K 250.00 DIABETES MELLITUS 02/17/2008 AVILA DO, AILYN K 250.40 NEPHROPATHY DIABETIC 02/17/2008 AVILA DO, AILYN K 272.4 HYPERLIPIDEMIA UNSPECIFIED 02/17/2008 DONALDSON C[employer] 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, SABINA N 250.00 DIABETES MELLITUS 02/17/2008 DONALDSON C[employer] 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, SABINA N 250.40 NEPHROPATHY DIABETIC 02/17/2008 DONALDSON C[employer] 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, SABINA N 272.4 HYPERLIPIDEMIA UNSPECIFIED 02/17/2008 SHELBI DPM, MCKENZIE 250.00 DIABETES MELLITUS 02/17/2008 SHELBI DPM, MCKENZIE 250.40 NEPHROPATHY DIABETIC 02/17/2008 SHELBI DPM, MCKENZIE 272.4 HYPERLIPIDEMIA UNSPECIFIED 02/17/2008 DONALDSON C[employer] 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, SABINA N 250.00 DIABETES MELLITUS 02/17/2008 DONALDSON C[employer] 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, SABINA N 250.40 NEPHROPATHY DIABETIC 02/17/2008 DONALDSON C[employer] 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, SABINA N 272.4 HYPERLIPIDEMIA UNSPECIFIED 02/17/2008 DONALDSON C[employer] 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, SABINA N 250.00 DIABETES MELLITUS 02/17/2008 DONALDSON C[employer] 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, SABINA N 250.40 NEPHROPATHY DIABETIC 02/17/2008 DONALDSON CASHERO 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, SABINA N 272.4 HYPERLIPIDEMIA UNSPECIFIED 02/17/2008 DONALDSON C[employer] 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, SABINA N 250.00 DIABETES MELLITUS 02/17/2008 DONALDSON C[employer] 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, SABINA N 250.40 NEPHROPATHY DIABETIC 02/17/2008 DONALDSON C[employer] 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, SABINA N 272.4 HYPERLIPIDEMIA UNSPECIFIED 02/17/2008 DONALDSON C[employer] 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, SABINA N 250.00 DIABETES MELLITUS 02/17/2008 DONALDSON C[employer] 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, SABINA N 250.40 NEPHROPATHY DIABETIC 02/17/2008 DONAL[employer]ON C[employer] 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, SABINA N 272.4 HYPERLIPIDEMIA UNSPECIFIED 02/26/2008 BARBER [...] 465.9 UPPER RESPIRATORY INFECTION 02/26/2008 DONALDSON C[employer] 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, SABINA N 465.9 UPPER RESPIRATORY INFECTION 02/26/2008 AVILA DO, AILYN K 465.9 UPPER RESPIRATORY INFECTION 02/26/2008 DONALDSON C[employer] 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, SABINA N 465.9 UPPER RESPIRATORY INFECTION 02/26/2008 DONALDSON C[employer] 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, SABINA N 465.9 UPPER RESPIRATORY INFECTION 02/26/2008 DONALDSON C[employer] 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, SABINA N 465.9 UPPER RESPIRATORY INFECTION 02/26/2008 AVILA DO, AILYN K 465.9 UPPER RESPIRATORY INFECTION 02/26/2008 DONALDSON C[employer] 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, SABINA N 465.9 UPPER RESPIRATORY INFECTION 02/26/2008 DONALDSON C[employer] 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, SABINA N 465.9 UPPER RESPIRATORY INFECTION 02/26/2008 AVILA DO, AILYN K 465.9 UPPER RESPIRATORY INFECTION 02/26/2008 DONALDSON C[employer] 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, SABINA N 465.9 UPPER RESPIRATORY INFECTION 02/26/2008 SHELBI DPM, MCKENZIE 465.9 UPPER RESPIRATORY INFECTION 02/26/2008 DONALDSON C[employer] 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, SABINA N 465.9 UPPER RESPIRATORY INFECTION 02/26/2008 DONALDSON C[employer]ERO 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, SABINA N 465.9 UPPER RESPIRATORY INFECTION 02/26/2008 DONALDSON C[employer] 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, SABINA N 465.9 UPPER RESPIRATORY INFECTION 02/26/2008 DONALDSON C[employer] 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, SABINA N 465.9 UPPER RESPIRATORY INFECTION 04/21/2008 BARBER YO APRN 466.0 BRONCHITIS, ACUTE 04/21/2008 466.0 BRONCHITIS, ACUTE 04/21/2008 466.0 BRONCHITIS, ACUTE 04/21/2008 466.0 BRONCHITIS, ACUTE 04/21/2008 BARBER YO APRN 466.0 BRONCHITIS, ACUTE 04/21/2008 466.0 BRONCHITIS, ACUTE 04/21/2008 466.0 BRONCHITIS, ACUTE 04/21/2008 466.0 BRONCHITIS, ACUTE 04/21/2008 466.0 BRONCHITIS, ACUTE 04/21/2008 466.0 BRONCHITIS, ACUTE 04/21/2008 466.0 BRONCHITIS, ACUTE 04/21/2008 DONALDSON CASHERO 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, SABINA N 466.0 BRONCHITIS, ACUTE 04/21/2008 AVILA DO, AILYN K 466.0 BRONCHITIS, ACUTE 04/21/2008 DONALDSON C[employer] 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, SABINA N 466.0 BRONCHITIS, ACUTE 04/21/2008 DONALDSON C[employer]ERO 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, SABINA N 466.0 BRONCHITIS, ACUTE 04/21/2008 DONALDSON C[employer]ERO 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, SABINA N 466.0 BRONCHITIS, ACUTE 04/21/2008 AVILA DO, AILYN K 466.0 BRONCHITIS, ACUTE 04/21/2008 DONALDSON C[employer] 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, SABINA N 466.0 BRONCHITIS, ACUTE 04/21/2008 DONALDSON C[employer]ERO 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, SABINA N 466.0 BRONCHITIS, ACUTE 04/21/2008 AVILA DO, AILYN K 466.0 BRONCHITIS, ACUTE 04/21/2008 DONALDSON C[employer] 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, SABINA N 466.0 BRONCHITIS, ACUTE 04/21/2008 SHELBI DPM, MCKENZIE 466.0 BRONCHITIS, ACUTE 04/21/2008 DONALDSON C[employer] 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, SABINA N 466.0 BRONCHITIS, ACUTE 04/21/2008 DONALDSON C[employer]ERO 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, SABINA N 466.0 BRONCHITIS, ACUTE 04/21/2008 DONALDSON C[employer] 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, SABINA N 466.0 BRONCHITIS, ACUTE 04/21/2008 DONALDSON C[employer] 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, SABINA N 466.0 BRONCHITIS, ACUTE 05/26/2008 BARBER [...] tissue swelling (non-joint) [Sx] 05/26/2008 DONAL[employer]ON C[employer] 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, SABINA N 682.9 CELLULITIS AND ABSCESS OF UNSPECIFIED SITES 05/26/2008 DONALDSON C[employer] 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, SABINA N 782.3 soft tissue swelling (non-joint) [Sx] 05/26/2008 AVILA DO, AILYN K 682.9 CELLULITIS AND ABSCESS OF UNSPECIFIED SITES 05/26/2008 AVILA DO, AILYN K 782.3 soft tissue swelling (non-joint) [Sx] 05/26/2008 DONAL[employer]ON C[employer] 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, SABINA N 682.9 CELLULITIS AND ABSCESS OF UNSPECIFIED SITES 05/26/2008 DONALDSON C[employer] 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, SABINA N 782.3 soft tissue swelling (non-joint) [Sx] 05/26/2008 DONALDSON C[employer] 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, SABINA N 682.9 CELLULITIS AND ABSCESS OF UNSPECIFIED SITES 05/26/2008 DONALDSON C[employer] 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, SABINA N 782.3 soft tissue swelling (non-joint) [Sx] 05/26/2008 DONAL[employer]ON C[employer] 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, SABINA N 682.9 CELLULITIS AND ABSCESS OF UNSPECIFIED SITES 05/26/2008 DONAL[employer]ON C[employer] 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, SABINA N 782.3 soft tissue swelling (non-joint) [Sx] 05/26/2008 AVILA DO, AILYN K 682.9 CELLULITIS AND ABSCESS OF UNSPECIFIED SITES 05/26/2008 AVILA DO, AILYN K 782.3 soft tissue swelling (non-joint) [Sx] 05/26/2008 [employer]AL[employer]ON C[employer] 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, SABINA N 682.9 CELLULITIS AND ABSCESS OF UNSPECIFIED SITES 05/26/2008 DONAL[employer]ON C[employer] 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, SABINA N 782.3 soft tissue swelling (non-joint) [Sx] 05/26/2008 DONAL[employer]ON C[employer] 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, SABINA N 682.9 CELLULITIS AND ABSCESS OF UNSPECIFIED SITES 05/26/2008 DONALDSON C[employer] 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, SABINA N 782.3 soft tissue swelling (non-joint) [Sx] 05/26/2008 AVILA DO, AILYN K 682.9 CELLULITIS AND ABSCESS OF UNSPECIFIED SITES 05/26/2008 AVILA DO AILYN K 782.3 soft tissue swelling (non-joint) [Sx] 05/26/2008 DONAL[employer]ON C[employer] 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, SABINA N 682.9 CELLULITIS AND ABSCESS OF UNSPECIFIED SITES 05/26/2008 DONALDSON C[employer] 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, SABINA N 782.3 soft tissue swelling (non-joint) [Sx] 05/26/2008 SHELBI DPM, MCKENZIE 682.9 CELLULITIS AND ABSCESS OF UNSPECIFIED SITES 05/26/2008 SHELBI DPM, MCKENZIE 782.3 soft tissue swelling (non-joint) [Sx] 05/26/2008 DONALDSON C[employer] 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, SABINA N 682.9 CELLULITIS AND ABSCESS OF UNSPECIFIED SITES 05/26/2008 DONAL[employer]ON C[employer] 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, SABINA N 782.3 soft tissue swelling (non-joint) [Sx] 05/26/2008 DONALDSON C[employer] 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, SABINA N 682.9 CELLULITIS AND ABSCESS OF UNSPECIFIED SITES 05/26/2008 DONALDSON C[employer] 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, SABINA N 782.3 soft tissue swelling (non-joint) [Sx] 05/26/2008 DONAL[employer]ON C[employer] 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, SABINA N 682.9 CELLULITIS AND ABSCESS OF UNSPECIFIED SITES 05/26/2008 DONAL[employer]ON C[employer] 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, SABINA N 782.3 soft tissue swelling (non-joint) [Sx] 05/26/2008 DONAL[employer]ON C[employer] 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, SABINA N 682.9 CELLULITIS AND ABSCESS OF UNSPECIFIED SITES 05/26/2008 [employer]ON C[employer] 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, SABINA N 782.3 soft tissue swelling (non-joint) [...] frequent, full-bladder emptying (polyuria) 03/31/2009 [employer]AL[employer]ON C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, SABINA N 788.42 frequent, full-bladder emptying (polyuria) 03/31/2009 AILYN AVILA DO K 788.42 frequent, full-bladder emptying (polyuria) 03/31/2009 [employer]ON C[employer] 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, SABINA N 788.42 frequent, full-bladder emptying (polyuria) 03/31/2009 [employer]AL[employer]ON C[employer] 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, SABINA N 788.42 frequent, full-bladder emptying (polyuria) 03/31/2009 [employer]AL[employer]ON C[employer] 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, SABINA N 788.42 frequent, full-bladder emptying (polyuria) 03/31/2009 AVILA LA AVILAA K 788.42 frequent, full-bladder emptying (polyuria) 03/31/2009 DONAL[employer]ON C[employer] 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, SABINA N 788.42 frequent, full-bladder emptying (polyuria) 03/31/2009 DONALDSON C[employer] 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, SABINA N 788.42 frequent, full-bladder emptying (polyuria) 03/31/2009 AVILA DO, AILYN K 788.42 frequent, full-bladder emptying (polyuria) 03/31/2009 DONALDSON C[employer] 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, SABINA N 788.42 frequent, full-bladder emptying (polyuria) 03/31/2009 SHELBI DPM, MCKENZIE 788.42 frequent, full-bladder emptying (polyuria) 03/31/2009 DONALDSON C[employer] 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, SABINA N 788.42 frequent, full-bladder emptying (polyuria) 03/31/2009 DONALDSON C[employer]ERO 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, SABINA N 788.42 frequent, full-bladder emptying (polyuria) 03/31/2009 DONALDSON C[employer]ERO 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, SABINA N 788.42 frequent, full-bladder emptying (polyuria) 03/31/2009 [employer]AL[employer]ON C[employer] 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, SABINA N 788.42 frequent, full-bladder emptying (polyuria) 04/28/2009 BARBER YO APRN 486 PNEUMONIA UNSPECIFIED 04/28/2009 486 PNEUMONIA UNSPECIFIED 04/28/2009 486 PNEUMONIA UNSPECIFIED 04/28/2009 486 PNEUMONIA UNSPECIFIED 04/28/2009 BARBER YO APRN 486 PNEUMONIA UNSPECIFIED 04/28/2009 486 PNEUMONIA UNSPECIFIED 04/28/2009 486 PNEUMONIA UNSPECIFIED 04/28/2009 486 PNEUMONIA UNSPECIFIED 04/28/2009 486 PNEUMONIA UNSPECIFIED 04/28/2009 486 PNEUMONIA UNSPECIFIED 04/28/2009 486 PNEUMONIA UNSPECIFIED 04/28/2009 DONALDSON CASHERO 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, SABINA N 486 PNEUMONIA UNSPECIFIED 04/28/2009 AVILA DO, AILYN K 486 PNEUMONIA UNSPECIFIED 04/28/2009 DONALDSON C[employer]ERO 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, SABINA N 486 PNEUMONIA UNSPECIFIED 04/28/2009 DONALDSON CASHERO 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, SABINA N 486 PNEUMONIA UNSPECIFIED 04/28/2009 DONALDSON C[employer]ERO 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, SABINA N 486 PNEUMONIA UNSPECIFIED 04/28/2009 AVILA DO, AILYN K 486 PNEUMONIA UNSPECIFIED 04/28/2009 DONALDSON C[employer]ERO 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, SABINA N 486 PNEUMONIA UNSPECIFIED 04/28/2009 DONALDSON C[employer]ERO 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, SABINA N 486 PNEUMONIA UNSPECIFIED 04/28/2009 AVILA DO, AILYN K 486 PNEUMONIA UNSPECIFIED 04/28/2009 DONALDSON C[employer]ERO 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, SABINA N 486 PNEUMONIA UNSPECIFIED 04/28/2009 SHELBI DPM, MCKENZIE 486 PNEUMONIA UNSPECIFIED 04/28/2009 DONALDSON C[employer] 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, SABINA N 486 PNEUMONIA UNSPECIFIED 04/28/2009 DONALDSON C[employer]ERO 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, SABINA N 486 PNEUMONIA UNSPECIFIED 04/28/2009 DONALDSON C[employer]ERO 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, SABINA N 486 PNEUMONIA UNSPECIFIED 04/28/2009 DONALDSON CASH[employer] 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, SABINA N 486 PNEUMONIA UNSPECIFIED 02/27/2010 BARBER [...] ENTERITIS OF UNSPECIFIED SITE 02/27/2010 DONALDSON CASHERO 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, SABINA N 555.9 REGIONAL ENTERITIS OF UNSPECIFIED SITE 02/27/2010 AVILA DO, AILYN K 555.9 REGIONAL ENTERITIS OF UNSPECIFIED SITE 02/27/2010 DONALDSON CASHERO 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, SABINA N 555.9 REGIONAL ENTERITIS OF UNSPECIFIED SITE 02/27/2010 DONALDSON C[employer] 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, SABINA N 555.9 REGIONAL ENTERITIS OF UNSPECIFIED SITE 02/27/2010 DONALDSON C[employer] 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, SABINA N 555.9 REGIONAL ENTERITIS OF UNSPECIFIED SITE 02/27/2010 AVILA DO, AILYN K 555.9 REGIONAL ENTERITIS OF UNSPECIFIED SITE 02/27/2010 DONALDSON C[employer]ERO 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, SABINA N 555.9 REGIONAL ENTERITIS OF UNSPECIFIED SITE 02/27/2010 DONALDSON C[employer] 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, SABINA N 555.9 REGIONAL ENTERITIS OF UNSPECIFIED SITE 02/27/2010 AVILA DO, AILYN K 555.9 REGIONAL ENTERITIS OF UNSPECIFIED SITE 02/27/2010 DONALDSON [employer] 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, SABINA N 555.9 REGIONAL ENTERITIS OF UNSPECIFIED SITE 02/27/2010 SHELBI DPM, MCKENZIE 555.9 REGIONAL ENTERITIS OF UNSPECIFIED SITE 02/27/2010 DONALDSON [employer] 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, SABINA N 555.9 REGIONAL ENTERITIS OF UNSPECIFIED SITE 02/27/2010 DONALDSON C[employer] 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, SABINA N 555.9 REGIONAL ENTERITIS OF UNSPECIFIED SITE 02/27/2010 DONALDSON C[employer]ERO 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, SABINA N 555.9 REGIONAL ENTERITIS OF UNSPECIFIED SITE 02/27/2010 DONALDSON C[employer] 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, SABINA N 555.9 REGIONAL ENTERITIS OF UNSPECIFIED [...] 789.07 ABDOMINAL PAIN GENERALIZED 01/22/2011 DONALDSON C[employer]ERO 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, SABINA N 789.07 ABDOMINAL PAIN GENERALIZED 01/22/2011 AUSTIN DOAILYN K 789.07 ABDOMINAL PAIN GENERALIZED 01/22/2011 DONALDSON CASHERO 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KHRIS FarleyCY N 789.07 ABDOMINAL PAIN GENERALIZED 01/22/2011 DONALDSON C[employer]ERO 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, SABINA N 789.07 ABDOMINAL PAIN GENERALIZED 01/22/2011 DONALDSON C[employer] 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, SABINA N 789.07 ABDOMINAL PAIN GENERALIZED 01/22/2011 AVILA DOLAA K 789.07 ABDOMINAL PAIN GENERALIZED 01/22/2011 DONALDSON C[employer]ERO 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, SABINA N 789.07 ABDOMINAL PAIN GENERALIZED 01/22/2011 DONALDSON C[employer] 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, SABINA N 789.07 ABDOMINAL PAIN GENERALIZED 01/22/2011 AVILA DOAILYN K 789.07 ABDOMINAL PAIN GENERALIZED 01/22/2011 DONALDSON [employer] 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, SABINA N 789.07 ABDOMINAL PAIN GENERALIZED 01/22/2011 MCKENZIE PRESCOTT DPM 789.07 ABDOMINAL PAIN GENERALIZED 01/22/2011 DONALDSON [employer] 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, SABINA N 789.07 ABDOMINAL PAIN GENERALIZED 01/22/2011 DONALDSON C[employer] 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, SABINA N 789.07 ABDOMINAL PAIN GENERALIZED 01/22/2011 DONALDSON C[employer] 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, SABINA N 789.07 ABDOMINAL PAIN GENERALIZED 01/22/2011 DONALDSON [employer] 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, SABINA N 789.07 ABDOMINAL PAIN GENERALIZED 03/19/2011 [...] DX ( MEDICARE ONLY) 03/19/2011 DONALDSON [employer] 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, SABINA N V04.81 FLU DX (MEDICARE ONLY) 03/19/2011 AILYN AVILA DO V04.81 FLU DX (MEDICARE ONLY) 03/19/2011 [employer]ON [employer] 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, SABINA N V04.81 FLU DX (MEDICARE ONLY) 03/19/2011 [employer]ALDSON [employer] 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, SABINA N V04.81 FLU DX (MEDICARE ONLY) 03/19/2011 DONALDSON [employer] 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, SABINA N V04.81 FLU DX (MEDICARE ONLY) 03/19/2011 AILYN AVILA DO V04.81 FLU DX (MEDICARE ONLY) 03/19/2011 [employer]ALDSON C[employer] 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, SABINA N V04.81 FLU DX (MEDICARE ONLY) 03/19/2011 DONALDSON C[employer] 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, SABINA N V04.81 FLU DX (MEDICARE ONLY) 03/19/2011 AILYN AVILA DO V04.81 FLU DX (MEDICARE ONLY) 03/19/2011 [employer]ALDSON [employer] 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, SABINA N V04.81 FLU DX (MEDICARE ONLY) 03/19/2011 MCKENZIE PRESCOTT DPM V04.81 FLU DX (MEDICARE ONLY) 03/19/2011 [employer]ON [employer] 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, SABINA N V04.81 FLU DX (MEDICARE ONLY) 03/19/2011 [employer]ALDSON C[employer] 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, SABINA N V04.81 FLU DX (MEDICARE ONLY) 03/19/2011 [employer]ALDSON C[employer] 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, 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 N V04.81 FLU DX (MEDICARE ONLY) 03/19/2011 [employer]ALDSON C[employer] 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, SABINA N V04.81 FLU DX (MEDICARE ONLY) [...] CHRONIC CUTANEOUS ULCER DECUBITUS 12/11/2011 DONALDSON C[employer] 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, SABINA N 682.7 SKIN ABSCESS OF THE HEEL 12/11/2011 [employer]ALDSON [employer] 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, SABINA N 707.00 CHRONIC CUTANEOUS ULCER DECUBITUS 12/11/2011 AVILA DO, AILYN K 682.7 SKIN ABSCESS OF THE HEEL 12/11/2011 AVILA DO, AILYN K 707.00 CHRONIC CUTANEOUS ULCER DECUBITUS 12/11/2011 DONALDSON INESERO 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, SABINA N 682.7 SKIN ABSCESS OF THE HEEL 12/11/2011 DONALDSON CASH[employer] 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, SABINA N 707.00 CHRONIC CUTANEOUS ULCER DECUBITUS 12/11/2011 DONALDSON C[employer] 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, SABINA N 682.7 SKIN ABSCESS OF THE HEEL 12/11/2011 DONALDSON CASHERO 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, SABINA N 707.00 CHRONIC CUTANEOUS ULCER DECUBITUS 12/11/2011 DONALDSON CASHERO 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, SABINA N 682.7 SKIN ABSCESS OF THE HEEL 12/11/2011 DONALDSON VALENTIN 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, SABINA N 707.00 CHRONIC CUTANEOUS ULCER DECUBITUS 12/11/2011 AVILA DO, AILYN K 682.7 SKIN ABSCESS OF THE HEEL 12/11/2011 AVILA DO, AILYN K 707.00 CHRONIC CUTANEOUS ULCER DECUBITUS 12/11/2011 DONALDSON CASHERO 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, SABINA N 682.7 SKIN ABSCESS OF THE HEEL 12/11/2011 DONALDSON CASHERO 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, SABINA N 707.00 CHRONIC CUTANEOUS ULCER DECUBITUS 12/11/2011 DONALDSON CASHERO 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, SABINA N 682.7 SKIN ABSCESS OF THE HEEL 12/11/2011 DONALDSON CASHERO 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, SABINA N 707.00 CHRONIC CUTANEOUS ULCER DECUBITUS 12/11/2011 AVILA DO, AILYN K 682.7 SKIN ABSCESS OF THE HEEL 12/11/2011 AVILA DO, AILYN K 707.00 CHRONIC CUTANEOUS ULCER DECUBITUS 12/11/2011 DONALDSON CASHERO 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, SABINA N 682.7 SKIN ABSCESS OF THE HEEL 12/11/2011 DONALDSON CASHERO 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, SABINA N 707.00 CHRONIC CUTANEOUS ULCER DECUBITUS 12/11/2011 SHELBI DPM, MCKENZIE 682.7 SKIN ABSCESS OF THE HEEL 12/11/2011 SHELBI DPM, MCKENZIE 707.00 CHRONIC CUTANEOUS ULCER DECUBITUS 12/11/2011 DONALDSON CASHERO 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, SABINA N 682.7 SKIN ABSCESS OF THE HEEL 12/11/2011 DONALDSON CASHERO 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, SABINA N 707.00 CHRONIC CUTANEOUS ULCER DECUBITUS 12/11/2011 DONALDSON CASHERO 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, SABINA N 682.7 SKIN ABSCESS OF THE HEEL 12/11/2011 DONALDSON CASHERO 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, SABINA N 707.00 CHRONIC CUTANEOUS ULCER DECUBITUS 12/11/2011 DONALDSON CASHERO 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, SABINA N 682.7 SKIN ABSCESS OF THE HEEL 12/11/2011 DONALDSON CASHERO 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, SABINA N 707.00 CHRONIC CUTANEOUS ULCER DECUBITUS 12/11/2011 DONALDSON CASHERO 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, SABINA N 682.7 SKIN ABSCESS OF THE HEEL 12/11/2011 DONALDSON CASHERO 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, SABINA N 707.00 CHRONIC CUTANEOUS ULCER DECUBITUS [...] 12/18/2011 V58.31 WOUND DRESSING 12/18/2011 DONALDSON CASHERO 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, SABINA N 682.9 Cellulitis And Abscess Of Unspecified Sites 12/18/2011 DONALDSON CASHERO 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, SABINA N V58.31 WOUND DRESSING 12/18/2011 AVILA DO, AILYN K 682.9 Cellulitis And Abscess Of Unspecified Sites 12/18/2011 AVILA DO, AILYN K V58.31 WOUND DRESSING 12/18/2011 DONALDSON CASHERO 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, SABINA N 682.9 Cellulitis And Abscess Of Unspecified Sites 12/18/2011 DONALDSON CASHERO 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, SABINA N V58.31 WOUND DRESSING 12/18/2011 DONALDSON CASHERO 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, SABINA N 682.9 Cellulitis And Abscess Of Unspecified Sites 12/18/2011 DONALDSON CASHERO 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, SABINA N V58.31 WOUND DRESSING 12/18/2011 DONALDSON CASHERO 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, SABINA N 682.9 Cellulitis And Abscess Of Unspecified Sites 12/18/2011 DONALDSON CASHERO 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, SABINA N V58.31 WOUND DRESSING 12/18/2011 AVILA DO, AILYN K 682.9 Cellulitis And Abscess Of Unspecified Sites 12/18/2011 AVILA DO, AILYN K V58.31 WOUND DRESSING 12/18/2011 DONALDSON CASHERO 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, SABINA N 682.9 Cellulitis And Abscess Of Unspecified Sites 12/18/2011 DONALDSON CASHERO 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, SABINA N V58.31 WOUND DRESSING 12/18/2011 DONALDSON CASHERO 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, SABINA N 682.9 Cellulitis And Abscess Of Unspecified Sites 12/18/2011 DONALDSON CASHERO 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, SABINA N V58.31 WOUND DRESSING 12/18/2011 AVILA DO, AILYN K 682.9 Cellulitis And Abscess Of Unspecified Sites 12/18/2011 AVILA DO, AILYN K V58.31 WOUND DRESSING 12/18/2011 DONALDSON CASHERO 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, SABINA N 682.9 Cellulitis And Abscess Of Unspecified Sites 12/18/2011 DONALDSON CASHERO 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, SABINA N V58.31 WOUND DRESSING 12/18/2011 SHELBI DPM, MCKENZIE 682.9 Cellulitis And Abscess Of Unspecified Sites 12/18/2011 SHELBI DPM, MCKENZIE V58.31 WOUND DRESSING 12/18/2011 DONALDSON CASHERO 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, SABINA N 682.9 Cellulitis And Abscess Of Unspecified Sites 12/18/2011 DONALDSON CASHERO 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, SABINA N V58.31 WOUND DRESSING 12/18/2011 DONALDSON CASHERO 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, SABINA N 682.9 Cellulitis And Abscess Of Unspecified Sites 12/18/2011 DONALDSON CASHERO 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, SABINA N V58.31 WOUND DRESSING 12/18/2011 DONALDSON CASHERO 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, SABINA N 682.9 Cellulitis And Abscess Of Unspecified Sites 12/18/2011 DONALDSON CASHERO 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, SABINA N V58.31 WOUND DRESSING 12/18/2011 DONALDSON CASHERO 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, SABINA N 682.9 Cellulitis And Abscess Of Unspecified Sites 12/18/2011 DONALDSON CASHERO 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, SABINA N V58.31 WOUND DRESSING 01/08/2012 BARBER YO APRN 593.9 RENAL INSUFFICIENCY 01/08/2012 593.9 RENAL INSUFFICIENCY 01/08/2012 593.9 RENAL INSUFFICIENCY 01/08/2012 593.9 RENAL INSUFFICIENCY 01/08/2012 BARBER YO APRN 593.9 RENAL INSUFFICIENCY 01/08/2012 593.9 RENAL INSUFFICIENCY 01/08/2012 593.9 RENAL INSUFFICIENCY 01/08/2012 593.9 RENAL INSUFFICIENCY 01/08/2012 593.9 RENAL INSUFFICIENCY 01/08/2012 593.9 RENAL INSUFFICIENCY 01/08/2012 593.9 RENAL INSUFFICIENCY 01/08/2012 DONALDSON CASHERO 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, SABINA N 593.9 RENAL INSUFFICIENCY 01/08/2012 AVILA DO, AILYN K 593.9 RENAL INSUFFICIENCY 01/08/2012 DONALDSON CASHERO 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, SABINA N 593.9 RENAL INSUFFICIENCY 01/08/2012 DONALDSON CASHERO 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, SABINA N 593.9 RENAL INSUFFICIENCY 01/08/2012 DONALDSON CASHERO 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, SABINA N 593.9 RENAL INSUFFICIENCY 01/08/2012 AVILA DO, AILYN K 593.9 RENAL INSUFFICIENCY 01/08/2012 DONALDSON CASHERO 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, SABINA N 593.9 RENAL INSUFFICIENCY 01/08/2012 DONALDSON CASHERO 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, SABINA N 593.9 RENAL INSUFFICIENCY 01/08/2012 AILYN AVILA DO K 593.9 RENAL INSUFFICIENCY 01/08/2012 DONALDSON CASHERO 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, SABINA N 593.9 RENAL INSUFFICIENCY 01/08/2012 MCKENZIE PRESCOTT DPM 593.9 RENAL INSUFFICIENCY 01/08/2012 DONALDSON CASHERO 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, SABINA N 593.9 RENAL INSUFFICIENCY 01/08/2012 DONALDSON CASHERO 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, SABINA N 593.9 RENAL INSUFFICIENCY 01/08/2012 DONALDSON CASHERO 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, SABINA N 593.9 RENAL INSUFFICIENCY 01/08/2012 DONALDSON CASHERO 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, SABINA N 593.9 RENAL INSUFFICIENCY 02/06/2012 Ot [...] PCV-13 ( PREVNAR) DX 04/17/2012 DONALDSON CASHERO 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, SABINA N 724.2 BACK PAIN, LOWER 04/17/2012 DONALDSON CASHERO 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, SABINA N V03.82 PCV-13 (PREVNAR) DX 04/17/2012 AVILA DO, AILYN K 724.2 BACK PAIN, LOWER 04/17/2012 AVILA DO, AILYN K V03.82 PCV-13 (PREVNAR) DX 04/17/2012 DONAL[employer]ON CASHERO 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, SABINA N 724.2 BACK PAIN, LOWER 04/17/2012 DONALDSON CASHERO 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, SABINA N V03.82 PCV-13 (PREVNAR) DX 04/17/2012 DONALDSON CASHERO 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, SABINA N 724.2 BACK PAIN, LOWER 04/17/2012 DONALDSON CASHERO 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, SABINA N V03.82 PCV-13 (PREVNAR) DX 04/17/2012 DONALDSON CASHERO 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, SABINA N 724.2 BACK PAIN, LOWER 04/17/2012 DONALDSON CASHERO 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, SABINA N V03.82 PCV-13 (PREVNAR) DX 04/17/2012 AVILA DO, AILYN K 724.2 BACK PAIN, LOWER 04/17/2012 AVILA DO, AILYN K V03.82 PCV-13 (PREVNAR) DX 04/17/2012 DONALDSON CASHERO 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, SABINA N 724.2 BACK PAIN, LOWER 04/17/2012 DONAL[employer]ON CASHERO 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, SABINA N V03.82 PCV-13 (PREVNAR) DX 04/17/2012 DONALDSON CASHERO 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, SABINA N 724.2 BACK PAIN, LOWER 04/17/2012 DONALDSON CASHERO 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, SABINA N V03.82 PCV-13 (PREVNAR) DX 04/17/2012 AVILA DO, AILYN K 724.2 BACK PAIN, LOWER 04/17/2012 AVILA DO, AILYN K V03.82 PCV-13 (PREVNAR) DX 04/17/2012 [employer]AL[employer]ON CASHERO 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, SABINA N 724.2 BACK PAIN, LOWER 04/17/2012 DONALDSON CASHERO HOUSEHOLD APPLIANCE INSTALLER, SABINA N V03.82 PCV-13 (PREVNAR) DX 04/17/2012 SHELBI DPM, MCKENZIE 724.2 BACK PAIN, LOWER 04/17/2012 SHELBI DPM, MCKENZIE V03.82 PCV-13 (PREVNAR) DX 04/17/2012 DONAL[employer]ON CASHERO HOUSEHOLD APPLIANCE INSTALLER, SABINA N 724.2 BACK PAIN, LOWER 04/17/2012 DONAL[employer]ON CASHERO HOUSEHOLD APPLIANCE INSTALLER, SABINA N V03.82 PCV-13 (PREVNAR) DX 04/17/2012 DONALDSON CASHERO HOUSEHOLD APPLIANCE INSTALLER, SABINA N 724.2 BACK PAIN, LOWER 04/17/2012 DONALDSON CASHERO HOUSEHOLD APPLIANCE INSTALLER, SABINA N V03.82 PCV-13 (PREVNAR) DX 04/17/2012 DONALDSON CASHERO HOUSEHOLD APPLIANCE INSTALLER, SABINA N 724.2 BACK PAIN, LOWER 04/17/2012 DONAL[employer]ON CASHERO HOUSEHOLD APPLIANCE INSTALLER, SABINA N V03.82 PCV-13 (PREVNAR) DX 04/17/2012 DONALDSON C[employer]ERO HOUSEHOLD APPLIANCE INSTALLER, SABINA N 724.2 BACK PAIN, LOWER 04/17/2012 [employer] C[employer] HOUSEHOLD APPLIANCE INSTALLER, SABINA N V03.82 PCV-13 (PREVNAR) DX 06/06/2012 [...] AILYN K 564.00 CONSTIPATION 07/08/2012 DONALDSON CASHERO HOUSEHOLD APPLIANCE INSTALLER, SABINA N 564.00 CONSTIPATION 07/08/2012 DONALDSON CASHERO HOUSEHOLD APPLIANCE INSTALLER, SABINA N 564.00 CONSTIPATION 07/08/2012 DONALDSON CASHERO HOUSEHOLD APPLIANCE INSTALLER, SABINA N 564.00 CONSTIPATION 07/08/2012 AVILA DO, AILYN K 564.00 CONSTIPATION 07/08/2012 DONAL[employer]ON C[employer]ERO HOUSEHOLD APPLIANCE INSTALLER, SABINA N 564.00 CONSTIPATION 07/08/2012 DONALDSON CASHERO HOUSEHOLD APPLIANCE INSTALLER, SABINA N 564.00 CONSTIPATION 07/08/2012 AVILA DO, AILYN K 564.00 CONSTIPATION 07/08/2012 DONALDSON CASHERO HOUSEHOLD APPLIANCE INSTALLER, SABINA N 564.00 CONSTIPATION 07/08/2012 SHELBI DPM, MCKENZIE 564.00 CONSTIPATION 07/08/2012 DONALDSON CASHERO HOUSEHOLD APPLIANCE INSTALLER, SABINA N 564.00 CONSTIPATION 07/08/2012 DONALDSON CASHERO HOUSEHOLD APPLIANCE INSTALLER, SABINA N 564.00 CONSTIPATION 07/08/2012 DONALDSON CASHERO HOUSEHOLD APPLIANCE INSTALLER, SABINA N 564.00 CONSTIPATION 07/08/2012 DONALDSON CASHERO HOUSEHOLD APPLIANCE INSTALLER, SABINA N 564.00 CONSTIPATION 07/23/2012 356.9 UNSPECIFIED [...] VENOUS (PERIPHERAL) INSUFFICIENCY UNSPECIFIED 07/23/2012 DONAL[employer]ON CASHERO HOUSEHOLD APPLIANCE INSTALLER, SABINA N 600.00 HYPERTROPHY (BENIGN) OF PROSTATE [...] K 788.41 URINARY FREQUENCY 07/23/2012 DONALDSON CASHERO HOUSEHOLD APPLIANCE INSTALLER, SABINA N 356.9 UNSPECIFIED IDIOPATHIC PERIPHERAL NEUROPATHY 07/23/2012 DON[employer]ON CASHERO HOUSEHOLD APPLIANCE INSTALLER, SAIBNA N 459.81 VENOUS (PERIPHERAL) INSUFFICIENCY UNSPECIFIED 07/23/2012 DONAL[employer]ON CASHERO HOUSEHOLD APPLIANCE INSTALLER, SABINA N 600.00 HYPERTROPHY (BENIGN) OF PROSTATE WITHOUT URINARY OBSTRUCTION AND OTHER LOWER URINARY TRACT SYMPTOMS (LUTS) 07/23/2012 DONALDSON CASHERO HOUSEHOLD APPLIANCE INSTALLER, SABINA N 788.41 URINARY FREQUENCY 07/23/2012 DONALDSON CASHERO HOUSEHOLD APPLIANCE INSTALLER, SABINA N 356.9 UNSPECIFIED IDIOPATHIC PERIPHERAL NEUROPATHY 07/23/2012 DONALDSON CASHERO HOUSEHOLD APPLIANCE INSTALLER, SABINA N 459.81 VENOUS (PERIPHERAL) INSUFFICIENCY UNSPECIFIED 07/23/2012 DONALDSON CASHERO HOUSEHOLD APPLIANCE INSTALLER, SABINA N 600.00 HYPERTROPHY (BENIGN) OF PROSTATE WITHOUT URINARY OBSTRUCTION AND OTHER LOWER URINARY TRACT SYMPTOMS (LUTS) 07/23/2012 DONALDSON CASHERO HOUSEHOLD APPLIANCE INSTALLER, SABINA N 788.41 URINARY FREQUENCY 07/23/2012 DONALDSON CASHERO HOUSEHOLD APPLIANCE INSTALLER, SABINA N 356.9 UNSPECIFIED IDIOPATHIC PERIPHERAL NEUROPATHY 07/23/2012 DONALDSON CASHERO HOUSEHOLD APPLIANCE INSTALLER, SABINA N 459.81 VENOUS (PERIPHERAL) INSUFFICIENCY UNSPECIFIED 07/23/2012 [employer] CASHERO HOUSEHOLD APPLIANCE INSTALLER, ASBINA N 600.00 HYPERTROPHY (BENIGN) OF PROSTATE WITHOUT URINARY OBSTRUCTION AND OTHER LOWER URINARY TRACT SYMPTOMS (LUTS) 07/23/2012 DONALDSON CASHERO HOUSEHOLD APPLIANCE INSTALLER, SABINA N 788.41 URINARY FREQUENCY 07/23/2012 AVILA DO, AILYN K 356.9 UNSPECIFIED IDIOPATHIC PERIPHERAL NEUROPATHY 07/23/2012 AVILA DO, AILYN K 459.81 VENOUS (PERIPHERAL) INSUFFICIENCY UNSPECIFIED 07/23/2012 AVILA DO, AILYN K 600.00 HYPERTROPHY (BENIGN) OF PROSTATE WITHOUT URINARY OBSTRUCTION AND OTHER LOWER URINARY TRACT SYMPTOMS (LUTS) 07/23/2012 AVILA DO, AILYN K 788.41 URINARY FREQUENCY 07/23/2012 DONAL[employer]ON CASHERO HOUSEHOLD APPLIANCE INSTALLER, SABINA N 356.9 UNSPECIFIED IDIOPATHIC PERIPHERAL NEUROPATHY 07/23/2012 DONALDSON CASHERO HOUSEHOLD APPLIANCE INSTALLER, SABINA N 459.81 VENOUS (PERIPHERAL) INSUFFICIENCY UNSPECIFIED 07/23/2012 DONAL[employer]ON CASHERO HOUSEHOLD APPLIANCE INSTALLER, SABINA N 600.00 HYPERTROPHY (BENIGN) OF PROSTATE WITHOUT URINARY OBSTRUCTION AND OTHER LOWER URINARY TRACT SYMPTOMS (LUTS) 07/23/2012 DONAL[employer]ON CASHERO HOUSEHOLD APPLIANCE INSTALLER, SABINA N 788.41 URINARY FREQUENCY 07/23/2012 DONALDSON CASHERO HOUSEHOLD APPLIANCE INSTALLER, SABINA N 356.9 UNSPECIFIED IDIOPATHIC PERIPHERAL NEUROPATHY 07/23/2012 DONAL[employer]ON CASHERO HOUSEHOLD APPLIANCE INSTALLER, SABINA N 459.81 VENOUS (PERIPHERAL) INSUFFICIENCY UNSPECIFIED 07/23/2012 [employer]AL[employer]ON CASHERO HOUSEHOLD APPLIANCE INSTALLER, SABINA N 600.00 HYPERTROPHY (BENIGN) OF PROSTATE WITHOUT URINARY OBSTRUCTION AND OTHER LOWER URINARY TRACT SYMPTOMS (LUTS) 07/23/2012 [employer]ON CASHERO HOUSEHOLD APPLIANCE INSTALLER, SABINA N 788.41 URINARY FREQUENCY 07/23/2012 AVILA DO, AILYN K 356.9 UNSPECIFIED IDIOPATHIC PERIPHERAL NEUROPATHY 07/23/2012 AVILA DO, AILYN K 459.81 VENOUS (PERIPHERAL) INSUFFICIENCY UNSPECIFIED 07/23/2012 AVILA DO, AILYN K 600.00 HYPERTROPHY (BENIGN) OF PROSTATE WITHOUT URINARY OBSTRUCTION AND OTHER LOWER URINARY TRACT SYMPTOMS (LUTS) 07/23/2012 AVILA DO, AILYN K 788.41 URINARY FREQUENCY 07/23/2012 DONALDSON CASHERO HOUSEHOLD APPLIANCE INSTALLER, SABINA N 356.9 UNSPECIFIED IDIOPATHIC PERIPHERAL NEUROPATHY 07/23/2012 DONALDSON CASHERO HOUSEHOLD APPLIANCE INSTALLER, SABINA N 459.81 VENOUS (PERIPHERAL) INSUFFICIENCY UNSPECIFIED 07/23/2012 [employer]ON CASHERO HOUSEHOLD APPLIANCE INSTALLER, SABINA N 600.00 HYPERTROPHY (BENIGN) OF PROSTATE WITHOUT URINARY OBSTRUCTION AND OTHER LOWER URINARY TRACT SYMPTOMS (LUTS) 07/23/2012 [employer]ON CASHERO HOUSEHOLD APPLIANCE INSTALLER, SABINA N 788.41 URINARY FREQUENCY 07/23/2012 SHELBI DPM, MCKENZIE 356.9 UNSPECIFIED IDIOPATHIC PERIPHERAL NEUROPATHY 07/23/2012 SHELBI DPM, MCKENZIE 459.81 VENOUS (PERIPHERAL) INSUFFICIENCY UNSPECIFIED 07/23/2012 SHELBI DPM, MCKENZIE 600.00 HYPERTROPHY (BENIGN) OF PROSTATE WITHOUT URINARY OBSTRUCTION AND OTHER LOWER URINARY TRACT SYMPTOMS (LUTS) 07/23/2012 SHELBI DPM, MCKENZIE 788.41 URINARY FREQUENCY 07/23/2012 DON[employer]ON CASHERO HOUSEHOLD APPLIANCE INSTALLER, SABINA N 356.9 UNSPECIFIED IDIOPATHIC PERIPHERAL NEUROPATHY 07/23/2012 DONAL[employer]ON CASHERO HOUSEHOLD APPLIANCE INSTALLER, SABINA N 459.81 VENOUS (PERIPHERAL) INSUFFICIENCY UNSPECIFIED 07/23/2012 [employer]ON CASHERO HOUSEHOLD APPLIANCE INSTALLER, SABINA N 600.00 HYPERTROPHY (BENIGN) OF PROSTATE WITHOUT URINARY OBSTRUCTION AND OTHER LOWER URINARY TRACT SYMPTOMS (LUTS) 07/23/2012 DONAL[employer]ON CASHERO HOUSEHOLD APPLIANCE INSTALLER, SABINA N 788.41 URINARY FREQUENCY 07/23/2012 DONALDSON CASHERO HOUSEHOLD APPLIANCE INSTALLER, SABINA N 356.9 UNSPECIFIED IDIOPATHIC PERIPHERAL NEUROPATHY 07/23/2012 DONALDSON CASHERO HOUSEHOLD APPLIANCE INSTALLER, SABINA N 459.81 VENOUS (PERIPHERAL) INSUFFICIENCY UNSPECIFIED 07/23/2012 DON[employer]ON CASHERO HOUSEHOLD APPLIANCE INSTALLER, SABINA N 600.00 HYPERTROPHY (BENIGN) OF PROSTATE WITHOUT URINARY OBSTRUCTION AND OTHER LOWER URINARY TRACT SYMPTOMS (LUTS) 07/23/2012 DONALDSON CASHERO HOUSEHOLD APPLIANCE INSTALLER, SABINA N 788.41 URINARY FREQUENCY 07/23/2012 DONALDSON CASHERO HOUSEHOLD APPLIANCE INSTALLER, SABINA N 356.9 UNSPECIFIED IDIOPATHIC PERIPHERAL NEUROPATHY 07/23/2012 DONALDSON CASHERO HOUSEHOLD APPLIANCE INSTALLER, SABINA N 459.81 VENOUS (PERIPHERAL) INSUFFICIENCY UNSPECIFIED 07/23/2012 [employer]ON CASHERO HOUSEHOLD APPLIANCE INSTALLER, SABINA N 600.00 HYPERTROPHY (BENIGN) OF PROSTATE WITHOUT URINARY OBSTRUCTION AND OTHER LOWER URINARY TRACT SYMPTOMS (LUTS) 07/23/2012 DONAL[employer]ON CASHERO HOUSEHOLD APPLIANCE INSTALLER, SABINA N 788.41 URINARY FREQUENCY 07/23/2012 DONALDSON CASHERO HOUSEHOLD APPLIANCE INSTALLER, SABINA N 356.9 UNSPECIFIED IDIOPATHIC PERIPHERAL NEUROPATHY 07/23/2012 DONALDSON CASHERO HOUSEHOLD APPLIANCE INSTALLER, SABINA N 459.81 VENOUS (PERIPHERAL) INSUFFICIENCY UNSPECIFIED 07/23/2012 DONALDSON CASHERO HOUSEHOLD APPLIANCE INSTALLER, SABINA N 600.00 HYPERTROPHY (BENIGN) OF PROSTATE WITHOUT URINARY OBSTRUCTION AND OTHER LOWER URINARY TRACT SYMPTOMS (LUTS) 07/23/2012 [employer]DSON CASHERO HOUSEHOLD APPLIANCE INSTALLER, SABIAN N 788.41 URINARY FREQUENCY 11/12/2012 311 DEPRESSIVE DISORDER NOT ELSEWHERE CLASSIFIED 11/12/2012 530.11 REFLUX ESOPHAGITIS 11/12/2012 311 DEPRESSIVE DISORDER NOT ELSEWHERE CLASSIFIED 11/12/2012 530.11 REFLUX ESOPHAGITIS 11/12/2012 311 DEPRESSIVE DISORDER NOT ELSEWHERE CLASSIFIED 11/12/2012 530.11 REFLUX ESOPHAGITIS 11/12/2012 DONALDSON CASHERO HOUSEHOLD APPLIANCE INSTALLER, SABINA N 311 DEPRESSIVE DISORDER NOT ELSEWHERE CLASSIFIED 11/12/2012 DONALDSON CASHERO HOUSEHOLD APPLIANCE INSTALLER, SABINA N 530.11 REFLUX ESOPHAGITIS 11/12/2012 AILYN AVILA DO 311 DEPRESSIVE DISORDER NOT ELSEWHERE CLASSIFIED 11/12/2012 AVILA DO, AILYN K 530.11 REFLUX ESOPHAGITIS 11/12/2012 [employer]ON C[employer]ERO HOUSEHOLD APPLIANCE INSTALLER, SABINA N 311 DEPRESSIVE DISORDER NOT ELSEWHERE CLASSIFIED 11/12/2012 DONALDSON CASHERO HOUSEHOLD APPLIANCE INSTALLER, SABINA N 530.11 REFLUX ESOPHAGITIS 11/12/2012 DONALDSON CASHERO HOUSEHOLD APPLIANCE INSTALLER, SABINA N 311 DEPRESSIVE DISORDER NOT ELSEWHERE CLASSIFIED 11/12/2012 DONALDSON CASHERO HOUSEHOLD APPLIANCE INSTALLER, SABINA N 530.11 REFLUX ESOPHAGITIS 11/12/2012 DONALDSON CASHERO HOUSEHOLD APPLIANCE INSTALLER, SABINA N 311 DEPRESSIVE DISORDER NOT ELSEWHERE CLASSIFIED 11/12/2012 DONALDSON CASHERO HOUSEHOLD APPLIANCE INSTALLER, SABINA N 530.11 REFLUX ESOPHAGITIS 11/12/2012 AVILA DO, AILYN K 311 DEPRESSIVE DISORDER NOT ELSEWHERE CLASSIFIED 11/12/2012 AVILA DO, AILYN K 530.11 REFLUX ESOPHAGITIS 11/12/2012 DONALDSON CASHERO HOUSEHOLD APPLIANCE INSTALLER, SABINA N 311 DEPRESSIVE DISORDER NOT ELSEWHERE CLASSIFIED 11/12/2012 DONALDSON CASHERO HOUSEHOLD APPLIANCE INSTALLER, SABINA N 530.11 REFLUX ESOPHAGITIS 11/12/2012 DONALDSON CASHERO HOUSEHOLD APPLIANCE INSTALLER, SABINA N 311 DEPRESSIVE DISORDER NOT ELSEWHERE CLASSIFIED 11/12/2012 DONALDSON CASHERO HOUSEHOLD APPLIANCE INSTALLER, SABINA N 530.11 REFLUX ESOPHAGITIS 11/12/2012 AVILA DO, AILYN K 311 DEPRESSIVE DISORDER NOT ELSEWHERE CLASSIFIED 11/12/2012 AVILA DO, AILYN K 530.11 REFLUX ESOPHAGITIS 11/12/2012 DONALDSON CASHERO HOUSEHOLD APPLIANCE INSTALLER, SABINA N 311 DEPRESSIVE DISORDER NOT ELSEWHERE CLASSIFIED 11/12/2012 [employer]ALDSON C[employer]ERO HOUSEHOLD APPLIANCE INSTALLER, SABINA N 530.11 REFLUX ESOPHAGITIS 11/12/2012 SHELBI DPM, MCKENZIE 311 DEPRESSIVE DISORDER NOT ELSEWHERE CLASSIFIED 11/12/2012 SHELBI DPM, MCKENZIE 530.11 REFLUX ESOPHAGITIS 11/12/2012 [employer]ON CASHERO HOUSEHOLD APPLIANCE INSTALLER, SABINA N 311 DEPRESSIVE DISORDER NOT ELSEWHERE CLASSIFIED 11/12/2012 DONALDSON CASHERO HOUSEHOLD APPLIANCE INSTALLER, SABINA N 530.11 REFLUX ESOPHAGITIS 11/12/2012 DONALDSON CASHERO HOUSEHOLD APPLIANCE INSTALLER, SABINA N 311 DEPRESSIVE DISORDER NOT ELSEWHERE CLASSIFIED 11/12/2012 DONALDSON CASHERO HOUSEHOLD APPLIANCE INSTALLER, SABINA N 530.11 REFLUX ESOPHAGITIS 11/12/2012 DONALDSON CASHERO HOUSEHOLD APPLIANCE INSTALLER, SABINA N 311 DEPRESSIVE DISORDER NOT ELSEWHERE CLASSIFIED 11/12/2012 [employer]ALDSON C[employer]ERO HOUSEHOLD APPLIANCE INSTALLER, SABINA N 530.11 REFLUX ESOPHAGITIS 11/12/2012 DONALDSON CASHMANJINDER SCOTT, SABINA N 311 DEPRESSIVE DISORDER NOT ELSEWHERE CLASSIFIED 11/12/2012 DONALDSONSHEREE CHACONMANJINDER HOUSEHOLD APPLIANCE INSTALLER, SABINA N 530.11 REFLUX ESOPHAGITIS 02/12/2013 110.1 ONYCHOMYCOSIS 02/12/2013 735.4 HAMMER TOE ( ACQUIRED) 02/12/2013 110.1 ONYCHOMYCOSIS 02/12/2013 735.4 HAMMER TOE ( ACQUIRED) 02/12/2013 DONALDSON INESMANJINDER HOUSEHOLD APPLIANCE INSTALLER, SABINA N 110.1 ONYCHOMYCOSIS 02/12/2013 DONALDSON INESERO HOUSEHOLD APPLIANCE INSTALLER, SABINA N 735.4 HAMMER TOE (ACQUIRED) 02/12/2013 AVILA DO, AILYN K 110.1 ONYCHOMYCOSIS 02/12/2013 AVILA DO, AILYN K 735.4 HAMMER TOE (ACQUIRED) 02/12/2013 DONALDSON INESMANJINDER HOUSEHOLD APPLIANCE INSTALLER, SABINA N 110.1 ONYCHOMYCOSIS 02/12/2013 DONALDSON INESMANJINDER HOUSEHOLD APPLIANCE INSTALLER, SABINA N 735.4 HAMMER TOE (ACQUIRED) 02/12/2013 DONALDSON INESMANJINDER HOUSEHOLD APPLIANCE INSTALLER, SABINA N 110.1 ONYCHOMYCOSIS 02/12/2013 DONALDSON INESERO HOUSEHOLD APPLIANCE INSTALLER, SABINA N 735.4 HAMMER TOE (ACQUIRED) 02/12/2013 DONALDSON INESERO HOUSEHOLD APPLIANCE INSTALLER, SABINA N 110.1 ONYCHOMYCOSIS 02/12/2013 DONALDSON INESERO HOUSEHOLD APPLIANCE INSTALLER, SABINA N 735.4 HAMMER TOE (ACQUIRED) 02/12/2013 AVILA DO, AILYN K 110.1 ONYCHOMYCOSIS 02/12/2013 AVILA DO, AILYN K 735.4 HAMMER TOE (ACQUIRED) 02/12/2013 DONALDSON CASHERO HOUSEHOLD APPLIANCE INSTALLER, SABINA N 110.1 ONYCHOMYCOSIS 02/12/2013 DONALDSON CASHERO HOUSEHOLD APPLIANCE INSTALLER, SABINA N 735.4 HAMMER TOE (ACQUIRED) 02/12/2013 DONALDSON CASHERO HOUSEHOLD APPLIANCE INSTALLER, SABINA N 110.1 ONYCHOMYCOSIS 02/12/2013 DONALDSON CASHERO HOUSEHOLD APPLIANCE INSTALLER, SABINA N 735.4 HAMMER TOE (ACQUIRED) 02/12/2013 AVILA DO, AILYN K 110.1 ONYCHOMYCOSIS 02/12/2013 AVILA DO, AILYN K 735.4 HAMMER TOE (ACQUIRED) 02/12/2013 DONALDSON CASHERO HOUSEHOLD APPLIANCE INSTALLER, SABINA N 110.1 ONYCHOMYCOSIS 02/12/2013 DONALDSON CASHERO HOUSEHOLD APPLIANCE INSTALLER, SABINA N 735.4 HAMMER TOE (ACQUIRED) 02/12/2013 SHELBI DPM, MCKENZIE 110.1 ONYCHOMYCOSIS 02/12/2013 SHELBI DPM, MCKENZIE 735.4 HAMMER TOE (ACQUIRED) 02/12/2013 DONALDSON CASHERO HOUSEHOLD APPLIANCE INSTALLER, SABINA N 110.1 ONYCHOMYCOSIS 02/12/2013 DONALDSON CASHERO HOUSEHOLD APPLIANCE INSTALLER, SABINA N 735.4 HAMMER TOE (ACQUIRED) 02/12/2013 DONALDSON CASHERO HOUSEHOLD APPLIANCE INSTALLER, SABINA N 110.1 ONYCHOMYCOSIS 02/12/2013 DONALDSON CASHERO HOUSEHOLD APPLIANCE INSTALLER, SABINA N 735.4 HAMMER TOE (ACQUIRED) 02/12/2013 DONALDSON CASHERO HOUSEHOLD APPLIANCE INSTALLER, SABINA N 110.1 ONYCHOMYCOSIS 02/12/2013 DONALDSON CASHERO HOUSEHOLD APPLIANCE INSTALLER, SABINA N 735.4 HAMMER TOE (ACQUIRED) 02/12/2013 DONALDSON CASHERO HOUSEHOLD APPLIANCE INSTALLER, SABINA N 110.1 ONYCHOMYCOSIS 02/12/2013 DONALDSON CASHERO HOUSEHOLD APPLIANCE INSTALLER, SABINA N 735.4 HAMMER TOE (ACQUIRED) 02/16/2013 607.84 IMPOTENCE OF ORGANIC ORIGIN 02/16/2013 V58.69 LONG-TERM ( CURRENT) USE OF OTHER MEDICATIONS 02/16/2013 DONALDSON CASHERO HOUSEHOLD APPLIANCE INSTALLER, SABINA N 607.84 IMPOTENCE OF ORGANIC ORIGIN 02/16/2013 DONALDSON CASHERO HOUSEHOLD APPLIANCE INSTALLER, SABINA N V58.69 LONG-TERM (CURRENT) USE OF OTHER MEDICATIONS 02/16/2013 AVILA DO, AILYN K 607.84 IMPOTENCE OF ORGANIC ORIGIN 02/16/2013 AVILA DO, AILYN K V58.69 LONG-TERM (CURRENT) USE OF OTHER MEDICATIONS 02/16/2013 DONALDSON CASHERO HOUSEHOLD APPLIANCE INSTALLER, SABINA N 607.84 IMPOTENCE OF ORGANIC ORIGIN 02/16/2013 DONALDSON CASHERO HOUSEHOLD APPLIANCE INSTALLER, SABINA N V58.69 LONG-TERM (CURRENT) USE OF OTHER MEDICATIONS 02/16/2013 DONALDSON CASHERO HOUSEHOLD APPLIANCE INSTALLER, SABINA N 607.84 IMPOTENCE OF ORGANIC ORIGIN 02/16/2013 DONALDSON C[employer]ERO HOUSEHOLD APPLIANCE INSTALLER, SABINA N V58.69 LONG-TERM (CURRENT) USE OF OTHER MEDICATIONS 02/16/2013 DONALDSON CASHERO HOUSEHOLD APPLIANCE INSTALLER, SABINA N 607.84 IMPOTENCE OF ORGANIC ORIGIN 02/16/2013 DONALDSON C[employer] APPLIANCE INSTALLER, SABINA N V58.69 LONG-TERM (CURRENT) USE OF OTHER MEDICATIONS 02/16/2013 AVILA DO, AILYN K 607.84 IMPOTENCE OF ORGANIC ORIGIN 02/16/2013 AVILA DO, AILYN K V58.69 LONG-TERM (CURRENT) USE OF OTHER MEDICATIONS 02/16/2013 DONALDSON C[employer]ERO [employer] APPLIANCE INSTALLER, SABINA N 607.84 IMPOTENCE OF ORGANIC ORIGIN 02/16/2013 DONALDSON C[employer]SEH[employer] APPLIANCE INSTALLER, SABINA N V58.69 LONG-TERM (CURRENT) USE OF OTHER MEDICATIONS 02/16/2013 DONALDSON C[employer]SEH[employer] APPLIANCE INSTALLER, SABINA N 607.84 IMPOTENCE OF ORGANIC ORIGIN 02/16/2013 DONALDSON C[employer] APPLIANCE INSTALLER, SABINA N V58.69 LONG-TERM (CURRENT) USE OF OTHER MEDICATIONS 02/16/2013 AVILA DO, AILYN K 607.84 IMPOTENCE OF ORGANIC ORIGIN 02/16/2013 AVILA DO, AILYN K V58.69 LONG-TERM (CURRENT) USE OF OTHER MEDICATIONS 02/16/2013 DONALDSON C[employer]ERO [employer] APPLIANCE INSTALLER, SABINA N 607.84 IMPOTENCE OF ORGANIC ORIGIN 02/16/2013 DONALDSON C[employer] APPLIANCE INSTALLER, SABINA N V58.69 LONG-TERM (CURRENT) USE OF OTHER MEDICATIONS 02/16/2013 SHELBI DPM, MCKENZIE 607.84 IMPOTENCE OF ORGANIC ORIGIN 02/16/2013 SHELBI DPM, MCKENZIE V58.69 LONG-TERM (CURRENT) USE OF OTHER MEDICATIONS 02/16/2013 DONALDSON C[employer]ERO [employer] APPLIANCE INSTALLER, SABINA N 607.84 IMPOTENCE OF ORGANIC ORIGIN 02/16/2013 DONALDSON C[employer]ERO HOUSEH[employer] APPLIANCE INSTALLER, SABINA N V58.69 LONG-TERM (CURRENT) USE OF OTHER MEDICATIONS 02/16/2013 DONALDSON C[employer]ERO HOUSEH[employer] APPLIANCE INSTALLER, SABINA N 607.84 IMPOTENCE OF ORGANIC ORIGIN 02/16/2013 DONALDSON C[employer]ERO HOUSEH[employer] APPLIANCE INSTALLER, SABINA N V58.69 LONG-TERM (CURRENT) USE OF OTHER MEDICATIONS 02/16/2013 DONALDSON C[employer]ERO [employer]SEH[employer] APPLIANCE INSTALLER, SABINA N 607.84 IMPOTENCE OF ORGANIC ORIGIN [...] V67.9 UNSPECIFIED FOLLOW-UP EXAMINATION 02/22/2014 DONALDSON C[employer] APPLIANCE INSTALLER, SABINA N 780.4 DIZZINESS AND GIDDINESS 02/22/2014 DONALDSON C[employer] APPLIANCE INSTALLER, SABINA N 782.0 DISTURBANCE OF SKIN SENSATION 02/22/2014 DONALDSON C[employer] APPLIANCE INSTALLER, SABINA N V67.9 UNSPECIFIED FOLLOW-UP EXAMINATION 02/22/2014 DONALDSON C[employer] APPLIANCE INSTALLER, SABINA N 780.4 DIZZINESS AND GIDDINESS 02/22/2014 DONALDSON C[employer] APPLIANCE INSTALLER, SABINA N 782.0 DISTURBANCE OF SKIN SENSATION 02/22/2014 DONALDSON C[employer]SEH[employer] APPLIANCE INSTALLER, SABINA N V67.9 UNSPECIFIED FOLLOW-UP EXAMINATION 02/22/2014 DONALDSON C[employer]ERO [employer]SEH[employer] APPLIANCE INSTALLER, SABINA N 780.4 DIZZINESS AND GIDDINESS 02/22/2014 DONALDSON C[employer]ERO HOUSEH[employer] APPLIANCE INSTALLER, SABINA N 782.0 DISTURBANCE OF SKIN SENSATION 02/22/2014 DONALDSON C[employer]SEH[employer] APPLIANCE INSTALLER, SABINA N V67.9 UNSPECIFIED FOLLOW-UP EXAMINATION 02/22/2014 DONALDSON C[employer]ERO HOUSEH[employer] APPLIANCE INSTALLER, SABINA N 780.4 DIZZINESS AND GIDDINESS 02/22/2014 DONALDSON C[employer]ERO HOUSEH[employer] APPLIANCE INSTALLER, SABINA N 782.0 DISTURBANCE OF SKIN SENSATION 02/22/2014 DONALDSON C[employer]SEH[employer] APPLIANCE INSTALLER, SABINA N V67.9 UNSPECIFIED FOLLOW-UP EXAMINATION 01/10/2015 [...] 04/04/2015 RIK MELCHOR MD Ot I70.25 ATHSCL [place] ARTERIES OF EXTREMITIES W 04/04/2015 RIK MELCHOR [...] MD Ot I25.10 ATHSCL HEART DISEASE OF [place] CORONARY 04/13/2015 CORNELIUS URENA MD Ot I47.1 SUPRAVENTRICULAR TACHYCARDIA 04/13/2015 CORNELIUS URENA MD Ot I70.212 ATHSCL [place] ARTERIES OF EXTRM W INTRMT 04/13/2015 CORNELIUS URENA MD Ot 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 04/13/2015 CORNELIUS URENA MD Ot I70.293 OTH ATHSCL [place] ARTERIES OF EXTREMITIE 04/13/2015 CORNELIUS URENA MD Ot 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 04/13/2015 CORNELIUS URENA MD Ot R94.39 ABNORMAL RESULT OF OTHER CARDIOVASCULAR 04/13/2015 CORNELIUS URENA MD Ot Z79.899 OTHER [place]ISON (CURRENT) DRUG THERAPY 04/27/2015 SHELBI DPM, MCKENZIE [...] MD Ot I25.10 ATHSCL HEART DISEASE OF [place] CORONARY 05/11/2015 CORNELIUS URENA MD Ot 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 05/11/2015 CORNELIUS URENA MD Ot 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 05/11/2015 CORNELIUS URENA MD Ot Z79.4 PRISON (CURRENT) USE OF INSULIN 05/11/2015 CORNELIUS URENA MD Ot Z79.899 OTHER BODY AND FRAME MAN (CURRENT) DRUG THERAPY 05/11/2015 CORNELIUS URENA MD [...] CRISTO VILLAVICENCIO MD, Ot Y92.121 BATHROOM IN SENIOR CARE PLACE 11/21/2015 CRISTO VILLAVICENCIO MD, Ot Y93.E1 [...] GASTRO-ESOPHAGEAL REFLUX DISEASE WITHOUT 07/07/2017 CARLA PLATT MD Ot M19.91 PRIMARY OSTEOARTHRITIS, UNSPECIFIED SITE 07/07/2017 CARLA PLATT MD, Ot N31.9 NEUROMUSCULAR DYSFUNCTION OF BLADDER, UN 07/07/2017 CARLA PLATT MD, Ot Z79.4 BODY AND FRAME MAN (CURRENT) USE OF INSULIN 07/07/2017 CARLA PLATT MD, Ot Z87.81 PERSONAL HISTORY OF (HEALED) TRAUMATIC F 07/07/2017 CARLA PLATT MD, Ot Z99.3 DEPENDENCE ON WHEELCHAIR 07/12/2017 CORNELIUS URENA MD Ot E11.9 TYPE 2 DIABETES MELLITUS WITHOUT COMPLIC 07/12/2017 CORNELIUS URENA MD Ot I47.1 SUPRAVENTRICULAR TACHYCARDIA 07/12/2017 CORNELIUS URENA MD Ot I70.211 ATHSCL [place] ART[facility] OF EXTRM W INTRMT 07/12/2017 CORNELIUS URENA MD Ot I70.299 OTH [facility]SCL [place] ARTERIES OF EXTREMITIE 07/12/2017 CORNELIUS URENA MD Ot Z72.0 TOBACCO USE 07/12/2017 SHELBI DPM, MCKENZIE Q Ot M86.9 OSTEOMYELITIS, UNSPECIFIED 07/12/2017 SHELBI DPM, MCKENZIE Q Ot Z01.818 ENCOUNTER FOR OTHER PREPROCEDURAL EXAMIN 07/12/2017 SHELBI DPM, MCKENZIE Q Ot Z11.2 ENCOUNTER FOR SCREENING FOR OTHER BACTER 07/12/2017 CARLOS OSHEA MD Ot N39.0 URINARY TRACT INFECTION, SITE NOT SPECIF 09/30/2017 CARLOS OSHEA MD Ot N40.0 BENIGN PROSTATIC HYPERPLASIA WITHOUT LOW 10/02/2017 CARLOS OSHEA MD Ot N40.0 BENIGN PROSTATIC HYPERPLASIA WITHOUT LOW 10/17/2017 CARLOS OSHEA MD, Ot N40.0 BENIGN PROSTATIC HYPERPLASIA WITHOUT LOW 10/21/2017 CARLOS OSHEA MD Ot N40.0 BENIGN PROSTATIC HYPERPLASIA WITHOUT LOW 05/13/2018 CORNELIUS URENA MD Ot E11.9 TYPE 2 DIABETES MELLITUS WITHOUT COMPLIC 05/13/2018 CORNELIUS URENA MD Ot I47.1 SUPRAVENTRICULAR TACHYCARDIA 05/13/2018 CORNELIUS URENA MD Ot I70.211 A[facility]SCL [place] [facility] OF EXTRM W INTRMT 05/13/2018 CORNELIUS URENA MD Ot I70.299 OTH ATHSCL [place] ART[facility] OF EXTREMITIE 05/13/2018 CORNELIUS URENA MD Ot Z72.0 TOBACCO USE 05/13/2018 SHELBI DPM, MCKENZIE Q Ot M86.9 OSTEOMYELITIS, UNSPECIFIED 05/13/2018 SHELBI DPM, MCKENZIE Q Ot Z01.818 ENCOUNTER FOR OTHER PREPROCEDURAL EXAMIN 05/13/2018 SHELBI DPM, MCKENZIE Q Ot Z11.2 ENCOUNTER FOR SCREENING FOR OTHER BACTER 05/13/2018 DORIE OWUSU, CARLSO Jackson Ot N39.0 URINARY TRACT INFECTION, SITE NOT SPECIF 05/13/2018 ACRLOS OSHEA MD Ot N40.0 BENIGN PROSTATIC HYPERPLASIA WITHOUT LOW Procedures Code Description Performed By Performed On 51.23 LAPAROSCOPIC CHOLECYSTECTOMY 02/03/2012 51.85 ENDOSCOPIC SPHINCTEROTOMY AND PAPILLOTOM 02/04/2012 98411 A1C (IN-HOUSE) 07/20/2012 MACI ARECHIGA 07/24/2012 41949 XRAY LUMBAR SPINE 2 OR 3 VIEWS 10/22/2012 47411 A1C (IN-HOUSE) 11/12/2012 07724 ROUTINE VENIPUNCTURE 11/12/2012 98526 GLUCOSE FINGER STICK 11/12/2012 70388 CBC 11/12/2012 46330 CMP 11/12/2012 53164 LIPID PANEL 11/12/2012 7549069 GFR CALC (RESULT ONLY) 11/12/2012 18311 TSH 11/12/2012 76863 VITAMIN D 25-HYDROXY (D2,D3 , TOTAL) 11/12/2012 04819 XRAY CHEST 2 VIEW 11/17/2012 62905 DEBRIDE NAIL >6 02/12/2013 39069 ROUTINE VENIPUNCTURE 02/16/2013 80993 GLUCOSE FINGER STICK 02/16/2013 70449 TESTOSTERONE PANEL (FREE, TOTAL, and SHBG) 02/17/2013 Podiatry Mckenzie Prescott 02/24/2013 15605 A1C (IN-HOUSE) 05/18/2013 56709 GLUCOSE FINGER STICK 05/18/2013 24985 ROUTINE VENIPUNCTURE 09/28/2013 88011 A1C (IN-HOUSE) 09/28/2013 28362 ALT/SGOT 09/28/2013 27497 CBC 09/28/2013 62626 CMP 09/28/2013 08675 LIPID PANEL 09/28/2013 1579453 GFR CALC (RESULT ONLY) 09/28/2013 44348 AMYLASE 09/28/2013 39422 LIPASE 09/28/2013 83102 PSA TOTAL 09/28/2013 68071 TSH 09/28/2013 19334 DEBRIDE NAIL >6 11/12/2013 43070 A1C (IN-HOUSE) 11/23/2013 66360 DEBRIDE NAIL >6 02/11/2014 32308 ROUTINE VENIPUNCTURE 02/22/2014 67411 VITAMIN D I-25 DIHYDROXY 02/22/2014 44832 CBC 02/22/2014 9800418 GFR CALC (RESULT ONLY) 02/22/2014 48609 CMP 02/22/2014 20123 LIPID PANEL 02/22/2014 51545 MAGNESIUM 02/22/2014 52393 TSH 02/22/2014 91510 AMYLASE 02/22/2014 24843 LIPASE 02/22/2014 34721 UA LONG DIP 10/04/2014 69660 ROUTINE VENIPUNCTURE 10/06/2014 33680 A1C (IN-HOUSE) 10/06/2014 6466445 GFR CALC (RESULT ONLY) 10/06/2014 78268 CMP 10/06/2014 71229 LIPID PANEL 10/06/2014 68539 CBC 10/06/2014 10736 PSA TOTAL 10/06/2014 18487 TSH 10/06/2014 86.27 DEBRIDEMENT OF NAIL, NAIL BED OR NAIL FO 01/17/2015 [id number] REPOSITION LEFT UPPER FEMUR WITH INTRAME 11/18/2015 [...] blood basophil count (count/volume) 0.0 10*3/uL 0.0-0.1 Blood lactic acid measurement (moles/volume) - 05/13/18 07:05 Blood lactic acid measurement (moles/volume) 0.78 mmol/L 0.50-2.00 PT panel in platelet poor plasma by coagulation assay - 05/13/18 07:05 Prothrombin time (PT) in platelet poor plasma by coagulation assay 12.7 s 12.2-14.7 INR in platelet poor plasma or blood by coagulation assay 1.0 0.8-1.4 Activated partial thromboplastin time (aPTT) in platelet poor plasma bycoagulation assay - 05/13/18 07:05 Activated partial thromboplastin time (aPTT) in platelet poor plasma bycoagulation assay 31 s 24-35 Fibrin D-dimer FEU measurement in platelet poor plasma (mass/volume) - 07:05 Fibrin D-dimer FEU measurement in platelet poor plasma (mass/volume) 0.87 ug/mL 0.00-0.49 Comprehensive metabolic panel - 05/13/18 07:05 Serum or plasma sodium measurement (moles/volume) 129 mmol/L 135-145 Serum or plasma potassium measurement (moles/volume) 4.5 mmol/L 3.6-5.0 Serum or plasma chloride measurement (moles/volume) 94 mmol/L 98-107 Carbon dioxide 25 mmol/L 21-32 Serum or plasma anion gap determination (moles/volume) 10 mmol/L 5-14 Serum or plasma urea nitrogen measurement (mass/volume) 16 mg/dL 7-18 Serum or plasma creatinine measurement (mass/volume) 0.91 mg/dL 0.60-1.30 Serum or plasma urea nitrogen/creatinine mass ratio 18 NRG Serum or plasma creatinine measurement with calculation of estimated glomerular filtration rate > NRG Serum or plasma glucose measurement (mass/volume) 127 mg/dL 70-105 Serum or plasma calcium measurement (mass/volume) 9.9 mg/dL 8.5-10.1 Serum or plasma total bilirubin measurement (mass/volume) 0.7 mg/dL 0.1-1.0 Serum or plasma alkaline phosphatase measurement (enzymatic activity/volume) 73 U/L 40-136 Serum or plasma aspartate aminotransferase measurement (enzymatic activity/ volume) 15 U/L 5-34 Serum or plasma alanine aminotransferase measurement (enzymatic activity/volume ) 13 U/L 0-55 Serum or plasma protein measurement (mass/volume) 7.0 g/dL 6.4-8.2 Serum or plasma albumin measurement (mass/volume) 4.2 g/dL 3.2-4.5 CALCIUM CORRECTED 9.7 mg/dL 8.5-10.1 Blood manual differential performed detection - 05/13/18 07:05 Blood monocytes/100 leukocytes 10 % NRG Manual blood segmented neutrophils/100 leukocytes 83 % NRG Blood band neutrophils/100 leukocytes 2 % NRG Manual blood lymphocytes/100 leukocytes 2 % NRG Manual eosinophils/100 leukocytes in nose 2 % NRG Blood lymphocytes variant/100 leukocytes 1 % NRG Blood erythrocyte morphology finding identification NORMAL NRG Complete urinalysis with reflex to culture - 05/13/18 07:15 Urine color determination YELLOW NRG Urine clarity determination VERY CLOUDY NRG Urine pH measurement by test strip 5 5-9 Specific gravity of urine by test strip 1.020 1.016- 1.022 Urine protein assay by test strip, semi-quantitative 3+ NEGATIVE Urine glucose detection by automated test strip 2+ NEGATIVE Erythrocytes detection in urine sediment by light microscopy 5+ NEGATIVE Urine ketones detection by automated test strip 2+ NEGATIVE Urine nitrite detection by test strip POSITIVE NEGATIVE Urine total bilirubin detection by test strip NEGATIVE NEGATIVE Urine urobilinogen measurement by automated test strip (mass/volume) 1 mg/dL NORMAL Urine leukocyte esterase detection by dipstick 3+ NEGATIVE Automated urine sediment erythrocyte count by microscopy (number/high power field) [HPF] NRG Automated urine sediment leukocyte count by microscopy (number/high power field ) TNTC NRG Bacteria detection in urine sediment by light microscopy LARGE NRG Crystals detection in urine sediment by light microscopy NONE NRG Casts detection in urine sediment by light microscopy NONE NRG Mucus detection in urine sediment by light microscopy NEGATIVE NRG Complete urinalysis with reflex to culture NO NRG Encounters ACCT No. Visit Date/Time Discharge Status Pt. Type Provider Facility Loc./Unit Complaint [id number] 10/06/2014 09:00:00 10/06/2014 23:59:59 CLS Outpatient SABINA CHOE APRN [id number] 10/04/2014 11:23:00 10/04/2014 23:59:59 CLS Outpatient SABINA CHOE APRN [id number] 10/04/2014 11:23:00 10/04/2014 23:59:59 CLS Outpatient SABINA CHOE APRN [id number] 08/02/2014 11:21:00 08/02/2014 23:59:59 CLS Outpatient SABINA CHOE APRN [id number] 02/22/2014 07:52:00 02/22/2014 23:59:59 CLS Outpatient SABINA CHOE APRN [id number] 02/11/2014 09:03:00 02/11/2014 23:59:59 CLS Outpatient SHELBI DPM, MCKENZIE [id number] 02/11/2014 09:03:00 02/11/2014 23:59:59 CLS Outpatient AILYN AVILA DO [id number] 11/23/2013 08:53:00 11/23/2013 23:59:59 CLS Outpatient SABINA CHOE APRN [id number] 11/23/2013 08:53:00 11/23/2013 23:59:59 CLS Outpatient SABINA CHOE APRN Martine [id number] 11/12/2013 10:10:00 11/12/2013 23:59:59 CLS Outpatient AILYN AVILA DO [id number] 09/28/2013 07:42:00 09/28/2013 23:59:59 CLS Outpatient SABINA CHOE APRN Martine [id number] 09/28/2013 07:42:00 09/28/2013 23:59:59 CLS Outpatient SABINA CHOE APRN Martine [id number] 08/19/2013 08:12:00 08/19/2013 23:59:59 CLS Outpatient SABINA CHOE APRN Martine [id number] 05/18/2013 07:56:00 05/18/2013 23:59:59 CLS Outpatient AILYN AVILA DO [id number] 02/16/2013 08:24:00 02/16/2013 23:59:59 CLS Outpatient SABINA CHOE APRN [id number] 07/23/2012 11:24:00 07/23/2012 23:59:59 CLS Outpatient [id number] 07/20/2012 09:34:00 07/20/2012 23:59:59 CLS Outpatient [id number] 07/20/2012 09:34:00 07/20/2012 23:59:59 CLS Outpatient BARBER YO APRN [id number] 07/08/2012 14:32:00 07/08/2012 23:59:59 CLS Outpatient [id number] 04/17/2012 11:30:00 04/17/2012 23:59:59 CLS Outpatient SANAZ [employer]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 [id number] 02/16/2013 08:24:00 Document Registration [id number] 02/12/2013 09:53:00 Document Registration [id number] 11/12/2012 08:59:00 Document Registration [id number] 11/05/2012 11:02:00 Document Registration [id number] 10/22/2012 08:46:00 Document Registration [id number] 10/15/2012 16:21:00 Document Registration [id number] 09/26/2017 11:58:00 09/26/2017 23:59:59 CLS Outpatient CARLOS OSHEA MD [facility] UA CULTURE [id number] 07/04/2017 17:51:00 07/07/2017 13:00:00 DIS Inpatient CARLA PLATT MD [facility] 4TH RLL PNA [id number] 2015 19:21:00 2015 23:59:59 CLS Outpatient CARLOS OSHEA MD [facility] UTI [id number] 11/17/2015 18:50:00 11/21/2015 14:37:00 DIS Inpatient CRISTO VILLAVICENCIO MD [facility] 4TH INTERTRECHANTERIC HIP FX, CHRONIC HYPONATREMIA [id number] 05/10/2015 09:28:00 05/11/2015 10:55:00 DIS Outpatient CORNELIUS URENA MD [facility] PAD,CAD,TOBACCOISM,HLP [id number] 04/26/2015 06:00:00 04/27/2015 10:10:00 DIS Outpatient SHELBI DPM, MCKENZIE Q [facility] SDC OSTEOMYLITIS LEFT FIRST TOE [id number] 04/24/2015 09:24:00 04/24/2015 23:59:59 CLS Outpatient SHELBI DPM, MCKENZIE Q [facility] PREOP OSTEOMYLITIS LEFT FIRST TOE [id number] 04/12/2015 09:33:00 04/13/2015 12:00:00 DIS Outpatient CORNELIUS URENA MD [facility] CAD,CT,HLP,HTN,ABNORMAL STRESS [id number] 04/10/2015 06:52:00 04/10/2015 23:59:59 CLS Outpatient CORNELIUS URENA MD [facility] CARD IDDM,PAD,ULCERATION OF FOOT [id number] 04/04/2015 12:09:00 04/04/2015 15:00:00 DIS Outpatient RUIZ OWUSU, RIK Mendoza [facility] WOUNDCARE [id number] 02/11/2015 20:50:00 02/14/2015 13:50:00 DIS Inpatient MAYE OWUSU, CRISTO Gunderson [facility] 4TH S/P FALLS; HEAD CONTUSION ;INABILITY TO CARE FOR [id number] 02/02/2015 14:30:00 02/02/2015 17:00:00 DIS Emergency ESDA PA, TAMIKO Esquivel [facility] ER FALL/DIZZY [id number] 01/18/2015 19:31:00 01/20/2015 10:30:00 DIS Inpatient AUSTIN AVILA, AILYN K [facility] 4TH VOLUME DEPLETION,DEBILITY ,CHRONIC HYPONATREMIA,DM [id number] 01/10/2015 12:47:00 01/18/2015 15:25:00 DIS Inpatient LEON OWUSU, VIRAL Ramirez [facility] IRF WEAKNESS [id number] 01/06/2015 13:39:00 01/10/2015 11:00:00 DIS Inpatient DORIE OUWSU, CARLOS Jackson [facility] 4TH HYPONATREMIA GENERALIZED WEAKNESS [id number] 05/13/2018 10:01:00 ACT Inpatient LC OWUSU, CARLA Villagran [facility] 4TH UTI,SEPSIS [id number] 04/04/2015 12:08:00 Document Registration [id number] 04/04/2015 12:08:00 Document Registration [id number] 04/04/2015 12:08:00 Document Registration [id number] 02/04/2012 16:20:00 Document Registration [id number] 04/04/2015 12:09:43 ACT Document Registration
[2018-05-13 10:50] VITALS: BP 169/79
--- NOTE | 2018-05-13 11:10 | History & Physicial (CHS) ---
GOPAL ZAMAN MEDICAL STUDENT 05/13/18 1110: HPI History of Present Illness: 67 year old male sent from intermediate for confusion and fever. Per intermediate, pt had a fever and has had to be on O2 at night. Pt had temperature 100.9 while in the ED prior to admission. Pt only oriented to self and points to his groin and says he has pain there. Source: intermediate records Exam Limitations: clinical condition Date seen by provider: May 13, 2018 Time Seen by Provider: 10:58 Attending Physician Carla Platt MD PCP Fei Wise MD Consult Date of Admission May 13, 2018 at 10:01 Home Medications Home Medications Reviewed patient Home Medication Reconciliation performed by pharmacy medication reconciliations occupational health technician and/or nursing. Patients Allergies have been reviewed. Allergies Coded Allergies: Cephalexin Monohydrate (Unverified Allergy, Unknown, 02/02/15) KZB-Ipjgjf-Lfwbrq Hx Patient Social History Alcohol Use: Denies Use Recreational Drug Use: No Smoking Status: Current Everyday Smoker Former smoker/When Quit: Apr 12, 2015 Type Used: Cigarettes Recent Foreign Travel: No Contact w/other who traveled: No Recent Hopitalizations: No Recent Infectious Disease Expo: No Immunizations Up To Date Tetanus Booster (TDap): Unknown Date of Pneumonia Vaccine: May 13, 2017 Date of Influenza Vaccine: Mar 23, 2017 Past Medical History Past medical history 1. Bipolar disorder 2. Diabetes mellitus type II 3. Hyperlipidemia 4. Peripheral neuropathy Past surgical history 1. Cholecystectomy 2. Right shoulder surgery Family Medical History Significant Family History: No Pertinent Family Hx Review of Systems (CHC) Other Limited due to pt's clinical condition Reviewed Test Results Reviewed Test Results Lab Laboratory Tests Test 05/13/18 07:05 05/13/18 07:15 Range/Units White Blood Count 13.0 H 4.3-11.0 10^3/uL Red Blood Count 3.79 L 4.35-5.85 10^6/uL Hemoglobin 12.3 L 13.3-17.7 G/DL Hematocrit 35 L 40-54 % Mean Corpuscular Volume 93 80-99 FL Mean Corpuscular Hemoglobin 33 25-34 PG Mean Corpuscular Hemoglobin Concent 35 32-36 G/DL Red Cell Distribution Width 12.4 10.0-14.5 % Platelet Count 231 130-400 10^3/uL Mean Platelet Volume 9.4 7.4-10.4 FL Neutrophils (%) (Auto) 78 H 42-75 % Lymphocytes (%) (Auto) 6 L 12-44 % Monocytes (%) (Auto) 14 H 0-12 % Eosinophils (%) (Auto) 2 0-10 % Basophils (%) (Auto) 0 0-10 % Neutrophils # (Auto) 10.1 H 1.8-7.8 X 10^3 Lymphocytes # (Auto) 0.8 L 1.0-4.0 X 10^3 Monocytes # (Auto) 1.8 H 0.0-1.0 X 10^3 Eosinophils # (Auto) 0.3 0.0-0.3 10^3/uL Basophils # (Auto) 0.0 0.0-0.1 10^3/uL Neutrophils % (Manual) 83 % Lymphocytes % (Manual) 2 % Monocytes % (Manual) 10 % Eosinophils % (Manual) 2 % Band Neutrophils 2 % Reactive Lymphocytes 1 % Blood Morphology Comment NORMAL Prothrombin Time 12.7 12.2-14.7 SEC INR Comment 1.0 0.8-1.4 Activated Partial Thromboplast Time 31 24-35 SEC D-Dimer 0.87 H 0.00-0.49 UG/ML Sodium Level 129 L 135-145 MMOL/L Potassium Level 4.5 3.6-5.0 MMOL/L Chloride Level 94 L 98-107 MMOL/L Carbon Dioxide Level 25 21-32 MMOL/L Anion Gap 10 5-14 MMOL/L Blood Urea Nitrogen 16 7-18 MG/DL Creatinine 0.91 0.60-1.30 MG/DL Estimat Glomerular Filtration Rate > 60 BUN/Creatinine Ratio 18 Glucose Level 127 H 70-105 MG/DL Lactic Acid Level 0.78 0.50-2.00 MMOL/L Calcium Level 9.9 8.5-10.1 MG/DL Corrected Calcium 9.7 8.5-10.1 MG/DL Total Bilirubin 0.7 0.1-1.0 MG/DL Aspartate Amino Transf (AST/SGOT) 15 5-34 U/L Alanine Aminotransferase (ALT/SGPT) 13 0-55 U/L Alkaline Phosphatase 73 40-136 U/L Total Protein 7.0 6.4-8.2 GM/DL Albumin 4.2 3.2-4.5 GM/DL Urine Color YELLOW Urine Clarity VERY CLOUDY H Urine pH 5 5-9 Urine Specific [place] 1.020 1.016-1.022 Urine Protein 3+ H NEGATIVE Urine Glucose (UA) 2+ H NEGATIVE Urine Ketones 2+ H NEGATIVE Urine Nitrite POSITIVE H NEGATIVE Urine Bilirubin NEGATIVE NEGATIVE Urine Urobilinogen 1 NORMAL MG/DL Urine Leukocyte Esterase 3+ H NEGATIVE Urine RBC (Auto) 5+ H NEGATIVE Urine RBC 50-100 H /HPF Urine WBC TNTC H /HPF Urine Crystals NONE /LPF Urine Bacteria LARGE H /HPF Urine Casts NONE /LPF Urine Mucus NEGATIVE /LPF Urine Culture Indicated NO Physical Exam-([facility]) Physical Exam Vital Signs VS - Last 72 Hours, by Label 05/13/18 05/13/18 05/13/18 05/13/18 07:00 07:49 10:25 10:50 Temp 100.6 100.6 98.8 Pulse 102 105 114 Resp 22 16 26 B/P (MAP) 162/78 (106) 155/75 (101) 169/79 (109) Pulse Ox 96 97 94 93 O2 Delivery Room Air Room Air Room Air Capillary Refill : Less Than 3 Seconds General Appearance: WD/WN, no apparent distress Eyes: Bilateral Eye EOMI HEENT: No scleral icterus (R), No scleral icterus (L) Respiratory: no respiratory distress, decreased breath sounds Cardiovascular: no edema, tachycardia Gastrointestinal: normal bowel sounds, non tender, soft Extremities: no pedal edema Neurologic/Psychiatric: other (Oriented to self, not oriented to date, time, or place) Skin: normal color, warm/dry Comments limited due to pt's clinical condition Assessment/Plan Assessment/Plan Admission Status: Inpatient Order (span 2 midnights) Reason for Inpatient Admission: UTI 05/13 - continue pt on iv antibiotics AMS 05/13 - suspected to be secondary to UTI Clinical Quality Measures Smoking Cessation Counseling: Counseling-Symptomatic: 10+Minutes Copy Copies To 1: [facility], SONIA Rankin HOLLY R MD 05/14/18 1342: HPI History of Present Illness: Reviewed history with patient. Patient confused and unable to answer questions. Source: old records Exam Limitations: clinical condition Home Medications Allergies Coded Allergies: Cephalexin Monohydrate (Unverified Allergy, Unknown, 02/02/15) BSH-Pmlheg-Ipnula Hx Patient Social History Living Status: medical [facility] Past Medical History NIDDM COPD h/o Anemia Review of Systems ([facility]) Constitutional: other (Unable to get due to clinical conditions) Physical Exam-([facility]) Physical Exam General Appearance: no apparent distress, other (Confused) HEENT: PERRL/EOMI Neck: non-tender, supple Respiratory: no respiratory distress, no accessory muscle use, decreased breath sounds Cardiovascular: normal peripheral pulses, no gallop, no murmur, tachycardia Gastrointestinal: normal bowel sounds, non tender, soft Back: no CVA tenderness, no vertebral tenderness Extremities: no pedal edema, no calf tenderness, normal capillary refill Neurologic/Psychiatric: disoriented x 3, other (Oriented to self, not oriented to date, time, or place, moving all extremities) Skin: normal color, warm/dry Lymphatic: no adenopathy Assessment/Plan Assessment/Plan Admission Status: Inpatient Order (span 2 midnights) Reason for Inpatient Admission: Requiring IV anitbiotics and fluids (1) Sepsis Status: Acute Assessment & Plan: - IV fluid resuscitation completed, will continue IVs at 100 /hr, Start antibiotics, cultures pending Qualifiers: Qualified Codes: A41.9 - Sepsis, unspecified organism (2) Urinary tract infection Status: Acute Qualifiers: Qualified Codes: N30.01 - Acute cystitis with hematuria (3) Hyponatremia Status: Acute Assessment & Plan: - Likely hypovolemic hyponatremia, will continue to hydrate and monitor daily BMP (4) Elevated d-dimer Status: Acute (5) DVT prophylaxis Status: Acute Assessment & Plan: - GOPAL Santos MEDICAL STUDENT May 13, 2018 11:10 CARLA PLATT MD May 14, 2018 13:42
[2018-05-13] MEDS ORDERED: VENL150C98 PO (11:25)
[2018-05-13] MEDS ORDERED: TRAM50TA2 PO (11:25)
[2018-05-13] MEDS ORDERED: ALBU1.25 NEB (11:25)
[2018-05-13] MEDS ORDERED: TAMS0.4C2 PO (11:25)
[2018-05-13] MEDS ORDERED: LURA40TA3 PO (11:25)
[2018-05-13] MEDS ORDERED: GABA-488 PO (11:25)
[2018-05-13] MEDS ORDERED: CALC500T3 PO (11:25)
[2018-05-13] MEDS ORDERED: ZINC57OI8 TP (11:25)
[2018-05-13] MEDS ORDERED: GUAI-613 PO (11:25)
[2018-05-13] MEDS ORDERED: SIMV20TA3 PO (11:25)
[2018-05-13] MEDS ORDERED: IBUP-30 PO (11:25)
[2018-05-13] MEDS: NS IV 1000 ML 1,000 ML IV SCH (11:39)
[2018-05-13 11:40] VITALS: BP 162/78
[2018-05-13 12:00] VITALS: BP 184/81
[2018-05-13] MEDS ORDERED: RT-ALBUTEROL/IPRATROPIUM 3 ML (DUONEB) VIAL INH PRN (12:00)
[2018-05-13] MEDS: fentaNYL INJECTION 100 MCG/2 ML AMP IVP PRN ×2 (12:09→16:22)
[2018-05-13 16:00] VITALS: BP 181/81
[2018-05-13] MEDS: PIPERACILLIN/TAZO 4.5 GM/NS 100 ML IV SCH ×2 (16:21)
[2018-05-13] MEDS ORDERED: ACETAMINOPHEN 500 MG TAB (TYLENOL) PO PRN (17:15)
[2018-05-13] MEDS: RT-ALBUTEROL/IPRATROPIUM 3 ML (DUONEB) VIAL INH SCH ×2 (17:19→19:31)
[2018-05-13 19:33] LABS: CALCIUM 9.2 MG/DL (8.5-10.1); CARBON DIOXIDE 23 MMOL/L (21-32); CHLORIDE 96 MMOL/L (98-107); GLUCOSE 120 MG/DL (70-105); POTASSIUM 4.1 MMOL/L (3.6-5.0); SODIUM 130 MMOL/L (135-145)
[2018-05-13 19:50] VITALS: BP 163/75
[2018-05-13 20:03] LABS: BUN/CREATININE RATIO 17; CREATININE SERUM 0.86 MG/DL (0.60-1.30); GFR ESTIMATED > 60
[2018-05-13] MEDS: GABAPENTIN 300 MG (NEURONTIN) CAP PO SCH (21:11)
[2018-05-13] MEDS: SIMvastatin 20 MG (ZOCOR) TAB PO SCH (21:11)
[2018-05-14] VITALS: BP 168/81
[2018-05-14] MEDS: PIPERACILLIN/TAZO 4.5 GM/NS 100 ML IV SCH ×8 (00:28→22:23)
[2018-05-14 04:00] VITALS: BP 146/92
[2018-05-14] MEDS: NS IV 1000 ML 1,000 ML IV SCH ×2 (04:08→14:21)
[2018-05-14 05:53] LABS: BASOPHILS % (AUTO) 0 % (0-10); EOSINOPHILS # (AUTO) 0.1 10^3/uL (0.0-0.3); EOSINOPHILS % (AUTO) 1 % (0-10); HEMATOCRIT 36 % (40-54); HEMOGLOBIN 12.8 G/DL (13.3-17.7); LYMPHOCYTES % (AUTO) 8 % (12-44); MEAN CORPUSCULAR HEMOGLOBIN 33 PG (25-34); MEAN CORPUSCULAR HGB CONC 35 G/DL (32-36); MEAN CORPUSCULAR VOLUME 93 FL (80-99); MONOCYTES # (AUTO) 1.8 X 10^3 (0.0-1.0); MONOCYTES % (AUTO) 15 % (0-12); NEUTROPHILS % (AUTO) 76 % (42-75); PLATELET COUNT 229 10^3/uL (130-400); RED BLOOD COUNT 3.92 10^6/uL (4.35-5.85); RED CELL DISTRIBUTION WIDTH 12.3 % (10.0-14.5); WHITE BLOOD COUNT 11.9 10^3/uL (4.3-11.0)
[2018-05-14 06:13] LABS: ALANINE AMINOTRANSFERASE 14 U/L (0-55); ALBUMIN 3.7 GM/DL (3.2-4.5); ALKALINE PHOSPHATASE 71 U/L (40-136); BILIRUBIN,TOTAL 0.9 MG/DL (0.1-1.0); BUN/CREATININE RATIO 16; CALCIUM 9.4 MG/DL (8.5-10.1); CARBON DIOXIDE 22 MMOL/L (21-32); CHLORIDE 97 MMOL/L (98-107); CHOLESTEROL 119 MG/DL (< 200); CREATININE SERUM 0.86 MG/DL (0.60-1.30); GFR ESTIMATED > 60; GLUCOSE 107 MG/DL (70-105); HDL CHOLESTEROL 33 MG/DL (40-60); SODIUM 131 MMOL/L (135-145); TOTAL PROTEIN 6.4 GM/DL (6.4-8.2); TRIGLYCERIDES 81 MG/DL (<150); VLDL CHOLESTEROL 16 MG/DL (5-40)
[2018-05-14] MEDS: RT-ALBUTEROL/IPRATROPIUM 3 ML (DUONEB) VIAL INH SCH ×4 (07:20→19:06)
[2018-05-14 08:00] VITALS: BP 144/75
[2018-05-14] MEDS: GABAPENTIN 300 MG (NEURONTIN) CAP PO SCH ×3 (08:23→20:36)
[2018-05-14] MEDS: CLOPIDOGREL 75 MG (PLAVIX) TABLET PO SCH (08:23)
[2018-05-14] MEDS: FOLIC ACID 1 MG TAB PO SCH (08:23)
[2018-05-14] MEDS: VENlafaxine XR 75 MG (EFFEXOR XR) CAP PO SCH (08:23)
[2018-05-14] MEDS: TAMSULOSIN 0.4 MG (FLOMAX) CAP PO SCH (08:23)
[2018-05-14] MEDS: ASPIRIN E.C. 81 MG (ECOTRIN) TAB PO SCH (08:25)
[2018-05-14] MEDS: NICOTINE 21 MG (NICODERM) PATCH TD SCH (08:31)
[2018-05-14] MEDS: PATCH REMOVAL TP SCH (08:32)
[2018-05-14 12:00] VITALS: BP 138/71
--- NOTE | 2018-05-14 13:48 | Progress Note (SOAP) ---
Subjective Subjective/Events-last exam Patient feeling much better today. At baseline. Tolerating PO diet. BM this AM. Review of Systems Date Seen by Provider: May 14, 2018 Time Seen by Provider: 13:00 Pulmonary: No Dyspnea, No Cough Cardiovascular: No: Chest Pain, Palpitations, Edema Gastrointestinal: No: Nausea, Vomiting, Abdominal Pain Musculoskeletal: back pain Focused Exam Lactate Level 05/13/18 07:05: Lactic Acid Level 0.78 Objective Exam Last Set of Vital Signs Vital Signs Date Time Temp Pulse Resp B/P (MAP) Pulse Ox O2 Delivery O2 Flow Rate FiO2 05/14/18 10:42 96 Nasal Cannula 2.00 05/14/18 08:00 98.6 92 18 144/75 (98) Capillary Refill : Less Than 3 Seconds I&O Intake and Output 05/14/18 00:00 Intake Total 1500 ml Output Total 1650 ml Balance -150 ml Intake Oral 400 ml IV Total 1100 ml Output Urine Total 1650 ml # Bowel Movements 3 Daily Weight Change Unsure General: Alert, Oriented X3, Cooperative, No Acute Distress HEENT: Mucous Memb Moist/Carmine Lungs: Clear to Auscultation, Normal Air Movement Heart: Regular Rate, No Murmurs Abdomen: Normal Bowel Sounds, Soft, No Tenderness, No Masses Extremities: No Edema, No Tenderness/Swelling Skin: No Rashes Neuro: Strength at 5/5 X4 Ext, Sensation Intact, Cranial Nerves 3-12 NL Results/Procedures Lab Laboratory Tests 05/13/18 19:06: Sodium Level 130L, Potassium Level 4.1, Chloride Level 96L, Carbon Dioxide Level 23, Anion Gap 11, Blood Urea Nitrogen 15, Creatinine 0.86, Estimat Glomerular Filtration Rate > 60, BUN/Creatinine Ratio 17, Glucose Level 120H, Calcium Level 9.2 05/13/18 21:19: Glucometer 130H 05/14/18 05:15: Sodium Level 131L, Potassium Level 4.0, Chloride Level 97L, Carbon Dioxide Level 22, Anion Gap 12, Blood Urea Nitrogen 14, Creatinine 0.86, Estimat Glomerular Filtration Rate > 60, BUN/Creatinine Ratio 16, Glucose Level 107H, Calcium Level 9.4, White Blood Count 11.9H, Red Blood Count 3.92L, Hemoglobin 12.8L, Hematocrit 36L, Mean Corpuscular Volume 93, Mean Corpuscular Hemoglobin 33, Mean Corpuscular Hemoglobin Concent 35, Red Cell Distribution Width 12.3, Platelet Count 229, Mean Platelet Volume 9.0, Neutrophils (%) (Auto) 76H, Lymphocytes (%) (Auto) 8L, Monocytes (%) (Auto) 15H, Eosinophils (%) (Auto) 1, Basophils (%) (Auto) 0, Neutrophils # (Auto) 9.0H, Lymphocytes # (Auto) 1.0, Monocytes # (Auto) 1.8H, Eosinophils # (Auto) 0.1, Basophils # (Auto) 0.0, Corrected Calcium 9.6, Total Bilirubin 0.9, Aspartate Amino Transf (AST/SGOT) 15 , Alanine Aminotransferase (ALT/SGPT) 14, Alkaline Phosphatase 71, Total Protein 6.4, Albumin 3.7, Triglycerides Level 81, Cholesterol Level 119, LDL Cholesterol Direct 66, VLDL Cholesterol 16, HDL Cholesterol 33L Assessment/Plan Assessment/Plan (1) Sepsis Status: Acute Assessment & Plan: - IV fluid resuscitation completed, will continue IVs at 100 /hr, Start antibiotics, cultures pending 05/14: D/c IVFs, urine culture pending, continue Rocephin D2 Qualifiers: Qualified Codes: A41.9 - Sepsis, unspecified organism (2) Urinary tract infection Status: Acute Qualifiers: Qualified Codes: N30.01 - Acute cystitis with hematuria (3) Hyponatremia Status: Acute Assessment & Plan: - Likely hypovolemic hyponatremia, will continue to hydrate and monitor daily BMP 05/14: Trending up, continue to monitor (4) Elevated d-dimer Status: Acute (5) DVT prophylaxis Status: Acute Assessment & Plan: - Lovenox Clinical Quality Measures DVT/VTE Risk/Contraindication: Risk Factor Score Per Nursin RFS Level Per Nursing on Admit: 4+=Very High Smoking Cessation Counseling: Counseling-Symptomatic: 10+Minutes CARLA PLATT MD May 14, 2018 13:48
[2018-05-14] MEDS: ENOXAPARIN 40 MG/0.4 ML (LOVENOX) SYR SC SCH (14:20)
[2018-05-14 15:20] VITALS: BP 144/67
[2018-05-14 19:45] VITALS: BP 128/63
[2018-05-14] MEDS: SIMvastatin 20 MG (ZOCOR) TAB PO SCH (20:36)
[2018-05-15] VITALS: BP 147/63
[2018-05-15] MEDS: NS IV 1000 ML 1,000 ML IV SCH (03:31)
[2018-05-15 04:00] VITALS: BP 145/63
[2018-05-15 05:52] LABS: BASOPHILS % (AUTO) 0 % (0-10); EOSINOPHILS # (AUTO) 0.3 10^3/uL (0.0-0.3); EOSINOPHILS % (AUTO) 4 % (0-10); HEMATOCRIT 30 % (40-54); HEMOGLOBIN 10.6 G/DL (13.3-17.7); LYMPHOCYTES % (AUTO) 13 % (12-44); MEAN CORPUSCULAR HEMOGLOBIN 33 PG (25-34); MEAN CORPUSCULAR HGB CONC 35 G/DL (32-36); MEAN CORPUSCULAR VOLUME 93 FL (80-99); MEAN PLATELET VOLUME 8.6 FL (7.4-10.4); MONOCYTES # (AUTO) 1.3 X 10^3 (0.0-1.0); MONOCYTES % (AUTO) 16 % (0-12); NEUTROPHILS # (AUTO) 5.1 X 10^3 (1.8-7.8); NEUTROPHILS % (AUTO) 67 % (42-75); PLATELET COUNT 242 10^3/uL (130-400); RED BLOOD COUNT 3.26 10^6/uL (4.35-5.85); RED CELL DISTRIBUTION WIDTH 12.4 % (10.0-14.5); WHITE BLOOD COUNT 7.7 10^3/uL (4.3-11.0)
[2018-05-15] MEDS: PIPERACILLIN/TAZO 4.5 GM/NS 100 ML IV SCH ×2 (06:21)
[2018-05-15 06:25] LABS: BUN/CREATININE RATIO 22; CALCIUM 8.7 MG/DL (8.5-10.1); CARBON DIOXIDE 24 MMOL/L (21-32); CHLORIDE 98 MMOL/L (98-107); CREATININE SERUM 0.86 MG/DL (0.60-1.30); GFR ESTIMATED > 60; GLUCOSE 115 MG/DL (70-105); SODIUM 131 MMOL/L (135-145)
[2018-05-15] MEDS: RT-ALBUTEROL/IPRATROPIUM 3 ML (DUONEB) VIAL INH SCH ×2 (07:58→11:54)
[2018-05-15 08:09] VITALS: BP 137/67
[2018-05-15] MEDS: ASPIRIN E.C. 81 MG (ECOTRIN) TAB PO SCH (08:34)
[2018-05-15] MEDS: VENlafaxine XR 75 MG (EFFEXOR XR) CAP PO SCH (08:34)
[2018-05-15] MEDS: NICOTINE 21 MG (NICODERM) PATCH TD SCH (08:34)
[2018-05-15] MEDS: CLOPIDOGREL 75 MG (PLAVIX) TABLET PO SCH (08:34)
[2018-05-15] MEDS: TAMSULOSIN 0.4 MG (FLOMAX) CAP PO SCH (08:34)
[2018-05-15] MEDS: FOLIC ACID 1 MG TAB PO SCH (08:34)
[2018-05-15] MEDS: GABAPENTIN 300 MG (NEURONTIN) CAP PO SCH ×2 (08:34→11:52)
[2018-05-15] MEDS: PATCH REMOVAL TP SCH (08:35)
[2018-05-15 11:41] VITALS: BP 130/62
--- NOTE | 2018-05-15 11:59 | Discharge Summary ---
Diagnosis/Chief Complaint Date of Admission May 13, 2018 at 10:01 am Date of Discharge 05/15/18 Admission Diagnosis Admission Diagnosis Sepsis due to UTI UTI Hyponatremia Elevated D-Dimer Discharge Diagnosis See Below Problems/Diagnosis: (1) Sepsis Assessment & Plan: - IV fluid resuscitation completed, will continue IVs at 100 /hr, Start antibiotics, cultures pending 05/14: D/c IVFs, urine culture pending, continue Rocephin D2 Qualifiers: Qualified Codes: A41.9 - Sepsis, unspecified organism Status: Acute (2) Urinary tract infection Qualifiers: Qualified Codes: N30.01 - Acute cystitis with hematuria Status: Acute (3) Hyponatremia Assessment & Plan: - Likely hypovolemic hyponatremia, will continue to hydrate and monitor daily BMP 05/14: Trending up, continue to monitor Status: Acute (4) Elevated d-dimer Status: Acute (5) DVT prophylaxis Assessment & Plan: - Lovenox Status: Acute Chief Complaint/HPI Chief Complaint/HPI Reviewed history with patient. Patient confused and unable to answer questions. Discharge Summary-Simple/Stand Consultations Discharge Physical Examination Allergies: Coded Allergies: Cephalexin Monohydrate (Unverified Allergy, Unknown, 02/02/15) Vitals & I&Os Vital Sign - Last 12Hours Date Time Temp Pulse Resp B/P (MAP) Pulse Ox O2 Delivery O2 Flow Rate FiO2 05/15/18 11:41 97.0 75 18 130/62 (84) 96 Nasal Cannula 2.00 Intake and Output 05/15/18 00:00 Intake Total 2470 ml Output Total 1000 ml Balance 1470 ml General Appearance: Alert, Oriented X3, Cooperative, No Acute Distress HEENT: Mucous Memb Moist/Amelia Respiratory: Clear to Auscultation, Normal Air Movement Cardiovascular: Regular Rate, No Murmurs Abdominal: Normal Bowel Sounds, Soft, No Tenderness, No Masses Extremities: No Edema, No Tenderness/Swelling Skin: No Rashes Neuro: Strength at 5/5 X4 Ext, Sensation Intact, Cranial Nerves 3-12 NL Psych/Mental Status: Mental Status NL, Mood NL Hospital Course See final discharge diagnosis. Pending Labs Klebsiella UTI, sensitivities pending Discussion & Recommendations 67 yo M that presents with altered mental status due to sepsis from UTI. Patient improved with IVFs and antibiotics. He will be discharged back to [place] today to complete PO antibiotics for Klebsiella UTI. Discharge Condition at discharge stable Instructions to patient/family Please see electronic discharge instructions given to patient. Discharge Medications Reviewed and agree with Discharge Medication list on patient's Discharge Instruction sheet Clinical Quality Measures DVT/VTE Risk/Contraindication: Risk Factor Score Per Nursin RFS Level Per Nursing on Admit: 4+=Very High Smoking Cessation Counseling: Counseling-Symptomatic: 10+Minutes Copy Copies To 1: [facility]ITAL[facility] APRN GAULT, HOLLY R MD May 15, 2018 11:59
[2018-05-15] MEDS ORDERED: CIPR-225 PO (12:02)
--- NOTE | 2018-05-15 12:04 | Discharge Instructions ---
Discharge [facility] Discharge Medications New, Converted or Re-Newed RX: Other New Medications: Ciprofloxacin HCl (Cipro) 500 Mg Tablet 500 MG PO BID for 5 Days, #10 TAB Continued Medications: Albuterol Sulfate (Albuterol Sulfate) 1.25 Mg/3 Ml Vial.neb 1.25 MG NEB Q12H PRN for SHORTNESS OF BREATH, EACH Aspirin (Aspirin EC) 81 Mg Tablet.dr 81 MG PO DAILY, TAB Calcium Carbonate (Calcium Carbonate) 500 Mg Tablet 2 TAB PO Q12H PRN for HEARTBURN, TAB Cholecalciferol (Vitamin D3) (Vitamin D3) 1,000 Unit Capsule 2000 UNITS PO DAILY, CAP TAKES 2 (1,000 UNIT) CAPSULES Clopidogrel Bisulfate (Clopidogrel) 75 Mg Tablet 75 MG PO DAILY, TAB Ferrous Sulfate (Ferrous Sulfate) 325 Mg Tablet 325 MG PO DAILY, TAB Folic Acid (Folic Acid) 1 Mg Tablet 1 MG PO DAILY, TAB Gabapentin (Gabapentin) 300 Mg Capsule 300 MG PO TID, CAP Guaifenesin (Carlota-Tussin) 100 Mg/5 Ml Liquid 15 ML PO Q6H PRN for COUGH, EA Lactobac Cmb #3/Fos/Pantethine (Probiotic & Acidophilus Cap) 1 Each Capsule 1 CAP PO HS, CAP Lurasidone HCl (Latuda) 40 Mg Tablet 40 MG PO DAILY, TAB Menthol (Cough Drops) 5.8 Mg Lozenge 1 ELAINE MM EVERY 2-4 HOURS PRN for COUGH, LOZENGE Metformin HCl (Metformin HCl) 1,000 Mg Tablet 1000 MG PO BID, TAB Multivits,Stress Formula/Zinc (Stress B with Zinc Tablet) 1 Each Tablet 1 TAB PO DAILY, TAB Pioglitazone HCl (Pioglitazone HCl) 45 Mg Tablet 45 MG PO DAILY, TAB Polyethylene Glycol 3350 (Miralax) 17 Gm Powd.pack 17 GM PO DAILY PRN for CONSTIPATION-2ND LINE, EACH Rivastigmine Tartrate (Rivastigmine) 1.5 Mg Capsule 1.5 MG PO BID, CAP Simvastatin (Simvastatin) 20 Mg Tablet 20 MG PO HS, TAB Tamsulosin HCl (Tamsulosin HCl) 0.4 Mg Cap.er.24h 0.4 MG PO DAILY, CAP Tramadol HCl (Tramadol HCl) 50 Mg Tablet 50 MG PO 0700,1200,1600,2100, TAB Venlafaxine HCl (Venlafaxine HCl ER) 150 Mg Cap.er.24h 150 MG PO DAILY, CAP Zinc Oxide (Zinc Oxide) 57 Gm Oint...g. TP Q12H, TUBE Discontinued Medications: Ibuprofen (Advil) 200 Mg Tablet 600 MG PO 0700,1200,1600,2100, TAB Patient Instructions Goal/Follow Up Appt: Maureen will see you back [place] the [place] Continue previous [place] orders [facility] For: - Unable to take meds Activity & Diet Discharge Diet: ADA Diet Activity as Tolerated: Yes Copy Copies To 1: [facility] SONIA Rankin HOLLY R MD May 15, 2018 12:04 pm
[2018-05-15] MEDS: ENOXAPARIN 40 MG/0.4 ML (LOVENOX) SYR SC SCH (13:55)
== END 2018-05-15 14:21 | DRG 872 ==
LOC: EDUNIT# 07:00 → ER 07:01 → 4TH 10:01
PROVIDERS: ADMIT Family Medicine; ATTEND Family Medicine
DX: A41.89 Other specified sepsis (principal); N30.01 Acute cystitis with hematuria; B96.1 Klebsiella pneumoniae [K. pneumoniae] as the cause of diseases classified elsewhere; E87.1 Hypo-osmolality and hyponatremia; N31.9 Neuromuscular dysfunction of bladder, unspecified; E11.42 Type 2 diabetes mellitus with diabetic polyneuropathy; Z79.4 Long term (current) use of insulin; I25.10 Atherosclerotic heart disease of native coronary artery without angina pectoris; J44.9 Chronic obstructive pulmonary disease, unspecified; K21.9 Gastro-esophageal reflux disease without esophagitis; F17.210 Nicotine dependence, cigarettes, uncomplicated; F90.9 Attention-deficit hyperactivity disorder, unspecified type; F41.9 Anxiety disorder, unspecified; F31.9 Bipolar disorder, unspecified; E78.5 Hyperlipidemia, unspecified; Z89.422 Acquired absence of other left toe(s)
CPT/HCPCS: 36415; 51702; 70450; 71045; 80048; 80053; 80061; 81000; 82962; 83605; 85007; 85025; 85027; 85379; 85610; 85730; 87040; 87077; 87088; 87186; 93041; 94640; 94760; 96361; 96365

== ENCOUNTER 2019-02-23 01:04 | Emergency (ER) | payer MEDICARE, MEDICAID ==
[~2019-02-23] VITALS: Ht 182.9 cm; Wt 86.2 kg
[~2019-02-23 01:04] MED LIST changes: +ALBU1.25 NEB; +CALC500T64 PO; +CYAN-41 PO; -CYAN10006 PO; +DULO60CA59 PO; +GUAI-613 PO; +IBUP-30 PO; +SIMV20TA3 PO; +TAMS0.4C2 PO; +VENL150C98 PO; +ZINC57OI8 TP
[2019-02-23] MEDS ORDERED: HYDROcodone/APAP 5 MG/325 MG (LORTAB) TAB PO ONE ×2 (04:15→06:15)
[2019-02-23 05:52] LABS: BILIRUBIN,URINE NEGATIVE (NEGATIVE); CLARITY,URINE CLEAR; COLOR,URINE YELLOW; GLUCOSE, URINE (UA) 1+ (NEGATIVE); KETONES,URINE NEGATIVE (NEGATIVE); LEUKOCYTE ESTERASE ,URINE NEGATIVE (NEGATIVE); NITRITE,URINE NEGATIVE (NEGATIVE); PH,URINE 6.5 (5-9); PROTEIN,URINE NEGATIVE (NEGATIVE); UROBILINOGEN,URINE NORMAL (NORMAL)
[2019-02-23 06:02] LABS: BACTERIA,URINE TRACE /HPF
--- NOTE | 2019-02-23 06:24 | ED Fall/Injury ---
General Chief Complaint: Trauma-Non Activation Stated Complaint: FALL Nursing Triage Note: TO ED ROOM 7 [facility]IA [facility] FROM [facility] [place] STATING HE WAS OUTSIDE OF FACILITY SMOKING IN HIS W/C WHEN HE HIT A CRACK IN SIDEWALK AND FELL OUT AND HIT RIGHT SIDE OF HEAD, LAC TO RIGHT SIDE FOREHEAD, LAC TO RIGHT KNEE, AND LAC TO LEFT NATHAN. UNKNOWN IF LOC OCCURRED. PT ALERT AND ORIENTED X4 UPON ARRIVAL. Source: patient, EMS Exam Limitations: no limitations History of Present Illness Date Seen by Provider: Feb 23, 2019 Time Seen by Provider: 01:04 Initial Comments This 68-year-old man is brought to emergency room via EMS from [facility] in [place] after falling out of his wheelchair. Patient has smoking privileges and was outside by himself unsupervised when his wheelchair struck an uneven surface causing him to tip over. He has abrasions on the lower extremities bilaterally and on the right forehead. He additionally complains of significant pain in the right shoulder. He is unable to lift his shoulder. There was no loss of consciousness. Patient reports he is up-to-date on his tetanus immunization. Allergies and Home Medications Allergies Coded Allergies: Cephalexin Monohydrate (Unverified Allergy, Unknown, 02/02/15) warfarin (Verified Allergy, Unknown, 02/23/19) Home Medications Albuterol Sulfate 1.25 Mg/3 Ml Vial.neb, 1.25 MG NEB Q12H PRN for SHORTNESS OF BREATH, (Reported) Aspirin 81 Mg Tablet.dr, 81 MG PO DAILY, (Reported) Calcium Carbonate 500 Mg Tablet, 2 TAB PO Q12H PRN for HEARTBURN, (Reported) Cholecalciferol (Vitamin D3) 1,000 Unit Capsule, 2,000 UNITS PO DAILY, (Reported) TAKES 2 (1,000 UNIT) CAPSULES Ciprofloxacin HCl 500 Mg Tablet, 500 MG PO BID Prescribed by: CARLA PLATT on 05/15/18 1202 Clopidogrel Bisulfate 75 Mg Tablet, 75 MG PO DAILY, (Reported) Docusate Sodium 100 Mg Capsule, 100 MG PO DAILY PRN for CONSTIPATION-1ST LINE Prescribed by: VERONICA ACEVEDO on 02/23/19 0629 Ferrous Sulfate 325 Mg Tablet, 325 MG PO DAILY, (Reported) Folic Acid 1 Mg Tablet, 1 MG PO DAILY, (Reported) Gabapentin 300 Mg Capsule, 300 MG PO TID, (Reported) Guaifenesin 100 Mg/5 Ml Liquid, 15 ML PO Q6H PRN for COUGH, (Reported) Hydrocodone Bit/Acetaminophen 1 Tab Tab, 1 EACH PO Q4-6HR PRN for PAIN-MODERATE Prescribed by: VERONICA ACEVEDO on 02/23/19 0629 Lactobac Cmb #3/Fos/Pantethine 1 Each Capsule, 1 CAP PO HS, (Reported) Lurasidone HCl 40 Mg Tablet, 40 MG PO DAILY, (Reported) Menthol 5.8 Mg Lozenge, 1 ELAINE MM EVERY 2-4 HOURS PRN for COUGH, (Reported) Metformin HCl 1,000 Mg Tablet, 1,000 MG PO BID, (Reported) Multivits,Stress Formula/Zinc 1 Each Tablet, 1 TAB PO DAILY, (Reported) Pioglitazone HCl 45 Mg Tablet, 45 MG PO DAILY, (Reported) Polyethylene Glycol 3350 17 Gm Powd.pack, 17 GM PO DAILY PRN for CONSTIPATION- 2ND LINE, (Reported) Rivastigmine Tartrate 1.5 Mg Capsule, 1.5 MG PO BID, (Reported) Simvastatin 20 Mg Tablet, 20 MG PO HS, (Reported) Tamsulosin HCl 0.4 Mg Cap.er.24h, 0.4 MG PO DAILY, (Reported) Tramadol HCl 50 Mg Tablet, 50 MG PO 0700,1200,1600,2100, (Reported) Venlafaxine HCl 150 Mg Cap.er.24h, 150 MG PO DAILY, (Reported) Zinc Oxide 57 Gm Oint...g., TP Q12H, (Reported) Patient Home Medication List Home Medication List Reviewed: Yes Review of Systems Review of Systems Constitutional: no symptoms reported Eyes: No Symptoms Reported Ears, Nose, Mouth, Throat: no symptoms reported Respiratory: no symptoms reported Cardiovascular: no symptoms reported Gastrointestinal: no symptoms reported Genitourinary: no symptoms reported Musculoskeletal: see HPI Skin: see HPI Psychiatric/Neurological: No Symptoms Reported Past Dadexfc-Monejf-Pqujcp Hx Patient Social History Alcohol Use: Denies Use Recreational Drug Use: No Smoking Status: Current Everyday Smoker Type Used: Cigarettes Recent Foreign Travel: No Contact w/Someone Who Travel: No Recent Infectious Disease Expo: No Recent Hopitalizations: No Physical Abuse: No Sexual Abuse: No Mistreated: No Fear: No Immunizations Up To Date Tetanus Booster (TDap): Unknown Date of Pneumonia Vaccine: May 13, 2017 Date of Influenza Vaccine: Mar 23, 2017 Seasonal Allergies Seasonal Allergies: No Past Medical History Surgeries: Yes Respiratory: Yes COPD Currently Using CPAP: No Currently Using BIPAP: No Cardiac: Yes Coronary Artery Disease, High Cholesterol Neurological: Yes Neuropathy, Stroke Reproductive Disorders: No Sexually Transmitted Disease: No HIV/AIDS: No Genitourinary: Yes Neurogenic Bladder Gastrointestinal: Yes Gastroesophageal Reflux Musculoskeletal: Yes (amputation lt toes) Amputee, Arthritis Endocrine: Yes (DM TYPE 2) Diabetes, Insulin dep HEENT: Yes Loss of Vision: Bilateral Hearing Impairment: Hard of Hearing Cancer: No Psychosocial: Yes ADD/ADHD, Anxiety, Bipolar, Depression Integumentary: No Blood Disorders: No Adverse Reaction/Blood Tranf: No Family Medical History No Pertinent Family Hx Physical Exam Vital Signs Vital Signs - First Documented 02/23/19 02/23/19 01:04 06:56 Temp 97.1 Pulse 72 Resp 20 B/P (MAP) 138/72 (94) Pulse Ox 100 Capillary Refill : Less Than 3 Seconds Height, Weight, BMI Height: 6'0.00" Weight: 190lbs. 1.0oz. 86.637215wl; 25.9 BMI Method:Stated General Appearance: WD/WN, mild distress, other (Disheveled) HEENT: normal ENT inspection, other (Contusion/abrasion on the right forehead) Neck: non-tender, normal inspection Cardiovascular: regular rate, rhythm, no edema, no murmur Respiratory: lungs clear, normal breath sounds, no respiratory distress, no accessory muscle use Gastrointestinal: normal bowel sounds, non tender, soft Extremities: normal inspection, no pedal edema Neurologic/Psychiatric: panel lay up worker II-XII nml as tested, no motor/sensory deficits, alert, normal mood/affect, oriented x 3 Skin: normal color, warm/dry Nikki Coma Score Best Eye Response: (4) Open Spontaneously Best Verbal Response: (5) Oriented Best Motor Response: (6) Obeys Commands Nikki Total: 15 Progress/Results/Core Measures Results/Orders Lab Results Laboratory Tests Test 02/23/19 04:13 Range/Units Urine Color YELLOW Urine Clarity CLEAR Urine pH 6.5 5-9 Urine Specific [place] 1.005 L 1.016-1.022 Urine Protein NEGATIVE NEGATIVE Urine Glucose (UA) 1+ H NEGATIVE Urine Ketones NEGATIVE NEGATIVE Urine Nitrite NEGATIVE NEGATIVE Urine Bilirubin NEGATIVE NEGATIVE Urine Urobilinogen NORMAL NORMAL MG/DL Urine Leukocyte Esterase NEGATIVE NEGATIVE Urine RBC (Auto) NEGATIVE NEGATIVE Urine RBC NONE /HPF Urine WBC NONE /HPF Urine Squamous Epithelial Cells NONE /HPF Urine Crystals NONE /LPF Urine Bacteria TRACE /HPF Urine Casts NONE /LPF Urine Mucus NEGATIVE /LPF Urine Culture Indicated NO My Orders Orders - VERONICA BARNEY MD Shoulder, Right, 3 Views (02/23/19 01:32) Ct Head/Cervical Spine Wo (02/23/19 01:32) Ct Extremity Upper Right Wo (02/23/19 04:01) Hydrocodone/Apap 5/325 Tablet (Lortab 5 (02/23/19 04:15) Ua Culture If Indicated (02/23/19 05:43) Hydrocodone/Apap 5/325 Tablet (Lortab 5 (02/23/19 06:15) Shoulder Immoblizer (02/23/19 06:06) Medications Given in ED Current Medications Medications Dose Ordered Sig/Rosy Route Start Time Stop Time Status Last Admin Dose Admin Acetaminophen/ Hydrocodone Bitart 1 tab ONCE ONCE PO 02/23/19 04:15 02/23/19 04:16 DC 02/23/19 04:08 1 TAB Acetaminophen/ Hydrocodone Bitart 1 tab ONCE ONCE PO 02/23/19 06:15 02/23/19 06:16 DC 02/23/19 06:20 1 TAB Vital Signs/I&O 02/23/19 02/23/19 01:04 06:56 Temp 97.1 97.1 Pulse 72 81 Resp 20 18 B/P (MAP) 138/72 (94) 150/75 (100) Pulse Ox 100 Blood Pressure Mean: 94 Progress Progress Note : Progress Note Skin wounds do not need repair. They were cleaned and dressed by nursing staff. Complex fracture of the right shoulder was suspected by x-ray. This was followed by CT scan which confirmed fracture. Case was discussed with Dr. Duvall. He recommended a shoulder immobilizer and follow-up with him in the lin. Patient was given hydrocodone to control pain in the ER. Diagnostic Imaging Diagonstic Imaging: Xray Plain Films/CT/US/NM/MRI: other (Right shoulder) Comments Right shoulder x-ray was viewed by me. Report not yet available. Findings are suspicious for fracture. There is lucency in the humeral head that could be pathologic. CT is being ordered for further evaluation. Diagonstic Imaging: CT Plain Films/CT/US/NM/MRI: other Comments CT of right shoulder viewed by me and report reviewed. See report below: NAME: CORA [facility]RÍGUEZ JR [facility] REC#: [id number] PT STATUS: REG ER : 1950 PHYSICIAN: VERONICA BARNEY MD ADMIT DATE: 02/23/19/ER Draft Date of Exam:02/23/19 CT EXTREMITY UPPER RIGHT WO PROCEDURE: CT right upper extremity without contrast. TECHNIQUE: Multiple contiguous axial images were obtained through the right upper extremity without the use of intravenous contrast. Sagittal and coronal reformations were then performed. Auto Exposure Controls were utilized during the CT exam to meet ALARA standards for radiation dose reduction. INDICATION: Fall, laceration to the right forehead with right shoulder pain. COMPARISON: Radiograph from the same day. FINDINGS: There is an impacted fracture of the proximal right humerus extending through the surgical neck, with mild anterior displacement. This also extends through the posterior aspect of the greater tuberosity. A small chip fracture is seen at the anterior aspect of the greater tuberosity. There is a mildly comminuted fracture at the lesser tuberosity, which may be due to impaction from the coracoid process. There are mild degenerative changes in the glenohumeral joint. The acromioclavicular joint is upper normal in width. There is marked soft tissue swelling about the right shoulder. No focal muscular atrophy is seen. Multiple calcified lymph nodes are seen in the mediastinum. There are multiple nodular densities in the right lung with one nodule measuring up to 8 mm in diameter (image 202 series 3). IMPRESSION: 1. Impacted, comminuted fracture of the proximal right humerus, involving the surgical neck and greater and lesser tuberosities. There is mild anterior displacement at the surgical neck. 2. Marked soft tissue swelling about the right shoulder. 3. Small nodular densities in the right lung, which are nonspecific. Consider nonemergent CT of the chest for further evaluation. Dictated on workstation # [id number] Dict: 02/23/19 0626 Trans: 02/23/19 0634 [id number] Interpreted by: PRAVEEN FRANKS MD Diagonstic Imaging: CT Plain Films/CT/US/NM/MRI: c-spine, head Comments CT head and cervical spine report reviewed. No acute injuries identified. Departure Impression Primary Impression: Proximal humerus fracture Qualified Codes: S42.201A - Unspecified fracture of upper end of right humerus, initial encounter for closed fracture Additional Impression: Fall from wheelchair Qualified Codes: W05.0XXA - Fall from non-moving wheelchair, initial encounter Disposition: 01 HOME, SELF-CARE Condition: Improved Departure-Patient Inst. Decision time for Depature: 06:25 Referrals: CARLOS OSHEA MD (PCP/Family) Primary Care Physician GAL DUVALL MD Patient Instructions: Shoulder Fracture Add. Discharge Instructions: Keep the right arm in the shoulder immobilizer is much as possible. Follow-up with a Dr. Duvall as soon as possible. You may use hydrocodone for breakthrough pain. Colace may be used as prescribed to treat or prevent constipation while on hydrocodone. Return to care or contact your doctor with any other problems or concerns. All discharge instructions reviewed with patient and/or family. Voiced understanding. Scripts Docusate Sodium (Colace) 100 Mg Capsule 100 MG PO DAILY PRN for CONSTIPATION-1ST LINE, #20 CAP Prov: VERONICA BARNEY MD 02/23/19 Hydrocodone Bit/Acetaminophen (Hydrocodone/Acetaminophen 5/325mg Tablet) 1 Tab Tab 1 EACH PO Q4-6HR PRN for PAIN-MODERATE MDD 10, #20 TAB Prov: VERONICA BARNEY MD 02/23/19 Copy Copies To 1: GAL DUVALL MD Copies To 2: CARLOS OSHEA MD, JOSHUA T MD Feb 23, 2019 06:24
--- NOTE | 2019-02-23 06:25 | Diagnostic Imaging Report ---
PROCEDURE: CT head and CT cervical spine without contrast. TECHNIQUE: Multiple contiguous axial images were obtained through the brain and cervical spine without the use of intravenous contrast. Sagittal and coronal reformations through the cervical spine were then performed. Auto Exposure Controls were utilized during the CT exam to meet ALARA standards for radiation dose reduction. INDICATION: Fall, laceration to the right forehead. COMPARISON: 05/13/2018 FINDINGS: CT head: The ventricles and cortical sulci are mildly prominent, likely from generalized parenchymal volume loss. There are scattered areas of hypoattenuation in the white matter which are most consistent with chronic microvascular disease. No acute intracranial hemorrhage is seen. There is no CT evidence of acute territorial ischemia. The calvarium appears intact. There is soft tissue swelling and laceration over the right frontal bone. No radiopaque foreign body is seen. CT cervical spine: There is slight reversal of lordosis in the cervical spine. No spondylolisthesis is seen. There are moderate degenerative changes at C5-C6 and C6-C7. Mild degenerative changes are seen elsewhere in the cervical spine. No bony fragments or hyperdense fluid collections are seen in the spinal canal. The soft tissues about the cervical spine demonstrate no acute abnormality. IMPRESSION: 1. No acute intracranial hemorrhage or calvarium fracture. 2. Soft tissue swelling of the right frontal scalp. 3. Degenerative changes in the cervical spine with no acute fracture seen. Dictated by: Dictated on workstation # [id number]
[2019-02-23] MEDS ORDERED: ACHD5005 PO (06:29)
[2019-02-23] MEDS ORDERED: DOCU-143 PO (06:29)
--- NOTE | 2019-02-23 06:34 | Diagnostic Imaging Report ---
PROCEDURE: CT right upper extremity without contrast. TECHNIQUE: Multiple contiguous axial images were obtained through the right upper extremity without the use of intravenous contrast. Sagittal and coronal reformations were then performed. Auto Exposure Controls were utilized during the CT exam to meet ALARA standards for radiation dose reduction. INDICATION: Fall, laceration to the right forehead with right shoulder pain. COMPARISON: Radiograph from the same day. FINDINGS: There is an impacted fracture of the proximal right humerus extending through the surgical neck, with mild anterior displacement. This also extends through the posterior aspect of the greater tuberosity. A small chip fracture is seen at the anterior aspect of the greater tuberosity. There is a mildly comminuted fracture at the lesser tuberosity, which may be due to impaction from the coracoid process. There are mild degenerative changes in the glenohumeral joint. The acromioclavicular joint is upper normal in width. There is marked soft tissue swelling about the right shoulder. No focal muscular atrophy is seen. Multiple calcified lymph nodes are seen in the mediastinum. There are multiple nodular densities in the right lung with one nodule measuring up to 8 mm in diameter (image 202 series 3). IMPRESSION: 1. Impacted, comminuted fracture of the proximal right humerus, involving the surgical neck and greater and lesser tuberosities. There is mild anterior displacement at the surgical neck. 2. Marked soft tissue swelling about the right shoulder. 3. Small nodular densities in the right lung, which are nonspecific. Consider nonemergent CT of the chest for further evaluation. Dictated by: Dictated on workstation # [id number]
--- NOTE | 2019-02-23 06:34 | Diagnostic Imaging Report ---
PATIENT HISTORY: Fall, right shoulder pain. TECHNIQUE: 3 views of the right shoulder COMPARISON: None FINDINGS: There is an impacted fracture of the proximal right humerus with mild anterior displacement seen on the Y view. The fracture line appears to extend to the greater tuberosity. The glenohumeral alignment and the acromioclavicular alignment appears normal. IMPRESSION: Impacted, and displaced fracture of the proximal right humerus extending into the greater tuberosity. Dictated by: Dictated on workstation # [id number]
[2019-02-23 06:56] VITALS: BP 150/75
== END 2019-02-23 07:03 | disposition home or self-care (01) ==
LOC: ER 01:04 → EDUNIT# 01:04 → ER 07:03
DX: S42.201A Unspecified fracture of upper end of right humerus, initial encounter for closed fracture (principal); S00.83XA Contusion of other part of head, initial encounter; J44.9 Chronic obstructive pulmonary disease, unspecified; I25.10 Atherosclerotic heart disease of native coronary artery without angina pectoris; E78.00 Pure hypercholesterolemia, unspecified; E11.40 Type 2 diabetes mellitus with diabetic neuropathy, unspecified; K21.9 Gastro-esophageal reflux disease without esophagitis; F31.9 Bipolar disorder, unspecified; F90.9 Attention-deficit hyperactivity disorder, unspecified type; F41.9 Anxiety disorder, unspecified; F17.210 Nicotine dependence, cigarettes, uncomplicated; Z86.73 Personal history of transient ischemic attack (TIA), and cerebral infarction without residual deficits; Z88.1 Allergy status to other antibiotic agents; Z88.8 Allergy status to other drugs, medicaments and biological substances; Z79.82 Long term (current) use of aspirin; Z79.84 Long term (current) use of oral hypoglycemic drugs; W05.0XXA Fall from non-moving wheelchair, initial encounter
CPT/HCPCS: 70450; 72125; 73030; 73200; 81000

== ENCOUNTER → 2021-07-27 | Outpatient (CLI) | payer MEDICAID ==
[~2021-07-27] MED LIST changes: +ASPI-1238 PO; -ASPI-983 PO; -CLIN150C17 PO; +CLIN150C20 PO; +DOCU-143 PO; -FOLI1TAB24 PO; +FOLI1TAB33 PO; +GUAI-1052 PO; -GUAI-613 PO; -MENT5.8L MM; +RIVA1.5C30 PO; -RIVA1.5C6 PO; +SIMV20TA26 PO; -SIMV20TA3 PO; +SIMV40TA25 PO; -SIMV40TA4 PO; -SULF1TAB35 PO; +SULF1TAB38 PO; +TRM50T PO; +[UNRECOGNIZED DRUG - CODE] MM
[2021-07-27 17:50] LABS: BILIRUBIN,URINE NEGATIVE (NEGATIVE); CLARITY,URINE SL CLOUDY; COLOR,URINE YELLOW; GLUCOSE, URINE (UA) NEGATIVE (NEGATIVE); KETONES,URINE NEGATIVE (NEGATIVE); LEUKOCYTE ESTERASE ,URINE 2+ (NEGATIVE); NITRITE,URINE NEGATIVE (NEGATIVE); PROTEIN,URINE NEGATIVE (NEGATIVE)
[2021-07-27 18:18] LABS: BACTERIA,URINE LARGE /HPF; SQUAMOUS EPITHELIAL CELL,UR RARE /HPF; WBC,URINE 25-50 /HPF
== END ==
PROVIDERS: ATTEND Internal Medicine
DX: N39.0 Urinary tract infection, site not specified (principal)
CPT/HCPCS: 81000; 87077; 87088; 87186

== ENCOUNTER → 2021-08-24 | Outpatient (CLI) | payer MEDICARE, MEDICAID ==
[~2021-08-24] MED LIST changes: +LURA40TA2 PO; -LURA40TA3 PO
[2021-08-24 17:27] LABS: BASOPHILS % (AUTO) 0 % (0-10); EOSINOPHILS # (AUTO) 0.3 10^3/uL (0.0-0.3); EOSINOPHILS % (AUTO) 4 % (0-10); HEMATOCRIT 31 % (40-54); HEMOGLOBIN 10.3 g/dL (13.3-17.7); LYMPHOCYTES # (AUTO) 0.9 10^3/uL (1.0-4.0); LYMPHOCYTES % (AUTO) 11 % (12-44); MEAN CORPUSCULAR HEMOGLOBIN 30 pg (25-34); MEAN CORPUSCULAR HGB CONC 33 g/dL (32-36); MEAN CORPUSCULAR VOLUME 92 fL (80-99); MEAN PLATELET VOLUME 9.2 fL (9.0-12.2); MONOCYTES # (AUTO) 0.8 10^3/uL (0.0-1.0); MONOCYTES % (AUTO) 9 % (0-12); NEUTROPHILS # (AUTO) 6.9 10^3/uL (1.8-7.8); NEUTROPHILS % (AUTO) 77 % (42-75); PLATELET COUNT 280 10^3/uL (130-400)
[2021-08-24 17:39] LABS: ALBUMIN 3.8 GM/DL (3.2-4.5); POTASSIUM 4.9 MMOL/L (3.6-5.0)
[2021-08-24 17:40] LABS: CALCIUM 9.5 MG/DL (8.5-10.1)
[2021-08-24 17:41] LABS: BILIRUBIN,URINE NEGATIVE (NEGATIVE); CLARITY,URINE CLEAR; COLOR,URINE YELLOW; GLUCOSE, URINE (UA) NEGATIVE (NEGATIVE); KETONES,URINE NEGATIVE (NEGATIVE); LEUKOCYTE ESTERASE ,URINE 1+ (NEGATIVE); NITRITE,URINE NEGATIVE (NEGATIVE); PROTEIN,URINE NEGATIVE (NEGATIVE)
[2021-08-24 17:42] LABS: TOTAL PROTEIN 6.8 GM/DL (6.4-8.2)
[2021-08-24 17:43] LABS: BILIRUBIN,TOTAL 0.5 MG/DL (0.1-1.0)
[2021-08-24 17:45] LABS: CREATININE SERUM 1.04 MG/DL (0.60-1.30)
[2021-08-24 17:51] LABS: AMORPHOUS SEDIMENT,UR FEW AMOR URATES /LPF; BACTERIA,URINE FEW /HPF; CALCIUM OXALATE CRYSTALS,UR FEW /LPF
== END ==
LOC: LAB 17:09
PROVIDERS: ATTEND Internal Medicine
DX: N40.0 Benign prostatic hyperplasia without lower urinary tract symptoms (principal)
CPT/HCPCS: 36415; 80053; 81000; 85025; 86141; 87077; 87088

== ENCOUNTER 2021-09-12 23:44 | Emergency (ER) | payer MEDICARE, MEDICAID ==
[2021-09-12 23:55] VITALS: BP 147/79
[2021-09-13 03:14] LABS: BASOPHILS % (AUTO) 0 % (0-10); EOSINOPHILS # (AUTO) 0.4 10^3/uL (0.0-0.3); EOSINOPHILS % (AUTO) 3 % (0-10); HEMATOCRIT 45 % (40-54); HEMOGLOBIN 14.8 g/dL (13.3-17.7); INR 1.1 (0.8-1.4); LYMPHOCYTES % (AUTO) 9 % (12-44); MEAN CORPUSCULAR HEMOGLOBIN 29 pg (25-34); MEAN CORPUSCULAR HGB CONC 33 g/dL (32-36); MEAN CORPUSCULAR VOLUME 89 fL (80-99); MEAN PLATELET VOLUME 8.8 fL (9.0-12.2); MONOCYTES # (AUTO) 0.8 10^3/uL (0.0-1.0); MONOCYTES % (AUTO) 7 % (0-12); NEUTROPHILS # (AUTO) 9.3 10^3/uL (1.8-7.8); NEUTROPHILS % (AUTO) 81 % (42-75); PLATELET COUNT 307 10^3/uL (130-400); PROTHROMBIN TIME PATIENT 14.4 SEC (12.2-14.7); WHITE BLOOD COUNT 11.4 10^3/uL (4.3-11.0)
[2021-09-13 03:15] LABS: ALBUMIN 3.4 GM/DL (3.2-4.5); BILIRUBIN,TOTAL 0.4 MG/DL (0.1-1.0); CREATININE SERUM 1.45 MG/DL (0.60-1.30); POTASSIUM 4.4 MMOL/L (3.6-5.0); TOTAL PROTEIN 6.6 GM/DL (6.4-8.2)
[2021-09-13 03:16] LABS: COLOR,URINE YELLOW
[2021-09-13 03:17] LABS: BACTERIA,URINE LARGE /HPF; BILIRUBIN,URINE NEGATIVE (NEGATIVE); CLARITY,URINE CLOUDY; GLUCOSE, URINE (UA) NEGATIVE (NEGATIVE); KETONES,URINE 1+ (NEGATIVE); LEUKOCYTE ESTERASE ,URINE 2+ (NEGATIVE); NITRITE,URINE NEGATIVE (NEGATIVE); PROTEIN,URINE 1+ (NEGATIVE); RBC,URINE 0-2 /HPF; SQUAMOUS EPITHELIAL CELL,UR RARE /HPF; WBC,URINE 50-100 /HPF; YEAST,URINE FEW /HPF
--- NOTE | 2021-09-13 03:46 | ED Fall/Injury ---
General Stated Complaint: FALL Source: EMS Exam Limitations: other (PT WITH DEMENTIA AND IS UNABLE TO GIVE ANY INFORMATION) History of Present Illness Date Seen by Provider: Sep 12, 2021 Time Seen by Provider: 23:45 Initial Comments PT ARRIVES VIA EMS FROM [facility] PT WITH DEMENTIA AND IS ESSENTIALLY BED-BOUND/NON-AMBULATORAY PT HAD UNWITNESSED FALL-FOUND BESIDE BED BY CORRECTION STAFF. IS UNKNOWN HOW LONG HE HAD BEEN ON THE FLOOR PT HAD COMPLAINED OF LEFT FLANK PAIN/ LEFT HIP PAIN TO EMS STAFF PT DOES NOT VOICE ANY COMPLAINTS HERE AND IS NOT TALKING ON ARRIVAL EMS REPORT THAT PT IS AT NORMAL BASELINE MENTATION, ACCORDING TO CORRECTION STAFF PT IS ON ASPIRIN AND PLAVIX PT WAS STARTED ON MACROBID TODAY FOR UTI--PT WITH CHRONIC INDWELLING CATHETER. HAD BEEN RECEIVING GENTAMICIN IV SINCE 09/07/21, WAS DISCONTINUED TODAY PCP: DR. MELCHOR Allergies and Home Medications Allergies Coded Allergies: Cephalexin Monohydrate (Unverified Allergy, Unknown, 02/02/15) warfarin (Verified Allergy, Unknown, 02/23/19) Patient Home Medication List Home Medication List Reviewed: Yes Albuterol Sulfate (Albuterol Sulfate) 1.25 Mg/3 Ml Vial.neb, 1.25 MG NEB Q12H PRN for SHORTNESS OF BREATH, (Reported) Entered as Reported by: CARLOS RAE on 05/13/18 1125 Aspirin (Aspirin EC) 81 Mg Tablet.dr, 81 MG PO DAILY, (Reported) Entered as Reported by: CARLOS RAE on 05/10/15 1041 Calcium Carbonate (Calcium Carbonate) 500 Mg Tablet, 2 TAB PO Q12H PRN for HEARTBURN, (Reported) Entered as Reported by: CARLOS RAE on 05/13/18 1125 Cholecalciferol (Vitamin D3) (Vitamin D3) 1,000 Unit Capsule, 2,000 UNITS PO DAILY, (Reported) Entered as Reported by: GABINO MENDOZA on 07/06/17 1411 Ciprofloxacin HCl (Cipro) 500 Mg Tablet, 500 MG PO BID Prescribed by: CARLA PLATT on 05/15/18 1202 Clopidogrel Bisulfate (Clopidogrel) 75 Mg Tablet, 75 MG PO DAILY, (Reported) Entered as Reported by: GABINO MENDOZA on 07/06/17 1411 Docusate Sodium (Colace) 100 Mg Capsule, 100 MG PO DAILY PRN for CONSTIPATION- 1ST LINE Prescribed by: VERONICA ACEVEDO on 02/23/19 0629 Ferrous Sulfate (Ferrous Sulfate) 325 Mg Tablet, 325 MG PO DAILY, (Reported) Entered as Reported by: GABINO MENDOZA on 07/06/17 1411 Folic Acid (Folic Acid) 1 Mg Tablet, 1 MG PO DAILY, (Reported) Entered as Reported by: CARLOS RAE on 04/12/15 1033 Gabapentin (Gabapentin) 300 Mg Capsule, 300 MG PO TID, (Reported) Entered as Reported by: CARLOS RAE on 05/13/18 1125 Guaifenesin (Carlota-Tussin) 100 Mg/5 Ml Liquid, 15 ML PO Q6H PRN for COUGH, (Reported) Entered as Reported by: CARLOS RAE on 05/13/18 1125 Hydrocodone Bit/Acetaminophen (Lortab 5 Mg Tablet) 1 Tab Tab, 1 EACH PO Q4-6HR PRN for PAIN-MODERATE Prescribed by: VERONICA ACEVEDO on 02/23/19 0629 Lactobac Cmb #3/Fos/Pantethine (Probiotic & Acidophilus Cap) 1 Each Capsule, 1 CAP PO HS, (Reported) Entered as Reported by: GABINO MENDOZA on 07/06/17 141 Lurasidone HCl (Latuda) 40 Mg Tablet, 40 MG PO DAILY, (Reported) Entered as Reported by: CARLOS REA on 05/13/18 1125 Menthol (Cough Drops) 5.8 Mg Lozenge, 1 ELAINE MM EVERY 2-4 HOURS PRN for COUGH, (Reported) Entered as Reported by: GARY SANTIAGO on 07/05/17 0148 Metformin HCl (Metformin HCl) 1,000 Mg Tablet, 1,000 MG PO BID, (Reported) Entered as Reported by: DAVID LINDA on 11/18/15 0954 Multivits,Stress Formula/Zinc (Stress B with Zinc Tablet) 1 Each Tablet, 1 TAB PO DAILY, (Reported) Entered as Reported by: JEAN CLAUDE GAYTAN on 04/24/15 1133 Pioglitazone HCl (Pioglitazone HCl) 45 Mg Tablet, 45 MG PO DAILY, (Reported) Entered as Reported by: GABINO MENDOZA on 07/06/17 1411 Polyethylene Glycol 3350 (Miralax) 17 Gm Powd.pack, 17 GM PO DAILY PRN for CONSTIPATION-2ND LINE, (Reported) Entered as Reported by: GARY SANTIAGO on 07/05/17 014 Rivastigmine Tartrate (Rivastigmine) 1.5 Mg Capsule, 1.5 MG PO BID, (Reported) Entered as Reported by: GARY SANTIAGO on 07/05/17 014 Simvastatin (Simvastatin) 20 Mg Tablet, 20 MG PO HS, (Reported) Entered as Reported by: CARLOS RAE on 05/13/18 112 Tamsulosin HCl (Tamsulosin HCl) 0.4 Mg Cap.er.24h, 0.4 MG PO DAILY, (Reported) Entered as Reported by: CARLOS RAE on 05/13/18 112 Tramadol HCl (Tramadol HCl) 50 Mg Tablet, 50 MG PO 0700,1200,1600,2100, (Reported) Entered as Reported by: CARLOS RAE on 05/13/18 112 Venlafaxine HCl (Venlafaxine HCl ER) 150 Mg Cap.er.24h, 150 MG PO DAILY, (Reported) Entered as Reported by: CARLOS RAE on 05/13/18 112 Zinc Oxide (Zinc Oxide) 57 Gm Oint...g., TP Q12H, (Reported) Entered as Reported by: CARLOS RAE on 05/13/18 112 Review of Systems Review of Systems Constitutional: no symptoms reported Respiratory: no symptoms reported Cardiovascular: no symptoms reported Gastrointestinal: no symptoms reported Genitourinary: see HPI Musculoskeletal: see HPI Skin: other (MULTIPLE SCABBED SORES TO ARMS AND LOWER LEGS OF VARIOUS AGES --NONE APPEAR NEW) Psychiatric/Neurological: See HPI Past Lcxtfun-Dregum-Nrlzqd Hx Patient Social History Tobacco Use?: Yes Tobacco type used: Cigarettes Smoking Status: Former Smoker Use of E-Cig and/or Vaping Mike: Unknown if Ever Used Substance use?: Unable to obtain Alcohol Use?: Unable to obtain Immunizations Up To Date Tetanus Booster (TDap): Unknown Seasonal Allergies Seasonal Allergies: No Past Medical History Surgeries: Yes (LEFT HIP ORIF; RIGHT SHOULDER SURGERY;ALL LEFT TOES AMPUTATED. ) Amputation, Orthopedic Respiratory: Yes COPD Currently Using CPAP: No Currently Using BIPAP: No Cardiac: Yes Coronary Artery Disease, High Cholesterol Neurological: Yes (PERIPHERAL NEUROPATHY) Dementia, Neuropathy, Stroke Reproductive Disorders: No Sexually Transmitted Disease: No HIV/AIDS: No Genitourinary: Yes Benign Prostatic Hyperpl, Prostate Problems, Neurogenic Bladder, UTI-Chronic Gastrointestinal: Yes Gastroesophageal Reflux, Chronic Constipation Musculoskeletal: Yes (AMPUTATION LEFT TOES;L HIP ORIF;R SHOULDER SURGERY;R HAND CONTRACTURE;FALLS) Amputee, Arthritis, Fractures, Contracture Endocrine: Yes (DM TYPE 2) Diabetes, Non-Insulin dep HEENT: Yes Loss of Vision: Bilateral Hearing Impairment: Hard of Hearing Cancer: No Psychosocial: Yes ADD/ADHD, Anxiety, Bipolar, Depression Integumentary: No Blood Disorders: Yes (ANEMIA) Adverse Reaction/Blood Tranf: No Family Medical History No Pertinent Family Hx Physical Exam Vital Signs Capillary Refill : Height, Weight, BMI Height: 6'0.00" Weight: 190lbs. 1.0oz. 86.071326pp; 25.9 BMI Method:Stated General Appearance: WD/WN, no apparent distress HEENT: PERRL/EOMI, other (EDENTULOUS. ) Neck: non-tender Cardiovascular: regular rate, rhythm, no murmur Respiratory: chest non-tender, normal breath sounds, no respiratory distress, no accessory muscle use, other (NO EXTERNAL EVIDENCE OF TRAUMA--NO CREPITANCE, NO SUB Q AIR, NO DEFORMITY) Gastrointestinal: normal bowel sounds, non tender, soft, no organomegaly; No distended, No guarding, No rebound, No tenderness, No hernia, No mass Back: no CVA tenderness, no vertebral tenderness Extremities: normal capillary refill, other (LEFT FOOT WITH ALL TOES AMPUTATED/MID FOOT AMPUTATION. NO SIGNS OF INFECTION. NO TENDERNESS NOTED ANYWHERE TO ANY EXTREMITY. CHRONIC VENOUS STASIS CHANGES TO BILATERAL LOWER LEGS. HAS MULTIPLE SCABBED WOUNDS TO LOWER LEGS AND ARMS OF VARIOUS AGES, NONE APPEAR RECENT/TODAY. HAS SOME CONTRACTURE TO RIGHT HAND AND HAS GENERALIZED STIFFNESS TO BOTH LEGS--RIGHT> LEFT. NO SHORTENING OR ROTATION OF EITHER LEG. ) Neurologic/Psychiatric: alert, other (AWAKE, SPEECH IS CLEAR BUT IS MINIMAL. DOES NOT VOLUNTEER ANY INFORMATION. NO FOCAL DEFICIT NOTED. CAN FOLLOW A FEW SIMPLE COMMANDS. ORIENTED TO SELF, KNOWS HE IS IN A HOSPITAL. CONFUSED TO TIME AND SITUATION. POOR MEMORY. ) Skin: normal color, warm/dry, other (NO SIGNS OF RECENT/NEW TRAUMA NOTED ANYWHERE ON BODY--ALL WOUNDS ARE OLD/SCABBED. NO FRESH BRUISING NOTED ANYWHERE) Progress/Results/Core Measures Results/Orders Lab Results Laboratory Tests Test 09/12/21 23:55 09/13/21 00:25 Range/Units White Blood Count 11.4 H 4.3-11.0 10^3/uL Red Blood Count 5.04 4.30-5.52 10^6/uL Hemoglobin 14.8 13.3-17.7 g/dL Hematocrit 45 40-54 % Mean Corpuscular Volume 89 80-99 fL Mean Corpuscular Hemoglobin 29 25-34 pg Mean Corpuscular Hemoglobin Concent 33 32-36 g/dL Red Cell Distribution Width 13.1 10.0-14.5 % Platelet Count 307 130-400 10^3/uL Mean Platelet Volume 8.8 L 9.0-12.2 fL Immature Granulocyte % (Auto) 0 % Neutrophils (%) (Auto) 81 H 42-75 % Lymphocytes (%) (Auto) 9 L 12-44 % Monocytes (%) (Auto) 7 0-12 % Eosinophils (%) (Auto) 3 0-10 % Basophils (%) (Auto) 0 0-10 % Neutrophils # (Auto) 9.3 H 1.8-7.8 10^3/uL Lymphocytes # (Auto) 1.0 1.0-4.0 10^3/uL Monocytes # (Auto) 0.8 0.0-1.0 10^3/uL Eosinophils # (Auto) 0.4 H 0.0-0.3 10^3/uL Basophils # (Auto) 0.0 0.0-0.1 10^3/uL Immature Granulocyte # (Auto) 0.0 0.0-0.1 10^3/uL Prothrombin Time 14.4 12.2-14.7 SEC INR Comment 1.1 0.8-1.4 Activated Partial Thromboplast Time 35 24-35 SEC Sodium Level 134 L 135-145 MMOL/L Potassium Level 4.4 3.6-5.0 MMOL/L Chloride Level 98 98-107 MMOL/L Carbon Dioxide Level 24 21-32 MMOL/L Anion Gap 12 5-14 MMOL/L Blood Urea Nitrogen 18 7-18 MG/DL Creatinine 1.45 H 0.60-1.30 MG/DL Estimat Glomerular Filtration Rate 52 BUN/Creatinine Ratio 12 Glucose Level 116 H 70-105 MG/DL Calcium Level 9.0 8.5-10.1 MG/DL Corrected Calcium 9.5 8.5-10.1 MG/DL Total Bilirubin 0.4 0.1-1.0 MG/DL Aspartate Amino Transf (AST/SGOT) 37 H 5-34 U/L Alanine Aminotransferase (ALT/SGPT) 24 0-55 U/L Alkaline Phosphatase 75 40-136 U/L Total Protein 6.6 6.4-8.2 GM/DL Albumin 3.4 3.2-4.5 GM/DL Amylase Level 16 L 25-125 U/L Lipase 13 8-78 U/L Urine Color YELLOW Urine Clarity CLOUDY H Urine pH 6.0 5-9 Urine Specific [place] >=1.030 1.016-1.022 Urine Protein 1+ H NEGATIVE Urine Glucose (UA) NEGATIVE NEGATIVE Urine Ketones 1+ H NEGATIVE Urine Nitrite NEGATIVE NEGATIVE Urine Bilirubin NEGATIVE NEGATIVE Urine Urobilinogen 0.2 < = 1.0 MG/DL Urine Leukocyte Esterase 2+ H NEGATIVE Urine RBC (Auto) 2+ H NEGATIVE Urine RBC 0-2 /HPF Urine WBC 50-100 H /HPF Urine Squamous Epithelial Cells RARE /HPF Urine Crystals NONE /LPF Urine Bacteria LARGE H /HPF Urine Casts NONE /LPF Urine Mucus NEGATIVE /LPF Urine Yeast FEW H /HPF Urine Culture Indicated YES My Orders Orders - NYLA IBRAHIM DO Cbc With Automated Diff (09/12/21 23:55) Amylase (09/12/21 23:55) Comprehensive Metabolic Panel (09/12/21 23:55) Lipase (09/12/21 23:55) Protime With Inr (09/12/21 23:55) Partial Thromboplastin Time (09/12/21 23:55) Urinalysis (09/13/21 00:25) Urine Culture (09/13/21 00:25) Progress Progress Note : Progress Note PT HAD NO COMPLAINTS FOR ENTIRE ER STAY PT RESTED QUIETLY PT WAS MORE VERBAL PRIOR TO DISMISSAL, AND EXPLAINED TO HIM THAT ALL OF HIS XRA YS AND SCANS DID NOT SHOW ANY INJURIES, AND PT APPEARED TO UNDERSTAND. PT ABLE TO ANSWER A FEW YES/NO QUESTIONS AND WAS ASKING IF SOMEONE WAS GOING TO TAKE HIM BACK HOME. SPEECH IS CLEAR. Initial ECG Impression Date: Sep 13, 2021 Initial ECG Impression Time: 00:58 Initial ECG Rate: 109 Initial ECG Rhythm: S.Tach (MUCH ARTIFACT. ) Diagnostic Imaging Comments CXR--NO ACUTE PROCESS, PENDING RADIOLOGIST REVIEW PELVIS XRAY--NO ACUTE PROCESS, LEFT HIP HARDWARE INTACT--PENDING RADIOLOGIST REVIEW CT HEAD/CERVICAL SPINE--NO ACUTE PROCESS, CHRONIC / DEGENERATIVE CHANGES-- PER [facility] VIA FAX AT 0124 CT THORACIC/LUMBAR SPINE--NO ACUTE PROCESS, CHRONIC/DEGENERATIVE CHANGES. 3.2 CM AORTIC ANEURYSM--PER [facility] VIA FAX AT 0124 CT CHEST / ABDOMEN/ PELVIS--NO ACUTE PROCESS, 3.2 CM AORTIC ANEURYSM, THICKENED BLADDER WALL--PER [facility] VIA FAX AT 0128 Reviewed: Reviewed by Me Departure Impression Primary Impression: Unwitnessed fall Additional Impressions: UTI (urinary tract infection) Dementia Disposition: 03 XFER SNF Condition: Stable Departure-Patient Inst. Decision time for Depature: 01:30 Referrals: RIK MELCHOR MD Patient Instructions: Preventing Falls ED Add. Discharge Instructions: CONTINUE CURRENT MEDICATIONS PRESCRIBED. NYLA IBRAHIM DO Sep 13, 2021 03:45
--- NOTE | 2021-09-13 06:28 | Diagnostic Imaging Report ---
EXAMINATION: Chest 1 view HISTORY: Fall. Chest pain. COMPARISON: 05/13/2018. FINDINGS: The lung volumes are normal. No focal consolidation is seen. No large pleural effusion or pneumothorax is seen. The cardiomediastinal silhouette is normal in size and contour. No acute osseous abnormality is seen. IMPRESSION: 1. No acute pleuroparenchymal process. Dictated by: Dictated on workstation # [id number]
--- NOTE | 2021-09-13 06:31 | Diagnostic Imaging Report ---
PROCEDURE: CT head and CT cervical spine without contrast. TECHNIQUE: Multiple contiguous axial images were obtained through the brain and cervical spine without the use of intravenous contrast. Sagittal and coronal reformations through the cervical spine were then performed. Auto Exposure Controls were utilized during the CT exam to meet ALARA standards for radiation dose reduction. INDICATION: Fall. Head and neck pain. COMPARISON: 02/23/2019. FINDINGS: CT head: No large acute territorial ischemia, mass, or hemorrhage. No midline shift or mass effect. Decreased attenuation is seen in the periventricular and subcortical white matter. The ventricles and cortical sulci are prominent. The basilar cisterns are patent and unremarkable. The calvarium is intact. The visualized paranasal sinuses are clear. CT cervical spine: No acute fracture or dislocation is seen in the cervical spine. No focal osseous lesions. Vertebral body heights are well-maintained. The craniocervical junction is well-maintained. [id number] degenerative changes are seen in the cervical spine with disc osteophyte complexes and uncovertebral arthropathy. Soft tissues of the neck are unremarkable. The lung apices are clear. IMPRESSION: 1. No hemorrhage or focal intra-axial mass. No CT evidence of large acute territorial ischemia. 2. No acute fracture or dislocation in the cervical spine. Agree with overnight report. Dictated by: Dictated on workstation # [id number]
--- NOTE | 2021-09-13 06:48 | Diagnostic Imaging Report ---
EXAMINATION: Pelvis, single view. COMPARISON: November 17, 2015. HISTORY: 70-year-old male, fall. FINDINGS: The bones appear demineralized. There is an intramedullary bob and dynamic fixation screw at the level of the left femur with left intertrochanteric femur deformity relating to healed prior fracture. There is no identified acute fracture. The pubic symphysis and sacroiliac joints are normally aligned. The hips are not obviously dislocated. IMPRESSION: 1. Bone demineralization without identified acute fracture or other acute osseous abnormality. Dictated by: Dictated on workstation # [id number]
--- NOTE | 2021-09-13 06:50 | Diagnostic Imaging Report ---
Procedure: CT thoracic and lumbar spine without contrast. Technique: Multiple contiguous axial images were obtained through the thoracic and lumbar spine without the use of intravenous contrast. Sagittal and coronal reformations were then performed. All CT scans use one or more of the following dose optimizing techniques: automated exposure control, MA and/or KvP adjustment based on a patient size and exam type, or iterative reconstruction. Date: September 13, 2021. Indication: 70-year-old male, fall. Mid and lower back pain. Comparison: None. Findings: There is no identified acute fracture of the thoracic or lumbar spine. There are multilevel degenerative changes of the thoracic and lumbar spine. CT is limited for assessment of disc pathology as well as additional non-bony causes of pathology in the spinal canal. There is a mild diffuse disc bulge at L2-L3 without CT apparent high-grade foraminal or spinal stenosis. There is also a diffuse disc bulge at L3-L4 with suspected mild right foraminal narrowing and likely at least mild spinal stenosis. There is also a diffuse disc bulge at L4-L5 with suspected moderate left and mild right foraminal narrowing and moderate spinal stenosis. There is severe disc height loss at L2-L3, L3-L4, and moderate disc height loss at L4-L5. Impression: 1. No identified acute fracture of the thoracic or lumbar spine. 2. Multilevel degenerative changes of the spine including as described specifically above at the level of the lumbar spine. Agree with provided preliminary report. Dictated by: Dictated on workstation # [id number]
--- NOTE | 2021-09-13 06:55 | Diagnostic Imaging Report ---
Procedure: CT chest, abdomen, and pelvis without contrast. Technique: Multiple contiguous axial images were obtained through the chest, abdomen, and pelvis without the use of intravenous contrast. Auto Exposure Controls were utilized during the CT exam to meet ALARA standards for radiation dose reduction. Date: September 13, 2021. Indication: 70-year-old male, fall. Comparison: CT abdomen pelvis January 18, 2015. Findings: There is a 6 mm calcified right middle lobe granuloma. There is some respiratory motion artifact present. There is nonspecific opacification within right lower lobe bronchi. There is a 2 mm left lower lobe pulmonary nodule which is likely calcified. There is no otherwise noted focal airspace consolidation. There is no pneumothorax. There is no pleural effusion. The more central airways are patent. There are calcified mediastinal and hilar lymph nodes compatible with sequela of prior granulomatous disease. The heart is not enlarged. There is no pericardial effusion. There are atherosclerotic calcifications. There is no identified mediastinal hematoma. There is no identified abnormally enlarged noncalcified mediastinal or axillary lymph node meeting CT size criteria for adenopathy. The liver is unremarkable in size and contour. There is no biliary ductal dilation. The pancreas is unremarkable. Splenic calcifications likely relate to prior granulomatous disease. There is no splenomegaly. There is no abnormal fluid adjacent to either the spleen or liver. Unremarkable appearance of the renal parenchyma on limited noncontrast assessment. The urinary collecting systems are not distended. There is a Cisneros catheter within the urinary bladder which is collapsed and otherwise not well-evaluated. There are limitations for assessment of acute abdominal parenchymal organ injury given the lack of intravenous contrast as well as limited assessment of the vasculature. There is no free intraperitoneal air. There is no drainable fluid collection. There is no free pelvic fluid. There is aneurysmal dilation of the infrarenal abdominal aorta measuring up to 3.1 x 3.0 cm in diameter. There is an intramedullary bob with dynamic fixation screw at the level of the left proximal femur. The bones appear likely demineralized. There are multilevel degenerative changes of the spine. There is a chronic appearing right posterior 11th rib deformity. There is sideplate and screw fixation hardware at the level of the right proximal humerus. There is no identified acute fracture at the level of the chest, abdomen, or pelvis. Impression: 1. No identified acute abnormality at the level of the chest, abdomen, or pelvis. 2. Infrarenal abdominal aortic aneurysm measuring 3.1 x 3.0 cm in size. Agree with the provided preliminary report. Dictated by: Dictated on workstation # [id number]
== END 2021-09-13 03:30 | disposition home or self-care (01) ==
LOC: EDUNIT# 23:44 → ER 23:44
DX: N39.0 Urinary tract infection, site not specified (principal); F03.90 Unspecified dementia, unspecified severity, without behavioral disturbance, psychotic disturbance, mood disturbance, and anxiety; Z87.891 Personal history of nicotine dependence
CPT/HCPCS: 36415; 70450; 71045; 71250; 72125; 72128; 72131; 72170; 74176; 80053; 81000; 82150; 83690; 85025; 85610; 85730; 87077; 87088; 87186; 93005